=== PATIENT | female | born 1940 | race Caucasian/White ===

== ENCOUNTER 2017-10-02 06:03 | Inpatient (IN) | payer OTHER ==
[2017-09-07 14:20] VITALS: BMI 43.0
--- NOTE | 2017-09-07 14:48 | PAT Medication Instructions ---
Service Date Sep 07, 2017. Current Home Medication List Acetaminophen (Tylenol), 1,000 MG PO TID PRN for RN Albuterol Sulfate (Proair Respiclick), 2 PUFFS INH PRN Aloe Vera (Topical) (Aloe Vera), 1 TAB PO HS Amoxicillin (Amoxil), 2,000 MG PO UD PRN for RN Anastrozole (Arimidex), 1 MG PO QPM Aspirin (Aspirin Ec), 81 MG PO QAM Bioflavonoid Products (Nelia-C), 1 TAB PO QPM Biotin (Biotin 5000), 5 MG PO QAM Buspirone Hcl (Buspar), 5 MG PO BID Calcium Carbonate-Vitamin D (Calcium + D), 1 TAB PO QAM Carvedilol (Coreg), 25 MG PO BID Cholecalciferol (Vitamin D3), 1 TAB PO QPM Coenzyme Q10 (Ubidecarenone) (Coq10), 150 MG PO QAM Flaxseed (Linseed) (Flax Seed Oil), 1 TAB PO QPM Hydrochlorothiazide (Hydrochlorothiazide), 0.5 TAB PO QAM Lactobacillus (Probiotic Acidophilus), 1 TAB PO QAM Levothyroxine Sodium (Levothyroxine Sodium), 1 TAB PO QAM Losartan Potassium (Cozaar), 100 MG PO QAM Mometasone Furoate (Inhalation (Asmanex Hfa), 2 PUFFS INH QPM Ocuvite Preservision (Ocuvite Preservision), 1 TAB PO HS Omeprazole (Prilosec), 40 MG PO QAM Pravastatin (Pravachol ), 10 MG PO HS [Bee Pollen], 1 TAB PO QAM [Beet Root], 500 MG PO BID [Cellular Antioxidant], 1 TAB PO QPM [Garlic Parsley], 3 TAB PO BID [Zinc], 50 MG PO QPM Medication Instructions For Your Scheduled Surgery -Continue as directed: Amoxicillin (Amoxil), 2,000 MG PO UD PRN for RN -Contact your prescriber for instructions for: Anastrozole (Arimidex), 1 MG PO QPM - Hold the following medications 2 weeks prior to surgery: [Bee Pollen], 1 TAB PO QAM [Beet Root], 500 MG PO BID [Cellular Antioxidant], 1 TAB PO QPM [Garlic Parsley], 3 TAB PO BID Coenzyme Q10 (Ubidecarenone) (Coq10), 150 MG PO QAM Flaxseed (Linseed) (Flax Seed Oil), 1 TAB PO QPM - Hold the following medications 24 hours prior to surgery: Aloe Vera (Topical) (Aloe Vera), 1 TAB PO HS - Hold the following medications the morning of surgery: Biotin (Biotin 5000), 5 MG PO QAM Calcium Carbonate-Vitamin D (Calcium + D), 1 TAB PO QAM Hydrochlorothiazide (Hydrochlorothiazide), 0.5 TAB PO QAM Lactobacillus (Probiotic Acidophilus), 1 TAB PO QAM Losartan Potassium (Cozaar), 100 MG PO QAM - Take the following medications the morning of surgery with a sip of water: Acetaminophen (Tylenol), 1,000 MG PO TID PRN for RN (if needed, can be taken up to four hours prior to surgery) Albuterol Sulfate (Proair Respiclick), 2 PUFFS INH PRN (if needed, and bring it with you to the hospital) Aspirin (Aspirin Ec), 81 MG PO QAM Buspirone Hcl (Buspar), 5 MG PO BID Carvedilol (Coreg), 25 MG PO BID Levothyroxine Sodium (Levothyroxine Sodium), 1 TAB PO QAM Omeprazole (Prilosec), 40 MG PO QAM - Take the following medications as scheduled the night before surgery: Acetaminophen (Tylenol), 1,000 MG PO TID PRN for RN (if needed) Albuterol Sulfate (Proair Respiclick), 2 PUFFS INH PRN (if needed) Bioflavonoid Products (Nelia-C), 1 TAB PO QPM Cholecalciferol (Vitamin D3), 1 TAB PO QPM Buspirone Hcl (Buspar), 5 MG PO BID Carvedilol (Coreg), 25 MG PO BID Mometasone Furoate (Inhalation (Asmanex Hfa), 2 PUFFS INH QPM Ocuvite Preservision (Ocuvite Preservision), 1 TAB PO HS Pravastatin (Pravachol ), 10 MG PO HS [Zinc], 50 MG PO QPM If you have any questions please call us at [phone] or [phone] or [phone]
--- NOTE | 2017-09-07 15:45 | DIAGNOSTIC IMAGING REPORT ---
CHEST 2 VIEWS ROUTINE HISTORY: 77 years-old Female PAT preoperative exam. No acute chest complaints. COMPARISON: None available TECHNIQUE: PA and lateral views of the chest FINDINGS: Cardiac silhouette is within normal limits. No pneumothorax, pleural effusion or overt pulmonary edema. There is increased lucency about the left lung compared to the right. Areas of chronic interstitial coarsening are noted, greatest about the right lung with subpleural reticular opacities of the lateral left lung base. Bones appear grossly intact. Degenerative changes are seen within the shoulders and spine. Surgical clips project over the upper abdomen. IMPRESSION: 1. No acute process identified. 2. Areas of bilateral interstitial coarsening, right greater then left favor chronic changes. Correlate with prior imaging. 2. Hyperinflation with possible emphysema. The above report was generated using voice recognition software. It may contain grammatical, syntax or spelling errors. Electronically signed by: Matt Cunningham M.D. 09/07/2017 3:44 PM Dictated Date/Time: 09/07/2017 3:42 PM
[2017-09-07 16:04] LABS: BASO % 0.8 %; BASO ABS # 0.03 K/uL (0-0.2); EOS % 3.1 %; EOS ABS # 0.12 K/uL (0-0.5); HEMOGLOBIN 13.2 g/dL (12.0-16.0); IG# 0.01 K/uL (0.00-0.02); LYMPH % 25.6 %; LYMPH ABS # 0.98 K/uL (1.2-3.4); MEAN CELL VOLUME 89.4 fL (80-100); MEAN CORPUSCULAR HEMOGLOBIN 31.1 pg (25-34); MEAN CORPUSCULAR HGB CONC 34.7 g/dl (32-36); MEAN PLATELET VOLUME 9.8 fL (7.4-10.4); MONO % 17.2 %; MONO ABS # 0.66 K/uL (0.11-0.59); NEUT ABS # 2.03 K/uL (1.4-6.5); PLATELET COUNT 120 K/uL (130-400); RED CELL DISTRIBUTION WIDTH CV 13.6 % (11.5-14.5); RED CELL DISTRIBUTION WIDTH SD 44.6 fL (36.4-46.3); WHITE BLOOD COUNT 3.83 K/uL (4.8-10.8)
[2017-09-07 16:14] LABS: PTT PATIENT 23.3 SECONDS (21.0-31.0)
[2017-09-07 16:23] LABS: ALBUMIN 3.9 gm/dl (3.4-5.0); CREATININE 0.82 mg/dl (0.60-1.20); POTASSIUM 4.5 mmol/L (3.5-5.1)
[2017-09-08 07:47] LABS: HEMOGLOBIN A1C 5.9 % (4.5-5.6)
--- NOTE | 2017-09-27 14:56 | HISTORY & PHYSICAL EXAMINATION ---
DATE OF ADMISSION: 10/02/2017 CHIEF COMPLAINT: Left knee pain. HISTORY OF PRESENT ILLNESS: Ms. Luna is a 77-year-old female with a 20-year history of left knee pain. The patient rates her pain as 8/10. She has pain with her daily activities. She has limited standing and walking tolerance. Pain is worse with weightbearing. The patient has had injections, Tylenol, PT and ambulates with a walker. She has failed conservative treatment and is scheduled for left knee replacement. PAST MEDICAL HISTORY: History of breast cancer, hypertension, hyperlipidemia, asthma, AFib, thyroid disease. She denies diabetes or DVT. PAST SURGICAL HISTORY: Right TKA and cardiac ablation. SOCIAL HISTORY: The patient denies alcohol or tobacco use. She lives in a 2-greg home. She does have a chair lift. She is and retired. FAMILY HISTORY: Negative for DVT. MEDICATIONS: Buspirone 5 mg b.i.d., calcium citrate plus D3, Nelia-C 1000 mg, Asmanex 220 mcg 2 puffs daily, ProAir HFA 90 mcg p.r.n. ALLERGIES: BACTRIM, CELEBREX, TERRAMYCIN. REVIEW OF SYSTEMS: See HPI. Ten other systems reviewed, all negative. PHYSICAL EXAMINATION: VITAL SIGNS: Height 5 foot 5 inches, weight 262 pounds, BMI 44. GENERAL: This is a well developed, well nourished female who is alert and oriented x3. Mood and affect are appropriate. HEENT: Normocephalic, atraumatic. Mucous membranes are moist and intact. NECK: Supple without lymphadenopathy. HEART: Regular rate and rhythm. She has a grade 3 systolic murmur. LUNGS: Clear to auscultation without wheezes or rhonchi. ABDOMEN: Soft and nontender. Bowel sounds are equal and active. EXTREMITIES: No ecchymosis, redness or warmth. She has moderate distal edema. She is neurovascularly intact. She has varus deformity. Range of motion is from 10-90 degrees with no medial or lateral laxity. She is otherwise neurovascularly intact. X-RAY EXAMINATION: AP and lateral views showed joint space narrowing and osteophyte formation. IMPRESSION: 1. Degenerative joint disease, left knee. 2. Morbid obesity. PLAN: The patient will be admitted for a left total knee arthroplasty. We will plan on aspirin for DVT prophylaxis. The patient will have [facility] for home physical therapy.
[~2017-10-02] VITALS: Ht 165.1 cm; Wt 118.8 kg
[2017-10-02] VITALS (9 sets, daily range): BP systolic 126–186; BP diastolic 81–95; PULSE 63–97; TEMP 36.4–36.9; O2SAT 95–99; Ht 165.1 cm; Wt 118.8 kg
[~2017-10-02 06:03] MED LIST: ACET-1256 PO; ACETAMINOPHEN 500 MG TAB PO SCH; ALBU18002 INH; ALOE1GEL2 PO; AMOX500C3 PO; ANAS1TAB19 PO; ASPI81TA28 PO; BEE POLLEN PO; BEET ROOT PO; BIOF500T PO; BIOTCAP2 PO; BUSP15TA70 PO; CALC600T9 PO; CARV25TA2 PO; CEFAZOLIN 2000MG IV PUSH 15 ML IV SCH; CHOL20007 PO; COEN150C4 PO; DEXAMETHASONE 4 MG TAB PO SCH; FAMOTIDINE 20 MG TAB PO SCH; FLAX1CAP11 PO; GABAPENTIN 300 MG CAP PO SCH; GARLIC PARSLEY PO; HYDR12.55 PO; LACT1CAP21 PO; LACTATED RINGER'S 1000ML 1,000 ML IV SCH; LACTATED RINGER'S 1000ML 500 ML IV SCH; LEVO100T7 PO; LOSA1TAB38 PO; METOCLOPRAMIDE HCL 10 MG TAB PO SCH; MOME1AER5 INH; MULT-190 PO; PRAV20TA PO; PRLSR20 PO; ROPIVACAINE 5MG/ML 30 ML 150 MG, BUPIVACAINE 0.5% MPF INJ 30 ML, EpINEphrine HCL INJ 0.... INFIL SCH; ZINC PO; [UNRECOGNIZED DRUG - OTHER] PO
--- NOTE | 2017-10-02 07:00 | History & Physical Bridge Note ---
H&P Re-Evaluation Bridge Note: I have examined the patient, reviewed the History & Physical and in the interval since the performance of the History & Physical I have noted the following changes of clinical significance: No changes noted
[2017-10-02] MEDS ORDERED: BUPIVACAINE 0.5 % 5 MG/1 ML PF 10ML VIAL ONE (07:34)
[2017-10-02] MEDS ORDERED: ROPIVACAINE 0.5% 5 MG/ML 30 ML VIAL ONE (07:34)
[2017-10-02] MEDS ORDERED: BACITRACIN 50000 UNIT VIAL ONE (08:37)
[2017-10-02] MEDS ORDERED: POVIDONE-IODINE OP SOLN 30 ML BTL ONE (08:37)
[2017-10-02] MEDS ORDERED: ORTHO JOINT ANESTHETIC ONE (08:37)
[2017-10-02] MEDS ORDERED: MIDAZOLAM HCL 1 MG/ML 2ML VIAL ONE (08:40)
[2017-10-02] MEDS ORDERED: FENTANYL CITRATE INJ 50 MCG/1 ML 2 ML VIAL ONE (08:41)
[2017-10-02] MEDS ORDERED: EpHEDrine SULFATE INJ 50 MG/ML AMP IV PRN (08:45)
[2017-10-02] MEDS ORDERED: FENTANYL CITRATE INJ 50 MCG/1 ML 2 ML VIAL IV PRN (08:45)
[2017-10-02] MEDS ORDERED: HYDROmorphone INJ 0.5 MG/0.5 ML SYR IV PRN (08:45)
[2017-10-02] MEDS ORDERED: ATROPINE SULFATE 0.1 MG/ML 5ML SYR IV PRN (08:45)
[2017-10-02] MEDS ORDERED: MEPERIDINE HCL 25 MG/ML CARP IV PRN (08:45)
[2017-10-02] MEDS ORDERED: ONDANSETRON INJ 2 MG/ML 2 ML VIAL IV PRN ×2 (08:45→11:15)
[2017-10-02] MEDS: TRANEXAMIC ACID INJ 1,000 MG x 2 Bags IV SCH ×4 (09:00→13:50)
[2017-10-02] MEDS ORDERED: PROPOFOL IV EMULSION 10 MG/ML 20 ML VIAL IV ONE (09:56)
--- NOTE | 2017-10-02 10:29 | [facility] Post Operative Brief Note ---
Immediate Operative Summary Operative Date Oct 02, 2017. Pre-Operative Diagnosis Degenerative joint disease, left knee Post-Operative Diagnosis Same as preop Procedure(s) Performed Left Total Knee Arthroplasty utilizing onlinetours journey to patient match total knee arthroplasty size 5 femur 4 tibia 15 polyethylene [address] Santiago Dispatcher Service Surgeon(s) Carina Pulido PA-C Estimated Blood Loss 5 cc Findings Consistent with Post-Op Diagnosis Specimens A: left knee bone and tissue Anesthesia Type MAC Spinal Regional Complication(s) none Disposition Disposition: Recovery Room / PACU
--- NOTE | 2017-10-02 10:31 | [facility] Operative Report ---
Operative Report Operative Date Oct 02, 2017. Pre-Operative Diagnosis Degenerative joint disease, left knee Post-Operative Diagnosis Same as preop Procedure(s) Performed Left Total Knee Arthroplasty utilizing [employer] journey to patient match total knee arthroplasty size 5 femur 4 tibia 15 polyethylene [address] Santiago Business Partner Surgeon(s) Carina Pulido PA-C Estimated Blood Loss 5 cc Findings Patient presents with severe end-stage tricompartmental degenerative joint disease left knee no response to conservative therapy including physical therapy anti-inflammatories relative rest activity modification injections at the 5 surgeon is evidence of subchondral sclerosis cystic changes marginal osteophytes she has varus alignment of knee with crepitation and a large effusion Specimens A: left knee bone and tissue Anesthesia Type MAC Spinal Regional Complication(s) none Disposition Recovery Room / PACU Indications Patient presents with severe end-stage tricompartment degenerative joint disease left knee bone the bone changes subchondral sclerosis marginal osteophytes subchondral cystic changes with significant eburnated bone bone to bone changes medial compartment and patellofemoral compartment should be no response to conservative therapy including physical therapy relative rest activity modification she is ligamentous instability due to the significant severe nature of the meniscal articular cartilage loss she presents for total knee arthroplasty Description of Procedure After proper prepping and draping of the left lower extremity anterior midline incision was made over the region of the extensor extensor mechanism after meticulous hemostasis was obtained and maintained in subcutaneous tissues a medial parapatellar incision was made The patella was subluxed lateralward the medial lateral gutter were cleaned from any hypertrophic synovitis and scar tissue of the distal femoral block was placed and the distal femoral osteotomy cut was made subsequently the chamfers anterior and posterior osteotomy cuts were made utilizing the 4-in-1 block the tibia was subsequently subluxed anteriorward medial and ateral meniscal remnants were excised in their entirety remnants of the anterior and posterior cruciate ligaments were excised in their entirety excellent exposure of the proximal tibia was obtained the tibial osteotomy guide was placed on the proximal tibial osteotomy cut was made once again the knee was irrigated with copious amounts of sterile saline solution the patella was subsequently everted lateralward thickened scar tissue around the patella was removed the patella was subsequently cut utilizing a freehand technique and was drilled prepared for final preparation and placement of patella socially flexion-extension gaps were checked and the equal and symmetric trials were placed to the appropriate femoral and tibial trials with poly-spacer being placed for equal flexion and extension gaps and full range of motion including extension to 0 and flexion to 140 the trial components after having been taken to recovery range of motion was subsequently removed meticulous hemostasis was obtained and maintained subsequently a knee block injection of joint cocktail including ropivacaine 0.5% 150 mg. Bupivacaine 0.5 % epinephrine 1-200,030 mL's toradol 30 mg dexamethasone 4 mg ketamine 10 mg clonidine 100 micrograms normal saline solution 30 mg was infiltrated into the soft tissues of the posterior knee medial lateral gutters and periosteal synovium special attention was paid to protect neurovascular structures at all times subsequently trial components having been removed the knee was irrigated with sterile saline solution. debris was removed the proximal tibia was subsequently prepared and was made ready for the placement of the tibial component tibial component was also cemented and tamped into position the femoral component was subsequently placed and cemented in the position the patellar component was subsequently cemented in position because hemostasis once again obtained and maintained wound having been thoroughly irrigated with debridement and debridement lavage was performed as well as a medial parapatellar incision closed with #1 Vicryl in interrupted fashion subcutaneous was closed with #2 Vicryl skin was closed with skin clips. PA-C was necessary for prepping and drapping as well as wound closure of deep fascia Sub cutaneous tissue and skin and was necessary for the case. A sterile compressive dressing was placed patient was taken to recovery in stable condition of report dictated by Jack I attest to the content of the Intraoperative Record and any orders documented therein. Any exceptions are noted below. I attest to the content of the Intraoperative Record and any orders documented therein. Any exceptions are noted below.
[2017-10-02] MEDS ORDERED: KETOROLAC TROMETHAMINE 15 MG/ML VIAL IV. PRN (11:15)
[2017-10-02] MEDS ORDERED: MoRPHine SULFATE 2 MG/ML CARP IV PRN (11:15)
[2017-10-02] MEDS ORDERED: BISACODYL 10 MG SUPP PR PRN (11:15)
[2017-10-02] MEDS ORDERED: ZOLPIDEM TARTRATE 5 MG TAB PO PRN (11:15)
[2017-10-02] MEDS ORDERED: ALBUTEROL HFA INHALER 8.5 GM INH PRN (11:15)
[2017-10-02] MEDS ORDERED: MAGNESIUM HYDROXIDE SUSP 30 ML UDC PO PRN (11:15)
[2017-10-02] MEDS ORDERED: SOD PHOSPHATE/SOD BIPHOSPHATE ENEMA 132 ML BTL PR PRN (11:15)
[2017-10-02] MEDS: LABETALOL HCL IV 5 MG/ML 20ML IV PRN ×3 (11:32→12:08)
[2017-10-02] MEDS ORDERED: NURSING VERBAL MED ORDER ONE (11:35)
[2017-10-02] MEDS ORDERED: LORAZEPAM 2 MG/ML 1 ML VIAL ONE (11:37)
--- NOTE | 2017-10-02 11:58 | DIAGNOSTIC IMAGING REPORT ---
LEFT KNEE 2 VIEWS History: Left total knee arthroplasty. Degenerative arthritis. Postop. FINDINGS: The patient is status post a left total knee arthroplasty. The hardware is intact. No fracture or dislocation. Skin gisella and surgical drains are in place. IMPRESSION: Left total knee arthroplasty. No evidence for hardware complication. Electronically signed by: Estrada Bower M.D. 10/02/2017 11:56 AM Dictated Date/Time: 10/02/2017 11:56 AM
--- NOTE | 2017-10-02 13:34 | Anesthesiology Progress Note ---
Anesthesia Post Op Note Date & Time Oct 02, 2017 at 13:33 Vital Signs Pain Intensity: 0.0 Vital Signs Past 12 Hours Date Time Temp Pulse Resp B/P (MAP) Pulse Ox O2 Delivery O2 Flow Rate FiO2 10/02/17 13:10 Nasal Cannula 2.0 10/02/17 13:00 36.6 89 18 155/95 (115) 97 Nasal Cannula 2.0 10/02/17 12:45 85 14 117/65 95 Nasal Cannula 2 10/02/17 12:30 67 15 116/80 95 Nasal Cannula 2 10/02/17 12:20 36.8 80 13 148/84 95 Nasal Cannula 2 10/02/17 12:10 73 13 159/90 97 Nasal Cannula 2 10/02/17 12:00 70 15 176/101 98 Nasal Cannula 2 10/02/17 11:50 78 16 181/102 99 Nasal Cannula 2 10/02/17 11:40 80 17 188/107 100 Nasal Cannula 2 10/02/17 11:30 80 16 171/101 100 Nasal Cannula 2 10/02/17 11:20 81 19 166/101 100 Nasal Cannula 2 10/02/17 11:10 37.2 79 12 160/93 97 Nasal Cannula 2 10/02/17 07:59 36.4 63 20 186/81 99 Room Air Notes Mental Status: alert / awake / arousable, participated in evaluation Pt Amnestic to Procedure: Yes Nausea / Vomiting: adequately controlled Pain: adequately controlled Airway Patency, RR, SpO2: stable & adequate BP & HR: stable & adequate Hydration State: stable & adequate Neuraxial Anesthesia: was administered, sensory block is resolving Anesthetic Complications: no major complications apparent
[2017-10-02] MEDS: D5W AND 1/2NSS + 20MEQ KCL 1,000 ML IV SCH ×2 (13:47→23:39)
[2017-10-02] MEDS: ACETAMINOPHEN 500 MG TAB PO SCH ×2 (13:49→21:34)
[2017-10-02] MEDS: LOSARTAN POTASSIUM 50 MG TAB PO SCH (13:54)
[2017-10-02] MEDS: OXYCODONE HCL IR 5 MG TAB (IMMEDIATE RELEASE) PO PRN ×2 (16:50→18:12)
[2017-10-02] MEDS: CEFAZOLIN IV 2,000 MG in SYRINGE 0 ML IV SCH (18:13)
[2017-10-02] MEDS: PRAVASTATIN SOD 20 MG TAB PO SCH (21:29)
[2017-10-02] MEDS: DOCUSATE SODIUM 100 MG CAP PO SCH (21:30)
[2017-10-02] MEDS: MOMETASONE FUROATE 14 PUFF/1 INHALER INH SCH (21:30)
[2017-10-02] MEDS: SENNA 8.6 MG TAB PO SCH (21:31)
[2017-10-02] MEDS: ANASTROZOLE 1 MG TAB PO SCH (21:33)
[2017-10-02] MEDS: CEROVITE ADV FORMULA TAB PO SCH (21:35)
[2017-10-02] MEDS: ASPIRIN 81 MG ECTAB PO SCH (21:35)
[2017-10-02] MEDS: CHOLECALCIFEROL 1000 INTER.UNIT TAB PO SCH (21:36)
[2017-10-02] MEDS: CARVEDILOL 25 MG TAB PO SCH ×2 (21:45→22:17)
[2017-10-03] MEDS: CEFAZOLIN IV 2,000 MG in SYRINGE 0 ML IV SCH (01:31)
[2017-10-03] MEDS: OXYCODONE HCL IR 5 MG TAB (IMMEDIATE RELEASE) PO PRN ×4 (01:32→20:13)
[2017-10-03 03:00] VITALS: BP 144/85; PULSE 69; TEMP 36.4; O2SAT 98
[2017-10-03] MEDS: LEVOTHYROXINE 100 MCG TAB PO SCH (05:50)
[2017-10-03] MEDS: ACETAMINOPHEN 500 MG TAB PO SCH ×3 (05:50→21:30)
[2017-10-03 06:14] LABS: HEMATOCRIT 28.9 % (37-47); MEAN CELL VOLUME 89.5 fL (80-100); MEAN CORPUSCULAR HGB CONC 34.6 g/dl (32-36); RED CELL DISTRIBUTION WIDTH CV 13.7 % (11.5-14.5); RED CELL DISTRIBUTION WIDTH SD 45.1 fL (36.4-46.3); WHITE BLOOD COUNT 9.48 K/uL (4.8-10.8)
[2017-10-03 06:38] LABS: MEAN PLATELET VOLUME 10.6 fL (7.4-10.4); PLATELET COUNT 89 K/uL (130-400)
[2017-10-03 06:47] LABS: CREATININE 0.89 mg/dl (0.60-1.20); POTASSIUM 4.9 mmol/L (3.5-5.1)
--- NOTE | 2017-10-03 07:02 | Orthopedic Progress Note ---
Orthopedic Progress Note Date of Service Oct 03, 2017. Subjective Post OP Day: 1 Reports: feeling well, pain controlled w PO medications, Denies: complaints, chest pain, SOB, nausea / vomiting, light headedness, calf pain Objective calves soft nontender, N/V intact, capillary refill less than 2 sec., dressing C /D/I, A&O x3, toes mobile, hemovac drainage (325cc/8 hours) Date Time Temp Pulse Resp B/P (MAP) Pulse Ox O2 Delivery O2 Flow Rate FiO2 10/03/17 03:00 36.4 69 16 144/85 (104) 98 Room Air 10/02/17 23:44 Room Air 10/02/17 23:30 36.9 71 18 136/85 (102) 97 Room Air 10/02/17 21:45 86 152/86 (108) 10/02/17 19:05 36.8 83 18 126/81 (96) 96 Room Air 10/02/17 16:17 36.7 93 18 139/93 (108) 95 Room Air 10/02/17 15:10 36.7 97 18 137/84 (101) 97 Nasal Cannula 2.0 10/02/17 13:58 36.8 85 16 153/93 (113) 99 Nasal Cannula 2.0 10/02/17 13:33 87 18 152/91 (111) 98 Nasal Cannula 2.0 10/02/17 13:10 Nasal Cannula 2.0 10/02/17 13:10 Room Air 10/02/17 13:00 36.6 89 18 155/95 (115) 97 Nasal Cannula 2.0 10/02/17 12:45 85 14 117/65 95 Nasal Cannula 2 10/02/17 12:30 67 15 116/80 95 Nasal Cannula 2 10/02/17 12:20 36.8 80 13 148/84 95 Nasal Cannula 2 10/02/17 12:10 73 13 159/90 97 Nasal Cannula 2 10/02/17 12:00 70 15 176/101 98 Nasal Cannula 2 10/02/17 11:50 78 16 181/102 99 Nasal Cannula 2 10/02/17 11:40 80 17 188/107 100 Nasal Cannula 2 10/02/17 11:30 80 16 171/101 100 Nasal Cannula 2 10/02/17 11:20 81 19 166/101 100 Nasal Cannula 2 10/02/17 11:10 37.2 79 12 160/93 97 Nasal Cannula 2 10/02/17 07:59 36.4 63 20 186/81 99 Room Air Laboratory Results 24 Hours: Test 10/03/17 05:25 Hematocrit 28.9 % Hemoglobin 10.0 g/dL Prothromb Time International Ratio 1.0 Prothrombin Time 10.8 SECONDS Assessment & Plan Assessment: POD #1 s/p Left Total Knee Arthroplasty -pt/ot -dvt proph with sophie/scd/asa -plan for d/c home with HHPT when stable decreased platelet count POD#1, slight decrease from pre-op, will recheck CBC tomorrow am History of breast cancer hypertension hyperlipidemia asthma AFib thyroid disease Discharge Planning Discharge Planning: home with home health DVT Prophylaxis: TEDs, SCDs, ASA Therapy: Physical Therapy
[2017-10-03 07:52] VITALS: BP 122/74; PULSE 69; TEMP 36.5; O2SAT 98
[2017-10-03] MEDS: MULTIVITAMIN TAB PO SCH ×2 (08:41→21:29)
[2017-10-03] MEDS: DOCUSATE SODIUM 100 MG CAP PO SCH ×2 (08:41→21:28)
[2017-10-03] MEDS: LOSARTAN POTASSIUM 50 MG TAB PO SCH (08:41)
[2017-10-03] MEDS: CALCIUM 600MG + VIT D 400 IU TAB PO SCH (08:42)
[2017-10-03] MEDS: PANTOprazole SOD 40 MG TAB PO SCH (08:42)
[2017-10-03] MEDS: ASPIRIN 81 MG ECTAB PO SCH ×2 (08:42→21:28)
[2017-10-03] MEDS: CARVEDILOL 25 MG TAB PO SCH ×2 (09:26→21:28)
[2017-10-03] MEDS: D5W AND 1/2NSS + 20MEQ KCL 1,000 ML IV SCH (09:26)
[2017-10-03] MEDS: ALUMINUM/MAGNESIUM/SIMETH (MAALOX MAX) 30 ML UDC PO PRN ×2 (11:27→16:52)
--- NOTE | 2017-10-03 11:35 | Discharge Instructions ---
Discharge Instructions Date of Service Oct 03, 2017. Admission Reason for Admission: Left Knee Osteoarthritis Discharge Discharge Diagnosis / Problem: left total knee replacement Discharge Goals Goal(s): Decrease discomfort, Improve function, Increase independence Activity Recommendations Activity Limitations: as noted below Weightbearing Status: Left weightbearing (as tolerated) . Instructions / Follow-Up Instructions / Follow-Up ACTIVITY RECOMMENDATIONS: SELF CARE INSTRUCTIONS AFTER TOTAL KNEE REPLACEMENT A. You may need to continue a physical therapy program after discharge from the hospital. There are several options available to you. Your doctor will assist you in selecting the best one for you. 1. An out-patient facility 2 to 3 times a week for therapy or home therapy. 2. Continue working on all exercises taught to you in the hospital. Your goals should be to increase bending of your knee to 90 degrees and beyond and to fully straighten your knee. B. You may progress at your own pace from walking with a walker or crutches to a cane; then to no assistive devices. C. Make walking a part of your daily routine. Be up as much as comfortable with rest periods throughout the day. Rest with leg elevation is very important. Use the ice wrap frequently for the first 3-4 weeks. D. There are no restrictions on activities. You may ride in a car, shop, participate in payroll assistant and all social activities. E. Wear the long elastic stockings (EMILY hose) 20 hours a day for 2 weeks after surgery. They can be removed several times a day for laundering and for a bath. F. You may shower, no tub baths until cleared by your doctor. SPECIAL CARE INSTRUCTIONS: VERY IMPORTANT TO READ AND REVIEW A. There are a few signs you need to watch for after you are home. Call [facility] if you notice any of the followin. Increased severe knee pain. Some pain is expected especially when you exercise. 2. Increased swelling in your leg or knee; pain or swelling of the calf muscle in either lower leg. 3. Any fluid drainage from the incision. 4. Shortness of breath or chest pain. B. Please call [facility] at if you have any concerns or questions about your operation or recovery. The doctor or his nurse will return your call promptly. C. You must take antibiotics before dental work, bladder, bowel or other surgery. Your doctor will provide you with a permanent care to carry describing this precaution. IMPORTANT: * REMEMBER TO TAKE ASPIRIN, 81 MG, TWICE DAILY FOR 4 WEEKS UNLESS OTHERWISE DIRECTED. THIS IS YOUR BLOOD THINNER. * HIGH RISK PATIENTS MAY BE PRESCRIBED A STRONGER BLOOD THINNER. THIS WILL BE PROVIDED AT DISCHARGE. * CALL IF INCREASED PAIN, REDNESS, DRAINAGE OR FEVER GREATER THAT 101. * WEAR EMILY HOSE 20 HOURS PER DAY FOR 2 WEEKS. * Prevena- This is a large suction dressing covering your incision. This will help pull any excess drainage from the wound and allow your incision to heal properly. You may shower with this if you can keep the unit outside of the shower. If any bleeding or leakage is noted please call your doctor's office. This will remain on your incision for 7 days and then should be removed. This can be done yourself or by the home nursing staff if applicable. The entire unit is disposable once removed. Once removed, keep incision clean and dry. If redness or drainage is noted, please call your surgeon. FOLLOW UP VISIT: If appointment is not already scheduled: Please call [facility] to make a follow-up appointment for 2 weeks after your surgery at . Current Hospital Diet Patient's current hospital diet: Regular Diet Discharge Diet Recommended Diet: Regular Diet Procedures Procedures Performed: Left Total Knee Arthroplasty utilizing Kriyari journey to patient match total knee arthroplasty size 5 femur 4 tibia 15 polyethylene 32 oval patella Pending Studies Studies pending at discharge: no Laboratory Results Hemoglobin A1c Test 09/07/17 15:23 Range/Units Estimated Average Glucose 123 mg/dl Hemoglobin A1c 5.9 H 4.5-5.6 % Medical Emergencies . Who to Call and When: Medical Emergencies: If at any time you feel your situation is an emergency, please call 911 immediately. . Non-Emergent Contact Non-Emergency issues call your: Primary Care Provider, Surgeon . "Provider Documentation" section prepared by Johnson Pulido. . [place] Drug Monitoring Program Search Results: patient reviewed within database, no issues identified
[2017-10-03] MEDS ORDERED: ASPI-320 PO (11:40)
[2017-10-03] MEDS ORDERED: ACET-24 PO (11:40)
[2017-10-03] MEDS ORDERED: RXC5 PO (11:40)
[2017-10-03] MEDS ORDERED: CLC100 PO (11:40)
[2017-10-03] MEDS ORDERED: ONDA-170 PO (11:40)
[2017-10-03 12:05] VITALS: BP 104/66; PULSE 72; TEMP 36.6; O2SAT 99
[2017-10-03 15:21] VITALS: BP 116/78; PULSE 68; TEMP 36.6; O2SAT 93
[2017-10-03] MEDS: MOMETASONE FUROATE 14 PUFF/1 INHALER INH SCH (21:00)
[2017-10-03 21:25] VITALS: BP 145/85; PULSE 78
[2017-10-03] MEDS: SENNA 8.6 MG TAB PO SCH (21:27)
[2017-10-03] MEDS: PRAVASTATIN SOD 20 MG TAB PO SCH (21:28)
[2017-10-03] MEDS: CHOLECALCIFEROL 1000 INTER.UNIT TAB PO SCH (21:30)
[2017-10-03] MEDS: CEROVITE ADV FORMULA TAB PO SCH (21:30)
[2017-10-03] MEDS: ANASTROZOLE 1 MG TAB PO SCH (21:45)
[2017-10-03 23:20] VITALS: BP 176/83; PULSE 85; TEMP 37; O2SAT 98
[2017-10-03] MEDS ORDERED: LORAZEPAM 1 MG TAB PO STA (23:44)
[2017-10-04] MEDS: OXYCODONE HCL IR 5 MG TAB (IMMEDIATE RELEASE) PO PRN ×5 (02:25→20:37)
[2017-10-04 06:24] LABS: HEMATOCRIT 25.6 % (37-47); HEMOGLOBIN 8.7 g/dL (12.0-16.0); MEAN CELL VOLUME 89.8 fL (80-100); MEAN CORPUSCULAR HEMOGLOBIN 30.5 pg (25-34); RED CELL DISTRIBUTION WIDTH CV 14.2 % (11.5-14.5); RED CELL DISTRIBUTION WIDTH SD 47.3 fL (36.4-46.3); WHITE BLOOD COUNT 7.02 K/uL (4.8-10.8)
[2017-10-04 06:26] LABS: MEAN PLATELET VOLUME 10.2 fL (7.4-10.4); PLATELET COUNT 78 K/uL (130-400)
[2017-10-04] MEDS: LEVOTHYROXINE 100 MCG TAB PO SCH (06:29)
[2017-10-04] MEDS: ACETAMINOPHEN 500 MG TAB PO SCH ×3 (06:30→23:11)
[2017-10-04 06:44] LABS: BASO % 0.1 %; BASO ABS # 0.01 K/uL (0-0.2); EOS % 0.7 %; EOS ABS # 0.05 K/uL (0-0.5); IG# 0.02 K/uL (0.00-0.02); LYMPH % 16.2 %; LYMPH ABS # 1.14 K/uL (1.2-3.4); MONO % 15.5 %; MONO ABS # 1.09 K/uL (0.11-0.59); NEUT % 67.2 %; NEUT ABS # 4.71 K/uL (1.4-6.5)
[2017-10-04 07:06] VITALS: BP 142/84; PULSE 81; TEMP 37; O2SAT 99
--- NOTE | 2017-10-04 08:27 | Orthopedic Progress Note ---
Orthopedic Progress Note Date of Service Oct 04, 2017. Subjective Post OP Day: 2 Reports: feeling well, Denies: chest pain, SOB, nausea / vomiting, light headedness, calf pain Objective calves soft nontender, N/V intact, capillary refill less than 2 sec., dressing C /D/I (prevena), A&O x3, toes mobile Date Time Temp Pulse Resp B/P (MAP) Pulse Ox O2 Delivery O2 Flow Rate FiO2 10/04/17 07:06 37.0 81 18 142/84 (103) 99 Room Air 10/03/17 23:20 37.0 85 20 176/83 (114) 98 Room Air 10/03/17 21:25 78 145/85 (105) 10/03/17 20:00 Room Air 10/03/17 16:20 Room Air 10/03/17 15:21 36.6 68 16 116/78 (91) 93 Room Air 10/03/17 12:05 36.6 72 18 104/66 (79) 99 Room Air Laboratory Results 24 Hours: Test 10/04/17 05:47 White Blood Count 7.02 K/uL Red Blood Count 2.85 M/uL Hemoglobin 8.7 g/dL Hematocrit 25.6 % Mean Corpuscular Volume 89.8 fL Mean Corpuscular Hemoglobin 30.5 pg Mean Corpuscular Hemoglobin Concent 34.0 g/dl Platelet Count 78 K/uL Mean Platelet Volume 10.2 fL Neutrophils (%) (Auto) 67.2 % Lymphocytes (%) (Auto) 16.2 % Monocytes (%) (Auto) 15.5 % Eosinophils (%) (Auto) 0.7 % Basophils (%) (Auto) 0.1 % Neutrophils # (Auto) 4.71 K/uL Lymphocytes # (Auto) 1.14 K/uL Monocytes # (Auto) 1.09 K/uL Eosinophils # (Auto) 0.05 K/uL Basophils # (Auto) 0.01 K/uL Assessment & Plan Assessment: POD #2 s/p Left Total Knee Arthroplasty -pt/ot -dvt proph with sophie/scd/asa -plan for d/c home with HHPT when stable decreased platelet count POD#1, slight decrease from pre-op, 78 TODAY, CONTINUES TO TREND DOWN. PATIENT HAS HISTORY OF THIS BUT UNSURE OF DETAILS. FOLLOWS WITH DR. JOHNSON IN [place] FOR ONCOLOGY. WILL DISCUSS WITH [employer] TEAM. MAY CONSIDER HEME CONSULT BEFORE DISCHARGE. History of breast cancer hypertension hyperlipidemia asthma AFib thyroid disease Discharge Planning Discharge Planning: home with home health DVT Prophylaxis: TEDs, SCDs, ASA Therapy: Physical Therapy
[2017-10-04] MEDS: CALCIUM 600MG + VIT D 400 IU TAB PO SCH (09:17)
[2017-10-04] MEDS: DOCUSATE SODIUM 100 MG CAP PO SCH ×2 (09:18→20:57)
[2017-10-04] MEDS: CARVEDILOL 25 MG TAB PO SCH ×2 (09:18→20:58)
[2017-10-04] MEDS: ASPIRIN 81 MG ECTAB PO SCH ×2 (09:18→20:58)
[2017-10-04] MEDS: LOSARTAN POTASSIUM 50 MG TAB PO SCH (09:18)
[2017-10-04] MEDS: PANTOprazole SOD 40 MG TAB PO SCH (09:18)
[2017-10-04] MEDS: ALUMINUM/MAGNESIUM/SIMETH (MAALOX MAX) 30 ML UDC PO PRN (13:58)
[2017-10-04] MEDS ORDERED: LORAZEPAM INJ 1 MG in SYRINGE 0.5 ML IV PRN (14:00)
[2017-10-04] MEDS ORDERED: ATV/1 PO (14:16)
[2017-10-04 15:02] VITALS: BP 114/74; PULSE 73; TEMP 36.8; O2SAT 98
--- NOTE | 2017-10-04 18:58 | Oncology Consultation ---
Oncology/Heme Consultation Date of Consultation: Oct 04, 2017. Attending Physician: Guido Santiago D.O. Reason for Consultation: thromboCytopenia History of Present Illness Ms. Barrett is a 77-year-old female with a history of breast carcinoma that dates back to 11 years. The breast cancer was resected by mastectomy. She has been on tamoxifen since that time. No radiation or chemotherapy was given. She was admitted now for surgery on her left knee total left knee replacement was done 2 days ago. The patient postoperatively has had a platelet count that however is in the 80-90,000 range. At the outset the platelet count was 120, 000 were asked to come she reviews with me that years ago she was told that she may have Sjogren's. she states that her platelet counts tends to be in the 100K range. Notes reflect that calls to her stock layer/oncologist state (confirm) that the platelet number stays around 100,000. There has been no overt bleeding. She denies any fever or chills. There has been no petechiae. PT and PTT are normal Past Medical/Surgical History Thrombocytopenia Distant history of breast carcinoma Social History Smoking Status: Never Smoker Allergies Coded Allergies: Celecoxib (Verified Allergy, Unknown, ELEVATED LIVER ENYZMES, 10/02/17) Oxytetracycline (Verified Allergy, Unknown, ORAL MED-RASH, 10/02/17) Polymyxin B (Verified Allergy, Unknown, ORAL MED-RASH, 10/02/17) Sulfamethoxazole w/Trimethoprim (Verified Allergy, Unknown, VOMITING, 10/02) Tramadol (Verified Allergy, Unknown, UNABLE TO SLEEP, 10/02/17) Home Medications Scheduled Acetaminophen (Sb Non-Aspirin Extra Stre), 1,000 MG PO Q8H Albuterol Sulfate (Proair Respiclick), 2 PUFFS INH PRN Aloe Vera (Topical) (Aloe Vera), 1 TAB PO HS Anastrozole (Arimidex), 1 MG PO QPM Aspirin (Aspirin Ec), 81 MG PO QAM Aspirin (Aspirin EC Low Dose), 81 MG PO BID Bioflavonoid Products (Nelia-C), 1 TAB PO QPM Biotin (Biotin 5000), 5 MG PO QAM Buspirone Hcl (Buspar), 5 MG PO BID Calcium Carbonate-Vitamin D (Calcium + D), 1 TAB PO QAM Carvedilol (Coreg), 25 MG PO BID Cholecalciferol (Vitamin D3), 1 TAB PO QPM Coenzyme Q10 (Ubidecarenone) (Coq10), 150 MG PO QAM Docusate Sodium (Docusate Sodium), 100 MG PO BID Flaxseed (Linseed) (Flax Seed Oil), 1 TAB PO QPM Hydrochlorothiazide (Hydrochlorothiazide), 0.5 TAB PO QAM Lactobacillus (Probiotic Acidophilus), 1 TAB PO QAM Levothyroxine Sodium (Levothyroxine Sodium), 1 TAB PO QAM Lorazepam (Ativan), 1 MG PO TID Losartan Potassium (Cozaar), 100 MG PO QAM Mometasone Furoate (Inhalation (Asmanex Hfa), 2 PUFFS INH QPM Ocuvite Preservision (Ocuvite Preservision), 1 TAB PO HS Omeprazole (Prilosec), 40 MG PO QAM Pravastatin (Pravachol ), 10 MG PO HS [Bee Pollen], 1 TAB PO QAM [Beet Root], 500 MG PO BID [Cellular Antioxidant], 1 TAB PO QPM [Garlic Parsley], 3 TAB PO BID [Zinc], 50 MG PO QPM Scheduled PRN Acetaminophen (Tylenol), 1,000 MG PO TID PRN for RN Amoxicillin (Amoxil), 2,000 MG PO UD PRN for RN Ondansetron Hcl (Zofran), 8 MG PO Q8 PRN for Nausea Oxycodone HCl (Oxycodone HCl), 5-10 MG PO Q4H PRN for Pain Current Inpatient Medications Current Inpatient Medications Medications (Trade) Dose Ordered Sig/Lanette Route Start Time Stop Time Status Last Admin Dose Admin Oxycodone HCl (Roxicodone Immediate Rel Tab) 1 TABLET FOR PAIN RATING... Q4H PRN PO 10/02/17 11:15 10/16/17 11:14 10/04/17 16:35 10 MG Acetaminophen (Tylenol Tab) 1,000 mg Q8H PO 10/02/17 14:00 11/01/17 13:59 10/04/17 13:52 1,000 MG Magnesium Hydroxide (Milk Of Magnesia Susp) 30 ml Q6H PRN PO 10/02/17 11:15 11/01/17 11:14 Bisacodyl (Dulcolax Supp) 10 mg DAILY PRN ID 10/02/17 11:15 11/01/17 11:14 Sodium Biphosphate/ Sodium Phosphate (Fleet Enema) 132 ml DAILY PRN ID 10/02/17 11:15 11/01/17 11:14 Senna (Senokot Tab) 17.2 mg HS PO 10/02/17 21:00 11/01/17 20:59 10/03/17 21:27 17.2 MG Docusate Sodium (coLACE CAP) 100 mg BID PO 10/02/17 21:00 11/01/17 20:59 10/04/17 09:18 100 MG Diphenhydramine HCl (Benadryl Cap) 25 mg Q8H PRN PO 10/02/17 11:15 11/01/17 11:14 Al Hydrox/Mg Hydrox/Simethicone (Maalox Max Susp) 15 ml Q4H PRN PO 10/02/17 11:15 11/01/17 11:14 10/04/17 13:58 15 ML Zolpidem Tartrate (Ambien Tab) 5 mg HSZ PRN PO 10/02/17 11:15 11/01/17 11:14 Multivitamins (Multivitamin Tab) 1 tab QAM PO 10/03/17 09:00 11/02/17 08:59 10/03/17 21:29 1 TAB Ondansetron HCl (Zofran Inj) 4 mg Q6H PRN IV 10/02/17 11:15 11/01/17 11:14 Pantoprazole Sodium (Protonix Tab) 40 mg QAM PO 10/03/17 09:00 10/07/17 08:59 10/04/17 09:18 40 MG Anastrozole (Arimidex Tab) 1 mg QPM PO 10/02/17 21:00 11/01/17 20:59 10/03/17 21:45 1 MG Aspirin (Ecotrin Tab) 81 mg BID PO 10/02/17 21:00 11/01/17 20:59 10/04/17 09:18 81 MG Buspirone HCl (Buspar Tab) 5 mg BID PO 10/02/17 21:00 11/01/17 20:59 10/04/17 09:17 5 MG Carvedilol (Coreg Tab) 25 mg BID PO 10/02/17 21:00 11/01/17 20:59 10/04/17 09:18 25 MG Levothyroxine Sodium (Synthroid Tab) 100 mcg DAILYBB PO 10/03/17 06:00 11/02/17 05:59 10/04/17 06:29 100 MCG Losartan Potassium (coZAAR TAB) 100 mg QAM PO 10/02/17 13:30 11/01/17 13:29 10/04/17 09:18 100 MG Multivitamins/ Minerals (Multivitamin W/ Minerals Tab) 1 tab HS PO 10/02/17 21:00 11/01/17 20:59 10/03/17 21:30 1 TAB Pravastatin Sodium (Pravachol Tab) 10 mg HS PO 10/02/17 21:00 11/01/17 20:59 10/03/17 21:28 10 MG Albuterol (Proair Hfa) 2 puffs DAILY PRN INH 10/02/17 11:15 11/01/17 11:14 Calcium/Vitamin D (Caltrate Plus Tab) 1 tab QAM PO 10/03/17 09:00 11/02/17 08:59 10/04/17 09:17 1 TAB Cholecalciferol (Vitamin D Tab) 1,000 inter.unit QPM PO 10/02/17 21:00 11/01/17 20:59 10/03/17 21:30 1,000 INTER.UNIT Mometasone Furoate (Asmanex 220MCG Inh) 2 puff QPM INH 10/02/17 21:00 11/01/17 20:59 10/02/17 21:30 2 PUFF Morphine Sulfate (MoRPHine SULFATE INJ) @ Q4HWA PRN IV 10/02/17 11:15 10/16/17 11:14 Lorazepam 1 mg/ Syringe 1 ml @ 0.5 mls/min Q8H PRN IV 10/04/17 14:00 11/03/17 13:59 Review of Systems Constitutional: Negative for night sweats, or fever Eyes: Negative for event change of vision ENT: Negative for epistaxis, nasal discharge, sore throat, or deafness Cardiovascular: Negative for chest pain, palpitations, dizziness, diaphoresis Respiratory: Negative for new shortness of breath,hemoptysis, or purulent cough Gastrointestinal: Negative for diarrhea, hematemesis, melena, nausea, vomiting , or dyspepsia Integumentary (skin): Negative for rash or jaundice discoloration Genitourinary: Negative for urinary frequency, hematuria, or dysuria Neurological: Negative for weakness, seizure activity, headache, or dizziness Lymphatic/Hematologic: Negative for petechiae, bleeding or new adenopathy Musculoskeletal: Negative for new joint or back pain. Recently status post left knee replaced Allergic/Immunologic: Negative for unusual rash or pruritis. Physical Exam Date Time Temp Pulse Resp B/P (MAP) Pulse Ox O2 Delivery O2 Flow Rate FiO2 10/04/17 15:02 36.8 73 18 114/74 (87) 98 Room Air 10/04/17 07:15 Room Air 10/04/17 07:06 37.0 81 18 142/84 (103) 99 Room Air 10/03/17 23:20 37.0 85 20 176/83 (114) 98 Room Air 10/03/17 21:25 78 145/85 (105) 10/03/17 20:00 Room Air Constitutional: vitals are stable. Eyes: Eyes are ANASTACIO EOMI without conjuctival erythema or icterus. ENT: External examination was negative for masses. Neck: Negative for masses or palpable thyromegaly Respiratory: Lung sounds were generally clear bilaterally Cardiovascular: Heart was RRR without significant murmur, gallops aoe rubs Gastrointestinal: No palpable hepatic or splenomegaly. The abdomen was soft with normal bowel sounds. Lymphatic system: there was no palpable peripheral lymphadenopathy Musculoskeletal System: The musculoskeletal system seemed concordant with age. Skin: The skin was negative for jaundice. Neurologic exam: The exam was negative for any focal findings. Deep tendon reflexes were equal and symmetrical. Psychiatric exam: Was essentially negative with normal mood and effect. Breast exam: Done with patient permission was negative for palpable masses or corollary supraclavicular or axillary palpable adenopathy. Exam was witnessed by either a relative, electrical mechanic, or clinic staff. Post left mastectomy without any evidence of local regional recurrence breast is palpated to be normal. There is no palpable adenopathy. Extremities: Right leg without petechiae. The left leg is heavily bandaged status post surgery Laboratory Results Last 24 Hours Test 10/04/17 05:47 White Blood Count 7.02 K/uL Red Blood Count 2.85 M/uL Hemoglobin 8.7 g/dL Hematocrit 25.6 % Mean Corpuscular Volume 89.8 fL Mean Corpuscular Hemoglobin 30.5 pg Mean Corpuscular Hemoglobin Concent 34.0 g/dl Platelet Count 78 K/uL Mean Platelet Volume 10.2 fL Neutrophils (%) (Auto) 67.2 % Lymphocytes (%) (Auto) 16.2 % Monocytes (%) (Auto) 15.5 % Eosinophils (%) (Auto) 0.7 % Basophils (%) (Auto) 0.1 % Neutrophils # (Auto) 4.71 K/uL Lymphocytes # (Auto) 1.14 K/uL Monocytes # (Auto) 1.09 K/uL Eosinophils # (Auto) 0.05 K/uL Basophils # (Auto) 0.01 K/uL RDW Standard Deviation 47.3 fL RDW Coefficient of Variation 14.2 % Immature Granulocyte % (Auto) 0.3 % Immature Granulocyte # (Auto) 0.02 K/uL Red Blood Cell Morphology Unremarkable Assessment & Plan Thrombocytopenia. I reviewed the peripheral smear. Red cell morphology is quite banal. WHite cell morphology is normal. Platelets appear to be just slightly reduced in number. There is an occasional giant platelet. 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 Alternatively there may be an element of hypersplenism with a resultant chronic low-grade thrombocytopenia. In any case no intervention is needed. We will ask for a CBC and serum fibrinogen in the morning. If in fact the platelet count stays in this range that again no further intervention is needed.
[2017-10-04 19:50] VITALS: BP 102/68; PULSE 81; TEMP 37.1; O2SAT 97
[2017-10-04 20:52] VITALS: BP 147/82; PULSE 91
[2017-10-04] MEDS: ANASTROZOLE 1 MG TAB PO SCH (20:55)
[2017-10-04] MEDS: PRAVASTATIN SOD 20 MG TAB PO SCH (20:56)
[2017-10-04] MEDS: CEROVITE ADV FORMULA TAB PO SCH (20:57)
[2017-10-04] MEDS: CHOLECALCIFEROL 1000 INTER.UNIT TAB PO SCH (20:57)
[2017-10-04] MEDS: SENNA 8.6 MG TAB PO SCH (20:57)
[2017-10-04] MEDS: MOMETASONE FUROATE 14 PUFF/1 INHALER INH SCH (20:58)
[2017-10-04 23:23] VITALS: BP 134/75; PULSE 90; TEMP 36.9; O2SAT 96
[2017-10-05] MEDS: ACETAMINOPHEN 500 MG TAB PO SCH (05:51)
[2017-10-05] MEDS: OXYCODONE HCL IR 5 MG TAB (IMMEDIATE RELEASE) PO PRN ×2 (05:51→11:25)
[2017-10-05] MEDS: LEVOTHYROXINE 100 MCG TAB PO SCH (05:51)
[2017-10-05 07:27] VITALS: BP 137/83; PULSE 76; TEMP 37; O2SAT 98
[2017-10-05 07:31] LABS: HEMATOCRIT 24.9 % (37-47); HEMOGLOBIN 8.4 g/dL (12.0-16.0); MEAN CELL VOLUME 90.5 fL (80-100); MEAN CORPUSCULAR HEMOGLOBIN 30.5 pg (25-34); MEAN CORPUSCULAR HGB CONC 33.7 g/dl (32-36); RED CELL DISTRIBUTION WIDTH CV 14.2 % (11.5-14.5); WHITE BLOOD COUNT 7.22 K/uL (4.8-10.8)
[2017-10-05 07:43] LABS: MEAN PLATELET VOLUME 9.8 fL (7.4-10.4); PLATELET COUNT 75 K/uL (130-400)
[2017-10-05 08:15] LABS: BASO % 0.3 %; BASO ABS # 0.02 K/uL (0-0.2); EOS % 1.2 %; EOS ABS # 0.09 K/uL (0-0.5); IG# 0.02 K/uL (0.00-0.02); LYMPH % 13.7 %; LYMPH ABS # 0.99 K/uL (1.2-3.4); MONO % 13.9 %; NEUT % 70.6 %
[2017-10-05] MEDS: ALUMINUM/MAGNESIUM/SIMETH (MAALOX MAX) 30 ML UDC PO PRN (08:18)
[2017-10-05] MEDS: MULTIVITAMIN TAB PO SCH (08:18)
[2017-10-05] MEDS: CALCIUM 600MG + VIT D 400 IU TAB PO SCH (08:19)
[2017-10-05] MEDS: CEROVITE ADV FORMULA TAB PO SCH (08:19)
[2017-10-05] MEDS: PANTOprazole SOD 40 MG TAB PO SCH (08:19)
[2017-10-05] MEDS: ASPIRIN 81 MG ECTAB PO SCH (08:19)
[2017-10-05] MEDS: LOSARTAN POTASSIUM 50 MG TAB PO SCH (08:19)
[2017-10-05] MEDS: DOCUSATE SODIUM 100 MG CAP PO SCH (08:19)
[2017-10-05] MEDS: CARVEDILOL 25 MG TAB PO SCH (08:20)
--- NOTE | 2017-10-05 08:44 | Orthopedic Progress Note ---
Orthopedic Progress Note Date of Service Oct 05, 2017. Subjective Post OP Day: 3 Reports: feeling well, Denies: complaints Objective calves soft nontender, N/V intact, dressing C/D/I (Prevena), A&O x3, toes mobile Date Time Temp Pulse Resp B/P (MAP) Pulse Ox O2 Delivery O2 Flow Rate FiO2 10/05/17 08:15 Room Air 10/05/17 07:27 37.0 76 18 137/83 (101) 98 Room Air 10/04/17 23:25 Room Air 10/04/17 23:23 36.9 90 18 134/75 (94) 96 Room Air 10/04/17 20:52 91 147/82 (103) 10/04/17 19:50 37.1 81 18 102/68 (79) 97 Room Air 10/04/17 16:30 Room Air 10/04/17 15:02 36.8 73 18 114/74 (87) 98 Room Air Laboratory Results 24 Hours: Test 10/05/17 07:13 White Blood Count 7.22 K/uL Red Blood Count 2.75 M/uL Hemoglobin 8.4 g/dL Hematocrit 24.9 % Mean Corpuscular Volume 90.5 fL Mean Corpuscular Hemoglobin 30.5 pg Mean Corpuscular Hemoglobin Concent 33.7 g/dl Platelet Count 75 K/uL Mean Platelet Volume 9.8 fL Neutrophils (%) (Auto) 70.6 % Lymphocytes (%) (Auto) 13.7 % Monocytes (%) (Auto) 13.9 % Eosinophils (%) (Auto) 1.2 % Basophils (%) (Auto) 0.3 % Neutrophils # (Auto) 5.10 K/uL Lymphocytes # (Auto) 0.99 K/uL Monocytes # (Auto) 1.00 K/uL Eosinophils # (Auto) 0.09 K/uL Basophils # (Auto) 0.02 K/uL Assessment & Plan Assessment: POD #3 s/p Left Total Knee Arthroplasty -pt/ot -dvt proph with sophie/scd/asa -plan for d/c home with HHPT when stable Thrombocytopenia, slight decrease from yesterday, 75 TODAY; Dr Carrera has seen the patient. Planning for dc today. Plts appear to be stabilizing. Will plan for dc to home today with follow up with Dr Reardon next week. CBC's to be drawn tomorrow and Sunday with results to Dr Reardon. History of breast cancer hypertension hyperlipidemia asthma AFib thyroid disease Inhouse Planning Pain Management: Morphine, PO Tylenol, Oxy IR DVT Prophylaxis: Patito Agudelo, ASA Discharge Planning Discharge Planning: home with home health DVT Prophylaxis: JOAQUIN Agudelo Therapy: Physical Therapy
[2017-10-05] MEDS ORDERED: ATV/1 PO (08:45)
[2017-10-05] MEDS ORDERED: LORAZEPAM 1 MG TAB PO PRN (09:00)
[2017-10-05 09:07] VITALS: BP 119/79; PULSE 70; O2SAT 96
[2017-10-05 09:47] VITALS: BP 137/83; PULSE 76; TEMP 37; O2SAT 98
--- NOTE | 2017-10-05 09:57 | Hematology/Oncology Prog Note ---
Hematology/Onc Progress Note Date of Service Oct 05, 2017. Diagnoses Thrombocytopenia Medications Medications Administered Medications (Trade) Dose Ordered Sig/Lanette Route Start Time Stop Time Status Last Admin Dose Admin Cefazolin Sodium 15 ml @ 3.75 mls/ min PREOP IV 10/02/17 06:00 10/02/17 18:00 DC 10/02/17 09:20 3.75 MLS/MIN Dexamethasone (Decadron Tab) 8 mg PREOP PO 10/02/17 06:00 10/02/17 18:00 DC 10/02/17 08:37 8 MG Famotidine (Pepcid Tab) 20 mg PREOP PO 10/02/17 06:00 10/02/17 18:00 DC 10/02/17 08:37 20 MG Gabapentin (Neurontin Cap) 300 mg PREOP PO 10/02/17 06:00 10/02/17 18:00 DC 10/02/17 08:37 300 MG Metoclopramide HCl (Reglan Tab) 10 mg PREOP PO 10/02/17 06:00 10/02/17 18:00 DC 10/02/17 08:37 10 MG Tranexamic Acid 1000 mg/Sodium Chloride 110 ml @ 660 mls/hr TODAY@06,0630 IV 10/02/17 06:00 10/02/17 06:39 DC 10/02/17 09:00 660 MLS/HR Ropivacaine 150 mg/Bupivacaine HCl 30 ml/ Epinephrine HCl 0.15 mg/Ketorolac Tromethamine 30 mg/Dexamethasone Sodium Phosphate 4 mg/Ketamine HCl 10 mg/Clonidine 100 mcg/Sodium Chloride 93.35 ml @ 0 mls/hr TODAY@06 INFIL 10/02/17 06:00 10/02/17 06:01 DC 10/02/17 10:15 1 MLS/HR Lactated Ringer's 1,000 ml @ 15 mls/hr Q24H IV 10/02/17 06:00 10/02/17 18:00 DC 10/02/17 08:32 15 MLS/HR Lactated Ringer's 500 ml @ 999 mls/hr Q31M IV 10/02/17 06:00 10/02/17 06:30 DC 10/02/17 08:32 999 MLS/HR Povidone Iodine (Betadine Ophthalmic Prep Solution) 30 ml STK-MED ONCE .ROUTE 10/02/17 08:37 10/02/17 08:38 DC 10/02/17 10:15 30 ML Bacitracin (Bacitracin Inj) 50,000 units STK-MED ONCE .ROUTE 10/02/17 08:37 10/02/17 08:38 DC 10/02/17 10:15 50,000 UNITS Labetalol HCl (Normodyne IV) 5 mg Q5M PRN IV 10/02/17 08:45 10/02/17 15:00 DC 10/02/17 12:08 5 MG Potassium Chloride/Dextrose/ Sod Cl 1,000 ml @ 100 mls/hr Q10H IV 10/02/17 13:30 10/03/17 13:29 DC 10/03/17 09:26 100 MLS/HR Cefazolin Sodium 2000 mg/Syringe 15 ml @ 3.75 mls/ min Q8H IV 10/02/17 18:00 10/03/17 02:03 DC 10/03/17 01:31 3.75 MLS/MIN Oxycodone HCl (Roxicodone Immediate Rel Tab) 1 TABLET FOR PAIN RATING... Q4H PRN PO 10/02/17 11:15 10/16/17 11:14 10/05/17 05:51 10 MG Acetaminophen (Tylenol Tab) 1,000 mg Q8H PO 10/02/17 14:00 11/01/17 13:59 10/05/17 05:51 1,000 MG Senna (Senokot Tab) 17.2 mg HS PO 10/02/17 21:00 11/01/17 20:59 10/04/17 20:57 17.2 MG Docusate Sodium (coLACE CAP) 100 mg BID PO 10/02/17 21:00 11/01/17 20:59 10/05/17 08:19 100 MG Al Hydrox/Mg Hydrox/Simethicone (Maalox Max Susp) 15 ml Q4H PRN PO 10/02/17 11:15 11/01/17 11:14 10/05/17 08:18 15 ML Multivitamins (Multivitamin Tab) 1 tab QAM PO 10/03/17 09:00 11/02/17 08:59 10/05/17 08:18 1 TAB Pantoprazole Sodium (Protonix Tab) 40 mg QAM PO 10/03/17 09:00 10/07/17 08:59 10/05/17 08:19 40 MG Ketorolac Tromethamine (Toradol Inj) 15 mg Q6H PRN IV. 10/02/17 11:15 10/03/17 11:14 DC 10/03/17 08:46 15 MG Anastrozole (Arimidex Tab) 1 mg QPM PO 10/02/17 21:00 11/01/17 20:59 10/04/17 20:55 1 MG Aspirin (Ecotrin Tab) 81 mg BID PO 10/02/17 21:00 11/01/17 20:59 10/05/17 08:19 81 MG Buspirone HCl (Buspar Tab) 5 mg BID PO 10/02/17 21:00 11/01/17 20:59 10/05/17 08:19 5 MG Carvedilol (Coreg Tab) 25 mg BID PO 10/02/17 21:00 11/01/17 20:59 10/05/17 08:20 25 MG Levothyroxine Sodium (Synthroid Tab) 100 mcg DAILYBB PO 10/03/17 06:00 11/02/17 05:59 10/05/17 05:51 100 MCG Losartan Potassium (coZAAR TAB) 100 mg QAM PO 10/02/17 13:30 11/01/17 13:29 10/05/17 08:19 100 MG Multivitamins/ Minerals (Multivitamin W/ Minerals Tab) 1 tab HS PO 10/02/17 21:00 11/01/17 20:59 10/05/17 08:19 1 TAB Pravastatin Sodium (Pravachol Tab) 10 mg HS PO 10/02/17 21:00 11/01/17 20:59 10/04/17 20:56 10 MG Calcium/Vitamin D (Caltrate Plus Tab) 1 tab QAM PO 10/03/17 09:00 11/02/17 08:59 10/05/17 08:19 1 TAB Cholecalciferol (Vitamin D Tab) 1,000 inter.unit QPM PO 10/02/17 21:00 11/01/17 20:59 10/04/17 20:57 1,000 INTER.UNIT Mometasone Furoate (Asmanex 220MCG Inh) 2 puff QPM INH 10/02/17 21:00 11/01/17 20:59 10/04/17 20:58 2 PUFF Lorazepam (Ativan Inj) 2 mg STK-MED ONCE .ROUTE 10/02/17 11:37 10/02/17 11:38 DC 10/02/17 11:39 0.5 MG Lorazepam (Ativan Tab) 1 mg NOW STAT PO 10/03/17 23:44 10/03/17 23:45 DC 10/03/17 23:53 1 MG Lorazepam 1 mg/ Syringe 1 ml @ 0.5 mls/min Q8H PRN IV 10/04/17 14:00 10/05/17 09:01 DC 10/04/17 20:46 0.5 MLS/MIN Lorazepam (Ativan Tab) 1 mg TID PRN PO 10/05/17 09:00 11/04/17 08:59 10/05/17 09:42 1 MG Subjective I visited with the patient today as she was walking with a in the hallway. Is been no bleeding. Patient's platelet count is 75,000 fibrinogen is normal baseline PT and PTT are normal. I understand the discharge today Review of Systems: An abbreviated review of systems reveals no new symptoms. She does express anxiety. Vital Signs Vital Signs Past 12 Hours Date Time Temp Pulse Resp B/P (MAP) Pulse Ox O2 Delivery O2 Flow Rate FiO2 10/05/17 09:47 37.0 76 18 98 Room Air 10/05/17 08:15 Room Air 10/05/17 07:27 37.0 76 18 137/83 (101) 98 Room Air 10/04/17 23:25 Room Air 10/04/17 23:23 36.9 90 18 134/75 (94) 96 Room Air Physical Exam Constitutional: vitals are stable. Patient of the lower extremities showed no further or worsening ecchymosis and certainly no petechiae. Laboratory Last 24 Hours Test 10/05/17 07:13 White Blood Count 7.22 K/uL Red Blood Count 2.75 M/uL Hemoglobin 8.4 g/dL Hematocrit 24.9 % Mean Corpuscular Volume 90.5 fL Mean Corpuscular Hemoglobin 30.5 pg Mean Corpuscular Hemoglobin Concent 33.7 g/dl Platelet Count 75 K/uL Mean Platelet Volume 9.8 fL Neutrophils (%) (Auto) 70.6 % Lymphocytes (%) (Auto) 13.7 % Monocytes (%) (Auto) 13.9 % Eosinophils (%) (Auto) 1.2 % Basophils (%) (Auto) 0.3 % Neutrophils # (Auto) 5.10 K/uL Lymphocytes # (Auto) 0.99 K/uL Monocytes # (Auto) 1.00 K/uL Eosinophils # (Auto) 0.09 K/uL Basophils # (Auto) 0.02 K/uL RDW Standard Deviation 47.0 fL RDW Coefficient of Variation 14.2 % Immature Granulocyte % (Auto) 0.3 % Immature Granulocyte # (Auto) 0.02 K/uL Fibrinogen 413 mg/dl Assessment & Plan Platelet count today is 75,000. There is no evidence of bleeding. Fibrinogen level is normal. I believe she can be discharged. She knows to follow-up with her premises technician in [place]. She was informed of her platelet count today. I would suspect that her platelet count will return to her baseline in for 4-5 days. She is also been informed to be in touch with her physicians near home in [place] if in fact she should develop any bleeding.
--- NOTE | 2017-10-05 16:05 | Discharge Summary ---
Orthopedic Discharge Summary Admission Date/Reason Oct 02, 2017 at 09:00 Left Knee Osteoarthritis. Discharge Date/Disposition Oct 04, 2017 Home with services Diagnosis Principal Diagnosis: left knee osteoarthritis Procedure(s) Performed Left Total Knee Arthroplasty utilizing [facility] journey to patient match total knee arthroplasty size 5 femur 4 tibia 15 polyethylene 32 oval patella Consultations Hematology- low platelet count Medication Reconciliation New Medications: Lorazepam (Ativan) 1 Mg Tab 1 MG PO TID PRN for Anxiety, #9 TAB Ondansetron Hcl (Zofran) 8 Mg Tab 8 MG PO Q8 PRN for Nausea, #20 TAB Acetaminophen (Sb Non-Aspirin Extra Stre) 500 Mg Tab 1000 MG PO Q8H, #63 TAB Aspirin (Aspirin EC Low Dose) 81 Mg Ectab 81 MG PO BID for 30 Days, #60 TABS Docusate Sodium (Docusate Sodium) 100 Mg Cap 100 MG PO BID for 10 Days, #20 CAP Oxycodone HCl (Oxycodone HCl) 5 Mg Tab 5-10 MG PO Q4H PRN for Pain, #60 TAB Continued Medications: Albuterol Sulfate (Proair Respiclick) 108 Mcg/Act Aer 2 PUFFS INH PRN Aloe Vera (Topical) (Aloe Vera) 1 Gel Gel 1 TAB PO HS Amoxicillin (Amoxil) 500 Mg Cap 2000 MG PO UD PRN for RN, #21 CAP BEFORE DENTAL Anastrozole (Arimidex) 1 Mg Tab 1 MG PO QPM, TAB Bioflavonoid Products (Nelia-C) 1 Tab Tab 1 TAB PO QPM Biotin (Biotin 5000) 5 Mg Cap 5 MG PO QAM Buspirone Hcl (Buspar) 15 Mg Tab 5 MG PO BID, TAB Calcium Carbonate-Vitamin D (Calcium + D) 1 Tab Tab 1 TAB PO QAM Carvedilol (Coreg) 25 Mg Tab 25 MG PO BID, TAB Cholecalciferol (Vitamin D3) 2,000 Unit Tab 1 TAB PO QPM for 90 Days, TAB 3 Refills Coenzyme Q10 (Ubidecarenone) (Coq10) 150 Mg Cap 150 MG PO QAM Flaxseed (Linseed) (Flax Seed Oil) 1 Cap Cap 1 TAB PO QPM Hydrochlorothiazide (Hydrochlorothiazide) 12.5 Mg Tab 0.5 TAB PO QAM for 90 Days, #45 TAB 3 Refills Lactobacillus (Probiotic Acidophilus) 1 Cap Cap 1 TAB PO QAM Levothyroxine Sodium (Levothyroxine Sodium) 100 Mcg Tab 1 TAB PO QAM for 90 Days, #90 TAB 3 Refills Losartan Potassium (Cozaar) 100 Mg Tab 100 MG PO QAM, TAB Mometasone Furoate (Inhalation (Asmanex Hfa) 200 Mcg/Act Aer 2 PUFFS INH QPM Ocuvite Preservision (Ocuvite Preservision) 1 Tab Tab 1 TAB PO HS, TAB Omeprazole (Prilosec) 20 Mg Capcr 40 MG PO QAM, CAP Pravastatin (Pravachol ) 20 Mg Tab 10 MG PO HS, TAB [Bee Pollen] () 1 TAB PO QAM [Beet Root] () 500 MG PO BID [Cellular Antioxidant] () 1 TAB PO QPM [Garlic Parsley] () 3 TAB PO BID [Zinc] () 50 MG PO QPM Discontinued Medications: Acetaminophen (Tylenol) 500 Mg Tab 1000 MG PO TID PRN for RN, TAB Aspirin (Aspirin Ec) 81 Mg Tab 81 MG PO QAM Admission Physical Exam As per Admitting History & Physical. Hospital Course Patient was a same day admission after undergoing a successful left TKA. she tolerated the procedure well. Post-operatively, her activity was progressed and well tolerated. Please refer to daily progress notes and PT notes for complete details. After exam on 10/05/17, patient felt to be stable for discharge home with HHPT. Patient will f/u in the office in 2 weeks for further evaluation including x-rays and incision check, sooner if having any issues or concerns. Below are pertinent labs/studies during their hospital stay: Hematology was consulted for low platelet count which is stable at this time. Last Resulted CBC 10/05/17 07:13 Red Blood Count 2.75, Mean Corpuscular Volume 90.5, Mean Corpuscular Hemoglobin 30.5, Mean Corpuscular Hemoglobin Concent 33.7, Mean Platelet Volume 9.8, Neutrophils (%) (Auto) 70.6, Lymphocytes (%) (Auto) 13.7, Monocytes (%) (Auto) 13.9, Eosinophils (%) (Auto) 1.2, Basophils (%) (Auto) 0.3, Neutrophils # (Auto ) 5.10, Lymphocytes # (Auto) 0.99, Monocytes # (Auto) 1.00, Eosinophils # (Auto ) 0.09, Basophils # (Auto) 0.02 Last Resulted BMP 10/03/17 05:25 Last Vital Signs Documentation Date Time Temp Pulse Resp B/P (MAP) Pulse Ox O2 Delivery O2 Flow Rate FiO2 10/05/17 09:47 37.0 76 18 98 Room Air 10/05/17 07:27 137/83 (101) 10/02/17 15:10 2.0 Discharge Instructions ACTIVITY RECOMMENDATIONS: SELF CARE INSTRUCTIONS AFTER TOTAL KNEE REPLACEMENT A. You may need to continue a physical therapy program after discharge from the hospital. There are several options available to you. Your doctor will assist you in selecting the best one for you. 1. An out-patient facility 2 to 3 times a week for therapy or home therapy. 2. Continue working on all exercises taught to you in the hospital. Your goals should be to increase bending of your knee to 90 degrees and beyond and to fully straighten your knee. B. You may progress at your own pace from walking with a walker or crutches to a cane; then to no assistive devices. C. Make walking a part of your daily routine. Be up as much as comfortable with rest periods throughout the day. Rest with leg elevation is very important. Use the ice wrap frequently for the first 3-4 weeks. D. There are no restrictions on activities. You may ride in a car, shop, participate in mobile developer and all social activities. E. Wear the long elastic stockings (EMILY hose) 20 hours a day for 2 weeks after surgery. They can be removed several times a day for laundering and for a bath. F. You may shower, no tub baths until cleared by your doctor. SPECIAL CARE INSTRUCTIONS: VERY IMPORTANT TO READ AND REVIEW A. There are a few signs you need to watch for after you are home. Call [facility] if you notice any of the followin. Increased severe knee pain. Some pain is expected especially when you exercise. 2. Increased swelling in your leg or knee; pain or swelling of the calf muscle in either lower leg. 3. Any fluid drainage from the incision. 4. Shortness of breath or chest pain. B. Please call [facility] at if you have any concerns or questions about your operation or recovery. The doctor or his nurse will return your call promptly. C. You must take antibiotics before dental work, bladder, bowel or other surgery. Your doctor will provide you with a permanent care to carry describing this precaution. IMPORTANT: * REMEMBER TO TAKE ASPIRIN, 81 MG, TWICE DAILY FOR 4 WEEKS UNLESS OTHERWISE DIRECTED. THIS IS YOUR BLOOD THINNER. * HIGH RISK PATIENTS MAY BE PRESCRIBED A STRONGER BLOOD THINNER. THIS WILL BE PROVIDED AT DISCHARGE. * CALL IF INCREASED PAIN, REDNESS, DRAINAGE OR FEVER GREATER THAT 101. * WEAR EMILY HOSE 20 HOURS PER DAY FOR 2 WEEKS. * Prevena- This is a large suction dressing covering your incision. This will help pull any excess drainage from the wound and allow your incision to heal properly. You may shower with this if you can keep the unit outside of the shower. If any bleeding or leakage is noted please call your doctor's office. This will remain on your incision for 7 days and then should be removed. This can be done yourself or by the home nursing staff if applicable. The entire unit is disposable once removed. Once removed, keep incision clean and dry. If redness or drainage is noted, please call your surgeon. FOLLOW UP VISIT: If appointment is not already scheduled: Please call [facility] to make a follow-up appointment for 2 weeks after your surgery at .
== END 2017-10-05 11:44 | disposition home health service (06) | DRG 470 ==
LOC: C.ACU 06:03 → C.3E 09:00 → ENRESERV 12:30
PROVIDERS: ADMIT Orthopaedic Surgery; ATTEND Orthopaedic Surgery
PROC: 0SRD0J9 Replacement of Left Knee Joint with Synthetic Substitute, Cemented, Open Approach (ICD-10-PCS; principal; 2017-10-02 09:00)
DX: M17.12 Unilateral primary osteoarthritis, left knee (principal); E66.01 Morbid (severe) obesity due to excess calories; Z68.41 Body mass index [BMI] 40.0-44.9, adult; D69.6 Thrombocytopenia, unspecified; I10 Essential (primary) hypertension; I48.91 Unspecified atrial fibrillation; E07.9 Disorder of thyroid, unspecified; E78.5 Hyperlipidemia, unspecified; J45.909 Unspecified asthma, uncomplicated; Z79.82 Long term (current) use of aspirin; Z79.899 Other long term (current) drug therapy; Z85.3 Personal history of malignant neoplasm of breast; Z96.651 Presence of right artificial knee joint; Z88.1 Allergy status to other antibiotic agents; Z88.2 Allergy status to sulfonamides; Z88.8 Allergy status to other drugs, medicaments and biological substances

== ENCOUNTER 2017-10-10 22:11 | Inpatient (IN) | payer OTHER ==
[~2017-10-10] VITALS: Ht 165.1 cm; Wt 119.0 kg
[~2017-10-10 22:11] MED LIST changes: -ACET-1256 PO; +ACET-24 PO; -ACETAMINOPHEN 500 MG TAB PO SCH; +ASPI-320 PO; -ASPI81TA28 PO; +ATV/1 PO; -CEFAZOLIN 2000MG IV PUSH 15 ML IV SCH; +CLC100 PO; -DEXAMETHASONE 4 MG TAB PO SCH; -FAMOTIDINE 20 MG TAB PO SCH; -GABAPENTIN 300 MG CAP PO SCH; -LACTATED RINGER'S 1000ML 1,000 ML IV SCH; -LACTATED RINGER'S 1000ML 500 ML IV SCH; -METOCLOPRAMIDE HCL 10 MG TAB PO SCH; +ONDA-170 PO; -ROPIVACAINE 5MG/ML 30 ML 150 MG, BUPIVACAINE 0.5% MPF INJ 30 ML, EpINEphrine HCL INJ 0.... INFIL SCH; +RXC5 PO
[2017-10-11 01:40] VITALS: BP 181/89; PULSE 86; TEMP 36.9; Ht 165.1 cm; Wt 119.0 kg
[2017-10-11] MEDS ORDERED: POLYETHYLENE (MIRALAX) 17 GM PACK PO PRN (03:30)
[2017-10-11] MEDS ORDERED: ALUMINUM/MAGNESIUM/SIMETH (MAALOX MAX) 30 ML UDC PO PRN (03:30)
[2017-10-11] MEDS ORDERED: MAGNESIUM HYDROXIDE SUSP 30 ML UDC PO PRN (03:30)
--- NOTE | 2017-10-11 03:39 | History and Physical ---
History & Physical Date & Time of Service: Oct 11, 2017 at 03:38 Chief Complaint: Symptomatic Anemia, Possible Gi Bleed Primary Care Physician: Ronnie Claudio D.O. History of Present Illness Source: patient, hospital records 77yo F h/o s/p Left Knee replacement HTN, Hypothyroidism, Asthma, GERD, Breast Cancer transfer from [facility] for Anemia and suspected GI bleed. Patient went to [place] ED today for SOB and Cough x 1 week which did not respond adequately to asthma inhaler medication. According to record she arrived to ED afebrile, 97 saturation, RR 20. CT Chest was negative for PE , negative for Pneumonia per report. H/H was 7.5/22.5 . This was followed by positive heme occult stool which prompted the transfer to [facility]. She did receive transfusion before discharge. Patient also reports fall with injury the Knee yesterday which is s/p replacement on 10/02. She reports she had it evaluated yesterday in ED ( [place]) and was told Xray looked appropriate. Patient denies gross blood in stool or dark stools. She denies fevers, chills, abdominal pain. She still reports some SOB, but denies chest pain, palpitation. She reports 2-3/10 pain in the L knee s/p replacement Past Medical/Surgical History Medical Problems: (1) Anemia Surgical Problems: (1) S/P TKR (total knee replacement) Hypertension Hpopthyroidism Asthma Osteoarthritis Depression HLD GERD H/o Breast Cancer Family History Cancer Heart Disease Social History Smoking Status: Never Smoker Alcohol Use: none Drug Use: none Marital Status: Housing status: lives with significant other Occupational Status: retired Allergies Coded Allergies: Celecoxib (Verified Allergy, Unknown, ELEVATED LIVER ENYZMES, 10/02/17) Oxytetracycline (Verified Allergy, Unknown, ORAL MED-RASH, 10/02/17) Polymyxin B (Verified Allergy, Unknown, ORAL MED-RASH, 10/02/17) Sulfamethoxazole w/Trimethoprim (Verified Allergy, Unknown, VOMITING, 10/02) Tramadol (Verified Allergy, Unknown, UNABLE TO SLEEP, 10/02/17) Home Medications Scheduled Acetaminophen (Sb Non-Aspirin Extra Stre), 1,000 MG PO Q8H Albuterol Sulfate (Proair Respiclick), 2 PUFFS INH PRN Aloe Vera (Topical) (Aloe Vera), 1 TAB PO HS Anastrozole (Arimidex), 1 MG PO QPM Aspirin (Aspirin EC Low Dose), 81 MG PO BID Bioflavonoid Products (Nelia-C), 1 TAB PO QPM Biotin (Biotin 5000), 5 MG PO QAM Buspirone Hcl (Buspar), 5 MG PO BID Calcium Carbonate-Vitamin D (Calcium + D), 1 TAB PO QAM Carvedilol (Coreg), 25 MG PO BID Cholecalciferol (Vitamin D3), 1 TAB PO QPM Coenzyme Q10 (Ubidecarenone) (Coq10), 150 MG PO QAM Docusate Sodium (Docusate Sodium), 100 MG PO BID Flaxseed (Linseed) (Flax Seed Oil), 1 TAB PO QPM Hydrochlorothiazide (Hydrochlorothiazide), 0.5 TAB PO QAM Lactobacillus (Probiotic Acidophilus), 1 TAB PO QAM Levothyroxine Sodium (Levothyroxine Sodium), 1 TAB PO QAM Losartan Potassium (Cozaar), 100 MG PO QAM Mometasone Furoate (Inhalation (Asmanex Hfa), 2 PUFFS INH QPM Ocuvite Preservision (Ocuvite Preservision), 1 TAB PO HS Omeprazole (Prilosec), 40 MG PO QAM Pravastatin (Pravachol ), 10 MG PO HS [Bee Pollen], 1 TAB PO QAM [Beet Root], 500 MG PO BID [Cellular Antioxidant], 1 TAB PO QPM [Garlic Parsley], 3 TAB PO BID [Zinc], 50 MG PO QPM Scheduled PRN Amoxicillin (Amoxil), 2,000 MG PO UD PRN for RN Lorazepam (Ativan), 1 MG PO TID PRN for Anxiety Ondansetron Hcl (Zofran), 8 MG PO Q8 PRN for Nausea Oxycodone HCl (Oxycodone HCl), 5-10 MG PO Q4H PRN for Pain Review of Systems Constitutional: No fever, No chills, No weakness Respiratory: + cough, + shortness of breath, No sputum, No wheezing Cardiovascular: No chest pain, No edema, No palpitations Abdomen: No pain, No nausea, No vomiting Musculoskeletal: + problem reported (Left Knee pain (s/p replacemnt, injury from fall)) Genitourinary - Female: No dysuria, No urinary frequency, No urinary urgency, No hematuria Psychiatric: + depression symptoms Hematologic / Lymphatic: + abnormal bleeding/bruising (positive heme occult ( outside hosp)) Integumentary: No rash, No itch Physical Exam Vital Signs Date Time Temp Pulse Resp B/P (MAP) Pulse Ox O2 Delivery O2 Flow Rate FiO2 10/11/17 01:40 36.9 86 12 181/89 Room Air GENERAL: alert, well appearing, no distress EYE EXAM: PERRL and EOM's grossly intact OROPHARYNX: no exudate, no erythema, lips, buccal mucosa, and tongue normal and mucous membranes are moist NECK: supple, no nuchal rigidity, no adenopathy, non-tender LUNGS: Clear to auscultation. Normal chest wall mechanics HEART +systolic murmur S1 normal and S2 normal ABDOMEN: abdomen soft, non-tender, normo-active bowel sounds, no masses, no rebound or guarding. BACK: Back is symmetrical on inspection and there is no deformity SKIN: no rashes and no bruising UPPER EXTREMITIES: upper extremities are grossly normal. LOWER EXTREMITIES: LLE edema, scattered ecchymoses,surgical scar bandage in place, clean dry, NEURO EXAM: Normal sensorium, cranial nerves II-XII grossly intact, normal speech, Diagnostics Laboratory Results Results Past 24 Hours Test 10/11/17 03:19 10/11/17 03:30 Range/Units Impression Assessment and Plan 77yo F h/o s/p Left Knee replacement HTN, Hypothyroidism, Asthma, GERD, Breast Cancer transfer from [facility] for Anemia and suspected GI bleed. Anemia - VSS, possibly symptomatic given SOB - possibly secondary to gi bleed given positive heme occult from outside hospitals vs. post-operative blood loss and subsequent sustained Knee injury - H/H prior to arrival: 7.5/22.5 ( [place]) - s/p transfusion at [place], current h/h 9.1/26.6 - make NPO, repeat heme occult - Consult GI - Protonix 40 BID IV - check H/H q6H - IV NS - Blood type and cross, hold 2 units prbc SOB, cough - ddx: 2/2 History of Asthma, SOB may also be manifestation of Anemia - based on previous workup in [place], CT ruled out pneumonia, PE - f/u CXR report - Albuterol inh HTN - BP elevated on arrival -c/w Losartan, Coreg Hyponatremia - possible low volume related - start IV NS as above HLD c/w pravastatin 10 mg daily Depression c/w Buspirone Hypothyroidism -c/w synthroid GERD - Protonix as above Breast Cancer - stable - c/w Arimidex DVT PPx -chemical ppx contraindicated due to potential bleed - SCDs Code status: Full Resident Physician Supervision Note: I was present with Dr. Pacheco during the history and exam. I discussed the case with the resident and agree with the findings and plan as documented in the note. Any exceptions or clarifications are listed here: 77 y/o F Hx HTN, Hypothyroidism, Asthma, GERD, Breast Cancer transfer from [facility] for Anemia and suspected GI bleed. She had presented to the hospital as she thought her recently replaced knee was dislocated. This was not the case, however, labs revealed an Hb of 7.5 - she is only taking ASA for prophylaxis - and she was guiac (+). She denies SOB, CP , lightheadedness. OE AAO x 3 S1,2 R CTAB NT, ND No CCE P: Trend Hb - transfused one unit prior to arrival GI will be consulted and ASA held She does report a clean colonoscopy this yr so that a workup would likely commence with an EGD Cont Pravastatin, Buspar, Synthroid Documented By: Nick Alvarez Advanced Directives Existing Living Will: Yes Existing Power of Biomedical Scientist: Yes Resuscitation Status VTE Prophylaxis Will order VTE Prophylaxis: Yes Reason for no VTE drug order: Contraindicated Note Total Time: Critical Care 30 - 74 minutes Resident Tracking Resident Involvement: Resident Care Provided Care Provided: Adult Hospital Medicine
[2017-10-11] MEDS ORDERED: MoRPHine SULFATE 4 MG/ML 1 ML CARP\\VIAL IV PRN (03:45)
[2017-10-11 04:15] LABS: BASO % 0.2 %; BASO ABS # 0.01 K/uL (0-0.2); EOS % 0.9 %; EOS ABS # 0.05 K/uL (0-0.5); HEMATOCRIT 26.6 % (37-47); HEMOGLOBIN 9.1 g/dL (12.0-16.0); IG# 0.07 K/uL (0.00-0.02); LYMPH ABS # 1.02 K/uL (1.2-3.4); MEAN CELL VOLUME 88.7 fL (80-100); MEAN CORPUSCULAR HEMOGLOBIN 30.3 pg (25-34); MEAN PLATELET VOLUME 8.6 fL (7.4-10.4); MONO % 18.2 %; MONO ABS # 1.03 K/uL (0.11-0.59); NEUT % 61.5 %; NEUT ABS # 3.49 K/uL (1.4-6.5); PLATELET COUNT 153 K/uL (130-400); RED CELL DISTRIBUTION WIDTH CV 13.6 % (11.5-14.5); WHITE BLOOD COUNT 5.67 K/uL (4.8-10.8)
[2017-10-11 04:20] LABS: MEAN CORPUSCULAR HGB CONC 34.2 g/dl (32-36)
[2017-10-11 04:32] LABS: PTT PATIENT 25.9 SECONDS (21.0-31.0)
[2017-10-11 04:47] LABS: ALBUMIN 2.7 gm/dl (3.4-5.0); CALCIUM 8.1 mg/dl (8.5-10.1); CREATININE 0.72 mg/dl (0.60-1.20); POTASSIUM 3.8 mmol/L (3.5-5.1); TOTAL PROTEIN 6.6 gm/dl (6.4-8.2)
[2017-10-11] MEDS ORDERED: SODIUM CHLORIDE 0.9% 1000ML 1,000 ML IV SCH (05:45)
[2017-10-11] MEDS ORDERED: NURSING VERBAL MED ORDER ONE (06:15)
[2017-10-11] MEDS: LEVOTHYROXINE 100 MCG TAB PO SCH (06:27)
[2017-10-11] MEDS ORDERED: LORAZEPAM 0.5 MG TAB PO ONE (06:30)
--- NOTE | 2017-10-11 07:23 | Family Medicine Progress Note ---
Progress Note Date of Service Oct 11, 2017. Subjective Pt evaluation today including: conversation w/ patient, conversation w/ family , physical exam, chart review, lab review, review of studies, conversation w/ contaminated land consultant, review of inpatient medication list Patient feels that her breathing has improved since the transfusion she has received in [place]. She denies other symptoms of anemia - no dizziness, lightheadedness, CP, palpitations, vision changes. She is feeling a lot of anxiety and requesting Ativan. She has ongoing right knee pain and has trouble with ambulation. She states her legs are swollen bilaterally at baseline and has not noticed any recent changes with this. She has right knee pain and limited ROM and states use of Tylenol and oxycodone prescribed post surgery for management. She denies use of NSAIDs and states compliance with aspirin BID. She has no fevers/chills, abdominal pain, or rashes. She is tolerating diet without nausea or vomiting, and voiding and stooling appropriately. ROS is unremarkable except as noted above. Objective Vital Signs Date Time Temp Pulse Resp B/P (MAP) Pulse Ox O2 Delivery O2 Flow Rate FiO2 10/11/17 15:58 36.6 84 18 177/92 (120) 99 Room Air 10/11/17 09:00 Room Air 10/11/17 07:56 36.5 83 17 155/87 (109) 97 Room Air 10/11/17 01:40 36.9 86 12 181/89 Room Air Physical Exam General Appearance: WD/WN, no apparent distress, + obese Eyes: normal inspection ENT: hearing grossly normal Neck: supple Respiratory/Chest: normal breath sounds, no respiratory distress, no accessory muscle use Cardiovascular: regular rate, rhythm, + systolic murmur (/) Abdomen: normal bowel sounds, non tender, soft Extremities: no calf tenderness, + swelling (bilaterally, worse on left post surgery) Neurologic/Psychiatric: alert, normal mood/affect Skin: warm/dry, no rash, + pertinent finding (ecchymosis over left leg, not recently worsened per patient) Laboratory Results Results Past 24 Hours Test 10/11/17 03:30 10/11/17 03:48 10/11/17 09:18 10/11/17 10:59 Range/Units White Blood Count 5.67 4.8-10.8 K/uL Red Blood Count 3.00 4.2-5.4 M/uL Hemoglobin 9.1 8.9 12.0-16.0 g/dL Hematocrit 26.6 25.9 37-47 % Mean Corpuscular Volume 88.7 80-100 fL Mean Corpuscular Hemoglobin 30.3 25-34 pg Mean Corpuscular Hemoglobin Concent 34.2 32-36 g/dl Platelet Count 153 130-400 K/uL Mean Platelet Volume 8.6 7.4-10.4 fL Neutrophils (%) (Auto) 61.5 % Lymphocytes (%) (Auto) 18.0 % Monocytes (%) (Auto) 18.2 % Eosinophils (%) (Auto) 0.9 % Basophils (%) (Auto) 0.2 % Neutrophils # (Auto) 3.49 1.4-6.5 K/uL Lymphocytes # (Auto) 1.02 1.2-3.4 K/uL Monocytes # (Auto) 1.03 0.11-0.59 K/uL Eosinophils # (Auto) 0.05 0-0.5 K/uL Basophils # (Auto) 0.01 0-0.2 K/uL RDW Standard Deviation 44.0 36.4-46.3 fL RDW Coefficient of Variation 13.6 11.5-14.5 % Immature Granulocyte % (Auto) 1.2 % Immature Granulocyte # (Auto) 0.07 0.00-0.02 K/uL Prothrombin Time 10.0 9.0-12.0 SECONDS Prothromb Time International Ratio 1.0 0.9-1.1 Activated Partial Thromboplast Time 25.9 21.0-31.0 SECONDS Partial Thromboplastin Ratio 1.0 Sodium Level 127 136-145 mmol/L Potassium Level 3.8 3.5-5.1 mmol/L Chloride Level 96 98-107 mmol/L Carbon Dioxide Level 25 21-32 mmol/L Anion Gap 6.0 3-11 mmol/L Blood Urea Nitrogen 10 7-18 mg/dl Creatinine 0.72 0.60-1.20 mg/dl Est Creatinine Clear Calc Drug Dose 143.6 ml/min Estimated GFR () 93.6 Estimated GFR (Non- 80.8 BUN/Creatinine Ratio 13.6 10-20 Random Glucose 90 70-99 mg/dl Calcium Level 8.1 8.5-10.1 mg/dl Total Bilirubin 0.9 0.2-1 mg/dl Aspartate Amino Transf (AST/SGOT) 38 15-37 U/L Alanine Aminotransferase (ALT/SGPT) 25 12-78 U/L Alkaline Phosphatase 56 45-117 U/L Total Protein 6.6 6.4-8.2 gm/dl Albumin 2.7 3.4-5.0 gm/dl Globulin 3.9 2.5-4.0 gm/dl Albumin/Globulin Ratio 0.7 0.9-2 Absolute Reticulocyte Count 0.07 0.02-0.10 10^6/uL Percent Reticulocyte Count 2.4 0.5-2.0 % Iron Level 28 35-150 mcg/dl Total Iron Binding Capacity 211 250-450 mcg/dl Transferrin 164 200-360 mg/dl Transferrin % Saturation 12 15-50 % Ferritin 206.4 8.0-388.0 ng/ml Vitamin B12 Level 1911 211-911 pg/mL Folate 9.86 >5.38 ng/mL Test 10/11/17 15:37 Range/Units Hemoglobin 9.2 12.0-16.0 g/dL Hematocrit 26.6 37-47 % Assessment and Plan 77yo F with pMHx PMHx of HTN, hypothyroidism, asthma, GERD, breast cancer, and recent left knee replacement (10/02/17) transferred from [facility] for symptomatic anemia and suspected GI bleeding. Anemia with suspected GI bleed given +FOBT - s/p transfusion 2 units pRBC at outside hospital. Gastroenterology consulted - Type and crossed, 2 units on hold - Aspirin held - Continue IV pantoprazole 40 BID - Check H/H q6H. Also checking iron profile + B12 and folic levels - Per GI, plan for eventual EGD. SOB, cough - ddx: Asthma or manifestation of anemia, Pneumonia and DVT/PE ruled out by CT and Doppler at outside hospital. CHF unlikely given CXR reports cardiomegaly with no acute cardiopulmonary abnormality. - Oxygen as needed to maintain sats if <92% - Continue home inhalers PRN Recent left total knee replacement - Orthopedics, Dr. Santiago consulted - Pain management: acetaminophen and morphine - PT/OT as tolerated Hyponatremia - Na 127 on admission - Placed on fluid restriction 1.8L - Trend BMP HTN/HLD - Continue carvedilol and losartan. HCTz held due to hyponatremia - Continue pravastatin Depression/Anxiety - Continue buspirone Hypothyroidism - Continue levothyroxine GERD - Pantoprazole, as above Breast Cancer - stable - Continue Arimidex VTE ppx - SCDs - Chemical ppx contraindicated due to suspected GI bleed Code status: Full Resident Physician Supervision Note: I was present with Dr. Carnes during the history and exam. I discussed the case with the resident and agree with the findings and plan as documented in the note. Appreciate GI input; will advance diet and monitor for recurrence of bleeding. Her chest xray is not consistent with failure, and she has no dyspnea when lying supine. The patient reports that her LE look about baseline; upon exam, her LLE is ecchymotic with post-surgical swelling; her RLE is obese but I do not appreciate pitting. While there is no evidence of overt failure (I suspect her BNP is chronically elevated), will need to be careful with hydration. Documented By: Dino Amador Continued [facility] stay due to: ambulation difficulties Discharge planning: rehab hospital, detention facility Resident Tracking Resident Involvement: Resident Care Provided Care Provided: Adult Hospital Medicine
[2017-10-11 07:56] VITALS: BP 155/87; PULSE 83; TEMP 36.5; O2SAT 97
[2017-10-11] MEDS ORDERED: HYDROCHLOROTHIAZIDE 25 MG TAB PO SCH (08:00)
--- NOTE | 2017-10-11 08:52 | DIAGNOSTIC IMAGING REPORT ---
SINGLE VIEW CHEST CLINICAL HISTORY: Cough and dyspnea. FINDINGS: An AP, portable, upright chest radiograph is compared to study dated 09/07/2017. The examination is degraded by portable technique and patient rotation. The heart is enlarged. The pulmonary vasculature is noncongested. Chronic interstitial thickening is similar to previous. Mild bibasilar atelectasis is noted. There is no airspace consolidation typical for pneumonia or large pleural effusion. No pneumothorax is seen. The skeletal structures are osteopenic. The bony thorax is grossly intact. Arthritic change is noted in the shoulders and thoracic spine. IMPRESSION: Cardiomegaly with no acute cardiopulmonary abnormality. Electronically signed by: David Edouard M.D. 10/11/2017 7:19 AM Dictated Date/Time: 10/11/2017 7:17 AM
[2017-10-11] MEDS: PANTOprazole INJ 40 MG in SYRINGE 0 ML IV SCH ×2 (09:21→20:51)
[2017-10-11] MEDS: LOSARTAN POTASSIUM 50 MG TAB PO SCH (09:25)
[2017-10-11] MEDS: CARVEDILOL 25 MG TAB PO SCH ×2 (09:27→20:50)
[2017-10-11 09:39] LABS: HEMATOCRIT 25.9 % (37-47); HEMOGLOBIN 8.9 g/dL (12.0-16.0)
[2017-10-11 11:38] LABS: RETIC COUNT % 2.4 % (0.5-2.0)
--- NOTE | 2017-10-11 12:49 | Gastrointestinal Consultation ---
Gastrointestinal Consultation Date of Consultation: Oct 11, 2017 Attending Physician: Lisa Montiel Consulting Physician: Shantelle Wynn Reason for Consultation: Possible GI bleed History of Present Illness Patient is a 77 year old female w PMHx of HTN, hypothyroidism, asthma, GERD, breast ca, Sjogrens, autoimmune thrombocytopenia, recent L knee replacement who was transferred from [facility] last night for anemia and suspected GI bleeding. She had gone to [place] ED for a fall 2 days prior. Said was trying to move from couch and felt L leg spasm up to her L hip/groin area, lost her balance and fell. She returned to ED yesterday for SOB symptoms. Denies any light headedness, dizziness, CP. She admits to having cough x 1 week w/o good response to asthma inhalers. She had been afebrile. Upon evaluation at [place], she was noted to be anemic w H/H of 01/06 (baseline last month was ). She had CT chest which showed no PE. She did test positive for stool occult blood. She was given 1U PRBC transfusion and transferred to [facility] for further care. Pt reports having colonoscopy 06/[address] Riggins in [place] and was found to have diverticulosis. She never had EGD before. She denies any abd pain, n/v, or changes in BM habits recently though at baseline has issues w constipation at times and been managing it with prune juice mixed w butter, grains, oatmeals. She denies any black or tarry stools, rectal bleeding. She does take some vitamin supplements, but not on iron. Upon exam, abd is benign, non tender or distended. She has bruising on L leg area likely from her post op state. She had been on baby ASA, no other blood thinners. Denies any uses of NSAIDs. Past Medical/Surgical History Past Medical History: See above Past Surgical History: L TKR Appendectomy Cholecystectomy Tubal ligation Social History Smoking Status: Never Smoker Drug Use: none Marital Status: Occupation Status: retired Allergies Coded Allergies: Celecoxib (Verified Allergy, Unknown, ELEVATED LIVER ENYZMES, 10/02/17) Oxytetracycline (Verified Allergy, Unknown, ORAL MED-RASH, 10/02/17) Polymyxin B (Verified Allergy, Unknown, ORAL MED-RASH, 10/02/17) Sulfamethoxazole w/Trimethoprim (Verified Allergy, Unknown, VOMITING, 10/02) Tramadol (Verified Allergy, Unknown, UNABLE TO SLEEP, 10/02/17) Current Medications Home Meds and Scripts Medications Dose Route/Sig Max Daily Dose Days Date Category Dose Instructions Ativan (Lorazepam) 1 Mg Tab 1 Mg PO TID PRN 10/05/17 Rx Zofran (Ondansetron HCl) 8 Mg Tab 8 Mg PO Q8 PRN 10/03/17 Rx Docusate Sodium 100 Mg Cap 100 Mg PO BID 10 10/03/17 Rx Oxycodone HCl 5 Mg Tab 5-10 Mg PO Q4H PRN 10/03/17 Rx Sb Non-Aspirin Extra Stre (Acetaminophen) 500 Mg Tab 1,000 Mg PO Q8H 10/03/17 Rx Aspirin EC Low Dose (Aspirin) 81 Mg Ectab 81 Mg PO BID 30 10/03/17 Rx Vitamin D3 (Cholecalciferol) 2,000 Unit Tab 1 Tab PO QPM 90 09/07/17 Reported [Zinc] 50 Mg PO QPM 09/07/17 Reported [Bee Pollen] 1 Tab PO QAM 09/07/17 Reported [Beet Root] 500 Mg PO BID 09/07/17 Reported [Cellular Antioxidant] 1 Tab PO QPM 09/07/17 Reported Coq10 (Coenzyme Q10 (Ubidecarenone)) 150 Mg Cap 150 Mg PO QAM 09/07/17 Reported [Garlic Parsley] 3 Tab PO BID 09/07/17 Reported Aloe Vera (Aloe Vera (Topical)) 1 Gel Gel 1 Tab PO HS 09/07/17 Reported Ocuvite Preservision (Multivitamins/Minerals) 1 Tab Tab 1 Tab PO HS 09/07/17 Reported Probiotic Acidophilus (Lactobacillus) 1 Cap Cap 1 Tab PO QAM 09/07/17 Reported Biotin 5000 (Biotin) 5 Mg Cap 5 Mg PO QAM 09/07/17 Reported Flax Seed Oil (Flaxseed (Linseed)) 1 Cap Cap 1 Tab PO QPM 09/07/17 Reported Proair Respiclick (Albuterol Sulfate) 108 Mcg/Act Aer 2 Puffs INH PRN 09/07/17 Reported Asmanex Hfa (Mometasone Furoate (Inhalation) 200 Mcg/Act Aer 2 Puffs INH QPM 09/07/17 Reported Nelia-C (Bioflavonoid Products) 1 Tab Tab 1 Tab PO QPM 09/07/17 Reported Calcium + D (Calcium Carbonate-Vitamin D) 1 Tab Tab 1 Tab PO QAM 09/07/17 Reported Buspar (Buspirone Hcl) 15 Mg Tab 5 Mg PO BID 09/07/17 Reported Coreg (Carvedilol) 25 Mg Tab 25 Mg PO BID 09/07/17 Reported Pravachol (Pravastatin Sodium) 20 Mg Tab 10 Mg PO HS 09/07/17 Reported Amoxil (Amoxicillin) 500 Mg Cap 2,000 Mg PO UD PRN 09/07/17 Reported BEFORE DENTAL Hydrochlorothiazide 12.5 Mg Tab 0.5 Tab PO QAM 90 09/07/17 Reported Arimidex (Anastrozole) 1 Mg Tab 1 Mg PO QPM 09/07/17 Reported Cozaar (Losartan Potassium) 100 Mg Tab 100 Mg PO QAM 09/07/17 Reported Levothyroxine Sodium 100 Mcg Tab 1 Tab PO QAM 90 09/07/17 Reported Prilosec (Omeprazole) 20 Mg Capcr 40 Mg PO QAM 09/07/17 Reported Review of Systems Constitutional: No fever, No chills Respiratory: + cough, + shortness of breath Cardiac: No chest pain Abdomen: + see HPI, + GI bleeding, No pain, No nausea, No vomiting Physical Exam Date Time Temp Pulse Resp B/P (MAP) Pulse Ox O2 Delivery O2 Flow Rate FiO2 10/11/17 07:56 36.5 83 17 155/87 (109) 97 Room Air 10/11/17 01:40 36.9 86 12 181/89 Room Air General Appearance: WD/WN, no apparent distress, + obese Eyes: normal inspection, PERRL, EOMI Neck: supple, no JVD, trachea midline Respiratory/Chest: normal breath sounds, no respiratory distress, no accessory muscle use Cardiovascular: regular rate, rhythm, no gallop, no murmur Abdomen: normal bowel sounds, non tender, soft Extremities: no calf tenderness, + swelling (L leg) Neurologic/Psych: alert, normal mood/affect, oriented x 3 Skin: normal color, no jaundice, no rash, + pertinent finding (bruising of L leg ) Laboratory Results Last 24 Hours Test 10/11/17 03:30 10/11/17 03:48 10/11/17 09:18 10/11/17 10:59 White Blood Count 5.67 K/uL Red Blood Count 3.00 M/uL Hemoglobin 9.1 g/dL 8.9 g/dL Hematocrit 26.6 % 25.9 % Mean Corpuscular Volume 88.7 fL Mean Corpuscular Hemoglobin 30.3 pg Mean Corpuscular Hemoglobin Concent 34.2 g/dl Platelet Count 153 K/uL Mean Platelet Volume 8.6 fL Neutrophils (%) (Auto) 61.5 % Lymphocytes (%) (Auto) 18.0 % Monocytes (%) (Auto) 18.2 % Eosinophils (%) (Auto) 0.9 % Basophils (%) (Auto) 0.2 % Neutrophils # (Auto) 3.49 K/uL Lymphocytes # (Auto) 1.02 K/uL Monocytes # (Auto) 1.03 K/uL Eosinophils # (Auto) 0.05 K/uL Basophils # (Auto) 0.01 K/uL RDW Standard Deviation 44.0 fL RDW Coefficient of Variation 13.6 % Immature Granulocyte % (Auto) 1.2 % Immature Granulocyte # (Auto) 0.07 K/uL Prothrombin Time 10.0 SECONDS Prothromb Time International Ratio 1.0 Activated Partial Thromboplast Time 25.9 SECONDS Partial Thromboplastin Ratio 1.0 Sodium Level 127 mmol/L Potassium Level 3.8 mmol/L Chloride Level 96 mmol/L Carbon Dioxide Level 25 mmol/L Anion Gap 6.0 mmol/L Blood Urea Nitrogen 10 mg/dl Creatinine 0.72 mg/dl Est Creatinine Clear Calc Drug Dose 143.6 ml/min Estimated GFR () 93.6 Estimated GFR (Non- 80.8 BUN/Creatinine Ratio 13.6 Random Glucose 90 mg/dl Calcium Level 8.1 mg/dl Total Bilirubin 0.9 mg/dl Aspartate Amino Transf (AST/SGOT) 38 U/L Alanine Aminotransferase (ALT/SGPT) 25 U/L Alkaline Phosphatase 56 U/L Total Protein 6.6 gm/dl Albumin 2.7 gm/dl Globulin 3.9 gm/dl Albumin/Globulin Ratio 0.7 Absolute Reticulocyte Count 0.07 10^6/uL Percent Reticulocyte Count 2.4 % Iron Level 28 mcg/dl Total Iron Binding Capacity 211 mcg/dl Transferrin 164 mg/dl Transferrin % Saturation 12 % Ferritin 206.4 ng/ml Vitamin B12 Level 1911 pg/mL Folate 9.86 ng/mL Impression Patient is a 77 year old female transferred from [place] yesterday for symptomatic anemia, heme positive stool w/o overt signs of GI bleeding. Never had EGD eval but did recently have colonoscopy by Dr. Riggins in June - noted to have diverticulosis. She had recent L total knee replacement, and did have thrombocytopenia then evaluated by Heme/Onc who suspect it to be related to autoimmune thrombocytopenia. Plt normal now. No large ecchymosis except on L leg area. Abd exam currently benign. Plan - Will obtain iron studies, check B12, FA - Check reticulocyte ct - Continue Protonix 40mg BID for stress ulcer prophylaxis - Ok to start AHA, 2g Na diet w FL restriction 1.8L given hyponatremia - Noted elevated BNP and cardiomegaly, on exam has lower leg swelling, also coughing. Would recommend medically optimizing diuretics if tolerated. - No urgent indication for repeat endoscopies at this time though. Plan to monitor blood ct and if she has huge drop in blood ct & GI s/s of bleeding in next few days then will re-consider at least performing EGD to r/o bleeding ulcer. Attgg add: I interviewed and examined pt, reviewed chart and labs. Pt with anemia, but no clear evidence of GI bleed. Plan for eventual EGD.
[2017-10-11] MEDS: ONDANSETRON INJ 2 MG/ML 2 ML VIAL IV PRN (14:22)
[2017-10-11] MEDS ORDERED: LORAZEPAM 0.5 MG TAB PO PRN (14:45)
[2017-10-11 15:58] VITALS: BP 177/92; PULSE 84; TEMP 36.6; O2SAT 99
[2017-10-11 16:10] LABS: HEMATOCRIT 26.6 % (37-47); HEMOGLOBIN 9.2 g/dL (12.0-16.0)
--- NOTE | 2017-10-11 16:23 | CONSULTATION REPORT ---
DATE OF CONSULTATION: 10/11/2017 CHIEF COMPLAINT: Left knee pain and disability. HISTORY OF PRESENT ILLNESS: Ms. Luna is a 77-year-old female approximately 10 days status post left TKA by Dr. Santiago. She was at home since her discharge. Apparently on 10/09/2017, she had a fall. Per the patient and her family, she was ambulatory after the fall. She was seen in [place] ED with complaints of left knee pain and also shortness of breath. She was also found to be anemic with hemoglobin of 7.7. They did do an ultrasound and a CAT scan to rule out DVT and/or PE. She was transfused 2 units of packed red cells. She was then referred to [facility] for further definitive treatment. Currently, she is lying in bed. Per the patient and her family, the swelling and ecchymosis present in her left lower extremity is pretty consistent with what it has been since her surgery. She is unable to do a straight leg raise or extend her knee from a slightly flexed position but again this has been pretty constant since her surgery. Her wound is intact with gisella with minimal pinpoint bloody drainage. She is tender to palpate along the medial retinaculum, but due to her obese leg, it is difficult to determine if there may be a defect in the retinaculum. X-rays per the patient and her family, x-rays at [facility] were negative for acute fracture or abnormality. ASSESSMENT: Left knee pain status post recent fall 10 days status post a left total knee arthroplasty. PLAN: Above discussed with the patient and her family. Will order a knee immobilizer to assist with her ambulation while she is out of bed. She can sit bedside in a chair and to allow her to need of flexed as comfortable. We will order some physical therapy. We could consider imaging but an MRI may be indeterminate due to the metal from her knee replacement. We possibly could consider an ultrasound to see if she has a defect in the quad/retinacular region. We could consider a bit of rehab to see how she functions. Will discuss with Dr. Ibanez and/or Dr. Santiago and proceed as indicated. MIRELA
[2017-10-11] MEDS: ALBUTEROL HFA INHALER 8.5 GM INH PRN (19:05)
[2017-10-11] MEDS: MOMETASONE FUROATE 14 PUFF/1 INHALER INH SCH (20:50)
[2017-10-11] MEDS: PRAVASTATIN SOD 20 MG TAB PO SCH (20:52)
[2017-10-11] MEDS: ANASTROZOLE 1 MG TAB PO SCH (20:53)
[2017-10-11 21:50] LABS: HEMATOCRIT 26.8 % (37-47); HEMOGLOBIN 9.4 g/dL (12.0-16.0)
[2017-10-11] MEDS: MoRPHine SULFATE 2 MG/ML CARP IV PRN (22:16)
[2017-10-11 23:44] VITALS: BP 159/79; PULSE 79; TEMP 36.9; O2SAT 96
[2017-10-12] MEDS: MoRPHine SULFATE 2 MG/ML CARP IV PRN ×5 (02:56→22:52)
[2017-10-12 03:46] LABS: BASO % 0.3 %; BASO ABS # 0.02 K/uL (0-0.2); EOS ABS # 0.06 K/uL (0-0.5); HEMOGLOBIN 8.5 g/dL (12.0-16.0); IG# 0.05 K/uL (0.00-0.02); LYMPH % 14.4 %; MEAN CORPUSCULAR HEMOGLOBIN 30.2 pg (25-34); MEAN PLATELET VOLUME 8.4 fL (7.4-10.4); MONO % 13.1 %; MONO ABS # 0.82 K/uL (0.11-0.59); NEUT % 70.4 %; NEUT ABS # 4.39 K/uL (1.4-6.5); PLATELET COUNT 150 K/uL (130-400); RED CELL DISTRIBUTION WIDTH CV 13.8 % (11.5-14.5); RED CELL DISTRIBUTION WIDTH SD 45.7 fL (36.4-46.3); WHITE BLOOD COUNT 6.24 K/uL (4.8-10.8)
[2017-10-12 04:21] LABS: ALBUMIN 2.5 gm/dl (3.4-5.0); CREATININE 0.72 mg/dl (0.60-1.20)
[2017-10-12] MEDS: LEVOTHYROXINE 100 MCG TAB PO SCH (06:27)
[2017-10-12 07:03] VITALS: BP 161/91; PULSE 79; TEMP 37; O2SAT 97
[2017-10-12] MEDS: ONDANSETRON INJ 2 MG/ML 2 ML VIAL IV PRN ×2 (07:17→13:01)
[2017-10-12] MEDS: PANTOprazole INJ 40 MG in SYRINGE 0 ML IV SCH ×2 (07:17→20:09)
--- NOTE | 2017-10-12 07:34 | Family Medicine Progress Note ---
Progress Note Date of Service Oct 12, 2017. Subjective Pt evaluation today including: conversation w/ patient, physical exam, chart review, lab review Pain: None PO Intake: NPO for EGD Voiding: no voiding problems Notes that she wants to go to [facility] for rehab; did not do well with home PT States that she has no nausea or vomiting; is NPO today but has appetite to eat Denies any new shortness of breath No concerns from overnight nursing staff. Constitutional: No fever, No chills, No sweats ENT: No hearing loss, No nasal symptoms, No sore throat, No tinnitus Respiratory: No cough, No sputum, No wheezing, No dyspnea at rest Cardiovascular: No chest pain, No orthopnea, No palpitations Abdomen: No pain, No nausea, No vomiting, No diarrhea, No constipation Musculoskeletal: + problem reported (left knee pain at surgical site; improving since surgery), No joint pain, No muscle pain Female : No dysuria, No urinary frequency Neurologic: No weakness, No numbness/tingling, No vertigo Skin: No rash, No new/changing skin lesions, No color change All Other Systems: Reviewed and Negative Medications Current Inpatient Medications Medications (Trade) Dose Ordered Sig/Lanette Route Start Time Stop Time Status Last Admin Dose Admin Acetaminophen (Tylenol Tab) 650 mg Q4H PRN PO 10/11/17 03:30 11/10/17 03:29 Al Hydrox/Mg Hydrox/Simethicone (Maalox Max Susp) 15 ml Q4H PRN PO 10/11/17 03:30 11/10/17 03:29 Magnesium Hydroxide (Milk Of Magnesia Susp) 30 ml Q6H PRN PO 10/11/17 03:30 11/10/17 03:29 Polyethylene (Miralax Powder Packet) 17 gm DAILY PRN PO 10/11/17 03:30 11/10/17 03:29 Ondansetron HCl (Zofran Inj) 4 mg Q6H PRN IV 10/11/17 03:30 11/10/17 03:29 10/12/17 13:01 4 MG Pantoprazole Sodium 40 mg/ Syringe 10 ml @ 5 mls/min DAILY@09,21 IV 10/11/17 09:00 11/10/17 08:59 10/12/17 07:17 5 MLS/MIN Anastrozole (Arimidex Tab) 1 mg QPM PO 10/11/17 21:00 11/10/17 20:59 10/11/17 20:53 1 MG Buspirone HCl (Buspar Tab) 5 mg BID PO 10/11/17 08:00 11/10/17 07:59 10/12/17 12:58 5 MG Carvedilol (Coreg Tab) 25 mg BID PO 10/11/17 08:00 11/10/17 07:59 10/12/17 12:59 25 MG Levothyroxine Sodium (Synthroid Tab) 100 mcg DAILYBB PO 10/11/17 06:30 11/10/17 06:29 10/11/17 06:27 100 MCG Losartan Potassium (coZAAR TAB) 100 mg QAM PO 10/11/17 08:00 11/10/17 07:59 10/12/17 12:58 100 MG Pravastatin Sodium (Pravachol Tab) 10 mg HS PO 10/11/17 21:00 11/10/17 20:59 10/11/17 20:52 10 MG Albuterol (Proair Hfa) 2 puffs Q6H PRN INH 10/11/17 03:45 11/10/17 03:44 10/11/17 19:05 2 PUFFS Hydrochlorothiazide (Hydrochlorothiazide Tab) 6.25 mg QAM PO 10/11/17 08:00 11/10/17 07:59 Future Hold 10/11/17 09:26 6.25 MG Morphine Sulfate (MoRPHine SULFATE INJ) 2 mg Q4H PRN IV 10/11/17 07:30 10/25/17 03:44 10/12/17 14:05 2 MG Lorazepam (Ativan Tab) 0.5 mg Q8H PRN PO 10/11/17 16:30 11/10/17 14:44 10/12/17 13:01 0.5 MG Mometasone Furoate (Asmanex 220MCG Inh) 2 puff QPM INH 10/11/17 21:00 11/10/17 20:59 10/11/17 20:50 2 PUFF Ferrous Sulfate (Feosol Tab) 325 mg BIDM PO 10/12/17 17:00 11/11/17 16:59 Objective Vital Signs Date Time Temp Pulse Resp B/P (MAP) Pulse Ox O2 Delivery O2 Flow Rate FiO2 10/12/17 12:56 36.8 81 16 171/86 (114) 95 Room Air 10/12/17 12:25 76 20 210/113 (145) 98 Nasal Cannula 10/12/17 12:10 78 20 177/83 (114) 97 Nasal Cannula 10/12/17 11:54 77 20 155/72 (99) 97 Nasal Cannula 10/12/17 11:14 210/113 (145) 10/12/17 11:11 36.6 81 20 185/12 (69) 98 Nasal Cannula 10/12/17 08:10 Room Air 10/12/17 07:03 37.0 79 20 161/91 (114) 97 Room Air 10/12/17 01:00 Room Air 10/11/17 23:44 36.9 79 20 159/79 (105) 96 Room Air 10/11/17 16:00 Room Air 10/11/17 15:58 36.6 84 18 177/92 (120) 99 Room Air Physical Exam General Appearance: WD/WN, no apparent distress Eyes: normal inspection, EOMI ENT: hearing grossly normal, pharynx normal Neck: supple, no adenopathy, no JVD Respiratory/Chest: lungs clear, no respiratory distress Cardiovascular: regular rate, rhythm, no gallop, no murmur Abdomen: normal bowel sounds, non tender, soft Extremities: + pertinent finding (left knee ecchymoses and bruising; swelling compared to left leg) Neurologic/Psychiatric: alert, normal mood/affect, oriented x 3 Skin: normal color, warm/dry, no rash Lymphatic: no adenopathy Laboratory Results Last 24 Hours Test 10/11/17 15:37 10/11/17 21:15 10/11/17 21:40 10/12/17 03:18 Hemoglobin 9.2 g/dL 9.4 g/dL 8.5 g/dL Hematocrit 26.6 % 26.8 % 25.0 % Stool Occult Blood NEGATIVE White Blood Count 6.24 K/uL Red Blood Count 2.81 M/uL Mean Corpuscular Volume 89.0 fL Mean Corpuscular Hemoglobin 30.2 pg Mean Corpuscular Hemoglobin Concent 34.0 g/dl Platelet Count 150 K/uL Mean Platelet Volume 8.4 fL Neutrophils (%) (Auto) 70.4 % Lymphocytes (%) (Auto) 14.4 % Monocytes (%) (Auto) 13.1 % Eosinophils (%) (Auto) 1.0 % Basophils (%) (Auto) 0.3 % Neutrophils # (Auto) 4.39 K/uL Lymphocytes # (Auto) 0.90 K/uL Monocytes # (Auto) 0.82 K/uL Eosinophils # (Auto) 0.06 K/uL Basophils # (Auto) 0.02 K/uL RDW Standard Deviation 45.7 fL RDW Coefficient of Variation 13.8 % Immature Granulocyte % (Auto) 0.8 % Immature Granulocyte # (Auto) 0.05 K/uL Red Blood Cell Morphology Unremarkable Sodium Level 130 mmol/L Potassium Level 4.0 mmol/L Chloride Level 99 mmol/L Carbon Dioxide Level 27 mmol/L Anion Gap 4.0 mmol/L Blood Urea Nitrogen 11 mg/dl Creatinine 0.72 mg/dl Est Creatinine Clear Calc Drug Dose 84.5 ml/min Estimated GFR () 93.6 Estimated GFR (Non- 80.8 BUN/Creatinine Ratio 14.9 Random Glucose 103 mg/dl Calcium Level 8.0 mg/dl Total Bilirubin 0.7 mg/dl Aspartate Amino Transf (AST/SGOT) 29 U/L Alanine Aminotransferase (ALT/SGPT) 22 U/L Alkaline Phosphatase 53 U/L Total Protein 6.0 gm/dl Albumin 2.5 gm/dl Globulin 3.5 gm/dl Albumin/Globulin Ratio 0.7 Assessment and Plan 77yo F who with ssx S/p left TKA on 10/02 who presents with SOB and was found to be anemic at 7.5 initially. Given 1 units at [facility] and transferred to [facility] for further management. Is being followed by GI for EGD to evaluate for source of bleed. Other pertinent history includes HTN, hypothyroidism, asthma, GERD, breast cancer Our plan for her is as follows: Anemia with suspected GI bleed given +FOBT - S/p 1 unit PRBC at [place] prior to arrival - Hb in the 9s; today slightly lower at 8.5 - ASA for DVT prophylaxis on hold - Continue Protonix BID - GI following: EGD shows no evidence of bleeding; recommendations appreciated. - Continue BID H&H - Will continue to monitor overnight and consider DC in the next 24 hours if stable Dyspnea - Symptomatic anemia, resolving - PE and PNA ruled-out - PRN duoneb therapy given hx of Asthma - Goal O2 > 94 Chronic Asthma - Stable - Duonebs given concurrent symptomatic anemia Recent left total knee replacement with post-op left knee pain - Orthopedics following; recs appreciated - PT/OT as tolerated Hyponatremia - 127 on admission; improved to 130 - Cont fluid restrictions - No mental status changes or seizures - Continue to trend Hypertension - Continue carvedilol and losartan. - Will re-start HCTZ due to uncontrolled BPs Hyperlipidemia - Continue pravastatin Depression/Anxiety - Continue buspirone Hypothyroidism - Continue levothyroxine GERD - Continue Pantoprazole Breast Cancer - Continue Arimidex DVT prophylaxis - SCDs - Hold ASA 81 mg BID due to low Hb - Encourage ambulation and PT Code Status - Level I Disposition - Med/Surg - Will try to have patient get inpatient PT when medically stable Continued [facility] stay due to: other (Hemoglobin monitoring) Discharge planning: uncertain Assessment/Plan Resident Physician Supervision Note: I was present with Dr. Pugh during the history and exam. I discussed the case with the resident and agree with the findings and plan as documented in the note. Any exceptions or clarifications are listed here
--- NOTE | 2017-10-12 08:43 | Clinical Documentation Query ---
Dr. UQILES CASSI : CLINICAL DOCUMENTATION QUERY Patient is a 77 year old female admitted for evaluation of anemia with suspected GI bleed. Initially anemic with Hg 7.5 g/dl. Patient transfused 2 units of PRBC's at [facility]. ASA now on hold, PPI orally, GI consultation, and being monitored with serial hematology. Please document the suspected acuity of this clinical diagnosis. In your clinical opinion is this patient being managed for: ( ) Acute blood loss anemia ( ) Not Agree ( ) Other explanation of clinical findings (Please Explain. If no explanation given, this would be considered a no response.) ( ) Unable to determine ( ) Need to Discuss (Please call CDS via extension or qliq. If no interaction occurs this is considered a no response.) The medical record reflects the following clinical findings, treatment, and risk factors. Clinical Indicators: As above Treatment: ASA now on hold, PPI orally, GI consultation, and being monitored with serial hematology Risk Factors: ASA, recent thrombocytopenia Please clarify and document your clinical opinion in the progress notes and discharge summary. Terms such as "probable", "suspected", "likely", "questionable", "possible", or "still to be ruled out" are acceptable. IF IN AGREEMENT, YOU MUST DOCUMENT ABOVE DIAGNOSTIC STATEMENT IN DAILY PROGRESS NOTES AND DISCHARGE SUMMARY. This document is not part of the patient's record. Thank You, Amanuel Polo, CINDA [phone]
--- NOTE | 2017-10-12 08:46 | Progress Note ---
Progress Note Date of Service Oct 12, 2017. Progress Note Patient is a 77 year old female transferred from [place] for symptomatic anemia, heme positive stool w/o overt signs of GI bleeding. Never had EGD eval but did recently have colonoscopy by Dr. Riggins in June - noted to have diverticulosis. She had recent L total knee replacement, and did have thrombocytopenia then evaluated by Heme/Onc who suspect it to be related to autoimmune thrombocytopenia. Plt normal now. No large ecchymosis except on L leg area. Abd exam currently benign. CBC w roughly 1 pt drop in H/H. No melena or bloody stools overnight. Repeat stool occult blood negative. Na improved to 130. Fe studies indicative of iron deficiency anemia. She is currently NPO for possible EGD evaluation. She is up walking in hallways, in NAD - NPO for possible EGD - Continue Protonix 40mg BID - Ferrous Sulfate 325mg BID - Monitor H/H and transfuse prn. - Monitor Na level.
[2017-10-12] MEDS ORDERED: LIDOCAINE HCL 2% 2 ML VIAL (20MG/ML) ONE (11:56)
[2017-10-12] MEDS ORDERED: LABETALOL HCL IV 5 MG/ML 20ML IV ONE (11:56)
[2017-10-12] MEDS ORDERED: PROPOFOL IV EMULSION 10 MG/ML 20 ML VIAL IV ONE (11:56)
--- NOTE | 2017-10-12 12:10 | GI REPORT ---
Patient Name: Ally Luna Procedure Date: 10/12/2017 11:10 AM Date of : 1940 Admit Type: Inpatient Age: 77 Gender: Female Attending MD: Shantelle Wynn MD Procedure: Upper GI endoscopy Providers: Shantelle Wynn MD Referring MD: Jacob Valdez Indications: Acute post hemorrhagic anemia Medicines: See the Anesthesia note for documentation of the administered medications Complications: No immediate complications. Estimated Blood Loss: Estimated blood loss: none. Procedure: Pre-Anesthesia Assessment: - ASA Grade Assessment: III - A patient with severe systemic disease. After obtaining informed consent, the endoscope was passed under direct vision. Throughout the procedure, the patient's blood pressure, pulse, and oxygen saturations were monitored continuously. The scope was introduced through the mouth, and advanced to the third part of duodenum. The upper GI endoscopy was accomplished without difficulty. The patient tolerated the procedure well. Findings: There was a small hiatal hernia, otherwise examined esophagus was normal. Tertiary contractions were seen. The GE junction was at 35 cm. The stomach and duodenum were normal. Impression: No source of UGI blood loss. Recommendation: - Discharge patient to home. - OK for d/c home. Diet as tolerated. Hgb stable, no evidence of acute/ongoing GIB. s/p recent cscopy that was reportedly normal - defer repeating. Ok to resume anti-plt therapy if needed. - Would ask PCP to cont to follow Hgb. No need for f/u in GI clinic. We will arrange for outpt capsule endoscopy to complete anemia w/u. - Please call with questions. Shantelle Wynn M.D. Shantelle Wynn MD 10/12/2017 12:10:03 PM This report has been signed electronically. Note Initiated On: 10/12/2017 11:10 AM Number of Addenda: 0 I attest to the content of the Intraoperative Record and orders documented therein, exceptions below {[id number]}
[2017-10-12 12:56] VITALS: BP 171/86; PULSE 81; TEMP 36.8; O2SAT 95
[2017-10-12] MEDS: LOSARTAN POTASSIUM 50 MG TAB PO SCH (12:58)
[2017-10-12] MEDS: CARVEDILOL 25 MG TAB PO SCH ×2 (12:59→20:06)
[2017-10-12] MEDS: LORAZEPAM 0.5 MG TAB PO PRN ×2 (13:01→21:11)
--- NOTE | 2017-10-12 13:23 | Anesthesiology Progress Note ---
Anesthesia Post Op Note Date & Time Oct 12, 2017 at 13:23 Vital Signs Pain Intensity: 0 Vital Signs Past 12 Hours Date Time Temp Pulse Resp B/P (MAP) Pulse Ox O2 Delivery O2 Flow Rate FiO2 10/12/17 12:56 36.8 81 16 171/86 (114) 95 Room Air 10/12/17 12:25 76 20 210/113 (145) 98 Nasal Cannula 10/12/17 12:10 78 20 177/83 (114) 97 Nasal Cannula 10/12/17 11:54 77 20 155/72 (99) 97 Nasal Cannula 10/12/17 11:14 210/113 (145) 10/12/17 11:11 36.6 81 20 185/12 (69) 98 Nasal Cannula 10/12/17 08:10 Room Air 10/12/17 07:03 37.0 79 20 161/91 (114) 97 Room Air Notes Mental Status: alert / awake / arousable, participated in evaluation Pt Amnestic to Procedure: Yes Nausea / Vomiting: adequately controlled Pain: adequately controlled Airway Patency, RR, SpO2: stable & adequate BP & HR: stable & adequate Hydration State: stable & adequate Anesthetic Complications: no major complications apparent
--- NOTE | 2017-10-12 14:54 | DIAGNOSTIC IMAGING REPORT ---
LEFT LOWER EXTREMITY VENOUS DOPPLER HISTORY: Left leg swelling. rule out DVT; off anticoagulation COMPARISON STUDY: None. FINDINGS: Small focus of nonocclusive thrombus at the common femoral vein near the greater saphenous vein junction. Otherwise, the left superficial femoral vein, popliteal vein, and calf veins appear patent. Subcutaneous edema throughout the left lower extremity. A 3.5 x 1.6 x 2.5 cm slightly complex popliteal cyst is noted. IMPRESSION: Small focus of nonocclusive thrombus at the left common femoral vein. Electronically signed by: Estrada Bower M.D. 10/12/2017 2:52 PM Dictated Date/Time: 10/12/2017 2:51 PM
[2017-10-12 15:02] VITALS: BP 135/79; PULSE 81; TEMP 36.6; O2SAT 98
[2017-10-12 15:29] LABS: HEMATOCRIT 25.3 % (37-47); HEMOGLOBIN 8.8 g/dL (12.0-16.0)
[2017-10-12] MEDS: ACETAMINOPHEN 325 MG TAB PO PRN (15:56)
[2017-10-12] MEDS: FERROUS SULFATE 325 MG TAB PO SCH (17:09)
[2017-10-12] MEDS: MOMETASONE FUROATE 14 PUFF/1 INHALER INH SCH (20:05)
[2017-10-12] MEDS: ANASTROZOLE 1 MG TAB PO SCH (20:07)
[2017-10-12] MEDS: PRAVASTATIN SOD 20 MG TAB PO SCH (20:08)
[2017-10-12 23:36] VITALS: BP 148/81; PULSE 75; TEMP 36.8; O2SAT 97
[2017-10-13] MEDS: ACETAMINOPHEN 325 MG TAB PO PRN ×2 (00:19→20:07)
[2017-10-13] MEDS: MoRPHine SULFATE 2 MG/ML CARP IV PRN ×4 (04:17→22:03)
[2017-10-13 05:41] LABS: BASO % 0.3 %; BASO ABS # 0.02 K/uL (0-0.2); EOS % 1.5 %; EOS ABS # 0.09 K/uL (0-0.5); HEMATOCRIT 24.7 % (37-47); HEMOGLOBIN 8.3 g/dL (12.0-16.0); IG# 0.05 K/uL (0.00-0.02); LYMPH % 14.3 %; LYMPH ABS # 0.88 K/uL (1.2-3.4); MEAN CELL VOLUME 90.5 fL (80-100); MEAN CORPUSCULAR HEMOGLOBIN 30.4 pg (25-34); MEAN CORPUSCULAR HGB CONC 33.6 g/dl (32-36); MONO % 12.5 %; MONO ABS # 0.77 K/uL (0.11-0.59); NEUT % 70.6 %; NEUT ABS # 4.36 K/uL (1.4-6.5); PLATELET COUNT 144 K/uL (130-400); RED CELL DISTRIBUTION WIDTH SD 46.2 fL (36.4-46.3); WHITE BLOOD COUNT 6.17 K/uL (4.8-10.8)
[2017-10-13 06:15] LABS: ALBUMIN 2.4 gm/dl (3.4-5.0); CREATININE 1.05 mg/dl (0.60-1.20); POTASSIUM 3.9 mmol/L (3.5-5.1)
[2017-10-13 06:18] LABS: TOTAL PROTEIN 5.8 gm/dl (6.4-8.2)
[2017-10-13] MEDS: LEVOTHYROXINE 100 MCG TAB PO SCH (06:41)
[2017-10-13 07:47] VITALS: BP 155/90; PULSE 83; TEMP 36.9; O2SAT 96
[2017-10-13] MEDS: CARVEDILOL 25 MG TAB PO SCH ×2 (07:50→20:04)
[2017-10-13] MEDS: LOSARTAN POTASSIUM 50 MG TAB PO SCH (07:51)
[2017-10-13] MEDS: LORAZEPAM 0.5 MG TAB PO PRN ×3 (07:51→23:55)
[2017-10-13] MEDS: FERROUS SULFATE 325 MG TAB PO SCH ×2 (07:51→17:20)
[2017-10-13] MEDS: PANTOprazole INJ 40 MG in SYRINGE 0 ML IV SCH ×2 (07:51→19:56)
--- NOTE | 2017-10-13 08:02 | Family Medicine Progress Note ---
Progress Note Date of Service Oct 13, 2017. Subjective Pt evaluation today including: conversation w/ patient, conversation w/ family , physical exam, chart review, lab review Patient is doing well. Out of bed to chair with assistance. Denies sx of anemia ; no chest pain, no SOB. Tolerating a regular diet. Constitutional: No fever, No chills Respiratory: No cough, No sputum, No wheezing, No shortness of breath Cardiovascular: No chest pain, No palpitations Abdomen: No pain, No nausea, No vomiting, No diarrhea Musculoskeletal: + joint pain, + muscle pain, + swelling, + calf pain Female : No dysuria Medications Current Inpatient Medications Medications (Trade) Dose Ordered Sig/Lanette Route Start Time Stop Time Status Last Admin Dose Admin Acetaminophen (Tylenol Tab) 650 mg Q4H PRN PO 10/11/17 03:30 11/10/17 03:29 10/13/17 00:19 650 MG Al Hydrox/Mg Hydrox/Simethicone (Maalox Max Susp) 15 ml Q4H PRN PO 10/11/17 03:30 11/10/17 03:29 Magnesium Hydroxide (Milk Of Magnesia Susp) 30 ml Q6H PRN PO 10/11/17 03:30 11/10/17 03:29 Polyethylene (Miralax Powder Packet) 17 gm DAILY PRN PO 10/11/17 03:30 11/10/17 03:29 Ondansetron HCl (Zofran Inj) 4 mg Q6H PRN IV 10/11/17 03:30 11/10/17 03:29 10/12/17 13:01 4 MG Pantoprazole Sodium 40 mg/ Syringe 10 ml @ 5 mls/min DAILY@ IV 10/11/17 09:00 11/10/17 08:59 10/13/17 07:51 5 MLS/MIN Anastrozole (Arimidex Tab) 1 mg QPM PO 10/11/17 21:00 11/10/17 20:59 10/12/17 20:07 1 MG Buspirone HCl (Buspar Tab) 5 mg BID PO 10/11/17 08:00 11/10/17 07:59 10/13/17 07:50 5 MG Carvedilol (Coreg Tab) 25 mg BID PO 10/11/17 08:00 11/10/17 07:59 10/13/17 07:50 25 MG Levothyroxine Sodium (Synthroid Tab) 100 mcg DAILYBB PO 10/11/17 06:30 11/10/17 06:29 10/13/17 06:41 100 MCG Losartan Potassium (coZAAR TAB) 100 mg QAM PO 10/11/17 08:00 11/10/17 07:59 10/13/17 07:51 100 MG Pravastatin Sodium (Pravachol Tab) 10 mg HS PO 10/11/17 21:00 11/10/17 20:59 10/12/17 20:08 10 MG Albuterol (Proair Hfa) 2 puffs Q6H PRN INH 10/11/17 03:45 11/10/17 03:44 10/11/17 19:05 2 PUFFS Hydrochlorothiazide (Hydrochlorothiazide Tab) 6.25 mg QAM PO 10/11/17 08:00 11/10/17 07:59 Future Hold 10/11/17 09:26 6.25 MG Morphine Sulfate (MoRPHine SULFATE INJ) 2 mg Q4H PRN IV 10/11/17 07:30 10/25/17 03:44 10/13/17 13:11 2 MG Lorazepam (Ativan Tab) 0.5 mg Q8H PRN PO 10/11/17 16:30 11/10/17 14:44 10/13/17 15:56 0.5 MG Mometasone Furoate (Asmanex 220MCG Inh) 2 puff QPM INH 10/11/17 21:00 11/10/17 20:59 10/12/17 20:05 2 PUFF Ferrous Sulfate (Feosol Tab) 325 mg BIDM PO 10/12/17 17:00 11/11/17 16:59 10/13/17 07:51 325 MG Objective Vital Signs Date Time Temp Pulse Resp B/P (MAP) Pulse Ox O2 Delivery O2 Flow Rate FiO2 10/13/17 14:35 37.4 78 20 150/84 (106) 97 10/13/17 10:35 Room Air 10/13/17 07:47 36.9 83 20 155/90 (111) 96 Room Air 10/13/17 00:00 Room Air 10/12/17 23:36 36.8 75 20 148/81 (103) 97 Room Air Physical Exam General Appearance: WD/WN, no apparent distress Neck: supple, no adenopathy, thyroid normal Respiratory/Chest: lungs clear, normal breath sounds, no respiratory distress Cardiovascular: regular rate, rhythm, no murmur Abdomen: non tender, soft Extremities: no calf tenderness, + swelling (bilateral pedal edema, clean, dry , intact dressing over left knee) Neurologic/Psychiatric: alert, normal mood/affect Skin: normal color, warm/dry, no rash Laboratory Results 10/13/17 05:08 Red Blood Count 2.73, Mean Corpuscular Volume 90.5, Mean Corpuscular Hemoglobin 30.4, Mean Corpuscular Hemoglobin Concent 33.6, Mean Platelet Volume 8.0, Neutrophils (%) (Auto) 70.6, Lymphocytes (%) (Auto) 14.3, Monocytes (%) (Auto) 12.5, Eosinophils (%) (Auto) 1.5, Basophils (%) (Auto) 0.3, Neutrophils # (Auto ) 4.36, Lymphocytes # (Auto) 0.88, Monocytes # (Auto) 0.77, Eosinophils # (Auto ) 0.09, Basophils # (Auto) 0.02 10/13/17 05:08 Test 10/13/17 05:08 White Blood Count 6.17 K/uL (4.8-10.8) Red Blood Count 2.73 M/uL (4.2-5.4) Hemoglobin 8.3 g/dL (12.0-16.0) Hematocrit 24.7 % (37-47) Mean Corpuscular Volume 90.5 fL (80-100) Mean Corpuscular Hemoglobin 30.4 pg (25-34) Mean Corpuscular Hemoglobin Concent 33.6 g/dl (32-36) Platelet Count 144 K/uL (130-400) Mean Platelet Volume 8.0 fL (7.4-10.4) Neutrophils (%) (Auto) 70.6 % Lymphocytes (%) (Auto) 14.3 % Monocytes (%) (Auto) 12.5 % Eosinophils (%) (Auto) 1.5 % Basophils (%) (Auto) 0.3 % Neutrophils # (Auto) 4.36 K/uL (1.4-6.5) Lymphocytes # (Auto) 0.88 K/uL (1.2-3.4) Monocytes # (Auto) 0.77 K/uL (0.11-0.59) Eosinophils # (Auto) 0.09 K/uL (0-0.5) Basophils # (Auto) 0.02 K/uL (0-0.2) RDW Standard Deviation 46.2 fL (36.4-46.3) RDW Coefficient of Variation 14.0 % (11.5-14.5) Immature Granulocyte % (Auto) 0.8 % Immature Granulocyte # (Auto) 0.05 K/uL (0.00-0.02) Red Blood Cell Morphology Unremarkable Anion Gap 6.0 mmol/L (3-11) Est Creatinine Clear Calc Drug Dose 57.9 ml/min Estimated GFR () 59.3 Estimated GFR (Non- 51.2 BUN/Creatinine Ratio 17.0 (10-20) Calcium Level 8.0 mg/dl (8.5-10.1) Total Bilirubin 0.7 mg/dl (0.2-1) Aspartate Amino Transf (AST/SGOT) 25 U/L (15-37) Alanine Aminotransferase (ALT/SGPT) 19 U/L (12-78) Alkaline Phosphatase 49 U/L (45-117) Total Protein 5.8 gm/dl (6.4-8.2) Albumin 2.4 gm/dl (3.4-5.0) Globulin 3.4 gm/dl (2.5-4.0) Albumin/Globulin Ratio 0.7 (0.9-2) Assessment and Plan 77 yo f s/p total left knee replacement treated for sx anemia Assessment; Patient is doing well--stable Hgb, unremarkable EGD and negative FOBT. Patient was found to have DVT on doppler USG. Discussed with GI--okay with anticoagulant therapy. Plan; initiating anticoagulant therapy: Lovenox 120 BID + Warfarin 5mg daily. Dc planning to [facility] By problem; Anemia -Worked up for GI bleed on ASA vs low base line in the setting of ortho surgery- -unremarkable EGD, FOBT negative -Hgb is relatively stable since transfusion -Discussed with Dr. Wynn--Okay to initiate anticoagulation, avoiding NOAC, starting pt on Coumadin DVT -Anticoagulation-Coumadin, bridging with Lovenox -Non-occlusive thrombosis in left common femoral vein Recovery from total left knee replacement -Dc to [facility] for rehab HTN -cont. carvedilol, losartan -patient's pressures elevated yesterday following EGD, will continue to monitor Hypotonic Hyponatremia -calculated serum osm <285 -Na recovering since HCTZ held Other chronic conditions; Hypertension- Continue carvedilol and losartan. Hyperlipidemia- Continue pravastatin Depression/Anxiety- Continue buspirone Hypothyroidism- Continue levothyroxine GERD- Continue Pantoprazole Breast Cancer- Continue Arimidex Assessment/Plan Resident Physician Supervision Note: I was present with Dr. Cordon during the history and exam. I discussed the case with the resident and agree with the findings and plan as documented in the note. Any exceptions or clarifications are listed here: Pt reports feeling considerably better than yesterday, more engaged with care. At present, would start warfarin and bridge with lovenox for tight control and close watch for bleeding. Encouraged engagement with PT and will work on transition to [facility].
[2017-10-13 14:35] VITALS: BP 150/84; PULSE 78; TEMP 37.4; O2SAT 97
[2017-10-13] MEDS ORDERED: WARFARIN SOD 5 MG TAB PO ONE (17:15)
[2017-10-13] MEDS: ENOXAPARIN 120 MG/0.8 ML SYR SQ SCH (18:13)
[2017-10-13] MEDS: MOMETASONE FUROATE 14 PUFF/1 INHALER INH SCH (19:56)
[2017-10-13] MEDS: PRAVASTATIN SOD 20 MG TAB PO SCH (19:57)
[2017-10-13] MEDS: ANASTROZOLE 1 MG TAB PO SCH (20:09)
[2017-10-13 23:17] VITALS: BP 128/73; PULSE 75; TEMP 37.1; O2SAT 94
[2017-10-14] MEDS: ACETAMINOPHEN 325 MG TAB PO PRN (01:45)
[2017-10-14] MEDS: ENOXAPARIN 120 MG/0.8 ML SYR SQ SCH (04:59)
[2017-10-14] MEDS: LEVOTHYROXINE 100 MCG TAB PO SCH (05:00)
[2017-10-14 06:04] LABS: HEMATOCRIT 27.6 % (37-47); HEMOGLOBIN 9.2 g/dL (12.0-16.0); MEAN CELL VOLUME 91.1 fL (80-100); MEAN CORPUSCULAR HEMOGLOBIN 30.4 pg (25-34); MEAN CORPUSCULAR HGB CONC 33.3 g/dl (32-36); MEAN PLATELET VOLUME 8.4 fL (7.4-10.4); PLATELET COUNT 147 K/uL (130-400); RED CELL DISTRIBUTION WIDTH SD 46.8 fL (36.4-46.3); WHITE BLOOD COUNT 6.47 K/uL (4.8-10.8)
[2017-10-14 06:32] LABS: CALCIUM 8.4 mg/dl (8.5-10.1); CREATININE 0.97 mg/dl (0.60-1.20); POTASSIUM 3.9 mmol/L (3.5-5.1)
[2017-10-14 07:31] VITALS: BP 163/98; PULSE 74; TEMP 36.5; O2SAT 99
--- NOTE | 2017-10-14 07:59 | Family Medicine Progress Note ---
Progress Note Date of Service Oct 14, 2017. Assessment and Plan 77 yo f s/p total left knee replacement treated for sx anemia Assessment; Patient is doing well--stable Hgb, unremarkable EGD and negative FOBT. Patient was found to have DVT on doppler USG. Discussed with GI--okay with anticoagulant therapy. Plan; initiating anticoagulant therapy: Lovenox 120 BID + Warfarin 5mg daily. Dc planning to [facility] By problem; Anemia -Worked up for GI bleed on ASA vs low base line in the setting of ortho surgery- -unremarkable EGD, FOBT negative -Hgb is relatively stable since transfusion -Discussed with Dr. Wynn--Nainay to initiate anticoagulation, avoiding NOAC, starting pt on Coumadin DVT -Anticoagulation-Coumadin, bridging with Lovenox -Non-occlusive thrombosis in left common femoral vein Recovery from total left knee replacement -Dc to [facility] for rehab HTN -cont. carvedilol, losartan -patient's pressures elevated yesterday following EGD, will continue to monitor Hypotonic Hyponatremia -calculated serum osm <285 -Na recovering since HCTZ held Other chronic conditions; Hypertension- Continue carvedilol and losartan. Hyperlipidemia- Continue pravastatin Depression/Anxiety- Continue buspirone Hypothyroidism- Continue levothyroxine GERD- Continue Pantoprazole Breast Cancer- Continue Arimidex
[2017-10-14] MEDS: LOSARTAN POTASSIUM 50 MG TAB PO SCH (08:17)
[2017-10-14] MEDS: FERROUS SULFATE 325 MG TAB PO SCH (08:17)
[2017-10-14] MEDS: CARVEDILOL 25 MG TAB PO SCH (08:17)
[2017-10-14] MEDS: LORAZEPAM 0.5 MG TAB PO PRN (08:18)
[2017-10-14] MEDS: MoRPHine SULFATE 2 MG/ML CARP IV PRN ×2 (08:20→12:29)
[2017-10-14] MEDS: ALBUTEROL HFA INHALER 8.5 GM INH PRN (09:37)
[2017-10-14] MEDS ORDERED: COUGH DROP (SUGAR FREE) LOZ 24 LOZ/1 BOX LOZ ONE (09:48)
[2017-10-14] MEDS: PANTOprazole INJ 40 MG in SYRINGE 0 ML IV SCH (11:40)
[2017-10-14] MEDS ORDERED: CMD5 PO (11:44)
[2017-10-14] MEDS ORDERED: LVNIS120 SQ (11:44)
[2017-10-14] MEDS ORDERED: FRRS300 PO (11:44)
[2017-10-14 11:58] VITALS: BP 163/98; PULSE 74; TEMP 36.5; O2SAT 99
--- NOTE | 2017-10-14 12:05 | Discharge Instructions ---
Discharge Instructions Date of Service Oct 14, 2017. Admission Reason for Admission: Symptomatic Anemia, Possible Gi Bleed Discharge Discharge Diagnosis / Problem: Anemia Discharge Goals Goal(s): Decrease discomfort, Improve function, Increase independence, Improve nutritional status, Learn about illness Activity Recommendations Activity Limitations: per Instructions/Follow-up section . Instructions / Follow-Up Instructions / Follow-Up Ms. Luna presented to [facility] with symptomatic anemia (Hgb of 7) following a left knee replacement on 10/02. Prior to admission, she was transferred 1 unit of PRBC at [facility]. The course of her care center around determining if she was actively bleeding. Patient was seen by gastroenterology and had the following workup; FOBT, EGD and CBC trending. The patient hgb remained stable b/w 8-9. GI workup was unremarkable for GI bleed. During the course of the patient hospitalization, the patient received LE ext. dopplers for extensive left LE edema. The test concluded nonocclusive thrombus of the left common femoral vein. After careful discussion with GI, it was determined that there wasn't contraindication to anticoagulation. The patient was subsequently started on Coumadin and Lovenox. Hgb has remained stable. The patient was discharged on 10/14 for rehab at [facility]. Scripts have been sent. She will need regular blood work, including INR checks and blood counts. Patient has requested to have her oncologist, Dr. Ashby to follow up with INR checks [facility] Current Hospital Diet Patient's current hospital diet: Low Sodium Diet (2gm Na), AHA Diet (Heart Healthy) Discharge Diet Recommended Diet: AHA Diet (Heart Healthy), Diabetes Type 2 Diet Pending Studies Studies pending at discharge: no List of pending studies: LEFT LOWER EXTREMITY VENOUS DOPPLER HISTORY: Left leg swelling. rule out DVT; off anticoagulation COMPARISON STUDY: None. FINDINGS: Small focus of nonocclusive thrombus at the common femoral vein near the greater saphenous vein junction. Otherwise, the left superficial femoral vein, popliteal vein, and calf veins appear patent. Subcutaneous edema throughout the left lower extremity. A 3.5 x 1.6 x 2.5 cm slightly complex popliteal cyst is noted. IMPRESSION: Small focus of nonocclusive thrombus at the left common femoral vein. EGD Findings: There was a small hiatal hernia, otherwise examined esophagus was normal. Tertiary contractions were seen. The GE junction was at 35 cm. The stomach and duodenum were normal. Impression: No source of UGI blood loss. Recommendation: - Discharge patient to home. - OK for d/c home. Diet as tolerated. Hgb stable, no evidence of acute/ongoing GIB. s/p recent cscopy that was reportedly normal - defer repeating. Ok to resume anti-plt therapy if needed. - Would ask PCP to cont to follow Hgb. No need for f/u Laboratory Results Hemoglobin A1c Test 09/07/17 15:23 Range/Units Estimated Average Glucose 123 mg/dl Hemoglobin A1c 5.9 H 4.5-5.6 % Medical Emergencies . Who to Call and When: Medical Emergencies: If at any time you feel your situation is an emergency, please call 911 immediately. . Non-Emergent Contact Non-Emergency issues call your: Primary Care Provider, Oncologist . . "Provider Documentation" section prepared by Matthew Cordon. .
--- NOTE | 2017-10-14 12:19 | Discharge Summary ---
Discharge Summary Date of Service Oct 14, 2017. Discharge Summary Admission Date: Oct 11, 2017 at 01:33 Discharge Date: Oct 14, 2017 Principal Diagnosis: Symptomatic Anemia Problems/Secondary Diagnoses: s/p total left knee replacement 10/02 Procedures: [~ rep ct add3]] LEFT LOWER EXTREMITY VENOUS DOPPLER HISTORY: Left leg swelling. rule out DVT; off anticoagulation COMPARISON STUDY: None. FINDINGS: Small focus of nonocclusive thrombus at the common femoral vein near the greater saphenous vein junction. Otherwise, the left superficial femoral vein, popliteal vein, and calf veins appear patent. Subcutaneous edema throughout the left lower extremity. A 3.5 x 1.6 x 2.5 cm slightly complex popliteal cyst is noted. IMPRESSION: Small focus of nonocclusive thrombus at the left common femoral vein. SINGLE VIEW CHEST CLINICAL HISTORY: Cough and dyspnea. FINDINGS: An AP, portable, upright chest radiograph is compared to study dated 09/07/2017. The examination is degraded by portable technique and patient rotation. The heart is enlarged. The pulmonary vasculature is noncongested. Chronic interstitial thickening is similar to previous. Mild bibasilar atelectasis is noted. There is no airspace consolidation typical for pneumonia or large pleural effusion. No pneumothorax is seen. The skeletal structures are osteopenic. The bony thorax is grossly intact. Arthritic change is noted in the shoulders and thoracic spine. IMPRESSION: Cardiomegaly with no acute cardiopulmonary abnormality. EGD Findings: There was a small hiatal hernia, otherwise examined esophagus was normal. Tertiary contractions were seen. The GE junction was at 35 cm. The stomach and duodenum were normal. Impression: No source of UGI blood loss. Recommendation: - Discharge patient to home. - OK for d/c home. Diet as tolerated. Hgb stable, no evidence of acute/ongoing GIB. s/p recent cscopy that was reportedly normal - defer repeating. Ok to resume anti-plt therapy if needed. - Would ask PCP to cont to follow Hgb. No need for f/u in GI clinic. We will arrange for outpt capsule endoscopy to complete anemia w/u. - Please call with questions. Shantelle Wynn M.D. Shantelle Wynn MD 10/12/2017 12:10:03 PM This report has been signed electronically. Note Initiated On: 10/12/2017 11:10 AM Number of Addenda: 0 I attest to the content of the Intraoperative Record and orders documented therein, exceptions below Medication Reconciliation New Medications: Enoxaparin (Lovenox) 120 Mg/0.8 Ml Inj 120 MG SQ Q12H for 7 Days, #14 EA 0 Refills Ferrous Sulfate (Ferrous Sulfate) 325 Mg Tab 325 MG PO BIDM for 30 Days, #60 TAB Warfarin Sod (Coumadin) 5 Mg Tab 5 MG PO DAILY@16 for 30 Days, #30 TAB 0 Refills Continued Medications: Acetaminophen (Sb Non-Aspirin Extra Stre) 500 Mg Tab 1000 MG PO Q8H, #63 TAB Albuterol Sulfate (Proair Respiclick) 108 Mcg/Act Aer 2 PUFFS INH PRN Aloe Vera (Topical) (Aloe Vera) 1 Gel Gel 1 TAB PO HS Amoxicillin (Amoxil) 500 Mg Cap 2000 MG PO UD PRN for RN, #21 CAP BEFORE DENTAL Anastrozole (Arimidex) 1 Mg Tab 1 MG PO QPM, TAB Buspirone Hcl (Buspar) 15 Mg Tab 5 MG PO BID, TAB Calcium Carbonate-Vitamin D (Calcium + D) 1 Tab Tab 1 TAB PO QAM Carvedilol (Coreg) 25 Mg Tab 25 MG PO BID, TAB Cholecalciferol (Vitamin D3) 2,000 Unit Tab 1 TAB PO QPM for 90 Days, TAB 3 Refills Docusate Sodium (Docusate Sodium) 100 Mg Cap 100 MG PO BID for 10 Days, #20 CAP Hydrochlorothiazide (Hydrochlorothiazide) 12.5 Mg Tab 0.5 TAB PO QAM for 90 Days, #45 TAB 3 Refills Lactobacillus (Probiotic Acidophilus) 1 Cap Cap 1 TAB PO QAM Levothyroxine Sodium (Levothyroxine Sodium) 100 Mcg Tab 1 TAB PO QAM for 90 Days, #90 TAB 3 Refills Lorazepam (Ativan) 1 Mg Tab 1 MG PO TID PRN for Anxiety, #9 TAB Losartan Potassium (Cozaar) 100 Mg Tab 100 MG PO QAM, TAB Mometasone Furoate (Inhalation (Asmanex Hfa) 200 Mcg/Act Aer 2 PUFFS INH QPM Omeprazole (Prilosec) 20 Mg Capcr 40 MG PO QAM, CAP Ondansetron Hcl (Zofran) 8 Mg Tab 8 MG PO Q8 PRN for Nausea, #20 TAB Oxycodone HCl (Oxycodone HCl) 5 Mg Tab 5-10 MG PO Q4H PRN for Pain, #60 TAB Pravastatin (Pravachol ) 20 Mg Tab 10 MG PO HS, TAB Discontinued Medications: Aspirin (Aspirin EC Low Dose) 81 Mg Ectab 81 MG PO BID for 30 Days, #60 TABS Bioflavonoid Products (Nelia-C) 1 Tab Tab 1 TAB PO QPM Biotin (Biotin 5000) 5 Mg Cap 5 MG PO QAM Coenzyme Q10 (Ubidecarenone) (Coq10) 150 Mg Cap 150 MG PO QAM Flaxseed (Linseed) (Flax Seed Oil) 1 Cap Cap 1 TAB PO QPM Ocuvite Preservision (Ocuvite Preservision) 1 Tab Tab 1 TAB PO HS, TAB [Bee Pollen] () 1 TAB PO QAM [Beet Root] () 500 MG PO BID [Cellular Antioxidant] () 1 TAB PO QPM [Garlic Parsley] () 3 TAB PO BID [Zinc] () 50 MG PO QPM Discharge Exam Review of Systems: Constitutional: No fever, No chills, No sweats Respiratory: + cough, No sputum, No wheezing, No shortness of breath Cardiovascular: No chest pain, No palpitations Abdomen: No pain, No nausea, No vomiting Genitourinary - Female: No dysuria Physical Exam: General Appearance: WD/WN, no apparent distress Neck: supple, no adenopathy Respiratory/Chest: chest non-tender, lungs clear, normal breath sounds, no respiratory distress Cardiovascular: regular rate, rhythm, no edema, no gallop, no murmur Abdomen / GI: non tender, soft Extremities: + pedal edema, + pertinent finding (significant edema of left lower ext, clean, dry, intact dressing on left knee) Neurologic/Psychiatric: alert, normal mood/affect, normal reflexes, oriented x 3 Skin: normal color, warm/dry, no rash Hospital Course Ms. Luna presented to [facility] with symptomatic anemia (Hgb of 7) following a left knee replacement on 10/02. Prior to admission, she was transferred 1 unit of PRBC at [facility]. The course of her care center around determining if she was actively bleeding. Patient was seen by gastroenterology and had the following workup; FOBT, EGD and CBC trending. The patient hgb remained stable b/w 8-9. GI workup was unremarkable for GI bleed. During the course of the patient hospitalization, the patient received LE ext. dopplers for extensive left LE edema. The test concluded nonocclusive thrombus of the left common femoral vein. After careful discussion with GI, it was determined that there wasn't contraindication to anticoagulation. The patient was subsequently started on Coumadin and Lovenox. Hgb has remained stable. The patient was discharged on 10/[address] [facility]. Scripts have been sent. She will need regular blood work, including INR checks and blood counts. Patient has requested to have her oncologist, Dr. Ashby to follow up with INR checks once she is discharged from [facility]. Total Time Spent: Greater than 30 minutes This includes examination of the patient, discharge planning, medication reconciliation, and communication with other providers. Discharge Instructions Please refer to the electronic Patient Visit Report (Discharge Instructions) for additional information. Additional Copies To Ronnie Claudio D.O.; Neetu Ashby M.D.; [facility] Assessment/Plan Resident Physician Supervision Note: I was present with Dr. Cordon during the history and exam. I discussed the case with the resident and agree with the findings and plan as documented in the note. Any exceptions or clarifications are listed here: Pt resting in bed without complaint at present. Ambulating well with physical therapy and eager to continue his rehab. Hgb has been stable and no signs of bleeding, would recheck at PCP f/u. Will be leaving on bridge to warfarin 2/2 DVT on ultrasound and need INR monitoring.
[2017-10-14] MEDS ORDERED: WARFARIN SOD 5 MG TAB PO SCH (16:00)
== END 2017-10-14 13:45 | DRG 378 ==
LOC: C.4E 10-11 01:33
PROVIDERS: ADMIT Internal Medicine; ATTEND Family Medicine
PROC: 0DJ08ZZ Inspection of Upper Intestinal Tract, Via Natural or Artificial Opening Endoscopic (ICD-10-PCS; principal; 2017-10-12 11:15)
DX: K92.2 Gastrointestinal hemorrhage, unspecified (principal); E87.1 Hypo-osmolality and hyponatremia; I82.412 Acute embolism and thrombosis of left femoral vein; D64.9 Anemia, unspecified; R06.00 Dyspnea, unspecified; M35.00 Sjogren syndrome, unspecified; E78.5 Hyperlipidemia, unspecified; C50.919 Malignant neoplasm of unspecified site of unspecified female breast; I10 Essential (primary) hypertension; M25.562 Pain in left knee; E03.9 Hypothyroidism, unspecified; J45.909 Unspecified asthma, uncomplicated; K21.9 Gastro-esophageal reflux disease without esophagitis; Z79.82 Long term (current) use of aspirin; Z79.899 Other long term (current) drug therapy; Z88.1 Allergy status to other antibiotic agents; Z88.2 Allergy status to sulfonamides; Z88.8 Allergy status to other drugs, medicaments and biological substances; Z96.652 Presence of left artificial knee joint

== ENCOUNTER 2023-12-09 10:57 | Inpatient (IN) ==
--- OUTSIDE RECORDS SUMMARY | 2023-12-09 11:05 | External Medical Summary ---
Author Name Unknown Address Unknown Organization [id number]:[facility] [address] [place] [id number] Laboratory Report Ordering Provider Test Date Status JONH MORAN 12/09/2023 06:10:12 Final Observation Date Value Abnormality Reference (Units ) Status BUN 12/09/2023 06:10:12 48 Above high normal 6-20 (mg/dL) Final Creatinine 12/09/2023 06:10:12 1.7 Above high normal 0.5-1.0 (mg/dL) Final Glomerular filtration rate/1.73 sq M.predicted [Volume Rate/Area] in Serum, Plasma or Blood by Creatinine-based formula (CKD-EPI) 12/09/2023 06:10:12 31 Below low normal >=60 (mL/min) Final eGFR is calculated based on the CKD-EPI 2020 equation Sodium 12/09/2023 06:10:12 136 135-146 (m mol/L) Final Potassium 12/09/2023 06:10:12 4.7 3.5-5.1 (m mol/L) Final Cl 12/09/2023 06:10:12 103 98-107 (mm ol/L) Final CO2 12/09/2023 06:10:12 23 22-32 (mmo l/L) Final Anion gap 12/09/2023 06:10:12 10 7-15 (mmol /L) Final Glucose 12/09/2023 06:10:12 104 70-120 (mg /dL) Final Calcium 12/09/2023 06:10:12 8.9 8.4-10.2 ( mg/dL) Final Performing Location [facility] [address] [place] [id number]
--- OUTSIDE RECORDS SUMMARY | 2023-12-09 11:05 | External Medical Summary ---
Author Name Unknown Address Unknown Organization [id number] [address] [place] [id number] Laboratory Report Ordering Provider Test Date Status HY,DEPAMPHILIS 12/02/2023 06:29:32 Final Observation Date Value Abnormality Reference (Units ) Status BUN 12/02/2023 06:29:32 25 Above high normal 6-20 (mg/dL) Final Creatinine 12/02/2023 06:29:32 1.0 0.5-1.0 (mg/dL) Final Glomerular filtration rate/1.73 sq M.predicted [Volume Rate/Area] in Serum, Plasma or Blood by Creatinine-based formula (CKD-EPI) 12/02/2023 06:29:32 56 Below low normal >=60 (mL/min) Final eGFR is calculated based on the CKD-EPI 2020 equation Sodium 12/02/2023 06:29:32 133 Below low normal 135 -146 (mmol/L) Final Potassium 12/02/2023 06:29:32 4.1 3.5-5.1 (m mol/L) Final Cl 12/02/2023 06:29:32 100 98-107 (mm ol/L) Final CO2 12/02/2023 06:29:32 25 22-32 (mmo l/L) Final Anion gap 12/02/2023 06:29:32 8 7-15 (mmol /L) Final Glucose 12/02/2023 06:29:32 106 70-120 (mg /dL) Final Calcium 12/02/2023 06:29:32 9.4 8.4-10.2 ( mg/dL) Final Performing Location [facility] [address] [place] [id number]
--- OUTSIDE RECORDS SUMMARY | 2023-12-09 11:05 | External Medical Summary ---
Author Name Unknown Address Unknown Organization K0G:LAB[facility]AT[facility] [place] [facility] [address] [place] [address] Laboratory Report Ordering Provider Test Date Status JONH MORAN 12/08/2023 06:18:44 Final Observation Date Value Abnormality Reference (Units ) Status BUN 12/08/2023 06:18:44 39 Above high normal 6-20 (mg/dL) Final Creatinine 12/08/2023 06:18:44 1.4 Above high normal 0.5-1.0 (mg/dL) Final Glomerular filtration rate/1.73 sq M.predicted [Volume Rate/Area] in Serum, Plasma or Blood by Creatinine-based formula (CKD-EPI) 12/08/2023 06:18:44 36 Below low normal >=60 (mL/min) Final eGFR is calculated based on the CKD-EPI 2020 equation Sodium 12/08/2023 06:18:44 135 135-146 (m mol/L) Final Potassium 12/08/2023 06:18:44 5.3 Above high normal 3. 5-5.1 (mmol/L) Final Result may be falsely elevat ed due to hemolysis. Cl 12/08/2023 06:18:44 101 98-107 (mm ol/L) Final CO2 12/08/2023 06:18:44 23 22-32 (mmo l/L) Final Anion gap 12/08/2023 06:18:44 11 7-15 (mmol /L) Final Glucose 12/08/2023 06:18:44 91 70-120 (mg /dL) Final Albumin 12/08/2023 06:18:44 2.6 Below low normal 3.8 -5.0 (g/dL) Final AST (Aspartate aminotransferase) 12/08/2023 06:18:44 37 Above high normal 10-35 (U/L) Final Result may be falsely elevat ed due to hemolysis. Alk Phos 12/08/2023 06:18:44 174 Above high normal 35 -130 (U/L) Final Bilirubin, Total 12/08/2023 06:18:44 0.5 <=1 .2 (mg/dL) Final Calcium 12/08/2023 06:18:44 9.1 8.4-10.2 ( mg/dL) Final Protein 12/08/2023 06:18:44 4.8 Below low normal 6.0 -8.3 (g/dL) Final ALT (Alanine aminotransferase) 12/08/2023 06:18:44 12 10-35 (U/L) Joseluis bess Performing Location LABORATORY [place] [address] [facility] [address]
--- OUTSIDE RECORDS SUMMARY | 2023-12-09 11:05 | External Medical Summary ---
Author Name Unknown Address Unknown Organization [id number]:LABORATORY [facility]ESSICA [address] - [address] [place] [address] Laboratory Report Ordering Provider Test Date Status JONH MORAN 12/08/2023 06:18:44 Final Observation Date Value Abnormality Reference (Units ) Status WBC, Total 12/08/2023 06:18:44 9.44 4.00-10.8 0 (K/uL) Final RBC 12/08/2023 06:18:44 3.21 3.85-5.15 (M/uL) Final Hemoglobin 12/08/2023 06:18:44 9.4 Below low normal 12 .0-15.3 (g/dL) Final HCT 12/08/2023 06:18:44 30.5 Below low normal 36. 0-45.2 (%) Final MCV 12/08/2023 06:18:44 95.0 81.5-97.5 (fL) Final MCH 12/08/2023 06:18:44 29.3 27.0-34.0 (pg) Final MCHC 12/08/2023 06:18:44 30.8 32.0-36.0 (g/dL) Final RDW 12/08/2023 06:18:44 16.4 11.5-15.5 (%) Final Platelets 12/08/2023 06:18:44 61 Below low normal 140 -400 (K/uL) Final MPV 12/08/2023 06:18:44 10.9 6.6-11.1 ( fL) Final Performing Location LABORATORY [facility] [address] [address] [place] [address]
--- OUTSIDE RECORDS SUMMARY | 2023-12-09 11:05 | External Medical Summary ---
Author Name Unknown Address Unknown Organization K0G:LABORATORY [facility] JESSICA [address] - [address] [place] [address] Laboratory Report Ordering Provider Test Date Status HY,DEPAMPHILIS 12/09/2023 06:10:12 Final Observation Date Value Abnormality Reference (Units ) Status WBC, Total 12/09/2023 06:10:12 11.46 Above high normal 4 .00-10.80 (K/uL) Final RBC 12/09/2023 06:10:12 2.98 3.85-5.15 (M/uL) Final Hemoglobin 12/09/2023 06:10:12 8.8 Below low normal 12 .0-15.3 (g/dL) Final HCT 12/09/2023 06:10:12 27.7 Below low normal 36. 0-45.2 (%) Final MCV 12/09/2023 06:10:12 93.0 81.5-97.5 (fL) Final MCH 12/09/2023 06:10:12 29.5 27.0-34.0 (pg) Final MCHC 12/09/2023 06:10:12 31.8 32.0-36.0 (g/dL) Final RDW 12/09/2023 06:10:12 16.4 11.5-15.5 (%) Final Platelets 12/09/2023 06:10:12 55 Below low normal 140 -400 (K/uL) Final MPV 12/09/2023 06:10:12 11.7 6.6-11.1 ( fL) Final Performing Location LABORATORY [facility] JESSICA [address] - [address] [place] [address]
--- OUTSIDE RECORDS SUMMARY | 2023-12-09 11:05 | External Medical Summary ---
Author Name Unknown Address Unknown [facility] [address] - [address] [place] [address] Laboratory Report Ordering Provider Test Date Status HY,DEPAMPHILIS 12/02/2023 06:29:32 Final Observation Date Value Abnormality Reference (Units ) Status WBC, Total 12/02/2023 06:29:32 4.74 4.00-10.8 0 (K/uL) Final RBC 12/02/2023 06:29:32 2.92 3.85-5.15 (M/uL) Final Hemoglobin 12/02/2023 06:29:32 8.7 Below low normal 12 .0-15.3 (g/dL) Final HCT 12/02/2023 06:29:32 26.5 Below low normal 36. 0-45.2 (%) Final MCV 12/02/2023 06:29:32 90.8 81.5-97.5 (fL) Final MCH 12/02/2023 06:29:32 29.8 27.0-34.0 (pg) Final MCHC 12/02/2023 06:29:32 32.8 32.0-36.0 (g/dL) Final RDW 12/02/2023 06:29:32 16.1 11.5-15.5 (%) Final Platelets 12/02/2023 06:29:32 52 Below low normal 140 -400 (K/uL) Final MPV 12/02/2023 06:29:32 11.3 6.6-11.1 ( fL) Final Performing Location LABORATORY [facility] [place]ESS[place] [address] [place] [address]
--- OUTSIDE RECORDS SUMMARY | 2023-12-09 11:05 | External Medical Summary | Summary of Care ---
Author Name Unknown Organization [facility] Address [address] [place] [address] Phone [phone] Care Team Providers Care Out Of Town Collection Clerk Name Role Phone GonzálezRonnie cesar Primary Care Provider + Reason for Referral * Evaluate & Treat - Unlimited Visits (Within 10 days (routine)) - Authorized Specialty Diagnoses / Procedures Referred By Isai delgado Referred To Contact Gastroenterology Diagnoses Chronic pancreatitis (HCC) Loss of weight Chelsie Graves CRNP [address] [address] Referral ID Status Reason Start Date Expiration Date Visits Requested Visits Authorized [id number] Authorized Specialty Services Required 12/05/[phone] Question Answer Referral Priority Within 10 days (routine) Where should this appointment be scheduled? [facility] For what condition is the patient being referred? All Gastro Conditions Comments Chronic pancreatitis, weight loss Encounter Details Date Type Department Care Team ([facility] st Contact Info) Description 12/05/2023 Orders Only Access Center, [place] [address] [place] [address] Ext *DO NOT REMOVE THIS DEPARTMENT* [place] [id number] Request, External Referral Chronic pancreatitis (HCC)*; Loss of weight Allergies Active Allergy Reactions Criticality Noted Date Comments Sulfamethoxazole-Trimethoprim Nausea/vomiting High 1 documented as of this encounter (statuses as of 12/05/2023) Medications Medication Sig Dispensed Refills Start Date End Date Status Asmanex (120 Metered Doses) 220 MCG/INH Inhalation Aerosol Powder Breath Activated (Mometasone Furoate) Inhale 2 Puffs by mouth in the morning and 2 Puffs before bedtime. Active Albuterol Sulfate 108 (90 Base) MCG/ACT Inhalation Aerosol Powder Breath Activated Inhale 2 Puffs by mouth every 6 hours as needed for Wheezing. Active Amoxicillin 500 MG Oral Capsule (AMOXIL) Take 1 Capsule by mouth as needed (Take 4 capsules 1 hour prior to dental appt). Active Docusate Sodium 100 MG Oral Tablet Take 1 Tablet by mouth in the morning. Active Ferrous Sulfate 325 (65 Fe) MG Oral Tablet (FEOSOL) Take 1 Tablet by mouth daily at noon. Active busPIRone HCl 5 MG Oral Tablet (BUSPAR) Take 1 Tablet by mouth in the morning and 1 Tablet before bedtime. Active Levothyroxine Sodium 100 MCG Oral Capsule (Tirosint) Take 1 Capsule by mouth daily first thing in the morning. (at least 30 min prior to breakfast or other meds) Active LORazepam 0.5 MG Oral Tablet (ATIVAN) Take 1 Tablet by mouth every 12 hours as needed for Anxiety. Active Coenzyme Q10 100 MG Oral Capsule Take 1 Capsule by mouth in the morning. Active Citracal Petites/Vitamin D 200-250 MG-UNIT Oral Tablet (Calcium Citrate-Vitamin D) Take 1 Tab by mouth 2 times a day. Active Ocuvite Adult 50+ Oral Capsule Take 1 Capsule by mouth in the morning. Active Vitamin D3 25 MCG (1000 UT) Oral Capsule Take by mouth 2 times a day . Active B-12 500 MCG Oral Tablet Take by mouth 2 times a day . Active Zinc 50 MG Oral Capsule Take 1 Capsule by mouth in the morning. Active Nelia-C Oral Tablet Take by mouth 1 Tablet daily . 500 mg Active L-Lysine 500 MG Oral Capsule Take by mouth daily . Active Lutein 10 MG Oral Tablet Take by mouth 6 mg daily . Active Grapeseed Extract 500-50 MG Oral Capsule Take by mouth 100 mg 2 times a day . Active Biotinex Oral Capsule Take by mouth 1,000 mcg 2 times a day . Active Prevagen 10 MG Oral Capsule (Apoaequorin) Take by mouth. Takes two in the am Active Align 4 MG Oral Capsule Take 1 Capsule by mouth in the morning. Active Resveratrol 100 MG Oral Capsule Take by mouth. Takes two daily Active Montelukast Sodium 10 MG Oral Tablet (Singulair) Take 1 Tablet by mouth daily at noon. 04/23/2023 Active Atorvastatin Calcium 40 MG Oral Tablet (Lipitor) Take 1 Tablet by mouth at bedtime. Active oxyBUTYnin Chloride 5 MG Oral Tablet (Ditropan) Take 1 Tablet by mouth at bedtime. Active Benzonatate 100 MG Oral Capsule (Tessalon Perles) Take 1 Capsule by mouth 2 times a day as needed for Cough. Active Mirtazapine 7.5 MG Oral Tablet (Remeron) Take 1 Tablet by mouth at bedtime. Active Carvedilol 12.5 MG Oral Tablet (Coreg)Indications: SBP > 145 mm Hg Take 1 Tablet by mouth in the morning and 1 Tablet before bedtime. 60 Tablet 11/24/2023 Active Urea 15 GM Oral Packet (Ure-Na) Take 15 g by mouth in the morning and 15 g before bedtime. 60 Packet 11/24/2023 Active LiquaCel Oral Liquid Take 30 mL by mouth in the morning and 30 mL before bedtime. 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 Acute blood loss anemia 11/21/2023 Dilutional hyponatremia 11/18/2023 Anemia associated with nutritional deficiency Malnutrition of moderate degree 11/14/2023 Chronic idiopathic thrombocytopenia 11/14/2023 Sjogren's syndrome 11/14/2023 Acute pancreatitis 11/13/2023 Pseudocyst of pancreas 11/13/2023 Abnormal findings on diagnos tic imaging of other abdominal regions, including retroperitoneum 11/08/2023 Weight loss 11/08/2023 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 Chronic pancreatitis 10/15/2023 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 07/20/2023 Cardiac pacemaker 12/06/2022 Paroxysmal atrial fibrillation 12/06/2022 Aortic stenosis 07/14/2020 HTN (hypertension) 07/14/2020 Malignant neoplasm of breast 10/12/2015 Hypothyroidism 06/15/2014 documented as of this encounter (statuses as of 12/05/2023) Resolved Problems Problem Noted Date Diagnosed Date Resolved Date CHRIS (acute kidney injury) 11/21/2023 Gastrointestinal hemorrhage 11/21/2023 11/24/2023 UTI (urinary tract infection) 11/13/2023 11/14/2023 documented as of this encounter (statuses as of 12/05/2023) Immunizations Name Administration Dates Next Due COVID-19 mRNA, LNP-s, No Pre serve, 2-Dose Series (Moderna) 08/20/2020,07/23/2020 COVID-19, mRNA, LNP-s, PF, B ooster, 100mcg/0.5mg (Moderna) 05/03/2021 documented as of this encounter Social History Tobacco Use Types Packs/Day Years Used Date Smoking Tobacco: Never Smokeless Tobacco: Never Alcohol Use Standard Drinks/Week Comments Never 0 (1 standard drink = 0.6 oz pur e alcohol) AUDIT-C Answer Date Recorded Q1: How often do you have a drink containing alc ohol? Never 05/10/2020 Average Number of Drinks Not on file 020 Frequency of Binge Drinking Not on file 04/19 Sex and Gender Information Value Date Recorded Sex Assigned at Not on file Gender Identity Not on file Sexual Orientation Not on file Job Start Date Occupation Industry Not on file Not on file Not on file documented as of this encounter Functional Status Functional Status Response Date of Assess ment Are you deaf or do you have serious difficulty h earing? No 11/13/2023 Are you blind or do you have serious difficulty seeing, even when wearing glasses? No 11/13/2023 Do you have serious difficul ty walking or climbing stairs? (5 years old or older) Yes 11/13/2023 Do you have difficulty dress ing or bathing? (5 years old or older) Yes 11/13/2023 Because of a physical, menta l, or emotional condition, do you have difficulty doing errands alone such as visiting a doctor s office or shopping? (15 years old or older) No 11/13/19 24 Cognitive Status Response Date of Assessm ent Because of a physical, menta l, or emotional condition, do you have serious difficulty concentrating, remembering, or making decisions? (5 years old or older) Yes 11/13/2023 documented as of this encounter Plan of Treatment Upcoming Encounters Date Type Department Care Team (Latest Contact Info) Description 12/11/2023 11:02 AM EDT Hospital Encounter OR GL, Operating Room, [facility] - 4th Floor [address] [address] Baljit Fernando MD [address] [address] 12/11/2023 11:02 AM EDT - 12/11/2023 11:40 AM EDT Surgery OR [facility], Operating Room, [facility] - 4th Floor [address] [address] Baljit Fernando MD [address] [address] ESOPHAGOGASTRODUODENOSCOPY (EGD), FLEXIBLE, TRANSORAL, DIAGNOSTIC Scheduled Procedures Name Priority Associated Diagnoses Date/Ti md ESOPHAGOGASTRODUODENOSCOPY ( EGD), FLEXIBLE, TRANSORAL, DIAGNOSTIC Pseudocyst of pancreas 12/11/2023 11:02 AM EDT Scheduled Referrals Name Type Priority Associated Diagnoses Orde r Schedule ADULT GASTROENTEROLOGY REFERRAL OP Referral Within 10 days (routine) Chronic pancreatitis (HCC) Loss of weight Ordered: 12/05/2023 Health Maintenance Due Date Last Done Comments DXA Scan 1940 Depression Screening 1952 Albumin/Creatinine Ratio 1958 DTaP,Tdap,and Td Vaccines (1 - Tdap) 1959 Zoster Vaccines (1 of 2) 1990 Pneumococcal Vaccine: 65+ Years (2 of 2 - PCV) 06/24/2020 06/24/2019 COVID-19 Vaccine (4 - season) 2023 05/03/2021, 08/20/2020, 07/23/2020 Influenza Vaccine (FLU shot) (Season Ended) 2024 02/24/2020, 04/02/2018 TSH 11/26/2024 11/27/2023, 06/19, 07/13/2020 GFR 12/01/2024 12/02/2023, 11/16, 11/28/2023, Additional history exists GARDASIL-HPV IMMUNIZATION SERIES Aged Out No longer eligible based on patient's age to complete this topic Hepatitis B Aged Out No longer eligi ble based on patient's age to complete this topic MENINGOCOCCAL (MENACTRA/MENVEO) Aged Out No longer eligible based on patient's age to complete this topic documented as of this encounter Medical Devices Implanted Type Area Geodesist Device Identifier Shelf Expiration Date Model / Serial / Lot Stent [employer] [id number] - [id number] Implanted:Qty: 1 on 11/15/2023 by Baljit Fernando MD at OR [facility] [employer] : ENDOSCOPY [id number] 07/04/2024 [id number] / / [id number] documented as of this encounter Visit Diagnoses Diagnosis Chronic pancreatitis (HCC)- Primary Chronic pancreatitis Loss of weight Pseudocyst of pancreas Cyst and pseudocyst of pancreas documented in this encounter Advance Directives * Full Code (Latest Code Status on File) Date Activated Date Inactivated Comments 11/13/2023 3:31 PM 11/24/2023 6:59 PM This order re flects the patients wishes and were consensually agreed upon. Question Answer Comments Discussion of Advance Directives occurred with: Patient * Full Code Date Activated Date Inactivated Comments 07/13/2020 11:27 AM 07/15/2020 7:12 PM This order reflects the patients wishes and were consensually agreed upon. Care Teams Out Of Town Collection Clerk Relationship Specialty Start Date End Date Ronnie Claudio DO [facility] [address] [address] PCP - General Family Medicine 05/10/20 documented as of this encounter
--- OUTSIDE RECORDS SUMMARY | 2023-12-09 11:06 | External Medical Summary ---
Author Name Unknown Address Unknown Organization K01:LABORATORY [address] - [address] [place] [address] Laboratory Report Ordering Provider Test Date Status BROCK BAUTISTANAIMACARIO 11/27/2023 06:14:22 Final Observation Date Value Abnormality Reference (Units ) Status T4, Free 11/27/2023 06:14:22 1.6 0.9-1.7 (n g/dL) Final Performing Location LABORATORY [facility] - [address] [place] [address]
--- OUTSIDE RECORDS SUMMARY | 2023-12-09 11:06 | External Medical Summary ---
Author Name Unknown Address Unknown Organization [id number]:LABORATORY [facility] - [address] [place] [address] Laboratory Report Ordering Provider Test Date Status RICKIE STEWART 11/24/2023 04:55:00 Final Observation Date Value Abnormality Reference (Units ) Status WBC, Total 11/24/2023 04:55:00 7.66 4.00-10.80 (K/uL) Final RBC 11/24/2023 04:55:00 3.01 3.85-5.15 (M/uL) Final Hemoglobin 11/24/2023 04:55:00 8.9 Below low normal 12.0-15.3 (g/dL) Final HCT 11/24/2023 04:55:00 26.8 Below low normal 36.0-45.2 (%) Final MCV 11/24/2023 04:55:00 89.0 81.5-97.5 (fL) Final MCH 11/24/2023 04:55:00 29.6 27.0-34.0 (pg) Final MCHC 11/24/2023 04:55:00 33.2 32.0-36.0 (g/dL) Final RDW 11/24/2023 04:55:00 16.5 11.5-15.5 (%) Final Platelets 11/24/2023 04:55:00 62 Below low normal 140-400 (K/uL) Final MPV 11/24/2023 04:55:00 11.0 6.6-11.1 (fL) Final Nucleated erythrocytes/100 leukocytes [Ratio] in Blood by Automated count 11/24/2023 04:55:00 0 <=0 (/100 WBCs) Final Performing Location LABORATORY [facility] - [address] [place] [address]
--- OUTSIDE RECORDS SUMMARY | 2023-12-09 11:06 | External Medical Summary ---
Author Name Unknown Address Unknown Organization [id number]:LABORATORY [facility] - [address] [place] [address] Laboratory Report Ordering Provider Test Date Status RICKIE STEWART 11/23/2023 08:26:00 Final Observation Date Value Abnormality Reference (Units ) Status WBC, Total 11/23/2023 08:26:00 6.94 4.00-10.80 (K/uL) Final RBC 11/23/2023 08:26:00 2.82 3.85-5.15 (M/uL) Final Hemoglobin 11/23/2023 08:26:00 8.6 Below low normal 12.0-15.3 (g/dL) Final HCT 11/23/2023 08:26:00 25.4 Below low normal 36.0-45.2 (%) Final MCV 11/23/2023 08:26:00 90.1 81.5-97.5 (fL) Final MCH 11/23/2023 08:26:00 30.5 27.0-34.0 (pg) Final MCHC 11/23/2023 08:26:00 33.9 32.0-36.0 (g/dL) Final RDW 11/23/2023 08:26:00 16.8 11.5-15.5 (%) Final Platelets 11/23/2023 08:26:00 61 Below low normal 140-400 (K/uL) Final MPV 11/23/2023 08:26:00 11.0 6.6-11.1 (fL) Final Nucleated erythrocytes/100 leukocytes [Ratio] in Blood by Automated count 11/23/2023 08:26:00 0 <=0 (/100 WBCs) Final Performing Location LABORATORY [facility] - [address] [place] [address]
--- OUTSIDE RECORDS SUMMARY | 2023-12-09 11:06 | External Medical Summary ---
Author Name Unknown Address Unknown Organization K09:LABORATORY [place] [address] Laboratory Report Ordering Provider Test Date Status JONH MORAN 11/28/2023 06:18:40 Final Observation Date Value Abnormality Reference (Units ) Status BUN 11/28/2023 06:18:40 39 Above high normal 6-20 (mg/dL) Final Creatinine 11/28/2023 06:18:40 1.0 0.5-1.0 (mg/dL) Final Glomerular filtration rate/1.73 sq M.predicted [Volume Rate/Area] in Serum, Plasma or Blood by Creatinine-based formula (CKD-EPI) 11/28/2023 06:18:40 59 Below low normal >=60 (mL/min) Final eGFR is calculated based on the CKD-EPI 2020 equation Sodium 11/28/2023 06:18:40 131 Below low normal 135 -146 (mmol/L) Final Potassium 11/28/2023 06:18:40 3.9 3.5-5.1 (m mol/L) Final Cl 11/28/2023 06:18:40 99 98-107 (mm ol/L) Final CO2 11/28/2023 06:18:40 21 Below low normal 22- 32 (mmol/L) Final Anion gap 11/28/2023 06:18:40 11 7-15 (mmol /L) Final Glucose 11/28/2023 06:18:40 101 70-120 (mg /dL) Final Calcium 11/28/2023 06:18:40 9.0 8.4-10.2 ( mg/dL) Final Performing Location LABORATORY [place] [address]
--- OUTSIDE RECORDS SUMMARY | 2023-12-09 11:06 | External Medical Summary ---
Author Name Unknown Address Unknown Organization K09:[facility]ATORY [place] [address] Laboratory Report Ordering Provider Test Date Status JONH MORAN 11/30/2023 06:55:21 Final Observation Date Value Abnormality Reference (Units ) Status BUN 11/30/2023 06:55:21 29 Above high normal 6-20 (mg/dL) Final Creatinine 11/30/2023 06:55:21 0.9 0.5-1.0 (mg/dL) Final Glomerular filtration rate/1.73 sq M.predicted [Volume Rate/Area] in Serum, Plasma or Blood by Creatinine-based formula (CKD-EPI) 11/30/2023 06:55:21 61 >=60 (mL/min) Final eGFR is calculated based on the CKD-EPI 2020 equation Sodium 11/30/2023 06:55:21 131 Below low normal 135 -146 (mmol/L) Final Potassium 11/30/2023 06:55:21 4.4 3.5-5.1 (m mol/L) Final Cl 11/30/2023 06:55:21 100 98-107 (mm ol/L) Final CO2 11/30/2023 06:55:21 18 Below low normal 22- 32 (mmol/L) Final Anion gap 11/30/2023 06:55:21 13 7-15 (mmol /L) Final Glucose 11/30/2023 06:55:21 91 70-120 (mg /dL) Final Calcium 11/30/2023 06:55:21 9.2 8.4-10.2 ( mg/dL) Final Performing Location [facility]ORY [place] [address]
--- OUTSIDE RECORDS SUMMARY | 2023-12-09 11:06 | External Medical Summary ---
Author Name Unknown Address Unknown Organization K09:LABORATORY [place] [address] Laboratory Report Ordering Provider Test Date Status LILYAPRIL 11/27/2023 06:14:22 Final Observation Date Value Abnormality Reference (Units ) Status Albumin 11/27/2023 06:14:22 2.9 Below low normal 3.8 -5.0 (g/dL) Final Performing Location LABORATORY [place] [address]
--- OUTSIDE RECORDS SUMMARY | 2023-12-09 11:06 | External Medical Summary ---
Author Name Unknown Address Unknown Organization K09:LABORATORY [place] [address] Laboratory Report Ordering Provider Test Date Status JONH MORAN 11/28/2023 06:18:40 Final Observation Date Value Abnormality Reference (Units ) Status WBC, Total 11/28/2023 06:18:40 5.78 4.00-10.8 0 (K/uL) Final RBC 11/28/2023 06:18:40 3.11 3.85-5.15 (M/uL) Final Hemoglobin 11/28/2023 06:18:40 9.1 Below low normal 12 .0-15.3 (g/dL) Final HCT 11/28/2023 06:18:40 28.8 Below low normal 36. 0-45.2 (%) Final MCV 11/28/2023 06:18:40 92.6 81.5-97.5 (fL) Final MCH 11/28/2023 06:18:40 29.3 27.0-34.0 (pg) Final MCHC 11/28/2023 06:18:40 31.6 32.0-36.0 (g/dL) Final RDW 11/28/2023 06:18:40 16.3 11.5-15.5 (%) Final Platelets 11/28/2023 06:18:40 49 Below low normal 140 -400 (K/uL) Final MPV 11/28/2023 06:18:40 11.3 6.6-11.1 ( fL) Final Performing Location LABORATORY [place] [address]
--- OUTSIDE RECORDS SUMMARY | 2023-12-09 11:06 | External Medical Summary ---
Author Name Unknown Address Unknown Organization K1F:LABORATORY [facility] - [address] [place] [address] Laboratory Report Ordering Provider Test Date Status YAMILETH JAMIL 11/24/2023 04:55:00 Final Observation Date Value Abnormality Reference (Units ) Status Phosphate 11/24/2023 04:55:00 2.1 Below low normal 2.5 -4.8 (mg/dL) Final Performing Location LABORATORY [facility] - [address] [place] [address]
--- OUTSIDE RECORDS SUMMARY | 2023-12-09 11:06 | External Medical Summary ---
Author Name Unknown Address Unknown Organization [facility] [address] [place] [address] Laboratory Report Ordering Provider Test Date Status HY,DEPAMPHILIS 11/25/2023 07:49:58 Final Observation Date Value Abnormality Reference (Units ) Status WBC, Total 11/25/2023 07:49:58 7.24 4.00-10.8 0 (K/uL) Final RBC 11/25/2023 07:49:58 2.98 3.85-5.15 (M/uL) Final Hemoglobin 11/25/2023 07:49:58 9.0 Below low normal 12 .0-15.3 (g/dL) Final HCT 11/25/2023 07:49:58 27.2 Below low normal 36. 0-45.2 (%) Final MCV 11/25/2023 07:49:58 91.3 81.5-97.5 (fL) Final MCH 11/25/2023 07:49:58 30.2 27.0-34.0 (pg) Final MCHC 11/25/2023 07:49:58 33.1 32.0-36.0 (g/dL) Final RDW 11/25/2023 07:49:58 16.5 11.5-15.5 (%) Final Platelets 11/25/2023 07:49:58 68 Below low normal 140 -400 (K/uL) Final Results rechecked.
null MPV 11/25/2023 07:49:58 11.9 6.6-11.1 ( fL) Final Performing Location LABORATORY [facility] JESSICA [address] - [address] [place] [address]
--- OUTSIDE RECORDS SUMMARY | 2023-12-09 11:06 | External Medical Summary ---
Author Name Unknown Address Unknown Organization [id number]:[facility] [place] [address] [place] [address] Laboratory Report Ordering Provider Test Date Status BROCK BAUTISTANAIMACARIO 11/27/2023 06:14:22 Final Observation Date Value Abnormality Reference (Units ) Status TSH 11/27/2023 06:14:22 5.92 Above high normal 0. 27-4.20 (uIU/mL) Final Performing Location [facility] [place] [address] [place] [address]
--- OUTSIDE RECORDS SUMMARY | 2023-12-09 11:06 | External Medical Summary | Summary of Care ---
Author Name Unknown Organization [facility] Address [address] [place] [address] Phone [phone] Care Team Providers Care Bereavement Counselor Name Role Phone Ronnie Claudio DO Primary Care Provider + Reason for Visit * Reason Onset Date Comments Test Results 11/29/2023 Encounter Details Date Type Department Care Team (Late st Contact Info) Description 11/29/2023 Telephone Gastroenterology, [facility] [address] [place] [address] Baljit Fernando MD [address] [place] [id number] Test Results Allergies Active Allergy Reactions Criticality Noted Date Comments Sulfamethoxazole-Trimethoprim Nausea/vomiting High 1 documented as of this encounter (statuses as of 11/30/2023) Medications Medication Sig Dispensed Refills Start Date [...] as of this encounter (statuses as of 11/30/2023) Active Problems Problem Noted Date Diagnosed Date [...] as of this encounter (statuses as of 11/30/2023) Resolved Problems Problem Noted Date Diagnosed Date Resolved Date CHRIS (acute kidney injury) 11/21/2023 Gastrointestinal hemorrhage 11/21/2023 11/24/2023 UTI (urinary tract infection) 11/13/2023 11/14/2023 documented as of this encounter (statuses as of 11/30/2023) Immunizations Name Administration Dates Next Due COVID-19 [...] Yes 11/13/2023 documented as of this encounter Miscellaneous Notes * Telephone Encounter - Claudette Negron OSA - 11/29/2023 9:03 PM EDT Hello- The radiologist discovered an unexpected or indeterminate finding on Ally Luna ([id number]) and asks that you review the following report. Study Type:CT ABD/PELVIS W IV CONTRAST - WO ORAL CONTRAST Date of Study: 11/29/2023 IMPRESSION 1. Suboptimal evaluation due to secondary to poor IV access and poor contrast enhancement. 2. Grossly unchanged size of poorly defined collection at the pancreatic tail. 3. Interval removal of pigtail catheter that had previously been traversing the Axios stent. The Axios stent appears to be in stable position, however there is a speckled dense filling defect within the lumen the stent of uncertain etiology/significance. 4. Increased moderate to large volume ascites with some ascitic fluid extending up into the chest through the diaphragmatic hiatus. 5. Single focus of air in the anterior bladder dome, correlate with history of catheterization. 6. Multiple bilateral solid pulmonary nodules scattered throughout the lungs are grossly unchanged from the most recent study but significantly progressed since 05/10/2020. Pulmonary metastases cannot be excluded given history of breast cancer. 7. Additional findings are described above. Please respond to this encounter to acknowledge receipt of this message and take responsibility to ensure this report is reviewed. Thank you, CLINT Merino Client Service [facility] documented in this encounter Plan of Treatment Upcoming Encounters Date Type Department Care Team (Latest Contact Info) Description 12/11/2023 11:02 AM EDT Hospital Encounter OR [facility], Operating Room, [facility] [address] [place] [address] Baljit Fernando MD [address] [place] [address] 12/11/2023 11:02 AM EDT - 12/11/2023 11:40 AM EDT Surgery OR [facility], Operating Room, [address] [place] [address] [place] [address] Baljit Fernando MD [address] [place] [address] ESOPHAGOGASTRODUODENOSCOPY (EGD), FLEXIBLE, TRANSORAL, DIAGNOSTIC Scheduled Procedures Name Priority Associated Diagnoses Date/Ti me ESOPHAGOGASTRODUODENOSCOPY ( EGD), FLEXIBLE, TRANSORAL, DIAGNOSTIC Pseudocyst of pancreas 12/11/2023 11:02 AM EDT Health Maintenance Due Date Last Done Comments [...] 04/02/2018 TSH 11/26/2024 11/27/2023, 06/19, 07/13/2020 GFR 11/29/2024 11/30/2023, 11/16, 11/25/2023, Additional history exists GARDASIL-HPV IMMUNIZATION SERIES Aged Out No longer eligible based on patient's age to complete this topic Hepatitis B Aged Out No longer eligi ble based on patient's age to complete this topic MENINGOCOCCAL (MENACTRA/MENVEO) Aged Out No longer eligible based on patient's age to complete this topic documented as of this encounter Medical Devices Implanted Type Area Features Reporter Device Identifier Shelf Expiration Date Model / Serial / Lot Stent Axios [id number] - [id number] Implanted:Qty: 1 on 11/15/2023 by Baljit Fernando MD at OR [facility] [employer] : ENDOSCOPY [id number] 07/04/2024 [id number] / / [id number] documented as of this encounter Advance Directives * Full Code [...] and were consensually agreed upon. Care Teams Bereavement Counselor Relationship Specialty Start Date End Date Ronnie Claudio DO [place] [id number] PCP - General Family Medicine 05/10/20 documented as of this encounter
--- OUTSIDE RECORDS SUMMARY | 2023-12-09 11:06 | External Medical Summary | Summary of Care ---
Author Name Unknown Organization [facility] Address [address] [place] [address] Phone [phone] Care Team Providers Care Cuff Slitter Name Role Phone GonzálezRonnie cesar Onurmaura Primary Care Provider + Reason for Visit * Auth/Cert Specialty Diagnoses / Procedures Referred By Isai t Referred To Contact Diagnoses Pancreatitis Acute pancreatitis pancratitis Pankaj Steen MD [address] [place] [phone] [address] [facility] [address] [place] [address] Referral ID Status Reason Start Date Expiration Date Visits Re quested Visits Authorized [id number] Encounter Details Date Type Department Care Team (Latest Contact Info) Description 11/13/2023 2:22 PM EDT - 11/24/2023 2:59 PM EDT Hospital Encounter 5A [facility] 5th Floor [address] [place] [address] Pankaj Steen MD [address] [place] [address] Edy Lea DO [address] [place] [address] Carrillo Villanueva [address] [place] [id number] Lo Pearson MD [address] [place] [address] Services [facility] [place] [address] Various: KRAVS,EKG,UEUS,CDIQ DC,UGI Discharge Disposition: IP Rehab Allergies Active Allergy Reactions Criticality Noted Date Comments Sulfamethoxazole-Trimethoprim Nausea/vomiting High 1 documented as of this encounter (statuses as of 11/25/2023) Medications Medication Sig Dispensed Refills Start Date [...] bedtime. Active Carvedilol 12.5 MG Oral Tablet (Coreg)Indicatio ns:SBP > 145 mm Hg Take 1 Tablet by mouth in the morning and 1 Tablet before bedtime. 60 Tablet 11/24/2023 Active Urea 15 GM Oral Packet (Ure-Na) Take 15 g by mouth in the morning and 15 g before bedtime. 60 Packet 11/24/2023 Active LiquaCel Oral Liquid Take 30 mL by mouth in the morning and 30 mL before bedtime. 1800 mL 11/24/2023 4 Active Pravastatin Sodium 10 MG Oral Tablet (PRAVACHOL) Take 1 Tablet by mouth every evening. 4 Discontinued Losartan Potassium 100 MG Oral Tablet (COZAAR) Take 0.5 Tablets by mouth in the morning and 0.5 Tablets before bedtime. Takes 100 mg in the pm with dinner. 4 Discontinued Cranberry 1000 MG Oral Capsule Take 1,000 mg by mouth daily. 4 Discontinued Carvedilol 25 MG Oral Tablet (Coreg)Indicatio ns:SBP > 145 mm Hg Take 1 Tablet by mouth in the morning and 1 Tablet before bedtime. Taking everyday. 4 Discontinued Apixaban 5 MG Oral Tablet (Eliquis) Take 1 Tablet by mouth in the morning and 1 Tablet before bedtime. 180 Tablet 09/07/2021 4 Discontinued Pantoprazole Sodium 40 MG Oral Tablet Delayed Release (Protonix) Take 1 Tablet by mouth daily first thing in the morning. 4 Discontinued Furosemide 40 MG Oral Tablet (Lasix) Take 1 Tablet by mouth in the morning. 4 Discontinued Creon 6000-11246 UNIT Oral Capsule Delayed Release Particles Take 1 Capsule by mouth in the morning and 1 Capsule at noon and 1 Capsule in the evening and 1 Capsule before bedtime. 11/07/2023 4 Discontinued Spironolactone 100 MG Oral Tablet (Aldactone) Take 1 Tablet by mouth in the morning. 4 Discontinued amLODIPine Besylate 5 MG Oral Tablet (Norvasc) Take 1 Tablet by mouth in the morning. 4 Discontinued Clopidogrel Bisulfate 75 MG Oral Tablet (pLAVix) Take 1 Tablet by mouth in the morning. 4 Discontinued Promethazine HCl 25 MG Oral Tablet (Phenergan) Take 1 Tablet by mouth every 6 hours as needed for Nausea. 4 Discontinued Pravastatin Sodium 10 MG Oral Tablet (Pravachol) Take 1 Tablet by mouth every evening. 4 Discontinued Ondansetron HCl 4 MG Oral Tablet (Zofran) Take 1 Tablet by mouth every 8 hours as needed for Nausea. 4 Discontinued documented as of this encounter (statuses as of 11/25/2023) Active Problems Problem Noted Date Diagnosed Date [...] as of this encounter (statuses as of 11/25/2023) Resolved Problems Problem Noted Date Diagnosed Date Resolved Date CHRIS (acute kidney injury) 11/21/2023 Gastrointestinal hemorrhage 11/21/2023 11/24/2023 UTI (urinary tract infection) 11/13/2023 11/14/2023 documented as of this encounter (statuses as of 11/25/2023) Immunizations Name Administration Dates Next Due COVID-19 [...] on file documented as of this encounter Last Filed Vital Signs Vital Sign Reading Time Taken Comments Blood Pressure 120/68 11/24/2023 7:12 AM EDT Pulse 70 11/24/2023 7:33 AM EDT Temperature 36.2 C (97.2 F) 11/24/2023 7:12 AM ED T Respiratory Rate 18 11/24/2023 7:33 AM EDT Oxygen Saturation 99% 11/24/2023 7:33 AM EDT Inhaled Oxygen Concentration - - Weight 96.3 kg (212 lb 6.4 oz) 11/24/2023 6:27 A M EDT Height 165.1 cm (5' 5") 11/14/2023 10:00 AM EDT Body Mass Index 35.35 11/14/2023 10:00 AM EDT documented in this encounter Functional Status Functional Status Response [...] (15 years old or older) No 11/13/19 Cognitive Status Response Date of Assessm ent Because of a physical, menta l, or emotional condition, do you have serious difficulty concentrating, remembering, or making decisions? (5 years old or older) Yes 11/13/2023 documented as of this encounter Discharge Summaries * Pankaj Steen MD - 11/24/2023 12:33 PM EDT Images from the original note were not included. [facility] [address] Admission Date: 11/13/2023 Discharge Date: 11/24/2023 RECOMMENDED TO DO FOR NEXT PROVIDER(S): Routine transition of care management. REASON(S) FOR MEDICATION CHANGE(S): We held Eliquis and Plavix for 1 week DISPOSITION ON DISCHARGE: [facility]hab: [facility] Hospital Problems Diagnosis *Principal Diagnosis - Pseudocyst of pancreas CHRIS (acute kidney injury) (HCC) Gastrointestinal hemorrhage SIADH (syndrome of inappropriate ADH production) (HCC) Acute blood loss anemia Dilutional hyponatremia Anemia associated with nutritional deficiency Malnutrition of moderate degree (HCC) Chronic idiopathic thrombocytopenia (HCC) Sjogren's syndrome (HCC) Acute pancreatitis Weight loss Aphasia as late effect of cerebrovascular accident HTN (hypertension) Resolved Hospital Problems Diagnosis Date Resolved UTI (urinary tract infection) 11/14/2023 ADMISSION HISTORY & PHYSICAL EXAM (focused): PRESENTING PROBLEM: Abdominal pain HPI: Ally Luna, is an 83-year-old female w/PMHx chronic pancreatitis, anxiety, paresthesias, GERD, hypertension, dysphagia, fatigue, atrial tachycardia, artificial valve (on Eliquis), pacemaker, TIA, CVA x 2 2022, Sjogren's, left breast cancer, and anemia who presents today as a transfer from [facility] today for acute pancreatitis with pseudocyst requiring an ERCP. Patient originally went to [facility] because she could not get into the Gastroenterology cleared for 4 months. Patient lives with her and son. Patient reported she has not been able totolerate food and has for several days and has noted weight loss. Patient received PPN while at [facility] due to unable to tolerate clear liquids. Patient was taking Eliquis for her heart valve but that was discontinued at [facility] and Plavix is on hold as of 11/12/23.. No previous history of a DVT or PE. Patient currently has some tenderness in her upper abdomen area. Denies fevers, headaches, chest pain,or diarrhea. Per chart review, patient was recently treated for acute pancreatitis in [facility] in September of 2023. Per chart review, patient has lost 60 lbs of weight loss over the past 6months per family Patient was also treated for UTI proteus, isolated pansensitive and was treated with Rocephin IV and ordered a veronica catheter for urinary incontinence. GI service recommended transferred to tertiary care center for EUS procedure and possible ERCP. Hospital medicine was consulted on and will admit patient medical management and treatment. Subjective Patient's past history, medications, and allergies were reviewed. Objective Physical Exam Most Recent Vital Signs: BP: 101 mmHg/66 mmHg (11/13/23 1424) Pulse: 70 (11/13/23 1424) Temp: 36.22 C (11/13/23 1424) Temp Summary: Temp Min: 36.2 C (97.2 F) Max: 36.2 C (97.2 F) SpO2: 97 % (11/13/23 1424) O2 flow rate: Supplemental O2 Delivery: Room Air, None (11/13/23 1424) Physical Exam Constitutional: General: She is awake. Appearance: Normal appearance. She is not ill-appearing or toxic-appearing. HENT: Head: Normocephalic. Mouth/Throat: Mouth: Mucous membranes are moist. Pharynx: Oropharynx is clear. No oropharyngeal exudate or posterior oropharyngeal erythema. Eyes: Conjunctiva/sclera: Conjunctivae normal. Pupils: Pupils are equal, round, and reactive to light. Cardiovascular: Rate and Rhythm: Normal rate and regular rhythm. Heart sounds: Normal heart sounds, S1 normal and S2 normal. No murmur heard. Pulmonary: Effort: Pulmonary effort is normal. Breath sounds: Normal breath sounds. Abdominal: General: Bowel sounds are normal. There is distension. Palpations: Abdomen is soft. Tenderness: There is generalized abdominal tenderness and tenderness in the right upper quadrant and left upper quadrant. Musculoskeletal: Cervical back: Full passive range of motion without pain, normal range of motion and neck supple. Right lower leg: No edema. Left lower leg: No edema. Skin: General: Skin is warm and dry. Capillary Refill: Capillary refill takes less than 2 seconds. Findings: Ecchymosis present. Neurological: General: No focal deficit present. Mental Status: She is alert. Comments: Right sided weakness. Patient uses a cane/walker to ambulate. Psychiatric: Speech: Speech normal. Behavior: Behavior is cooperative. Assessment and Plan IMPRESSION: Principal Problem: Acute pancreatitis Active Problems: Aortic stenosis Breast cancer (HCC) HTN (hypertension) Abdominal pain, LUQ Aphasia as late effect of cerebrovascular accident Cardiac pacemaker Weight loss UTI (urinary tract infection) Thrombocytopenia (HCC) Resolved Problems: * No resolved hospital problems. * DIFFERENTIAL AND PLAN: -Admit patient to Med/Surg -GI consult for acute pancreatitis with pseudocyst requiring EUS with ERCP with possible stent placement -Keep NPO except meds -IV fluids -CBC,CMP, Mag. phos and PT INR now -Chest x-ray now -EKG now -Hold furosemide and spironolactone at this time due to softer blood pressures -Continue to hold apixaban and and Plavix -Care management consult for discharge planning. HOSPITAL COURSE (focused): Patient transferred from [facility] for acute pancreatitis and pseudocyst. Patient underwent an EUS cysto gastrostomy using a 20 mm axial stent on 11/14. We held the patient's anticoagulation and restarted them on November 19. Unfortunately, the patient passed a large loose black bowel movement. Her anticoagulation was held and she passed another black bowel movement on the morning of November 20. Patient underwent an EGD on November 21 with results listed below. During her stay, patient had some edema with hyponatremia. We consulted Nephrology. Her serum osmolality was 277 with a urine osmolality of 343, urine sodium of 54. Patient also had an CHRIS with her creatinine transitioning from 1.0 on November 18 to 1.4 on November 20. Per Nephrology, patient's hyponatremia is a syndrome of inappropriate ADH. This should respond to urea 15 g twice daily and a 1.5 L fluid restriction. Her CHRIS is likely ischemic ATN secondary to pancreatitis. We decreased the patient'sCoreg to 12.5 mg twice daily and avoided nephrotoxins. Patient's hemoglobin did trend to 6.9 and she required 1 unit packed red blood cells. Per GI, patient will need to be on a low residue diet indefinitely. Due to the hyponatremia Nephrology recommends deferring diuretics for now. We consulted PT/OT and Care management who arranged for transfer to [facility] to continue rehab. Operations & Procedures: EUS 11/15/23 Impression: - A large pseudocyst/WON was seen in the pancreatic tail treated by a 20 mm Axios stent Cystogastrostomy. - Ascites was found on endosonographic examination of the peritoneal cavity. Recommendation: - [facility]. - Perform CT scan (computed tomography) of the abdomen with contrast in 3 weeks to assure resolution of the fluid collection. - Perform an upper GI endoscopy in 4 weeks to remove the Axios stent. - May resume Eliquis/Plavix after 5 days however she is at very high risk for bleeding. - PO ABx for 5 days. - Continue PPI. - Diuretics. EGD 11/22/23 Impression: - Normal upper third of esophagus and middle third of esophagus. - Mild Schatzki ring. - Medium-sized hiatal hernia. - Pre-existing gastric stent, removed. - Pre-existing gastric stent. - Normal examined duodenum. Recommendation: - [facility]. - Full liquid diet today then only a low residue diet thereafter. - Observe patient's clinical course following today's procedure with therapeutic intervention. - may discontinue proton pump inhibitor - hold anticoagulation and antiplatelet agents for 1 week - if rebleeding occurs would recommend a tagged RBC study and referral to a center with Interventional Radiology support Complications: none applicable Significant Lab and Imaging Results: Lab results within last 7 days (see chart for full results) Units 11/24/23 0455 11/23/23 0826 11/22/23 0353 HGB g/dL 8.9* 8.6* 9.1* HCT % 26.8* 25.4* 27.2* WBC K/uL 7.66 6.94 8.18 PLT K/uL 62* 61* 64* Lab results within last 7 days (see chart for full results) Units 11/24/23 0455 11/23/23 0411 11/22/23 0353 Sodium mmol/L 131* 129* 127* Potassium mmol/L 4.1 4.1 4.1 Chloride mmol/L 100 98 96* CO2 mmol/L 18* 18* 19* BUN mg/dL 42* 34* 39* Creatinine mg/dL 0.9 1.0 1.1* Results Pending at Discharge: Lab Results Pending at Discharge: None MEDICATION UPDATES AT DISCHARGE CONTINUE taking these medications but follow up with your Primary Care Physician (PCP). INSTRUCTIONS Albuterol Sulfate 108 (90 Base) MCG/ACT Aepb Notes to patient: Used to open the airways in lung diseases where spasm may cause breathing problems and prevent breathing problems that happen with exercise Inhale 2 Puffs by mouth every 6 hours as needed for Wheezing. Align 4 MG Capsule Notes to patient: Used as a daily probiotic supplement that improves gut digestion with good bacteria to help you maintain digestive balance. Take 1 Capsule by mouth in the morning. Amoxicillin 500 MG Capsule Commonly known as: Amoxil Take 1 Capsule by mouth as needed (Take 4 capsules 1 hour prior to dental appt). Apixaban 5 MG Tablet Commonly known as: Eliquis Notes to patient: Used to treat or prevent clots. Blood Thinner Take 1 Tablet by mouth in the morning and 1 Tablet before bedtime. Asmanex (120 Metered Doses) 220 MCG/INH Aepb Generic drug: Mometasone Furoate Notes to patient: Used for inflammation of the nose and throat, headache, inflammation of the sinuses, bronchitis, and flu infection Inhale 2 Puffs by mouth in the morning and 2 Puffs before bedtime. atorvaSTATin 40 MG Tablet Commonly known as: Lipitor Notes to patient: Used to lower bad cholesterol, lower triglycerides, raise good cholesterol (HDL),and slow the progression of heart disease Take 1 Tablet by mouth at bedtime. B-12 500 MCG Tabs Notes to patient: Supplement Take by mouth 2 times a day . Benzonatate 100 MG Capsule Commonly known as: Tesrima Yin Notes to patient: Used to relieve coughing Take 1 Capsule by mouth 2 times a day as needed for Cough. Biotinex Caps Notes to patient: Supplement Take by mouth 1,000 mcg 2 times a day . busPIRone 5 MG Tablet Commonly known as: Buspar Notes to patient: Used to treat anxiety Take 1 Tablet by mouth in the morning and 1 Tablet before bedtime. Carvedilol 25 MG Tablet Commonly known as: Coreg Notes to patient: Used to treat heart failure (weak heart), high blood pressure, and help heart function after a heart attack Take 1 Tablet by mouth in the morning and 1 Tablet before bedtime. Taking everyday. Citracal Petites/Vitamin D 200-250 MG-UNIT Tabs Generic drug: Calcium Citrate-Vitamin D Notes to patient: Supplement Take 1 Tab by mouth 2 times a day. Coenzyme Q10 100 MG Capsule Notes to patient: Supplement Take 1 Capsule by mouth in the morning. Creon 6000-23308 units Cpep Generic drug: Pancrelipase (Dit-Gooh-Pwht) Notes to patient: Used to help break down food when the pancreas is not working the right way Take 1 Capsule by mouth in the morning and 1 Capsule at noon and 1 Capsule in the evening and 1 Capsule before bedtime. Docusate Sodium 100 MG Tablet Notes to patient: used to treat or prevent occasional constipation, and to reduce pain or rectal damage caused by hard stools or by straining during bowel movements Take 1 Tablet by mouth in the morning. Nelia-C Tablet Notes to patient: Supplement Take by mouth 1 Tablet daily . 500 mg Ferrous Sulfate 325 (65 FE) MG Tablet Commonly known as: Feosol Notes to patient: Used to treat and prevent iron deficiency anemia Take 1 Tablet by mouth daily at noon. Furosemide 40 MG Tablet Commonly known as: Lasix Notes to patient: Used to get rid of extra fluid and treat high blood pressure (Diuretic/water pill) Take 1 Tablet by mouth in the morning. Grapeseed Extract 500-50 MG Caps Notes to patient: Supplement Take by mouth 100 mg 2 times a day . L-Lysine 500 MG Caps Notes to patient: Supplement Take by mouth daily . Levothyroxine Sodium 100 MCG Capsule Commonly known as: Tirosint Notes to patient: Used to add thyroid hormone to the body or manage thyroid cancer Take 1 Capsule by mouth daily first thing in the morning. (at least 30 min prior to breakfast or other meds) LORAzepam 0.5 MG Tablet Commonly known as: Ativan Notes to patient: Used to treat anxiety and seizures Take 1 Tablet by mouth every 12 hours as needed for Anxiety. losartan 100 MG Tablet Commonly known as: Cozaar Notes to patient: Used to treat high blood pressure, protect kidney function in patients with diabetes who have protein loss, and lower the chance of stroke in people with high blood pressure and a heart problem called left ventricular hypertrophy Take 0.5 Tablets by mouth in the morning and 0.5 Tablets before bedtime. Takes 100 mg in the pm with dinner. Lutein 10 MG Tabs Notes to patient: Used to prevent eye diseases, including cataracts and a disease that leads to vision loss in older adults (age-related macular degeneration or AMD). Take by mouth 6 mg daily . Mirtazapine 7.5 MG Tablet Commonly known as: Remeron Take 1 Tablet by mouth at bedtime. montelukast 10 MG Tablet Commonly known as: Singulair Notes to patient: Used to prevent breathing problems that happen with exercise, treat or prevent asthma, and ease allergy signs Take 1 Tablet by mouth daily at noon. Ocuvite Adult 50+ Capsule Notes to patient: used to provide vitamins that are not taken in through the diet. Multivitamins are also used to treat vitamin deficiencies (lack of vitamins) caused by illness, , poor nutrition, digestive disorders, and many other conditions Take 1 Capsule by mouth in the morning. oxybutynin 5 MG Tablet Commonly known as: Ditropan Take 1 Tablet by mouth at bedtime. pantoprazole 40 MG Tbec Commonly known as: Protonix Notes to patient: Used to treat gastroesophageal reflux disease (GERD; acid reflux) and syndromes caused by lots of stomach acid Take 1 Tablet by mouth daily first thing in the morning. Prevagen 10 MG Caps Generic drug: Apoaequorin Notes to patient: Used to improve memory Take by mouth. Takes two in the am Resveratrol 100 MG Caps Notes to patient: Used to help prevent and treat certain types of cancer Take by mouth. Takes two daily Spironolactone 100 MG Tablet Commonly known as: Aldactone Notes to patient: Used to get rid of extra fluid and treat heart failure (weak heart), high blood pressure, high aldosterone levels, and kidney problems Take 1 Tablet by mouth in the morning. Vitamin D3 25 MCG (1000 UT) Caps Notes to patient: Supplement Take by mouth 2 times a day . Zinc 50 MG Capsule Notes to patient: Used to help growth and good health Take 1 Capsule by mouth in the morning. SCHEDULED FOLLOW-UP: Future Appointments Appt Date/Time Provider Department 11/29/2023 12:00 [address]1 [facility] Radiology [facility] Other Information Indwelling Devices: LINES ALL Duration Peripheral Line Lower;Right;Anterior Arm 20 Gauge 10 days Peripheral Line Right;Lower;Posterior Arm 22 Gauge 2 days Vital Signs (last recorded): Most Recent Systolic BP: 120 mmHg (11/24/23711) Most Recent Diastolic BP: 68 mmHg (11/24/23711) Pulse: 70 (11/24/23732) Resp: 18 (11/24/23732) Most Recent Temperature: 36.22 C (11/24/23711) Weight: 96.3 kg (212 lb 6.4 oz) (11/24/23626) SpO2: 99 % (11/24/23732) O2 flow rate: 5 L/MIN (11/22/23 1420) Allergies: Bactrim [sulfamethoxazole-trimethoprim] Activity: as tolerated Diet: Orders Placed This Encounter Procedures Fiber Restricted Diet Code Status: Full Code Condition on Discharge: stable Isolation status: None Cognition: normal HOSPITAL CONSULTS ORDERED: GASTROENTEROLOGY CONSULT IP CARE MANAGEMENT CONSULT IP NUTRITION SERVICES (DIETITIAN) CONSULT IP PARENTERAL NUTRITION SUPPORT (ADULT) CONSULT IP ADULT OCCUPATIONAL THERAPY CONSULT IP ADULT PHYSICAL THERAPY CONSULT IP NEPHROLOGY CONSULT IP REFERRING PHYSICIAN: Ref: JERRELL ALVAREZ[[id number]] [address] [facility] [place] [address] (office) [phone])[phone] PRIMARY CARE PROVIDER: PCP: DO Chandler Suh / [place] [address] (office) [phone] (fax) Note: To contact a physician responsible for this patients hospital care, please call RecordSetter [phone]. I spent a total of 33 minutes coordinating, documenting, and providing care for this patient excluding time spent in the performance of separately billed services. documented in this encounter Discharge Instructions * Discharge Instr - AVS* Pankaj Steen MD - 11/24/2023 12:34 PM EDT Discharge Date: 11/24/2023 The information below provides you with the instructions and the list of medications you need to betaking following discharge from the hospital. If you have any questions, please ask before leaving. If you have questions after leaving, you can reach us at the numbers below. YOUR HOSPITAL PROVIDERS: Discharging Provider: Pankaj Steen MD Provider Department: Hospital Medicine To reach this Provider Sunday through Sunday (8:00 AM to 4:30 PM) for any questions or test results: Call [phone] For after-hours concerns: Call [phone] and have your provider paged, or the provider storage management consultant for the Department of Hospital Medicine paged. Please note, the discharging provider will not be able to provide you with any medications refills.Please discuss these with your primary care provider. Worsening Symptoms: If you have new symptoms, or your symptoms get worse, please contact your Discharge Provider or Primary Care Provider (PCP). If these providers are not available, you can go to your local [facility] or Urgent Care Clinic during their business hours. In an EMERGENCY situation: Call [phone] or go to the nearest emergency room. A BRIEF SUMMARY OF YOUR HOSPITAL STAY: You came to the hospital with: complaint of abd pain Your main diagnosis at discharge was: pancreatitis Operations & Procedures performed: egd and EUS Complications: none significant Inpatient test results that are pending at discharge: none Advance Directive Documented: Advance Directive Does the Patient have an Advance Directive? No YOUR FOLLOW UP APPOINTMENTS: Primary Care Provider Information: PCP: DO Chadnler Suh / [place] [phone] (office) [phone] (fax) You need the following studies in the future: none INSTRUCTIONS: Diet: Orders Placed This Encounter Procedures Fiber Restricted Diet Activity: No restrictions, As tolerated, and As instructed by Physical Therapy Hold eliquis for 1 week Additional Instructions: - Call your primary care physician or seek medical attention if your symptoms worsen. documented in this encounter Progress Notes * Pankaj Steen MD - 11/23/2023 3:29 PM EDT Images from the original note were not included. [facility] [id number] INTERVAL HISTORY: 83-year-old female w/PMHx chronic pancreatitis, anxiety, paresthesias, GERD, hypertension, dysphagia, fatigue, atrial tachycardia, artificial valve (on Eliquis), pacemaker, TIA, CVA x 2 2022, Sjogren's, left breast cancer, and anemia who was transferred from [facility] on November 12for advanced endoscopy due to pancreatitis Patient underwent upper endoscopic ultrasound on November 14: Impression: - A large pseudocyst/WON was seen in the pancreatic tail treated by a 20 mm Axios stent Cystogastrostomy. - Ascites was found on endosonographic examination of the peritoneal cavity. Recommendation: - [facility]. - Perform CT scan (computed tomography) of the abdomen with contrast in 3 weeks to assure resolution of the fluid collection. - Perform an upper GI endoscopy in 4 weeks to remove the Axios stent. - May resume Eliquis/Plavix after 5 days however she is at very high risk for bleeding. - PO ABx for 5 days. - Continue PPI. - Diuretics. Status post CT abdomen and pelvis on November 20 which showed enlargement inflammatory changes of the pancreas, and ascites fluid. There was no bowel obstruction. There was an axial stent between the stomach and a previous pseudocyst. Patient is s/p 1 unit packed red blood cells on November 20 S/p endoscopy 11/22/23 d/t black stools. Impression: - Normal upper third of esophagus and middle third of esophagus. - Mild Schatzki ring. - Medium-sized hiatal hernia. - Pre-existing gastric stent, removed. - Pre-existing gastric stent. - Normal examined duodenum. Recommendation: - [facility]. - Full liquid diet today then only a low residue diet thereafter. - Observe patient's clinical course following today's procedure with therapeutic intervention. - may discontinue proton pump inhibitor - hold anticoagulation and antiplatelet agents for 1 week - if rebleeding occurs would recommend a tagged RBC study and referral to a center with Interventional Radiology support. Objective Physical Exam Most Recent Vital Signs: BP: 114 mmHg/60 mmHg (11/23/23 1423) Pulse: 60 (11/23/231422) Temp: 36 C (11/23/231422) Temp Summary: Temp Min: 36 C (96.8 F) Max: 37.1 C (98.8 F) SpO2: 94 % (11/23/231422) O2 flow rate: 5 L/MIN (11/22/23 1420) Supplemental O2 Delivery: Room Air, None (11/23/231422) Physical Exam Vitals and nursing note reviewed. Exam conducted with a hydrogen plant operations manager present. Constitutional: General: She is not in acute distress. Appearance: Normal appearance. Cardiovascular: Rate and Rhythm: Normal rate and regular rhythm. Pulses: Normal pulses. Heart sounds: Normal heart sounds. No murmur heard. No friction rub. No gallop. Pulmonary: Effort: Pulmonary effort is normal. No respiratory distress. Breath sounds: Normal breath sounds. No wheezing, rhonchi or rales. Abdominal: General: Abdomen is flat. Bowel sounds are normal. Palpations: Abdomen is soft. Musculoskeletal: Right lower le+ Pitting Edema present. Left lower le+ Pitting Edema present. Skin: General: Skin is warm and dry. Capillary Refill: Capillary refill takes less than 2 seconds. Neurological: Mental Status: She is alert. Comments: Expressive aphasia Psychiatric: Mood and Affect: Affect is flat. Peripheral Line Lower;Right;Anterior Arm 20 Gauge (Active) Number of days: 10 Peripheral Line Right;Lower;Posterior Arm 22 Gauge (Active) Number of days: 2 STUDIES: Encounter Orders Labs and other studies reviewed with pertinent findings noted below: Lab results within last 7 days (see chart for full results) Units 11/23/23 0826 11/22/23 0353 11/21/23 1747 11/21/23 0349 HGB g/dL 8.6* 9.1* 9.2* 6.9* HCT % 25.4* 27.2* 27.2* 20.6* WBC K/uL 6.94 8.18 -- 6.60 PLT K/uL 61* 64* -- 51* Lab results within last 7 days (see chart for full results) Units 11/23/23 0411 11/22/23 0353 11/21/23 0348 Sodium mmol/L 129* 127* 125* Potassium mmol/L 4.1 4.1 4.5 Chloride mmol/L 98 96* 96* CO2 mmol/L 18* 19* 21* BUN mg/dL 34* 39* 36* Creatinine mg/dL 1.0 1.1* 1.4* Assessment and Plan IMPRESSION : Principal Problem: Pseudocyst of pancreas Active Problems: HTN (hypertension) Aphasia as late effect of cerebrovascular accident Weight loss Acute pancreatitis Malnutrition of moderate degree (HCC) Chronic idiopathic thrombocytopenia (HCC) Sjogren's syndrome (HCC) Dilutional hyponatremia Anemia associated with nutritional deficiency CHRIS (acute kidney injury) (HCC) Gastrointestinal hemorrhage SIADH (syndrome of inappropriate ADH production) (HCC) Acute blood loss anemia Resolved Problems: UTI (urinary tract infection) I have examined the patient and consistent with the dietitian's findings found malnutrition presentof Moderate (11/22/23 1247) degree. This is consistent with such due to Fat loss;Muscle loss;Inadequate energy intake (11/22/23 1247). I have also reviewed and agree with the dietitian's plan of carewhich include Continued oral nutrition supplement (11/22/23 1247). DIFFERENTIAL AND PLAN: 83-year-old female w/PMHx chronic pancreatitis, anxiety, paresthesias, GERD, hypertension, dysphagia, fatigue, atrial tachycardia, artificial valve (on Eliquis), pacemaker, TIA, CVA x 2 2022, Sjogren's, left breast cancer, and anemia who was transferred from [facility] on November 12for advanced endoscopy due to pancreatitis S/p EGD Case discussed with gi Low residue diet indefinitely D/c ppi drip Hold plavix and eliquis for one week Follow hg, transfuse hg less than 7 Case discussed with nephro Per Nephrology, hyponatremia is likely SIADH Continue urea 15 g twice daily Fluid restriction 1.5 L daily Hold off on diuretics CHRIS is likely ischemic ATN in setting of pancreatitis Continue Coreg at 12.5 mg twice daily Cont current meds Carvedilol (Coreg) tab 12.5 mg Pantoprazole (Protonix) 80 mg in NSS 500 mL INFUSION Sucralfate (Carafate) susp 1,000 mg Urea (Ure-Na) powder packet 15 g LiquaCel metoclopramide (Reglan) tab 5 mg melatonin tab 3 mg HYDROmorphone (Dilaudid) tab 2 mg Mirtazapine (Remeron) tab 7.5 mg senna-docusate (Senokot-S) 1 Tablet Acetaminophen (Tylenol) tab 650 mg atorvaSTATin (Lipitor) tab 40 mg Benzonatate (Tessalon Perles) cap 100 mg busPIRone (Buspar) tab 5 mg Ferrous Sulfate (Feosol) tab 325 mg Fluticasone (Flovent HFA) 220 MCG/ACT inhaler 2 Puff levothyroxine (Levoxyl) tab 100 mcg LORAzepam (Ativan) tab 0.5 mg montelukast (Singulair) tab 10 mg ondansetron (Zofran) inj 4 mg oxybutynin (Ditropan) tab 5 mg PHARMACOLOGIC VTE PROPHYLAXIS: Apixaban CODE STATUS: Full Code EXPECTED DISCHARGE DATE: 11/24/2023 I spent a total of 52 minutes coordinating, documenting, and providing care for this patient excluding time spent in the performance of separately billed services. * Pankaj Steen MD - 11/22/2023 7:47 AM EDT Images from the original note were not included. [facility] 5A-5109/W INTERVAL HISTORY: 83-year-old female w/PMHx chronic pancreatitis, anxiety, paresthesias, GERD, hypertension, dysphagia, fatigue, atrial tachycardia, artificial valve (on Eliquis), pacemaker, TIA, CVA x 2 2022, Sjogren's, left breast cancer, and anemia who was transferred from [facility] on November 12for advanced endoscopy due to pancreatitis Patient underwent upper endoscopic ultrasound on November 14: Impression: - A large pseudocyst/WON was seen in the pancreatic tail treated by a 20 mm Axios stent Cystogastrostomy. - Ascites was found on endosonographic examination of the peritoneal cavity. Recommendation: - [facility] care. - Perform CT scan (computed tomography) of the abdomen with contrast in 3 weeks to assure resolution of the fluid collection. - Perform an upper GI endoscopy in 4 weeks to remove the Axios stent. - May resume Eliquis/Plavix after 5 days however she is at very high risk for bleeding. - PO ABx for 5 days. - Continue PPI. - Diuretics. Status post CT abdomen and pelvis on November 20 which showed enlargement inflammatory changes of the pancreas, and ascites fluid. There was no bowel obstruction. There was an axial stent between the stomach and a previous pseudocyst. Patient is s/p 1 unit packed red blood cells on November 20 Patient scheduled for endoscopy today due to loose black stools yesterday. Patient is on Eliquis and Plavix Platelets 64 and close to prior values. Stable anemia after transfusion. Sodium 127. BUN of 39, creatinine 1.1 Objective Physical Exam Most Recent Vital Signs: BP: 124 mmHg/83 mmHg (11/22/23723) Pulse: 94 (11/22/23723) Temp: 36.61 C (11/22/23723) Temp Summary: Temp Min: 36.1 C (97 F) Max: 36.7 C (98.1 F) SpO2: 100 % (11/22/23723) O2 flow rate: 6 L/MIN (11/15/23 1615) Supplemental O2 Delivery: Room Air, None (11/22/23723) Physical Exam Vitals and nursing note reviewed. Exam conducted with a hydrogen plant operations manager present. Constitutional: General: She is not in acute distress. Appearance: Normal appearance. Cardiovascular: Rate and Rhythm: Normal rate and regular rhythm. Pulses: Normal pulses. Heart sounds: Normal heart sounds. No murmur heard. No friction rub. No gallop. Pulmonary: Effort: Pulmonary effort is normal. No respiratory distress. Breath sounds: Normal breath sounds. No wheezing, rhonchi or rales. Abdominal: General: Abdomen is flat. Bowel sounds are normal. Palpations: Abdomen is soft. Musculoskeletal: Right lower le+ Pitting Edema present. Left lower le+ Pitting Edema present. Skin: General: Skin is warm and dry. Capillary Refill: Capillary refill takes less than 2 seconds. Neurological: Mental Status: She is alert. Comments: Expressive aphasia Psychiatric: Mood and Affect: Affect is flat. Peripheral Line Lower;Right;Anterior Arm 20 Gauge (Active) Number of days: 9 Peripheral Line Right;Lower;Posterior Arm 22 Gauge (Active) Number of days: 1 STUDIES: Encounter Orders Labs and other studies reviewed with pertinent findings noted below: Lab results within last 7 days (see chart for full results) Units 11/22/23 0353 11/21/23 1747 11/21/23 0349 11/20/23 0655 HGB g/dL 9.1* 9.2* 6.9* 7.9* HCT % 27.2* 27.2* 20.6* 23.2* WBC K/uL 8.18 -- 6.60 7.60 PLT K/uL 64* -- 51* 59* Lab results within last 7 days (see chart for full results) Units 11/22/23 0353 11/21/23 0348 11/20/23 0655 Sodium mmol/L 127* 125* 128* Potassium mmol/L 4.1 4.5 4.6 Chloride mmol/L 96* 96* 95* CO2 mmol/L 19* 21* 21* BUN mg/dL 39* 36* 32* Creatinine mg/dL 1.1* 1.4* 1.3* Assessment and Plan IMPRESSION : Principal Problem: Pseudocyst of pancreas Active Problems: HTN (hypertension) Aphasia as late effect of cerebrovascular accident Weight loss Acute pancreatitis Malnutrition of moderate degree (HCC) Chronic idiopathic thrombocytopenia (HCC) Sjogren's syndrome (HCC) Dilutional hyponatremia Anemia associated with nutritional deficiency CHRIS (acute kidney injury) (HCC) Gastrointestinal hemorrhage SIADH (syndrome of inappropriate ADH production) (HCC) Acute blood loss anemia Resolved Problems: UTI (urinary tract infection) I have examined the patient and consistent with the dietitian's findings found malnutrition presentof Moderate (11/14/23 1006) degree. This is consistent with such due to Fat loss;Muscle loss;Inadequate energy intake (11/14/23 1006). I have also reviewed and agree with the dietitian's plan of carewhich include Monitored NPO/clear liquid status;Initiated parenteral nutrition support (11/14/23 1006). DIFFERENTIAL AND PLAN: 83-year-old female w/PMHx chronic pancreatitis, anxiety, paresthesias, GERD, hypertension, dysphagia, fatigue, atrial tachycardia, artificial valve (on Eliquis), pacemaker, TIA, CVA x 2 2022, Sjogren's, left breast cancer, and anemia who was transferred from [facility] on November 12for advanced endoscopy due to pancreatitis EGD today for likely upper gi bleed/melena after restarting eliquis and plavix. Follow hg, transfuse hg less than 7 Cont ppi drop Hold plavix and AC Per Nephrology, hyponatremia is likely SIADH Continue urea 15 g twice daily Fluid restriction 1.5 L daily CHRIS is likely ischemic ATN in setting of pancreatitis Continue Coreg at 12.5 mg twice daily Cont current meds Carvedilol (Coreg) tab 12.5 mg Pantoprazole (Protonix) 80 mg in NSS 500 mL INFUSION Sucralfate (Carafate) susp 1,000 mg Urea (Ure-Na) powder packet 15 g LiquaCel metoclopramide (Reglan) tab 5 mg melatonin tab 3 mg HYDROmorphone (Dilaudid) tab 2 mg Mirtazapine (Remeron) tab 7.5 mg senna-docusate (Senokot-S) 1 Tablet Acetaminophen (Tylenol) tab 650 mg atorvaSTATin (Lipitor) tab 40 mg Benzonatate (Tessalon Perles) cap 100 mg busPIRone (Buspar) tab 5 mg Ferrous Sulfate (Feosol) tab 325 mg Fluticasone (Flovent HFA) 220 MCG/ACT inhaler 2 Puff levothyroxine (Levoxyl) tab 100 mcg LORAzepam (Ativan) tab 0.5 mg montelukast (Singulair) tab 10 mg ondansetron (Zofran) inj 4 mg oxybutynin (Ditropan) tab 5 mg PHARMACOLOGIC VTE PROPHYLAXIS: Apixaban CODE STATUS: Full Code EXPECTED DISCHARGE DATE: 11/22/2023 I spent a total of 52 minutes coordinating, documenting, and providing care for this patient excluding time spent in the performance of separately billed services. * Rashida Stevenson CRNP - 11/21/2023 2:21 PM EDT Images from the original note were not included. [facility] 5A-5109/W SUMMARY: Patient with PMHX: HTN, aortic stenosis s/p TAVR, nonobstructive CAD, cardiac pacemaker, HTN, Sjogren's, left breast cancer s/p mastectomy, pAF s/p ablation and as listed who was a direct admit from [facility] for pancreatitis and pancreatic pseudocyst in need of ERCP. She had Axios stent placedon 11/14. INTERVAL HISTORY: Patient seen and examined this morning. Tolerating easy to chew diet. Nursing reports two episodes of loose, black stools. One episodes late yesterday and one episode this morning. Her Eliquis and Plavix were re-started yesterday. She denies fever/chills, chest pain, SOB, abdominal pain, N/V Labs reviewed: Na 125 BUN/Cr 36/1.4 (trending up) Hgb/Hct 6.9/20.6 (slightly worse), plt 51 (stable) Objective Physical Exam Most Recent Vital Signs: BP: 100 mmHg/63 mmHg (11/21/23 1356) Pulse: 83 (11/21/23 1356) Temp: 36.28 C (11/21/23 1356) Temp Summary: Temp Min: 36.2 C (97.2 F) Max: 36.6 C (97.9 F) SpO2: 98 % (11/21/23 1356) O2 flow rate: 6 L/MIN (11/15/23 1615) Supplemental O2 Delivery: Room Air, None (11/21/23 1340) General: Pt in bed, alert, chronically ill appearing. Flat affect. Expressive aphasia. Pale. Anasarca appearing. Head: Normocephalic, No masses, lesions, tenderness or abnormalities Eye Exam: PERRLA, EOMI, Conjunctiva are pink and non-injected, sclera clear Ears: External ears normal Oropharynx: mucous membranes moist without erythema or exudates Neck: supple, nontender, no cervical adenopathy palpable Heart: regular rate & rhythm and no murmur appreciated Lungs: no respiratory distress, CTA, without wheeze, rhonchi or crackles Abdomen: + BS, soft, nontender, non distended, no rebound tenderness or guarding Lower Extremities: +1-2 pitting edema from shins to sacral area, no calf tenderness, no stasis changes noted Peripheral Line Lower;Right;Anterior Arm 20 Gauge (Active) Number of days: 8 STUDIES: Encounter Orders Labs and other studies reviewed with pertinent findings noted below: XR ABDOMEN 1 VIEW Final Result PROCEDURE INFORMATION: Exam: XR Abdomen Exam date and time: 11/18/2023 11:55 AM Age: 83 years old Clinical indication: Other: Ileus TECHNIQUE: Imaging protocol: Radiologic exam of the abdomen. Views: Frontal supine view of the abdomen. 1 View. COMPARISON: DX XR CHEST 1 VIEW 11/13/2023 2:47 PM FINDINGS: Gastrointestinal tract: The stool and gas pattern is nonspecific. Intraperitoneal space: There are stents within the left upper quadrant Bones/joints: There is superolateral hip joint space narrowing on the right. There is bone on bone. There is degenerative change at the left hip as well. There is degenerative change in the lumbar spine. There are old pubic fractures on the left IMPRESSION IMPRESSION: Nonspecific stool and gas pattern THIS DOCUMENT HAS BEEN ELECTRONICALLY SIGNED BY CELSA MUNOZ MD [facility] ENDOSCOPIC Final Result This is an imaging study not interpreted or resulted by a [facility] or [facility] contracted radiologist. XR CHEST 1 VIEW Final Result PROCEDURE INFORMATION: Exam: XR Chest Exam date and time: 11/13/2023 2:47 PM Age: 83 years old Clinical indication: Other: Admission; Pre-op; Additional info: Here for ercp TECHNIQUE: Imaging protocol: Radiologic exam of the chest. Views: 1 view. COMPARISON: DX (CXR AP X-CRAIG GRID, CHEST, CXR AP GRID Crosswise) 07/14/2020 5:28 AM FINDINGS: Tubes, catheters and devices: A pacemaker device is present, and its leads are in appropriate position. Lungs: Low lung volumes with atelectatic changes. Chronic changes of the lung parenchyma. Pleural spaces: Unremarkable. No pleural effusion. No pneumothorax. Heart/Mediastinum: TAVR Bones/joints: There are moderate degenerative changes present. IMPRESSION IMPRESSION: Atelectasis and chronic appearing changes of the lung parenchyma. THIS DOCUMENT HAS BEEN ELECTRONICALLY SIGNED BY TI WEAVER MD XR INTRA-OP C-ARM CASE (Results Pending) CT ABD/PELVIS WO IV/ORAL CONTRAST (Results Pending) Results for orders placed or performed during the hospital encounter of 11/13/23 CBC Result Value Ref Range WBC 8.07 4.00 - 10.80 K/uL RBC 3.19 3.85 - 5.15 M/uL HGB 9.5 (L) 12.0 - 15.3 g/dL HCT 29.2 (L) 36.0 - 45.2 % MCV 91.5 81.5 - 97.5 fL MCH 29.8 27.0 - 34.0 pg MCHC 32.5 32.0 - 36.0 g/dL RDW 14.5 11.5 - 15.5 % PLT 73 (L) 140 - 400 K/uL MPV 11.2 6.6 - 11.1 fL nRBCs 0 <=0 /100 WBCs COMPREHENSIVE METABOLIC PANEL Result Value Ref Range BUN 29 (H) 6 - 20 mg/dL Creatinine 0.9 0.5 - 1.0 mg/dL Estimated Glomerular Filtration Rate 63 >=60 mL/min Sodium 134 (L) 135 - 146 mmol/L Potassium 3.9 3.5 - 5.1 mmol/L Chloride 100 98 - 107 mmol/L CO2 23 22 - 32 mmol/L Anion Gap 11 7 - 15 mmol/L Glucose 116 70 - 120 mg/dL Albumin 3.2 (L) 3.8 - 5.0 g/dL AST 24 10 - 35 U/L Alkaline Phosphatase 75 35 - 130 U/L Bilirubin, Total 0.5 <=1.2 mg/dL Calcium 8.2 (L) 8.4 - 10.2 mg/dL Protein 6.0 6.0 - 8.3 g/dL ALT 12 10 - 35 U/L MAGNESIUM Result Value Ref Range Magnesium 2.0 1.5 - 2.6 mg/dL PHOSPHORUS Result Value Ref Range Phosphorus 2.5 2.5 - 4.8 mg/dL APTT Result Value Ref Range aPTT 31 21 - 38 seconds PT INR Result Value Ref Range Prothrombin Time 20.3 (H) 11.6 - 15.2 seconds INR 1.7 (H) 0.8 - 1.2 COMPREHENSIVE METABOLIC PANEL Result Value Ref Range BUN 26 (H) 6 - 20 mg/dL Creatinine 0.9 0.5 - 1.0 mg/dL Estimated Glomerular Filtration Rate 62 >=60 mL/min Sodium 136 135 - 146 mmol/L Potassium 4.0 3.5 - 5.1 mmol/L Chloride 103 98 - 107 mmol/L CO2 21 (L) 22 - 32 mmol/L Anion Gap 12 7 - 15 mmol/L Glucose 106 70 - 120 mg/dL Albumin 2.8 (L) 3.8 - 5.0 g/dL AST 17 10 - 35 U/L Alkaline Phosphatase 68 35 - 130 U/L Bilirubin, Total 0.5 <=1.2 mg/dL Calcium 7.6 (L) 8.4 - 10.2 mg/dL Protein 5.0 (L) 6.0 - 8.3 g/dL ALT 11 10 - 35 U/L CBC Result Value Ref Range WBC 5.87 4.00 - 10.80 K/uL RBC 2.68 3.85 - 5.15 M/uL HGB 8.1 (L) 12.0 - 15.3 g/dL HCT 25.0 (L) 36.0 - 45.2 % MCV 93.3 81.5 - 97.5 fL MCH 30.2 27.0 - 34.0 pg MCHC 32.4 32.0 - 36.0 g/dL RDW 14.8 11.5 - 15.5 % PLT 54 (L) 140 - 400 K/uL MPV 11.6 6.6 - 11.1 fL nRBCs 0 <=0 /100 WBCs MAGNESIUM Result Value Ref Range Magnesium 2.2 1.5 - 2.6 mg/dL PHOSPHORUS Result Value Ref Range Phosphorus 2.6 2.5 - 4.8 mg/dL BASIC METABOLIC PANEL Result Value Ref Range BUN 23 (H) 6 - 20 mg/dL Creatinine 0.9 0.5 - 1.0 mg/dL Estimated Glomerular Filtration Rate 65 >=60 mL/min Sodium 135 135 - 146 mmol/L Potassium 4.2 3.5 - 5.1 mmol/L Chloride 102 98 - 107 mmol/L CO2 25 22 - 32 mmol/L Anion Gap 8 7 - 15 mmol/L Glucose 122 (H) 70 - 120 mg/dL Calcium 8.1 (L) 8.4 - 10.2 mg/dL PHOSPHORUS Result Value Ref Range Phosphorus 2.7 2.5 - 4.8 mg/dL MAGNESIUM Result Value Ref Range Magnesium 2.3 1.5 - 2.6 mg/dL CALCIUM, IONIZED Result Value Ref Range Calcium, Ionized 1.16 1.13 - 1.32 mmol/L CBC Result Value Ref Range WBC 5.46 4.00 - 10.80 K/uL RBC 2.62 3.85 - 5.15 M/uL HGB 7.9 (L) 12.0 - 15.3 g/dL HCT 24.2 (L) 36.0 - 45.2 % MCV 92.4 81.5 - 97.5 fL MCH 30.2 27.0 - 34.0 pg MCHC 32.6 32.0 - 36.0 g/dL RDW 14.7 11.5 - 15.5 % PLT 52 (L) 140 - 400 K/uL MPV 11.7 6.6 - 11.1 fL nRBCs 0 <=0 /100 WBCs DIFFERENTIAL, AUTOMATED Result Value Ref Range WBC 5.46 4.00 - 10.80 K/uL Neutrophils % 77.7 (H) 40.0 - 75.0 % Lymphocytes % 8.4 (L) 18.0 - 42.0 % Monocytes % 10.3 1.0 - 11.0 % Eosinophils % 2.7 0.0 - 6.0 % Basophils % 0.4 0.0 - 2.0 % Immature Granulocytes % 0.5 0.0 - 2.0 % Absolute Neutrophils 4.24 1.80 - 7.70 K/uL Absolute Lymphocytes 0.46 (L) 1.00 - 4.80 K/ul Absolute Monocytes 0.56 0.00 - 1.10 K/uL Absolute Eosinophils 0.15 0.00 - 0.70 K/uL Absolute Basophils 0.02 0.00 - 0.20 K/uL Absolute Immature Granulocytes 0.03 0.00 - 0.20 K/uL BASIC METABOLIC PANEL Result Value Ref Range BUN 22 (H) 6 - 20 mg/dL Creatinine 0.8 0.5 - 1.0 mg/dL Estimated Glomerular Filtration Rate 73 >=60 mL/min Sodium 131 (L) 135 - 146 mmol/L Potassium 4.8 3.5 - 5.1 mmol/L Chloride 101 98 - 107 mmol/L CO2 22 22 - 32 mmol/L Anion Gap 8 7 - 15 mmol/L Glucose 152 (H) 70 - 120 mg/dL Calcium 8.2 (L) 8.4 - 10.2 mg/dL PHOSPHORUS Result Value Ref Range Phosphorus 3.0 2.5 - 4.8 mg/dL MAGNESIUM Result Value Ref Range Magnesium 2.4 1.5 - 2.6 mg/dL CBC Result Value Ref Range WBC 5.24 4.00 - 10.80 K/uL RBC 2.73 3.85 - 5.15 M/uL HGB 8.2 (L) 12.0 - 15.3 g/dL HCT 25.4 (L) 36.0 - 45.2 % MCV 93.0 81.5 - 97.5 fL MCH 30.0 27.0 - 34.0 pg MCHC 32.3 32.0 - 36.0 g/dL RDW 14.7 11.5 - 15.5 % PLT 57 (L) 140 - 400 K/uL MPV 11.9 6.6 - 11.1 fL nRBCs 0 <=0 /100 WBCs BASIC METABOLIC PANEL Result Value Ref Range BUN 29 (H) 6 - 20 mg/dL Creatinine 0.9 0.5 - 1.0 mg/dL Estimated Glomerular Filtration Rate 63 >=60 mL/min Sodium 130 (L) 135 - 146 mmol/L Potassium 5.0 3.5 - 5.1 mmol/L Chloride 96 (L) 98 - 107 mmol/L CO2 21 (L) 22 - 32 mmol/L Anion Gap 13 7 - 15 mmol/L Glucose 114 70 - 120 mg/dL Calcium 8.1 (L) 8.4 - 10.2 mg/dL PHOSPHORUS Result Value Ref Range Phosphorus 3.6 2.5 - 4.8 mg/dL MAGNESIUM Result Value Ref Range Magnesium 2.4 1.5 - 2.6 mg/dL BASIC METABOLIC PANEL Result Value Ref Range BUN 31 (H) 6 - 20 mg/dL Creatinine 0.9 0.5 - 1.0 mg/dL Estimated Glomerular Filtration Rate 60 >=60 mL/min Sodium 129 (L) 135 - 146 mmol/L Potassium 4.6 3.5 - 5.1 mmol/L Chloride 96 (L) 98 - 107 mmol/L CO2 22 22 - 32 mmol/L Anion Gap 11 7 - 15 mmol/L Glucose 115 70 - 120 mg/dL Calcium 8.4 8.4 - 10.2 mg/dL PHOSPHORUS Result Value Ref Range Phosphorus 4.0 2.5 - 4.8 mg/dL MAGNESIUM Result Value Ref Range Magnesium 2.1 1.5 - 2.6 mg/dL CBC Result Value Ref Range WBC 7.47 4.00 - 10.80 K/uL RBC 2.38 3.85 - 5.15 M/uL HGB 7.4 (L) 12.0 - 15.3 g/dL HCT 21.8 (L) 36.0 - 45.2 % MCV 91.6 81.5 - 97.5 fL MCH 31.1 27.0 - 34.0 pg MCHC 33.9 32.0 - 36.0 g/dL RDW 15.3 11.5 - 15.5 % PLT 52 (L) 140 - 400 K/uL MPV 11.4 6.6 - 11.1 fL nRBCs 0 <=0 /100 WBCs BASIC METABOLIC PANEL Result Value Ref Range BUN 29 (H) 6 - 20 mg/dL Creatinine 1.0 0.5 - 1.0 mg/dL Estimated Glomerular Filtration Rate 55 (L) >=60 mL/min Sodium 128 (L) 135 - 146 mmol/L Potassium 4.8 3.5 - 5.1 mmol/L Chloride 96 (L) 98 - 107 mmol/L CO2 20 (L) 22 - 32 mmol/L Anion Gap 12 7 - 15 mmol/L Glucose 116 70 - 120 mg/dL Calcium 8.4 8.4 - 10.2 mg/dL PHOSPHORUS Result Value Ref Range Phosphorus 4.4 2.5 - 4.8 mg/dL MAGNESIUM Result Value Ref Range Magnesium 2.1 1.5 - 2.6 mg/dL CBC Result Value Ref Range WBC 6.22 4.00 - 10.80 K/uL RBC 2.33 3.85 - 5.15 M/uL HGB 7.1 (L) 12.0 - 15.3 g/dL HCT 21.3 (L) 36.0 - 45.2 % MCV 91.4 81.5 - 97.5 fL MCH 30.5 27.0 - 34.0 pg MCHC 33.3 32.0 - 36.0 g/dL RDW 15.1 11.5 - 15.5 % PLT 46 (L) 140 - 400 K/uL MPV 11.2 6.6 - 11.1 fL nRBCs 0 <=0 /100 WBCs OSMOLALITY, SERUM Result Value Ref Range Osmolality, Serum 277 (L) 278 - 305 mOsm/kg OSMOLALITY, URINE Result Value Ref Range Osmolality, Urine 343 50 - 1,200 mOsm/kg SODIUM, RANDOM URINE Result Value Ref Range Sodium, Random Urine 54 mmol/L ALBUMIN Result Value Ref Range Albumin 2.5 (L) 3.8 - 5.0 g/dL PROTEIN Result Value Ref Range Protein 4.7 (L) 6.0 - 8.3 g/dL IRON SCREEN, INCLUDING TIBC Result Value Ref Range Iron 30 (L) 33 - 151 ug/dL Iron Binding Capacity 164 (L) 250 - 425 ug/dL Transferrin Saturation Percent 18 15 - 55 % RETICULOCYTE PANEL Result Value Ref Range Reticulocyte Percent 4.10 (H) 0.80 - 1.90 % Absolute Reticulocyte 94.3 31.3 - 100.1 K/uL Immature Reticuloctye Fraction 23.6 (H) 2.5 - 20.6 % Reticulocyte Hemoglobin 30.7 29.7 - 37.4 pg VITAMIN B12 Result Value Ref Range Vitamin B12 617 232 - 1,245 pg/mL FOLIC ACID Result Value Ref Range Folic Acid 13.4 >4.5 ng/mL BASIC METABOLIC PANEL Result Value Ref Range BUN 32 (H) 6 - 20 mg/dL Creatinine 1.3 (H) 0.5 - 1.0 mg/dL Estimated Glomerular Filtration Rate 42 (L) >=60 mL/min Sodium 128 (L) 135 - 146 mmol/L Potassium 4.6 3.5 - 5.1 mmol/L Chloride 95 (L) 98 - 107 mmol/L CO2 21 (L) 22 - 32 mmol/L Anion Gap 12 7 - 15 mmol/L Glucose 103 70 - 120 mg/dL Calcium 8.3 (L) 8.4 - 10.2 mg/dL PHOSPHORUS Result Value Ref Range Phosphorus 3.6 2.5 - 4.8 mg/dL MAGNESIUM Result Value Ref Range Magnesium 1.9 1.5 - 2.6 mg/dL CBC Result Value Ref Range WBC 7.60 4.00 - 10.80 K/uL RBC 2.53 3.85 - 5.15 M/uL HGB 7.9 (L) 12.0 - 15.3 g/dL HCT 23.2 (L) 36.0 - 45.2 % MCV 91.7 81.5 - 97.5 fL MCH 31.2 27.0 - 34.0 pg MCHC 34.1 32.0 - 36.0 g/dL RDW 15.6 11.5 - 15.5 % PLT 59 (L) 140 - 400 K/uL MPV 11.1 6.6 - 11.1 fL nRBCs 0 <=0 /100 WBCs PHOSPHORUS Result Value Ref Range Phosphorus 3.1 2.5 - 4.8 mg/dL MAGNESIUM Result Value Ref Range Magnesium 1.9 1.5 - 2.6 mg/dL CBC Result Value Ref Range WBC 6.60 4.00 - 10.80 K/uL RBC 2.26 3.85 - 5.15 M/uL HGB 6.9 (L) 12.0 - 15.3 g/dL HCT 20.6 (L) 36.0 - 45.2 % MCV 91.2 81.5 - 97.5 fL MCH 30.5 27.0 - 34.0 pg MCHC 33.5 32.0 - 36.0 g/dL RDW 15.6 11.5 - 15.5 % PLT 51 (L) 140 - 400 K/uL MPV 10.6 6.6 - 11.1 fL nRBCs 0 <=0 /100 WBCs COMPREHENSIVE METABOLIC PANEL Result Value Ref Range BUN 36 (H) 6 - 20 mg/dL Creatinine 1.4 (H) 0.5 - 1.0 mg/dL Estimated Glomerular Filtration Rate 38 (L) >=60 mL/min Sodium 125 (L) 135 - 146 mmol/L Potassium 4.5 3.5 - 5.1 mmol/L Chloride 96 (L) 98 - 107 mmol/L CO2 21 (L) 22 - 32 mmol/L Anion Gap 8 7 - 15 mmol/L Glucose 104 70 - 120 mg/dL Albumin 2.6 (L) 3.8 - 5.0 g/dL AST 21 10 - 35 U/L Alkaline Phosphatase 61 35 - 130 U/L Bilirubin, Total 0.5 <=1.2 mg/dL Calcium 7.8 (L) 8.4 - 10.2 mg/dL Protein 4.6 (L) 6.0 - 8.3 g/dL ALT 12 10 - 35 U/L BILIRUBIN, DIRECT Result Value Ref Range Bilirubin, Direct <0.2 0.0 - 0.3 mg/dL TYPE AND SCREEN Result Value Ref Range ABO A Rh Positive Red Blood Cell Antibody Screen Negative Specimen Expiration Date 11/24/2023 23:59 *Note: Due to a large number of results and/or encounters for the requested time period, some results have not been displayed. A complete set of results can be found in Results Review. Assessment and Plan IMPRESSION/PLAN OF CARE : Principal Problem: Pseudocyst of pancreas Active Problems: HTN (hypertension) Aphasia as late effect of cerebrovascular accident Weight loss Acute pancreatitis Malnutrition of moderate degree (HCC) Chronic idiopathic thrombocytopenia (HCC) Ileus (HCC) Sjogren's syndrome (HCC) Dilutional hyponatremia Anemia associated with nutritional deficiency Resolved Problems: UTI (urinary tract infection) Will re-consult GI regarding black stools as she is at higher risk of bleeding, and noted to have aslight drop in Hgb and elevated BUN/Cr on today's labs. Stop Eliquis and Plavix. Transfuse 1 unit PRBC's. Trend hgb/hct and transfuse as warranted to Hgb < 7 GI recommends NPO, PPI gtt and CT abd/pelvis (preferably with IV contrast) but will reach out to Nephrology d/t rising Cr. Pending EGD tomorrow Nephrology consult for persistent HypoNa and rising Cr. Anasarca appearing. Unable to receive IV contrast. Suspected SIADH- start Urea packets. Fluid restrict. Trend kidney function and Na. Avoid nephrotoxic agents. Will order CT abd/pelvis non contrast - to rule out any evidence of bleeding. Per GI, if bleeding in the cyst cavity she should be transferred to [facility] for IR BP's have been borderline. Reduce Coreg to 12.5 mg BID I&O's Daily weights Hold POLYSOMNOGRAPH TECH diuretics PT/OT. Encourage OOB CM on board. Patient will need SNF at discharge. I have examined the patient and consistent with the dietitian's findings found malnutrition presentof Moderate (11/14/23 1006) degree. This is consistent with such due to Fat loss;Muscle loss;Inadequate energy intake (11/14/23 1006). I have also reviewed and agree with the dietitian's plan of carewhich include Monitored NPO/clear liquid status;Initiated parenteral nutrition support (11/14/23 1006). PHARMACOLOGIC VTE PROPHYLAXIS: SCD's CODE STATUS: Full Code EXPECTED DISCHARGE DATE: 11/22/2023 Patient's case and plan of care discussed with my attending, Dr. Lea. I spent a total of 60 minutes coordinating, documenting, and providing care for this patient excluding time spent in the performance of separately billed services. Associated attestation - Edy Lea DO - 11/21/2023 2:48 PM EDT I have reviewed the advanced practitioner's documentation on the date of service referenced in note, and I agree with, and take responsibility for the plan of care. I spent a total of 20 minutes coordinating, documenting, and providing care for this patient excluding time spent in the performance of separately billed services or time spent by another provider/QHP. Patient seen and evaluated, she actually does not have any new complaints. Seemed to be tolerating her diet. Agreeable to blood transfusion. Extensive discussion and review with Graham about plan of care as outlined below. Communications with GI and Nephrology noted. Follow up on CT scan * Margaret Shah, - 11/21/2023 12:07 PM EDT PROGRESS NOTE - Gastroenterology Service [facility] [id number] Name: Ally Luna Location: [facility] [id number]-[id number]/W Date: 11/21/2023 Time: 12:08 PM SUBJECTIVE: The patient was seen and examined, chart reviewed. 83 yr old female w Sjogren's, HTN, Aortic stenosis, artificial heart valve/on chronic anticoagulation with Plavix/Eliquis, s/p pacer placement, CVA with resultant aphasia, left breast cancer transferred here on 11/12 from [facility] w acute pancreatitis and pseudocyst. Underwent cystogastrostomy using a 20 mm Axios stent on 11/14. When Eliquis/Plavix were restarted yesterday, passed a loose black BM. There were held, not receiving any today. Passed a second loose black BM this morning. + fluid retention/anasarca worsening today. Hb was low 7's, toady 6.9. BUN 29 but creatinine also increasing similarly. She is comfortable. No N/V. No abd pain. BP 107/62, HR stable 74. Nephrology consulted. Past Medical History: Diagnosis Date Aortic stenosis History of left breast cancer HTN (hypertension) Sjogren's disease (HCC) ROS: Constitutional: No report of fever, chills or sweats Skin: No jaundice or rashes. Cardiac: (+) edema; no CP or SOB Pulmonary: No cough or shortness of breath GI: Per HPI, otherwise negative. OBJECTIVE: Vital Signs Last 24 Hours: Systolic BP: Most Recent Systolic BP Av.5 mmHg Min: 99 mmHg Max: 107 mmHg Temperature: Most Recent Temperature Av.5 C Min: 36.39 C Max: 36.61 C Pulse: Pulse Av.5 Min: 74 Max: 91 Respirations: Resp Av Min: 16 Max: 18 SpO2: SpO2 Av % Min: 96 % Max: 98 % Constitutional: No acute distress. HEENT: No conjunctival pallor, sclera anicteric. CV: RRR, + click of mechanical valve, no murmurs, + marked bilat leg edema to thighs, moderate edema of the lower arms, some abd edema. Chest: few crackles at both bases, no wheezes, no respiratory effort or O2 needs. GI: Abdomen is soft, non-tender and bowel sounds normal. Extremities: no edema, no clubbing, anasarca Neurology: Awake and alert. Oriented to person, place, and time. No asterixis present. LABS: Labs reviewed as indicated below: WBC 6, Hb 6.9, Hct 20, Plts 51,Na 125, K 4.5, Cl 96, CO2 21, BUN 36, Cr 1.4, glucoase 104. T Bili 0.5, C Bili 0.2, AST 21, ALT 12, Alk Phos 61. IMAGING: EUS : - A large pseudocyst/WON was seen in the pancreatic tail treated by a 20 mm Axios stent Cystogastrostomy. - Ascites was found on endosonographic examination of the peritoneal cavity. IMPRESSION: 5 days post EUS w Axios stent placement form a pancreas pseudocyst to the stomach. Anticoagulation restarted yesterday - passed black loose BM yesterday, anticoagulation held - not receiving today. Passed a second loose black BM this morning. Also developing anasarca. Decrease in Hb may be dilutional vs a significant GI bleed. RECOMMENDATIONS: Appreciate nephrology input regarding increasing BUN/Creatinine and developing anasarca. Begin a PPI drip, carafate, careful monitoring of BP, HR, stool outputs. Suggest CTA abd/pelvis to verify no significant GI bleeding and no hematoma though unlikely. If unable to complete due to worsening renal status then non contrast CT - discussed w hospitalist. Will defer to hospitalist to order after discussing w nephrology. She has significant ascites on exam. There was ascites noted on EUS. Consider paracentesis w fluid analysis for origin of fluid and to r/o SBP. Though no mention of cirrhosis on prior records (reviewed those available in the [facility] system as well), would question cirrhosis as has low platelets and ascites. She apparently gets most of her care in the [place] area. I have discussed the case with my attending, Dr Shah. CT suggested (awaiting) Tagged RBC study * Rashida Stevenson CRNP - 11/20/2023 9:00 AM EDT Images from the original note were not included. [facility] 5A-5109/W SUMMARY: Patient with PMHX: HTN, aortic stenosis s/p TAVR, nonobstructive CAD, cardiac pacemaker, HTN, Sjogren's, left breast cancer s/p mastectomy, pAF s/p ablation and as listed who was a direct admit from [facility] for pancreatitis and pancreatic pseudocyst in need of ERCP. She had Axios stent placedon 11/14. INTERVAL HISTORY: Patient seen and examined this morning. Tolerating full liquid diet. She denies abdominal pain, N or V. Moved her bowels yesterday. Labs reviewed: Na 128 BUN/Cr 32/1.3 (up from 1.0 yesterday) Stable chronic anemia. Stable chronic thrombocytopenia. Objective Physical Exam Most Recent Vital Signs: BP: 97 mmHg/58 mmHg (11/20/23724) Pulse: 85 (11/20/23 0819) Temp: 36.11 C (11/20/23724) Temp Summary: Temp Min: 36.1 C (97 F) Max: 36.6 C (97.9 F) SpO2: 98 % (11/20/23 08) O2 flow rate: 6 L/MIN (11/15/23 1615) Supplemental O2 Delivery: Room Air, None (11/20/23818) General: Pt in bed, alert, chronically ill appearing. Flat affect. Expressive aphasia. Head: Normocephalic, No masses, lesions, tenderness or abnormalities Eye Exam: PERRLA, EOMI, Conjunctiva are pink and non-injected, sclera clear Ears: External ears normal Oropharynx: mucous membranes moist without erythema or exudates Neck: supple, nontender, no cervical adenopathy palpable Heart: regular rate & rhythm and no murmur appreciated Lungs: no respiratory distress, CTA, without wheeze, rhonchi or crackles Abdomen: + BS, soft, nontender, non distended, no rebound tenderness or guarding Lower Extremities: +2 pitting edema to sacral area, no calf tenderness, no stasis changes noted Peripheral Line Lower;Right;Anterior Arm 20 Gauge (Active) Number of days: 7 STUDIES: Encounter Orders Labs and other studies reviewed with pertinent findings noted below: XR ABDOMEN 1 VIEW Final Result PROCEDURE INFORMATION: Exam: XR Abdomen Exam date and time: 11/18/2023 11:55 AM Age: 83 years old Clinical indication: Other: Ileus TECHNIQUE: Imaging protocol: Radiologic exam of the abdomen. Views: Frontal supine view of the abdomen. 1 View. COMPARISON: DX XR CHEST 1 VIEW 11/13/2023 2:47 PM FINDINGS: Gastrointestinal tract: The stool and gas pattern is nonspecific. Intraperitoneal space: There are stents within the left upper quadrant Bones/joints: There is superolateral hip joint space narrowing on the right. There is bone on bone. There is degenerative change at the left hip as well. There is degenerative change in the lumbar spine. There are old pubic fractures on the left IMPRESSION IMPRESSION: Nonspecific stool and gas pattern THIS DOCUMENT HAS BEEN ELECTRONICALLY SIGNED BY CELSA MUNOZ MD US ENDOSCOPIC Final Result This is an imaging study not interpreted or resulted by a [facility] or [facility] contracted radiologist. XR CHEST 1 VIEW Final Result PROCEDURE INFORMATION: Exam: XR Chest Exam date and time: 11/13/2023 2:47 PM Age: 83 years old Clinical indication: Other: Admission; Pre-op; Additional info: Here for ercp TECHNIQUE: Imaging protocol: Radiologic exam of the chest. Views: 1 view. COMPARISON: DX (CXR AP X-CRAIG GRID, CHEST, CXR AP GRID Crosswise) 07/14/2020 5:28 AM FINDINGS: Tubes, catheters and devices: A pacemaker device is present, and its leads are in appropriate position. Lungs: Low lung volumes with atelectatic changes. Chronic changes of the lung parenchyma. Pleural spaces: Unremarkable. No pleural effusion. No pneumothorax. Heart/Mediastinum: TAVR Bones/joints: There are moderate degenerative changes present. IMPRESSION IMPRESSION: Atelectasis and chronic appearing changes of the lung parenchyma. THIS DOCUMENT HAS BEEN ELECTRONICALLY SIGNED BY TI WEAVER MD XR INTRA-OP C-ARM CASE (Results Pending) Results for orders placed or performed during the hospital encounter of 11/13/23 CBC Result Value Ref Range WBC 8.07 4.00 - 10.80 K/uL RBC 3.19 3.85 - 5.15 M/uL HGB 9.5 (L) 12.0 - 15.3 g/dL HCT 29.2 (L) 36.0 - 45.2 % MCV 91.5 81.5 - 97.5 fL MCH 29.8 27.0 - 34.0 pg MCHC 32.5 32.0 - 36.0 g/dL RDW 14.5 11.5 - 15.5 % PLT 73 (L) 140 - 400 K/uL MPV 11.2 6.6 - 11.1 fL nRBCs 0 <=0 /100 WBCs COMPREHENSIVE METABOLIC PANEL Result Value Ref Range BUN 29 (H) 6 - 20 mg/dL Creatinine 0.9 0.5 - 1.0 mg/dL Estimated Glomerular Filtration Rate 63 >=60 mL/min Sodium 134 (L) 135 - 146 mmol/L Potassium 3.9 3.5 - 5.1 mmol/L Chloride 100 98 - 107 mmol/L CO2 23 22 - 32 mmol/L Anion Gap 11 7 - 15 mmol/L Glucose 116 70 - 120 mg/dL Albumin 3.2 (L) 3.8 - 5.0 g/dL AST 24 10 - 35 U/L Alkaline Phosphatase 75 35 - 130 U/L Bilirubin, Total 0.5 <=1.2 mg/dL Calcium 8.2 (L) 8.4 - 10.2 mg/dL Protein 6.0 6.0 - 8.3 g/dL ALT 12 10 - 35 U/L MAGNESIUM Result Value Ref Range Magnesium 2.0 1.5 - 2.6 mg/dL PHOSPHORUS Result Value Ref Range Phosphorus 2.5 2.5 - 4.8 mg/dL APTT Result Value Ref Range aPTT 31 21 - 38 seconds PT INR Result Value Ref Range Prothrombin Time 20.3 (H) 11.6 - 15.2 seconds INR 1.7 (H) 0.8 - 1.2 COMPREHENSIVE METABOLIC PANEL Result Value Ref Range BUN 26 (H) 6 - 20 mg/dL Creatinine 0.9 0.5 - 1.0 mg/dL Estimated Glomerular Filtration Rate 62 >=60 mL/min Sodium 136 135 - 146 mmol/L Potassium 4.0 3.5 - 5.1 mmol/L Chloride 103 98 - 107 mmol/L CO2 21 (L) 22 - 32 mmol/L Anion Gap 12 7 - 15 mmol/L Glucose 106 70 - 120 mg/dL Albumin 2.8 (L) 3.8 - 5.0 g/dL AST 17 10 - 35 U/L Alkaline Phosphatase 68 35 - 130 U/L Bilirubin, Total 0.5 <=1.2 mg/dL Calcium 7.6 (L) 8.4 - 10.2 mg/dL Protein 5.0 (L) 6.0 - 8.3 g/dL ALT 11 10 - 35 U/L CBC Result Value Ref Range WBC 5.87 4.00 - 10.80 K/uL RBC 2.68 3.85 - 5.15 M/uL HGB 8.1 (L) 12.0 - 15.3 g/dL HCT 25.0 (L) 36.0 - 45.2 % MCV 93.3 81.5 - 97.5 fL MCH 30.2 27.0 - 34.0 pg MCHC 32.4 32.0 - 36.0 g/dL RDW 14.8 11.5 - 15.5 % PLT 54 (L) 140 - 400 K/uL MPV 11.6 6.6 - 11.1 fL nRBCs 0 <=0 /100 WBCs MAGNESIUM Result Value Ref Range Magnesium 2.2 1.5 - 2.6 mg/dL PHOSPHORUS Result Value Ref Range Phosphorus 2.6 2.5 - 4.8 mg/dL BASIC METABOLIC PANEL Result Value Ref Range BUN 23 (H) 6 - 20 mg/dL Creatinine 0.9 0.5 - 1.0 mg/dL Estimated Glomerular Filtration Rate 65 >=60 mL/min Sodium 135 135 - 146 mmol/L Potassium 4.2 3.5 - 5.1 mmol/L Chloride 102 98 - 107 mmol/L CO2 25 22 - 32 mmol/L Anion Gap 8 7 - 15 mmol/L Glucose 122 (H) 70 - 120 mg/dL Calcium 8.1 (L) 8.4 - 10.2 mg/dL PHOSPHORUS Result Value Ref Range Phosphorus 2.7 2.5 - 4.8 mg/dL MAGNESIUM Result Value Ref Range Magnesium 2.3 1.5 - 2.6 mg/dL CALCIUM, IONIZED Result Value Ref Range Calcium, Ionized 1.16 1.13 - 1.32 mmol/L CBC Result Value Ref Range WBC 5.46 4.00 - 10.80 K/uL RBC 2.62 3.85 - 5.15 M/uL HGB 7.9 (L) 12.0 - 15.3 g/dL HCT 24.2 (L) 36.0 - 45.2 % MCV 92.4 81.5 - 97.5 fL MCH 30.2 27.0 - 34.0 pg MCHC 32.6 32.0 - 36.0 g/dL RDW 14.7 11.5 - 15.5 % PLT 52 (L) 140 - 400 K/uL MPV 11.7 6.6 - 11.1 fL nRBCs 0 <=0 /100 WBCs DIFFERENTIAL, AUTOMATED Result Value Ref Range WBC 5.46 4.00 - 10.80 K/uL Neutrophils % 77.7 (H) 40.0 - 75.0 % Lymphocytes % 8.4 (L) 18.0 - 42.0 % Monocytes % 10.3 1.0 - 11.0 % Eosinophils % 2.7 0.0 - 6.0 % Basophils % 0.4 0.0 - 2.0 % Immature Granulocytes % 0.5 0.0 - 2.0 % Absolute Neutrophils 4.24 1.80 - 7.70 K/uL Absolute Lymphocytes 0.46 (L) 1.00 - 4.80 K/ul Absolute Monocytes 0.56 0.00 - 1.10 K/uL Absolute Eosinophils 0.15 0.00 - 0.70 K/uL Absolute Basophils 0.02 0.00 - 0.20 K/uL Absolute Immature Granulocytes 0.03 0.00 - 0.20 K/uL BASIC METABOLIC PANEL Result Value Ref Range BUN 22 (H) 6 - 20 mg/dL Creatinine 0.8 0.5 - 1.0 mg/dL Estimated Glomerular Filtration Rate 73 >=60 mL/min Sodium 131 (L) 135 - 146 mmol/L Potassium 4.8 3.5 - 5.1 mmol/L Chloride 101 98 - 107 mmol/L CO2 22 22 - 32 mmol/L Anion Gap 8 7 - 15 mmol/L Glucose 152 (H) 70 - 120 mg/dL Calcium 8.2 (L) 8.4 - 10.2 mg/dL PHOSPHORUS Result Value Ref Range Phosphorus 3.0 2.5 - 4.8 mg/dL MAGNESIUM Result Value Ref Range Magnesium 2.4 1.5 - 2.6 mg/dL CBC Result Value Ref Range WBC 5.24 4.00 - 10.80 K/uL RBC 2.73 3.85 - 5.15 M/uL HGB 8.2 (L) 12.0 - 15.3 g/dL HCT 25.4 (L) 36.0 - 45.2 % MCV 93.0 81.5 - 97.5 fL MCH 30.0 27.0 - 34.0 pg MCHC 32.3 32.0 - 36.0 g/dL RDW 14.7 11.5 - 15.5 % PLT 57 (L) 140 - 400 K/uL MPV 11.9 6.6 - 11.1 fL nRBCs 0 <=0 /100 WBCs BASIC METABOLIC PANEL Result Value Ref Range BUN 29 (H) 6 - 20 mg/dL Creatinine 0.9 0.5 - 1.0 mg/dL Estimated Glomerular Filtration Rate 63 >=60 mL/min Sodium 130 (L) 135 - 146 mmol/L Potassium 5.0 3.5 - 5.1 mmol/L Chloride 96 (L) 98 - 107 mmol/L CO2 21 (L) 22 - 32 mmol/L Anion Gap 13 7 - 15 mmol/L Glucose 114 70 - 120 mg/dL Calcium 8.1 (L) 8.4 - 10.2 mg/dL PHOSPHORUS Result Value Ref Range Phosphorus 3.6 2.5 - 4.8 mg/dL MAGNESIUM Result Value Ref Range Magnesium 2.4 1.5 - 2.6 mg/dL BASIC METABOLIC PANEL Result Value Ref Range BUN 31 (H) 6 - 20 mg/dL Creatinine 0.9 0.5 - 1.0 mg/dL Estimated Glomerular Filtration Rate 60 >=60 mL/min Sodium 129 (L) 135 - 146 mmol/L Potassium 4.6 3.5 - 5.1 mmol/L Chloride 96 (L) 98 - 107 mmol/L CO2 22 22 - 32 mmol/L Anion Gap 11 7 - 15 mmol/L Glucose 115 70 - 120 mg/dL Calcium 8.4 8.4 - 10.2 mg/dL PHOSPHORUS Result Value Ref Range Phosphorus 4.0 2.5 - 4.8 mg/dL MAGNESIUM Result Value Ref Range Magnesium 2.1 1.5 - 2.6 mg/dL CBC Result Value Ref Range WBC 7.47 4.00 - 10.80 K/uL RBC 2.38 3.85 - 5.15 M/uL HGB 7.4 (L) 12.0 - 15.3 g/dL HCT 21.8 (L) 36.0 - 45.2 % MCV 91.6 81.5 - 97.5 fL MCH 31.1 27.0 - 34.0 pg MCHC 33.9 32.0 - 36.0 g/dL RDW 15.3 11.5 - 15.5 % PLT 52 (L) 140 - 400 K/uL MPV 11.4 6.6 - 11.1 fL nRBCs 0 <=0 /100 WBCs BASIC METABOLIC PANEL Result Value Ref Range BUN 29 (H) 6 - 20 mg/dL Creatinine 1.0 0.5 - 1.0 mg/dL Estimated Glomerular Filtration Rate 55 (L) >=60 mL/min Sodium 128 (L) 135 - 146 mmol/L Potassium 4.8 3.5 - 5.1 mmol/L Chloride 96 (L) 98 - 107 mmol/L CO2 20 (L) 22 - 32 mmol/L Anion Gap 12 7 - 15 mmol/L Glucose 116 70 - 120 mg/dL Calcium 8.4 8.4 - 10.2 mg/dL PHOSPHORUS Result Value Ref Range Phosphorus 4.4 2.5 - 4.8 mg/dL MAGNESIUM Result Value Ref Range Magnesium 2.1 1.5 - 2.6 mg/dL CBC Result Value Ref Range WBC 6.22 4.00 - 10.80 K/uL RBC 2.33 3.85 - 5.15 M/uL HGB 7.1 (L) 12.0 - 15.3 g/dL HCT 21.3 (L) 36.0 - 45.2 % MCV 91.4 81.5 - 97.5 fL MCH 30.5 27.0 - 34.0 pg MCHC 33.3 32.0 - 36.0 g/dL RDW 15.1 11.5 - 15.5 % PLT 46 (L) 140 - 400 K/uL MPV 11.2 6.6 - 11.1 fL nRBCs 0 <=0 /100 WBCs OSMOLALITY, SERUM Result Value Ref Range Osmolality, Serum 277 (L) 278 - 305 mOsm/kg OSMOLALITY, URINE Result Value Ref Range Osmolality, Urine 343 50 - 1,200 mOsm/kg SODIUM, RANDOM URINE Result Value Ref Range Sodium, Random Urine 54 mmol/L ALBUMIN Result Value Ref Range Albumin 2.5 (L) 3.8 - 5.0 g/dL PROTEIN Result Value Ref Range Protein 4.7 (L) 6.0 - 8.3 g/dL IRON SCREEN, INCLUDING TIBC Result Value Ref Range Iron 30 (L) 33 - 151 ug/dL Iron Binding Capacity 164 (L) 250 - 425 ug/dL Transferrin Saturation Percent 18 15 - 55 % RETICULOCYTE PANEL Result Value Ref Range Reticulocyte Percent 4.10 (H) 0.80 - 1.90 % Absolute Reticulocyte 94.3 31.3 - 100.1 K/uL Immature Reticuloctye Fraction 23.6 (H) 2.5 - 20.6 % Reticulocyte Hemoglobin 30.7 29.7 - 37.4 pg VITAMIN B12 Result Value Ref Range Vitamin B12 617 232 - 1,245 pg/mL FOLIC ACID Result Value Ref Range Folic Acid 13.4 >4.5 ng/mL BASIC METABOLIC PANEL Result Value Ref Range BUN 32 (H) 6 - 20 mg/dL Creatinine 1.3 (H) 0.5 - 1.0 mg/dL Estimated Glomerular Filtration Rate 42 (L) >=60 mL/min Sodium 128 (L) 135 - 146 mmol/L Potassium 4.6 3.5 - 5.1 mmol/L Chloride 95 (L) 98 - 107 mmol/L CO2 21 (L) 22 - 32 mmol/L Anion Gap 12 7 - 15 mmol/L Glucose 103 70 - 120 mg/dL Calcium 8.3 (L) 8.4 - 10.2 mg/dL PHOSPHORUS Result Value Ref Range Phosphorus 3.6 2.5 - 4.8 mg/dL MAGNESIUM Result Value Ref Range Magnesium 1.9 1.5 - 2.6 mg/dL CBC Result Value Ref Range WBC 7.60 4.00 - 10.80 K/uL RBC 2.53 3.85 - 5.15 M/uL HGB 7.9 (L) 12.0 - 15.3 g/dL HCT 23.2 (L) 36.0 - 45.2 % MCV 91.7 81.5 - 97.5 fL MCH 31.2 27.0 - 34.0 pg MCHC 34.1 32.0 - 36.0 g/dL RDW 15.6 11.5 - 15.5 % PLT 59 (L) 140 - 400 K/uL MPV 11.1 6.6 - 11.1 fL nRBCs 0 <=0 /100 WBCs Assessment and Plan IMPRESSION/PLAN OF CARE : Principal Problem: Pseudocyst of pancreas Active Problems: HTN (hypertension) Aphasia as late effect of cerebrovascular accident Weight loss Acute pancreatitis Malnutrition of moderate degree (HCC) Chronic idiopathic thrombocytopenia (HCC) Ileus (HCC) Sjogren's syndrome (HCC) Dilutional hyponatremia Anemia associated with nutritional deficiency Resolved Problems: UTI (urinary tract infection) Advance diet to easy to chew. She did well with full liquids. Nutrition on board. Continues with hyponatremia suspect low solute diet, poor po intake, 3rd spacing. Weight up 15 lbs. Add on protein, albumin levels- both low. Serum os 277 Will add Liquacel BID Boost shakes Stop Losartan d/t borderline BP I&O's Daily weights Continue abx to complete 5 day course post procedure. Resume Eliquis/Plavix today. Closely monitor for bleeding as she is high risk. Continue POLYSOMNOGRAPH TECH diuretics Stable anemia PT/OT CM on board. Plan to d/c to [facility] I have examined the patient and consistent with the dietitian's findings found malnutrition presentof Moderate (11/14/231005) degree. This is consistent with such due to Fat loss;Muscle loss;Inadequate energy intake (11/14/231005). I have also reviewed and agree with the dietitian's plan of carewhich include Monitored NPO/clear liquid status;Initiated parenteral nutrition support (11/14/231005). PHARMACOLOGIC VTE PROPHYLAXIS: Apixaban CODE STATUS: Full Code EXPECTED DISCHARGE DATE: 11/21/2023 Patient's case and plan of care discussed with my attending, Dr. Lea. I spent a total of 55 minutes coordinating, documenting, and providing care for this patient excluding time spent in the performance of separately billed services. Associated attestation - Edy Lea DO - 11/20/2023 1:08 PM EDT I have reviewed the advanced practitioner's documentation on the date of service referenced in note, and I agree with, and take responsibility for the plan of care. I spent a total of 12 minutes coordinating, documenting, and providing care for this patient excluding time spent in the performance of separately billed services or time spent by another provider/QHP. Patient was seen and examined, she was quite pleased that she tolerated her cream of wheat and yogurt this morning. Continue to monitor patient's ability to tolerate diet. Completing antibiotics. Anticipate discharge to rehab when patient shows a trach retic GERD of tolerating her diet. Further plan as noted below * Sarah Birmingham SN - 11/19/2023 1:18 PM EDT Unless the attending has added an attestation supporting use of this note to document a billable service, the signature of the Licensed Professional on this note only acknowledges the presence of thestudent's note within the patient record and the Licensed Professional's note should be referred tofor clinical information and recommendations. 0916: Helped OT ambulate patient 25 feet to bathroom and back. Patient was also bathed at this time. Ecchymosis noted on BUE. IV site checked and patent. 1012: +2 Edema noted in BLE. Patient refused SCDs or TEDS. Slight expressive aphasia. * Rashida Stevenson CRNP - 11/19/2023 12:07 PM EDT Images from the original note were not included. [facility] 5A-5109/W SUMMARY: Patient with PMHX: HTN, aortic stenosis s/p TAVR, nonobstructive CAD, cardiac pacemaker, HTN, Sjogren's, left breast cancer s/p mastectomy, pAF s/p ablation and as listed who was a direct admit from [facility] for pancreatitis and pancreatic pseudocyst in need of ERCP. She had Axios stent placedon 11/14. INTERVAL HISTORY: Patient seen and examined this morning. Tolerating clear liquid diet. Denies abdominal pain, N/V. She moved her bowels this morning. Objective Physical Exam Most Recent Vital Signs: BP: 109 mmHg/55 mmHg (11/19/23 07) Pulse: 74 (11/19/23 0747) Temp: 36.11 C (11/19/23 07) Temp Summary: Temp Min: 36.1 C (97 F) Max: 36.6 C (97.9 F) SpO2: 97 % (11/19/23 0747) O2 flow rate: 6 L/MIN (11/15/23 1615) Supplemental O2 Delivery: Room Air, None (11/19/23 1202) General: Pt in bed, alert, chronically ill appearing. Flat affect. Expressive aphasia. Head: Normocephalic, No masses, lesions, tenderness or abnormalities Eye Exam: PERRLA, EOMI, Conjunctiva are pink and non-injected, sclera clear Ears: External ears normal Oropharynx: mucous membranes moist without erythema or exudates Neck: supple, nontender, no cervical adenopathy palpable Heart: regular rate & rhythm and no murmur appreciated Lungs: no respiratory distress, CTA, without wheeze, rhonchi or crackles Abdomen: + BS, soft, nontender, slightly distended, no rebound tenderness or guarding Lower Extremities: +2 pitting edema, no calf tenderness, no stasis changes noted Peripheral Line Lower;Right;Anterior Arm 20 Gauge (Active) Number of days: 6 STUDIES: Encounter Orders Labs and other studies reviewed with pertinent findings noted below: XR ABDOMEN 1 VIEW Final Result PROCEDURE INFORMATION: Exam: XR Abdomen Exam date and time: 11/18/2023 11:55 AM Age: 83 years old Clinical indication: Other: Ileus TECHNIQUE: Imaging protocol: Radiologic exam of the abdomen. Views: Frontal supine view of the abdomen. 1 View. COMPARISON: DX XR CHEST 1 VIEW 11/13/2023 2:47 PM FINDINGS: Gastrointestinal tract: The stool and gas pattern is nonspecific. Intraperitoneal space: There are stents within the left upper quadrant Bones/joints: There is superolateral hip joint space narrowing on the right. There is bone on bone. There is degenerative change at the left hip as well. There is degenerative change in the lumbar spine. There are old pubic fractures on the left IMPRESSION IMPRESSION: Nonspecific stool and gas pattern THIS DOCUMENT HAS BEEN ELECTRONICALLY SIGNED BY CELSA MUNOZ MD US ENDOSCOPIC Final Result This is an imaging study not interpreted or resulted by a [facility] or [facility] contracted radiologist. XR CHEST 1 VIEW Final Result PROCEDURE INFORMATION: Exam: XR Chest Exam date and time: 11/13/2023 2:47 PM Age: 83 years old Clinical indication: Other: Admission; Pre-op; Additional info: Here for ercp TECHNIQUE: Imaging protocol: Radiologic exam of the chest. Views: 1 view. COMPARISON: DX (CXR AP X-CRAIG GRID, CHEST, CXR AP GRID Crosswise) 07/14/2020 5:28 AM FINDINGS: Tubes, catheters and devices: A pacemaker device is present, and its leads are in appropriate position. Lungs: Low lung volumes with atelectatic changes. Chronic changes of the lung parenchyma. Pleural spaces: Unremarkable. No pleural effusion. No pneumothorax. Heart/Mediastinum: TAVR Bones/joints: There are moderate degenerative changes present. IMPRESSION IMPRESSION: Atelectasis and chronic appearing changes of the lung parenchyma. THIS DOCUMENT HAS BEEN ELECTRONICALLY SIGNED BY TI WEAVER MD XR INTRA-OP C-ARM CASE (Results Pending) Results for orders placed or performed during the hospital encounter of 11/13/23 CBC Result Value Ref Range WBC 8.07 4.00 - 10.80 K/uL RBC 3.19 3.85 - 5.15 M/uL HGB 9.5 (L) 12.0 - 15.3 g/dL HCT 29.2 (L) 36.0 - 45.2 % MCV 91.5 81.5 - 97.5 fL MCH 29.8 27.0 - 34.0 pg MCHC 32.5 32.0 - 36.0 g/dL RDW 14.5 11.5 - 15.5 % PLT 73 (L) 140 - 400 K/uL MPV 11.2 6.6 - 11.1 fL nRBCs 0 <=0 /100 WBCs COMPREHENSIVE METABOLIC PANEL Result Value Ref Range BUN 29 (H) 6 - 20 mg/dL Creatinine 0.9 0.5 - 1.0 mg/dL Estimated Glomerular Filtration Rate 63 >=60 mL/min Sodium 134 (L) 135 - 146 mmol/L Potassium 3.9 3.5 - 5.1 mmol/L Chloride 100 98 - 107 mmol/L CO2 23 22 - 32 mmol/L Anion Gap 11 7 - 15 mmol/L Glucose 116 70 - 120 mg/dL Albumin 3.2 (L) 3.8 - 5.0 g/dL AST 24 10 - 35 U/L Alkaline Phosphatase 75 35 - 130 U/L Bilirubin, Total 0.5 <=1.2 mg/dL Calcium 8.2 (L) 8.4 - 10.2 mg/dL Protein 6.0 6.0 - 8.3 g/dL ALT 12 10 - 35 U/L MAGNESIUM Result Value Ref Range Magnesium 2.0 1.5 - 2.6 mg/dL PHOSPHORUS Result Value Ref Range Phosphorus 2.5 2.5 - 4.8 mg/dL APTT Result Value Ref Range aPTT 31 21 - 38 seconds PT INR Result Value Ref Range Prothrombin Time 20.3 (H) 11.6 - 15.2 seconds INR 1.7 (H) 0.8 - 1.2 COMPREHENSIVE METABOLIC PANEL Result Value Ref Range BUN 26 (H) 6 - 20 mg/dL Creatinine 0.9 0.5 - 1.0 mg/dL Estimated Glomerular Filtration Rate 62 >=60 mL/min Sodium 136 135 - 146 mmol/L Potassium 4.0 3.5 - 5.1 mmol/L Chloride 103 98 - 107 mmol/L CO2 21 (L) 22 - 32 mmol/L Anion Gap 12 7 - 15 mmol/L Glucose 106 70 - 120 mg/dL Albumin 2.8 (L) 3.8 - 5.0 g/dL AST 17 10 - 35 U/L Alkaline Phosphatase 68 35 - 130 U/L Bilirubin, Total 0.5 <=1.2 mg/dL Calcium 7.6 (L) 8.4 - 10.2 mg/dL Protein 5.0 (L) 6.0 - 8.3 g/dL ALT 11 10 - 35 U/L CBC Result Value Ref Range WBC 5.87 4.00 - 10.80 K/uL RBC 2.68 3.85 - 5.15 M/uL HGB 8.1 (L) 12.0 - 15.3 g/dL HCT 25.0 (L) 36.0 - 45.2 % MCV 93.3 81.5 - 97.5 fL MCH 30.2 27.0 - 34.0 pg MCHC 32.4 32.0 - 36.0 g/dL RDW 14.8 11.5 - 15.5 % PLT 54 (L) 140 - 400 K/uL MPV 11.6 6.6 - 11.1 fL nRBCs 0 <=0 /100 WBCs MAGNESIUM Result Value Ref Range Magnesium 2.2 1.5 - 2.6 mg/dL PHOSPHORUS Result Value Ref Range Phosphorus 2.6 2.5 - 4.8 mg/dL BASIC METABOLIC PANEL Result Value Ref Range BUN 23 (H) 6 - 20 mg/dL Creatinine 0.9 0.5 - 1.0 mg/dL Estimated Glomerular Filtration Rate 65 >=60 mL/min Sodium 135 135 - 146 mmol/L Potassium 4.2 3.5 - 5.1 mmol/L Chloride 102 98 - 107 mmol/L CO2 25 22 - 32 mmol/L Anion Gap 8 7 - 15 mmol/L Glucose 122 (H) 70 - 120 mg/dL Calcium 8.1 (L) 8.4 - 10.2 mg/dL PHOSPHORUS Result Value Ref Range Phosphorus 2.7 2.5 - 4.8 mg/dL MAGNESIUM Result Value Ref Range Magnesium 2.3 1.5 - 2.6 mg/dL CALCIUM, IONIZED Result Value Ref Range Calcium, Ionized 1.16 1.13 - 1.32 mmol/L CBC Result Value Ref Range WBC 5.46 4.00 - 10.80 K/uL RBC 2.62 3.85 - 5.15 M/uL HGB 7.9 (L) 12.0 - 15.3 g/dL HCT 24.2 (L) 36.0 - 45.2 % MCV 92.4 81.5 - 97.5 fL MCH 30.2 27.0 - 34.0 pg MCHC 32.6 32.0 - 36.0 g/dL RDW 14.7 11.5 - 15.5 % PLT 52 (L) 140 - 400 K/uL MPV 11.7 6.6 - 11.1 fL nRBCs 0 <=0 /100 WBCs DIFFERENTIAL, AUTOMATED Result Value Ref Range WBC 5.46 4.00 - 10.80 K/uL Neutrophils % 77.7 (H) 40.0 - 75.0 % Lymphocytes % 8.4 (L) 18.0 - 42.0 % Monocytes % 10.3 1.0 - 11.0 % Eosinophils % 2.7 0.0 - 6.0 % Basophils % 0.4 0.0 - 2.0 % Immature Granulocytes % 0.5 0.0 - 2.0 % Absolute Neutrophils 4.24 1.80 - 7.70 K/uL Absolute Lymphocytes 0.46 (L) 1.00 - 4.80 K/ul Absolute Monocytes 0.56 0.00 - 1.10 K/uL Absolute Eosinophils 0.15 0.00 - 0.70 K/uL Absolute Basophils 0.02 0.00 - 0.20 K/uL Absolute Immature Granulocytes 0.03 0.00 - 0.20 K/uL BASIC METABOLIC PANEL Result Value Ref Range BUN 22 (H) 6 - 20 mg/dL Creatinine 0.8 0.5 - 1.0 mg/dL Estimated Glomerular Filtration Rate 73 >=60 mL/min Sodium 131 (L) 135 - 146 mmol/L Potassium 4.8 3.5 - 5.1 mmol/L Chloride 101 98 - 107 mmol/L CO2 22 22 - 32 mmol/L Anion Gap 8 7 - 15 mmol/L Glucose 152 (H) 70 - 120 mg/dL Calcium 8.2 (L) 8.4 - 10.2 mg/dL PHOSPHORUS Result Value Ref Range Phosphorus 3.0 2.5 - 4.8 mg/dL MAGNESIUM Result Value Ref Range Magnesium 2.4 1.5 - 2.6 mg/dL CBC Result Value Ref Range WBC 5.24 4.00 - 10.80 K/uL RBC 2.73 3.85 - 5.15 M/uL HGB 8.2 (L) 12.0 - 15.3 g/dL HCT 25.4 (L) 36.0 - 45.2 % MCV 93.0 81.5 - 97.5 fL MCH 30.0 27.0 - 34.0 pg MCHC 32.3 32.0 - 36.0 g/dL RDW 14.7 11.5 - 15.5 % PLT 57 (L) 140 - 400 K/uL MPV 11.9 6.6 - 11.1 fL nRBCs 0 <=0 /100 WBCs BASIC METABOLIC PANEL Result Value Ref Range BUN 29 (H) 6 - 20 mg/dL Creatinine 0.9 0.5 - 1.0 mg/dL Estimated Glomerular Filtration Rate 63 >=60 mL/min Sodium 130 (L) 135 - 146 mmol/L Potassium 5.0 3.5 - 5.1 mmol/L Chloride 96 (L) 98 - 107 mmol/L CO2 21 (L) 22 - 32 mmol/L Anion Gap 13 7 - 15 mmol/L Glucose 114 70 - 120 mg/dL Calcium 8.1 (L) 8.4 - 10.2 mg/dL PHOSPHORUS Result Value Ref Range Phosphorus 3.6 2.5 - 4.8 mg/dL MAGNESIUM Result Value Ref Range Magnesium 2.4 1.5 - 2.6 mg/dL BASIC METABOLIC PANEL Result Value Ref Range BUN 31 (H) 6 - 20 mg/dL Creatinine 0.9 0.5 - 1.0 mg/dL Estimated Glomerular Filtration Rate 60 >=60 mL/min Sodium 129 (L) 135 - 146 mmol/L Potassium 4.6 3.5 - 5.1 mmol/L Chloride 96 (L) 98 - 107 mmol/L CO2 22 22 - 32 mmol/L Anion Gap 11 7 - 15 mmol/L Glucose 115 70 - 120 mg/dL Calcium 8.4 8.4 - 10.2 mg/dL PHOSPHORUS Result Value Ref Range Phosphorus 4.0 2.5 - 4.8 mg/dL MAGNESIUM Result Value Ref Range Magnesium 2.1 1.5 - 2.6 mg/dL CBC Result Value Ref Range WBC 7.47 4.00 - 10.80 K/uL RBC 2.38 3.85 - 5.15 M/uL HGB 7.4 (L) 12.0 - 15.3 g/dL HCT 21.8 (L) 36.0 - 45.2 % MCV 91.6 81.5 - 97.5 fL MCH 31.1 27.0 - 34.0 pg MCHC 33.9 32.0 - 36.0 g/dL RDW 15.3 11.5 - 15.5 % PLT 52 (L) 140 - 400 K/uL MPV 11.4 6.6 - 11.1 fL nRBCs 0 <=0 /100 WBCs BASIC METABOLIC PANEL Result Value Ref Range BUN 29 (H) 6 - 20 mg/dL Creatinine 1.0 0.5 - 1.0 mg/dL Estimated Glomerular Filtration Rate 55 (L) >=60 mL/min Sodium 128 (L) 135 - 146 mmol/L Potassium 4.8 3.5 - 5.1 mmol/L Chloride 96 (L) 98 - 107 mmol/L CO2 20 (L) 22 - 32 mmol/L Anion Gap 12 7 - 15 mmol/L Glucose 116 70 - 120 mg/dL Calcium 8.4 8.4 - 10.2 mg/dL PHOSPHORUS Result Value Ref Range Phosphorus 4.4 2.5 - 4.8 mg/dL MAGNESIUM Result Value Ref Range Magnesium 2.1 1.5 - 2.6 mg/dL CBC Result Value Ref Range WBC 6.22 4.00 - 10.80 K/uL RBC 2.33 3.85 - 5.15 M/uL HGB 7.1 (L) 12.0 - 15.3 g/dL HCT 21.3 (L) 36.0 - 45.2 % MCV 91.4 81.5 - 97.5 fL MCH 30.5 27.0 - 34.0 pg MCHC 33.3 32.0 - 36.0 g/dL RDW 15.1 11.5 - 15.5 % PLT 46 (L) 140 - 400 K/uL MPV 11.2 6.6 - 11.1 fL nRBCs 0 <=0 /100 WBCs OSMOLALITY, SERUM Result Value Ref Range Osmolality, Serum 277 (L) 278 - 305 mOsm/kg ALBUMIN Result Value Ref Range Albumin 2.5 (L) 3.8 - 5.0 g/dL PROTEIN Result Value Ref Range Protein 4.7 (L) 6.0 - 8.3 g/dL Assessment and Plan IMPRESSION/PLAN OF CARE : Principal Problem: Pseudocyst of pancreas Active Problems: HTN (hypertension) Aphasia as late effect of cerebrovascular accident Weight loss Acute pancreatitis Malnutrition of moderate degree (HCC) Chronic idiopathic thrombocytopenia (HCC) Ileus (HCC) Sjogren's syndrome (HCC) Dilutional hyponatremia Anemia associated with nutritional deficiency Resolved Problems: UTI (urinary tract infection) Advance diet to full liquids. Stop PPN. Nutrition on board. Continues with hyponatremia suspect low solute diet, poor po intake, 3rd spacing. Weight up 15 lbs. Add on protein, albumin levels- both low. Serum os 277 Will add Liquacel BID Will trial Lasix 40 mg IV x 1. I&O's Daily weights Continue abx to complete 5 day course post procedure. Resume Eliquis/Plavix on on 11/19 Continue POLYSOMNOGRAPH TECH diuretics Stable anemia- will add on anemia labs. PT/OT CM on board. Plan to d/c to [facility] I have examined the patient and consistent with the dietitian's findings found malnutrition presentof Moderate (11/14/23 1006) degree. This is consistent with such due to Fat loss;Muscle loss;Inadequate energy intake (11/14/23 1006). I have also reviewed and agree with the dietitian's plan of carewhich include Monitored NPO/clear liquid status;Initiated parenteral nutrition support (11/14/23 1006). PHARMACOLOGIC VTE PROPHYLAXIS: Apixaban CODE STATUS: Full Code EXPECTED DISCHARGE DATE: 11/20/2023 Patient's case and plan of care discussed with my attending, Dr. Lea. I spent a total of 52 minutes coordinating, documenting, and providing care for this patient excluding time spent in the performance of separately billed services. Associated attestation - Edy Lea DO - 11/19/2023 1:28 PM EDT I have reviewed the advanced practitioner's documentation on the date of service referenced in note, and I agree with, and take responsibility for the plan of care. I spent a total of 15 minutes coordinating, documenting, and providing care for this patient excluding time spent in the performance of separately billed services or time spent by another provider/QHP. Patient looks brighter and affect this morning. Seems quite pleased that she tolerated a clear liquid diet. Communication with GI team, agrees with advancing diet. Reviewed plan of care as outlined below * Edy Lea DO - 11/18/2023 10:30 AM EDT Images from the original note were not included. [facility] 5A-5109/W INTERVAL HISTORY: No acute issues overnight. Patient states she was tolerating clear liquids. No reported bowel movement Objective Physical Exam Most Recent Vital Signs: BP: 110 mmHg/57 mmHg (11/18/23707) Pulse: 72 (11/18/23 0740) Temp: 35.89 C (11/18/23707) Temp Summary: Temp Min: 35.9 C (96.6 F) Max: 36.2 C (97.2 F) SpO2: 94 % (11/18/23739) O2 flow rate: 6 L/MIN (11/15/23 1615) Supplemental O2 Delivery: Room Air, None (11/18/23739) Constitutional: no acute distress CV: normal rate Chest: normal respiratory effort, decreased breath sounds Abdomen: soft, no tenderness, some minimal distention Extremities: Mild edema Neuro: alert, chronic expressive aphasia Peripheral Line Lower;Right;Anterior Arm 20 Gauge (Active) Number of days: 5 Peripheral Line Lower;Right 22 Gauge (Active) Number of days: 3 STUDIES: Encounter Orders Labs and other studies reviewed with pertinent findings noted below: Reviewed basic metabolic profile, sodium 129, progressive hyponatremia Hemoglobin 7.4, decreasing Assessment and Plan IMPRESSION : Principal Problem: Pseudocyst of pancreas Active Problems: HTN (hypertension) Aphasia as late effect of cerebrovascular accident Weight loss Acute pancreatitis Malnutrition of moderate degree (HCC) Chronic idiopathic thrombocytopenia (HCC) Ileus (HCC) Sjogren's syndrome (HCC) Dilutional hyponatremia Anemia associated with nutritional deficiency Resolved Problems: UTI (urinary tract infection) I have examined the patient and consistent with the dietitian's findings found malnutrition presentof Moderate (11/14/23 1006) degree. This is consistent with such due to Fat loss;Muscle loss;Inadequate energy intake (11/14/23 1006). I have also reviewed and agree with the dietitian's plan of carewhich include Monitored NPO/clear liquid status;Initiated parenteral nutrition support (11/14/23 1006). DIFFERENTIAL AND PLAN: Patient tolerating clear liquids. Continue at this time Continue PPN Patient with progressive hyponatremia, suspect may be hypervolemic hyponatremia, give additional IVLasix today Patient with progressing anemia, suspect nutritional, no evidence of blood loss continue to monitor Patient without bowel movement for multiple days, patient was not had much oral intake. KUB abdomen to evaluate for possible ileus Monitor laboratory studies Activity as tolerated Continue antibiotics, Complete 5 day course postprocedure Potential advancing diet tomorrow PHARMACOLOGIC VTE PROPHYLAXIS: Apixaban CODE STATUS: Full Code EXPECTED DISCHARGE DATE: 11/19/2023 * Edy Lea DO - 11/17/2023 12:43 PM EDT Images from the original note were not included. [facility] [address] 5A-5109/W INTERVAL HISTORY: Patient reports feeling much better. And no abdominal bloating. Only spot tenderness in the abdomen. Objective Physical Exam Most Recent Vital Signs: BP: 118 mmHg/59 mmHg (11/17/23727) Pulse: 75 (11/17/23 0759) Temp: 35.89 C (11/17/23727) Temp Summary: Temp Min: 35.9 C (96.6 F) Max: 36.6 C (97.9 F) SpO2: 96 % (11/17/23 075) O2 flow rate: 6 L/MIN (11/15/23 1615) Supplemental O2 Delivery: Room Air, None (11/17/23 075) Constitutional: no acute distress, improving in appearance, less sick CV: normal rate, normal rhythm Chest: normal respiratory effort, decreased breath sounds Abdomen: soft, normal bowel sounds, minimal epigastric tenderness , nondistended, no rebound or guarding Extremities: Edema lower extremities, 3rd spacing Neuro: alert, baseline expressive aphasia Peripheral Line Lower;Right;Anterior Arm 20 Gauge (Active) Number of days: 4 Peripheral Line Lower;Right 22 Gauge (Active) Number of days: 2 STUDIES: Encounter Orders Labs and other studies reviewed with pertinent findings noted below: Basic metabolic profile reviewed, sodium 130 Assessment and Plan IMPRESSION : Principal Problem: Pseudocyst of pancreas Active Problems: HTN (hypertension) Aphasia as late effect of cerebrovascular accident Weight loss Acute pancreatitis Malnutrition of moderate degree (HCC) Chronic idiopathic thrombocytopenia (HCC) Ileus (HCC) Sjogren's syndrome (HCC) Resolved Problems: UTI (urinary tract infection) I have examined the patient and consistent with the dietitian's findings found malnutrition presentof Moderate (11/14/23 1006) degree. This is consistent with such due to Fat loss;Muscle loss;Inadequate energy intake (11/14/23 1006). I have also reviewed and agree with the dietitian's plan of carewhich include Monitored NPO/clear liquid status;Initiated parenteral nutrition support (11/14/23 1006). DIFFERENTIAL AND PLAN: Patient significantly improved. We will trial clear liquid diet. Continue PPN Transitioned to oral medications Continue therapies Monitor sodium, suspect component of volume overload Continue diuretics Discontinue Isolyte, continue PPN Phone update to gladis Goss. Aware of anticipated discharge to [facility], possible Sunday. PHARMACOLOGIC VTE PROPHYLAXIS: Apixaban CODE STATUS: Full Code EXPECTED DISCHARGE DATE: 11/19/2023 * Amanuel Rockwell, [facility] - 11/16/2023 2:45 PM EDT [facility] Medication History Note Name: Ally Luna Date: 11/16/2023 Time: 2:45 PM Review of patient's allergies indicates: Allergen Reactions Bactrim [Sulfamethoxazole-Trimethoprim] Nausea/vomiting [facility] [address] [address] [facility]/pharmacy #[id number] [facility] [address] [facility] [id number] Source of medication history: Pharmacy records Medications added: Ondansetron Amlodipine Pravastatin Promethazine Medications changed: oxybutynin Medications removed: na Other pertinent information collected during medication history (i.e. reliability of source, issues/barriers identified, etc): na Prior to Admission medications Medication Sig Last Dose Discont. amLODIPine Besylate 5 MG Oral Tablet (Norvasc) Take 1 Tablet by mouth in the morning. Clopidogrel Bisulfate 75 MG Oral Tablet (pLAVix) Take 1 Tablet by mouth in the morning. Mirtazapine 7.5 MG Oral Tablet (Remeron) Take 1 Tablet by mouth at bedtime. Ondansetron HCl 4 MG Oral Tablet (Zofran) Take 1 Tablet by mouth every 8 hours as needed for Nausea. Pravastatin Sodium 10 MG Oral Tablet (Pravachol) Take 1 Tablet by mouth every evening. Promethazine HCl 25 MG Oral Tablet (Phenergan) Take 1 Tablet by mouth every 6 hours as needed for Nausea. Atorvastatin Calcium 40 MG Oral Tablet (Lipitor) Take 1 Tablet by mouth at bedtime. 11/12/2023 Benzonatate 100 MG Oral Capsule (Tessalon Perles) Take 1 Capsule by mouth 2 times a day as needed for Cough. Creon [id number] UNIT Oral Capsule Delayed Release Particles Take 1 Capsule by mouth in the morningand 1 Capsule at noon and 1 Capsule in the evening and 1 Capsule before bedtime. 11/13/2023 Furosemide 40 MG Oral Tablet (Lasix) Take 1 Tablet by mouth in the morning. 11/13/2023 Montelukast Sodium 10 MG Oral Tablet (Singulair) Take 1 Tablet by mouth daily at noon. 11/13/2023 oxyBUTYnin Chloride 5 MG Oral Tablet (Ditropan) Take 1 Tablet by mouth at bedtime. 11/12/2023 Pantoprazole Sodium 40 MG Oral Tablet Delayed Release (Protonix) Take 1 Tablet by mouth daily firstthing in the morning. 11/13/2023 Spironolactone 100 MG Oral Tablet (Aldactone) Take 1 Tablet by mouth in the morning. 11/13/2023 Align 4 MG Oral Capsule Take 1 Capsule by mouth in the morning. Held Biotinex Oral Capsule Take by mouth 1,000 mcg 2 times a day . Held Apixaban 5 MG Oral Tablet (Eliquis) Take 1 Tablet by mouth in the morning and 1 Tablet before bedtime. Held Carvedilol 25 MG Oral Tablet (Coreg) Take 1 Tablet by mouth in the morning and 1 Tablet before bedtime. Taking everyday. 11/13/2023 Albuterol Sulfate 108 (90 Base) MCG/ACT Inhalation Aerosol Powder Breath Activated Inhale 2 Puffs by mouth every 6 hours as needed for Wheezing. Amoxicillin 500 MG Oral Capsule (AMOXIL) Take 1 Capsule by mouth as needed (Take 4 capsules 1 hour prior to dental appt). Unknown Asmanex (120 Metered Doses) 220 MCG/INH Inhalation Aerosol Powder Breath Activated (Mometasone Furoate) Inhale 2 Puffs by mouth in the morning and 2 Puffs before bedtime. 11/13/2023 busPIRone HCl 5 MG Oral Tablet (BUSPAR) Take 1 Tablet by mouth in the morning and 1 Tablet before bedtime. 11/13/2023 Ferrous Sulfate 325 (65 Fe) MG Oral Tablet (FEOSOL) Take 1 Tablet by mouth daily at noon. 11/13/2023 Levothyroxine Sodium 100 MCG Oral Capsule (Tirosint) Take 1 Capsule by mouth daily first thing in the morning. (at least 30 min prior to breakfast or other meds) 11/13/2023 LORazepam 0.5 MG Oral Tablet (ATIVAN) Take 1 Tablet by mouth every 12 hours as needed for Anxiety. Past Month Prevagen 10 MG Oral Capsule (Apoaequorin) Take by mouth. Takes two in the am Resveratrol 100 MG Oral Capsule Take by mouth. Takes two daily B-12 500 MCG Oral Tablet Take by mouth 2 times a day . Nelia-C Oral Tablet Take by mouth 1 Tablet daily . 500 mg Grapeseed Extract 500-50 MG Oral Capsule Take by mouth 100 mg 2 times a day . L-Lysine 500 MG Oral Capsule Take by mouth daily . Lutein 10 MG Oral Tablet Take by mouth 6 mg daily . Ocuvite Adult 50+ Oral Capsule Take 1 Capsule by mouth in the morning. Vitamin D3 25 MCG (1000 UT) Oral Capsule Take by mouth 2 times a day . Zinc 50 MG Oral Capsule Take 1 Capsule by mouth in the morning. Citracal Petites/Vitamin D 200-250 MG-UNIT Oral Tablet (Calcium Citrate-Vitamin D) Take 1 Tab by mouth 2 times a day. Coenzyme Q10 100 MG Oral Capsule Take 1 Capsule by mouth in the morning. Docusate Sodium 100 MG Oral Tablet Take 1 Tablet by mouth in the morning. Losartan Potassium 100 MG Oral Tablet (COZAAR) Take 0.5 Tablets by mouth in the morning and 0.5 Tablets before bedtime. Takes 100 mg in the pm with dinner. Did patient bring in any medications? No Preferred discharge pharmacy: [facility] Please contact extension [phone] with questions. Amanuel Rockwell RPh 11/16/23 * Diego Leger RP - 11/16/2023 1:19 PM EDT PHARMACY [facility] [address] [id number] Name: Ally Luna Date: 11/16/2023 at 1:19 PM PN per Pharmacy TBW: 89 kg ABW: 70 kg IBW: 57 kg Height: 165.1 cm BMI: 32.45 kg/m2 Age: 83 years Diabetic?: no Central or peripheral administration?: peripheral Goal PN parameters: Total Kcal: 486 Fluid: 2000 ml Macronutrients: Amino acids: 45 grams = 180 kcal (4 kcal/gram) = 37 % of total Carbohydrates: 90 grams = 306 kcal (3.4 kcal/gram) = 63 % of total Current PN parameters: Total Kcal: 486 (100 % goal) Fluid: 2000 ml (100 % goal) Macronutrients: Amino acids: 45 grams = 180 kcal (4 kcal/gram) = 100 % goal Carbohydrates: 90 grams = 306 kcal (3.4 kcal/gram) = 100 % goal Micronutrients Electrolytes Na: 120 meq K: 65 meq Phos: 21 mmol M meq Ca: 11 meq Acetate: 74 meq Cl: 80 meq Trace elements: 1 ml Infuvite multivitamin: 10 ml Dextrose mg/kg/min: 0.7 Osmolarity: 651 Contact the Pharmacy at extension [phone] if there are any questions. * Rashida Stevenson CRNP - 11/16/2023 1:17 PM EDT Images from the original note were not included. [facility] [address] 5A-5109/W SUMMARY: Patient with PMHX: HTN, aortic stenosis s/p TAVR, nonobstructive CAD, cardiac pacemaker, HTN, Sjogren's, left breast cancer s/p mastectomy, pAF s/p ablation and as listed who was a direct admit from [facility] for pancreatitis and pancreatic pseudocyst in need of ERCP INTERVAL HISTORY: Patient seen and examined this morning. Reports she is doing okay. She feels abdominal pain is improving. No nausea or vomiting. Somewhat poor historian. She is nervous about possibly restarting a diet- fearful she may vomit. Patient s/p EGD for tx of large pseudocyst in pancreatic tail tx with Axios stent, ascites found inthe peritoneal cavity. She remains on PPN. Denies fever/chills, chest pain, SOB. +LE swelling. Labs reviewed. Stable hgb/hct but has been downtrending over the last year. Plt 57 (hx of chronic thrombocytopenia) Na 131 Imaging reviewed. Objective Physical Exam Most Recent Vital Signs: BP: 120 mmHg/86 mmHg (11/16/23729) Pulse: 100 (11/16/23729) Temp: 35.89 C (11/16/23729) Temp Summary: Temp Min: 35.6 C (96.1 F) Max: 36.4 C (97.5 F) SpO2: 99 % (11/16/23729) O2 flow rate: 6 L/MIN (11/15/23 1615) Supplemental O2 Delivery: Room Air, None (11/16/23729) General: Pt in bed, alert, chronically ill appearing. Flat affect. Some expressive aphasia Head: Normocephalic, No masses, lesions, tenderness or abnormalities Eye Exam: PERRLA, EOMI, Conjunctiva are pink and non-injected, sclera clear Ears: External ears normal Oropharynx: mucous membranes moist without erythema or exudates Neck: supple, nontender, no cervical adenopathy palpable Heart: regular rate & rhythm and no murmur appreciated Lungs: no respiratory distress, CTA, without wheeze, rhonchi or crackles Abdomen: + BS, soft, nontender, slightly distended, no rebound tenderness or guarding Lower Extremities: +2 edema, no calf tenderness, no stasis changes noted Peripheral Line Lower;Right;Anterior Arm 20 Gauge (Active) Number of days: 3 Peripheral Line Lower;Right 22 Gauge (Active) Number of days: 1 STUDIES: Encounter Orders Labs and other studies reviewed with pertinent findings noted below: US ENDOSCOPIC Final Result This is an imaging study not interpreted or resulted by a [employer] or [employer] contracted radiologist. XR CHEST 1 VIEW Final Result PROCEDURE INFORMATION: Exam: XR Chest Exam date and time: 11/13/2023 2:47 PM Age: 83 years old Clinical indication: Other: Admission; Pre-op; Additional info: Here for ercp TECHNIQUE: Imaging protocol: Radiologic exam of the chest. Views: 1 view. COMPARISON: DX (CXR AP X-CRAIG GRID, CHEST, CXR AP GRID Crosswise) 07/14/2020 5:28 AM FINDINGS: Tubes, catheters and devices: A pacemaker device is present, and its leads are in appropriate position. Lungs: Low lung volumes with atelectatic changes. Chronic changes of the lung parenchyma. Pleural spaces: Unremarkable. No pleural effusion. No pneumothorax. Heart/Mediastinum: TAVR Bones/joints: There are moderate degenerative changes present. IMPRESSION IMPRESSION: Atelectasis and chronic appearing changes of the lung parenchyma. THIS DOCUMENT HAS BEEN ELECTRONICALLY SIGNED BY TI WEAVER MD XR INTRA-OP C-ARM CASE (Results Pending) Results for orders placed or performed during the hospital encounter of 11/13/23 CBC Result Value Ref Range WBC 8.07 4.00 - 10.80 K/uL RBC 3.19 3.85 - 5.15 M/uL HGB 9.5 (L) 12.0 - 15.3 g/dL HCT 29.2 (L) 36.0 - 45.2 % MCV 91.5 81.5 - 97.5 fL MCH 29.8 27.0 - 34.0 pg MCHC 32.5 32.0 - 36.0 g/dL RDW 14.5 11.5 - 15.5 % PLT 73 (L) 140 - 400 K/uL MPV 11.2 6.6 - 11.1 fL nRBCs 0 <=0 /100 WBCs COMPREHENSIVE METABOLIC PANEL Result Value Ref Range BUN 29 (H) 6 - 20 mg/dL Creatinine 0.9 0.5 - 1.0 mg/dL Estimated Glomerular Filtration Rate 63 >=60 mL/min Sodium 134 (L) 135 - 146 mmol/L Potassium 3.9 3.5 - 5.1 mmol/L Chloride 100 98 - 107 mmol/L CO2 23 22 - 32 mmol/L Anion Gap 11 7 - 15 mmol/L Glucose 116 70 - 120 mg/dL Albumin 3.2 (L) 3.8 - 5.0 g/dL AST 24 10 - 35 U/L Alkaline Phosphatase 75 35 - 130 U/L Bilirubin, Total 0.5 <=1.2 mg/dL Calcium 8.2 (L) 8.4 - 10.2 mg/dL Protein 6.0 6.0 - 8.3 g/dL ALT 12 10 - 35 U/L MAGNESIUM Result Value Ref Range Magnesium 2.0 1.5 - 2.6 mg/dL PHOSPHORUS Result Value Ref Range Phosphorus 2.5 2.5 - 4.8 mg/dL APTT Result Value Ref Range aPTT 31 21 - 38 seconds PT INR Result Value Ref Range Prothrombin Time 20.3 (H) 11.6 - 15.2 seconds INR 1.7 (H) 0.8 - 1.2 COMPREHENSIVE METABOLIC PANEL Result Value Ref Range BUN 26 (H) 6 - 20 mg/dL Creatinine 0.9 0.5 - 1.0 mg/dL Estimated Glomerular Filtration Rate 62 >=60 mL/min Sodium 136 135 - 146 mmol/L Potassium 4.0 3.5 - 5.1 mmol/L Chloride 103 98 - 107 mmol/L CO2 21 (L) 22 - 32 mmol/L Anion Gap 12 7 - 15 mmol/L Glucose 106 70 - 120 mg/dL Albumin 2.8 (L) 3.8 - 5.0 g/dL AST 17 10 - 35 U/L Alkaline Phosphatase 68 35 - 130 U/L Bilirubin, Total 0.5 <=1.2 mg/dL Calcium 7.6 (L) 8.4 - 10.2 mg/dL Protein 5.0 (L) 6.0 - 8.3 g/dL ALT 11 10 - 35 U/L CBC Result Value Ref Range WBC 5.87 4.00 - 10.80 K/uL RBC 2.68 3.85 - 5.15 M/uL HGB 8.1 (L) 12.0 - 15.3 g/dL HCT 25.0 (L) 36.0 - 45.2 % MCV 93.3 81.5 - 97.5 fL MCH 30.2 27.0 - 34.0 pg MCHC 32.4 32.0 - 36.0 g/dL RDW 14.8 11.5 - 15.5 % PLT 54 (L) 140 - 400 K/uL MPV 11.6 6.6 - 11.1 fL nRBCs 0 <=0 /100 WBCs MAGNESIUM Result Value Ref Range Magnesium 2.2 1.5 - 2.6 mg/dL PHOSPHORUS Result Value Ref Range Phosphorus 2.6 2.5 - 4.8 mg/dL BASIC METABOLIC PANEL Result Value Ref Range BUN 23 (H) 6 - 20 mg/dL Creatinine 0.9 0.5 - 1.0 mg/dL Estimated Glomerular Filtration Rate 65 >=60 mL/min Sodium 135 135 - 146 mmol/L Potassium 4.2 3.5 - 5.1 mmol/L Chloride 102 98 - 107 mmol/L CO2 25 22 - 32 mmol/L Anion Gap 8 7 - 15 mmol/L Glucose 122 (H) 70 - 120 mg/dL Calcium 8.1 (L) 8.4 - 10.2 mg/dL PHOSPHORUS Result Value Ref Range Phosphorus 2.7 2.5 - 4.8 mg/dL MAGNESIUM Result Value Ref Range Magnesium 2.3 1.5 - 2.6 mg/dL CALCIUM, IONIZED Result Value Ref Range Calcium, Ionized 1.16 1.13 - 1.32 mmol/L CBC Result Value Ref Range WBC 5.46 4.00 - 10.80 K/uL RBC 2.62 3.85 - 5.15 M/uL HGB 7.9 (L) 12.0 - 15.3 g/dL HCT 24.2 (L) 36.0 - 45.2 % MCV 92.4 81.5 - 97.5 fL MCH 30.2 27.0 - 34.0 pg MCHC 32.6 32.0 - 36.0 g/dL RDW 14.7 11.5 - 15.5 % PLT 52 (L) 140 - 400 K/uL MPV 11.7 6.6 - 11.1 fL nRBCs 0 <=0 /100 WBCs DIFFERENTIAL, AUTOMATED Result Value Ref Range WBC 5.46 4.00 - 10.80 K/uL Neutrophils % 77.7 (H) 40.0 - 75.0 % Lymphocytes % 8.4 (L) 18.0 - 42.0 % Monocytes % 10.3 1.0 - 11.0 % Eosinophils % 2.7 0.0 - 6.0 % Basophils % 0.4 0.0 - 2.0 % Immature Granulocytes % 0.5 0.0 - 2.0 % Absolute Neutrophils 4.24 1.80 - 7.70 K/uL Absolute Lymphocytes 0.46 (L) 1.00 - 4.80 K/ul Absolute Monocytes 0.56 0.00 - 1.10 K/uL Absolute Eosinophils 0.15 0.00 - 0.70 K/uL Absolute Basophils 0.02 0.00 - 0.20 K/uL Absolute Immature Granulocytes 0.03 0.00 - 0.20 K/uL BASIC METABOLIC PANEL Result Value Ref Range BUN 22 (H) 6 - 20 mg/dL Creatinine 0.8 0.5 - 1.0 mg/dL Estimated Glomerular Filtration Rate 73 >=60 mL/min Sodium 131 (L) 135 - 146 mmol/L Potassium 4.8 3.5 - 5.1 mmol/L Chloride 101 98 - 107 mmol/L CO2 22 22 - 32 mmol/L Anion Gap 8 7 - 15 mmol/L Glucose 152 (H) 70 - 120 mg/dL Calcium 8.2 (L) 8.4 - 10.2 mg/dL PHOSPHORUS Result Value Ref Range Phosphorus 3.0 2.5 - 4.8 mg/dL MAGNESIUM Result Value Ref Range Magnesium 2.4 1.5 - 2.6 mg/dL CBC Result Value Ref Range WBC 5.24 4.00 - 10.80 K/uL RBC 2.73 3.85 - 5.15 M/uL HGB 8.2 (L) 12.0 - 15.3 g/dL HCT 25.4 (L) 36.0 - 45.2 % MCV 93.0 81.5 - 97.5 fL MCH 30.0 27.0 - 34.0 pg MCHC 32.3 32.0 - 36.0 g/dL RDW 14.7 11.5 - 15.5 % PLT 57 (L) 140 - 400 K/uL MPV 11.9 6.6 - 11.1 fL nRBCs 0 <=0 /100 WBCs Assessment and Plan IMPRESSION/PLAN OF CARE : Principal Problem: Pseudocyst of pancreas Active Problems: HTN (hypertension) Aphasia as late effect of cerebrovascular accident Weight loss Acute pancreatitis Malnutrition of moderate degree (HCC) Chronic idiopathic thrombocytopenia (HCC) Ileus (HCC) Sjogren's syndrome (HCC) Resolved Problems: UTI (urinary tract infection) Patient admitted for pancreatitis and pancreatic pseudocyst. She underwent Axios stent placement yesterday. Ascites noted. Appreciate GI's help in management of patient Continue PPN until tolerating diet. Start with ice chips and sips May resume Eliquis/Plavix after 5 days, however high risk for bleeding Cipro and Flagyl x 5 days Restart home diuretics Closely monitor volume status Continue PPI Dysphagia screening Nutrition consult PT/OT and CM She will need a repeat CT scan of abdomen with contrast in 3 weeks to assure resolution of fluid collection. She will need a repeat EGD for stent removal in 3-4 weeks I have examined the patient and consistent with the dietitian's findings found malnutrition presentof Moderate (11/14/23 1006) degree. This is consistent with such due to Fat loss;Muscle loss;Inadequate energy intake (11/14/23 1006). I have also reviewed and agree with the dietitian's plan of carewhich include Monitored NPO/clear liquid status;Initiated parenteral nutrition support (11/14/23 1006). PHARMACOLOGIC VTE PROPHYLAXIS: SCD's. Angellaquis currently on hold for 5 days. CODE STATUS: Full Code EXPECTED DISCHARGE DATE: 11/19/2023 I spent a total of 60 minutes coordinating, documenting, and providing care for this patient excluding time spent in the performance of separately billed services. Patient's case and plan of care discussed with my attending, Dr. Lea. Associated attestation - Edy Lea DO - 11/16/2023 2:24 PM EDT I have reviewed the advanced practitioner's documentation on the date of service referenced in note, and I agree with, and take responsibility for the plan of care. I spent a total of 9 minutes coordinating, documenting, and providing care for this patient excluding time spent in the performance of separately billed services or time spent by another provider/QHP. Patient definitely appears generally improved when compared to yesterday prior to procedure. More interactive. Pain seems to be improved. Plan of care as outlined below * Tosha Fontaine PA-C - 11/16/2023 12:19 PM EDT PROGRESS NOTE - Gastroenterology Service [facility] [facility] [place] [id number] Name: Ally Luna Location: [facility] [id number] Date: 11/16/2023 Time: 12:19 PM SUBJECTIVE: The patient was seen and examined, chart reviewed. Overnight not acute events. Pt feels abd pain improving but she gives a very limited history. Nurses report no nausea vomiting hematemesis or melena, hematochezia. ROS: Limited d/t cognitive status as above OBJECTIVE: Vital Signs Last 24 Hours: Systolic BP: Most Recent Systolic BP Av mmHg Min: 94 mmHg Max: 132 mmHg Temperature: Most Recent Temperature Av.2 C Min: 35.61 C Max: 37.11 C Pulse: Pulse Av.9 Min: 7 Max: 100 Respirations: Resp Av.1 Min: 18 Max: 28 SpO2: SpO2 Av.2 % Min: 93 % Max: 99 % Constitutional: No acute distress. HEENT: No conjunctival pallor, sclera anicteric. CV: Heart is regular without murmur, rub or gallop. GI: Abdomen is soft, non-tender and bowel sounds normal. Extremities: No edema. Neurology: Awake and alert. Oriented to person, place, and time. No asterixis present. LABS: Labs reviewed as indicated below: Recent Results (from the past 24 hour(s)) BASIC METABOLIC PANEL Collection Time: 11/16/23 4:36 AM Result Value Ref Range BUN 22 (H) 6 - 20 mg/dL Creatinine 0.8 0.5 - 1.0 mg/dL Estimated Glomerular Filtration Rate 73 >=60 mL/min Sodium 131 (L) 135 - 146 mmol/L Potassium 4.8 3.5 - 5.1 mmol/L Chloride 101 98 - 107 mmol/L CO2 22 22 - 32 mmol/L Anion Gap 8 7 - 15 mmol/L Glucose 152 (H) 70 - 120 mg/dL Calcium 8.2 (L) 8.4 - 10.2 mg/dL PHOSPHORUS Collection Time: 11/16/23 4:36 AM Result Value Ref Range Phosphorus 3.0 2.5 - 4.8 mg/dL MAGNESIUM Collection Time: 11/16/23 4:36 AM Result Value Ref Range Magnesium 2.4 1.5 - 2.6 mg/dL CBC Collection Time: 11/16/23 4:36 AM Result Value Ref Range WBC 5.24 4.00 - 10.80 K/uL RBC 2.73 3.85 - 5.15 M/uL HGB 8.2 (L) 12.0 - 15.3 g/dL HCT 25.4 (L) 36.0 - 45.2 % MCV 93.0 81.5 - 97.5 fL MCH 30.0 27.0 - 34.0 pg MCHC 32.3 32.0 - 36.0 g/dL RDW 14.7 11.5 - 15.5 % PLT 57 (L) 140 - 400 K/uL MPV 11.9 6.6 - 11.1 fL nRBCs 0 <=0 /100 WBCs EGD/EUS 11/15/2023: - A large pseudocyst/WON was seen in the pancreatic tail treated by a 20 mm Axios stent Cystogastrostomy. - Ascites was found on endosonographic examination of the peritoneal cavity. IMPRESSION: Ally Luna is a(n) 83 year old female admitted as a transfer with pancreatitis andpancreatic pseudocyst for EUS with possible Axios stent placement. She is s/p EGD for treatment of large pseudocyst/WON in the pancreatic tail treated with Axios stent placement, ascites was found in the peritoneal cavity. Remains on PPN as she hasn't eaten in several weeks. Abd soft, nontender. RECOMMENDATIONS: - Perform an upper GI endoscopy in 4 weeks to remove the Axios stent. - Perform CT scan (computed tomography) of the abdomen with contrast in 3 weeks to assure resolution of the fluid collection. - May resume Eliquis/Plavix after 5 days however she is at very high risk for bleeding - PO ABx for 5 days. - Continue PPI. - Diuretics. - Defer to nutrition service about her diet; can keep on PPN thru the weekend, reassess at that point and consider advancing diet I have discussed the case with my attending, Dr Pagan. Associated attestation - Rosa Isela Pagan MD - 11/16/2023 12:35 PM EDT I have reviewed the advanced practitioner's documentation on the date of service referenced in note, and I agree with PE and plan as documented. S/p eus axios yesterday in to pancreatic pseudocyst. Further plan of care as documented. * Edy Lea DO - 11/15/2023 3:21 PM EDT Images from the original note were not included. [facility]/OR INTERVAL HISTORY: Patient was seen earlier today. Sleepy and drowsy. Is aware of plan procedure this afternoon Objective Physical Exam Most Recent Vital Signs: BP: 119 mmHg/70 mmHg (11/15/23 1305) Pulse: (see anesthesia note) (11/15/23 1511) Temp: 37.11 C (11/15/23 1305) Temp Summary: Temp Min: 36.1 C (97 F) Max: 37.1 C (98.8 F) SpO2: 97 % (11/15/23 1503) O2 flow rate: Supplemental O2 Delivery: Room Air, None (11/15/23 1503) Constitutional: (+) ill appearing CV: normal rate, normal rhythm Chest: normal respiratory effort, decreased breath sounds Abdomen: Generalized tenderness more so in left upper quadrant, mild distention, no significant rebound Extremities: no edema Neuro: alert, chronic expressive aphasia Peripheral Line Right Hand 22 Gauge (Active) Number of days: 2 Peripheral Line Lower;Right;Anterior Arm 20 Gauge (Active) Number of days: 2 STUDIES: Encounter Orders Labs and other studies reviewed with pertinent findings noted below: BNP reviewed, electrolytes and renal function stable CBC reviewed, hemoglobin 7.9, WBCs 5.4 Assessment and Plan IMPRESSION : Principal Problem: Pseudocyst of pancreas Active Problems: HTN (hypertension) Aphasia as late effect of cerebrovascular accident Weight loss Acute pancreatitis Malnutrition of moderate degree (HCC) Chronic idiopathic thrombocytopenia (HCC) Ileus (HCC) Sjogren's syndrome (HCC) Resolved Problems: UTI (urinary tract infection) I have examined the patient and consistent with the dietitian's findings found malnutrition presentof Moderate (11/14/23 1006) degree. This is consistent with such due to Fat loss;Muscle loss;Inadequate energy intake (11/14/23 1006). I have also reviewed and agree with the dietitian's plan of carewhich include Monitored NPO/clear liquid status;Initiated parenteral nutrition support (11/14/23 1006). DIFFERENTIAL AND PLAN: Patient with recent acute pancreatitis and subsequent pancreatic pseudocyst with ongoing pain. Anticipate ERCP with axiom stent placement this afternoon. Continue PPN until able to take orals Continue therapies PHARMACOLOGIC VTE PROPHYLAXIS: Apixaban CODE STATUS: Full Code EXPECTED DISCHARGE DATE: 11/20/2023 * Diego Leger [facility] - 11/15/2023 9:18 AM EDT PHARMACY PARENTERAL NUTRITION CONSULT [address] [address] Name: Ally Luna Date: 11/15/2023 at 9:18 AM PN per Pharmacy TBW: 89 kg ABW: 70 kg IBW: 57 kg Height: 165.1 cm BMI: 32.45 kg/m2 Age: 83 years Diabetic?: no Central or peripheral administration?: peripheral Goal PN parameters: Total Kcal: 486 Fluid: 2000 ml Macronutrients: Amino acids: 45 grams = 180 kcal (4 kcal/gram) = 37 % of total Carbohydrates: 90 grams = 306 kcal (3.4 kcal/gram) = 63 % of total Current PN parameters: Total Kcal: 486 (100 % goal) Fluid: 2000 ml (100 % goal) Macronutrients: Amino acids: 45 grams = 180 kcal (4 kcal/gram) = 100 % goal Carbohydrates: 90 grams = 306 kcal (3.4 kcal/gram) = 100 % goal Micronutrients Electrolytes Na: 100 meq K: 80 meq Phos: 21 mmol M meq Ca: 10 meq Acetate: 74 meq Cl: 75 meq Trace elements: 1 ml Infuvite multivitamin: 10 ml Dextrose mg/kg/min: 0.7 Osmolarity: 646 Contact the Pharmacy at extension [phone] if there are any questions. * Edy Lea DO - 11/14/2023 12:57 PM EDT Images from the original note were not included. [facility] [id number]/W INTERVAL HISTORY: Patient concerned having some abdominal bloating Objective Physical Exam Most Recent Vital Signs: BP: 118 mmHg/71 mmHg (11/14/23 1100) Pulse: 73 (11/14/23 1100) Temp: 36.11 C (11/14/23 1100) Temp Summary: Temp Min: 35.9 C (96.6 F) Max: 36.7 C (98.1 F) SpO2: 99 % (11/14/23 1100) O2 flow rate: Supplemental O2 Delivery: Room Air, None (11/14/23 1100) Constitutional: (+) ill appearing CV: normal rate, normal rhythm Chest: normal respiratory effort, decreased breath sounds Abdomen: (+) abnormal bowel sounds hypoactive, (+) distension, mild tympany , (+) tenderness general Extremities: no edema Neuro: alert, oriented to person, place, and time, generalized weakness Peripheral Line Right Hand 22 Gauge (Active) Number of days: 1 Peripheral Line Lower;Right;Anterior Arm 20 Gauge (Active) Number of days: 1 STUDIES: Encounter Orders Labs and other studies reviewed with pertinent findings noted below: Laboratory studies reviewed, Continue to monitor hemoglobin electrolytes Assessment and Plan IMPRESSION : Principal Problem: Pseudocyst of pancreas Active Problems: HTN (hypertension) Aphasia as late effect of cerebrovascular accident Weight loss Acute pancreatitis Malnutrition of moderate degree (HCC) Chronic idiopathic thrombocytopenia (HCC) Resolved Problems: UTI (urinary tract infection) I have examined the patient and consistent with the dietitian's findings found malnutrition presentof Moderate (11/14/23 1006) degree. This is consistent with such due to Fat loss;Muscle loss;Inadequate energy intake (11/14/23 1006). I have also reviewed and agree with the dietitian's plan of carewhich include Monitored NPO/clear liquid status;Initiated parenteral nutrition support (11/14/23 1006). DIFFERENTIAL AND PLAN: Patient with symptomatic pseudocyst status post recent acute pancreatitis Continue bowel rest Communication with nutrition, work with pharmacy to continue PPN Communication with GI, anticipating ERCP with possible stent draining tomorrow Continue to monitor laboratory studies Physical therapy and occupational therapy consults, patient was generalized deconditioning due to her recent acute illness PHARMACOLOGIC VTE PROPHYLAXIS: Apixaban CODE STATUS: Full Code EXPECTED DISCHARGE DATE: 11/20/2023 * Diego Leger, [facility] - 11/14/2023 11:56 AM EDT PHARMACY PARENTERAL NUTRITION CONSULT [address] [address] Name: Ally Luna Date: 11/14/2023 at 11:48 AM PN per Pharmacy TBW: 89 kg ABW: 70 kg IBW: 57 kg Height: 165.1 cm BMI: 32.45 kg/m2 Age: 83 years Diabetic?: no Central or peripheral administration?: peripheral Goal PN parameters: Total Kcal: 486 Fluid: 2000 ml Macronutrients: Amino acids: 45 grams = 180 kcal (4 kcal/gram) = 37 % of total Carbohydrates: 90 grams = 306 kcal (3.4 kcal/gram) = 63 % of total Current PN parameters: Total Kcal: 486 (100 % goal) Fluid: 2000 ml (100 % goal) Macronutrients: Amino acids: 45 grams = 180 kcal (4 kcal/gram) = 100 % goal Carbohydrates: 90 grams = 306 kcal (3.4 kcal/gram) = 100 % goal Micronutrients Electrolytes Na: 80 meq K: 80 meq Phos: 18 mmol M meq Ca: 10 meq Acetate: 66 meq Cl: 67.6 meq Trace elements: 1 ml Infuvite multivitamin: 10 ml Dextrose mg/kg/min: 0.7 Osmolarity: 628 Contact the Pharmacy at extension [phone] if there are any questions. documented in this encounter H&P Notes * Margaret Shah, - 11/22/2023 1:32 PM EDT Endoscopy Pre-Procedure Assessment Name: Ally Luna Date: 11/22/2023 Time: 1:32 PM Procedure(s): Upper GI Endoscopy; with Indication(s) of evaluation and management of GI bleeding and/or iron-deficiency anemia Endoscopy Pre-Procedure Assessment: Prior to the procedure, the patient is identified. The patient's history, medications and allergieshave been reviewed. The patient is competent. The risks and benefits of the proposed procedure and the planned sedation have been discussed with the patient. All questions have been answered and informed consent for the procedure has been obtained. Prior to Admission medications Medication Sig Last Dose Discont. Mirtazapine 7.5 MG Oral Tablet (Remeron) Take 1 Tablet by mouth at bedtime. Atorvastatin Calcium 40 MG Oral Tablet (Lipitor) Take 1 Tablet by mouth at bedtime. 11/12/2023 Benzonatate 100 MG Oral Capsule (Tessalon Perles) Take 1 Capsule by mouth 2 times a day as needed for Cough. Creon [id number] UNIT Oral Capsule Delayed Release Particles Take 1 Capsule by mouth in the morningand 1 Capsule at noon and 1 Capsule in the evening and 1 Capsule before bedtime. 11/13/2023 Furosemide 40 MG Oral Tablet (Lasix) Take 1 Tablet by mouth in the morning. 11/13/2023 Montelukast Sodium 10 MG Oral Tablet (Singulair) Take 1 Tablet by mouth daily at noon. 11/13/2023 oxyBUTYnin Chloride 5 MG Oral Tablet (Ditropan) Take 1 Tablet by mouth at bedtime. 11/12/2023 Pantoprazole Sodium 40 MG Oral Tablet Delayed Release (Protonix) Take 1 Tablet by mouth daily firstthing in the morning. 11/13/2023 Spironolactone 100 MG Oral Tablet (Aldactone) Take 1 Tablet by mouth in the morning. 11/13/2023 Align 4 MG Oral Capsule Take 1 Capsule by mouth in the morning. Held Biotinex Oral Capsule Take by mouth 1,000 mcg 2 times a day . Held Apixaban 5 MG Oral Tablet (Eliquis) Take 1 Tablet by mouth in the morning and 1 Tablet before bedtime. Held Carvedilol 25 MG Oral Tablet (Coreg) Take 1 Tablet by mouth in the morning and 1 Tablet before bedtime. Taking everyday. 11/13/2023 Albuterol Sulfate 108 (90 Base) MCG/ACT Inhalation Aerosol Powder Breath Activated Inhale 2 Puffs by mouth every 6 hours as needed for Wheezing. Amoxicillin 500 MG Oral Capsule (AMOXIL) Take 1 Capsule by mouth as needed (Take 4 capsules 1 hour prior to dental appt). Unknown Asmanex (120 Metered Doses) 220 MCG/INH Inhalation Aerosol Powder Breath Activated (Mometasone Furoate) Inhale 2 Puffs by mouth in the morning and 2 Puffs before bedtime. 11/13/2023 busPIRone HCl 5 MG Oral Tablet (BUSPAR) Take 1 Tablet by mouth in the morning and 1 Tablet before bedtime. 11/13/2023 Ferrous Sulfate 325 (65 Fe) MG Oral Tablet (FEOSOL) Take 1 Tablet by mouth daily at noon. 11/13/2023 Levothyroxine Sodium 100 MCG Oral Capsule (Tirosint) Take 1 Capsule by mouth daily first thing in the morning. (at least 30 min prior to breakfast or other meds) 11/13/2023 LORazepam 0.5 MG Oral Tablet (ATIVAN) Take 1 Tablet by mouth every 12 hours as needed for Anxiety. Past Month Prevagen 10 MG Oral Capsule (Apoaequorin) Take by mouth. Takes two in the am Resveratrol 100 MG Oral Capsule Take by mouth. Takes two daily B-12 500 MCG Oral Tablet Take by mouth 2 times a day . Nelia-C Oral Tablet Take by mouth 1 Tablet daily . 500 mg Grapeseed Extract 500-50 MG Oral Capsule Take by mouth 100 mg 2 times a day . L-Lysine 500 MG Oral Capsule Take by mouth daily . Lutein 10 MG Oral Tablet Take by mouth 6 mg daily . Ocuvite Adult 50+ Oral Capsule Take 1 Capsule by mouth in the morning. Vitamin D3 25 MCG (1000 UT) Oral Capsule Take by mouth 2 times a day . Zinc 50 MG Oral Capsule Take 1 Capsule by mouth in the morning. Citracal Petites/Vitamin D 200-250 MG-UNIT Oral Tablet (Calcium Citrate-Vitamin D) Take 1 Tab by mouth 2 times a day. Coenzyme Q10 100 MG Oral Capsule Take 1 Capsule by mouth in the morning. Docusate Sodium 100 MG Oral Tablet Take 1 Tablet by mouth in the morning. Losartan Potassium 100 MG Oral Tablet (COZAAR) Take 0.5 Tablets by mouth in the morning and 0.5 Tablets before bedtime. Takes 100 mg in the pm with dinner. Review of patient's allergies indicates: Allergen Reactions Bactrim [Sulfamethoxazole-Trimethoprim] Nausea/vomiting BP 103/70 | Pulse 82 | Temp 36 C (96.8 F) (Temporal Artery) | Resp 16 | Ht 1.651 m (5' 5") | Wt95.4 kg (210 lb 4.8 oz) | SpO2 97% | BMI 35.00 kg/m | BSA 2.09 m Physical Exam: Mental Status Examination: alert and oriented. Airway Examination: normal oropharyngeal airway and neck mobility. Respiratory Examination: poor air movement. CV Examination: systolic murmur. ASA Grade: IV - A patient with severe systemic disease that is a constant threat to life. Abdomen: nontender This patient has undergone a preprocedural evaluation. A determination has been made to proceed with the planned procedure under [facility] procedural guidelines and the [facility] Non-Emergent, Elective Medical Services and Treatment Recommendations (published on 09-23-19). The community and hospital prevalence of COVID-19 has been discussed as well as this patient's specific risks associated with SARS-CoV-19 infection. Based upon the clinical acuity and patient-specific care considerations, this procedure is deemed a Tier I - High acuity treatment or service with immediate threat to life or threat of severe progressive disease. Lack of treatment or service would result in patient harm. After reviewing the risks and benefits, the patient is deemed in satisfactory condition to undergo the procedure. The anesthesia plan is to use general anesthesia. We have discussed the risks and benefits of upper endoscopy to include bleeding, infection, perforation, discomfort, aspiration and need for follow-up studies. Have discussed the increased risk of perioperative complications given the patient's comorbid medical history, history of severe pancreatitis requiring pseudocyst drainage andthe need for urgent upper endoscopy. Margaret Shah DO 11/22/2023 * Baljit Fernando MD - 11/15/2023 2:10 PM EDT Endoscopy Pre-Procedure Assessment Name: Ally Luna Date: 11/15/2023 Time: 2:10 PM Procedure(s): Endoscopic Ultrasound; with Indication(s) of EUS drainage of peripancreatic pseudocyst with Axios stent Endoscopy Pre-Procedure Assessment: Prior to the procedure, the patient was identified. The patient's history, medications and allergies were reviewed as per the Anesthesia Assessment. The patient is not competent. The risks and benefits of the proposed procedure and the planned sedation were discussed with the patient's son. All questions were answered and informed consent for the procedure was obtained. BP 119/70 | Pulse 72 | Temp 37.1 C (98.8 F) (Temporal Artery) | Resp 18 | Ht 1.651 m (5' 5") | Wt 88.5 kg (195 lb) | SpO2 98% | BMI 32.45 kg/m | BSA 2.01 m Review of patient's allergies indicates: Allergen Reactions Bactrim [Sulfamethoxazole-Trimethoprim] Nausea/vomiting Prior to Admission medications Medication Sig Last Dose Discont. Atorvastatin Calcium 40 MG Oral Tablet (Lipitor) Take 1 Tablet by mouth at bedtime. 11/12/2023 Benzonatate 100 MG Oral Capsule (Tessalon Perles) Take 1 Capsule by mouth 2 times a day as needed for Cough. Creon [id number] UNIT Oral Capsule Delayed Release Particles Take 1 Capsule by mouth in the morningand 1 Capsule at noon and 1 Capsule in the evening and 1 Capsule before bedtime. 11/13/2023 Furosemide 40 MG Oral Tablet (Lasix) Take 1 Tablet by mouth in the morning. 11/13/2023 Montelukast Sodium 10 MG Oral Tablet (Singulair) Take 1 Tablet by mouth daily at noon. 11/13/2023 oxyBUTYnin Chloride 2.5 MG Oral Tablet Take 5 mg by mouth at bedtime. 11/12/2023 Pantoprazole Sodium 40 MG Oral Tablet Delayed Release (Protonix) Take 1 Tablet by mouth daily firstthing in the morning. 11/13/2023 Spironolactone 100 MG Oral Tablet (Aldactone) Take 1 Tablet by mouth in the morning. 11/13/2023 Align 4 MG Oral Capsule Take 1 Capsule by mouth in the morning. Held Biotinex Oral Capsule Take by mouth 1,000 mcg 2 times a day . Held Apixaban 5 MG Oral Tablet (Eliquis) Take 1 Tablet by mouth in the morning and 1 Tablet before bedtime. Held Carvedilol 25 MG Oral Tablet (Coreg) Take 1 Tablet by mouth in the morning and 1 Tablet before bedtime. Taking everyday. 11/13/2023 Albuterol Sulfate 108 (90 Base) MCG/ACT Inhalation Aerosol Powder Breath Activated Inhale 2 Puffs by mouth every 6 hours as needed for Wheezing. Asmanex (120 Metered Doses) 220 MCG/INH Inhalation Aerosol Powder Breath Activated (Mometasone Furoate) Inhale 2 Puffs by mouth in the morning and 2 Puffs before bedtime. 11/13/2023 busPIRone HCl 5 MG Oral Tablet (BUSPAR) Take 1 Tablet by mouth in the morning and 1 Tablet before bedtime. 11/13/2023 Ferrous Sulfate 325 (65 Fe) MG Oral Tablet (FEOSOL) Take 1 Tablet by mouth daily at noon. 11/13/2023 Levothyroxine Sodium 100 MCG Oral Capsule (Tirosint) Take 1 Capsule by mouth daily first thing in the morning. (at least 30 min prior to breakfast or other meds) 11/13/2023 LORazepam 0.5 MG Oral Tablet (ATIVAN) Take 1 Tablet by mouth every 12 hours as needed for Anxiety. Past Month Prevagen 10 MG Oral Capsule (Apoaequorin) Take by mouth. Takes two in the am Resveratrol 100 MG Oral Capsule Take by mouth. Takes two daily B-12 500 MCG Oral Tablet Take by mouth 2 times a day . Nelia-C Oral Tablet Take by mouth 1 Tablet daily . 500 mg Grapeseed Extract 500-50 MG Oral Capsule Take by mouth 100 mg 2 times a day . L-Lysine 500 MG Oral Capsule Take by mouth daily . Lutein 10 MG Oral Tablet Take by mouth 6 mg daily . Ocuvite Adult 50+ Oral Capsule Take 1 Capsule by mouth in the morning. Vitamin D3 25 MCG (1000 UT) Oral Capsule Take by mouth 2 times a day . Zinc 50 MG Oral Capsule Take 1 Capsule by mouth in the morning. Amoxicillin 500 MG Oral Capsule (AMOXIL) Take 500 mg by mouth as needed (Take 4 capsules 1 hour prior to dental appt). Citracal Petites/Vitamin D 200-250 MG-UNIT Oral Tablet (Calcium Citrate-Vitamin D) Take 1 Tab by mouth 2 times a day. Coenzyme Q10 100 MG Oral Capsule Take 1 Capsule by mouth in the morning. Cranberry 1000 MG Oral Capsule Take 1,000 mg by mouth daily. Docusate Sodium 100 MG Oral Tablet Take 1 Tablet by mouth in the morning. Losartan Potassium 100 MG Oral Tablet (COZAAR) Take 0.5 Tablets by mouth in the morning and 0.5 Tablets before bedtime. Takes 100 mg in the pm with dinner. Physical Exam: Mental Status Examination: alert. Airway Examination: normal oropharyngeal airway and neck mobility. Respiratory Examination: clear to auscultation. CV Examination: Regular rate and rythm, no murmurs. ASA Grade: III - A patient with severe systemic disease. After reviewing the risks and benefits, the patient was deemed in satisfactory condition to undergothe procedure. The anesthesia plan was to use general anesthesia. Patient's son was explained in detail regarding risks, benefits, limitations and alternatives of the above endoscopic procedure. Risks of intravenous sedation used for procedure were also explained. Risks include, but not limited to perforation, bleeding, infection, respiratory distress, cardiac arrest and . Risk of acute pancreatitis and necrosis if ERCP is done. Patient is also aware aboutthe possibility of missed lesion. Patient's son questions were answered. The patient's son verbalized understanding the information and agreed to undergo the procedure. Discussed with the patient's son that he/she is at an explicit higher risk for complications in comparison to other patients. Explained risk of infected necrosis, stent migration and bleeding. Baljit Fernando MD 11/15/2023 * Marilynn Alvarado CRNP - 11/13/2023 3:34 PM EDT Images from the original note were not included. [facility] [id number] PRESENTING PROBLEM: Abdominal pain HPI: Ally Luna, is an 83-year-old female w/PMHx chronic pancreatitis, anxiety, paresthesias, GERD, hypertension, dysphagia, fatigue, atrial tachycardia, artificial valve (on Eliquis), pacemaker, TIA, CVA x 2 2022, Sjogren's, left breast cancer, and anemia who presents today as a transfer from [facility] today for acute pancreatitis with pseudocyst requiring an ERCP. Patient originally went to [facility] because she could not get into the Gastroenterology cleared for 4 months. Patient lives with her and son. Patient reported she has not been able totolerate food and has for several days and has noted weight loss. Patient received PPN while at [facility] due to unable to tolerate clear liquids. Patient was taking Eliquis for her heart valve but that was discontinued at [facility] and Plavix is on hold as of 11/12/23.. No previous history of a DVT or PE. Patient currently has some tenderness in her upper abdomen area. Denies fevers, headaches, chest pain,or diarrhea. Per chart review, patient was recently treated for acute pancreatitis in [facility] t in September of 2023. Per chart review, patient has lost 60 lbs of weight loss over the past 6months per family Patient was also treated for UTI proteus, isolated pansensitive and was treated with Rocephin IV and ordered a veronica catheter for urinary incontinence. GI service recommended transferred to tertiary care center for EUS procedure and possible ERCP. Hospital medicine was consulted on and will admit patient medical management and treatment. Subjective Patient's past history, medications, and allergies were reviewed. Objective Physical Exam Most Recent Vital Signs: BP: 101 mmHg/66 mmHg (11/13/23 1424) Pulse: 70 (11/13/23 1424) Temp: 36.22 C (11/13/23 1424) Temp Summary: Temp Min: 36.2 C (97.2 F) Max: 36.2 C (97.2 F) SpO2: 97 % (11/13/23 142) O2 flow rate: Supplemental O2 Delivery: Room Air, None (11/13/231423) Physical Exam Constitutional: General: She is awake. Appearance: Normal appearance. She is not ill-appearing or toxic-appearing. HENT: Head: Normocephalic. Mouth/Throat: Mouth: Mucous membranes are moist. Pharynx: Oropharynx is clear. No oropharyngeal exudate or posterior oropharyngeal erythema. Eyes: Conjunctiva/sclera: Conjunctivae normal. Pupils: Pupils are equal, round, and reactive to light. Cardiovascular: Rate and Rhythm: Normal rate and regular rhythm. Heart sounds: Normal heart sounds, S1 normal and S2 normal. No murmur heard. Pulmonary: Effort: Pulmonary effort is normal. Breath sounds: Normal breath sounds. Abdominal: General: Bowel sounds are normal. There is distension. Palpations: Abdomen is soft. Tenderness: There is generalized abdominal tenderness and tenderness in the right upper quadrant and left upper quadrant. Musculoskeletal: Cervical back: Full passive range of motion without pain, normal range of motion and neck supple. Right lower leg: No edema. Left lower leg: No edema. Skin: General: Skin is warm and dry. Capillary Refill: Capillary refill takes less than 2 seconds. Findings: Ecchymosis present. Neurological: General: No focal deficit present. Mental Status: She is alert. Comments: Right sided weakness. Patient uses a cane/walker to ambulate. Psychiatric: Speech: Speech normal. Behavior: Behavior is cooperative. Peripheral Line Right Hand 22 Gauge (Active) Number of days: 0 Peripheral Line Lower;Right;Anterior Arm 20 Gauge (Active) Number of days: 0 STUDIES: Encounter Orders Labs and other studies reviewed personally myself with pertinent findings noted below: Results for orders placed or performed during the hospital encounter of 11/13/23 CBC Result Value Ref Range WBC 8.07 4.00 - 10.80 K/uL RBC 3.19 3.85 - 5.15 M/uL HGB 9.5 (L) 12.0 - 15.3 g/dL HCT 29.2 (L) 36.0 - 45.2 % MCV 91.5 81.5 - 97.5 fL MCH 29.8 27.0 - 34.0 pg MCHC 32.5 32.0 - 36.0 g/dL RDW 14.5 11.5 - 15.5 % PLT 73 (L) 140 - 400 K/uL MPV 11.2 6.6 - 11.1 fL nRBCs 0 <=0 /100 WBCs COMPREHENSIVE METABOLIC PANEL Result Value Ref Range BUN 29 (H) 6 - 20 mg/dL Creatinine 0.9 0.5 - 1.0 mg/dL Estimated Glomerular Filtration Rate 63 >=60 mL/min Sodium 134 (L) 135 - 146 mmol/L Potassium 3.9 3.5 - 5.1 mmol/L Chloride 100 98 - 107 mmol/L CO2 23 22 - 32 mmol/L Anion Gap 11 7 - 15 mmol/L Glucose 116 70 - 120 mg/dL Albumin 3.2 (L) 3.8 - 5.0 g/dL AST 24 10 - 35 U/L Alkaline Phosphatase 75 35 - 130 U/L Bilirubin, Total 0.5 <=1.2 mg/dL Calcium 8.2 (L) 8.4 - 10.2 mg/dL Protein 6.0 6.0 - 8.3 g/dL ALT 12 10 - 35 U/L MAGNESIUM Result Value Ref Range Magnesium 2.0 1.5 - 2.6 mg/dL PHOSPHORUS Result Value Ref Range Phosphorus 2.5 2.5 - 4.8 mg/dL APTT Result Value Ref Range aPTT 31 21 - 38 seconds PT INR Result Value Ref Range Prothrombin Time 20.3 (H) 11.6 - 15.2 seconds INR 1.7 (H) 0.8 - 1.2 XR CHEST 1 VIEW Final Result PROCEDURE INFORMATION: Exam: XR Chest Exam date and time: 11/13/2023 2:47 PM Age: 83 years old Clinical indication: Other: Admission; Pre-op; Additional info: Here for ercp TECHNIQUE: Imaging protocol: Radiologic exam of the chest. Views: 1 view. COMPARISON: DX (CXR AP X-CRAIG GRID, CHEST, CXR AP GRID Crosswise) 07/14/2020 5:28 AM FINDINGS: Tubes, catheters and devices: A pacemaker device is present, and its leads are in appropriate position. Lungs: Low lung volumes with atelectatic changes. Chronic changes of the lung parenchyma. Pleural spaces: Unremarkable. No pleural effusion. No pneumothorax. Heart/Mediastinum: TAVR Bones/joints: There are moderate degenerative changes present. IMPRESSION IMPRESSION: Atelectasis and chronic appearing changes of the lung parenchyma. THIS DOCUMENT HAS BEEN ELECTRONICALLY SIGNED BY TI WEAVER MD Assessment and Plan IMPRESSION: Principal Problem: Acute pancreatitis Active Problems: Aortic stenosis Breast cancer (HCC) HTN (hypertension) Abdominal pain, LUQ Aphasia as late effect of cerebrovascular accident Cardiac pacemaker Weight loss UTI (urinary tract infection) Thrombocytopenia (HCC) Resolved Problems: * No resolved hospital problems. * DIFFERENTIAL AND PLAN: -Admit patient to Med/Surg -GI consult for acute pancreatitis with pseudocyst requiring EUS with ERCP with possible stent placement -Keep NPO except meds -IV fluids -CBC,CMP, Mag. phos and PT INR now -Chest x-ray now -EKG now -Hold furosemide and spironolactone at this time due to softer blood pressures -Continue to hold apixaban and and Plavix -Care management consult for discharge planning. PHARMACOLOGIC VTE PROPHYLAXIS: Apixaban CODE STATUS: Full Code EXPECTED DISCHARGE DATE: No information available I spent a total of 80 minutes coordinating, documenting, and providing care for this patient excluding time spent in the performance of separately billed services. Case and treatment plan discussed with attending, Dr. Steen. GEREMIAS Paulino Associated attestation - Pankaj Steen MD - 11/13/2023 5:01 PM EDT I have reviewed the advanced practitioner's documentation on the date of service referenced in note, and I agree with, and take responsibility for the plan of care. Nutrition consult for possible now nutrition and history of PPN at [facility] I spent a total of 15 minutes coordinating, documenting, and providing care for this patient excluding time spent in the performance of separately billed services or time spent by another provider/QHP. documented in this encounter Procedure Notes * Baljit Fernando MD - 11/22/2023 1:53 PM EDTAssociated Order(s): UPPER GI ENDOSCOPY [facility] Patient Name: Ally Luna Procedure Date: 11/22/2023 1:53 PM Date of : 1940 Admit Type: Inpatient Note Status: Finalized Date of : 1940 Admit Type: Inpatient Age: 83 Room: OR 1 Gender: Female Note Status: Finalized Procedure: Upper GI endoscopy Indications: Melena Providers: Margaret Shah DO (Doctor) Referring MD: Pankaj Steen MD, Baljit Fernando MD Complications: No immediate complications. Estimated blood loss: Minimal. Procedure: Pre-Anesthesia Assessment: - Prior to the procedure, a History and Physical was performed, and patient medications, allergies and sensitivities were reviewed. The patient's tolerance of previous anesthesia was reviewed. - The risks and benefits of the procedure and the sedation options and risks were discussed with the patient. All questions were answered and informed consent was obtained. - Patient identification and proposed procedure were verified prior to the procedure by the physician, the nurse and the scientific informatics leader. The procedure was verified in the procedure room. - Pre-procedure physical examination revealed no contraindications to sedation. - ASA Grade Assessment: IV - A patient with severe systemic disease that is a constant threat to life. - After reviewing the risks and benefits, the patient was deemed in satisfactory condition to undergo the procedure. - The anesthesia plan was to use general anesthesia. - Immediately prior to administration of medications, the patient was re- assessed for adequacy to receive sedatives. - The heart rate, respiratory rate, oxygen saturations, blood pressure, adequacy of pulmonary ventilation, and response to care were monitored throughout the procedure. - The physical status of the patient was re-assessed after the procedure. After obtaining informed consent, the endoscope was passed under direct vision. All instruments were visually inspected immediately before and after removal from the patient to ensure they are fully intact. Throughout the procedure, the patient's blood pressure, pulse, and oxygen saturations were monitored continuously. The was introduced through the mouth, and advanced to the third part of duodenum. The upper GI endoscopy was accomplished without difficulty. The patient tolerated the procedure well. Findings & Specimens: The upper third of the esophagus and middle third of the esophagus were normal. A mild Schatzki ring was found at the gastroesophageal junction. A medium-sized hiatal hernia was found. The proximal extent of the gastric folds (end of tubular esophagus) was 34 cm from the incisors. The hiatal narrowing was 38 cm from the incisors. The Z-line was 34 cm from the incisors. A plastic stent was found in the gastric body (previously placed solus stent), as the stent had migrated out of the Axios, removal from the stomach was accomplished with a Raptor grasping device. A previously placed cystgastrostomy stent (Axios) was found on the posterior wall of the gastric body. The stent appeared to be intact and in an appropriate position without evidence of bleeding or old blood. There is no endoscopic evidence of bleeding in the entire examined stomach. The examined duodenum was normal. Impression: - Normal upper third of esophagus and middle third of esophagus. - Mild Schatzki ring. - Medium-sized hiatal hernia. - Pre-existing gastric stent, removed. - Pre-existing gastric stent. - Normal examined duodenum. Recommendation: - [facility]. - Full liquid diet today then only a low residue diet thereafter. - Observe patient's clinical course following today's procedure with therapeutic intervention. - may discontinue proton pump inhibitor - hold anticoagulation and antiplatelet agents for 1 week - if rebleeding occurs would recommend a tagged RBC study and referral to a center with Interventional Radiology support Margaret Shah DO 11/22/2023 2:19:40 PM This report has been signed electronically. Estimated Blood Loss: Estimated blood loss was minimal. * Edy Lea, - 11/15/2023 2:12 PM EDTAssociated Order(s): UPPER ENDOSCOPIC [facility] Patient Name: Ally Luna Procedure Date: 11/15/2023 2:12 PM Date of : 1940 Admit Type: Outpatient Note Status: Finalized Date of : 1940 Admit Type: Outpatient Age: 83 Room: OR 2 Gender: Female Note Status: Finalized Procedure: Upper EUS Indications: For cyst enterostomy, For stent placement Providers: Baljit Fernando MD (Doctor), Herbert Oviedo RN Referring MD: Edy Lea MD Medicines: General Anesthesia Complications: No immediate complications. Procedure: Pre-Anesthesia Assessment: - Prior to the procedure, a History and Physical was performed, and patient medications, allergies and sensitivities were reviewed. The patient's tolerance of previous anesthesia was reviewed. - The alternatives, risks and benefits of the procedure were discussed at length with the patient's son. The patient's proxy verbalized understanding of the risks as well as the alternatives and wished to proceed with the procedure. - Patient identification and proposed procedure were verified prior to the procedure by the physician and the nurse. The procedure was verified in the procedure room. - Pre-procedure physical examination revealed no contraindications to sedation. After obtaining informed consent, the endoscope was passed under direct vision. All instruments were visually inspected immediately before and after removal from the patient to ensure they are fully intact. Throughout the procedure, the patient's blood pressure, pulse, and oxygen saturations were monitored continuously. The Endosonoscope was introduced through the mouth, and advanced to the second part of duodenum. The upper EUS was accomplished without difficulty. The patient tolerated the procedure well. Findings & Specimens: ENDOSCOPIC FINDING: : The examined esophagus was normal. The entire examined stomach was normal. The duodenal bulb and second portion of the duodenum were normal. ENDOSONOGRAPHIC FINDING: : The endosonographic exam of the common bile duct showed diffused thickening around the duct likely related to pancreatitis. The maximum diameter of the duct was 6 mm. Evidence of a previous cholecystectomy was identified endosonographically. There was no sign of significant endosonographic abnormality in the visualized portion of the liver. Homogeneous parenchyma was identified. Pancreatic parenchymal abnormalities were noted in the entire pancreas. These consisted of diffuse echogenicity. An anechoic lesion suggestive of a pseudocyst was identified in the pancreatic tail. The lesion measured 90 mm by 100 mm in maximal cross-sectional diameter. There was a single compartment without septae. The outer wall of the lesion was thick. There was no associated mass. There was internal debris within the fluid-filled cavity. The decision was made to create a cystogastrostomy using the AXIOS stent system. Once an appropriate position in the stomach was identified, the common wall between the stomach and the cyst was interrogated utilizing color Doppler imaging to identify interposed vessels. The stomach wall and the cyst were punctured under endosonographic guidance. A wire was inserted into the cyst under fluoroscopic guidance. The AXIOS stent and electrocautery device was introduced through the working channel and advanced over the guidewire. Current was applied to the cautery tip and then used to increase the diameter of the stoma. The AXIOS device was advanced into the cyst, and a 20 x10 mm AXIOS stent was placed with the flanges in close approximation to the figueroa of the cyst and the stomach through the cystogastrostomy. The stent was successfully placed. A TTS dilator was passed through the scope. Dilation with a 12-13.5-15 mm balloon dilator was performed to 15 mm. A 10 Fr x 5 cm double pigtail plastic stent was placed. A small amount of fluid, visualized as an anechoic feature, was found in the peritoneal cavity. Impression: - A large pseudocyst/WON was seen in the pancreatic tail treated by a 20 mm Axios stent Cystogastrostomy. - Ascites was found on endosonographic examination of the peritoneal cavity. Recommendation: - [facility] to [facility] care. - Perform CT scan (computed tomography) of the abdomen with contrast in 3 weeks to assure resolution of the fluid collection. - Perform an upper GI endoscopy in 4 weeks to remove the Axios stent. - May resume Eliquis/Plavix after 5 days however she is at very high risk for bleeding. - PO ABx for 5 days. - Continue PPI. - Diuretics. Baljit Fernando MD 11/15/2023 4:03:02 PM This report has been signed electronically. Estimated Blood Loss: Estimated blood loss: none. * Perry Verde DO - 11/13/2023 3:54 PM EDTAssociated Order(s): EKG REASON FOR STUDY: Chest pain CONCLUSIONS: Atrial sense ventricular paced rhythm with prolonged AV conduction Abnormal ECG When compared with ECG of 15-Jul-2020 08:11, Electronic pacemaker has replaced sinus rhythm Ventricular Rate: 81 Atrial Rate: 81 SC Interval: 266 QRS Duration: 156 QT/QTc: 448/520 ms P-R-T [place]: 27 : 45 : 147 degrees documented in this encounter Consult Notes * Irene Sinclair MD - 11/21/2023 12:29 PM EDTAssociated Order(s): NEPHROLOGY CONSULT IP Reason for Consult: Hyponatremia and CHRIS History of Present Illness: This is 83-year-old female with history of hypertension, chronic pancreatitis, anxiety, aortic valve replacement on Eliquis, CVA twice in 2002, Sjogren's, left breast cancer and normal renal functionat baseline who was admitted on 11/13/2023 as a transfer from [facility] with the acute on chronic pancreatitis. Sodium was normal on admission but has slowly dropped to 125 this morning. Creatinine also up trending to 1.4 from baseline of 0.8. She has mild abdominal pain. Appetite is poor. No shortnessof breath. Legs are swollen. Review of Systems General ROS: negative for - chills or fever Psychological ROS: negative for - mood swings ENT ROS: negative for - nasal congestion or nasal discharge Endocrine ROS: negative Respiratory ROS: no cough, shortness of breath, or wheezing Cardiovascular ROS: no chest pain or dyspnea on exertion Gastrointestinal ROS: +poor appetite Genito-Urinary ROS: no dysuria, trouble voiding, or hematuria Musculoskeletal ROS: negative for - muscle pain Neurological ROS: no TIA or stroke symptoms Dermatological ROS: negative for rash Past Medical History Past Medical History: Diagnosis Date Aortic stenosis History of left breast cancer HTN (hypertension) Sjogren's disease (HCC) Past Surgical History Past Surgical History: Procedure Laterality Date COLONOSCOPY, DIAGNOSTIC (RECTUM) 10/12/2017 normal/[facility] EGD, FLEXIBLE, W/CYST DRAINAGE N/A 11/15/2023 ESOPHAGOGASTRODUODENOSCOPY (EGD), FLEXIBLE, TRANSORAL, WITH DRAINAGE PSEUDOCYST performed by Baljit Fernando MD at OR [facility] EGD, W/ENDOSCOPIC US N/A 11/15/2023 ESOPHAGOGASTRODUODENOSCOPY (EGD), FLEXIBLE, TRANSORAL, ENDOSCOPIC ULTRASOUND performed by Baljit Fernando MD at OR [facility] MASTECTOMY,RADICAL Left REPLACE AORTIC VALVE, PERCUTANEOUS FEMORAL N/A 07/13/2020 REPLACE AORTIC VALVE, PERCUTANEOUS FEMORAL performed by Cesar Laurent MD at [facility] REPLACE AORTIC VALVE, PERCUTANEOUS FEMORAL 07/13/2020 REPLACE AORTIC VALVE, PERCUTANEOUS FEMORAL performed by Matthew Allan MD at [facility] Current Medications Current Facility-Administered Medications Medication Dose Route Frequency Provider Pantoprazole (Protonix) 80 mg in NSS 100 mL ivpb 80 mg IV Piggyback Once Rudy Lora CRNP Pantoprazole (Protonix) 80 mg in NSS 500 mL INFUSION 8 mg/hr Intravenous Continuous Chet Lora CRNP Sucralfate (Carafate) susp 1,000 mg 1 g Oral AC & HS Rudy Lora CRNP Urea (Ure-Na) powder packet 15 g 15 g Oral BID(AM/PM) Irene Sinclair MD LiquaCel 30 mL Oral BID(AM/PM) Edy Lea DO metoclopramide (Reglan) tab 5 mg 5 mg Oral AC & HS Rashida Stevenson CRNP melatonin tab 3 mg 3 mg Oral HS PRN Erick Doran MD HYDROmorphone (Dilaudid) tab 2 mg 2 mg Oral Q4H PRN Edy Lea DO Mirtazapine (Remeron) tab 7.5 mg 7.5 mg Oral HS Edy Lea DO senna-docusate (Senokot-S) 1 Tablet 1 Tablet Oral BID(AM/PM) Rashida Stevenson CRNP Acetaminophen (Tylenol) tab 650 mg 650 mg Oral Q6H PRN Marilynn Alvarado CRNP atorvaSTATin (Lipitor) tab 40 mg 40 mg Oral HS Marilynn Alvarado CRNP Benzonatate (Tessalon Perles) cap 100 mg 100 mg Oral BID PRN Marilynn Alvarado CRNP busPIRone (Buspar) tab 5 mg 5 mg Oral BID(AM/PM) Marilynn Alvarado CRNP Carvedilol (Coreg) tab 25 mg 25 mg Oral BID(AM/PM) Marilynn Alvarado CRNP Ferrous Sulfate (Feosol) tab 325 mg 325 mg Oral Daily Marilynn James CRNP Fluticasone (Flovent HFA) 220 MCG/ACT inhaler 2 Puff 2 Puff Inhalation Resp Q12H BassettCas Bassett, [facility] levothyroxine (Levoxyl) tab 100 mcg 100 mcg Oral Daily 0630 Marilynn Alvarado CRNP LORAzepam (Ativan) tab 0.5 mg 0.5 mg Oral Q12H PRN Marilynn Alvarado CRNP montelukast (Singulair) tab 10 mg 10 mg Oral Daily Marilynn James CRNP ondansetron (Zofran) inj 4 mg 4 mg IV Push Q6H PRN Marilynn Alvarado CRNP oxybutynin (Ditropan) tab 5 mg 5 mg Oral HS Marilynn Alvarado CRNP Allergies Review of patient's allergies indicates: Allergen Reactions Bactrim [Sulfamethoxazole-Trimethoprim] Nausea/vomiting Family History No family history on file. Social Hisotry Social History Socioeconomic History Marital status: Spouse name: Not on file Number of children: Not on file Years of education: Not on file Highest education level: Not on file Occupational History Not on file Tobacco Use Smoking status: Never Smokeless tobacco: Never Vaping Use Vaping status: Never Used Substance and Sexual Activity Alcohol use: Never Drug use: Never Sexual activity: Not on file Other Topics Concern Not on file Social History Narrative Not on file Social Determinants of Health Financial Resource Strain: Not on file Food Insecurity: Not on file Transportation Needs: Not on file Physical Activity: Not on file Stress: Not on file Social Connections: Not on file Intimate Partner Violence: Not on file Housing Stability: Not on file PHYSICAL EXAM BP: 107 mmHg/61 mmHg (11/21/23710) Pulse: 74 (11/21/2324) Temp: 36.61 C (11/21/23710) Temp Summary: Temp Min: 36.4 C (97.5 F) Max: 36.6 C (97.9 F) SpO2: 97 % (11/21/23 0724) O2 flow rate: 6 L/MIN (11/15/23 1615) Supplemental O2 Delivery: Room Air, None (11/21/23 0759) GENERAL: Awake, alert, in no acute distress. EYES: PERRL, conjunctivae anicteric. ENT: Mucous membranes moist, oropharynx clear. NECK: Supple, no JVD. LYMPH: No cervical or supraclavicular lymphadenopathy. LUNGS: Clear to auscultation bilaterally, no respiratory distress. CARDIAC: Regular rate and rhythm, normal S1/S2, no murmurs, rubs, or gallops. ABDOMEN: Soft, non-tender, non-distended, bowel sounds present. EXT/MSK: No clubbing, cyanosis, 1+ edema. SKIN: No rash, no jaundice. NEURO: Oriented x3, no tremor, no asterixis. Intake/Output Summary (Last 24 hours) at 11/21/2023 1230 Last data filed at 11/21/2023 0852 Gross per 24 hour Intake 120 ml Output -- Net 120 ml LABS/STUDIES: Lab Results Component Value Date/Time BUN - [facility] 36 (H) 11/21/2023 03:48 AM BUN - [facility] 32 (H) 11/20/2023 06:55 AM BUN - [facility] 29 (H) 11/19/2023 04:12 AM BUN - [facility] 31 (H) 11/18/2023 04:44 AM BUN - [facility] 29 (H) 11/17/2023 05:40 AM BUN - [facility] 15 07/15/2020 01:27 AM BUN - [facility] 12 07/14/2020 04:06 AM BUN - [facility] 15 07/13/2020 07:55 PM BUN - [facility] 17 07/13/2020 11:30 AM BUN - [facility] 20 07/10/2020 12:12 PM Lab Results Component Value Date/Time CREATININE - [facility] 1.4 (H) 11/21/2023 03:48 AM CREATININE - [facility] 1.3 (H) 11/20/2023 06:55 AM CREATININE - [facility] 1.0 11/19/2023 04:12 AM CREATININE - [facility] 0.9 11/18/2023 04:44 AM CREATININE - [facility] 0.9 11/17/2023 05:40 AM CREATININE - [facility] 0.7 07/15/2020 01:27 AM CREATININE - [facility] 0.7 07/14/2020 04:06 AM CREATININE - [facility] 0.7 07/13/2020 07:55 PM CREATININE - [facility] 0.8 07/13/2020 11:30 AM CREATININE - [facility] 0.8 07/10/2020 12:12 PM CREATININE ISTAT 0.9 05/10/2020 02:05 PM No components found for: "E GLOM FILT RATE" Lab Results Component Value Date/Time POTASSIUM - [facility] 4.5 11/21/2023 03:48 AM POTASSIUM - [facility] 4.6 11/20/2023 06:55 AM POTASSIUM - [facility] 4.8 11/19/2023 04:12 AM POTASSIUM - [facility] 3.9 07/15/2020 01:27 AM POTASSIUM - [facility] 3.9 07/14/2020 04:06 AM POTASSIUM - [facility] 3.8 07/13/2020 07:55 PM Lab Results Component Value Date/Time HGB 6.9 (L) 11/21/2023 03:49 AM HGB 7.9 (L) 11/20/2023 06:55 AM HGB 7.1 (L) 11/19/2023 04:12 AM HGB 7.4 (L) 11/18/2023 04:44 AM HGB 8.2 (L) 11/16/2023 04:36 AM HGB 11.7 (L) 07/15/2020 01:27 AM HGB 11.5 (L) 07/14/2020 04:06 AM HGB 11.2 (L) 07/13/2020 07:55 PM HGB 12.3 07/13/2020 11:30 AM HGB 12.9 07/10/2020 12:12 PM No results found for: "MICROALB" No components found for: "PROTCREATRAT" No results found for: "PTH" Lab Results Component Value Date/Time PHOSPHORUS - [facility] 3.1 11/21/2023 03:48 AM ASSESSMENT/PLAN: This is 83-year-old female with history of hypertension, chronic pancreatitis, anxiety, aortic valve replacement on Eliquis, CVA twice in 2002, Sjogren's, left breast cancer and normal renal functionat baseline who was admitted on 11/13/2023 as a transfer from [facility] with the acute on chronic pancreatitis. She is being evaluated for hyponatremia and CHRIS. Plan: 1. 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 Serum osmolality is 277. Urine osmolality 343 and urine sodium of 54. -will give urea 15 g twice daily -fluid restriction of 1.5 L daily. -daily BMP. 2. Acute kidney injury: Etiology is likely ischemic ATN in setting of pancreatitis. Her blood pressure is low. -reduce Coreg to 12.5 mg twice daily starting tomorrow -avoid nephrotoxins such as contrast. -blood transfusion Irene Sinclair MD This note was generated with the help of voice recognition software. Please excuse for errors. * Arlyn Kincaid, OTR/L - 11/14/2023 3:47 PM EDTAssociated Order(s): ADULT OCCUPATIONAL THERAPY CONSULT IP GENERAL EVALUATION - Occupational Therapy [address] [id number] Name: Ally Luna Location: [facility] 5A-5109/W Date: 11/14/2023 Time: 3:47 PM Ally Luna is a 83 year old female. As per HPI: "HPI: Ally Luna, is an 83-year-old female w/PMHx chronic pancreatitis, anxiety, paresthesias,GERD, hypertension, dysphagia, fatigue, atrial tachycardia, artificial valve (on Eliquis), pacemaker, TIA, CVA x 2 2022, Sjogren's, left breast cancer, and anemia who presents today as a transfer from [facility] today for acute pancreatitis with pseudocyst requiring an ERCP. Patient originally went to [facility] because she could not get into the Gastroenterology cleared for 4 months. Patient lives with her and son. Patient reported she has not been able to tolerate food and has for several days and has noted weight loss. Patient received PPN while at [facility] due to unable to tolerate clear liquids. Patient was taking Eliquis for her heart valve but that was discontinued at [facility] and Plavix is on hold as of 11/12/23.. No previous history of a DVT or PE. Patient currently has some tenderness in her upper abdomen area. Denies fevers, headaches, chest pain, or diarrhea. Per chart review, patient was recently treated for acute pancreatitis in [facility] in September of 2023. Per chart review, patient has lost 60 lbs of weight loss over the past 6months per family Patient was also treated for UTI proteus, isolated pansensitive and was treated with Rocephin IV and ordered a veronica catheter for urinary incontinence. GI service recommended transferred to tertiary care center for EUS procedure and possible ERCP. Hospital medicine was consulted on and will admit patient medical management and treatment." Patient Status: Inpatient Insurance: Payor: MEDICARE Plan: MEDICARE A AND B Product Type: *No Product type* Payor: [employer] Plan: [employer] Product Type: *No Product type* Patient Seen: at bedside, nursing cleared patient for therapy Patient Identified By: Name, ID Band and Date Diagnosis: pseudocyst of pancreas, ADL deficits, weakness (11/14/23 154) Status of treatment: OOB evaluation completed (11/14/23 154) Orders: OT evaluation and treatment (11/14/23 1547) Weight Bearing Status: Weight bearing as tolerated (11/14/23 1547) Precautions: Alarms;Falls;Seizure (11/14/23 1547) Total Treatment Time: 44 (11/14/23 1547) Past Medical History: Past Medical History: Diagnosis Date Aortic stenosis History of left breast cancer HTN (hypertension) Sjogren's disease (HCC) Past Surgical History: Past Surgical History: Procedure Laterality Date COLONOSCOPY, DIAGNOSTIC (RECTUM) 10/12/2017 normal/[facility] MASTECTOMY,RADICAL Left REPLACE AORTIC VALVE, PERCUTANEOUS FEMORAL N/A 07/13/2020 REPLACE AORTIC VALVE, PERCUTANEOUS FEMORAL performed by Cesar Laurent MD at [facility] REPLACE AORTIC VALVE, PERCUTANEOUS FEMORAL 07/13/2020 REPLACE AORTIC VALVE, PERCUTANEOUS FEMORAL performed by Matthew Allan MD at [facility] Social History/Disposition Lives with: Spouse (Son is caregiver and assists as needed, lives nearby) (11/14/231546) Assistance available: Yes (11/14/231546) Dwelling type: Multi-story home (11/14/231546) Entry steps: Other - Describe (11/14/231546) Inside steps: Other - Describe (enters garage, stair lift into home, 1st floor setup) (11/14/231546) Bedroom location: 1st floor (11/14/231546) Bath location: 1st floor full bath (tub/shower combot with extended shower seat, grab bars) (11/14/231546) Prior Level of Function Reported by: Patient (11/14/231546) Ambulation: (Rolling walker in living area; 2 canes in bathroom/bedroom area) (11/14/231546) Ambulatory Device: Rolling walker (11/14/231546) Grooming: Assistance (11/14/231546) Bathing: Assistance (11/14/231546) Dressing: Assistance (11/14/231546) Feeding: Independent (11/14/231546) Toileting: Assistance (11/14/231546) Meal Prep: Dependent (11/14/231546) Homemaking: Dependent (11/14/231546) Shopping: Dependent (11/14/231546) Medication Management: Dependent (11/14/231546) Money Management: Assistance (11/14/231546) Occupation/Leisure Skills: 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 Pt takes increased time to answer allquestions and make statements due to hx CVA with expressive aphasia. Pain: No complaints of pain Observations Consciousness: Alert (11/14/231546) Orientation: Oriented times 4 (11/14/231546) Cognitive Limitations: Processing (11/14/231546) Psychosocial: Patient can communicate basic needs (11/14/231546) Sitting posture: Kyphotic;Forward head;Rounded shoulders (11/14/231546) Standing posture: Kyphotic;Forward head;Rounded shoulders (11/14/231546) Safety awareness: The Patient does not demonstrate carryover of insight during functional tasks.;Needs cueing supervision. (11/14/231546) Other Findings Endurance: Functional activity;Fair (11/14/231546) Coordination: Impaired (11/14/231546) Edema: No edema noted (11/14/231546) Current Functional Status: Bilateral Upper Extremity Hand Dominance: Right (11/14/231546) Range of Motion: WFL (11/14/231546) Strength Assessment: Deficits noted (11/14/231546) LUE: 3+/5 (11/14/231546) RUE: 3+/5 (11/14/231546) Self Care Able to provide self care: No (11/14/231546) Feeding: Supervision (Please comment) (11/14/231546) Grooming: Minimal Assistance (11/14/231546) Toileting: Moderate Assistance (11/14/231546) Dressing Upper Body: Minimal Assistance (11/14/231546) Lower Body: Moderate Assistance (11/14/231546) Bathing Upper Body: Minimal Assistance (11/14/231546) Lower Body: Moderate Assistance (11/14/231546) Functional Ambulation Assistive Device: Rolling walker (11/14/231546) Distance in feet:: 25 (11/14/231546) Level of Assistance: Minimal Assistance (11/14/231546) Bed Mobility Supine-Sit: Moderate Assistance (11/14/231546) Sit-Supine: Moderate Assistance (11/14/231546) OT Transfers Sit-Stand: Minimal Assistance (11/14/231546) Stand-Sit: Minimal Assistance (11/14/231546) Toilet: Minimal Assistance (11/14/231546) Balance Sit (Static): Good (11/14/231546) Sit (Dynamic): Fair (11/14/231546) Stand (Static): Fair (11/14/231546) Stand (Dynamic): Fair (11/14/231546) Alarm Status Patient positioned in: Bed (11/14/231546) With: Bed alarm intact and functioning and call rebollar in reach (11/14/231546) Patient and Family Goals: to get well and to return home Patient Education Education Topic: Role of OT;Plan of care goals (11/14/231546) Review of Precautions: Safety;Fall (11/14/231546) Method of Education: Verbalized to patient (11/14/231546) Education Provided to: Patient (11/14/231546) Response to Education: Needs further education (11/14/231546) Barriers to learning: Speaking (11/14/231546) Preferred learning method: Combination (11/14/231546) Treatment Provided: Self Mcc Management Trainin minutes Therapeutic Activity: 11 minutes Evaluation Moderate Complexity 15 minutes - 57013: Patient was cooperative and pleasant during treatment session. Moderate complexity evaluation performed and 3-5 activity limitations were identified, including ADL deficit, bed mobility deficit, decreased strength, decreased endurance, and impairedbalance. Minimal or moderate modification of the functional task was necessary to complete the evaluation. Deficits Requiring O.T. Treatment: Deficits requiring O.T. treatment needs: ADL/self-care;Balance;Safety;Upper extremity strength;Weakness (11/14/231546) Goals: Bathing: Upper: supervision. Lower: supervision Dressing: Upper: supervision. Lower: supervision. Bed Mobility with: Modified [place] supine to/from sit. Transfers with: Sit to Stand: modified independent (with device or slow) Bed to Chair/Wheelchair: modified independent (with device or slow). Demonstrates Grooming at modified independent (100% with device and additional time). Demonstrates toileting at modified independent (100% with device and additional time) Goal Time Frame: Within 10 treatment sessions. Assessment: Pt presents to OT assessment, supine in bed, agreeable and pleasant. Pt has history of CVA with expressive aphasia noted, slow to respond, agitated easily with answering questions. Pt demonstrates BUE AROM WFL; MMT at 3+5 BUEs. Pt demonstrates deficits in ADLs, transfers, bed mobility, endurance, safety awareness, and standing balance. Pt completed supine to sit mod A, sit to stand with min A and mod verbal cues to push from surface as pt was continually pulling on Rolling Walker to stand. Pt ambulates to/from bathroom using Rolling Walker with min A, transfers to toilet with min A, clothing mgmt and diego-care hygiene with mod A.Pt stands for hand washing at sink with min A, min verbal cues for safety. Pt return to bed with min A, sit to supine with mod A to bring BLEs into bed and reposition. Pt demonstrates decreased safety awareness, mod verbal cues for safety use of Rolling Walker with all tasks. Skilled OT services warranted here at [facility] to address deficits in ADLs, balance, functional mobility, transfers. Pt left with call rebollar in reach, bed alarm activated. Pt reports not pain with session. RN notifiedof pt request for son to be called to bring in extra pull up briefs. Pt is very anxious throughout ADL and transfers, needs increased time to complete tasks, simple 1 step commands, and increased time to respond verbally. Pt is eager to return to home. OT will follow and treat at the acute care level to maximize functional independence. OT [facility]: 15 Would consider post-acute care services which may include home health, custodial, outpatient therapy, or inpatient rehab. The level of care will be determined in collaboration with the patient,family/caregiver, and care team members. Treatment Plan: Safety, Bed mobility training, Transfer training, Upper extremity strengthening, Balance activities: static/dynamic standing, and ADL training Anticipated Frequency (on eval): 1 to 3 times per week (11/14/231546) AM-PAC Help From Another Person Eating Meals: A little (11/14/231546) Help From Another Person Taking Care of Personal Grooming: A little (11/14/231546) Help From Another Person To Put On/Take Off Upper Body Clothing: A little (11/14/231546) Help From Another Person To Put On/Take Off Lower Body Clothing: A lot (11/14/231546) Help From Another Person Toileting: A lot (11/14/231546) Help From Another Person Bathing: A lot (05/29/24 1547) OT AM-PAC Score: 15 (11/14/23 154) OT AM-PAC t-Scale Score: 34.69 (11/14/23 154) HLM (Highest Level of Mobility) Goal: Level 4 move to chair/commode (11/14/23 0900) * April Martinez, PT - 11/14/2023 3:18 PM EDTAssociated Order(s): ADULT PHYSICAL THERAPY CONSULT IP GENERAL EVALUATION - Physical Therapy [facility]-[address] [address] Name: Ally Luna Location: [facility] 5A-5109/W Date: 11/14/2023 Time: 3:18 PM Ally Luna is a/an 83 year old female. Patient Status: Inpatient Insurance: Payor: MEDICARE Plan: MEDICARE A AND B Product Type: *No Product type* Payor: [employer] Plan: [employer] Product Type: *No Product type* Patient Seen: at bedside Patient Identified By: Name, ID Band and Date Diagnosis: pancreatic pseudocyst, gait dysfunction (11/14/231517) Status of treatment: OOB evaluation completed (11/14/231517) Orders: PT evaluation and treatment (11/14/231517) Weight Bearing Status: Weight bearing as tolerated (11/14/231517) Precautions: Falls;Safety (11/14/231517) Total Treatment Time--free text: 28 minutes (11/14/231517) Past Medical History: Past Medical History: Diagnosis Date Aortic stenosis History of left breast cancer HTN (hypertension) Sjogren's disease (HCC) Past Surgical History: Past Surgical History: Procedure Laterality Date COLONOSCOPY, DIAGNOSTIC (RECTUM) 10/12/2017 [place]/[facility] MASTECTOMY,RADICAL Left REPLACE AORTIC VALVE, PERCUTANEOUS FEMORAL N/A 07/13/2020 REPLACE AORTIC VALVE, PERCUTANEOUS FEMORAL performed by Cesar Laurent MD at [facility] REPLACE AORTIC VALVE, PERCUTANEOUS FEMORAL 07/13/2020 REPLACE AORTIC VALVE, PERCUTANEOUS FEMORAL performed by Matthew Allan MD at [facility] Subjective: Pt agreeable to PT evaluation and treatment Social History/Disposition Lives with: Spouse (Son is caregiver and assists as needed, lives nearby) (11/14/231546) Assistance available: Yes (11/14/231546) Dwelling type: Multi-story home (11/14/231546) Entry steps: Other - Describe (11/14/231546) Inside steps: Other - Describe (enters garage, stair lift into home, 1st floor setup) (11/14/231546) Bedroom location: 1st floor (11/14/231546) Bath location: 1st floor full bath (tub/shower combot with extended shower seat, grab bars) (11/14/231546) Prior Level of Function Reported by: Patient (11/14/231517) Ambulation: Ambulatory with device (11/14/231517) Ambulatory Device: Rolling walker (and 2 canes in bathroom and bedroom where walker does not fit) (11/14/231517) Observations Consciousness: Alert (11/14/231517) Orientation: (difficult to assess second to aphasia s/p CVA, no confusion evident during session) (11/14/231517) Psychosocial: Patient can communicate basic needs (11/14/231517) Sitting Posture: Forward head;Rounded shoulders (11/14/231517) Standing Posture: Forward head;Rounded shoulders (11/14/231517) Pain: Patient has complaints of pain. Pain located abdomen. 10/25 Staff Notified Strength Assessment Strength Assessment: (BLE strength grossly 4/5) (11/14/231517) P.T. Bed Mobility Supine-Sit: Moderate Assistance (11/14/231517) Sit-Supine: Moderate Assistance (11/14/231517) Transfers Sit-Stand: Moderate Assistance (mod assist from bed, min assist from chair) (11/14/231517) Stand-Sit: Minimal Assistance (11/14/231517) Ambulation: Distance ambulated (feet): 60 ft Assistive Device: Rolling walker Assist: Minimal Assistance to contact guard Balance Sit (Static): Good (11/14/231517) Sit (Dynamic): Good (11/14/231517) Stand (Static): Fair (11/14/231517) Stand (Dynamic): Fair (11/14/231517) Patient and or Family Goal(s): to get well Patient Education Review of Precautions: Safety;Fall (11/14/231517) Safety Awareness: Patient verbalizes insight of current deficits;Patient demonstrates carryover of insight during functional tasks (11/14/231517) Preferred learning method: Combination (11/14/231517) Barriers to learning: Medical Status;Speaking (11/14/231517) Topic of Education: Safety with mobility and Fall prevention Method of Education: Verbal discussion and explanation provided to patient: verbalized understanding and or agreement of this information and demonstrated the exercise and or task Treatment Provided: Gait Training 13 minutes: gait training with rolling walker Evaluation Moderate Complexity 15 minutes - [id number]: Patient was cooperative, pleasant, and alert during treatment session. Moderate complexity evaluation performed and 1-2 personal factors or comorbidities were identified that will impact plan of care, including history of CVA and evolving presentation. Patient presents with limitations in strength, bed mobility, transfers, gait, and balance, which will impact plan of care. These limitations will be addressed by the goals set for this patient. Alarm Status Patient positioned in: Bed (11/14/231517) With: Bed alarm intact and functioning and call rebollar in reach (11/14/231517) Goals: Demonstrate Bed Mobility with: Supine to Sit: modified independent (with device or slow) Sit to supine: modified independent (with device or slow) Demonstrate Transfers with: Sit to stand: modified independent (with device or slow) Stand to sit: modified independent (with device or slow) Demonstrate Ambulation: assistive device: rolling walker distance in feet: 100 ft+ level of assistance on level surface: modified independent (with device or slow) Time Frame: 10 sessions Assessment: Ally Luna required moderate assist for bed mobility, min to moderate assist for transfers, and min to contact guard assist to ambulate 60 ft with rolling walker. [facility] Mobility score of 14. Will continue to follow while at [facility]. Would consider post-acute care services which may include home health, custodial, outpatient therapy, or inpatient rehab. The level of care will bedetermined in collaboration with the patient, family/caregiver, and care team members. Deficits requiring P.T. treatment needs: Mobility;Balance;Weakness (11/14/23 1518) Equipment Needs: Treatment Plan: Bed mobility training, Transfer training, Gait training, ROM exercises, Strengthening exercises, Balance activities, and Educate on safety with fall prevention. Anticipated Frequency (on eval): 3 to 5 times per week (11/14/23 1518) AM PAC Score with Stairs: 14 * Andreina Prado, Party Demonstrator - 11/14/2023 11:21 AM EDTAssociated Order(s): CARE MANAGEMENT CONSULT IP See Ancillary Progress Note * Sylvia Fox RDN - 11/14/2023 9:29 AM EDTAssociated Order(s): NUTRITION SERVICES (DIETITIAN) CONSULT IP; PARENTERAL NUTRITION SUPPORT (ADULT) CONSULT IP CLINICAL NUTRITION CONSULT/PROGRESS NOTE [address] [address] Name: Ally Luna Location: [facility] 5A-5109/W Date: 11/14/2023 Time: 9:29 AM How patient was identified (select 2): date and Name Discussed in interdisciplinary rounds: Windy Luna is a 83 year old female being seen for consult by provider and assess for malnutrition Primary Diagnosis: Acute pancreatitis Other pertinent information: Met with patient at bedside to assess nutritional status. Patient reported that she has no appetite. Patient stated that this has been going on for a while. Patient reports that she is unable to keep down liquids or solids. Patient reports gagging and throwing up when she tries to eat. Patient unsure of her usual body weight but per review, pt reports weight loss overthe last 6 months. Per EHR, patient has had 15% weight loss x 1 year which is not significant. Performed a nutrition focused physical exam today, patient currently meets criteria for moderate malnutrition. Discussed with provider, plan is to start PPN today since it is unknown when patient will be a ble to take in food orally. Recommendations below. NUTRITION ASSESSMENT: Past medical/surgical history and medications reviewed. Food/Nutrition-Related History Diet: NPO Previously followed diet: Clear liquid Food Allergies/Intolerances: NKFA Adult Energy Intake: Less than 75% of estimated energy requirement for greater than 7 days (moderate, acute illness). Oral Nutrition Supplement (ONS): None Pertinent medications/vitamins/minerals/supplements: isolyte-S infusion, ferrous sulfate, pantoprazole Pertinent Biochemical Data: There are no biochemical abnormalities requiring a change in the nutrition plan of care. Nutrition-Focused Physical Findings: Appearance: Ill-appearing Respiratory support: Supplemental O2 Delivery: Room Air, None Nasal/Oral: No issues identified Digestive: Appetite poor Last Bowel Movement: 11/13/23 (11/13/23 1424) Cognition: Awake, alert and Oriented Skin: Intact Enteral access: None Nutrition Focused Physical Exam: NFPE completed on 11/14/23 Subcutaneous Fat Loss: Orbital fat pads: Mild Buccal fat: Mild Tricep: WNL Muscle Loss: Temples: Mild Clavicles: Mild Shoulders: Mild Interosseous: WNL Quadriceps: WNL Calves: WNL Edema Location: Lower extremities;Both (11/14/23918) Edema Assessment: +1 - Description (11/14/23918) Anthropometrics Measurements Height: 165.1 cm ( 5' 5") (07/13/2020 1700) Admission weight: 88.5 kg Weight: 88.5 kg (195 lb) (11/13/23 1442) Body mass index is 32.45 kg/m. Usual Body Weight: unable to obtain [place] weight: 67.9 kg [place] Weight Based on BMI: 24.9 Interpretation of Weight Change Prior to Admission: No recent/significant weight change 15% weight loss x 1 year--non-significant Weight Changes Since Admission: N/A Nutrition Prescription: Energy needs: 22-25 Kcal/kg Kcal/day: 0209-0418 Based on current weight Protein needs: 0.8-1.0 gm/kg Protein: 71-89 Based on current weight Fluid needs: 25 ml/kg Fluid: 2212 ml/day Based on current weight Malnutrition: Malnutrition Present: Yes (11/14/23 100) Adult Malnutrition Classification: Moderate (11/14/231005) Malnutrition Characteristics: Fat loss;Muscle loss;Inadequate energy intake (11/14/23 1006) Malnutrition Care Plan: Patient meets ASPEN/AND criteria for moderate malnutrition. Patient is currently NPO secondary to acute pancreatitis . To follow for initiation of diet and/or implementation of appropriate malnutrition intervention per clinical guidelines. Should diet not be initiated in 3 days, will consider enteral or parenteral nutrition. Dietitian Action: Monitored NPO/clear liquid status;Initiated parenteral nutrition support (11/14/23 1006) NUTRITION DIAGNOSIS: Suboptimal oral intake related to poor appetite/ inability to keep food down as evidenced by patient report Malnutrition moderate related to acute illness or injury as evidenced by patient consuming less than 75% of estimated energy requirements x 7 days, mild fat loss, and mild muscle loss. Goals: Diet advancement or initiation of enteral/parenteral nutrition within 24-48 hours. NUTRITION INTERVENTION/PLAN: Orders: Initiate parenteral nutrition See recommendations below Continue to monitor NPO/clear liquid status Clinical Nutrition Recommendations: Diet: Advance diet when clinically feasible Parenteral Nutrition: PPN 45 gm protein 90 gm dextrose 486 total kcals This provides 25% of estimated caloric needs and 63% of protein needs. NUTRITION MONITORING AND EVALUATION: NPO status/diet advancement and tolerance Parenteral nutrition intake for formula, rate, progress toward goal regimen Lab values warranting change with MNT Weight for trends Plan follow-up: Will follow and adjust nutrition plan of care as medical condition requires. Please contact for change(s) in patient condition requiring earlier intervention. Sylvia Fox MS, RDN Clinical Nutrition [facility] Available via [employer] [phone] * Crystal Garcia PA-C - 11/13/2023 4:13 PM EDTAssociated Order(s): GASTROENTEROLOGY CONSULT IP CONSULT - Gastroenterology [facility] [place] [id number] Name: Ally Luna Location: [facility] 5A-5109/W Date: 11/13/2023 Time: 4:13 PM REQUESTING SERVICE: medicine REASON FOR CONSULT: Transfer form [facility] for recurrent pancreatitis in need of an ERCP HPI: Ally Luna is an 83 year old female with a hx of HTN, Aortic stenosis, artificial heart valve/on chronic anticoagulation with plavix as well as eliquis, s/p pacer placement, CVA with resultant aphasia, Sjogren's, left breast cancer and others, admitted as a transfer from [facility] with pancreatitis and pseudocyst at the tail of the pancreas. Patient has had weakness and vomiting approximately September. Hx 2 strokes - one in April and just in September. Patient had not been able to tolerate solid food or liquids for a few days prior to presentation [facility]. Oral intake sporadic prior to that, with reports of weight loss over the past several months as well - upwards of 60 pounds. Patient reports generalized abdominal pain as well, but mainly just to palpation. Per review of records sent from [facility], she also had recent dark stools with some BRB on wiping. CTAP showed acute pancreatitis, a pancreatic tail pseudocyst measuring 6.5x5cm, small ascites, and enlarged mesenteric and retroperitoneal LNs. Lipase was 124. Plavix is being held - Last dose was given on Sunday per chart sent from [facility] - last dose of eliquis was listed as unknown. Labs here show a normal WBC of 8.07 and stable Hgb of 9.5. PLT 73. INR 1.7. LFTs normal. HISTORY: Past Medical History: Past Medical History: Diagnosis Date Aortic stenosis History of left breast cancer HTN (hypertension) Sjogren's disease (HCC) Past Surgical History: Past Surgical History: Procedure Laterality Date COLONOSCOPY, DIAGNOSTIC (RECTUM) 10/12/2017 normal/[facility] MASTECTOMY,RADICAL Left REPLACE AORTIC VALVE, PERCUTANEOUS FEMORAL N/A 07/13/2020 REPLACE AORTIC VALVE, PERCUTANEOUS FEMORAL performed by Cesar Laurent MD at [facility] REPLACE AORTIC VALVE, PERCUTANEOUS FEMORAL 07/13/2020 REPLACE AORTIC VALVE, PERCUTANEOUS FEMORAL performed by Matthew Allan MD at [facility] Social History: Social History Tobacco Use Smoking status: Never Smokeless tobacco: Never Vaping Use Vaping status: Never Used Substance Use Topics Alcohol use: Never Drug use: Never Family History: No family history on file. Allergies: Bactrim [sulfamethoxazole-trimethoprim] ROS: Constitutional: (-) fever, chills, sweats Eyes: (-) negative, no scleral icterus, pain, blurred vision, or redness ENT: (-) negative: no acute hearing loss, sinus, ear or throat problems Cardiovascular: (+) chest pain - occasional Pulmonary: (+) dyspnea - occasional Abdominal/GI: as per HPI, otherwise negative Musculoskeletal: (-) negative: no joint swelling or tenderness Endocrine: (-) heat intolerance and (-) cold intolerance Skin: (-) negative: no rash or jaundice Neurology: +aphasia Female : (+) dysuria PHYSICAL EXAMINATION: Most Recent Vital Signs: BP: 101 mmHg/66 mmHg (11/13/23 142) Pulse: 70 (11/13/231423) Temp: 36.22 C (11/13/231423) Temp Summary: Temp Min: 36.2 C (97.2 F) Max: 36.2 C (97.2 F) SpO2: 97 % (11/13/231423) O2 flow rate: Supplemental O2 Delivery: Room Air, None (11/13/231423) Vital Signs Last 24 Hours: Systolic BP: Most Recent Systolic BP Av mmHg Min: 101 mmHg Max: 101 mmHg Temperature: Most Recent Temperature Av.22 C Min: 36.22 C Max: 36.22 C Pulse: Pulse Av Min: 70 Max: 70 Respirations: Resp Av Min: 18 Max: 18 SpO2: SpO2 Av % Min: 97 % Max: 97 % Constitutional: no acute distress HEENT: normal: normocephalic, atraumatic Eyes: no scleral icterus, redness, or injection Neck: supple, normal range of motion CV: normal rate, normal rhythm Chest: normal respiratory effort, lungs clear to auscultation with equal chest exertion Abdomen: soft, normal bowel sounds, +mild diffuse tenderness to palpation, minimal abdominal distention Musculoskeletal: (-) no joint effusions or tenderness Extremities: no edema Skin: warm and dry, no rashes Neuro: alert Psych: normal mood and affect, nonsuicidal LABS: Labs reviewed. Recent Results (from the past 24 hour(s)) CBC Collection Time: 11/13/23 3:02 PM Result Value Ref Range WBC 8.07 4.00 - 10.80 K/uL RBC 3.19 3.85 - 5.15 M/uL HGB 9.5 (L) 12.0 - 15.3 g/dL HCT 29.2 (L) 36.0 - 45.2 % MCV 91.5 81.5 - 97.5 fL MCH 29.8 27.0 - 34.0 pg MCHC 32.5 32.0 - 36.0 g/dL RDW 14.5 11.5 - 15.5 % PLT 73 (L) 140 - 400 K/uL MPV 11.2 6.6 - 11.1 fL nRBCs 0 <=0 /100 WBCs COMPREHENSIVE METABOLIC PANEL Collection Time: 11/13/23 3:02 PM Result Value Ref Range BUN 29 (H) 6 - 20 mg/dL Creatinine 0.9 0.5 - 1.0 mg/dL Estimated Glomerular Filtration Rate 63 >=60 mL/min Sodium 134 (L) 135 - 146 mmol/L Potassium 3.9 3.5 - 5.1 mmol/L Chloride 100 98 - 107 mmol/L CO2 23 22 - 32 mmol/L Anion Gap 11 7 - 15 mmol/L Glucose 116 70 - 120 mg/dL Albumin 3.2 (L) 3.8 - 5.0 g/dL AST 24 10 - 35 U/L Alkaline Phosphatase 75 35 - 130 U/L Bilirubin, Total 0.5 <=1.2 mg/dL Calcium 8.2 (L) 8.4 - 10.2 mg/dL Protein 6.0 6.0 - 8.3 g/dL ALT 12 10 - 35 U/L MAGNESIUM Collection Time: 11/13/23 3:02 PM Result Value Ref Range Magnesium 2.0 1.5 - 2.6 mg/dL PHOSPHORUS Collection Time: 11/13/23 3:02 PM Result Value Ref Range Phosphorus 2.5 2.5 - 4.8 mg/dL APTT Collection Time: 11/13/23 3:02 PM Result Value Ref Range aPTT 31 21 - 38 seconds PT INR Collection Time: 11/13/23 3:02 PM Result Value Ref Range Prothrombin Time 20.3 (H) 11.6 - 15.2 seconds INR 1.7 (H) 0.8 - 1.2 IMPRESSION: Ally Luna is a(n) 83 year old female admitted as a transfer with pancreatitis andpancreatic pseudocyst for EUS with possible Axios stent placement. RECOMMENDATIONS/PLAN: Continue to hold anticoagulation. IV fluid hydration. Anti-emetics and pain control as needed. NPO except meds. Supportive care otherwise. Will arrange for an EUS with possible Axios stent placement on . I will discuss the case with my attending, Dr Pagan Associated attestation - Rosa Isela Pagan MD - 11/13/2023 5:16 PM EDT [facility]red [facility] due to concerns for pancreatic pseudocyst. Eliquis held since Sunday. Planning for eus on for potential intervention. Agree with pe and plan as documented. documented in this encounter Nursing Notes * Kim Delicd RN - 11/24/2023 2:59 PM EDT 1510 - Report called to Thelma at [facility]. * Kim Delcid RN - 11/24/2023 2:59 PM EDT 1455 - [facility] being discharged to [facility]. Belongings collected. IV sites removed. Discharge paperwork sent with [facility]. Pt contacted regarding discharge. All needs met. * Diego Modi LPN - 11/22/2023 6:23 PM EDT 1500 pt returned from or; tolerating procedure well. Pt restarted on protonix drip. Pt continues rosina very anxious regarding health. Pt denied n,v,abdominal pain. * Courtney Grimaldo RN - 11/22/2023 3:18 PM EDT IN-HOUSE TRANSFER RECEIVING UNIT - NURSING [address] [address] Name: Ally Luna Location: [facility] 5A5109/W Date: 11/22/2023 Time: 3:18 PM Patient received to room 5109w at 1500 Vital Signs: BP: 116 mmHg/74 mmHg (11/22/23 1500) Pulse: 83 (11/22/23 1500) Resp: 24 (11/22/23 1500) Temp: 36.39 C (11/22/23 1500) Temp Summary: Temp Min: 36 C (96.8 F) Max: 36.7 C (98.1 F) SpO2: 100 % (11/22/23 1500) O2 flow rate: 5 L/MIN (11/22/23 1420) Supplemental O2 Delivery: Room Air, None (11/22/23 1500) Pertinent transfer information upon arrival: s/p EGD; no egd Belongings received with patient: n/a Verbal SBAR report received from: Pamella Lopez RN * Diego Modi LPN - 11/22/2023 3:00 PM EDT Dual Licensed Skin Assessment completed by CINDA Altamirano and ARTUR Modi. The patient is/has a N/A Skin Breakdown (includes non blanchable erythema): No * Pamella Lopez RN - 11/22/2023 2:51 PM EDT Post Anesthesia Care Unit Discharge Note [facility] [id number] Dept. Ally Luna Vital Signs Stable Discharged from PACU as per discharge criteria (see discharge criteria sheet). Time: 1453 Reported to: rn Taken to Inpatient Room 5109 W, accompanied by Responsible adult Phoebe LOO. Transported via: Bed Belongings with Patient: Not Applicable Prescriptions on Chart: N/A Patient meets criteria to be transferred or discharged * Mary Beth Oliveros RN - 11/22/2023 2:02 PM EDT EGD completed in [facility] OR with stent removal. Sedated by [facility]. See anesthesia record for VS and medications given. Pt tolerated procedure well with minimal gagging. Abd soft. Airway patent. Pt to recovery on L side with HOB elevated. Report to recovery nurse. Bedside cleaning done by A Chester LOO. * Wanda Mathew RN - 11/21/2023 9:10 PM EDT Pt was very concerned about procedure in the morning and if she needed another blood transfusion. We discussed procedure and I explained that her HGB has improved after that 1 unit of RBCs and that she did not need another blood transfusion today. Assisted pt with calling her son Wolfgang Luna so she could explain to him the findings and let him know not to come in early tomorrow. No new needs at this time. Pt expressed gratitude. * Diego Modi LPN - 11/21/2023 6:34 PM EDT Pt extremely anxious this shift r/t her current diagnosis and receiving blood transfusion. Pt was made NPO mid meal. Pt received 1 unit prbc without issue. Nurse spent several minutes talking with ptabout her concerns until calmer. Family arrived and at bedside when pt taken for CT scan. * Courtney Grimaldo RN - 11/21/2023 1:41 PM EDT 1340 - Blood bank made this nurse aware that blood is ready. Dual verification performed at patient's bedside with this nurse and Mercedes Priest RN. Patient identifiers also verified at this time. Patient educated on s/s of transfusion reactions and verbalized understanding. VSS. Blood transfusion initiated at this time at 50ml/hr as documented in Flowsheets. BP 104/60 | Pulse 75 | Temp 36.2 C (97.2 F) (Temporal Artery) | Resp 16 | Ht 1.651 m (5' 5") | Wt 95.4 kg (210 lb 4.8 oz) | SpO2 99% | BMI 35.00 kg/m | BSA 2.09 m 1356 - Patient tolerated first 15 minutes of blood transfusion without s/s of tranfusion reaction. Rate increased to 175 ml/hr as documented within AUG. Patient remains resting in bed comfortably; respirations even and unlabored. BP 100/63 | Pulse 83 | Temp 36.3 C (97.3 F) | Resp 16 | Ht 1.651 m (5' 5") | Wt 95.4 kg (210 lb 4.8 oz) | SpO2 98% | BMI 35.00 kg/m | BSA 2.09 m 1711 - Blood transfusion completed at this time. Patient tolerated well without s/s of reaction. Patient's family at bedside and updated on plan of care. BP 127/64 | Pulse 77 | Temp 36.1 C (97 F) | Resp 18 | Ht 1.651 m (5' 5") | Wt 95.4 kg (210 lb 4.8 oz) | SpO2 99% | BMI 35.00 kg/m | BSA 2.09 m * Diego Modi LPN - 11/20/2023 2:07 PM EDT pt ambulated 160 feet with 2 assist. Pt had to take 4 rest breaks due to "My right leg is shorter than the left and sometimes it feels like it doesn't want to do it's job." Pt was educated on how mobility shortened hospital stay and decreased pain; verbalized understanding. Pt was also educated on eating more protein and purpose of nutritional shake. Pt verbalized understanding. Pt did tolerate lunch after diet advanced from full liquid to easy to chew. Pt did complain that her supper was "too dry" and had coughing/gagging episode. Pt was encouraged to alternate bites of food and sips of liquid. Pt was provided menu and pt/family educated on calling dietary as pt does not like chocolate supp lement or pudding. * Be Luis RN - 11/19/2023 10:25 PM EDT Late Entry. Coreg held per eMAR admin instructions & Cozaar held per clinical judgement d/t DBP >60. Pt ASX. BP: 97/48 HR: 74bpm. Secure TT sent to storage management consultant provider with acknowledgement rec'd. * Be Luis RN - 11/19/2023 9:42 PM EDT Pacemaker & heart valve implanted 2020. Medtronic Evolute Pro+ heart valve. [employer]ern[employer] pacemaker model#: [id number] RA lead model#: 2088TC/52 RV lead model#: 2088TC/46 * Karan Dockery SN - 11/16/2023 1:46 PM EDT See the Licensed Professional's note for clinical information and recommendations. The signature ofthe Licensed Professional on this note acknowledges only the presence of the student's note within the patient record. By regulation, students' notes are for training and educational purposes only and play no part in the documentation of care or clinical treatment of patients. 0720: Pt ambulated to and from restroom with 1 assist and rolling walker. Assessment completed. A/Ox2, disoriented to time and place. Pt was reoriented, as to which she did retain. Pt lungs are clear, abdomen is slightly distended, soft and non tender with positive bowel sounds x 4. No bm since pt has been admitted. Pt denies any N/V/D. +2 edema in BLE. Voiding clear yellow urine. No pain at thistime. Pt tolerating PPN at this time. 0920: Pt tolerating PO ice, denies any abdominal discomfort at this time. 1102: Pt having increased output and was educated on the purpose of the diuretic. Pt ambulated in shah with no pain, though refused to sit in chair at this time. 1400:Pt resting comfortably at this time with no complaints. Call rebollar within reach at this time. * Pamella Lopez RN - 11/15/2023 4:36 PM EDT Post Anesthesia Care Unit Discharge Note [facility] [address] [place] [address] Dept. Ally Luna Vital Signs Stable Discharged from PACU as per discharge criteria (see discharge criteria sheet). Time: 1637 Reported to: RN Taken to Inpatient Room 5109W, accompanied by Responsible adult Mk Lopez RN. Transported via: Bed Belongings with Patient: Not Applicable Prescriptions on Chart: N/A Patient meets criteria to be transferred or discharged * Herbert Oviedo RN - 11/15/2023 3:44 PM EDT EGD with axios placement completed in [facility] OR. Sedated by [facility]. See anesthesia record for VS and medications given. Pt tolerated procedure well with minimal gagging. Abd soft. Airway patent. Pt to recovery on L side with HOB elevated. Report to PACU nurse. Bedside cleaning done. * Zo Barnes RN - 11/15/2023 1:01 PM EDT 1255. Patient transferred to [facility] for GI procedure. Report given to Celsa Hopkins RN. Patient asked thisnurse to give family member a call to let them know that she was going to her procedure. Phone callmade to son Wolfgang and let him know that his mom is now in the preop area for her procedure. 1645. Patient returned to 5109 from OR. Report obtained from Pamella Lopez RN. Patient vitals obtained and WNL. Patient denies any pain at time of transfer. * Courtney Grimaldo RN - 11/14/2023 6:50 PM EDT Patient cooperative with care during shift. Patient free from n/v, abdominal pain. Patient with distended abdomen. PPN initiated per AUG. Patient and family educated on POC throughout this nurse's shift. Continuous IVF infusion infusing into PIV without difficult. Patient with expressive aphasia and medicated for anxiety as ordered during this nurse's shift. Patient with call rebollar within reach, resting in bed with family at bedside. Respirations even and unlabored. * Jelena Benites RN - 11/13/2023 3:41 PM EDT Dual Licensed Skin Assessment completed by Abby Barnes RN and Dorene Benites RN. The patient is/has a N/A Skin Breakdown (includes non blanchable erythema): No * Jelena Benites RN - 11/13/2023 3:34 PM EDT 1423 Patient arrived to room [facility]. She was able to ambulate approximately [facility] Patient utilized the bedside commode after arriving and tolerated transfer well. VS obtained: 97.2 F, 70 HR, 18 RR, 101/66 BP, 97% on room air. Patient denies pain, N/V or shortness of breath. Upon assessment, she reports tenderness to left side of abdomen. Her last BM was today and last known meal was at lunch in which she had chicken broth. She was able to recall her name/ and is disoriented to place/ situation/ time. Her past medical history indicates a stroke and she has mild aphasia at baseline. Patient was acclimated to room layout, hourly rounds, call rebollar system and fall precautions. Admission questions completed by (Curly) via telephone. Medication reconciliation not completed at this time. Patient resting comfortably in bed with call rebollar within reach and bed alarm on. documented in this encounter Miscellaneous Notes * Ancillary Progress Note - Celsa Alejandra RN - 11/24/2023 1:40 PM EDT CARE MANAGEMENT - ADULT DISCHARGE NOTE [facility] [address] Name: Ally Luna Location: [facility] 5A-5109/W Date: 11/24/2023 Time: 1:40 PM The following coordination of care and discharge plan has been coordinated with the care team, patient, family and/or caregiver according to the patients needs and preferences. Discharge Discharge Was Caregiver/Family/Facility contacted regarding discharge: Yes (11/24/23 1340) Discharge Transportation: Wheelchair Van (11/24/23 1340) Date of scheduled discharge transportation: 11/24/23 (11/24/23 1340) Final Discharge Plan (Complete only at time of Discharge): IP Rehab (11/24/23 1340) Destination - Admitted Since 11/13/2023 Service Provider Selected Services Address Phone Fax Patient Preferred Last Updated [facility] [address] [place] [phone] -- Celsa Alejandra RN 11/24/2023 1341 Narrative: Patient discharged to [facility] for rehab. Message left on sons. Walters to provide transportation at 3 PM via WC van and facility aware of transport time. * Care Plan - Burt Howell RN - 11/24/2023 5:09 AM EDT Clinical Goal(s): Pt will be free of falls during shift (11/23/232034) Possible barriers to meeting goal(s)/advancing plan of care: admitting diagnosis Stability of the patient: Moderately stable - low risk of patient condition declining or worsening Summary regarding today's goal(s): Met: patient was free of falls during shift Recommendations: continue fall precautions * Care Plan - Kim Delcid RN - 11/23/2023 5:05 PM EDT Clinical Goal(s): Pt will report adequate pain control this shift (11/23/23 0720) Possible barriers to meeting goal(s)/advancing plan of care: admitting dx Stability of the patient: Moderately stable - low risk of patient condition declining or worsening Summary regarding today's goal(s): Met: pt had no c/o pain this shift Recommendations: continue plan of care * Ancillary Progress Note - Marisa Kim PTA - 11/23/2023 3:00 PM EDT PROGRESS NOTE - Physical Therapy [facility] [address] Name: Ally Luna Location: [facility] 5A-5109/W Date: 11/23/2023 Time: 3:56 PM Ally Luna is a/an 83 year old female. Patient Status: Inpatient Insurance: Payor: MEDICARE Plan: MEDICARE A AND B Product Type: *No Product type* Payor: [employer] Plan: [employer] Product Type: *No Product type* Patient Seen: at bedside, nursing cleared patient for therapy Patient Identified By: Name, ID Band and Date Diagnosis: pancreatic pseudocyst, gait dysfunction (11/21/23 0955) Status of treatment: Treatment completed (11/23/23 1500) Orders: PT evaluation and treatment (11/23/23 1500) Weight Bearing Status: Weight bearing as tolerated (11/23/23 1500) Precautions: Falls;Safety (11/23/23 1500) Total Treatment Time--free text: 17 (06/07/24 1500) Subjective: Just walked in shah with nursing Pain: No complaints of pain P.T. Bed Mobility Supine-Sit: Moderate Assistance (11/21/23 0955) Sit-Supine: Moderate Assistance (11/23/23 1500) Transfers Sit-Stand: Minimal Assistance (11/23/23 1500) Stand-Sit: Contact Guard (11/23/231499) W/C-Bed/Mat: Minimal Assistance (11/23/231499) Ambulation: Distance ambulated (feet): 10 Assistive Device: Rolling walker Assist: Contact Guard Balance Sit (Static): Good (11/23/231499) Sit (Dynamic): Good (11/23/231499) Stand (Static): Fair (11/23/231499) Stand (Dynamic): Fair (11/23/231499) Patient and or Family Goal(s): to return home Topic of Education: Safety with mobility, Use of assistive device, and LE strengthening Extremity Exercise Supine: Hip;Knee;Ankle (11/23/231499) Hip : Bilateral LE;Flexion;Adduction;Abduction;1 set of 10 (11/23/231499) Knee : Right;Heel slide;SAQ;1 set of 10 (11/23/231499) Ankle: Bilateral LE;Plantar flexion;Dorsiflexion;1 set of 10 (11/23/231499) Method of Education: Demonstrated the above task to pt: demonstrated the exercise and or task Treatment Provided: Therapeutic Activities 17 minutes: bed mobility training LE strengthening Alarm Status Patient positioned in: Bed (11/23/231499) With: Bed alarm intact and functioning and call rebollar in reach (11/23/231499) Patient Education Review of Precautions: Safety;Fall (11/23/231499) Safety Awareness: Patient verbalizes insight of current deficits (11/23/231499) Preferred learning method: Combination (11/23/231499) Barriers to learning: Medication;Speaking (11/23/231499) Assessment: Pt sitting in restroom after having walked in shah with nursing. CG STS with use of railing. Amb with RW to the bed approx 10 ft. Completed LE strengthening exc sitting at EOB and in supine . Repetitive STS x 5 with CGA. Sit to sidely with Max A for LE's only, able to manage / position upper body with use of bed rail. LE strengtheing exc's and glute sets iin supine. Pt left in bed wtih call light in reach Deficits requiring P.T. treatment needs: Safety;Mobility;Weakness (11/23/23 1500) Plan: Continue with current treatment plan established on evaluation. AM PAC Score with Stairs: 15 * Ancillary Progress Note - Andreina Prado, Party Demonstrator - 11/23/2023 1:03 PM EDT Spoke with Son Wolfgang via phone. He is in agreement with pt going to [facility] when medically ready. He also wanted patient transported via medical. Son also had questions about a possible procedure where dye would be injected. CM passes along to charge nurse and Dr. Steen that son would like to discuss this with . * Pt Handout (on AVS) - Kim Delcid RN - 11/23/2023 12:57 PM EDT Images from the original note were not included. [id number] Stroke: Self-Care Routine tasks may be hard after you?ve had a stroke. But many people can learn ways to manage theirdaily activities. In fact, daily activities may help you to regain muscle strength and bring back function to affected limbs. Bathing and dressing By learning a few new ways of doing things, most people who have had a stroke can bathe and dress themselves. You may want to try the following: Test water temperature with a hand or foot that was not affected by the stroke. Use grab bars, a shower seat, a handheld shower, and a long-handled brush. Dress while sitting, starting with the affected side or limb. Put on shirts that pull out operator the head, and pants or skirts with elastic waistbands. Use zippers with loops attached to them. Visit the hair salon weekly or change to a "wash and wear" hairstyle to stay away from using blow dryers and curling irons. Use an electric shaver instead of a razor to prevent injuries. Review grooming with your occupational therapist. Managing bladder and bowel problems After your stroke, you may not be able to control your bladder and bowels. Nurses will work closelywith you to set up a new routine. You may be taken to the toilet on a schedule. This might be every 2 to 3 hours. Making a bathroom stop before going out may also work well. A time may be set to empty the bowel. This will help train your bladder and bowels to go at specific intervals. You may wear absorbent briefs or use a condom catheter. This is a small bag that fits over the penis. You can use adult diapers if needed. Drink fluids in the daytime and limit them in the evening so you won't need to use the bathroom at night. Last Reviewed Date: 12/16/202119992762-8242 [employer]. All rights reserved. This information is not intended as a substitute for professional medical care. Always follow your healthcare professional's instructions. * Ancillary Progress Note - Andreina Prado Party Demonstrator - 11/23/2023 12:55 PM EDT Spoke with Larisa from [facility]. Let her know patient is to be discharged tomorrow. She will pass along to weekend team. She states they should have a bed available. * Ancillary Progress Note - Ravi Cardenas Chaplain - 11/23/2023 10:38 AM EDT PROGRESS NOTE - Spiritual Care Contact Information [address] [address] Name: Ally Luna Location: [facility] 5A-5109/W Date: 11/23/2023 Time: 1:26 PM Orthodoxy: No Scientologist Pref [66] Scientologist Affiliations: REASON FOR VISIT: rounding REQUEST RECEIVED FROM: rounding VISIT LENGTH: 10 REQUEST FACTORS (Nature of Situation): Initial Visit FOCUS OF CARE: Patient SPIRITUAL ASSESSMENT: Sosa or Belief System: Alevism Most Important Need(s) / Concern(s): Helpless and Suffering Sense of Community and/or Scientologist Affiliation: had some connection to [facility] Yazidi Addresses need(s)/concerns(s) and/or kalen through: Sosa, God/Higher Power SPIRITUAL CARE PROVIDED: Eeg Technician addressed needs/concerns and/or coping through: [place], Facilitating sharing/expression,Listening presence, Prayer, Scripture reading, and Supportive dialogue REFERRAL TO: N/A OUTCOMES: [place], Comfort/Healing Presence, Identifying Patient's Strengths/Source of Hope, TrustSelf/Others/God ANNOTATION: pt talked about "needing to trust God' in the midst of health concerns.I affirmed her sosa and offered words of encouragement and supportive presence. I shared comforting Scripture and prayed with pt. Pt comforted by support. * Care Plan - Burt Howell RN - 11/23/2023 6:12 AM EDT Clinical Goal(s): Pt will be free of falls during shift (11/22/232015) Possible barriers to meeting goal(s)/advancing plan of care: admitting diagnosis Stability of the patient: Moderately stable - low risk of patient condition declining or worsening Summary regarding today's goal(s): Met: patient was free of falls during shift Recommendations: continue fall precautions * Care Plan - Evelyn Freed RN - 11/22/2023 6:09 PM EDT Clinical Goal(s): Pt will tolerate EGD procedure this shift. (11/22/23 0800) Possible barriers to meeting goal(s)/advancing plan of care: clinical diagnosis Stability of the patient: Moderately stable - low risk of patient condition declining or worsening Summary regarding today's goal(s): Met: patient tolerated the EGD procedure this shift. Recommendations: continue plan of care * Ancillary Progress Note - Ray Stinson PTA - 11/22/2023 5:05 PM EDT Attempted to see pt for PT follow-up but declined any tx due to feeling fatigued from her EGD today. Pt asked to be allowed to rest at this time. * Ancillary Progress Note - Andreina Prado, Party Demonstrator - 11/22/2023 3:27 PM EDT CARE MANAGEMENT - ADULT TRANSITION NOTE [facility] [address] Name: Ally Luna Location: [facility] 5A-5109/W Date: 11/22/2023 Time: 3:27 PM Risk Stratification Risk Stratification Psycho Social / Medical Concerns Identified: None Identified (11/14/23 1111) Accessed Notehall to connect patients to social care resources: No (11/14/23 1111) Readmission Risk Score: 24.3 (11/22/23 1201) AM-PAC Score With Stairs : 15 (11/22/23 0752) Caregiver Information Patient Contacts Name Relation Home Work Mobile Wolfgang Luna Adult Child [phone] Curly Luna Spouse [phone] Transition of Care Checklist Transition of Care Checklist (aka Readmission Risk Score) Discharge Disposition: Post-Acute (11/16/231419) Narrative: Pt discussed at IDT rounds. Pt for an EGD today. No d/c planned. CM will continue to follow. Pt accepted to [facility]. CM to check in with Larisa in the am to see if they have a bed available. Anticipated Transportation at Discharge: Family Patient/Family Expectations: to get well and go to [facility] before returning home Transition Planning Transition Planning Transition Plan/Considerations: CM provided contact information and will update plan as needs arise(11/16/231419) Insurance Considerations: N/A (11/16/231419) Referral to Community Agency : N/A (11/16/231419) Post-Acute Care needs identified and Referrals Completed: N/A (11/16/231419) Additional Considerations: Care Management will continue to monitor and assist with discharge planning needs * Progress Notes - Non-Billable - Margaret Shah DO - 11/22/2023 2:12 PM EDT The patient underwent upper endoscopy today for a question of melena and upper gastrointestinal bleeding. The previously placed axial stent was in the appropriate place, there was no evidence of blood in or around the stent. Furthermore there was no evidence of blood within the stomach or duodenum. The patient likely had mucosal oozing from anticoagulation and Antiplatelet use. Recommendations Full liquid diet today then advance to a low residue diet May discontinue proton pump inhibitor Would hold on resumption of antiplatelet and anticoagulation for 1 week Patient for follow-up imaging and stent removal with her regular GI provider Dr. Fernando Please call with any questions or concerns GI to sign off * Diagnostic Clarification - Pankaj Steen MD - 11/22/2023 1:29 PM EDT The patient has been diagnosed with a non-traumatic acute kidney injury. * Ancillary Progress Note - Sylvia Fox RDN - 11/22/2023 9:50 AM EDT CLINICAL NUTRITION CONSULT/PROGRESS NOTE [facility]-[address] [address] Name: Ally Luna Location: [place] [facility]/OR Date: 11/22/2023 Time: 10:00 AM How patient was identified (select 2): date and Name Discussed in interdisciplinary rounds: Windy Luna is a 83 year old female being seen for follow-up Primary Diagnosis: Pseudocyst of pancreas Other pertinent information: Met with patient at bedside to follow up. Patient reports that she is eating okay. Per EHR, patient is consuming 10-100% of her meals. Patient reports that she is taking the liquacel and likes it. Patient currently NPO for EGD. Patient weight increased--likely due to fluid. Patient had no other nutritional questions or concerns at this time. Will continue to monitor for diet advancement. NUTRITION ASSESSMENT: Past medical/surgical history and medications reviewed. Food/Nutrition-Related History Diet: NPO Previously followed diet: Easy to chew diet Food Allergies/Intolerances: NKFA Adult Energy Intake: Less than 75% of estimated energy requirement for greater than 7 days (moderate, acute illness). Percentage of meal intake: 10-100% Oral Nutrition Supplement (ONS): Liquacel (1 oz, 100 calories, 16 grams protein, 20 mg phosphorus, 10 mg potassium) BID Pertinent medications/vitamins/minerals/supplements: pantoprazole, ferrous suflate, liquacel, reglan, senna urea Pertinent Biochemical Data: Latest Reference Range & Units 11/20/23 06:55 11/21/23 03:48 11/22/23 03:53 Sodium 135 - 146 mmol/L 128 (L) 125 (L) 127 (L) (L): Data is abnormally low Hyponatremia---pt receiving urea packets Nutrition-Focused Physical Findings: Appearance: Ill-appearing Respiratory support: Supplemental O2 Delivery: Room Air, None Nasal/Oral: No issues identified Digestive: No issues identified Last Bowel Movement: 11/22/23 (per pt) (11/22/23 075) Cognition: Awake, alert and Oriented Skin: Intact Enteral access: None Nutrition Focused Physical Exam: NFPE completed on 11/22/23 Subcutaneous Fat Loss: Orbital fat pads: Mild Buccal fat: Mild Tricep: WNL Muscle Loss: Temples: Mild Clavicles: Mild Shoulders: Mild Interosseous: WNL Quadriceps: WNL Calves: WNL Edema Location: Lower extremities;Both (11/22/23 0752) Edema Assessment: +3 - Description (tiffany wraps in place) (11/22/23 0752) Anthropometrics Measurements Height: 165.1 cm (5' 5") (11/14/23 1000) Admission weight: 88.5 kg Weight: 95.4 kg (210 lb 4.8 oz) (11/21/23 0546) Body mass index is 35 kg/m. Usual Body Weight: 104.8 kg? (Over 1 year ago) [place] weight: 67.9 kg [place] Weight Based on BMI: 24.9 Interpretation of Weight Change Prior to Admission: No recent weight/weight history available Weight Changes Since Admission: weight gain--likely due to fluid Nutrition Prescription: Energy needs: 22-25 Kcal/kg Kcal/day: 5096-7001 Based on admission weight Protein needs: 0.8-1.0 gm/kg Protein: 71-89 Based on admission weight Fluid needs: 25 ml/kg Fluid: 2212 ml/day Based on admission weight Malnutrition: Malnutrition Present: Yes (11/22/231246) Adult Malnutrition Classification: Moderate (11/22/231246) Malnutrition Characteristics: Fat loss;Muscle loss;Inadequate energy intake (11/22/231246) Malnutrition Care Plan: Patient meets ASPEN/AND criteria for moderate malnutrition. Dietitian Action: Continued oral nutrition supplement (11/22/231246) NUTRITION DIAGNOSIS: Altered GI function related to possible upper GI bleed as evidenced by NPO status, need for EGD. Suboptimal oral intake related to poor appetite/ inability to keep food down as evidenced by patient report. Malnutrition moderate related to acute illness or injury as evidenced by patient consuming less than 75% of estimated energy requirements x 7 days, mild fat loss, and mild muscle loss. Goals: Diet advancement or initiation of enteral/parenteral nutrition within 24-48 hours. Previous diagnosis/Goals: Improvement NUTRITION INTERVENTION/PLAN: Continue to monitor NPO/clear liquid status Clinical Nutrition Recommendations: Diet: Advance diet when clinically feasible NUTRITION MONITORING AND EVALUATION: NPO status/diet advancement and tolerance Nursing documentation flowsheets for percent meal intake Lab values warranting change with MNT Weight for trends Plan follow-up: Will follow and adjust nutrition plan of care as medical condition requires. Please contact for change(s) in patient condition requiring earlier intervention. Sylvia Fox MS, RDN Clinical Nutrition [facility] Available via [employer] Text [phone] * Care Plan - Conchita Cook RN - 11/22/2023 6:09 AM EDT Clinical Goal(s): Pt's hgb will be >7 this shift (11/21/23 6068) Possible barriers to meeting goal(s)/advancing plan of care: Low hgb yesterday requiring blood transfusion Stability of the patient: Moderately stable - low risk of patient condition declining or worsening Summary regarding today's goal(s): Met: Pt's hgb was 9.1 with AM labs Recommendations: Continue to monitor Hgb. For EGD today * Ancillary Progress Note - Andreina Prado, Party Demonstrator - 11/21/2023 1:38 PM EDT CARE MANAGEMENT - ADULT TRANSITION NOTE [facility] [address] Name: Ally Luna Location: [facility] 5A-5109/W Date: 11/21/2023 Time: 1:43 PM Risk Stratification Risk Stratification Psycho Social / Medical Concerns Identified: None Identified (11/14/23 1111) Accessed Notehall to connect patients to social care resources: No (11/14/23 1111) Readmission Risk Score: 23.75 (11/21/23 1200) AM-PAC Score With Stairs : 15 (11/21/23 0955) Caregiver Information Patient Contacts Name Relation Home Work Mobile Wolfgang Luna Adult Child [phone] Curly Luna Spouse [phone] Transition of Care Checklist Transition of Care Checklist (aka Readmission Risk Score) Discharge Disposition: Post-Acute (11/16/231419) Narrative: patient discussed in IDT round. Pt not ready for discharge today. Pt getting blood. D/C anticipated for Sunday. Larisa with [facility] made aware. Anticipated Transportation at Discharge: Medical or Family pending pt mobility status Patient/Family Expectations: to get well and return home. Transition Planning Transition Planning Transition Plan/Considerations: CM provided contact information and will update plan as needs arise(11/16/231419) Insurance Considerations: N/A (11/16/231419) Referral to Community Agency : N/A (11/16/231419) Post-Acute Care needs identified and Referrals Completed: N/A (11/16/231419) Additional Considerations: Care Management will continue to monitor and assist with discharge planning needs * Ancillary Progress Note - Tosha Chahal POLYSOMNOGRAPH TECH - 11/21/2023 9:55 AM EDT PROGRESS NOTE - Physical Therapy [address] [address] Name: Ally Luna Location: [facility] 5A-5109/W Date: 11/21/2023 Time: 9:55 AM Ally Luna is a/an 83 year old female. Patient Status: Inpatient Insurance: Payor: MEDICARE Plan: MEDICARE A AND B Product Type: *No Product type* Payor: [employer] Plan: [employer] Product Type: *No Product type* Patient Seen: at bedside, nursing cleared patient for therapy Patient Identified By: Name, ID Band and Date Diagnosis: pancreatic pseudocyst, gait dysfunction (11/21/23954) Status of treatment: Treatment completed (11/21/23954) Orders: PT evaluation and treatment (11/14/23 9708) Weight Bearing Status: Weight bearing as tolerated (11/21/23954) Precautions: Falls;Safety (11/21/23954) Total Treatment Time--free text: 41 minutes (11/21/23954) Subjective: Patient is agreeable to participate in tx session Pain: No complaints of pain P.T. Bed Mobility Supine-Sit: Moderate Assistance (11/21/23954) Sit-Supine: Moderate Assistance (11/21/23954) Transfers Sit-Stand: Moderate Assistance (11/21/23954) Stand-Sit: Contact Guard (11/21/23954) W/C-Bed/Mat: Moderate Assistance (11/16/23 1350) Ambulation: Distance ambulated (feet): 15 + 15 + 80 ft Assistive Device: Rolling walker Assist: Contact Guard Balance Sit (Static): Good (11/21/23954) Sit (Dynamic): Good (11/21/23954) Stand (Static): Fair (11/21/23954) Stand (Dynamic): Fair (11/21/23954) Patient and or Family Goal(s): to get well Topic of Education: Safety with mobility, Use of assistive device, and Fall prevention Extremity Exercise Supine: Ankle;Hip;Knee (11/20/23 1453) Hip : Bilateral LE;Flexion;Adduction;Abduction;2 sets of 10 (11/20/23 145) Knee : Bilateral LE;Heel slide;2 sets of 10 (11/20/23 1453) Ankle: Bilateral LE;Plantar flexion;Dorsiflexion;3 sets of 10 (11/20/23 1453) Method of Education: Verbal discussion and explanation provided to pt: demonstrated the exercise and or task Treatment Provided: Therapeutic Activities 23 minutes: bed mobility training transfer training toilet transfer training Gait Training 18 minutes: gait training with rolling walker Alarm Status Patient positioned in: Bed (11/21/23954) With: Bed alarm intact and functioning and call rebollar in reach (11/21/23954) Patient Education Review of Precautions: Safety;Fall (11/21/23954) Safety Awareness: Patient verbalizes insight of current deficits;Patient demonstrates carryover of insight during functional tasks;Patient can communicate basic needs (11/16/23 1350) Preferred learning method: Combination (11/14/23 151) Barriers to learning: Medical Status;Speaking (11/14/231517) Assessment: Patient with an AM-PAC score of 15 requires mod assist for bed mobility, varying assistfor STS transfers from CGA to mod, and CGA for ambulation with RW. Gait is slow with increased lateral trunk sway and decreased stride length with several intermittent static standing rest breaks. Patient reports fatigue post session and requests to return to bed at end of session. Overall, patientpresents with strength deficits, poor endurance, and decreased safety awareness all of which make patient unsafe to perform mobility without assistance. Deficits requiring P.T. treatment needs: Mobility;Balance;Weakness (11/14/231517) Plan: Continue with current treatment plan established on evaluation. AM PAC Score with Stairs: 15 * Care Plan - Penny Cardenas RN - 11/21/2023 5:03 AM EDT Clinical Goal(s): Pt will have no falls during this shift (11/20/23 1932) Possible barriers to meeting goal(s)/advancing plan of care: Stress, pain, admitting diagnosis Stability of the patient: Moderately stable - low risk of patient condition declining or worsening Summary regarding today's goal(s): Met: Pt did not have any falls during this shift Recommendations: Continue to implement fall prevention protocol as well as stress reduction strategies. Monitor pain level and provide appropriate interventions when needed. Follow plan of care. * Care Plan - Evelyn Freed RN - 11/20/2023 5:52 PM EDT Clinical Goal(s): patient will remain free from falls throughout this shift. (11/20/23 0900) Possible barriers to meeting goal(s)/advancing plan of care: weakness Stability of the patient: Moderately stable - low risk of patient condition declining or worsening Summary regarding today's goal(s): Met: patient remained free from falls throughout this shift. Recommendations: continue plan of care, maintain fall precautions * Ancillary Progress Note - Tosha Chahal PTA - 11/20/2023 2:53 PM EDT PROGRESS NOTE - Physical Therapy [facility]-[address] [address] Name: Ally Luna Location: [facility] 5A-5109/W Date: 11/20/2023 Time: 2:53 PM Ally Luna is a/an 83 year old female. Patient Status: Inpatient Insurance: Payor: MEDICARE Plan: MEDICARE A AND B Product Type: *No Product type* Payor: [employer] Plan: [employer] Product Type: *No Product type* Patient Seen: at bedside, nursing cleared patient for therapy Patient Identified By: Name, ID Band and Date Diagnosis: pancreatic pseudocyst, gait dysfunction (11/20/23 1013) Status of treatment: Treatment completed (11/20/23 145) Orders: PT evaluation and treatment (11/14/231517) Weight Bearing Status: Weight bearing as tolerated (11/20/23 145) Precautions: Falls;Safety (11/20/231452) Total Treatment Time--free text: 24 minutes (11/20/231452) Subjective: patient agreeable to participate in tx session Pain: No complaints of pain P.T. Bed Mobility Supine-Sit: Moderate Assistance (11/19/23 145) Sit-Supine: Moderate Assistance (11/19/23 145) Transfers Sit-Stand: Moderate Assistance (11/19/23 145) Stand-Sit: Minimal Assistance (11/19/23 145) W/C-Bed/Mat: Moderate Assistance (11/16/23 1350) Ambulation: Patient declines 2/2 ambulating recently with nursing Balance Sit (Static): Good (11/14/231517) Sit (Dynamic): Good (11/14/231517) Stand (Static): Fair (11/14/231517) Stand (Dynamic): Fair (11/14/231517) Extremity Exercise Supine: Ankle;Hip;Knee (11/20/231452) Hip : Bilateral LE;Flexion;Adduction;Abduction;2 sets of 10 (11/20/231452) Knee : Bilateral LE;Heel slide;2 sets of 10 (11/20/231452) Ankle: Bilateral LE;Plantar flexion;Dorsiflexion;3 sets of 10 (11/20/231452) Treatment Provided: Therapeutic Exercises: 24 minutes Alarm Status Patient positioned in: Bed (11/20/231452) With: Bed alarm intact and functioning and call rebollar in reach (11/20/231452) Patient Education Review of Precautions: Safety;Fall (11/19/23 145) Safety Awareness: Patient verbalizes insight of current deficits;Patient demonstrates carryover of insight during functional tasks;Patient can communicate basic needs (11/16/23 1350) Preferred learning method: Combination (11/14/231517) Barriers to learning: Medical Status;Speaking (11/14/231517) Assessment: Patient declines mobility training but is agreeable to participate in BLE exercises. supine BLE exercises completed as mentioned above in flow sheet to increase strength and facilitate improvement with functional mobility. Patient requires mod cues for proper technique, achieving full ROM, and exercise progression. Deficits requiring P.T. treatment needs: Mobility;Balance;Weakness (11/14/23 1518) Plan: Continue with current treatment plan established on evaluation. AM PAC Score with Stairs: 14 * Ancillary Progress Note - Andreina Prado, Party Demonstrator - 11/20/2023 10:49 AM EDT Spoke with patient at bedside regarding discharge pt had no needs at this time. No d/c planned for today. Spoke with Larisa from [facility] let her know patient would not be d/c today. She said to follow up first thing in the am for bed availability. * Care Plan - Be Luis RN - 11/20/2023 5:05 AM EDT Clinical Goal(s): Patient will sleep at least 5hrs during shift. (11/19/23 1900) Possible barriers to meeting goal(s)/advancing plan of care: admitting DX Stability of the patient: Moderately stable - low risk of patient condition declining or worsening Summary regarding today's goal(s): Not Met: Patient slept less than 5hr during this shift. Recommendations: continue lab of care. * Care Plan - Ivonne Colby RN - 11/19/2023 6:26 PM EDT Clinical Goal(s): Pt will be free of falls this shift (11/19/23 0900) Possible barriers to meeting goal(s)/advancing plan of care: hospital environment Stability of the patient: Moderately stable - low risk of patient condition declining or worsening Summary regarding today's goal(s): Met: pt free of falls Recommendations: continue fall precautions * Ancillary Progress Note - Andreina Prado, Party Demonstrator - 11/19/2023 3:03 PM EDT Spoke with Larisa from [facility]. They can accept patient tomorrow after 3:00 pm. * Ancillary Progress Note - Tosha Chahal PTA - 11/19/2023 2:55 PM EDT PROGRESS NOTE - Physical Therapy [facility]-[address] [address] Name: Ally Luna Location: [facility] 5A-5109/W Date: 11/19/2023 Time: 2:55 PM Ally Luna is a/an 83 year old female. Patient Status: Inpatient Insurance: Payor: MEDICARE Plan: MEDICARE A AND B Product Type: *No Product type* Payor: [employer] Plan: [employer] Product Type: *No Product type* Patient Seen: at bedside, nursing cleared patient for therapy Patient Identified By: Name, ID Band and Date Diagnosis: pancreatic pseudocyst, gait dysfunction (11/19/23 145) Status of treatment: Treatment completed (11/19/23 145) Orders: PT evaluation and treatment (11/14/23 1518) Weight Bearing Status: Weight bearing as tolerated (11/19/23 145) Precautions: Falls;Safety (11/19/23 145) Total Treatment Time--free text: 40 minutes (11/19/23 145) Subjective: Patient is agreeable to participate in tx session Pain: No complaints of pain P.T. Bed Mobility Supine-Sit: Moderate Assistance (11/19/23 145) Sit-Supine: Moderate Assistance (11/19/23 145) Transfers Sit-Stand: Moderate Assistance (11/19/23 145) Stand-Sit: Minimal Assistance (11/19/23 145) W/C-Bed/Mat: Moderate Assistance (11/16/23 1350) Ambulation: Distance ambulated (feet): 15 + 15 + 90 ft Assistive Device: Rolling walker Assist: Contact Guard Balance Sit (Static): Good (11/14/231517) Sit (Dynamic): Good (11/14/231517) Stand (Static): Fair (11/14/231517) Stand (Dynamic): Fair (11/14/231517) Patient and or Family Goal(s): to get well Topic of Education: Safety with mobility and Goals/plan of care Method of Education: Verbal discussion and explanation provided to pt: verbalized understanding andor agreement of this information Treatment Provided: Therapeutic Activities 23 minutes: bed mobility training transfer training toilet transfer training Gait Training 17 minutes: gait training with rolling walker Alarm Status Patient positioned in: Bed (11/19/23 145) With: Bed alarm intact and functioning and call rebollar in reach (11/19/231454) Patient Education Review of Precautions: Safety;Fall (11/19/231454) Safety Awareness: Patient verbalizes insight of current deficits;Patient demonstrates carryover of insight during functional tasks;Patient can communicate basic needs (11/16/23 1350) Preferred learning method: Combination (11/14/231517) Barriers to learning: Medical Status;Speaking (11/14/231517) Assessment: patient with an AM-PAC score of 14 requires mod assist for bed mobility, mod assist forSTS transfers, and CGA for ambulation. Patient requires verbal cueing throughout all mobility for proper technique to increase safety. Patient overall is unsafe to perform mobility without assistance. Deficits requiring P.T. treatment needs: Mobility;Balance;Weakness (11/14/231517) Plan: Continue with current treatment plan established on evaluation. AM PAC Score with Stairs: 14 * Pt Handout (on AVS) - Bulmaro Whitt RPh - 11/19/2023 10:09 AM EDT [id number] Apixaban Oral Tablet Brands: Eliquis Uses This medicine is used for the following purposes: blood disorder prevent blood clots treatment of blood clots blood clot Instructions This medicine may be taken with or without food. This medicine will work best if you take it at about the same time every day. Store at room temperature away from heat, light, and moisture. Do not keep in the bathroom. It is important that you keep taking each dose of this medicine on time even if you are feeling well. If you forget to take a dose on time, take it as soon as you remember. If it is almost time for thenext dose, do not take the missed dose. Return to your normal schedule. Do not take 2 doses at one time. Drug interactions can change how medicines work or increase risk for side effects. Tell your healthcare providers about all medicines taken. Include prescription and snow-ieh-tiujhbg medicines, vitamins, and herbal medicines. Speak with your doctor or pharmacist before starting or stopping any medicine. Talk to your doctor before taking other medicines, including aspirins and ibuprofen containing products. Speak to your doctor about which medicines are safe to use while you are on this medicine. It is very important that you follow your doctor's instructions for all blood tests. Cautions This medicine may cause serious bleeding problems in patients taking blood thinner medications. Follow your doctor's instructions carefully to monitor your blood lab tests if you are on blood thinners. Tell your doctor and pharmacist if you ever had an allergic reaction to a medicine. This medicine may cause bleeding from the stomach or bowels. Stop this medicine and call your doctor right away if you have pain in the stomach, red or dark tarry stools, or vomit that looks like coffee grounds. There is an increased risk of bleeding while on this medicine, please tell your doctor or nurse if you notice any excessive bleeding or bruising. Do not use the medication any more than instructed. Please check with your doctor before drinking alcohol while on this medicine. Do not breastfeed while on this medicine. This medicine can hurt a new baby in the womb. If you become while on this medicine, tell your doctor immediately. Your doctor may switch you to a different medicine. Do not take Arcata's wort while on this medicine. Do not share this medicine with anyone who has not been prescribed this medicine. Some patients have serious side effects from this medicine. Ask your pharmacist to show you the information from the Food and Drug Administration (FDA) and discuss it with you. Always refill this medicine before it runs out. Side Effects The following is a list of some common side effects from this medicine. Please speak with your doctor about what you should do if you experience these or other side effects. nosebleeds Call your doctor or get medical help right away if you notice any of these more serious side effects: bleeding or bruising coughing up blood or vomit that looks like coffee grounds fainting numbness or tingling in hands and feet severe or persistent headache sudden leg pain, swelling, warmth or redness loss of movement anywhere on the body shortness of breath bloody or dark, tarry stools symptoms of stroke (such as one-sided weakness, slurred speech, confusion) difficulty swallowing unusual or unexplained tiredness or weakness blood in urine blurring or changes of vision A few people may have an allergic reaction to this medicine. Symptoms can include difficulty breathing, skin rash, itching, swelling, or severe dizziness. If you notice any of these symptoms, seek medical help quickly. Extra Please speak with your doctor, nurse, or pharmacist if you have any questions about this medicine. [email or web address] IMPORTANT NOTE: This document tells you briefly how to take your medicine, but it does not tell youall there is to know about it. Your doctor or pharmacist may give you other documents about your medicine. Please talk to them if you have any questions. Always follow their advice. There is a more complete description of this medicine available in Mauritian. Scan this code on your smartphone or tablet or use the web address below. You can also ask your pharmacist for a printout. If you have any questions, please ask your pharmacist. The display and use of this drug information is subject to Terms of Use. Copyright(c) 2023 [employer]. 0453-8999 [employer]. All rights reserved. This information is not intended as a substitute for professional medical care. Always follow your healthcare professional's instructions. * Ancillary Progress Note - Gillian Montiel COTA - 11/19/2023 9:16 AM EDT PROGRESS NOTE - Occupational Therapy [facility]-[address] [address] Name: Ally Luna Location: [facility] 5A-5109/W Date: 11/19/2023 Time: 0916 AM Ally Luna is a 83 year old female. Patient Status: Inpatient Insurance: Payor: MEDICARE Plan: MEDICARE A AND B Product Type: *No Product type* Payor: [employer] Plan: [employer] Product Type: *No Product type* Patient Seen: at bedside, nursing cleared patient for therapy Patient Identified By: Name, ID Band and Date Diagnosis: pseudocyst of pancreas, ADL deficits, weakness (11/14/231546) Status of treatment: Treatment completed (11/19/23915) Orders: OT evaluation and treatment (11/19/23915) Weight Bearing Status: Weight bearing as tolerated (11/19/23915) Precautions: Alarms;Falls;Safety;Other-Describe (R lift in shoe) (11/19/23915) Total Treatment Time: 54 (11/19/23915) Subjective: "I am exhausted." Pain: No complaints of pain Observations Consciousness: Alert (11/19/23915) Orientation: Person;Situation (11/19/23915) Cognitive Limitations: Processing (pt has hx CVA with expressive aphasia, increased time to respondverbally, garbled speech at times) (11/19/23915) Psychosocial: Patient can communicate basic needs;Patient can converse in a social setting (11/19/23915) Sitting posture: Kyphotic;Forward head;Rounded shoulders;Posterior lean (11/19/23915) Standing posture: Kyphotic;Forward head;Rounded shoulders (11/19/23915) Safety awareness: The Patient does not verbalize insight of current deficits.;The Patient does not demonstrate carryover of insight during functional tasks.;The Patient can communicate basic needs.;Needs cueing supervision. (11/19/23915) Other Findings Endurance: Functional activity;Fair (11/14/231546) Light touch sensation: Intact (11/14/231546) Coordination: Impaired;Intact (11/14/231546) Edema: No edema noted (11/14/231546) Current Functional Status: Activities of Daily Living: Self Care Able to provide self care: No (11/14/231546) Feeding: Supervision (Please comment) (11/14/231546) Grooming: Minimal Assistance (11/19/23915) Toileting: Moderate Assistance (11/19/23915) Dressing Upper Body: Minimal Assistance (per clinical judgement, mod for gown during tx due to IV running) (11/19/23915) Lower Body: Maximal Assistance (11/19/23915) Bathing Upper Body: Supervision (Please comment) (11/19/23915) Lower Body: Dependent (11/19/23915) Functional Ambulation Assistive Device: Rolling walker (11/19/23915) Distance in feet:: 25 (15ft x1, 10ft x1) (11/19/23915) Level of Assistance: Minimal Assistance (to CGA) (11/19/23915) Bed Mobility Supine-Sit: Maximal Assistance (11/19/23915) Sit-Supine: Maximal Assistance (x2) (11/19/23915) OT Transfers Sit-Stand: Moderate Assistance (x2) (11/19/23915) Stand-Sit: Moderate Assistance (11/19/23915) Toilet: Moderate Assistance (x2-1, using grab bars) (11/19/23915) Balance Sit (Static): Good (11/14/231546) Sit (Dynamic): Fair (11/14/231546) Stand (Static): Fair (11/14/231546) Stand (Dynamic): Fair (11/14/231546) Patient Education Education Topic: Role of OT;Plan of care goals (11/14/231546) Review of Precautions: Safety;Fall (11/14/231546) Method of Education: Verbalized to patient (11/14/231546) Education Provided to: Patient (11/14/231546) Response to Education: Needs further education (11/14/231546) Barriers to learning: Speaking (expressive aphasia) (11/14/231546) Preferred learning method: Combination (11/14/231546) Alarm Status Patient positioned in: Bed (11/19/23915) With: Bed alarm intact and functioning and call rebollar in reach (11/19/23915) Treatment Provided: Therapeutic Activity: 54 minutes Deficits requiring O.T. treatment needs: ADL/self-care;Balance;Safety;Upper extremity strength;Weakness (11/14/231546) Assessment: Pt was agreeable to participating in treatment. OT AMPAC remained the same at 15. Pt required max A supine to sit at EOB. Pt required mod A x2 sit to stand with RW. Once standing pt ambulated with RW with min A-CGA. She required mod A to doff depends to knee level and for stand to sit on toilet using grab bar. Pt urinated. While seated on toilet pt completed bedside basin bath. She completed grooming with supervision. She required mod A-supervision for UB bathing/dressing. Pt was dep for doffing socks, washing feet, and donning socks. She was dep for doffing depends the remainder of the way and donning clean ones to knee level. Pt returned to standing and was dep for perianal hyg iene. She required max A to wade depends from knee level. She ambulated and sat at EOB. Pt completed oral hygiene sitting at EOB. Pt required mod A-min A for sitting balance due to posterior lean. Ptrequired max A x2 sit to supine. Pt was left in supine with HOB elevated, call rebollar in reach, bed alarm on, and bedside table to the L. Plan: Continue treatment as directed by the OT consult. Anticipated Frequency (on eval): 1 to 3 times per week (11/14/231546) Equipment Equipment used in Therapy: Hospital bed;Rolling walker (11/19/23915) AM-PAC Help From Another Person Eating Meals: A little (11/19/23915) Help From Another Person Taking Care of Personal Grooming: A little (11/19/23915) Help From Another Person To Put On/Take Off Upper Body Clothing: A little (11/19/23915) Help From Another Person To Put On/Take Off Lower Body Clothing: A lot (11/19/23915) Help From Another Person Toileting: A lot (11/19/23915) Help From Another Person Bathing: A lot (11/19/23915) OT AM-PAC Score: 15 (11/19/23915) OT AM-PAC t-Scale Score: 34.69 (11/19/23915) HLM (Highest Level of Mobility) Goal: Level 5 standing (1 or more minutes) (11/19/23 1017) * Ancillary Progress Note - Sindhu Decker RDN - 11/19/2023 9:10 AM EDT CLINICAL NUTRITION CONSULT/PROGRESS NOTE [facility]-[address] [place] [address] Name: Ally Luna Location: [facility] 5A-5109/W Date: 11/19/2023 Time: 9:10 AM How patient was identified (select 2): date and Name Discussed in interdisciplinary rounds: No Ally Luna is a 83 year old female being seen for parenteral nutrition and follow-up Primary Diagnosis: Pseudocyst of pancreas Other pertinent information: Patient seen this AM, she is on a clear liquid diet and receiving PPN.Patient reports she does not enjoy the clear liquids too much, provided me with some preferences. Discussed pt with attending and PA - awaiting to see if diet can be advanced today, possibly d/c PPN if diet advanced. Added liquacel to assist with protein intakes. NUTRITION ASSESSMENT: Past medical/surgical history and medications reviewed. Food/Nutrition-Related History Diet: Clear Liquid Previously followed diet: NPO Food Allergies/Intolerances: NKFA Adult Energy Intake: Less than 75% of estimated energy requirement for greater than 7 days (moderate, acute illness). Percentage of meal intake: Greater than 75% (of clear liquids) Oral Nutrition Supplement (ONS): None Pertinent medications/vitamins/minerals/supplements: Lasix, aldactone Pertinent Biochemical Data: Labs reviewed. There are no biochemical abnormalities requiring a change in nutrition plan of care at this time. Nutrition-Focused Physical Findings: Appearance: Ill-appearing Respiratory support: Supplemental O2 Delivery: Room Air, None Nasal/Oral: No issues identified Digestive: No issues identified Last Bowel Movement: 11/19/23 (11/19/23 0500) Cognition: Awake, alert Skin: Intact Enteral access: None Nutrition Focused Physical Exam: NFPE completed on 11/14/23 Subcutaneous Fat Loss: Orbital fat pads: Mild Buccal fat: Mild Tricep: WNL Muscle Loss: Temples: Mild Clavicles: Mild Shoulders: Mild Interosseous: WNL Quadriceps: WNL Calves: WNL Edema Location: Lower extremities;Both (11/18/232209) Edema Assessment: +2 - Description (11/18/232209) Anthropometrics Measurements Height: 165.1 cm (5' 5") (11/14/23 1000) Admission weight: 88.5 kg Weight: 95.3 kg (210 lb 1.6 oz) (11/19/23 0712) Body mass index is 34.96 kg/m. Usual Body Weight: 104.8 kg? (Over 1 year ago) [place] weight: 67.9 kg [place] Weight Based on BMI: 24.9 Interpretation of Weight Change Prior to Admission: No recent weight/weight history available Weight Changes Since Admission: weight gain - fluid related? Nutrition Prescription: Energy needs: 22-25 Kcal/kg Kcal/day: 9936-4789 Based on admission weight Protein needs: 0.8-1.0 gm/kg Protein: 71-89 Based on admission weight Fluid needs: 25 ml/kg Fluid: 2212 ml/day Based on admission weight Malnutrition: Malnutrition Present: Yes (11/14/231005) Adult Malnutrition Classification: Moderate (11/14/231005) Malnutrition Characteristics: Fat loss;Muscle loss;Inadequate energy intake (11/14/231005) Malnutrition Care Plan: Patient meets ASPEN/AND criteria for moderate malnutrition. NUTRITION DIAGNOSIS: Altered GI function related to nausea/vomiting as evidenced by NPO status, need for parenteral nutrition. Suboptimal oral intake related to poor appetite/ inability to keep food down as evidenced by patient report. Malnutrition moderate related to acute illness or injury as evidenced by patient consuming less than 75% of estimated energy requirements x 7 days, mild fat loss, and mild muscle loss. Goals: Diet advancement within 24-48 hours as tolerated, or advancement of parenteral nutrition. Previous diagnosis/Goals: No improvement NUTRITION INTERVENTION/PLAN: Orders: Oral nutrition supplement added Liquacel (1 oz, 100 calories, 16 grams protein, 20 mg phosphorus, 10 mg potassium) BID Clinical Nutrition Recommendations: Diet: Advance diet when clinically feasible Parenteral Nutrition: If unable to advance diet recommend increasing PPN to TPN. NUTRITION MONITORING AND EVALUATION: NPO status/diet advancement and tolerance Nursing documentation flowsheets for percent meal intake Tolerance of supplement per patient/nursing report Parenteral nutrition intake for formula, rate, progress toward goal regimen Renal and electrolyte profile, protein profile for possible refeeding syndrome Weight for trends Plan follow-up: Will follow and adjust nutrition plan of care as medical condition requires. Please contact for change(s) in patient condition requiring earlier intervention. Sindhu Decker, , RDN, LDN Clinical Dietitian [facility] Available via [employer] [phone] * Care Plan - Ingrid Alexandra RN - 11/19/2023 6:22 AM EDT Clinical Goal(s): Patient will remain free from falls this shift. (11/18/232209) Possible barriers to meeting goal(s)/advancing plan of care: weakness, immobility Stability of the patient: Moderately stable - low risk of patient condition declining or worsening Summary regarding today's goal(s): Met: Pt will have no fall or injury this shift Recommendations: Continue plan of care * Care Plan - Gillian Leung RN - 11/18/2023 5:01 PM EDT Clinical Goal(s): Pt will ambulate 3x this shift (11/18/23 0722) Possible barriers to meeting goal(s)/advancing plan of care: weakness Stability of the patient: Moderately stable - low risk of patient condition declining or worsening Summary regarding today's goal(s): Met: pt ambulated >3x this shift Recommendations: continue plan of care and encouragement of ambulation * Care Plan - Penny Cardenas RN - 11/18/2023 5:00 AM EDT Clinical Goal(s): Pt will sleep for at least 4 hours during this shift (11/17/231955) Possible barriers to meeting goal(s)/advancing plan of care: Stress, pain, admitting diagnosis, hospital environment Stability of the patient: Moderately stable - low risk of patient condition declining or worsening Summary regarding today's goal(s): Met: Pt slept for at least 4 hours during this shift Recommendations: Continue to implement stress reduction strategies and monitor pain level, providing appropriate interventions when needed. Follow plan of care. * Care Plan - Gillian Leung RN - 11/17/2023 5:09 PM EDT Clinical Goal(s): Pt will remain free from falls this shift (11/17/23 0800) Possible barriers to meeting goal(s)/advancing plan of care: Weakness, unfamiliar environment Stability of the patient: Moderately stable - low risk of patient condition declining or worsening Summary regarding today's goal(s): Met: Pt had no falls this shift Recommendations: continue plan of care and fall precautions * Ancillary Progress Note - Ray Stinson PTA - 11/17/2023 1:55 PM EDT Attempted to see pt for PT follow-up but pt declined 2/2 to fatigue today. Therefore no tx performed on this date. * Care Plan - Ingrid Alexandra RN - 11/17/2023 5:39 AM EDT Clinical Goal(s): Patient will remain free from falls this shift. (11/16/232009) Possible barriers to meeting goal(s)/advancing plan of care: immobility, weakness Stability of the patient: Moderately stable - low risk of patient condition declining or worsening Summary regarding today's goal(s): Met: Pt without fall or injury this shift Recommendations: Continue plan of care * Care Plan - Gillian Leung RN - 11/16/2023 5:21 PM EDT Clinical Goal(s): Pt will have no falls this shift (11/16/23 0800) Possible barriers to meeting goal(s)/advancing plan of care: weakness, unfamiliar environment Stability of the patient: Moderately stable - low risk of patient condition declining or worsening Summary regarding today's goal(s): Met: pt had no falls this shift Recommendations: continue plan of care and fall precautions * Ancillary Progress Note - Gillian Montiel COTA - 11/16/2023 2:29 PM EDT Attempted to see pt at 1429, pt being seen at this time by KEIRA Stinson for follow-up tx. POLYSOMNOGRAPH TECH and pt verbalized no needs at this time. Treatment will be attempted at a later time or date dependent on schedule, pt tolerance, and pt medical status. * Ancillary Progress Note - Sadia Arias RN - 11/16/2023 2:20 PM EDT CARE MANAGEMENT - ADULT TRANSITION NOTE [facility]-[address] [address] Name: Ally Luna Location: [facility] 5A-5109/W Date: 11/16/2023 Time: 2:20 PM Risk Stratification Risk Stratification Psycho Social / Medical Concerns Identified: None Identified (11/14/23 1111) Accessed [employer] to connect patients to social care resources: No (11/14/23 1111) Readmission Risk Score: 20.29 (11/16/23 1200) AM-PAC Score With Stairs : 15 (11/16/23 0800) Caregiver Information Patient Contacts Name Relation Home Work Mobile Wolfgang Luna Adult Child [phone] Curly Luna Spouse [phone] Transition of Care Checklist Transition of Care Checklist (aka Readmission Risk Score) Discharge Disposition: Post-Acute (05/31/24 1420) Narrative: IDT completed, patient remains on PPN and for possible discharge next Sunday or Sunday.Spoke with Annie from [facility] and made her aware of possible discharge date. Anticipated Transportation at Discharge: family Patient/Family Expectations: rehab Transition Planning Transition Planning Transition Plan/Considerations: CM provided contact information and will update plan as needs arise(11/16/231419) Insurance Considerations: N/A (11/16/231419) Referral to Community Agency : N/A (11/16/231419) Post-Acute Care needs identified and Referrals Completed: N/A (11/16/231419) Additional Considerations: none Care Management will continue to monitor and assist with discharge planning needs * Ancillary Progress Note - Ray Stinson PTA - 11/16/2023 1:50 PM EDT PROGRESS NOTE - Physical Therapy [facility]-[address] [address] Name: Ally Luna Location: [facility] 5A-5109/W Date: 11/16/2023 Time: 1349 Ally Luna is a/an 83 year old female. Patient Status: Inpatient Insurance: Payor: MEDICARE Plan: MEDICARE A AND B Product Type: *No Product type* Payor: [employer] HE[employer] Plan: [employer] TRiQ Product Type: *No Product type* Patient Seen: at bedside, nursing cleared patient for therapy Patient Identified By: Name, ID Band and Date Diagnosis: pancreatic pseudocyst, gait dysfunction (11/14/23 1518) Status of treatment: Treatment completed (11/16/23 135) Orders: PT evaluation and treatment (11/14/23 151) Weight Bearing Status: Weight bearing as tolerated (11/16/23 135) Precautions: Safety;Falls (11/16/23 135) Total Treatment Time--free text: 53 mins (11/16/23 135) Subjective: "I have to keep peeing all the time." Pain: No complaints of pain P.T. Bed Mobility Supine-Sit: Moderate Assistance (11/16/23 1350) Sit-Supine: Moderate Assistance (11/16/23 1350) Transfers Sit-Stand: Moderate Assistance (11/16/23 1350) Stand-Sit: Minimal Assistance (11/16/23 1350) W/C-Bed/Mat: Moderate Assistance (11/16/23 1350) Ambulation: Distance ambulated (feet): 25 ft x 2, 150 ft Assistive Device: Rolling walker Assist: Contact Guard Balance Sit (Static): Good (11/14/23 151) Sit (Dynamic): Good (11/14/231517) Stand (Static): Fair (11/14/231517) Stand (Dynamic): Fair (11/14/231517) Patient and or Family Goal(s): to get well and to return home Topic of Education: Safety with mobility, Use of assistive device, and Fall prevention Method of Education: Demonstrated the above task to pt: verbalized understanding and or agreement of this information and demonstrated the exercise and or task Treatment Provided: Therapeutic Activities 30 minutes: bed mobility training transfer training toilet transfer training Gait Training 23 minutes: gait training with rolling walker Alarm Status Patient positioned in: Bed (11/16/23 1350) With: Call rebollar in reach (11/16/23 135) Patient Education Review of Precautions: Safety;Fall (11/16/23 135) Safety Awareness: Patient verbalizes insight of current deficits;Patient demonstrates carryover of insight during functional tasks;Patient can communicate basic needs (11/16/23 135) Preferred learning method: Combination (11/14/231517) Barriers to learning: Medical Status;Speaking (11/14/231517) Assessment: Pt tolerated tx fair with no reported pain or SOB post tx session. Pt did report feeling fatigued post tx session. Pt was given manual assist for OOB and STS. Pt required Mod A for bed mobility and STS from bed and Min A from toilet. Pt used the BR 2x during tx session and then requiredassist with changing depends as well. Pt also ambulated in the hallway with a RW and CGA for safety. Pt was returned to lying supine in bed with HOB elevated to comfort. No needs post tx session. Pt instructed to not get up without assistance. Deficits requiring P.T. treatment needs: Mobility;Balance;Weakness (11/14/231517) Plan: Continue with current treatment plan established on evaluation. AM PAC Score with Stairs: 14 * Care Plan - Rabia Levy RN - 11/16/2023 5:29 AM EDT Clinical Goal(s): pt will be free of falls this shift (11/15/232029) Possible barriers to meeting goal(s)/advancing plan of care: hospital environment Stability of the patient: Moderately stable - low risk of patient condition declining or worsening Summary regarding today's goal(s): Met: pt did not have a fall this shift Recommendations: continue fall precautions * Care Plan - Zo Barnes RN - 11/15/2023 6:34 PM EDT Clinical Goal(s): Pt will tolerate PPN infusion throughout the shift (11/15/23 09) Possible barriers to meeting goal(s)/advancing plan of care: Diagnosis Stability of the patient: Moderately stable - low risk of patient condition declining or worsening Summary regarding today's goal(s): Met: Patient tolerated PPN infusion this shift Recommendations: Continue plan of care * Ancillary Progress Note - Andreina Prado Party Demonstrator - 11/15/2023 1:52 PM EDT Attempted to call gladis Goss regarding discharge planning and decisions on SNF. No answer CM will try again at a later time. Spoke with gladis Goss via phone. He discussed rehab with the patient and her and they would like ro. Referral made to ro and Larisa made aware. They do not have a back up and would consider HH with PT/OT at discharge if needed. * Care Plan - Ingrid Alexandra RN - 11/15/2023 5:47 AM EDT Clinical Goal(s): Pt will tolerate PPN throughout shift (11/14/23 2100) Possible barriers to meeting goal(s)/advancing plan of care: admitting dx Stability of the patient: Moderately stable - low risk of patient condition declining or worsening Summary regarding today's goal(s): Met: PPN ran throughout shift without complication Recommendations: Continue plan of care * Care Plan - Courtney Grimaldo RN - 11/14/2023 6:49 PM EDT Clinical Goal(s): Patient will be free from n/v or abdominal pain during shift (11/14/23 0900) Possible barriers to meeting goal(s)/advancing plan of care: admitting diagnosis Stability of the patient: Moderately stable - low risk of patient condition declining or worsening Summary regarding today's goal(s): Met: Patient without abdominal pain, n/v Recommendations: continue to medicate per MAR; assess pain/GI s/s as needed * Ancillary Progress Note - Andreina Prado Party Demonstrator - 11/14/2023 12:18 PM EDT [facility] star ratings list left with nurses station for family to filler picker this evening per Son request. * Medical Necessity - Laz Boss RN - 11/14/2023 11:45 AM EDT AdmissionCare Guideline: Pancreatitis - INPT, Inpatient Based on the indications selected for the patient, the bed status of Inpatient was determined to beMET The following indications were selected as present at the time of evaluation of the patient: - Acute pancreatitis, as indicated by 2 or more of the following: - Abdominal pain - Findings on imaging indicative of acute pancreatitis (eg, pancreatic inflammation, pancreatic necrosis, peripancreatic fluid collection) Additional Information: pancreatitis and pancreatic pseudocyst for EUS with possible Axios stent placement, IVF, NPO AdmissionCare documentation entered by: Laz Boss [facility] [employer], 27th edition, Copyright 2022 [facility] All Rights Reserved. [id number] Solely for purpose of utilization review and payment; not a diagnostic tool * Ancillary Progress Note - Andreina Prado, Party Demonstrator - 11/14/2023 11:17 AM EDT CARE MANAGEMENT - ADULT INITIAL SCREENING [facility] [address] Name: Ally Luna Location: [facility] 5A-5109/W Date: 11/14/2023 Time: 11:18 AM Discussed patient with the interdisciplinary care team. This C.O.D. Biller performed a chart review and met with patient at bedside and Son Wolfgang via Phone to complete admission screen and assessed needs for transition planning. The care transitions manager role and services were explained and emotional support was provided. Chief Complaint: No chief complaint on file. Prior Living Arrangements What was your living situation prior to admission/observation?: With Spouse (11/14/23 1111) Living Quarters: House (11/14/23 1111) Number of steps to enter living quarters:: 0 has stair lifts (11/14/23 1111) Do you have serious difficulty walking or climbing stairs? (5 years old or older): Yes (11/13/23 1442) History of falling: No (11/14/23 0900) Prior Level of Functioning Describe the patient's ability prior to admission/observation to perform ADLs: Performs independently (11/14/23 1111) Requires assistance with: Bathing;Dressing (11/13/23 1442) Describe the patient's mobility status prior to admission: Patient ambulates independently (11/14/23 1111) Patient uses assistive device: Yes (11/14/23 1111) If yes, choose:: Walker;Cane (11/14/23 1111) Caregiver Information Patient Contacts Name Relation Home Work Mobile Wolfgang Luna Adult Child [phone] LunaCurly kasper Spouse [phone] Bong Adult Child [phone] Risk Stratification/Psychosocial/Care Gaps Risk Stratification Psycho Social / Medical Concerns Identified: None Identified (11/14/23 1111) Accessed [facility] to connect patients to social care resources: No (11/14/23 1111) Readmission Risk Score: 17.55 (11/14/23 0801) AM-PAC Score With Stairs : 15 (11/14/23 0900) Prior to Admission Services Services Prior to Admission POLYSOMNOGRAPH TECH Services (Services received within the last 30 days with exception, Psych within last two years): Other - Comment (11/14/23 1111) List All Provider/Service Name: OP PT/OT/SP (11/14/231110) Agency contacted: No (11/14/231110) [place] [facility] (PDA) Waiver Program: N/A (11/14/231110) POLYSOMNOGRAPH TECH Transportation (Services received within the last 30 days): Family/Friends Personal Vehicle (11/14/231110) Outpatient C.O.D. Biller: No care [employer] sales and lending team member to display Patient/Family Expectations: to get well and return home Pt and son state that patient lives with in a 2 story home with chair lifts to get inside. Pt resides on the first floor. She is independent with ADL's. She does use a walker inside the home and a cane for smaller spaces. Outside of the home she uses a rollator. Pt currently does PT/OT/SP OP 2x per week. Son would like patient evaluated by PT/OT for rehab needs. [facility] star rating list provided to patient/family. Pt son transports to appointments and family will transport at discharge. For further screening information, please refer to the Care Management flow document. * Communication - Tosha Fontaine PA-C - 11/14/2023 10:41 AM EDT Chart reviewed. Spoke briefly with pt and nurse. Pt reporting some abd discomfort, nausea but otherwise doing well. Abd soft HGB 9.5->8.1 overnight (HGB was 8.3 on 11/11), BUN 26, PLT 54 (appears to have chronic thrombocytopenia), though no reports of n/v, melena hematochezia or hematemesis. LFTs, WBC WNL. Recommendations: - Pt scheduled for EUS tomorrow 11/15/2023 for evaluation of suspected pancreatic pseudocyst - Keep NPO except meds - Daily CBC, BMP - Trend H/H, transfuse PRN - Supportive care with IVF, antiemetics, analgesia PRN - Daily PPI - Hold AC Tosha Fontaine PA-C 11/14/2023 Department of Gastroenterology * Pt Handout (on AVS) - Ashleigh Navarrete RN - 11/14/2023 12:20 AM EDT [id number] Pancreatitis The pancreas is an organ in the belly (abdomen). It secretes hormones and digestive juices (enzymes) into the stomach to aid with digestion and blood sugar levels. Pancreatitis is an inflammation of the pancreas. In many cases, it's caused when the duct that connects the pancreas and gallbladder isblocked by a gallstone. Heavy alcohol use is another major cause. Less common causes can include medicines, trauma, certain medical procedures, viruses, and toxins. Sometimes the cause of pancreatitis can't be found. Genetic testing is sometimes done in those cases, especially if there is a family history of pancreatic disease. Symptoms of pancreatitis include: Severe abdominal pain Nausea and vomiting Severe indigestion Racing heart Fever If the pancreatitis becomes a chronic problem, diarrhea, chronic pain, weight loss, and poor nutrition can result. At first, pancreatitis may be treated in the hospital. It may be diagnosed by history, exam, blood tests, and sometimes imaging studies. While in the hospital, fluids and medicines can be provided. The underlying cause of the problem must also be treated to prevent further problems. If gallstones are the cause, you and your healthcare provider can discuss choices for treating them. This often results in gallbladder surgery. Sometimes another test must be done to clear the drainage ducts of a blocked gallstones. If alcohol is the cause, talk with your healthcare provider about a program to help you stop drinking. Home care Don't drink alcohol. Rest in bed or sit up in a chair until you feel better. Take medicines as prescribed. If you were given an antibiotic for infection, take it until it's gone, even if you feel better. Let your healthcare provider know if you vomit up your medicine. Tips for eating and drinking: Try sipping small amounts of clear liquids often to prevent dehydration. Your provider may advise clear liquids only for 1 or 2 days. This is to rest the pancreas. When you start eating again, start with small amounts. Have small, more frequent meals rather than larger meals. Low-fat meals are best. Fruits, vegetables, and whole grains are good choices. [place] from fried and greasy foods. Follow-up care Follow up with your healthcare provider as advised. When to get medical care Call your healthcare provider right away if any of these occur: Pain that continues or gets worse Repeated vomiting Dizziness, weakness Fever of 100.4 F (38 C) or higher, or as advised by your provider Severe muscle cramps Yellowish coloring of the skin and eyes (jaundice) Call 911 Call 911 if you have any of the following: Vomiting blood or large amounts of blood in stool Seizure Loss of consciousness Last Reviewed Date: 10/16/202119997181-4679 [employer]. All rights reserved. This information is not intended as a substitute for professional medical care. Always follow your healthcare professional's instructions. * Care Plan - Jelena Benites RN - 11/13/2023 5:14 PM EDT Clinical Goal(s): Patient will remain free from falls this shift. (11/13/23 9372) Possible barriers to meeting goal(s)/advancing plan of care: abdominal pain Stability of the patient: Moderately stable - low risk of patient condition declining or worsening Summary regarding today's goal(s): Met: Patient remained free from falls this shift. Recommendations: Assess patient for personal needs and assist as needed. Encourage patient to use call for assistance getting OOB. documented in this encounter Plan of Treatment Upcoming Encounters Date Type Department Care Team (Latest Contact Info) Description 11/29/2023 12:00 PM EDT Imaging Radiology [facility] [address] [place] [address] 12/11/2023 11:02 AM EDT Hospital Encounter OR [facility], Operating Room, [facility] - 4th Floor [address] [address] Baljit Fernando MD [address] [place] [address] 12/11/2023 11:02 AM EDT - 12/11/2023 11:40 AM EDT Surgery OR [facility], Operating Room, [facility] - 4th Floor [address] [address] Baljit Fernando MD [address] [place] [address] ESOPHAGOGASTRODUODENOSCOPY (EGD), FLEXIBLE, TRANSORAL, DIAGNOSTIC Scheduled Orders Name Type Priority Associated Diagnoses Orde r Schedule EGD, FLEXIBLE,W/ENDOSCOPI C US Procedures Routine Once for 1 Occurrences starting 11/15/2023 until 11/15/2023 XR INTRA-OP C-ARM CASE Medical Imaging Routine One Time for 1 Occurrences starting 11/15/2023 until 11/15/2023 EGD, FLEXIBLE, DIAGNOSTIC Procedures Routine One Time for 1 Occurrences starting 11/22/2023 until 11/22/2023 Scheduled Procedures Name Priority Associated Diagnoses Date/Ti me ESOPHAGOGASTRODUODENOSCOPY ( EGD), FLEXIBLE, TRANSORAL, DIAGNOSTIC Pseudocyst of pancreas 12/11/2023 11:02 AM EDT Health Maintenance Due Date Last Done Comments DXA Scan 1940 Depression Screening 1952 Albumin/Creatinine Ratio 1958 DTaP,Tdap,and Td Vaccines (1 - Tdap) 1959 Zoster Vaccines (1 of 2) 1990 Pneumococcal Vaccine: 65+ Years (2 of 2 - PCV) 06/24/2020 06/24/2019 TSH 07/14/2021 07/14/2020, 07/13/2020 COVID-19 Vaccine (4 - season) 2023 05/03/2021, 08/20/2020, 07/23/2020 Influenza Vaccine (FLU shot) (Season Ended) 2024 02/24/2020, 04/02/2018 GFR 11/23/2024 11/24/2023, 0612/2023, 11/22/2023, Additional history exists GARDASIL-HPV IMMUNIZATION SERIES Aged Out No longer eligible based on patient's age to complete this topic Hepatitis B Aged Out No longer eligi ble based on patient's age to complete this topic MENINGOCOCCAL (MENACTRA/MENVEO) Aged Out No longer eligible based on patient's age to complete this topic documented as of this encounter Medical Devices Implanted Type Area Cupola Tapper Helper Device Identifier Shelf Expiration Date Model / Serial / Lot Stent Axios [id number] - [id number] Implanted:Qty: 1 on 11/15/2023 by Baljit Fernando MD at OR [facility] [employer] : ENDOSCOPY [id number] 07/04/2024 [id number] / / [id number] Explanted Type Area Cupola Tapper Helper Device Identifier Shelf Expiration Date Model / Serial / Lot Stent Solus And Intro Set - [id number] Implanted:Qty: 1 on 11/15/2023 by Baljit Fernando MD at OR [facility] Explanted:Qty: 1 on 11/22/2023 by Margaret Shah DO at OR [facility] [employer] : YASEMIN CARBAJAL [id number] 08/13/2026 [id number] / / [id number] documented as of this encounter Procedures Procedure Name Priority Date/Time Associated Diagnosis Comments BASIC METABOLIC PANEL Routine 11/24/2023 4:55 AM EDT PHOSPHORUS Routine 11/24/2023 4:55 AM EDT CBC Routine 11/24/2023 4:55 AM EDT MAGNESIUM Routine 11/24/2023 4:55 AM EDT CBC Routine 11/23/2023 8:26 AM EDT EXTRA LAVENDER TOP Routine 11/23/2023 4: 20 AM EDT EXTRA TUBES Routine 11/23/2023 4:20 AM EDT BASIC METABOLIC PANEL Routine 11/23/2023 4:11 AM EDT PHOSPHORUS Routine 11/23/2023 4:11 AM EDT MAGNESIUM Routine 11/23/2023 4:11 AM EDT UPPER GI ENDOSCOPY 11/22/2023 1: 53 PM EDT EGD, Flexible, Diagnostic 11/22/2023 1:45 PM EDT Melena COMPREHENSIVE METABOLIC PANEL Routine 11/22/2023 3:53 AM EDT PHOSPHORUS Routine 11/22/2023 3:53 AM EDT CBC Routine 11/22/2023 3:53 AM EDT MAGNESIUM Routine 11/22/2023 3:[address] ABD/PELVIS WO IV/ORAL CONTRAST STAT 11/21/2023 6:30 PM EDT Other specified diseases of pancreas Other diseases of stomach and duodenum Other specified conditions associated with female genital organs and menstrual cycle Pseudocyst of pancreas Melena Other ascites HEMOGLOBIN AND HEMATOCRIT PANEL STAT 11/21/2023 5:47 PM EDT TRANSFUSE PACKED RED BLOOD CELLS Routine 11/21/2023 1:40 PM EDT TYPE AND SCREEN Routine 11/21/2023 7:02 AM EDT HC COMPATIBILITY ELECTRONIC CROSSMATCH Routine 11/21/2023 6:25 AM EDT CBC Routine 11/21/2023 3:49 AM EDT BILIRUBIN, DIRECT Routine 11/21/2023 3:4 8 AM EDT COMPREHENSIVE METABOLIC PANEL Routine 11/21/2023 3:48 AM EDT PHOSPHORUS Routine 11/21/2023 3:48 AM EDT TRIGLYCERIDES Routine 11/21/2023 3:48 AM EDT MAGNESIUM Routine 11/21/2023 3:48 AM EDT BASIC METABOLIC PANEL Routine 11/20/2023 6:55 AM EDT PHOSPHORUS Routine 11/20/2023 6:55 AM EDT CBC Routine 11/20/2023 6:55 AM EDT MAGNESIUM Routine 11/20/2023 6:55 AM EDT SODIUM, RANDOM URINE Routine 11/20/2023 1:27 AM EDT OSMOLALITY, URINE STAT 11/20/2023 1:2 7 AM EDT FOLIC ACID Add-on 11/19/2023 7:48 AM EDT IRON SCREEN, INCLUDING TIBC Add-on 11/19/2023 7:48 AM EDT PROTEIN Routine 11/19/2023 7:48 AM EDT OSMOLALITY, SERUM STAT 11/19/2023 7:4 8 AM EDT VITAMIN B12 Add-on 11/19/2023 7:48 AM EDT RETICULOCYTE PANEL Add-on 11/19/2023 4: 12 AM EDT BASIC METABOLIC PANEL Routine 11/19/2023 4:12 AM EDT PHOSPHORUS Routine 11/19/2023 4:12 AM EDT CBC Routine 11/19/2023 4:12 AM EDT MAGNESIUM Routine 11/19/2023 4:12 AM EDT ALBUMIN Add-on 11/19/2023 4:12 AM EDT XR ABDOMEN 1 VIEW Routine 11/18/2023 12: 03 PM EDT BASIC METABOLIC PANEL Routine 11/18/2023 4:44 AM EDT PHOSPHORUS Routine 11/18/2023 4:44 AM EDT CBC Routine 11/18/2023 4:44 AM EDT MAGNESIUM Routine 11/18/2023 4:44 AM EDT BASIC METABOLIC PANEL Routine 11/17/2023 5:40 AM EDT PHOSPHORUS Routine 11/17/2023 5:40 AM EDT MAGNESIUM Routine 11/17/2023 5:40 AM EDT EXTRA LAVENDER TOP Routine 11/17/2023 5: 37 AM EDT EXTRA TUBES Routine 11/17/2023 5:37 AM EDT EXTRA LAVENDER TOP Routine 11/16/2023 4: 36 AM EDT EXTRA TUBES Routine 11/16/2023 4:36 AM EDT BASIC METABOLIC PANEL Routine 11/16/2023 4:36 AM EDT PHOSPHORUS Routine 11/16/2023 4:36 AM EDT CBC STAT 11/16/2023 4:36 AM EDT MAGNESIUM Routine 11/16/2023 4:36 AM EDT US ENDOSCOPIC Routine 11/15/2023 3:47 PM EDT EGD, Flexible, w/Cyst Drainage 11/15/2023 2:57 PM EDT Pancreatitis Pancreatic pseudocyst/cyst EGD, w/Endoscopic US 11/15/2023 2:57 PM EDT Pancreatitis Pancreatic pseudocyst/cyst UPPER ENDOSCOPIC U/S 11/15/2023 2:12 PM EDT EXTRA LAVENDER TOP Routine 11/15/2023 4: 36 AM EDT EXTRA TUBES Routine 11/15/2023 4:36 AM EDT DIFFERENTIAL, AUTOMATED Add-on 11/15/2023 4:36 AM EDT BASIC METABOLIC PANEL Routine 11/15/2023 4:36 AM EDT CBC Add-on 11/15/2023 4:36 AM EDT PHOSPHORUS Routine 11/15/2023 4:36 AM EDT CALCIUM, IONIZED Routine 11/15/2023 4:36 AM EDT CBC Add-on 11/15/2023 4:36 AM EDT MAGNESIUM Routine 11/15/2023 4:36 AM EDT COMPREHENSIVE METABOLIC PANEL Routine 11/14/2023 5:30 AM EDT PHOSPHORUS Routine 11/14/2023 5:30 AM EDT CBC Routine 11/14/2023 5:30 AM EDT MAGNESIUM Routine 11/14/2023 5:30 AM EDT HC ECG TRACING ONLY Routine 11/13/2023 3 :54 PM EDT Chest pain XR CHEST 1 VIEW STAT 11/13/2023 3:08 PM EDT COMPREHENSIVE METABOLIC PANEL STAT 11/13/2023 3:02 PM EDT PT INR STAT 11/13/2023 3:02 PM EDT PHOSPHORUS STAT 11/13/2023 3:02 PM EDT APTT STAT 11/13/2023 3:02 PM EDT CBC STAT 11/13/2023 3:02 PM EDT MAGNESIUM STAT 11/13/2023 3:02 PM EDT documented in this encounter Results * (ABNORMAL) CBC (11/24/2023 4:55 AM EDT) [facility] WBC 7.66 4.00 - 10.80 K/uL 11/24/2023 5:40 AM EDT LABORATORY [facility] RBC 3.01 3.85 - 5.15 M/uL 11/24/2023 5:40 AM EDT LABORATORY [facility] HGB 8.9(L) 12.0 - 15.3 g/dL 11/24/2023 5:40 AM EDT LABORATORY GL HCT 26.8(L) 36.0 - 45.2 % 11/24/2023 5:40 AM EDT LABORATORY [facility] MCV 89.0 81.5 - 97.5 fL 11/24/2023 5:40 AM EDT LABORATORY [facility] MCH 29.6 27.0 - 34.0 pg 11/24/2023 5:40 AM EDT LABORATORY GL MCHC 33.2 32.0 - 36.0 g/dL 11/24/2023 5:40 AM EDT LABORATORY [facility] RDW 16.5 11.5 - 15.5 % 11/24/2023 5:40 AM EDT LABORATORY GL PLT 62(L) 140 - 400 K/uL 11/24/2023 5:40 AM EDT LABORATORY [facility] MPV 11.0 6.6 - 11.1 fL 11/24/2023 5:40 AM EDT LABORATORY GL nRBCs 0 <=0 /100 WBCs 11/24/2023 5:40 AM EDT LABORATORY [facility] Blood Venous blood specimen / Unknown Venipuncture / Unknown 11/24/2023 4:55 AM EDT 11/24/2023 5:21 AM EDT Pankaj Steen MD LAB BLOOD ORD ERABLES Performing Organization Address City/[facility]/ZIP Co de Phone Number LABORATORY [address] [address] * MAGNESIUM (11/24/2023 4:55 AM EDT) Magnesium 1.9 1.5 - 2.6 mg/dL 11/24/2023 5:55 AM EDT LABORATORY [facility] Blood Venous blood specimen / Unknown Venipuncture / Unknown 11/24/2023 4:55 AM EDT 11/24/2023 5:21 AM EDT Edy Herbert Leonora LAB BLOOD ORDERAB LES Performing Organization Address [facility] Co de Phone Number LABORATORY [address] [phone] * (ABNORMAL) PHOSPHORUS (11/24/2023 4:55 AM EDT) Phosphorus 2.1(L) 2.5 - 4.8 mg/dL 11/24/2023 5:55 AM EDT LABORATORY [facility] Blood Venous blood specimen / Unknown Venipuncture / Unknown 11/24/2023 4:55 AM EDT 11/24/2023 5:21 AM EDT Edy Lea DO LAB BLOOD ORDERAB LES Performing Organization Address [facility] de Phone Number LABORATORY [address] [phone] * (ABNORMAL) BASIC METABOLIC PANEL (11/24/2023 4:55 AM EDT) BUN 42(H) 6 - 20 mg/dL 11/24/2023 5:55 AM EDT LABORATORY [facility] Creatinine 0.9 0.5 - 1.0 mg/dL 11/24/2023 5:55 AM EDT LABORATORY [facility] Estimated Glomerular Filtration Rate 63 >=60 mL/min 11/24/2023 5:55 AM EDT LABORATORY [facility] Comment:eGFR is calculated b ased on the CKD-EPI 2020 equation Sodium 131(L) 135 - 146 mmol/L 11/24/2023 5:55 AM EDT LABORATORY [facility] Potassium 4.1 3.5 - 5.1 mmol/L 11/24/2023 5:55 AM EDT LABORATORY [facility] Chloride 100 98 - 107 mmol/L 11/24/2023 5:55 AM EDT LABORATORY [facility] CO2 18(L) 22 - 32 mmol/L 11/24/2023 5:55 AM EDT LABORATORY [facility] Anion Gap 13 7 - 15 mmol/L 11/24/2023 5:55 AM EDT LABORATORY [facility] Glucose 124(H) 70 - 120 mg/dL 11/24/2023 5:55 AM EDT LABORATORY [facility] Calcium 8.1(L) 8.4 - 10.2 mg/dL 11/24/2023 5:55 AM EDT LABORATORY [facility] Blood Venous blood specimen / Unknown Venipuncture / Unknown 11/24/2023 4:55 AM EDT 11/24/2023 5:21 AM EDT Edy Lea DO LAB BLOOD ORDERAB LES LABORATORY [address] [address] * (ABNORMAL) CBC (11/23/2023 8:26 AM EDT) WBC 6.94 4.00 - 10.80 K/uL 11/23/2023 8:49 AM EDT LABORATORY [facility] RBC 2.82 3.85 - 5.15 M/uL 11/23/2023 8:49 AM EDT LABORATORY [facility] HGB 8.6(L) 12.0 - 15.3 g/dL 11/23/2023 8:49 AM EDT LABORATORY [facility] HCT 25.4(L) 36.0 - 45.2 % 11/23/2023 8:49 AM EDT LABORATORY [facility] MCV 90.1 81.5 - 97.5 fL 11/23/2023 8:49 AM EDT LABORATORY [facility] MCH 30.5 27.0 - 34.0 pg 11/23/2023 8:49 AM EDT LABORATORY [facility] MCHC 33.9 32.0 - 36.0 g/dL 11/23/2023 8:49 AM EDT LABORATORY [facility] RDW 16.8 11.5 - 15.5 % 11/23/2023 8:49 AM EDT LABORATORY [facility] PLT 61(L) 140 - 400 K/uL 11/23/2023 8:49 AM EDT LABORATORY [facility] MPV 11.0 6.6 - 11.1 fL 11/23/2023 8:49 AM EDT LABORATORY [facility] nRBCs 0 <=0 /100 WBCs 11/23/2023 8:49 AM EDT LABORATORY [facility] Blood Venous blood specimen / Unknown Venipuncture / Unknown 11/23/2023 8:26 AM EDT 11/23/2023 8:38 AM EDT Pankaj Steen MD LAB BLOOD ORD ERABLES LABORATORY [address] [address] * EXTRA LAVENDER TOP (11/23/2023 4:20 AM EDT) Blood Venous blood specimen / Unknown 11/23/2023 4:20 AM EDT 11/23/2023 4:20 AM EDT Pankaj Steen MD LAB BLOOD ORD ERABLES LABORATORY [address] [phone] * MAGNESIUM (11/23/2023 4:11 AM EDT) Magnesium 1.9 1.5 - 2.6 mg/dL 11/23/2023 4:38 AM EDT LABORATORY [facility] Blood Venous blood specimen / Unknown Venipuncture / Unknown 11/23/2023 4:11 AM EDT 11/23/2023 4:18 AM EDT Edy Lea DO LAB BLOOD ORDERAB LES Performing Organization Address City/[facility] Co de Phone Number LABORATORY [address] [phone] * (ABNORMAL) PHOSPHORUS (11/23/2023 4:11 AM EDT) Phosphorus 2.1(L) 2.5 - 4.8 mg/dL 11/23/2023 4:38 AM EDT LABORATORY GL Blood Venous blood specimen / Unknown Venipuncture / Unknown 11/23/2023 4:11 AM EDT 11/23/2023 4:18 AM EDT Edy Herbert Leonora LAB BLOOD ORDERAB LES Performing Organization Address [facility] de Phone Number LABORATORY [address] [address] * (ABNORMAL) BASIC METABOLIC PANEL (11/23/2023 4:11 AM EDT) BUN 34(H) 6 - 20 mg/dL 11/23/2023 4:38 AM EDT LABORATORY GL Creatinine 1.0 0.5 - 1.0 mg/dL 11/23/2023 4:38 AM EDT LABORATORY [facility] Estimated Glomerular Filtration Rate 59(L) >=60 mL/min 11/23/2023 4:38 AM EDT LABORATORY [facility] Comment:eGFR is calculated b ased on the CKD-EPI 2020 equation Sodium 129(L) 135 - 146 mmol/L 11/23/2023 4:38 AM EDT LABORATORY [facility] Potassium 4.1 3.5 - 5.1 mmol/L 11/23/2023 4:38 AM EDT LABORATORY [facility] Chloride 98 98 - 107 mmol/L 11/23/2023 4:38 AM EDT LABORATORY [facility] CO2 18(L) 22 - 32 mmol/L 11/23/2023 4:38 AM EDT LABORATORY [facility] Anion Gap 13 7 - 15 mmol/L 11/23/2023 4:38 AM EDT LABORATORY [facility] Glucose 118 70 - 120 mg/dL 11/23/2023 4:38 AM EDT LABORATORY [facility] Calcium 8.1(L) 8.4 - 10.2 mg/dL 11/23/2023 4:38 AM EDT LABORATORY [facility] Blood Venous blood specimen / Unknown Venipuncture / Unknown 11/23/2023 4:11 AM EDT 11/23/2023 4:18 AM EDT Edy Lea LAB BLOOD ORDERAB LES LABORATORY [facility] [address] [place] [address] * UPPER GI ENDOSCOPY (11/22/2023 1:53 PM EDT) 11/22/2023 1:53 PM EDT Narrative Procedure Note Baljit Fernando MD - 11/22/2023 1:53 PM EDT [facility] Patient Name: Ally Luna Procedure Date: 11/22/2023 1:53 PM Date of : 1940 Admit Type: Inpatient Note Status:Finalized Date of : 1940 Admit Type: Inpatient Age: 83 Room: OR 1 Gender: Female Note Status: Finalized Procedure: Upper GI endoscopy Indications: Melena Providers: Margaret Shah DO (Doctor) Referring MD: Pankaj Steen MD, Baljit Fernando MD Complications: No immediate complications. Estimated blood loss:Minimal. Procedure: Pre-Anesthesia Assessment: - Prior to the procedure, a History and Physicalwas performed, and patient medications, allergies and sensitivities werereviewed. The patient's tolerance of previous anesthesia was reviewed. - The risks and benefits of the procedure and thesedation options and risks were discussed with the patient. All questions wereanswered and informed consent was obtained. - Patient identification and proposed procedurewere verified prior to the procedure by the physician, the nurse and the scientific informatics leader.The procedure was verified in the procedure room. - Pre-procedure physical examination revealed nocontraindications to sedation. 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 - After reviewing the risks and benefits, thepatient was deemed in satisfactory condition to undergo the procedure. - The anesthesia plan was to use generalanesthesia. - Immediately prior to administration ofmedications, the patient was re-assessed for adequacy to receive sedatives. - The heart rate, respiratory rate, oxygensaturations, blood pressure, adequacy of pulmonary ventilation, and response to care weremonitored throughout the procedure. - The physical status of the patient wasre-assessed after the procedure. After obtaining informed consent, the endoscope waspassed under direct vision. All instruments were visually inspected immediatelybefore and after removal from the patient to ensure they are fully intact. Throughoutthe procedure, the patient's blood pressure, pulse, and oxygen saturations weremonitored continuously. The was introduced through the mouth, and advanced to thethird part of duodenum. The upper GI endoscopy was accomplished without difficulty.The patient tolerated the procedure well. Findings & Specimens: The upper third of the esophagus and middle third of the esophaguswere normal. A mild Schatzki ring was found at the gastroesophageal junction. A medium-sized hiatal hernia was found. The proximal extent of thegastric folds (end of tubular esophagus) was 34 cm from the incisors. The hiatal narrowing was 38cm from the incisors. The Z-line was 34 cm from the incisors. A plastic stent was found in the gastric body (previously placedsolus stent), as the stent had migrated out of the Axios, removal from the stomach was accomplishedwith a Raptor grasping device. A previously placed cystgastrostomy stent (Axios) was found on theposterior wall of the gastric body. The stent appeared to be intact and in an appropriate positionwithout evidence of bleeding or old blood. There is no endoscopic evidence of bleeding in the entire examinedstomach. The examined duodenum was normal. Impression: - Normal upper third of esophagus and middle thirdof esophagus. - Mild Schatzki ring. - Medium-sized hiatal hernia. - Pre-existing gastric stent, removed. - Pre-existing gastric stent. - Normal examined duodenum. Recommendation: - [facility] - Full liquid diet today then only a low residuediet thereafter. - Observe patient's clinical course followingtoday's procedure with therapeutic intervention. - may discontinue proton pump inhibitor - hold anticoagulation and antiplatelet agents for1 week - if rebleeding occurs would recommend a tagged RBCstudy and referral to a center with Interventional Radiology support Margaret Shah DO 11/22/2023 2:19:40 PM This report has been signed electronically. Estimated Blood Loss: Estimated blood loss was minimal. Baljit Fernando MD GASTRO UPPER * MAGNESIUM (11/22/2023 3:53 AM EDT) Magnesium 1.8 1.5 - 2.6 mg/dL 11/22/2023 4:26 AM EDT LABORATORY [facility] Blood Venous blood specimen / Unknown Venipuncture / Unknown 11/22/2023 3:53 AM EDT 11/22/2023 4:04 AM EDT Edy Keon [facility] LAB BLOOD ORDERAB LES Performing Organization Address City/[facility]/ZIP Co de Phone Number LABORATORY [address] [address] * PHOSPHORUS (11/22/2023 3:53 AM EDT) Phosphorus 2.5 2.5 - 4.8 mg/dL 11/22/2023 4:26 AM EDT LABORATORY [facility] Blood Venous blood specimen / Unknown Venipuncture / Unknown 11/22/2023 3:53 AM EDT 11/22/2023 4:04 AM EDT Edy Keon Leonora DO LAB BLOOD ORDERAB LES Performing Organization Address City/[facility]/ZIP Co de Phone Number LABORATORY [address] [address] * (ABNORMAL) COMPREHENSIVE METABOLIC PANEL (11/22/2023 3:53 AM EDT) BUN 39(H) 6 - 20 mg/dL 11/22/2023 4:26 AM EDT LABORATORY [facility] Creatinine 1.1(H) 0.5 - 1.0 mg/dL 11/22/2023 4:26 AM EDT LABORATORY [facility] Estimated Glomerular Filtration Rate 49(L) >=60 mL/min 11/22/2023 4:26 AM EDT LABORATORY [facility] Comment:eGFR is calculated b ased on the CKD-EPI 2020 equation Sodium 127(L) 135 - 146 mmol/L 11/22/2023 4:26 AM EDT LABORATORY [facility] Potassium 4.1 3.5 - 5.1 mmol/L 11/22/2023 4:26 AM EDT LAB[facility]ATORY [facility] Chloride 96(L) 98 - 107 mmol/L 11/22/2023 4:26 AM EDT LAB[facility]ATORY [facility] CO2 19(L) 22 - 32 mmol/L 11/22/2023 4:26 AM EDT LAB[facility]ATORY [facility] Anion Gap 12 7 - 15 mmol/L 11/22/2023 4:26 AM EDT LAB[facility]ATORY [facility] Glucose 105 70 - 120 mg/dL 11/22/2023 4:26 AM EDT LAB[facility]ATORY [facility] Albumin 2.9(L) 3.8 - 5.0 g/dL 11/22/2023 4:26 AM EDT LABORATORY [facility] AST 22 10 - 35 U/L 11/22/2023 4:26 AM EDT LAB[facility]ATORY [facility] Alkaline Phosphatase 72 35 - 130 U/L 11/22/2023 4:26 AM EDT LAB[facility]ATORY [facility] Bilirubin, Total 1.0 <=1.2 mg/dL 11/22/2023 4:26 AM EDT LAB[facility]ATORY [facility] Calcium 8.0(L) 8.4 - 10.2 mg/dL 11/22/2023 4:26 AM EDT LABORATORY [facility] Protein 5.3(L) 6.0 - 8.3 g/dL 11/22/2023 4:26 AM EDT LABORATORY [facility] ALT 14 10 - 35 U/L 11/22/2023 4:26 AM EDT LAB[facility]ATORY [facility] Blood Venous blood specimen / Unknown Venipuncture / Unknown 11/22/2023 3:53 AM EDT 11/22/2023 4:04 AM EDT Rashida ARCHULETA LAB BLOOD OR DERABLES LABORATORY [facility] [address] [place] [address] * (ABNORMAL) CBC (11/22/2023 3:53 AM EDT) WBC 8.18 4.00 - 10.80 K/uL 11/22/2023 4:09 AM EDT LABORATORY [facility] RBC 3.03 3.85 - 5.15 M/uL 11/22/2023 4:09 AM EDT LABORATORY [facility] HGB 9.1(L) 12.0 - 15.3 g/dL 11/22/2023 4:09 AM EDT LABORATORY GL HCT 27.2(L) 36.0 - 45.2 % 11/22/2023 4:09 AM EDT LABORATORY [facility] MCV 89.8 81.5 - 97.5 fL 11/22/2023 4:09 AM EDT LABORATORY [facility] MCH 30.0 27.0 - 34.0 pg 11/22/2023 4:09 AM EDT LABORATORY [facility] MCHC 33.5 32.0 - 36.0 g/dL 11/22/2023 4:09 AM EDT LABORATORY [facility] RDW 16.4 11.5 - 15.5 % 11/22/2023 4:09 AM EDT LABORATORY [facility] PLT 64(L) 140 - 400 K/uL 11/22/2023 4:09 AM EDT LABORATORY [facility] MPV 10.6 6.6 - 11.1 fL 11/22/2023 4:09 AM EDT LABORATORY [facility] nRBCs 0 <=0 /100 WBCs 11/22/2023 4:09 AM EDT LABORATORY [facility] Blood Venous blood specimen / Unknown Venipuncture / Unknown 11/22/2023 3:53 AM EDT 11/22/2023 4:04 AM EDT Rashida ARCHULETA LAB BLOOD OR DERABLES Performing Organization Address City/[facility]/ZIP Co de Phone Number LABORATORY [address] [phone] * CT ABD/PELVIS WO IV/ORAL CONTRAST (11/21/2023 6:30 PM EDT) Anatomical Region Laterality Modality Body, Abdomen, Pelvis Computed T omography 11/21/2023 6:27 PM EDT Impressions 11/21/2023 7:08 PM EDT IMPRESSION: 1. There is enlargement and inflammatory changes of the pancreas. 2. There is a axios stent communicating between stomach and a previous pseudo cyst. 3. There is ascites fluid in the abdomen and pelvis 4. There is no bowel obstruction THIS DOCUMENT HAS BEEN ELECTRONICALLY SIGNED BY LAKESHA GIRALDO MD Narrative 11/21/2023 7:08 PM EDT PROCEDURE INFORMATION: Exam: CT Abdomen And Pelvis Without Contrast Exam date and time: 11/21/2023 6:27 PM Age: 83 years old Clinical indication: Other: Pancreatic pseudocyst recently tx with axios stent placement, now having black stools. TECHNIQUE: Imaging protocol: Computed tomography of the abdomen and pelvis without contrast. Radiation optimization: All CT scans at this facility use at least one of these dose optimization techniques: automated exposure control; mA and/or kV adjustment per patient size (includes targeted exams where dose is matched to clinical indication); or iterative reconstruction. COMPARISON: DX XR ABDOMEN 1 VIEW 11/18/2023 11:55 AM FINDINGS: Liver: Normal. No mass. Gallbladder and bile ducts: Normal. No calcified stones. No ductal dilation. Pancreas: There is enlargement and indistinctness to the margins of the pancreas compatible with pancreatitis. Spleen: Normal. No splenomegaly. Adrenal glands: Normal. No mass. Kidneys and ureters: Normal. No hydronephrosis. Stomach and bowel: There is a axios stent communicating between the stomach and a previous pseudocyst Appendix: No evidence of appendicitis. Intraperitoneal space: There is ascites fluid in the abdomen and pelvis. The density is 5 Hounsfield unit. There is no bowel obstruction and there is no distension of bowel loops. There is no intra-abdominal abscess Vasculature: Unremarkable. No abdominal aortic aneurysm. Lymph nodes: Unremarkable. No enlarged lymph nodes. Urinary bladder: Unremarkable as visualized. Reproductive: Unremarkable as visualized. Bones/joints: Unremarkable. No acute fracture. Soft tissues: Unremarkable. Procedure Note Lakesha Giraldo MD - 11/21/2023 PROCEDURE INFORMATION: Exam: CT Abdomen And Pelvis Without Contrast Exam date and time: 11/21/2023 6:27 PM Age: 83 years old Clinical indication: Other: Pancreatic pseudocyst recently tx with axiosstent placement, now having black stools. TECHNIQUE: Imaging protocol: Computed tomography of the abdomen and pelvis without contrast. Radiation optimization: All CT scans at this facility use at least one ofthese dose optimization techniques: automated exposure control; mA and/or kV adjustment per patient size (includes targeted exams where dose is matchedto clinical indication); or iterative reconstruction. COMPARISON: DX XR ABDOMEN 1 VIEW 11/18/2023 11:55 AM FINDINGS: Liver: Normal. No mass. Gallbladder and bile ducts: Normal. No calcified stones. No ductaldilation. Pancreas: There is enlargement and indistinctness to the margins of the pancreas compatible with pancreatitis. Spleen: Normal. No splenomegaly. Adrenal glands: Normal. No mass. Kidneys and ureters: Normal. No hydronephrosis. Stomach and bowel: There is a axios stent communicating between thestomach and a previous pseudocyst Appendix: No evidence of appendicitis. Intraperitoneal space: There is ascites fluid in the abdomen and pelvis.The density is 5 Hounsfield unit. There is no bowel obstruction and there isno distension of bowel loops. There is no intra-abdominal abscess Vasculature: Unremarkable. No abdominal aortic aneurysm. Lymph nodes: Unremarkable. No enlarged lymph nodes. Urinary bladder: Unremarkable as visualized. Reproductive: Unremarkable as visualized. Bones/joints: Unremarkable. No acute fracture. Soft tissues: Unremarkable. IMPRESSION IMPRESSION: 1. There is enlargement and inflammatory changes of the pancreas. 2. There is a axios stent communicating between stomach and a previouspseudo cyst. 3. There is ascites fluid in the abdomen and pelvis 4. There is no bowel obstruction THIS DOCUMENT HAS BEEN ELECTRONICALLY SIGNED BY LAKESHA GIRALDO MD Rashida Stevenson [employer] CT * (ABNORMAL) HEMOGLOBIN AND HEMATOCRIT PANEL (11/21/2023 5:47 PM EDT) HGB 9.2(L) 12.0 - 15.3 g/dL 11/21/2023 6:18 PM EDT LABORATORY [facility] HCT 27.2(L) 36.0 - 45.2 % 11/21/2023 6:18 PM EDT LABORATORY [facility] Blood Venous blood specimen / Unknown Venipuncture / Unknown 11/21/2023 5:47 PM EDT 11/21/2023 5:57 PM EDT Rashida Hermosilloalirio ARCHULETA LAB BLOOD OR DERABLES Performing Organization Address City/[facility]/ZIP Co de Phone Number LABORATORY [address] [phone] * TRANSFUSE PACKED RED BLOOD CELLS (11/21/2023 5:11 PM EDT) Newton Espinozao PA-C BLD BANK TRANFUSE OR DERABLES * TRANSFUSE PACKED RED BLOOD CELLS (11/21/2023 5:11 PM EDT) Newton Espinozao PA-C BLD BANK TRANFUSE OR DERABLES * TYPE AND SCREEN (11/21/2023 7:02 AM EDT) ABO A 11/21/2023 12:48 PM EDT LABORATORY [facility] BLOOD BANK Rh Positive 11/21/2023 12:48 PM EDT LABORATORY [facility] BLOOD BANK Red Blood Cell Antibody Screen Negative 11/21/2023 12:48 PM EDT LABORATORY [facility] BLOOD BANK Specimen Expiration Date 11/24/2023 23:59 11/21/2023 12:48 PM EDT LABORATORY [facility] BLOOD BANK Blood Venous blood specimen / Unknown Venipuncture / Unknown 11/21/2023 7:02 AM EDT 11/21/2023 7:11 AM EDT Newton Gaviria PA-C LAB BLOOD BANK TEST ORDERABLES Performing Organization Address City/[facility]/ZIP Co de Phone Number LABORATORY [facility] BLOOD BANK [address] [place] [phone] * PREPARE PACKED RED BLOOD CELLS (11/21/2023 6:25 AM EDT) Unit Product Code [id number] 11/22/2023 2:05 PM EDT LABORATORY [facility] BLOOD BANK Unit Number [id number] 11/22/2023 2:05 PM EDT LABORATORY [facility] BLOOD BANK Unit ABO A 11/22/2023 2:05 PM EDT LABORATORY [facility] BLOOD BANK Unit Rh POS 11/22/2023 2:05 PM EDT LABORATORY [facility] BLOOD BANK Unit Crossmatch Compatible 11/21/2023 12:54 PM EDT LABORATORY [facility] BLOOD BANK Unit Status PT 11/22/2023 2:05 PM EDT LABORATORY [facility] BLOOD BANK Unit Blood Type APOS 11/22/2023 2:05 PM EDT LABORATORY [facility] BLOOD BANK Unit Expiration [id number] 11/22/2023 2:05 PM EDT LABORATORY [facility] BLOOD BANK Unit Barcode [id number] 11/22/2023 2:05 PM EDT LABORATORY [facility] BLOOD BANK 11/21/2023 6:25 AM EDT Newton Gaviria PA-C BLD BANK PRODUCT ORD ERABLES LABORATORY [facility] BLOOD BANK [address] [place] [id number] * (ABNORMAL) CBC (11/21/2023 3:49 AM EDT) [facility] WBC 6.60 4.00 - 10.80 K/uL 11/21/2023 4:53 AM EDT LABORATORY [facility] RBC 2.26 3.85 - 5.15 M/uL 11/21/2023 4:53 AM EDT LABORATORY [facility] HGB 6.9(L) 12.0 - 15.3 g/dL 11/21/2023 4:53 AM EDT LABORATORY GL HCT 20.6(L) 36.0 - 45.2 % 11/21/2023 4:53 AM EDT LABORATORY GL MCV 91.2 81.5 - 97.5 fL 11/21/2023 4:53 AM EDT LABORATORY GL MCH 30.5 27.0 - 34.0 pg 11/21/2023 4:53 AM EDT LABORATORY [facility] MCHC 33.5 32.0 - 36.0 g/dL 11/21/2023 4:53 AM EDT LABORATORY [facility] RDW 15.6 11.5 - 15.5 % 11/21/2023 4:53 AM EDT LABORATORY [facility] PLT 51(L) 140 - 400 K/uL 11/21/2023 4:53 AM EDT LABORATORY [facility] MPV 10.6 6.6 - 11.1 fL 11/21/2023 4:53 AM EDT LABORATORY [facility] nRBCs 0 <=0 /100 WBCs 11/21/2023 4:53 AM EDT LABORATORY [facility] Blood Venous blood specimen / Unknown Venipuncture / Unknown 11/21/2023 3:49 AM EDT 11/21/2023 3:57 AM EDT Rashida ARCHULETA LAB BLOOD OR DERABLES Performing Organization Address City/[facility] Co de Phone Number LABORATORY [address] [phone] * BILIRUBIN, DIRECT (11/21/2023 3:48 AM EDT) Bilirubin, Direct <0.2 0.0 - 0.3 mg/dL 11/21/2023 4:20 AM EDT LABORATORY [facility] Blood Venous blood specimen / Unknown Venipuncture / Unknown 11/21/2023 3:48 AM EDT 11/21/2023 3:57 AM EDT Edy Keon Leonora DO LAB BLOOD ORDERAB LES Performing Organization Address [facility] Co de Phone Number LABORATORY [address] [address] * MAGNESIUM (11/21/2023 3:48 AM EDT) Magnesium 1.9 1.5 - 2.6 mg/dL 11/21/2023 4:20 AM EDT LABORATORY [facility] Blood Venous blood specimen / Unknown Venipuncture / Unknown 11/21/2023 3:48 AM EDT 11/21/2023 3:57 AM EDT Edy Keon Leonora DO LAB BLOOD ORDERAB LES Performing Organization Address City/[facility]/ZIP Co de Phone Number LABORATORY [facility] [address] [place] [address] * PHOSPHORUS (11/21/2023 3:48 AM EDT) Phosphorus 3.1 2.5 - 4.8 mg/dL 11/21/2023 4:20 AM EDT LABORATORY GL Blood Venous blood specimen / Unknown Venipuncture / Unknown 11/21/2023 3:48 AM EDT 11/21/2023 3:57 AM EDT Edy Herbert Leonora DO LAB BLOOD ORDERAB LES LABORATORY [facility] [address] [place], [place] [id number] * (ABNORMAL) COMPREHENSIVE METABOLIC PANEL (11/21/2023 3:48 AM EDT) BUN 36(H) 6 - 20 mg/dL 11/21/2023 4:20 AM EDT LABORATORY GL Creatinine 1.4(H) 0.5 - 1.0 mg/dL 11/21/2023 4:20 AM EDT LABORATORY [facility] Estimated Glomerular Filtration Rate 38(L) >=60 mL/min 11/21/2023 4:20 AM EDT LABORATORY [facility] Comment:eGFR is calculated b ased on the CKD-EPI 2020 equation Sodium 125(L) 135 - 146 mmol/L 11/21/2023 4:20 AM EDT LABORATORY [facility] Potassium 4.5 3.5 - 5.1 mmol/L 11/21/2023 4:20 AM EDT LABORATORY [facility] Chloride 96(L) 98 - 107 mmol/L 11/21/2023 4:20 AM EDT LABORATORY [facility] CO2 21(L) 22 - 32 mmol/L 11/21/2023 4:20 AM EDT LABORATORY [facility] Anion Gap 8 7 - 15 mmol/L 11/21/2023 4:20 AM EDT LABORATORY [facility] Glucose 104 70 - 120 mg/dL 11/21/2023 4:20 AM EDT LABORATORY [facility] Albumin 2.6(L) 3.8 - 5.0 g/dL 11/21/2023 4:20 AM EDT LABORATORY [facility] AST 21 10 - 35 U/L 11/21/2023 4:20 AM EDT LABORATORY [facility] Alkaline Phosphatase 61 35 - 130 U/L 11/21/2023 4:20 AM EDT LABORATORY [facility] Bilirubin, Total 0.5 <=1.2 mg/dL 11/21/2023 4:20 AM EDT LABORATORY [facility] Calcium 7.8(L) 8.4 - 10.2 mg/dL 11/21/2023 4:20 AM EDT LABORATORY [facility] Protein 4.6(L) 6.0 - 8.3 g/dL 11/21/2023 4:20 AM EDT LABORATORY [facility] ALT 12 10 - 35 U/L 11/21/2023 4:20 AM EDT LABORATORY [facility] Blood Venous blood specimen / Unknown Venipuncture / Unknown 11/21/2023 3:48 AM EDT 11/21/2023 3:57 AM EDT Rashida ARCHULETA LAB BLOOD OR DERABLES LABORATORY [address] [address] * TRIGLYCERIDES (11/21/2023 3:48 AM EDT) Pathologist [facility] [place] Triglycerides 62 <=174 mg/dL 11/21/2023 3:58 PM EDT LABORATORY [facility] Comment: Triglyceride Reference Ranges (mg/dL): <150 Acceptable 150-174 Borderline high 175-499 High >=500 Very high Blood Venous blood specimen / Unknown Venipuncture / Unknown 11/21/2023 3:48 AM EDT 11/21/2023 3:57 AM EDT Edy Lea DO LAB BLOOD ORDERAB LES LABORATORY [facility] [address] [place] [address] * MAGNESIUM (11/20/2023 6:55 AM EDT) Magnesium 1.9 1.5 - 2.6 mg/dL 11/20/2023 7:30 AM EDT LABORATORY GL Blood Venous blood specimen / Unknown Venipuncture / Unknown 11/20/2023 6:55 AM EDT 11/20/2023 7:02 AM EDT Edy Herbert [facility] LAB BLOOD ORDERAB LES Performing Organization Address City/[facility]/ZIP Co de Phone Number LABORATORY [address] [address] * PHOSPHORUS (11/20/2023 6:55 AM EDT) Phosphorus 3.6 2.5 - 4.8 mg/dL 11/20/2023 7:30 AM EDT LABORATORY [facility] Blood Venous blood specimen / Unknown Venipuncture / Unknown 11/20/2023 6:55 AM EDT 11/20/2023 7:02 AM EDT Edy Herbert [facility] LAB BLOOD ORDERAB LES Performing Organization Address City/[facility]/ZIP Co de Phone Number LABORATORY [address] [address] * (ABNORMAL) BASIC METABOLIC PANEL (11/20/2023 6:55 AM EDT) BUN 32(H) 6 - 20 mg/dL 11/20/2023 7:30 AM EDT LABORATORY [facility] Creatinine 1.3(H) 0.5 - 1.0 mg/dL 11/20/2023 7:30 AM EDT LABORATORY [facility] Estimated Glomerular Filtration Rate 42(L) >=60 mL/min 11/20/2023 7:30 AM EDT LABORATORY [facility] Comment:eGFR is calculated b ased on the CKD-EPI 2020 equation Sodium 128(L) 135 - 146 mmol/L 11/20/2023 7:30 AM EDT LABORATORY [facility] Potassium 4.6 3.5 - 5.1 mmol/L 11/20/2023 7:30 AM EDT LABORATORY [facility] Chloride 95(L) 98 - 107 mmol/L 11/20/2023 7:30 AM EDT LABORATORY [facility] CO2 21(L) 22 - 32 mmol/L 11/20/2023 7:30 AM EDT LABORATORY [facility] Anion Gap 12 7 - 15 mmol/L 11/20/2023 7:30 AM EDT LABORATORY [facility] Glucose 103 70 - 120 mg/dL 11/20/2023 7:30 AM EDT LABORATORY [facility] Calcium 8.3(L) 8.4 - 10.2 mg/dL 11/20/2023 7:30 AM EDT LABORATORY [facility] Blood Venous blood specimen / Unknown Venipuncture / Unknown 11/20/2023 6:55 AM EDT 11/20/2023 7:02 AM EDT Edy Lea DO LAB BLOOD ORDERAB LES LABORATORY [facility] [address] [place] [address] * (ABNORMAL) CBC (11/20/2023 6:55 AM EDT) WBC 7.60 4.00 - 10.80 K/uL 11/20/2023 7:16 AM EDT LABORATORY [facility] RBC 2.53 3.85 - 5.15 M/uL 11/20/2023 7:16 AM EDT LABORATORY [facility] HGB 7.9(L) 12.0 - 15.3 g/dL 11/20/2023 7:16 AM EDT LABORATORY [facility] HCT 23.2(L) 36.0 - 45.2 % 11/20/2023 7:16 AM EDT LABORATORY [facility] MCV 91.7 81.5 - 97.5 fL 11/20/2023 7:16 AM EDT LABORATORY [facility] MCH 31.2 27.0 - 34.0 pg 11/20/2023 7:16 AM EDT LABORATORY [facility] MCHC 34.1 32.0 - 36.0 g/dL 11/20/2023 7:16 AM EDT LABORATORY [facility] RDW 15.6 11.5 - 15.5 % 11/20/2023 7:16 AM EDT LABORATORY [facility] PLT 59(L) 140 - 400 K/uL 11/20/2023 7:16 AM EDT LABORATORY [facility] MPV 11.1 6.6 - 11.1 fL 11/20/2023 7:16 AM EDT LABORATORY [facility] nRBCs 0 <=0 /100 WBCs 11/20/2023 7:16 AM EDT LABORATORY [facility] Blood Venous blood specimen / Unknown Venipuncture / Unknown 11/20/2023 6:55 AM EDT 11/20/2023 7:02 AM EDT Rashida Sophy Tesfayestanislaw GEREMIAS LAB BLOOD OR DERABLES Performing Organization Address [facility] Co de Phone Number LABORATORY [address] [address] * SODIUM, RANDOM URINE (11/20/2023 1:27 AM EDT) Sodium, Random Urine 54 mmol/L 11/20/2023 1:47 AM EDT LABORATORY [facility] Urine Urine specimen obtained by clean catch procedure / Unknown Non-blood Collection / Unknown 11/20/2023 1:27 AM EDT 11/20/2023 1:33 AM EDT Rashida Sophy Bostanislaw [employer] LAB URINE OR DERABLES Performing Organization Address [facility] de Phone Number LABORATORY [address] [address] * OSMOLALITY, URINE (11/20/2023 1:27 AM EDT) Osmolality, Urine 343 50 - 1,200 mOsm/kg 11/20/2023 2:08 AM EDT LABORATORY [facility] Urine Urine specimen obtained by clean catch procedure / Unknown Non-blood Collection / Unknown 11/20/2023 1:27 AM EDT 11/20/2023 1:33 AM EDT Rashida Sophy Graham [employer] LAB URINE OR DERABLES Performing Organization Address [facility] de Phone Number LABORATORY [address] [address] * FOLIC ACID (11/19/2023 7:48 AM EDT) Pathologist [facility] [place] Folic Acid 13.4 >4.5 ng/mL 11/20/2023 1:10 AM EDT LABORATORY [facility] Blood Venous blood specimen / Unknown Venipuncture / Unknown 11/19/2023 7:48 AM EDT 11/19/2023 7:51 AM EDT Rashida ARCHULETA LAB BLOOD OR DERABLES Performing Organization Address City/[facility]/ZIP Co de Phone Number LABORATORY [facility] [address] [place] [address] * VITAMIN B12 (11/19/2023 7:48 AM EDT) Pathologist [facility] [place] Vitamin B12 617 232 - 1,245 pg/mL 11/20/2023 1:10 AM EDT LABORATORY [facility] Blood Venous blood specimen / Unknown Venipuncture / Unknown 11/19/2023 7:48 AM EDT 11/19/2023 7:51 AM EDT Rashida ARCHULETA LAB BLOOD OR DERABLES Performing Organization Address [facility] Co de Phone Number LABORATORY [place] [address] [place] [address] * (ABNORMAL) IRON SCREEN, INCLUDING TIBC (11/19/2023 7:48 AM EDT) Pathologist [facility] [place] Iron 30(L) 33 - 151 ug/dL 11/20/2023 12:20 AM EDT LABORATORY [facility] Iron Binding Capacity 164(L) 250 - 425 ug/dL 11/20/2023 12:20 AM EDT LABORATORY [facility] Transferrin Saturation Percent 18 15 - 55 % 11/20/2023 12:20 AM EDT LABORATORY [facility] Blood Venous blood specimen / Unknown Venipuncture / Unknown 11/19/2023 7:48 AM EDT 11/19/2023 7:51 AM EDT Rashida FRAZIERNP LAB BLOOD OR DERABLES LABORATORY [facility] [address] [place] [address] * (ABNORMAL) PROTEIN (11/19/2023 7:48 AM EDT) [facility] Protein 4.7(L) 6.0 - 8.3 g/dL 11/19/2023 8:05 AM EDT LABORATORY [facility] Blood Venous blood specimen / Unknown Venipuncture / Unknown 11/19/2023 7:48 AM EDT 11/19/2023 7:51 AM EDT Rashida ARCHULETA LAB BLOOD OR DERABLES Performing Organization Address City/[facility] Co de Phone Number LABORATORY [address] [address] * (ABNORMAL) OSMOLALITY, SERUM (11/19/2023 7:48 AM EDT) [facility] Osmolality, Serum 277(L) 278 - 305 mOsm/kg 11/19/2023 8:55 AM EDT LABORATORY [facility] Blood Venous blood specimen / Unknown Venipuncture / Unknown 11/19/2023 7:48 AM EDT 11/19/2023 7:51 AM EDT Rashida ARCHULETA LAB BLOOD OR DERABLES Performing Organization Address City/[facility] Co de Phone Number LABORATORY [address] [address] * (ABNORMAL) RETICULOCYTE PANEL (11/19/2023 4:12 AM EDT) [facility] Reticulocyte Percent 4.10(H) 0.80 - 1.90 % 11/19/2023 12:27 PM EDT LABORATORY [facility] Absolute Reticulocyte 94.3 31.3 - 100.1 K/uL 11/19/2023 12:27 PM EDT LABORATORY [facility] Immature Reticuloctye Fraction 23.6(H) 2.5 - 20.6 % 11/19/2023 12:27 PM EDT LABORATORY [facility] Reticulocyte Hemoglobin 30.7 29.7 - 37.4 pg 11/19/2023 12:27 PM EDT LABORATORY [facility] Blood Venous blood specimen / Unknown Venipuncture / Unknown 11/19/2023 4:12 AM EDT 11/19/2023 4:30 AM EDT Rashida ARCHULETA LAB BLOOD OR DERABLES Performing Organization Address City/[facility] Co de Phone Number LABORATORY [address] [address] * (ABNORMAL) ALBUMIN (11/19/2023 4:12 AM EDT) Albumin 2.5(L) 3.8 - 5.0 g/dL 11/19/2023 7:51 AM EDT LABORATORY [facility] Blood Venous blood specimen / Unknown Venipuncture / Unknown 11/19/2023 4:12 AM EDT 11/19/2023 4:30 AM EDT Rashida Stevenson [employer] LAB BLOOD OR DERABLES Performing Organization Address [facility] de Phone Number LABORATORY [address] [address] * MAGNESIUM (11/19/2023 4:12 AM EDT) Magnesium 2.1 1.5 - 2.6 mg/dL 11/19/2023 4:52 AM EDT LABORATORY [facility] Blood Venous blood specimen / Unknown Venipuncture / Unknown 11/19/2023 4:12 AM EDT 11/19/2023 4:30 AM EDT Edy Lea DO LAB BLOOD ORDERAB LES Performing Organization Address [facility] Co de Phone Number LABORATORY [address] [address] * PHOSPHORUS (11/19/2023 4:12 AM EDT) Phosphorus 4.4 2.5 - 4.8 mg/dL 11/19/2023 4:52 AM EDT LABORATORY [facility] Blood Venous blood specimen / Unknown Venipuncture / Unknown 11/19/2023 4:12 AM EDT 11/19/2023 4:30 AM EDT Edy Lea DO LAB BLOOD ORDERAB LES LABORATORY [facility] [address] [place], [place] [id number] * (ABNORMAL) BASIC METABOLIC PANEL (11/19/2023 4:12 AM EDT) BUN 29(H) 6 - 20 mg/dL 11/19/2023 4:52 AM EDT LABORATORY GL Creatinine 1.0 0.5 - 1.0 mg/dL 11/19/2023 4:52 AM EDT LABORATORY [facility] Estimated Glomerular Filtration Rate 55(L) >=60 mL/min 11/19/2023 4:52 AM EDT LABORATORY [facility] Comment:eGFR is calculated b ased on the CKD-EPI 2020 equation Sodium 128(L) 135 - 146 mmol/L 11/19/2023 4:52 AM EDT LABORATORY [facility] Potassium 4.8 3.5 - 5.1 mmol/L 11/19/2023 4:52 AM EDT LABORATORY [facility] Chloride 96(L) 98 - 107 mmol/L 11/19/2023 4:52 AM EDT LABORATORY [facility] CO2 20(L) 22 - 32 mmol/L 11/19/2023 4:52 AM EDT LABORATORY [facility] Anion Gap 12 7 - 15 mmol/L 11/19/2023 4:52 AM EDT LABORATORY [facility] Glucose 116 70 - 120 mg/dL 11/19/2023 4:52 AM EDT LABORATORY [facility] Calcium 8.4 8.4 - 10.2 mg/dL 11/19/2023 4:52 AM EDT LABORATORY GL Blood Venous blood specimen / Unknown Venipuncture / Unknown 11/19/2023 4:12 AM EDT 11/19/2023 4:30 AM EDT Edy Lea DO LAB BLOOD ORDERAB LES LABORATORY [facility] [address] [place] [address] * (ABNORMAL) CBC (11/19/2023 4:12 AM EDT) WBC 6.22 4.00 - 10.80 K/uL 11/19/2023 4:35 AM EDT LABORATORY [facility] RBC 2.33 3.85 - 5.15 M/uL 11/19/2023 4:35 AM EDT LABORATORY [facility] HGB 7.1(L) 12.0 - 15.3 g/dL 11/19/2023 4:35 AM EDT LABORATORY [facility] HCT 21.3(L) 36.0 - 45.2 % 11/19/2023 4:35 AM EDT LABORATORY [facility] MCV 91.4 81.5 - 97.5 fL 11/19/2023 4:35 AM EDT LABORATORY [facility] MCH 30.5 27.0 - 34.0 pg 11/19/2023 4:35 AM EDT LABORATORY [facility] MCHC 33.3 32.0 - 36.0 g/dL 11/19/2023 4:35 AM EDT LABORATORY [facility] RDW 15.1 11.5 - 15.5 % 11/19/2023 4:35 AM EDT LABORATORY [facility] PLT 46(L) 140 - 400 K/uL 11/19/2023 4:35 AM EDT LABORATORY [facility] MPV 11.2 6.6 - 11.1 fL 11/19/2023 4:35 AM EDT LABORATORY [facility] nRBCs 0 <=0 /100 WBCs 11/19/2023 4:35 AM EDT LABORATORY [facility] Blood Venous blood specimen / Unknown Venipuncture / Unknown 11/19/2023 4:12 AM EDT 11/19/2023 4:30 AM EDT Edy Lea DO LAB BLOOD ORDERAB LES LABORATORY [facility] [address] [place] [address] * XR ABDOMEN 1 VIEW (11/18/2023 12:03 PM EDT) Anatomical Region Laterality Modality Abdomen, Pelvis Digital Radiogra phy 11/18/2023 11:5 5 AM EDT Impressions 11/19/2023 9:18 AM EDT IMPRESSION: Nonspecific stool and gas pattern THIS DOCUMENT HAS BEEN ELECTRONICALLY SIGNED BY CELSA MUNOZ MD Narrative 11/19/2023 9:18 AM EDT PROCEDURE INFORMATION: Exam: XR Abdomen Exam date and time: 11/18/2023 11:55 AM Age: 83 years old Clinical indication: Other: Ileus TECHNIQUE: Imaging protocol: Radiologic exam of the abdomen. Views: Frontal supine view of the abdomen. 1 View. COMPARISON: DX XR CHEST 1 VIEW 11/13/2023 2:47 PM FINDINGS: Gastrointestinal tract: The stool and gas pattern is nonspecific. Intraperitoneal space: There are stents within the left upper quadrant Bones/joints: There is superolateral hip joint space narrowing on the right. There is bone on bone. There is degenerative change at the left hip as well. There is degenerative change in the lumbar spine. There are old pubic fractures on the left Procedure Note Celsa Munoz MD - 11/19/2023 PROCEDURE INFORMATION: Exam: XR Abdomen Exam date and time: 11/18/2023 11:55 AM Age: 83 years old Clinical indication: Other: Ileus TECHNIQUE: Imaging protocol: Radiologic exam of the abdomen. Views: Frontal supine view of the abdomen. 1 View. COMPARISON: DX XR CHEST 1 VIEW 11/13/2023 2:47 PM FINDINGS: Gastrointestinal tract: The stool and gas pattern is nonspecific. Intraperitoneal space: There are stents within the left upper quadrant Bones/joints: There is superolateral hip joint space narrowing on theright. There is bone on bone. There is degenerative change at the left hip aswell. There is degenerative change in the lumbar spine. There are old pubicfractures on the left IMPRESSION IMPRESSION: Nonspecific stool and gas pattern THIS DOCUMENT HAS BEEN ELECTRONICALLY SIGNED BY CELSA MUNOZ MD Edy Lea DO RADIOLOGY (RAD NERLA) * MAGNESIUM (11/18/2023 4:44 AM EDT) Magnesium 2.1 1.5 - 2.6 mg/dL 11/18/2023 5:34 AM EDT LABORATORY GL Blood Venous blood specimen / Unknown Venipuncture / Unknown 11/18/2023 4:44 AM EDT 11/18/2023 5:01 AM EDT Edy Herbert Leonora DO LAB BLOOD ORDERAB LES Performing Organization Address City/[facility]/ZIP Co de Phone Number LABORATORY [address] [address] * PHOSPHORUS (11/18/2023 4:44 AM EDT) Phosphorus 4.0 2.5 - 4.8 mg/dL 11/18/2023 5:34 AM EDT LABORATORY [facility] Blood Venous blood specimen / Unknown Venipuncture / Unknown 11/18/2023 4:44 AM EDT 11/18/2023 5:01 AM EDT Edy Keon [facility] LAB BLOOD ORDERAB LES Performing Organization Address City/[facility]/ZIP Co de Phone Number LABORATORY [address] [address] * (ABNORMAL) BASIC METABOLIC PANEL (11/18/2023 4:44 AM EDT) BUN 31(H) 6 - 20 mg/dL 11/18/2023 5:34 AM EDT LABORATORY GL Creatinine 0.9 0.5 - 1.0 mg/dL 11/18/2023 5:34 AM EDT LABORATORY GL Estimated Glomerular Filtration Rate 60 >=60 mL/min 11/18/2023 5:34 AM EDT LABORATORY [facility] Comment:eGFR is calculated b ased on the CKD-EPI 2020 equation Sodium 129(L) 135 - 146 mmol/L 11/18/2023 5:34 AM EDT LABORATORY [facility] Potassium 4.6 3.5 - 5.1 mmol/L 11/18/2023 5:34 AM EDT LABORATORY [facility] Chloride 96(L) 98 - 107 mmol/L 11/18/2023 5:34 AM EDT LABORATORY [facility] CO2 22 22 - 32 mmol/L 11/18/2023 5:34 AM EDT LABORATORY [facility] Anion Gap 11 7 - 15 mmol/L 11/18/2023 5:34 AM EDT LABORATORY [facility] Glucose 115 70 - 120 mg/dL 11/18/2023 5:34 AM EDT LABORATORY [facility] Calcium 8.4 8.4 - 10.2 mg/dL 11/18/2023 5:34 AM EDT LABORATORY [facility] Blood Venous blood specimen / Unknown Venipuncture / Unknown 11/18/2023 4:44 AM EDT 11/18/2023 5:01 AM EDT Edy Lea DO LAB BLOOD ORDERAB LES LABORATORY [facility] [address] [place] [address] * (ABNORMAL) CBC (11/18/2023 4:44 AM EDT) WBC 7.47 4.00 - 10.80 K/uL 11/18/2023 5:19 AM EDT LABORATORY [facility] RBC 2.38 3.85 - 5.15 M/uL 11/18/2023 5:19 AM EDT LABORATORY [facility] HGB 7.4(L) 12.0 - 15.3 g/dL 11/18/2023 5:19 AM EDT LABORATORY [facility] HCT 21.8(L) 36.0 - 45.2 % 11/18/2023 5:19 AM EDT LABORATORY [facility] MCV 91.6 81.5 - 97.5 fL 11/18/2023 5:19 AM EDT LABORATORY [facility] MCH 31.1 27.0 - 34.0 pg 11/18/2023 5:19 AM EDT LABORATORY [facility] MCHC 33.9 32.0 - 36.0 g/dL 11/18/2023 5:19 AM EDT LABORATORY [facility] RDW 15.3 11.5 - 15.5 % 11/18/2023 5:19 AM EDT LABORATORY [facility] PLT 52(L) 140 - 400 K/uL 11/18/2023 5:19 AM EDT LABORATORY [facility] MPV 11.4 6.6 - 11.1 fL 11/18/2023 5:19 AM EDT LABORATORY [facility] nRBCs 0 <=0 /100 WBCs 11/18/2023 5:19 AM EDT LABORATORY [facility] Blood Venous blood specimen / Unknown Venipuncture / Unknown 11/18/2023 4:44 AM EDT 11/18/2023 5:01 AM EDT Edy Herbert Elonora DO LAB BLOOD ORDERAB LES Performing Organization Address City/[facility]/ZIP Co de Phone Number LABORATORY [address] [address] * MAGNESIUM (11/17/2023 5:40 AM EDT) Magnesium 2.4 1.5 - 2.6 mg/dL 11/17/2023 6:03 AM EDT LABORATORY [facility] Blood Venous blood specimen / Unknown Venipuncture / Unknown 11/17/2023 5:40 AM EDT 11/17/2023 5:43 AM EDT Edy Lea DO LAB BLOOD ORDERAB LES Performing Organization Address [facility] de Phone Number LABORATORY [address] [address] * PHOSPHORUS (11/17/2023 5:40 AM EDT) Phosphorus 3.6 2.5 - 4.8 mg/dL 11/17/2023 6:03 AM EDT LABORATORY [facility] Blood Venous blood specimen / Unknown Venipuncture / Unknown 11/17/2023 5:40 AM EDT 11/17/2023 5:43 AM EDT Edy Keon Leonora DO LAB BLOOD ORDERAB LES Performing Organization Address City/[facility] Co de Phone Number LABORATORY [address] [phone] * (ABNORMAL) BASIC METABOLIC PANEL (11/17/2023 5:40 AM EDT) BUN 29(H) 6 - 20 mg/dL 11/17/2023 6:03 AM EDT LABORATORY [facility] Creatinine 0.9 0.5 - 1.0 mg/dL 11/17/2023 6:03 AM EDT LABORATORY [facility] Estimated Glomerular Filtration Rate 63 >=60 mL/min 11/17/2023 6:03 AM EDT LABORATORY [facility] Comment:eGFR is calculated b ased on the CKD-EPI 2020 equation Sodium 130(L) 135 - 146 mmol/L 11/17/2023 6:03 AM EDT LABORATORY [facility] Potassium 5.0 3.5 - 5.1 mmol/L 11/17/2023 6:03 AM EDT LABORATORY [facility] Chloride 96(L) 98 - 107 mmol/L 11/17/2023 6:03 AM EDT LABORATORY [facility] CO2 21(L) 22 - 32 mmol/L 11/17/2023 6:03 AM EDT LABORATORY [facility] Anion Gap 13 7 - 15 mmol/L 11/17/2023 6:03 AM EDT LABORATORY [facility] Glucose 114 70 - 120 mg/dL 11/17/2023 6:03 AM EDT LABORATORY [facility] Calcium 8.1(L) 8.4 - 10.2 mg/dL 11/17/2023 6:03 AM EDT LABORATORY [facility] Blood Venous blood specimen / Unknown Venipuncture / Unknown 11/17/2023 5:40 AM EDT 11/17/2023 5:43 AM EDT EdySagence Leonora DO LAB BLOOD ORDERAB LES Performing Organization Address City/[facility] Co de Phone Number LABORATORY [address] [address] * EXTRA LAVENDER TOP (11/17/2023 5:37 AM EDT) Blood Venous blood specimen / Unknown Venipuncture / Unknown 11/17/2023 5:37 AM EDT 11/17/2023 5:44 AM EDT Edy Keon Leonora DO LAB BLOOD ORDERAB LES Performing Organization Address City/[facility]/ZIP Co de Phone Number LABORATORY [address] [address] * (ABNORMAL) CBC (11/16/2023 4:36 AM EDT) [facility] WBC 5.24 4.00 - 10.80 K/uL 11/16/2023 8:46 AM EDT LABORATORY [facility] RBC 2.73 3.85 - 5.15 M/uL 11/16/2023 8:46 AM EDT LABORATORY [facility] HGB 8.2(L) 12.0 - 15.3 g/dL 11/16/2023 8:46 AM EDT LABORATORY GL HCT 25.4(L) 36.0 - 45.2 % 11/16/2023 8:46 AM EDT LABORATORY [facility] MCV 93.0 81.5 - 97.5 fL 11/16/2023 8:46 AM EDT LABORATORY [facility] MCH 30.0 27.0 - 34.0 pg 11/16/2023 8:46 AM EDT LABORATORY [facility] MCHC 32.3 32.0 - 36.0 g/dL 11/16/2023 8:46 AM EDT LABORATORY [facility] RDW 14.7 11.5 - 15.5 % 11/16/2023 8:46 AM EDT LABORATORY [facility] PLT 57(L) 140 - 400 K/uL 11/16/2023 8:46 AM EDT LABORATORY [facility] MPV 11.9 6.6 - 11.1 fL 11/16/2023 8:46 AM EDT LABORATORY [facility] nRBCs 0 <=0 /100 WBCs 11/16/2023 8:46 AM EDT LABORATORY [facility] Blood Venous blood specimen / Unknown 11/16/2023 4:36 AM EDT 11/16/2023 4:44 AM EDT Rashida ARCHULETA LAB BLOOD OR DERABLES LABORATORY [facility] [address] [place] [address] * EXTRA LAVENDER TOP (11/16/2023 4:36 AM EDT) Blood Venous blood specimen / Unknown 11/16/2023 4:36 AM EDT 11/16/2023 4:44 AM EDT Edy Herbert Leonora DO LAB BLOOD ORDERAB LES Performing Organization Address City/[facility]/ZIP Co de Phone Number LABORATORY [address] [address] * MAGNESIUM (11/16/2023 4:36 AM EDT) Magnesium 2.4 1.5 - 2.6 mg/dL 11/16/2023 5:07 AM EDT LABORATORY GL Blood Venous blood specimen / Unknown Venipuncture / Unknown 11/16/2023 4:36 AM EDT 11/16/2023 4:41 AM EDT Edy Lea DO LAB BLOOD ORDERAB LES Performing Organization Address [facility] de Phone Number LABORATORY [address] [address] * PHOSPHORUS (11/16/2023 4:36 AM EDT) Phosphorus 3.0 2.5 - 4.8 mg/dL 11/16/2023 5:07 AM EDT LABORATORY [facility] Blood Venous blood specimen / Unknown Venipuncture / Unknown 11/16/2023 4:36 AM EDT 11/16/2023 4:41 AM EDT Edy Lea DO LAB BLOOD ORDERAB LES Performing Organization Address [facility] Co de Phone Number LABORATORY [address] [address] * (ABNORMAL) BASIC METABOLIC PANEL (11/16/2023 4:36 AM EDT) BUN 22(H) 6 - 20 mg/dL 11/16/2023 5:07 AM EDT LABORATORY [facility] Creatinine 0.8 0.5 - 1.0 mg/dL 11/16/2023 5:07 AM EDT LABORATORY GL Estimated Glomerular Filtration Rate 73 >=60 mL/min 11/16/2023 5:07 AM EDT LABORATORY GL Comment:eGFR is calculated b ased on the CKD-EPI 2020 equation Sodium 131(L) 135 - 146 mmol/L 11/16/2023 5:07 AM EDT LABORATORY [facility] Potassium 4.8 3.5 - 5.1 mmol/L 11/16/2023 5:07 AM EDT LABORATORY [facility] Chloride 101 98 - 107 mmol/L 11/16/2023 5:07 AM EDT LABORATORY [facility] CO2 22 22 - 32 mmol/L 11/16/2023 5:07 AM EDT LABORATORY [facility] Anion Gap 8 7 - 15 mmol/L 11/16/2023 5:07 AM EDT LABORATORY [facility] Glucose 152(H) 70 - 120 mg/dL 11/16/2023 5:07 AM EDT LABORATORY [facility] Calcium 8.2(L) 8.4 - 10.2 mg/dL 11/16/2023 5:07 AM EDT LABORATORY [facility] Blood Venous blood specimen / Unknown Venipuncture / Unknown 11/16/2023 4:36 AM EDT 11/16/2023 4:41 AM EDT Edy Lea DO LAB BLOOD ORDERAB LES LABORATORY [facility] [address] [place] [address] * US ENDOSCOPIC (11/15/2023 3:47 PM EDT) Narrative Scheduling, Silent - 11/15/2023 3:47 PM EDT This is an imaging study not interpreted or resulted by a [facility] or [facility] contracted radiologist. Baljit Fernando MD RAD ULTRASOUND * UPPER ENDOSCOPIC U/S (11/15/2023 2:12 PM EDT) 11/15/2023 2:12 PM EDT Narrative Procedure Note Edy Lea DO - 11/15/2023 2:12 PM EDT [facility] Patient Name: Ally Luna Procedure Date: 11/15/2023 2:12 PM Date of : 1940 Admit Type: Outpatient Note Status:Finalized Date of : 1940 Admit Type: Outpatient Age: 83 Room: OR 2 Gender: Female Note Status: Finalized Procedure: Upper EUS Indications: For cyst enterostomy, For stent placement Providers: Baljit Fernando MD (Doctor), Herbert Oviedo RN Referring MD: Edy Lea MD Medicines: General Anesthesia Complications: No immediate complications. Procedure: Pre-Anesthesia Assessment: - Prior to the procedure, a History and Physicalwas performed, and patient medications, allergies and sensitivities werereviewed. The patient's tolerance of previous anesthesia was reviewed. - The alternatives, risks and benefits of theprocedure were discussed at length with the patient's son. The patient's proxy verbalizedunderstanding of the risks as well as the alternatives and wished to proceed with theprocedure. - Patient identification and proposed procedurewere verified prior to the procedure by the physician and the nurse. The procedure wasverified in the procedure room. - Pre-procedure physical examination revealed nocontraindications to sedation. After obtaining informed consent, the endoscope waspassed under direct vision. All instruments were visually inspected immediatelybefore and after removal from the patient to ensure they are fully intact. Throughoutthe procedure, the patient's blood pressure, pulse, and oxygen saturations weremonitored continuously. The Endosonoscope was introduced through the mouth, andadvanced to the second part of duodenum. The upper EUS was accomplished withoutdifficulty. The patient tolerated the procedure well. Findings & Specimens: ENDOSCOPIC FINDING: : The examined esophagus was normal. The entire examined stomach was normal. The duodenal bulb and second portion of the duodenum were normal. ENDOSONOGRAPHIC FINDING: : The endosonographic exam of the common bile duct showed diffusedthickening around the duct likely related to pancreatitis. The maximum diameter of the duct was 6 mm. Evidence of a previous cholecystectomy was identifiedendosonographically. There was no sign of significant endosonographic abnormality in thevisualized portion of the liver. Homogeneous parenchyma was identified. Pancreatic parenchymal abnormalities were noted in the entirepancreas. These consisted of diffuse echogenicity. An anechoic lesion suggestive of a pseudocyst was identified in thepancreatic tail. The lesion measured 90 mm by 100 mm in maximal cross-sectional diameter. Therewas a single compartment without septae. The outer wall of the lesion was thick. There was noassociated mass. There was internal debris within the fluid-filled cavity. The decision was made to create acystogastrostomy using the AXIOS stent system. Once an appropriate position in the stomach wasidentified, the common wall between the stomach and the cyst was interrogated utilizing color Doppler imagingto identify interposed vessels. The stomach wall and the cyst were punctured under endosonographicguidance. A wire was inserted into the cyst under fluoroscopic guidance. The AXIOS stent andelectrocautery device was introduced through the working channel and advanced over the guidewire. Current wasapplied to the cautery tip and then used to increase the diameter of the stoma. The AXIOS device wasadvanced into the cyst, and a 20 x 10 mm AXIOS stent was placed with the flanges in close approximation tothe figueroa of the cyst and the stomach through the cystogastrostomy. The stent was successfullyplaced. A TTS dilator was passed through the scope. Dilation with a 12-13.5-15 mm balloon dilator wasperformed to 15 mm. A 10 Fr x 5 cm double pigtail plastic stent was placed. A small amount of fluid, visualized as an anechoic feature, was foundin the peritoneal cavity. Impression: - A large pseudocyst/WON was seen in the pancreatictail treated by a 20 mm Axios stent Cystogastrostomy. - Ascites was found on endosonographic examinationof the peritoneal cavity. Recommendation: - [facility] - Perform CT scan (computed tomography) of theabdomen with contrast in 3 weeks to assure resolution of the fluid collection. - Perform an upper GI endoscopy in 4 weeks toremove the Axios stent. - May resume Eliquis/Plavix after 5 days howevershe is at very high risk for bleeding. - PO ABx for 5 days. - Continue PPI. - Diuretics. Baljit Fernando MD 11/15/2023 4:03:02 PM This report has been signed electronically. Estimated Blood Loss: Estimated blood loss: none. Edy Lea DO GASTRO UPPER * (ABNORMAL) DIFFERENTIAL, AUTOMATED (11/15/2023 4:36 AM EDT) WBC 5.46 4.00 - 10.80 K/uL 11/15/2023 9:02 AM EDT LAB[facility] Neutrophils % 77.7(H) 40.0 - 75.0 % 11/15/2023 9:02 AM EDT [facility] Lymphocytes % 8.4(L) 18.0 - 42.0 % 11/15/2023 9:02 AM EDT [facility] Monocytes % 10.3 1.0 - 11.0 % 11/15/2023 9:02 AM EDT LABORATORY [facility] Eosinophils % 2.7 0.0 - 6.0 % 11/15/2023 9:02 AM EDT [facility] Basophils % 0.4 0.0 - 2.0 % 11/15/2023 9:02 AM EDT [facility] Immature Granulocytes % 0.5 0.0 - 2.0 % 11/15/2023 9:02 AM EDT [facility] Absolute Neutrophils 4.24 1.80 - 7.70 K/uL 11/15/2023 9:02 AM EDT [facility] Absolute Lymphocytes 0.46(L) 1.00 - 4.80 K/ul 11/15/2023 9:02 AM EDT [facility] Absolute Monocytes 0.56 0.00 - 1.10 K/uL 11/15/2023 9:02 AM EDT [facility] Absolute Eosinophils 0.15 0.00 - 0.70 K/uL 11/15/2023 9:02 AM EDT [facility] Absolute Basophils 0.02 0.00 - 0.20 K/uL 11/15/2023 9:02 AM EDT [facility] Absolute Immature Granulocytes 0.03 0.00 - 0.20 K/uL 11/15/2023 9:02 AM EDT [facility] Blood Venous blood specimen / Unknown 11/15/2023 4:36 AM EDT 11/15/2023 4:43 AM EDT Tosha Fontaine PA-C LAB BLOOD ORDER [facility] [address] [id number] * (ABNORMAL) CBC (11/15/2023 4:36 AM EDT) [facility] WBC 5.46 4.00 - 10.80 K/uL 11/15/2023 9:02 AM EDT [facility] RBC 2.62 3.85 - 5.15 M/uL 11/15/2023 9:02 AM EDT [facility] HGB 7.9(L) 12.0 - 15.3 g/dL 11/15/2023 9:02 AM EDT [facility] HCT 24.2(L) 36.0 - 45.2 % 11/15/2023 9:02 AM EDT [facility] MCV 92.4 81.5 - 97.5 fL 11/15/2023 9:02 AM EDT [facility] MCH 30.2 27.0 - 34.0 pg 11/15/2023 9:02 AM EDT [facility] MCHC 32.6 32.0 - 36.0 g/dL 11/15/2023 9:02 AM EDT [facility] RDW 14.7 11.5 - 15.5 % 11/15/2023 9:02 AM EDT [facility] PLT 52(L) 140 - 400 K/uL 11/15/2023 9:02 AM EDT [facility] MPV 11.7 6.6 - 11.1 fL 11/15/2023 9:02 AM EDT [facility] nRBCs 0 <=0 /100 WBCs 11/15/2023 9:02 AM EDT [facility] Blood Venous blood specimen / Unknown 11/15/2023 4:36 AM EDT 11/15/2023 4:43 AM EDT Tosha Fontaine PA-C LAB BLOOD ORDER [facility] [address] [id number] * EXTRA LAVENDER TOP (11/15/2023 4:36 AM EDT) Blood Venous blood specimen / Unknown 11/15/2023 4:36 AM EDT 11/15/2023 4:43 AM EDT Edy Lea DO LAB BLOOD ORDERAB LES Performing Organization Address [facility] Co de Phone Number LABORATORY [address] [address] * MAGNESIUM (11/15/2023 4:36 AM EDT) Magnesium 2.3 1.5 - 2.6 mg/dL 11/15/2023 5:01 AM EDT [facility] Blood Venous blood specimen / Unknown Venipuncture / Unknown 11/15/2023 4:36 AM EDT 11/15/2023 4:42 AM EDT Edy Lea DO LAB BLOOD ORDERAB LES Performing Organization Address [facility] de Phone Number LABORATORY [address] [address] * PHOSPHORUS (11/15/2023 4:36 AM EDT) Phosphorus 2.7 2.5 - 4.8 mg/dL 11/15/2023 5:01 AM EDT [facility] Blood Venous blood specimen / Unknown Venipuncture / Unknown 11/15/2023 4:36 AM EDT 11/15/2023 4:42 AM EDT Edy Lea DO LAB BLOOD ORDERAB LES Performing Organization Address [facility] de Phone Number LABORATORY [address] [id number] * (ABNORMAL) BASIC METABOLIC PANEL (11/15/2023 4:36 AM EDT) BUN 23(H) 6 - 20 mg/dL 11/15/2023 5:01 AM EDT [facility] Creatinine 0.9 0.5 - 1.0 mg/dL 11/15/2023 5:01 AM EDT [facility] Estimated Glomerular Filtration Rate 65 >=60 mL/min 11/15/2023 5:01 AM EDT [facility] Comment:eGFR is calculated b ased on the CKD-EPI 2020 equation Sodium 135 135 - 146 mmol/L 11/15/2023 5:01 AM EDT [facility] Potassium 4.2 3.5 - 5.1 mmol/L 11/15/2023 5:01 AM EDT [facility] Chloride 102 98 - 107 mmol/L 11/15/2023 5:01 AM EDT [facility] CO2 25 22 - 32 mmol/L 11/15/2023 5:01 AM EDT [facility] Anion Gap 8 7 - 15 mmol/L 11/15/2023 5:01 AM EDT [facility] Glucose 122(H) 70 - 120 mg/dL 11/15/2023 5:01 AM EDT [facility] Calcium 8.1(L) 8.4 - 10.2 mg/dL 11/15/2023 5:01 AM EDT [facility] Blood Venous blood specimen / Unknown Venipuncture / Unknown 11/15/2023 4:36 AM EDT 11/15/2023 4:42 AM EDT [facility] Keon Leonora DO LAB BLOOD ORDERAB LES LABORATORY [address] [address] * CALCIUM, IONIZED (11/15/2023 4:36 AM EDT) [facility] Calcium, Ionized 1.16 1.13 - 1.32 mmol/L 11/15/2023 5:33 AM EDT LABORATORY [facility] Comment:This test was develo ped and its performance characteristics dtermined by [employer]. It has not been cleared or approved by the [place] Food and Drug Administration Blood Venous blood specimen / Unknown Venipuncture / Unknown 11/15/2023 4:36 AM EDT 11/15/2023 4:42 AM EDT Edy WeDidIt DO LAB BLOOD ORDERAB LES LABORATORY [address] [address] * PHOSPHORUS (11/14/2023 5:30 AM EDT) Pathologist [facility] [place] Phosphorus 2.6 2.5 - 4.8 mg/dL 11/14/2023 6:17 AM EDT [facility] Blood Venous blood specimen / Unknown Venipuncture / Unknown 11/14/2023 5:30 AM EDT 11/14/2023 5:46 AM EDT Marilynn ARCHULETA LAB BLOOD ORDERAB LES LABORATORY [address] [address] * MAGNESIUM (11/14/2023 5:30 AM EDT) Pathologist [facility] [place] Magnesium 2.2 1.5 - 2.6 mg/dL 11/14/2023 6:17 AM EDT [facility] Blood Venous blood specimen / Unknown Venipuncture / Unknown 11/14/2023 5:30 AM EDT 11/14/2023 5:46 AM EDT Marilynn ARCHULETA LAB BLOOD ORDERAB LES Performing Organization Address City/[facility]/ZIP Co de Phone Number LABORATORY [address] [phone] * (ABNORMAL) CBC (11/14/2023 5:30 AM EDT) Pathologist [facility] [place] WBC 5.87 4.00 - 10.80 K/uL 11/14/2023 6:00 AM EDT [facility] RBC 2.68 3.85 - 5.15 M/uL 11/14/2023 6:00 AM EDT [facility] HGB 8.1(L) 12.0 - 15.3 g/dL 11/14/2023 6:00 AM EDT [facility] HCT 25.0(L) 36.0 - 45.2 % 11/14/2023 6:00 AM EDT LABORATORY [facility] MCV 93.3 81.5 - 97.5 fL 11/14/2023 6:00 AM EDT [facility] MCH 30.2 27.0 - 34.0 pg 11/14/2023 6:00 AM EDT [facility] MCHC 32.4 32.0 - 36.0 g/dL 11/14/2023 6:00 AM EDT LABORATORY [facility] RDW 14.8 11.5 - 15.5 % 11/14/2023 6:00 AM EDT LABORATORY [facility] PLT 54(L) 140 - 400 K/uL 11/14/2023 6:00 AM EDT LABORATORY [facility] MPV 11.6 6.6 - 11.1 fL 11/14/2023 6:00 AM EDT LABORATORY [facility] nRBCs 0 <=0 /100 WBCs 11/14/2023 6:00 AM EDT [facility] Blood Venous blood specimen / Unknown Venipuncture / Unknown 11/14/2023 5:30 AM EDT 11/14/2023 5:46 AM EDT Marilynn ARCHULETA LAB BLOOD ORDERAB LES [facility] [address] [place] [address] * (ABNORMAL) COMPREHENSIVE METABOLIC PANEL (11/14/2023 5:30 AM EDT) BUN 26(H) 6 - 20 mg/dL 11/14/2023 6:17 AM EDT LABORATORY [facility] Creatinine 0.9 0.5 - 1.0 mg/dL 11/14/2023 6:17 AM EDT LAB[facility]ORY [facility] Estimated Glomerular Filtration Rate 62 >=60 mL/min 11/14/2023 6:17 AM EDT [facility] Comment:eGFR is calculated b ased on the CKD-EPI 2020 equation Sodium 136 135 - 146 mmol/L 11/14/2023 6:17 AM EDT [facility] Potassium 4.0 3.5 - 5.1 mmol/L 11/14/2023 6:17 AM EDT [facility] Chloride 103 98 - 107 mmol/L 11/14/2023 6:17 AM EDT [facility] CO2 21(L) 22 - 32 mmol/L 11/14/2023 6:17 AM EDT [facility] Anion Gap 12 7 - 15 mmol/L 11/14/2023 6:17 AM EDT [facility] Glucose 106 70 - 120 mg/dL 11/14/2023 6:17 AM EDT [facility] Albumin 2.8(L) 3.8 - 5.0 g/dL 11/14/2023 6:17 AM EDT [facility] AST 17 10 - 35 U/L 11/14/2023 6:17 AM EDT [facility] Alkaline Phosphatase 68 35 - 130 U/L 11/14/2023 6:17 AM EDT [facility] Bilirubin, Total 0.5 <=1.2 mg/dL 11/14/2023 6:17 AM EDT [facility] Calcium 7.6(L) 8.4 - 10.2 mg/dL 11/14/2023 6:17 AM EDT [facility] Protein 5.0(L) 6.0 - 8.3 g/dL 11/14/2023 6:17 AM EDT [facility] ALT 11 10 - 35 U/L 11/14/2023 6:17 AM EDT [facility] Blood Venous blood specimen / Unknown Venipuncture / Unknown 11/14/2023 5:30 AM EDT 11/14/2023 5:46 AM EDT Marilynn ARCHULETA LAB BLOOD ORDERAB LES [facility] [address] [place] [address] * EKG (11/13/2023 3:54 PM EDT) 11/13/2023 3:54 PM EDT Narrative Procedure Note Perry Verde DO - 11/13/2023 3:54 PM EDT REASON FOR STUDY: Chest pain CONCLUSIONS: Atrial sense ventricular paced rhythm with prolonged AV conduction Abnormal ECG When compared with ECG of 15-Jul-2020 08:11, Electronic pacemaker has replaced sinus rhythm Ventricular Rate: 81 Atrial Rate: 81 SC Interval: 266 QRS Duration: 156 QT/QTc: 448/520 ms P-R-T Holland: 27 : 45 : 147 degrees Marilynn Alvarado [employer]ER EKG [facility] * XR CHEST 1 VIEW (11/13/2023 3:08 PM EDT) Anatomical Region Laterality Modality Chest Digital Radiogra phy 11/13/2023 2:47 PM EDT Impressions 11/13/2023 3:35 PM EDT IMPRESSION: Atelectasis and chronic appearing changes of the lung parenchyma. THIS DOCUMENT HAS BEEN ELECTRONICALLY SIGNED BY TI WEAVER MD Narrative 11/13/2023 3:35 PM EDT PROCEDURE INFORMATION: Exam: XR Chest Exam date and time: 11/13/2023 2:47 PM Age: 83 years old Clinical indication: Other: Admission; Pre-op; Additional info: Here for ercp TECHNIQUE: Imaging protocol: Radiologic exam of the chest. Views: 1 view. COMPARISON: DX (CXR AP X-CRAIG GRID, CHEST, CXR AP GRID Crosswise) 07/14/2020 5:28 AM FINDINGS: Tubes, catheters and devices: A pacemaker device is present, and its leads are in appropriate position. Lungs: Low lung volumes with atelectatic changes. Chronic changes of the lung parenchyma. Pleural spaces: Unremarkable. No pleural effusion. No pneumothorax. Heart/Mediastinum: TAVR Bones/joints: There are moderate degenerative changes present. Procedure Note Ti Weaver MD - 11/13/2023 PROCEDURE INFORMATION: Exam: XR Chest Exam date and time: 11/13/2023 2:47 PM Age: 83 years old Clinical indication: Other: Admission; Pre-op; Additional info: Here forercp TECHNIQUE: Imaging protocol: Radiologic exam of the chest. Views: 1 view. COMPARISON: DX (CXR AP X-CRAIG GRID, CHEST, CXR AP GRID Crosswise) 07/14/2020 5:28 AM FINDINGS: Tubes, catheters and devices: A pacemaker device is present, and its leadsare in appropriate position. Lungs: Low lung volumes with atelectatic changes. Chronic changes of thelung parenchyma. Pleural spaces: Unremarkable. No pleural effusion. No pneumothorax. Heart/Mediastinum: TAVR Bones/joints: There are moderate degenerative changes present. IMPRESSION IMPRESSION: Atelectasis and chronic appearing changes of the lung parenchyma. THIS DOCUMENT HAS BEEN ELECTRONICALLY SIGNED BY TI WEAVER MD Marilynn ARCHULETA RADIOLOGY (RAD GE NERAL) * (ABNORMAL) PT INR (11/13/2023 3:02 PM EDT) Prothrombin Time 20.3(H) 11.6 - 15.2 seconds 11/13/2023 3:31 PM EDT LAB[facility]ORY [facility] INR 1.7(H) 0.8 - 1.2 11/13/2023 3:31 PM EDT LABORATORY [facility] Blood Venous blood specimen / Unknown Venipuncture / Unknown 11/13/2023 3:02 PM EDT 11/13/2023 3:06 PM EDT Narrative LAB[facility]ATORY [facility] - 11/13/2023 3:31 PM EDT Warfarin Therapy INR: 2.0-3.0 conventional anticoagulation INR: 2.5-3.5 high intensity anticoagulation Marilynn ARCHULETA LAB BLOOD ORDERAB LES Performing Organization Address [facility]/ZIP Co de Phone Number LAB[facility]ATORY [facility] [address] [place] [address] * APTT (11/13/2023 3:02 PM EDT) aPTT 31 21 - 38 seconds 11/13/2023 3:32 PM EDT LABORATORY GL Blood Venous blood specimen / Unknown Venipuncture / Unknown 11/13/2023 3:02 PM EDT 11/13/2023 3:06 PM EDT Narrative LAB[facility]ATORY [facility] - 11/13/2023 3:32 PM EDT Anticoagulation may affect testing. Refer to [employer] Test Catalog for a list of effects. Marilynn ARCHULETA LAB BLOOD ORDERAB LES LAB[facility] [address], [place] [id number] * PHOSPHORUS (11/13/2023 3:02 PM EDT) Phosphorus 2.5 2.5 - 4.8 mg/dL 11/13/2023 3:29 PM EDT LABORATORY [facility] Blood Venous blood specimen / Unknown Venipuncture / Unknown 11/13/2023 3:02 PM EDT 11/13/2023 3:06 PM EDT Marilynn ARCHULETA LAB BLOOD ORDERAB LES [facility] [address], [place] [id number] * MAGNESIUM (11/13/2023 3:02 PM EDT) Magnesium 2.0 1.5 - 2.6 mg/dL 11/13/2023 3:29 PM EDT LABORATORY GL Blood Venous blood specimen / Unknown Venipuncture / Unknown 11/13/2023 3:02 PM EDT 11/13/2023 3:06 PM EDT Marilynn ARCHULETA LAB BLOOD ORDERAB LES Performing Organization Address City/[facility]/ZIP Co de Phone Number LABORATORY [address] [address] * (ABNORMAL) COMPREHENSIVE METABOLIC PANEL (11/13/2023 3:02 PM EDT) BUN 29(H) 6 - 20 mg/dL 11/13/2023 3:29 PM EDT [facility] Creatinine 0.9 0.5 - 1.0 mg/dL 11/13/2023 3:29 PM EDT [facility] Estimated Glomerular Filtration Rate 63 >=60 mL/min 11/13/2023 3:29 PM EDT [facility] Comment:eGFR is calculated b ased on the CKD-EPI 2020 equation Sodium 134(L) 135 - 146 mmol/L 11/13/2023 3:29 PM EDT [facility] Potassium 3.9 3.5 - 5.1 mmol/L 11/13/2023 3:29 PM EDT [facility] Chloride 100 98 - 107 mmol/L 11/13/2023 3:29 PM EDT [facility] CO2 23 22 - 32 mmol/L 11/13/2023 3:29 PM EDT [facility] Anion Gap 11 7 - 15 mmol/L 11/13/2023 3:29 PM EDT [facility] Glucose 116 70 - 120 mg/dL 11/13/2023 3:29 PM EDT [facility] Albumin 3.2(L) 3.8 - 5.0 g/dL 11/13/2023 3:29 PM EDT [facility] AST 24 10 - 35 U/L 11/13/2023 3:29 PM EDT [facility] Alkaline Phosphatase 75 35 - 130 U/L 11/13/2023 3:29 PM EDT [facility] Bilirubin, Total 0.5 <=1.2 mg/dL 11/13/2023 3:29 PM EDT [facility] Calcium 8.2(L) 8.4 - 10.2 mg/dL 11/13/2023 3:29 PM EDT [facility] Protein 6.0 6.0 - 8.3 g/dL 11/13/2023 3:29 PM EDT [facility] ALT 12 10 - 35 U/L 11/13/2023 3:29 PM EDT [facility] Blood Venous blood specimen / Unknown Venipuncture / Unknown 11/13/2023 3:02 PM EDT 11/13/2023 3:06 PM EDT Marilynn ARCHULETA LAB BLOOD ORDERAB LES LABORATORY [address] [address] * (ABNORMAL) CBC (11/13/2023 3:02 PM EDT) WBC 8.07 4.00 - 10.80 K/uL 11/13/2023 3:30 PM EDT LAB[facility] RBC 3.19 3.85 - 5.15 M/uL 11/13/2023 3:30 PM EDT LAB[facility] HGB 9.5(L) 12.0 - 15.3 g/dL 11/13/2023 3:30 PM EDT LAB[facility] HCT 29.2(L) 36.0 - 45.2 % 11/13/2023 3:30 PM EDT LABORATORY GL MCV 91.5 81.5 - 97.5 fL 11/13/2023 3:30 PM EDT LAB[facility] MCH 29.8 27.0 - 34.0 pg 11/13/2023 3:30 PM EDT LABORATORY GL MCHC 32.5 32.0 - 36.0 g/dL 11/13/2023 3:30 PM EDT LABORATORY GL RDW 14.5 11.5 - 15.5 % 11/13/2023 3:30 PM EDT LABORATORY GL PLT 73(L) 140 - 400 K/uL 11/13/2023 3:30 PM EDT LABORATORY GL MPV 11.2 6.6 - 11.1 fL 11/13/2023 3:30 PM EDT LABORATORY GL nRBCs 0 <=0 /100 WBCs 11/13/2023 3:30 PM EDT LABORATORY GL Blood Venous blood specimen / Unknown Venipuncture / Unknown 11/13/2023 3:02 PM EDT 11/13/2023 3:06 PM EDT Marilynn ARCHULETA LAB BLOOD ORDERAB LES Performing Organization Address City/State/[facility] Co de Phone Number LABORATORY [facility] [address] [place] [address] documented in this encounter Visit Diagnoses Diagnosis Pseudocyst of pancreas- Primary Cyst and pseudocyst of pancreas Acute pancreatitis Chest pain Chest pain, unspecified Other specified diseases of pancreas Other diseases of stomach and duodenum Other specified conditions associated with female genital organs and menstrual cycle Melena Blood in stool Other ascites HTN (hypertension) Unspecified essential hypertension Acute pancreatitis UTI (urinary tract infection) Urinary tract infection, site not specified 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, late effect of cerebrovascular disease Weight loss Loss of weight Malnutrition of moderate degree (HCC) Malnutrition of moderate degree Chronic idiopathic thrombocytopenia (HCC) Immune thrombocytopenic purpura Sjogren's syndrome (HCC) Sicca syndrome Dilutional hyponatremia Other disorders of neurohypophysis Anemia associated with nutritional deficiency Unspecified deficiency anemia CHRIS (acute kidney injury) (HCC) Acute kidney failure, unspecified Gastrointestinal hemorrhage Hemorrhage of gastrointestinal tract, unspecified 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 Given 11/20/2023 9:15 PM EDT 650 mg Adult PPN Peripheral 2,000 mL, Intravenous, [id number], Starting on Sun11/14/23 at 1800, Until Ewelina 11/15/23 at 1759, For 24 hours, Infuse using a 1.2 micron in-line filter Restarted 11/15/2023 4:37 AM EDT 83 mL/hr Rate Verify 11/14/2023 6:55 PM EDT 83 mL/hr New Bag 11/14/2023 6:24 PM EDT 83 mL/hr Adult PPN Peripheral 2,000 mL, Intravenous, [id number], Starting on Sun11/15/23 at 1800, Until Sun11/16/23 at 1759, For 24 hours, Infuse using a 1.2 micron in-line filter New Bag 11/15/2023 6:10 PM EDT 83 mL/hr Adult PPN Peripheral 2,000 mL, Intravenous, [id number], Starting on Sun11/16/23 at 1800, Until 11/17/23 at 1759, For 24 hours, Infuse using a 1.2 micron in-line filter Rate Verify 11/17/2023 10:28 AM EDT 83 mL/hr Rate Verify 11/17/2023 6:13 AM EDT 83 mL/hr Restarted 11/17/2023 5:42 AM EDT 83 mL/hr Adult PPN Peripheral 2,000 mL, Intravenous, [id number], Starting on 11/17/23 at 1800, Until 11/18/23 at 1759, For 24 hours, Infuse using a 1.2 micron in-line filter Rate Verify 11/18/2023 5:49 PM EDT 83 mL/hr Rate Verify 11/18/2023 2:41 PM EDT 83 mL/hr Restarted 11/18/2023 12:58 PM EDT 83 mL/hr Adult PPN Peripheral 2,000 mL, Intravenous, [id number], Starting on Sun11/18/23 at 1800, Until Sun11/19/23 at 1010, For 24 hours, Infuse using a 1.2 micron in-line filter Rate Verify 11/19/2023 8:55 AM EDT 83 mL/hr Restarted 11/19/2023 7:49 AM EDT 83 mL/hr Restarted 11/19/2023 4:14 AM EDT 83 mL/hr albuterol-ipratropium (Duoneb) inhalation solution 3 mL 3 mL, Nebulizer, ONCE, On Sun11/15/23 at 1530, For 1 dose, 3 mL = 0.5 mg ipratropium/ 2.5 mg albuterol, Pre-Op Given 11/15/2023 3:03 PM EDT 3 mL Apixaban (Eliquis) tab 5 mg 5 mg, Oral, BID (.AM/PM), First dose on Sun11/20/23 at 0900, Until Discontinued Given 11/20/2023 9:16 PM EDT 5 mg Given 11/20/2023 9:32 AM EDT 5 mg atorvaSTATin (Lipitor) tab 40 mg 40 mg, Oral, HS, First dose on Sun11/13/23 at 2200, Until Discontinued Given 11/23/2023 10:11 PM EDT 40 mg Given 11/22/2023 10:05 PM EDT 40 mg Given 11/21/2023 9:34 PM EDT 40 mg Benzonatate (Tessalon Perles) cap 100 mg 100 mg, Oral, BID PRN Cough, Starting on Sun11/13/23 at 1522, Until 11/24/23 at 1859, This med should NOT be Crushed or Chewed Given 11/15/2023 1:27 AM EDT 100 mg busPIRone (Buspar) tab 5 mg 5 mg, Oral, BID (.AM/PM), First dose on Sun11/13/23 at 2100, Until Discontinued Given 11/24/2023 9:42 AM EDT 5 mg Given 11/23/2023 10:11 PM EDT 5 mg Given 11/23/2023 9:05 AM EDT 5 mg Carvedilol (Coreg) tab 12.5 mg 12.5 mg, Oral, BID (.AM/PM), First dose (after last modification) on Sun11/22/23 at 0900, Until Discontinued, Hold for HR less than 60 or SBP below 100 and notify service if dose is held MUST BE GIVEN WITH MEAL, Indications: SBP > 145 mm Hg Given 11/24/2023 9:42 AM EDT 12.5 mg Given 11/23/2023 10:11 PM EDT 12.5 mg Given 11/23/2023 9:05 AM EDT 12.5 mg Carvedilol (Coreg) tab 25 mg 25 mg, Oral, BID (.AM/PM), First dose on Sun11/13/23 at 2100, Until Discontinued, Hold for HR less than 60 or SBP below 100 and notify service if dose is held MUST BE GIVEN WITH MEAL, Indications: SBP > 145 mm Hg Given 11/21/2023 9:25 AM EDT 25 mg Given 11/20/2023 9:27 PM EDT 25 mg Given 11/19/2023 9:13 AM EDT 25 mg ciprofloxacin (Cipro) tab 500 mg 500 mg, Oral, Q12H, First dose on Sun11/16/23 at 0900, Last dose on Sun11/20/23 at 2100, For 5 days, Hold antacids and iron for 3-4 hours before and after administration. Given 11/20/2023 9:17 PM EDT 500 mg Given 11/20/2023 9:32 AM EDT 500 mg Given 11/19/2023 9:08 PM EDT 500 mg clopidogrel (pLAVix) tab 75 mg 75 mg, Oral, Daily(AM), First dose on Sun11/20/23 at 0900, Until Discontinued Given 11/20/2023 9:31 AM EDT 75 mg Ferrous Sulfate (Feosol) tab 325 mg 325 mg, Oral, DAILY NOON, First dose on Sun11/14/23 at 1200, Until Discontinued, This med should NOT be Crushed or Chewed Given 11/24/2023 11:32 AM EDT 325 mg Given 11/23/2023 11:46 AM EDT 325 mg Given 11/21/2023 11:30 AM EDT 325 mg Fluticasone (Flovent HFA) 220 MCG/ACT inhaler 2 Puff 2 Puff, Inhalation, [id number], First dose on Sun11/13/23 at 1900, Until Discontinued, 220 mcg / Actuation. Rinse mouth w/ water and spit after each use WASTE INFO: Return waste medication to pharmacy in zip lock bag - SP container. Given 11/24/2023 7:32 AM EDT 2 Puffs Given 11/23/2023 7:16 PM EDT 2 Puffs Given 11/23/2023 7:37 AM EDT 2 Puffs Furosemide (Lasix) inj 40 mg 40 mg, IV Push, ONCE, On Sun11/18/23 at 1115, For 1 dose Given 11/18/2023 11:10 AM EDT 40 mg Furosemide (Lasix) inj 40 mg 40 mg, IV Push, ONCE, On Sun11/19/23 at 1045, For 1 dose Given 11/19/2023 10:35 AM EDT 40 mg Furosemide (Lasix) tab 40 mg 40 mg, Oral, Daily(AM), First dose on Sun11/16/23 at 0900, Until Discontinued Given 11/19/2023 9:12 AM EDT 40 mg Given 11/18/2023 8:01 AM EDT 40 mg Given 11/17/2023 8:09 AM EDT 40 mg Furosemide (Lasix) tab 40 mg 40 mg, Oral, Daily(AM), First dose (after last modification) on Sun11/20/23 at 0900, Until Discontinued Given 11/20/2023 9:31 AM EDT 40 mg HYDROmorphone (Dilaudid) inj 0.5 mg 0.5 mg, IV Push, Q4H PRN Pain, Moderate, Starting on Sun11/13/23 at 1545, Until 11/17/23 at 1243 Given 11/16/2023 11:35 PM EDT 0.5 mg HYDROmorphone (Dilaudid) tab 2 mg 2 mg, Oral, Q4H PRN Pain, Severe, Pain, Moderate, Starting on Sun11/17/23 at 1242, Until Sun11/24/23 at 1859 Given 11/18/2023 11:38 PM EDT 2 mg isolyte-S pH 7.4 infusion Intravenous, at 100 mL/hr, Plasma-LYTE 148, isolyte-S, and isolyte-S pH 7.4 are considered equivalent - including for MAR barcode scanning., CONTINUOUS, Starting on Sun11/13/23 at 1615, Until Sun11/14/23 at 1253 New Bag 11/14/2023 11:32 AM EDT 100 mL/hr New Bag 11/14/2023 1:24 AM EDT 100 mL/hr Rate Verify 11/13/2023 6:22 PM EDT 100 mL/hr isolyte-S pH 7.4 infusion Intravenous, at 50 mL/hr, Plasma-LYTE 148, isolyte-S, and isolyte-S pH 7.4 are considered equivalent - including for MAR barcode scanning., CONTINUOUS, Starting on Sun11/14/23 at 1330, Until 11/17/23 at 1243 Rate Verify 11/17/2023 10:28 AM EDT 50 mL /hr New Bag 11/17/2023 8:08 AM EDT 50 mL/hr Rate Verify 11/17/2023 6:13 AM EDT 50 mL/hr levothyroxine (Levoxyl) tab 100 mcg 100 mcg, Oral, [id number], First dose on Sun11/14/23 at 0630, Until Discontinued Given 11/24/2023 6:37 AM EDT 100 mcg Given 11/23/2023 6:36 AM EDT 100 mcg Given 11/22/2023 5:49 AM EDT 100 mcg LiquaCel 30 mL, Oral, BID (.AM/PM), First dose on Sun11/19/23 at 1045, Until Discontinued Given 11/24/2023 9:42 AM EDT 30 mL Given 11/23/2023 10:11 PM EDT 30 mL Given 11/23/2023 9:05 AM EDT 30 mL LORAzepam (Ativan) tab 0.5 mg 0.5 mg, Oral, Q12H PRN Anxiety, Starting on Sun11/13/23 at 1521, Until 11/24/23 at 1859 Given 11/23/2023 10:11 PM EDT 0.5 mg Given 11/23/2023 1:48 AM EDT 0.5 mg Given 11/22/2023 1:48 AM EDT 0.5 mg LORAzepam (Ativan) tab 0.5 mg 0.5 mg, Oral, ONCE, On Sun11/18/23 at 0200, For 1 dose Given 11/18/2023 1:32 AM EDT 0.5 mg losartan (Cozaar) tab 50 mg 50 mg, Oral, BID (.AM/PM), First dose on Sun11/14/23 at 0900, Until Discontinued Given 11/19/2023 9:13 AM EDT 50 mg Given 11/18/2023 10:20 PM EDT 50 mg Given 11/18/2023 8:01 AM EDT 50 mg melatonin tab 3 mg 3 mg, Oral, HS PRN Insomnia, Starting on Sun11/18/23 at 0033, Until 11/24/23 at 1859 Given 11/20/2023 9:18 PM EDT 3 m g Given 11/18/2023 10:20 PM EDT 3 mg Given 11/18/2023 12:37 AM EDT 3 mg metoclopramide (Reglan) tab 5 mg 5 mg, Oral, ACHS, First dose on Sun11/19/23 at 1630, Until Discontinued Given 11/24/2023 11:32 AM EDT 5 mg Given 11/24/2023 6:37 AM EDT 5 mg Given 11/23/2023 10:11 PM EDT 5 mg metroNIDAZOLE (Flagyl) tab 500 mg 500 mg, Oral, Q8H, First dose on Sun11/16/23 at 0815, Last dose on Sun11/21/23 at 0000, For 5 days Given 11/21/2023 1:07 AM EDT 500 mg Given 11/20/2023 4:23 PM EDT 500 mg Given 11/20/2023 7:54 AM EDT 500 mg Mirtazapine (Remeron) tab 7.5 mg 7.5 mg, Oral, HS, First dose on Sun11/16/23 at 2200, Until Discontinued Given 11/23/2023 10:11 PM EDT 7.5 mg Given 11/22/2023 10:05 PM EDT 7.5 mg Given 11/21/2023 9:34 PM EDT 7.5 mg montelukast (Singulair) tab 10 mg 10 mg, Oral, DAILY NOON, First dose on Sun11/14/23 at 1200, Until Discontinued Given 11/24/2023 11:32 AM EDT 10 mg Given 11/23/2023 11:46 AM EDT 10 mg Given 11/21/2023 11:30 AM EDT 10 mg omeprazole (PriLOSEC) cap 40 mg 40 mg, Oral, Daily(AM), First dose on Sun11/18/23 at 0900, Until Discontinued, This med should NOT be Crushed or Chewed Given 11/19/2023 9:12 AM EDT 40 mg Given 11/18/2023 8:01 AM EDT 40 mg ondansetron (Zofran) inj 4 mg 4 mg, IV Push, Q6H PRN Nausea, Starting on Sun11/13/23 at 1530, Until Sun11/24/23 at 1859 Given 11/19/2023 2:45 PM EDT 4 mg Given 11/18/2023 11:09 AM EDT 4 mg Given 11/15/2023 3:26 AM EDT 4 mg oxybutynin (Ditropan) tab 5 mg 5 mg, Oral, HS, First dose on Sun11/13/23 at 2200, Until Discontinued Given 11/23/2023 10:11 PM EDT 5 mg Given 11/22/2023 10:05 PM EDT 5 mg Given 11/21/2023 9:34 PM EDT 5 mg Pantoprazole (Protonix) 80 mg in NSS 100 mL ivpb 80 mg, IV Piggyback, ONCE, 1 dose, On Sun11/21/23 at 1245, Administer over 15 Minutes New Bag 11/21/2023 1:22 PM EDT 80 mg 420 mL/hr Pantoprazole (Protonix) 80 mg in NSS 500 mL INFUSION Intravenous, at 50 mL/hr, CONTINUOUS, Starting on Sun11/21/23 at 1245, Until Sun11/23/23 at 1607 New Bag 11/23/2023 12:18 PM EDT 8 mg/hr 50 mL/hr Restarted 11/23/2023 12:07 PM EDT 8 mg/hr 50 mL/hr Restarted 11/23/2023 11:21 AM EDT 8 mg/hr 50 mL/hr Pantoprazole (Protonix) inj 40 mg 40 mg, IV Push, Daily(AM), First dose on Sun11/14/23 at 0900, Until Discontinued, IV push instructions: Flush I.V. Line before and after administration. In-line filter not required. 2-minute infusion: The volume of reconstituted solution (4mg/ml) to be injected may be administered intravenously over at least 2 minutes. ( Dilute each vial with 10 ml of 0.9% saline PF) Given 11/17/2023 8:02 AM EDT 40 mg Given 11/16/2023 8:43 AM EDT 40 mg Given 11/15/2023 8:56 AM EDT 40 mg pantoprazole (Protonix) tab 40 mg 40 mg, Oral, Daily(AM), First dose on Sun11/20/23 at 0900, Until Discontinued, This med should NOT be Crushed or Chewed Given 11/21/2023 9:25 AM EDT 40 mg Given 11/20/2023 9:31 AM EDT 40 mg senna-docusate (Senokot-S) 1 Tablet 1 Tablet, Oral, BID (.AM/PM), First dose on Sun11/16/23 at 0900, Until Discontinued Given 11/23/2023 10:11 PM EDT 1 Tablet Given 11/23/2023 9:05 AM EDT 1 Tablet Given 11/22/2023 10:05 PM EDT 1 Tablet sodium chloride 0.9 % flush peripheral alexei 3 mL 3 mL, IV Push, QSHIFT, First dose on Sun11/13/23 at 1615, Until Discontinued, Do not flush if lock, PICC, or central line not in place; IV infusing or unable to flush. Given 11/16/2023 8:00 AM EDT 3 mL Given 11/15/2023 8:56 AM EDT 3 mL Given 11/14/2023 4:00 PM EDT 3 mL Spironolactone (Aldactone) tab 100 mg 100 mg, Oral, Daily(AM), First dose on Sun11/16/23 at 0900, Until Discontinued Given 11/19/2023 9:13 AM EDT 100 mg Given 11/18/2023 8:00 AM EDT 100 mg Given 11/17/2023 8:09 AM EDT 100 mg Spironolactone (Aldactone) tab 100 mg 100 mg, Oral, Daily(AM), First dose (after last modification) on Sun11/20/23 at 0900, Until Discontinued Given 11/20/2023 9:30 AM EDT 100 mg Sucralfate (Carafate) susp 1,000 mg 1,000 mg (1 g), Oral, ACHS, First dose on Sun11/21/23 at 1245, Until Discontinued, Shake well! Given 11/24/2023 11:32 AM EDT 1,000 mg Given 11/24/2023 6:37 AM EDT 1,000 mg Given 11/23/2023 10:11 PM EDT 1,000 mg Urea (Ure-Na) powder packet 15 g 15 g, Oral, BID (.AM/PM), First dose on Sun11/21/23 at 1300, Until Discontinued Given 11/24/2023 9:42 AM EDT 15 g Given 11/23/2023 10:11 PM EDT 15 g Given 11/23/2023 9:05 AM EDT 15 g documented in this encounter Active and Recently Administered Medications Times are shown in EDT. Scheduled Medication Order 11/22/2023 11/23/2023 11/24/2023 atorvaSTATin (Lipitor) tab 40 mg 40 mg, Oral, HS, First dose on Sun11/13/23 at 2200, Until Discontinued 2204 (Given - Provider: Burt Howell RN) 2210 (Given - Provider: Burt Howell RN) busPIRone (Buspar) tab 5 mg 5 mg, Oral, BID (.AM/PM), First dose on Sun11/13/23 at 2100, Until Discontinued 939 (Given - Provider: Diego Modi LPN)2204 (Given - Provider: Burt Howell RN) 904 (Given - Provider: Kim Delcid, CINDA)2210 (Given - Provider: Burt Howell RN) 0942 (Given - Provider: Kim Delcid, CINDA) Carvedilol (Coreg) tab 12.5 mg 12.5 mg, Oral, BID (.AM/PM), First dose (after last modification) on Ewelina 11/22/23 at 0900, Until Discontinued, Hold for HR less than 60 or SBP below 100 and notify service if dose is held MUST BE GIVEN WITH MEAL, Indications: SBP > 145 mm Hg 0940 (Given - Provider: Diego Modi LPN)2205 (Given - Provider: Burt Howell, CINDA) 09 (Given - Provider: Kim Delcid, CINDA)221 (Given - Provider: Burt Howell, CINDA) 0942 (Given - Provider: Kim Delcid RN) Ferrous Sulfate (Feosol) tab 325 mg 325 mg, Oral, DAILY NOON, First dose on Sun11/14/23 at 1200, Until Discontinued, This med should NOT be Crushed or Chewed 1200 (OR/Procedure - Provider: Courtney Grimaldo RN) 1146 (Given - Provider: Kim Delcid RN) 1132 (Given - Provider: Kim Delcid, CINDA) Fluticasone (Flovent HFA) 220 MCG/ACT inhaler 2 Puff 2 Puff, Inhalation, [id number], First dose on Sun11/13/23 at 1900, Until Discontinued, 220 mcg / Actuation. Rinse mouth w/ water and spit after each use WASTE INFO: Return waste medication to pharmacy in zip lock bag - SP container. 0800 (Given - Provider: Ochoa Priest, KIRSTIN)1917 (Given - Provider: Keyonna Madden RRT) 0737 (Given - Provider: Ochoa Priest, KIRSTIN)191 (Given - Provider: Ochoa Priest RRT) 0732 (Given - Provider: Tania Shelton, KIRSTIN) levothyroxine (Levoxyl) tab 100 mcg 100 mcg, Oral, [id number], First dose on Sun11/14/23 at 0630, Until Discontinued 0549 (Given - Provider: Conchita Cook RN) 0636 (Given - Provider: Burt Howell, CINDA) 0637 (Given - Provider: Burt Howell, CINDA) LiquaCel 30 mL, Oral, BID (.AM/PM), First dose on Sun11/19/23 at 1045, Until Discontinued 0940 (Given - Provider: Diego Modi LPN)220 (Given - Provider: Burt Howell RN) 09 (Given - Provider: Kim Delcid RN)221 (Given - Provider: Burt Howell RN) 0942 (Given - Provider: Kim Delcid RN) metoclopramide (Reglan) tab 5 mg 5 mg, Oral, ACHS, First dose on Sun11/19/23 at 1630, Until Discontinued 0741 (Given - Provider: Diego Modi LPN)1130 (OR/Procedure - Provider: Courtney Grimaldo RN)1617 (Given - Provider: Diego Modi LPN)220 (Given - Provider: Burt Howell RN) 0636 (Given - Provider: Burt Howell RN)1146 (Given - Provider: Kim Delcid RN)163 (Given - Provider: Kim Delcid RN)221 (Given - Provider: Burt Howell RN) 0637 (Given - Provider: Burt Howell RN)113 (Given - Provider: Kim Delcid RN) Mirtazapine (Remeron) tab 7.5 mg 7.5 mg, Oral, HS, First dose on Sun11/16/23 at 2200, Until Discontinued 2204 (Given - Provider: Burt Howell RN) 221 (Given - Provider: Burt Howell RN) montelukast (Singulair) tab 10 mg 10 mg, Oral, DAILY NOON, First dose on Sun11/14/23 at 1200, Until Discontinued 1200 (OR/Procedure - Provider: Courtney Grimaldo RN) 1146 (Given - Provider: Kim Delcid RN) 1132 (Given - Provider: Kim Delcid RN) oxybutynin (Ditropan) tab 5 mg 5 mg, Oral, HS, First dose on Sun11/13/23 at 2200, Until Discontinued 2204 (Given - Provider: Burt Howell RN) 221 (Given - Provider: Burt Howell RN) senna-docusate (Senokot-S) 1 Tablet 1 Tablet, Oral, BID (.AM/PM), First dose on Sun11/16/23 at 0900, Until Discontinued 0900 (Not Given - Provider: Diego Modi LPN - Reason: Refused-Notify Provider - Comment: Dr Steen made aware)220 (Given - Provider: Burt Howell RN) 09 (Given - Provider: Kim Delcid RN)221 (Given - Provider: Burt Howell RN) 0900 (Not Given - Provider: Kim Delcid RN - Reason: Refused-Notify Provider) Sucralfate (Carafate) susp 1,000 mg 1,000 mg (1 g), Oral, ACHS, First dose on Sun11/21/23 at 1245, Until Discontinued, Shake well! 0741 (Given - Provider: Diego Modi LPN)1130 (OR/Procedure - Provider: Courtney Grimaldo RN)1617 (Given - Provider: Dieog Modi LPN)2204 (Given - Provider: Burt Howell RN) 0636 (Given - Provider: Burt Howell RN)1146 (Given - Provider: Kim Delcid RN)1633 (Given - Provider: Kim Delcid RN)2211 (Given - Provider: Burt Howell RN) 0637 (Given - Provider: Burt Howell RN)1132 (Given - Provider: Kim Delcid RN) Urea (Ure-Na) powder packet 15 g 15 g, Oral, BID (.AM/PM), First dose on Sun11/21/23 at 1300, Until Discontinued 0940 (Given - Provider: Diego Modi LPN)220 (Given - Provider: Burt Howell RN) 09 (Given - Provider: Kim Delcid RN)221 (Given - Provider: Burt Howell RN) 0942 (Given - Provider: Kim Delcid RN) Continuous Medication Order 11/22/2023 11/23/2023 11/24/2023 Pantoprazole (Protonix) 80 mg in NSS 500 mL INFUSION (CANCELED) Intravenous, at 50 mL/hr, CONTINUOUS, Starting on Sun11/21/23 at 1245, Until Sun11/23/23 at 1607 0122 (New Bag - Provider: Conchita Cook RN)0549 (Rate Verify - Provider: Conchita Cook RN)0651 (Rate Verify - Provider: Diego Modi LPN)1052 (KVO - Provider: Diego Modi LPN)1111 (Restarted - Provider: Diego Modi LPN)1516 (New Bag - Provider: Courtney Grimaldo RN)1626 (Rate Verify - Provider: Diego Modi LPN)1718 (Paused - Provider: Burt Howell RN)1723 (Restarted - Provider: Burt Howell RN)1739 (Paused - Provider: Burt Howell RN)1751 (Restarted - Provider: Burt Howell RN)1751 (Paused - Provider: Burt Howell, CINDA)1753 (Restarted - Provider: Burt Howell, CINDA)2236 (Rate Verify - Provider: Burt Howell RN) 0102 (Stopped - Provider: Kim Delcid RN)0200 (New Bag - Provider: Burt Howell RN)0407 (Paused - Provider: Kim Delcid RN)0413 (Restarted - Provider: Kim Delcid RN)0822 (Paused - Provider: Kim Delcid RN)0826 (Restarted - Provider: Kim Delcid, RN)0927 (Paused - Provider: Kim Delcid, RN)0931 (Restarted - Provider: Kim Delcid, RN)1030 (Paused - Provider: Kim Delcid, RN)1034 (Restarted - Provider: Kim Delcid RN)1043 (Paused - Provider: Kim Delcid, RN)1049 (Restarted - Provider: Kim Delcid RN)1110 (Paused - Provider: Kim Delcid RN)1121 (Restarted - Provider: Kim Delcid RN)1121 (Paused - Provider: Kim Delcid RN)1207 (Restarted - Provider: Kim Delcid RN)1212 (Stopped - Provider: Kim Delcid RN)1218 (New Bag - Provider: Kim Delcid, RN)1607 (Stopped - Provider: Kim Delcid RN) PRN Medication Order 11/22/2023 11/23/2023 11/24/2023 Acetaminophen (Tylenol) tab 650 mg 650 mg, Oral, Q6H PRN Pain, Mild, Fever >38C(100.5F), Starting on Sun11/13/23 at 1530, Until 11/24/23 at 1859, Maximum of 4 grams (4000 mg) per day. Benzonatate (Tessalon Perles) cap 100 mg 100 mg, Oral, BID PRN Cough, Starting on Sun11/13/23 at 1522, Until 11/24/23 at 1859, This med should NOT be Crushed or Chewed HYDROmorphone (Dilaudid) tab 2 mg 2 mg, Oral, Q4H PRN Pain, Severe, Pain, Moderate, Starting on 11/17/23 at 1242, Until 11/24/23 at 1859 LORAzepam (Ativan) tab 0.5 mg 0.5 mg, Oral, Q12H PRN Anxiety, Starting on Sun11/13/23 at 1521, Until 11/24/23 at 1859 0148 (Given - Provider: Conchita Cook RN) 0148 (Given - Provider: Burt Howell, CINDA)2211 (Given - Provider: Burt Howell, CINDA) melatonin tab 3 mg 3 mg, Oral, HS PRN Insomnia, Starting on Sun11/18/23 at 0033, Until 11/24/23 at 1859 ondansetron (Zofran) inj 4 mg 4 mg, IV Push, Q6H PRN Nausea, Starting on Sun11/13/23 at 1530, Until 11/24/23 at 1859 documented in this encounter Advance Directives * [...] and were consensually agreed upon. Care Teams Cuff Slitter Relationship Specialty Start Date End Date Ronnie Claudio DO [address] [id number] PCP - General Family Medicine 05/10/20 documented as of this encounter
--- OUTSIDE RECORDS SUMMARY | 2023-12-09 11:06 | External Medical Summary ---
Author Name Unknown Address Unknown Organization K0G:[facility] [place] [address] Laboratory Report Ordering Provider Test Date Status HY,DEPAMPHILIS 11/25/2023 07:49:58 Final Observation Date Value Abnormality Reference (Units ) Status BUN 11/25/2023 07:49:58 44 Above high normal 6-20 (mg/dL) Final Creatinine 11/25/2023 07:49:58 0.9 0.5-1.0 (mg/dL) Final Glomerular filtration rate/1.73 sq M.predicted [Volume Rate/Area] in Serum, Plasma or Blood by Creatinine-based formula (CKD-EPI) 11/25/2023 07:49:58 67 >=60 (mL/min) Final eGFR is calculated based on the CKD-EPI 2020 equation Sodium 11/25/2023 07:49:58 130 Below low normal 135 -146 (mmol/L) Final Potassium 11/25/2023 07:49:58 4.1 3.5-5.1 (m mol/L) Final Result may be falsely elevat ed due to hemolysis. Cl 11/25/2023 07:49:58 100 98-107 (mm ol/L) Final CO2 11/25/2023 07:49:58 20 Below low normal 22- 32 (mmol/L) Final Anion gap 11/25/2023 07:49:58 10 7-15 (mmol /L) Final Glucose 11/25/2023 07:49:58 113 70-120 (mg /dL) Final Calcium 11/25/2023 07:49:58 8.2 Below low normal 8.4 -10.2 (mg/dL) Final Performing Location [facility] [place] [address]
--- OUTSIDE RECORDS SUMMARY | 2023-12-09 11:06 | External Medical Summary ---
Author Name Unknown Address Unknown Organization [id number]:[facility] - [address] [place] [address] Laboratory Report Ordering Provider Test Date Status YAMILETH JAMIL 11/24/2023 04:55:00 Final Observation Date Value Abnormality Reference (Units ) Status BUN 11/24/2023 04:55:00 42 Above high normal 6-20 (mg/dL) Final Creatinine 11/24/2023 04:55:00 0.9 0.5-1.0 (mg/dL) Final Glomerular filtration rate/1.73 sq M.predicted [Volume Rate/Area] in Serum, Plasma or Blood by Creatinine-based formula (CKD-EPI) 11/24/2023 04:55:00 63 >=60 (mL/min) Final eGFR is calculated based on the CKD-EPI 2020 equation Sodium 11/24/2023 04:55:00 131 Below low normal 135 -146 (mmol/L) Final Potassium 11/24/2023 04:55:00 4.1 3.5-5.1 (m mol/L) Final Cl 11/24/2023 04:55:00 100 98-107 (mm ol/L) Final CO2 11/24/2023 04:55:00 18 Below low normal 22- 32 (mmol/L) Final Anion gap 11/24/2023 04:55:00 13 7-15 (mmol /L) Final Glucose 11/24/2023 04:55:00 124 Above high normal 70 -120 (mg/dL) Final Calcium 11/24/2023 04:55:00 8.1 Below low normal 8.4 -10.2 (mg/dL) Final Performing Location [facility] - [address] [place] [address]
--- OUTSIDE RECORDS SUMMARY | 2023-12-09 11:06 | External Medical Summary ---
Author Name Unknown Address Unknown Organization K1F:[facility] - [address] [place] [address] Laboratory Report Ordering Provider Test Date Status YAMILETH JAMIL 11/24/2023 04:55:00 Final Observation Date Value Abnormality Reference (Units ) Status Magnesium 11/24/2023 04:55:00 1.9 1.5-2.6 (m g/dL) Final Performing Location [facility] - [address] [place] [address]
--- OUTSIDE RECORDS SUMMARY | 2023-12-09 11:07 | External Medical Summary ---
Author Name Unknown Address Unknown Organization K1F:[facility] - [address] [place] [address] Laboratory Report Ordering Provider Test Date Status NOREEN JUAREZ 11/22/2023 03:53:00 Final Observation Date Value Abnormality Reference (Units ) Status WBC, Total 11/22/2023 03:53:00 8.18 4.00-10.80 (K/uL) Final RBC 11/22/2023 03:53:00 3.03 3.85-5.15 (M/uL) Final Hemoglobin 11/22/2023 03:53:00 9.1 Below low normal 12.0-15.3 (g/dL) Final HCT 11/22/2023 03:53:00 27.2 Below low normal 36.0-45.2 (%) Final MCV 11/22/2023 03:53:00 89.8 81.5-97.5 (fL) Final MCH 11/22/2023 03:53:00 30.0 27.0-34.0 (pg) Final MCHC 11/22/2023 03:53:00 33.5 32.0-36.0 (g/dL) Final RDW 11/22/2023 03:53:00 16.4 11.5-15.5 (%) Final Platelets 11/22/2023 03:53:00 64 Below low normal 140-400 (K/uL) Final MPV 11/22/2023 03:53:00 10.6 6.6-11.1 (fL) Final Nucleated erythrocytes/100 leukocytes [Ratio] in Blood by Automated count 11/22/2023 03:53:00 0 <=0 (/100 WBCs) Final Performing Location [facility] - [address] [place] [address]
--- OUTSIDE RECORDS SUMMARY | 2023-12-09 11:07 | External Medical Summary ---
Author Name Unknown Address Unknown Organization K1F:[facility] - [address] [place] [address] Laboratory Report Ordering Provider Test Date Status YAMILETH JAMIL 11/20/2023 06:55:00 Final Observation Date Value Abnormality Reference (Units ) Status Magnesium 11/20/2023 06:55:00 1.9 1.5-2.6 (m g/dL) Final Performing Location [facility] - [address] [place] [address]
--- OUTSIDE RECORDS SUMMARY | 2023-12-09 11:07 | External Medical Summary ---
Author Name Unknown Address Unknown Organization K1F:[facility] - [address] [place] [address] Laboratory Report Ordering Provider Test Date Status YAMILETH JAMIL 11/22/2023 03:53:00 Final Observation Date Value Abnormality Reference (Units ) Status Magnesium 11/22/2023 03:53:00 1.8 1.5-2.6 (m g/dL) Final Performing Location [facility] - [address] [place] [address]
--- OUTSIDE RECORDS SUMMARY | 2023-12-09 11:07 | External Medical Summary ---
Author Name Unknown Address Unknown Organization K01:[facility] [place] - [address] [facility] [address] Laboratory Report Ordering Provider Test Date Status YAMILETH JAMIL 11/21/2023 03:48:00 Final Observation Date Value Abnormality Reference (Units ) Status Triglyceride 11/21/2023 03:48:00 62 <=174 ( mg/dL) Final Triglyceride Reference Range s (mg/dL):
<150 Acceptable
150-174 Borderline high
175-499 High
>=500 Very high Performing Location [facility] - [address] [place] [address]
--- OUTSIDE RECORDS SUMMARY | 2023-12-09 11:07 | External Medical Summary ---
Author Name Unknown Address Unknown Organization K01:[facility] [place] - [address] [place] [address] Laboratory Report Ordering Provider Test Date Status NOREEN JUAREZ 11/19/2023 07:48:00 Final Observation Date Value Abnormality Reference (Units ) Status Folic Acid 11/19/2023 07:48:00 13.4 >4.5 (ng/ mL) Final Performing Location LABORATORY [facility] - [address] [place] [address]
--- OUTSIDE RECORDS SUMMARY | 2023-12-09 11:07 | External Medical Summary ---
Author Name Unknown Address Unknown Organization [id number]:LABORATORY [facility] - [address] [place] [address] Laboratory Report Ordering Provider Test Date Status NOREEN JUAREZ 11/20/2023 01:27:18 Final Observation Date Value Abnormality Reference (Units ) Status Sodium, Urine 11/20/2023 01:27:18 54 (mmol/ L) Final Performing Location LABORATORY [facility] - [address] [place] [address]
--- OUTSIDE RECORDS SUMMARY | 2023-12-09 11:07 | External Medical Summary ---
Author Name Unknown Address Unknown Organization K1F:LABORATORY [facility] - [facility] [place] [address] Laboratory Report Ordering Provider Test Date Status NOREEN JUAREZ 11/21/2023 03:49:00 Final Observation Date Value Abnormality Reference (Units ) Status WBC, Total 11/21/2023 03:49:00 6.60 4.00-10.80 (K/uL) Final RBC 11/21/2023 03:49:00 2.26 3.85-5.15 (M/uL) Final Hemoglobin 11/21/2023 03:49:00 6.9 Below low normal 12.0-15.3 (g/dL) Final HCT 11/21/2023 03:49:00 20.6 Below low normal 36.0-45.2 (%) Final MCV 11/21/2023 03:49:00 91.2 81.5-97.5 (fL) Final MCH 11/21/2023 03:49:00 30.5 27.0-34.0 (pg) Final MCHC 11/21/2023 03:49:00 33.5 32.0-36.0 (g/dL) Final RDW 11/21/2023 03:49:00 15.6 11.5-15.5 (%) Final Platelets 11/21/2023 03:49:00 51 Below low normal 140-400 (K/uL) Final MPV 11/21/2023 03:49:00 10.6 6.6-11.1 (fL) Final Nucleated erythrocytes/100 leukocytes [Ratio] in Blood by Automated count 11/21/2023 03:49:00 0 <=0 (/100 WBCs) Final Performing Location LABORATORY [facility] - [address] [place] [address]
--- OUTSIDE RECORDS SUMMARY | 2023-12-09 11:07 | External Medical Summary ---
Author Name Unknown Address Unknown Organization K1F[facility] [address] [facility] [place] [address] Laboratory Report Ordering Provider Test Date Status NOREEN JUAREZ 11/21/2023 03:48:00 Final Observation Date Value Abnormality Reference (Units ) Status BUN 11/21/2023 03:48:00 36 Above high normal 6-20 (mg/dL) Final Creatinine 11/21/2023 03:48:00 1.4 Above high normal 0.5-1.0 (mg/dL) Final Glomerular filtration rate/1.73 sq M.predicted [Volume Rate/Area] in Serum, Plasma or Blood by Creatinine-based formula (CKD-EPI) 11/21/2023 03:48:00 38 Below low normal >=60 (mL/min) Final eGFR is calculated based on the CKD-EPI 2020 equation Sodium 11/21/2023 03:48:00 125 Below low normal 135 -146 (mmol/L) Final Potassium 11/21/2023 03:48:00 4.5 3.5-5.1 (m mol/L) Final Cl 11/21/2023 03:48:00 96 Below low normal 98- 107 (mmol/L) Final CO2 11/21/2023 03:48:00 21 Below low normal 22- 32 (mmol/L) Final Anion gap 11/21/2023 03:48:00 8 7-15 (mmol /L) Final Glucose 11/21/2023 03:48:00 104 70-120 (mg /dL) Final Albumin 11/21/2023 03:48:00 2.6 Below low normal 3.8 -5.0 (g/dL) Final AST (Aspartate aminotransferase) 11/21/2023 03:48:00 21 10-35 (U/L) Fin al Alk Phos 11/21/2023 03:48:00 61 35-130 (U/ L) Final Bilirubin, Total 11/21/2023 03:48:00 0.5 <=1 .2 (mg/dL) Final Calcium 11/21/2023 03:48:00 7.8 Below low normal 8.4 -10.2 (mg/dL) Final Protein 11/21/2023 03:48:00 4.6 Below low normal 6.0 -8.3 (g/dL) Final ALT (Alanine aminotransferase) 11/21/2023 03:48:00 12 10-35 (U/L) Joseluis bess [facility] Location LABORATORY [facility] - [address] [place], [place] [address]le[address] [place] [address]
--- OUTSIDE RECORDS SUMMARY | 2023-12-09 11:07 | External Medical Summary ---
Author Name Unknown Address Unknown Organization K1F:LABORATORY [facility] - [address] [place] [address] Laboratory Report Ordering Provider Test Date Status YAMILETH JAMIL 11/21/2023 03:48:00 Final Observation Date Value Abnormality Reference (Units ) Status Phosphate 11/21/2023 03:48:00 3.1 2.5-4.8 (m g/dL) Final Performing Location LABORATORY [facility] - [address] [place] [address]
--- OUTSIDE RECORDS SUMMARY | 2023-12-09 11:07 | External Medical Summary ---
Author Name Unknown Address Unknown Organization K1F:LABORATORY [facility] - [address] [place] [address] Laboratory Report Ordering Provider Test Date Status YAMILETH JAMIL 11/21/2023 03:48:00 Final Observation Date Value Abnormality Reference (Units ) Status Bilirubin, Direct 11/21/2023 03:48:00 <0.2 0. 0-0.3 (mg/dL) Final Performing Location LABORATORY [facility] - [address] [place] [address]
--- OUTSIDE RECORDS SUMMARY | 2023-12-09 11:07 | External Medical Summary ---
Author Name Unknown Address Unknown Organization K1F:LABORATORY [facility] - [address] [place] [address] Laboratory Report Ordering Provider Test Date Status NOREEN JUAREZ 11/21/2023 17:47:00 Final Observation Date Value Abnormality Reference (Units ) Status Hemoglobin 11/21/2023 17:47:00 9.2 Below low normal 12 .0-15.3 (g/dL) Final HCT 11/21/2023 17:47:00 27.2 Below low normal 36. 0-45.2 (%) Final Performing Location LABORATORY [facility] - [address] [place] [address]
--- OUTSIDE RECORDS SUMMARY | 2023-12-09 11:07 | External Medical Summary ---
Author Name Unknown Address Unknown Organization K1F:LABORATORY [facility] - [address] [place] [address] Laboratory Report Ordering Provider Test Date Status YAMILETH JAMIL 11/21/2023 03:48:00 Final Observation Date Value Abnormality Reference (Units ) Status Magnesium 11/21/2023 03:48:00 1.9 1.5-2.6 (m g/dL) Final Performing Location LABORATORY [facility] - [address] [place] [address]
--- OUTSIDE RECORDS SUMMARY | 2023-12-09 11:07 | External Medical Summary ---
Author Name Unknown Address Unknown Organization K1F:LABORATORY [facility] - [address] [place] [address] Laboratory Report Ordering Provider Test Date Status YAMILETH JAMIL 11/23/2023 04:11:00 Final Observation Date Value Abnormality Reference (Units ) Status Phosphate 11/23/2023 04:11:00 2.1 Below low normal 2.5 -4.8 (mg/dL) Final Performing Location LABORATORY [facility] - [address] [place] [address]
--- OUTSIDE RECORDS SUMMARY | 2023-12-09 11:07 | External Medical Summary ---
Author Name Unknown Address Unknown Organization K1F:LABORATORY [facility] - [address] [place] [address] Laboratory Report Ordering Provider Test Date Status YAMILETH JAMIL 11/20/2023 06:55:00 Final Observation Date Value Abnormality Reference (Units ) Status Phosphate 11/20/2023 06:55:00 3.6 2.5-4.8 (m g/dL) Final Performing Location LABORATORY [facility] - [address] [place] [address]
--- OUTSIDE RECORDS SUMMARY | 2023-12-09 11:07 | External Medical Summary ---
Author Name Unknown Address Unknown Organization K1F:LABORATORY [facility] - [address] [place] [address] Laboratory Report Ordering Provider Test Date Status NOREEN JUAREZ 11/20/2023 06:55:00 Final Observation Date Value Abnormality Reference (Units ) Status WBC, Total 11/20/2023 06:55:00 7.60 4.00-10.80 (K/uL) Final RBC 11/20/2023 06:55:00 2.53 3.85-5.15 (M/uL) Final Hemoglobin 11/20/2023 06:55:00 7.9 Below low normal 12.0-15.3 (g/dL) Final HCT 11/20/2023 06:55:00 23.2 Below low normal 36.0-45.2 (%) Final MCV 11/20/2023 06:55:00 91.7 81.5-97.5 (fL) Final MCH 11/20/2023 06:55:00 31.2 27.0-34.0 (pg) Final MCHC 11/20/2023 06:55:00 34.1 32.0-36.0 (g/dL) Final RDW 11/20/2023 06:55:00 15.6 11.5-15.5 (%) Final Platelets 11/20/2023 06:55:00 59 Below low normal 140-400 (K/uL) Final MPV 11/20/2023 06:55:00 11.1 6.6-11.1 (fL) Final Nucleated erythrocytes/100 leukocytes [Ratio] in Blood by Automated count 11/20/2023 06:55:00 0 <=0 (/100 WBCs) Final Performing Location LABORATORY [facility] - [address] [place] [address]
--- OUTSIDE RECORDS SUMMARY | 2023-12-09 11:07 | External Medical Summary ---
Author Name Unknown Address Unknown Organization K1F:LABORATORY [facility] - [address] [place] [address] Laboratory Report Ordering Provider Test Date Status MARISOL TAVAREZ 11/21/2023 07:02:00 Final Observation Date Value Abnormality Reference (Units ) Status ABO 11/21/2023 07:02:00 A Final RH 11/21/2023 07:02:00 Positive Final RED BLOOD CELL ANTIBODY SCREEN 11/21/2023 07:02:00 Negative Final SPECIMEN EXPIRATION DATE 11/21/2023 07:02:00 11/24/2023 23:59 Final Performing Location LABORATORY [facility] - [address] [place] [address]
--- OUTSIDE RECORDS SUMMARY | 2023-12-09 11:07 | External Medical Summary | Summary of Care ---
Author Name Unknown Organization [facility] Address [address] [place] [address] Phone [phone] Care Team Providers Care Information Security Analyst Name Role Phone Ronnie Claudio Primary Care Provider + Reason for Referral * Precert (Within 10 days (routine)) - Authorized Specialty Diagnoses / Procedures Referred By Contac t Referred To Contact Radiology Diagnoses Acute pancreatitis, unspecified complication status, unspecified pancreatitis type Procedures CT ABD/PELVIS W IV CONTRAST - WO ORAL CONTRAST Baljit Fernando MD [address] [place] [address] Referral ID Status Reason Start Date Expiration Date V isits Requested Visits Authorized [id number] Authorized 11/29/2023 999 999 Encounter Details Date Type Department Care Team ([facility] Contact Info) Description 11/15/2023 Telephone OR [facility], Operating Room, [facility] - 4th Floor [address] [facility] [place] [address] Baljit Fernando MD [address] [place] [address] Allergies Active Allergy Reactions Criticality Noted Date Comments Sulfamethoxazole-Trimethoprim Nausea/vomiting High 1 documented as of this encounter (statuses as of 11/19/2023) Medications Medication Sig Dispensed Refills Start Date End Date Status Asmanex (120 Metered Doses) 220 MCG/INH Inhalation Aerosol Powder Breath Activated (Mometasone Furoate) Inhale 2 Puffs by mouth in the morning and 2 Puffs before bedtime. Suspended Albuterol Sulfate 108 (90 Base) MCG/ACT Inhalation Aerosol Powder Breath Activated Inhale 2 Puffs by mouth every 6 hours as needed for Wheezing. Suspended Amoxicillin 500 MG Oral Capsule (AMOXIL) Take 1 Capsule by mouth as needed (Take 4 capsules 1 hour prior to dental appt). Suspended Docusate Sodium 100 MG Oral Tablet Take 1 Tablet by mouth in the morning. Suspended Ferrous Sulfate 325 (65 Fe) MG Oral Tablet (FEOSOL) Take 1 Tablet by mouth daily at noon. Suspended busPIRone HCl 5 MG Oral Tablet (BUSPAR) Take 1 Tablet by mouth in the morning and 1 Tablet before bedtime. Suspended Levothyroxine Sodium 100 MCG Oral Capsule (Tirosint) Take 1 Capsule by mouth daily first thing in the morning. (at least 30 min prior to breakfast or other meds) Suspended LORazepam 0.5 MG Oral Tablet (ATIVAN) Take 1 Tablet by mouth every 12 hours as needed for Anxiety. Suspended Losartan Potassium 100 MG Oral Tablet (COZAAR) Take 0.5 Tablets by mouth in the morning and 0.5 Tablets before bedtime. Takes 100 mg in the pm with dinner. Suspended Cranberry 1000 MG Oral Capsule Take 1,000 mg by mouth daily. 4 Discontinued Coenzyme Q10 100 MG Oral Capsule Take 1 Capsule by mouth in the morning. Suspended Citracal Petites/Vitamin D 200-250 MG-UNIT Oral Tablet (Calcium Citrate-Vitamin D) Take 1 Tab by mouth 2 times a day. Suspended Carvedilol 25 MG Oral Tablet (Coreg)Indicatio ns:SBP > 145 mm Hg Take 1 Tablet by mouth in the morning and 1 Tablet before bedtime. Taking everyday. Suspended Apixaban 5 MG Oral Tablet (Eliquis) Take 1 Tablet by mouth in the morning and 1 Tablet before bedtime. 180 Tablet 09/07/2021 Suspended Ocuvite Adult 50+ Oral Capsule Take 1 Capsule by mouth in the morning. Suspended Vitamin D3 25 MCG (1000 UT) Oral Capsule Take by mouth 2 times a day . Suspended B-12 500 MCG Oral Tablet Take by mouth 2 times a day . Suspended Zinc 50 MG Oral Capsule Take 1 Capsule by mouth in the morning. Suspended Nelia-C Oral Tablet Take by mouth 1 Tablet daily . 500 mg Suspended L-Lysine 500 MG Oral Capsule Take by mouth daily . Suspended Lutein 10 MG Oral Tablet Take by mouth 6 mg daily . Suspended Grapeseed Extract 500-50 MG Oral Capsule Take by mouth 100 mg 2 times a day . Suspended Biotinex Oral Capsule Take by mouth 1,000 mcg 2 times a day . Suspended Prevagen 10 MG Oral Capsule (Apoaequorin) Take by mouth. Takes two in the am Suspended Align 4 MG Oral Capsule Take 1 Capsule by mouth in the morning. Suspended Resveratrol 100 MG Oral Capsule Take by mouth. Takes two daily Suspended Pantoprazole Sodium 40 MG Oral Tablet Delayed Release (Protonix) Take 1 Tablet by mouth daily first thing in the morning. Suspended Montelukast Sodium 10 MG Oral Tablet (Singulair) Take 1 Tablet by mouth daily at noon. 04/23/2023 Suspended Atorvastatin Calcium 40 MG Oral Tablet (Lipitor) Take 1 Tablet by mouth at bedtime. Suspended Furosemide 40 MG Oral Tablet (Lasix) Take 1 Tablet by mouth in the morning. Suspended oxyBUTYnin Chloride 5 MG Oral Tablet (Ditropan) Take 1 Tablet by mouth at bedtime. Suspended Creon [id number] UNIT Oral Capsule Delayed Release Particles Take 1 Capsule by mouth in the morning and 1 Capsule at noon and 1 Capsule in the evening and 1 Capsule before bedtime. 11/07/2023 Suspended Spironolactone 100 MG Oral Tablet (Aldactone) Take 1 Tablet by mouth in the morning. Suspended Benzonatate 100 MG Oral Capsule (Tessalon Perles) Take 1 Capsule by mouth 2 times a day as needed for Cough. Suspended documented as of this encounter (statuses as of 11/19/2023) Active Problems Problem Noted Date Diagnosed Date Dilutional hyponatremia 11/18/2023 Anemia associated with nutritional deficiency Malnutrition of moderate degree 11/14/2023 Chronic idiopathic thrombocytopenia 11/14/2023 Ileus 11/14/2023 Sjogren's syndrome 11/14/2023 Acute pancreatitis 11/13/2023 [...] as of this encounter (statuses as of 11/19/2023) Resolved Problems Problem Noted Date Diagnosed Date Resolved Date UTI (urinary tract infection) 11/13/2023 11/14/2023 documented as of this encounter (statuses as of 11/19/2023) Immunizations Name Administration Dates Next Due COVID-19 [...] shopping? (15 years old or older) No 05/28/20 24 Cognitive Status Response Date of Assessm ent Because of a physical, menta l, or emotional condition, do you have serious difficulty concentrating, remembering, or making decisions? (5 years old or older) Yes 11/13/2023 documented as of this encounter Miscellaneous Notes * Telephone Encounter - Minnie Moncada OSA - 11/19/2023 11:37 AM EDT Lanette'd 12/11/23 EGD stent removal at [facility]. CT lanette'd 11/29/23. * Telephone Encounter - Nancy Connor OSA - 11/19/2023 11:21 AM EDT lmm * Telephone Encounter - Baljit Fernando MD - 11/15/2023 4:04 PM EDT Please schedule CT scan in 2-3 weeks and EGD for stent removal in 3-4 weeks with me at [facility]. documented in this encounter Plan of Treatment Upcoming Encounters Date Type Department Care Team (Latest Contact Info) Description 11/29/2023 12:00 PM EDT Imaging Radiology [facility] [address] [place] [address] 12/11/2023 2:39 PM EDT Hospital Encounter OR [facility], Operating Room, [facility] - 4th Floor [address] [place] [address] Baljit Fernando MD [address] [place] [address] 12/11/2023 2:39 PM EDT - 12/11/2023 3:17 PM EDT Surgery OR [facility], Operating Room, [facility] - 4th Floor [address] [place] [address] Baljit Fernando MD [address] [place] [address] ESOPHAGOGASTRODUODENOSCOPY (EGD), FLEXIBLE, TRANSORAL, DIAGNOSTIC Scheduled Orders Name Type Priority Associated Diagnoses Orde r Schedule CT ABD/PELVIS W IV CONTRAST - WO ORAL CONTRAST Medical Imaging Routine Acute pancreatitis, unspecified complication status, unspecified pancreatitis type Expected: 11/29/2023, Expires: 12/15/2024 Scheduled Procedures Name Priority Associated Diagnoses Date/Ti me ESOPHAGOGASTRODUODENOSCOPY ( EGD), FLEXIBLE, TRANSORAL, DIAGNOSTIC Pseudocyst of pancreas 12/11/2023 2:39 PM EDT Health Maintenance Due Date Last Done Comments DXA Scan 1940 Depression Screening 1952 Albumin/Creatinine Ratio 1958 DTaP,Tdap,and Td Vaccines (1 - Tdap) 1959 Zoster Vaccines (1 of 2) 1990 Pneumococcal Vaccine: 65+ Years (2 of 2 - PCV) 06/24/2020 06/24/2019 TSH 07/14/2021 07/14/2020, 07/13/2020 COVID-19 Vaccine ( - 2022- season) 2023 05/03/2021, 08/20/2020, 07/23/2020 Influenza Vaccine (FLU shot) (Season Ended) 2024 02/24/2020, 04/02/2018 GFR 11/18/2024 11/19/2023, 06/07/2023, 11/17/2023, Additional history exists GARDASIL-HPV IMMUNIZATION SERIES Aged Out No longer eligible based on patient's age to complete this topic Hepatitis B Aged Out No longer eligi ble based on patient's age to complete this topic MENINGOCOCCAL (MENACTRA/MENVEO) Aged Out No longer eligible based on patient's age to complete this topic documented as of this encounter Medical Devices Implanted Type [employer] Device Identifier Shelf Expiration Date Model / Serial / Lot Stent [employer] [id number] - [id number] Implanted:Qty: 1 on 11/15/2023 by Baljit Fernando MD at OR [facility] [employer] : ENDOSCOPY [id number] 07/04/2024 [id number] / / [id number] Stent Solus And Intro Set - [id number] Implanted:Qty: 1 on 11/15/2023 by Baljit Fernando MD at OR [facility] COOK : YASEMIN CARBAJAL [id number] 08/13/2026 [id number] / / [id number] documented as of this encounter Visit Diagnoses Diagnosis Acute pancreatitis, unspecified complication status, unspecified pancreatitis type- Primary 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 Question Answer Comments Discussion of Advance Directives occurred with: Patient * Full Code Date Activated Date Inactivated Comments 07/13/2020 11:27 AM 07/15/2020 7:12 PM This order reflects the patients wishes and were consensually agreed upon. Care Teams Information Security Analyst Relationship Specialty Start Date End Date Ronnie Claudio DO [address] [place] [address] PCP - General Family Medicine 05/10/20 documented as of this encounter
--- OUTSIDE RECORDS SUMMARY | 2023-12-09 11:07 | External Medical Summary ---
Author Name Unknown Address Unknown Organization K1F:LABORATORY [facility] - [address] [place] [address] Laboratory Report Ordering Provider Test Date Status YAMILETH JAMIL 11/23/2023 04:11:00 Final Observation Date Value Abnormality Reference (Units ) Status BUN 11/23/2023 04:11:00 34 Above high normal 6-20 (mg/dL) Final Creatinine 11/23/2023 04:11:00 1.0 0.5-1.0 (mg/dL) Final Glomerular filtration rate/1.73 sq M.predicted [Volume Rate/Area] in Serum, Plasma or Blood by Creatinine-based formula (CKD-EPI) 11/23/2023 04:11:00 59 Below low normal >=60 (mL/min) Final eGFR is calculated based on the CKD-EPI 2020 equation Sodium 11/23/2023 04:11:00 129 Below low normal 135 -146 (mmol/L) Final Potassium 11/23/2023 04:11:00 4.1 3.5-5.1 (m mol/L) Final Cl 11/23/2023 04:11:00 98 98-107 (mm ol/L) Final CO2 11/23/2023 04:11:00 18 Below low normal 22- 32 (mmol/L) Final Anion gap 11/23/2023 04:11:00 13 7-15 (mmol /L) Final Glucose 11/23/2023 04:11:00 118 70-120 (mg /dL) Final Calcium 11/23/2023 04:11:00 8.1 Below low normal 8.4 -10.2 (mg/dL) Final Performing Location LABORATORY [facility] - [address] [place] [address]
--- OUTSIDE RECORDS SUMMARY | 2023-12-09 11:07 | External Medical Summary ---
Author Name Unknown Address Unknown Organization K01:LABORATORY [facility] - [address] [place] [address] Laboratory Report Ordering Provider Test Date Status NOREEN JUAREZ 11/19/2023 07:48:00 Final Observation Date Value Abnormality Reference (Units ) Status Vitamin B12 11/19/2023 07:48:00 501 407-9927 (pg/mL) Final Performing Location LABORATORY [facility] - [address] [place] [address]
--- OUTSIDE RECORDS SUMMARY | 2023-12-09 11:07 | External Medical Summary ---
Author Name Unknown Address Unknown Organization K1F:LABORATORY [facility] - [address] [place] [address] Laboratory Report Ordering Provider Test Date Status YAMILETH JAMIL 11/20/2023 06:55:00 Final Observation Date Value Abnormality Reference (Units ) Status BUN 11/20/2023 06:55:00 32 Above high normal 6-20 (mg/dL) Final Creatinine 11/20/2023 06:55:00 1.3 Above high normal 0.5-1.0 (mg/dL) Final Glomerular filtration rate/1.73 sq M.predicted [Volume Rate/Area] in Serum, Plasma or Blood by Creatinine-based formula (CKD-EPI) 11/20/2023 06:55:00 42 Below low normal >=60 (mL/min) Final eGFR is calculated based on the CKD-EPI 2020 equation Sodium 11/20/2023 06:55:00 128 Below low normal 135 -146 (mmol/L) Final Potassium 11/20/2023 06:55:00 4.6 3.5-5.1 (m mol/L) Final Cl 11/20/2023 06:55:00 95 Below low normal 98- 107 (mmol/L) Final CO2 11/20/2023 06:55:00 21 Below low normal 22- 32 (mmol/L) Final Anion gap 11/20/2023 06:55:00 12 7-15 (mmol /L) Final Glucose 11/20/2023 06:55:00 103 70-120 (mg /dL) Final Calcium 11/20/2023 06:55:00 8.3 Below low normal 8.4 -10.2 (mg/dL) Final Performing Location LABORATORY [facility] - [address] [place] [address]
--- OUTSIDE RECORDS SUMMARY | 2023-12-09 11:07 | External Medical Summary ---
Author Name Unknown Address Unknown Organization K1F:LABORATORY [facility] - [address] [place] [address] Laboratory Report Ordering Provider Test Date Status YAMILETH JAMIL 11/23/2023 04:11:00 Final Observation Date Value Abnormality Reference (Units ) Status Magnesium 11/23/2023 04:11:00 1.9 1.5-2.6 (m g/dL) Final Performing Location LABORATORY [facility] - [address] [place] [address]
--- OUTSIDE RECORDS SUMMARY | 2023-12-09 11:07 | External Medical Summary ---
Author Name Unknown Address Unknown Organization K1F:LABORATORY [facility] - [address] [place] [address] Laboratory Report Ordering Provider Test Date Status YAMILETH JAMIL 11/22/2023 03:53:00 Final Observation Date Value Abnormality Reference (Units ) Status Phosphate 11/22/2023 03:53:00 2.5 2.5-4.8 (m g/dL) Final Performing Location LABORATORY [facility] - [address] [place] [address]
--- OUTSIDE RECORDS SUMMARY | 2023-12-09 11:07 | External Medical Summary ---
Author Name Unknown Address Unknown Organization K1F:LABORATORY [facility] - [address] [place] [address] Laboratory Report Ordering Provider Test Date Status NOREEN JUAREZ 11/20/2023 01:27:18 Final Observation Date Value Abnormality Reference (Units ) Status Osmolality, Urine 11/20/2023 01:27:18 343 50 -1200 (mOsm/kg) Final Performing Location LABORATORY [facility] - [address] [place] [address]
--- OUTSIDE RECORDS SUMMARY | 2023-12-09 11:07 | External Medical Summary | Summary of Care ---
Author Name Unknown Organization [facility] Address [address] [place] [address] Phone [phone] Care Team Providers Care Photostat Operator Helper Name Role Phone Ronnie Claudio Primary Care Provider + Reason for Referral * Precert (Within 10 days (routine)) - Authorized Specialty Diagnoses / Procedures Referred By Contac t Referred To Contact Radiology Diagnoses Acute pancreatitis, unspecified complication status, unspecified pancreatitis type Procedures CT ABD/PELVIS W IV CONTRAST - WO ORAL CONTRAST Baljit Fernando MD [address] [place] [address] Referral ID Status Reason Start Date Expiration Date V isits Requested Visits Authorized [id number] Authorized 11/29/2023 999 999 Encounter Details Date Type Department Care Team ([facility] Contact Info) Description 11/15/2023 Telephone OR [facility], Operating Room, [facility] - 4th Floor [address] [facility] [place] [address] Baljit Fernando MD [address] [place] [address] Allergies Active Allergy Reactions Criticality Noted Date [...] Tablet by mouth at bedtime. Suspended Creon [id number] UNIT Oral Capsule Delayed Release Particles Take [...] encounter Miscellaneous Notes * Telephone Encounter - Nancy Connor OSA - 11/19/2023 11:21 AM EDT lmm * Telephone Encounter - Baljit Fernando MD - 11/15/2023 4:04 PM EDT Please schedule CT scan in 2-3 weeks and EGD for stent removal in 3-4 weeks with me at [facility]. documented in this encounter Plan of Treatment Scheduled Orders Name Type Priority Associated Diagnoses Orde r Schedule CT ABD/PELVIS W IV CONTRAST - WO ORAL CONTRAST Medical Imaging Routine Acute pancreatitis, unspecified complication status, unspecified pancreatitis type Expected: 11/29/2023, Expires: 12/15/2024 Health Maintenance Due Date Last Done Comments DXA Scan 1940 Depression Screening 1952 Albumin/Creatinine Ratio 1958 DTaP,Tdap,and Td Vaccines (1 - Tdap) 1959 Zoster Vaccines (1 of 2) 1990 Pneumococcal Vaccine: 65+ Years (2 of 2 - PCV) 06/24/2020 06/24/2019 TSH 07/14/2021 07/14/2020, 07/13/2020 COVID-19 Vaccine (4 - 2022- season) 2023 05/03/2021, 08/20/2020, 07/23/2020 [...] this encounter Medical Devices Implanted Type Area Pre K Lead Teacher Device Identifier Shelf Expiration Date Model / Serial / Lot Stent Axios [id number] - [id number] Implanted:Qty: 1 on 11/15/2023 by Baljit Fernando MD at OR [facility] [employer] ENDOSCOPY [id number] 07/04/2024 [id number] / / [id number] Stent Solus And Intro Set - [id number] Implanted:Qty: 1 on 11/15/2023 by Baljit Fernando MD at OR [facility] [employer] : YASEMIN CARBAJAL [id number] 08/13/2026 [id number] / / [id number] documented as of this encounter Visit Diagnoses Diagnosis Acute pancreatitis, unspecified complication status, unspecified pancreatitis type- Primary documented in this encounter Advance Directives * [...] and were consensually agreed upon. Care Teams Photostat Operator Helper Relationship Specialty Start Date End Date Ronnie Claudio DO [facility] [place] [address] PCP - General Family Medicine 05/10/20 documented as of this encounter
--- OUTSIDE RECORDS SUMMARY | 2023-12-09 11:07 | External Medical Summary ---
Author Name Unknown Address Unknown Organization K1F:[facility] - [address] [facility] [place] [address] Laboratory Report Ordering Provider Test Date Status NOREEN JUAREZ 11/22/2023 03:53:00 Final Observation Date Value Abnormality Reference (Units ) Status BUN 11/22/2023 03:53:00 39 Above high normal 6-20 (mg/dL) Final Creatinine 11/22/2023 03:53:00 1.1 Above high normal 0.5-1.0 (mg/dL) Final Glomerular filtration rate/1.73 sq M.predicted [Volume Rate/Area] in Serum, Plasma or Blood by Creatinine-based formula (CKD-EPI) 11/22/2023 03:53:00 49 Below low normal >=60 (mL/min) Final eGFR is calculated based on the CKD-EPI 2020 equation Sodium 11/22/2023 03:53:00 127 Below low normal 135 -146 (mmol/L) Final Potassium 11/22/2023 03:53:00 4.1 3.5-5.1 (m mol/L) Final Cl 11/22/2023 03:53:00 96 Below low normal 98- 107 (mmol/L) Final CO2 11/22/2023 03:53:00 19 Below low normal 22- 32 (mmol/L) Final Anion gap 11/22/2023 03:53:00 12 7-15 (mmol /L) Final Glucose 11/22/2023 03:53:00 105 70-120 (mg /dL) Final Albumin 11/22/2023 03:53:00 2.9 Below low normal 3.8 -5.0 (g/dL) Final AST (Aspartate aminotransferase) 11/22/2023 03:53:00 22 10-35 (U/L) Fin al Alk Phos 11/22/2023 03:53:00 72 35-130 (U/ L) Final Bilirubin, Total 11/22/2023 03:53:00 1.0 <=1 .2 (mg/dL) Final Calcium 11/22/2023 03:53:00 8.0 Below low normal 8.4 -10.2 (mg/dL) Final Protein 11/22/2023 03:53:00 5.3 Below low normal 6.0 -8.3 (g/dL) Final ALT (Alanine aminotransferase) 11/22/2023 03:53:00 14 10-35 (U/L) Joseluis bess [facility] Location LABORATORY [facility] - [address] [place], [place] [address] [place] [address]
--- OUTSIDE RECORDS SUMMARY | 2023-12-09 11:08 | External Medical Summary ---
Author Name Unknown Address Unknown Organization K1F:LABORATORY [facility] - [address] [place] [address] Laboratory Report Ordering Provider Test Date Status YAMILETH JAMIL 11/19/2023 04:12:00 Final Observation Date Value Abnormality Reference (Units ) Status Phosphate 11/19/2023 04:12:00 4.4 2.5-4.8 (m g/dL) Final Performing Location LABORATORY [facility] - [address] [place] [address]
--- OUTSIDE RECORDS SUMMARY | 2023-12-09 11:08 | External Medical Summary ---
Author Name Unknown Address Unknown Organization K1F:LABORATORY [facility] - [address] [place] [address] Laboratory Report Ordering Provider Test Date Status YAMILETH JAMIL 11/16/2023 04:36:00 Final Observation Date Value Abnormality Reference (Units ) Status Phosphate 11/16/2023 04:36:00 3.0 2.5-4.8 (m g/dL) Final Performing Location LABORATORY [facility] - [address] [place] [address]
--- OUTSIDE RECORDS SUMMARY | 2023-12-09 11:08 | External Medical Summary ---
Author Name Unknown Address Unknown Organization K1F:LABORATORY [facility] - [address] [place] [address] Laboratory Report Ordering Provider Test Date Status YAMILETH JAMIL 11/19/2023 04:12:00 Final Observation Date Value Abnormality Reference (Units ) Status Magnesium 11/19/2023 04:12:00 2.1 1.5-2.6 (m g/dL) Final Performing Location LABORATORY [facility] - [address] [place] [address]
--- OUTSIDE RECORDS SUMMARY | 2023-12-09 11:08 | External Medical Summary ---
Author Name Unknown Address Unknown Organization K1F:LABORATORY [facility] - [address] [place] [address] Laboratory Report Ordering Provider Test Date Status YAMILETH JAMIL 11/15/2023 04:36:00 Final Observation Date Value Abnormality Reference (Units ) Status Magnesium 11/15/2023 04:36:00 2.3 1.5-2.6 (m g/dL) Final Performing Location LABORATORY [facility] - [address] [place] [address]
--- OUTSIDE RECORDS SUMMARY | 2023-12-09 11:08 | External Medical Summary ---
Author Name Unknown Address Unknown Organization K1F:LABORATORY [facility] - [address] [place] [address] Laboratory Report Ordering Provider Test Date Status JAIR HOOD 11/13/2023 15:02:00 Final Observation Date Value Abnormality Reference (Units ) Status BUN 11/13/2023 15:02:00 29 Above high normal 6-20 (mg/dL) Final Creatinine 11/13/2023 15:02:00 0.9 0.5-1.0 (mg/dL) Final Glomerular filtration rate/1.73 sq M.predicted [Volume Rate/Area] in Serum, Plasma or Blood by Creatinine-based formula (CKD-EPI) 11/13/2023 15:02:00 63 >=60 (mL/min) Final eGFR is calculated based on the CKD-EPI 2020 equation Sodium 11/13/2023 15:02:00 134 Below low normal 135 -146 (mmol/L) Final Potassium 11/13/2023 15:02:00 3.9 3.5-5.1 (m mol/L) Final Cl 11/13/2023 15:02:00 100 98-107 (mm ol/L) Final CO2 11/13/2023 15:02:00 23 22-32 (mmo l/L) Final Anion gap 11/13/2023 15:02:00 11 7-15 (mmol /L) Final Glucose 11/13/2023 15:02:00 116 70-120 (mg /dL) Final Albumin 11/13/2023 15:02:00 3.2 Below low normal 3.8 -5.0 (g/dL) Final AST (Aspartate aminotransferase) 11/13/2023 15:02:00 24 10-35 (U/L) Fin al Alk Phos 11/13/2023 15:02:00 75 35-130 (U/ L) Final Bilirubin, Total 11/13/2023 15:02:00 0.5 <=1 .2 (mg/dL) Final Calcium 11/13/2023 15:02:00 8.2 Below low normal 8.4 -10.2 (mg/dL) Final Protein 11/13/2023 15:02:00 6.0 6.0-8.3 (g /dL) Final ALT (Alanine aminotransferase) 11/13/2023 15:02:00 12 10-35 (U/L) Joseluis bess Performing Location LABORATORY [address] [place] [address]
--- OUTSIDE RECORDS SUMMARY | 2023-12-09 11:08 | External Medical Summary ---
Author Name Unknown Address Unknown Organization K1F:LABORATORY [facility] - [address] [place] [address] Laboratory Report Ordering Provider Test Date Status YAMILETH JAMIL 11/18/2023 04:44:00 Final Observation Date Value Abnormality Reference (Units ) Status Magnesium 11/18/2023 04:44:00 2.1 1.5-2.6 (m g/dL) Final Performing Location LABORATORY [facility] - [address] [place] [address]
--- OUTSIDE RECORDS SUMMARY | 2023-12-09 11:08 | External Medical Summary ---
Author Name Unknown Address Unknown Organization K1F:LABORATORY [facility] - [address] [place] [address] Laboratory Report Ordering Provider Test Date Status YAMILETH JAMIL 11/18/2023 04:44:00 Final Observation Date Value Abnormality Reference (Units ) Status WBC, Total 11/18/2023 04:44:00 7.47 4.00-10.80 (K/uL) Final RBC 11/18/2023 04:44:00 2.38 3.85-5.15 (M/uL) Final Hemoglobin 11/18/2023 04:44:00 7.4 Below low normal 12.0-15.3 (g/dL) Final HCT 11/18/2023 04:44:00 21.8 Below low normal 36.0-45.2 (%) Final MCV 11/18/2023 04:44:00 91.6 81.5-97.5 (fL) Final MCH 11/18/2023 04:44:00 31.1 27.0-34.0 (pg) Final MCHC 11/18/2023 04:44:00 33.9 32.0-36.0 (g/dL) Final RDW 11/18/2023 04:44:00 15.3 11.5-15.5 (%) Final Platelets 11/18/2023 04:44:00 52 Below low normal 140-400 (K/uL) Final MPV 11/18/2023 04:44:00 11.4 6.6-11.1 (fL) Final Nucleated erythrocytes/100 leukocytes [Ratio] in Blood by Automated count 11/18/2023 04:44:00 0 <=0 (/100 WBCs) Final Performing Location LABORATORY [facility] - [address] [place] [address]
--- OUTSIDE RECORDS SUMMARY | 2023-12-09 11:08 | External Medical Summary ---
Author Name Unknown Address Unknown Organization K1F:LABORATORY [facility] - [address] [place] [address] Laboratory Report Ordering Provider Test Date Status YAMILETH JAMIL 11/17/2023 05:40:00 Final Observation Date Value Abnormality Reference (Units ) Status BUN 11/17/2023 05:40:00 29 Above high normal 6-20 (mg/dL) Final Creatinine 11/17/2023 05:40:00 0.9 0.5-1.0 (mg/dL) Final Glomerular filtration rate/1.73 sq M.predicted [Volume Rate/Area] in Serum, Plasma or Blood by Creatinine-based formula (CKD-EPI) 11/17/2023 05:40:00 63 >=60 (mL/min) Final eGFR is calculated based on the CKD-EPI 2020 equation Sodium 11/17/2023 05:40:00 130 Below low normal 135 -146 (mmol/L) Final Potassium 11/17/2023 05:40:00 5.0 3.5-5.1 (m mol/L) Final Cl 11/17/2023 05:40:00 96 Below low normal 98- 107 (mmol/L) Final CO2 11/17/2023 05:40:00 21 Below low normal 22- 32 (mmol/L) Final Anion gap 11/17/2023 05:40:00 13 7-15 (mmol /L) Final Glucose 11/17/2023 05:40:00 114 70-120 (mg /dL) Final Calcium 11/17/2023 05:40:00 8.1 Below low normal 8.4 -10.2 (mg/dL) Final Performing Location LABORATORY [facility] - [address] [place] [address]
--- OUTSIDE RECORDS SUMMARY | 2023-12-09 11:08 | External Medical Summary ---
Author Name Unknown Address Unknown Organization K1F:LABORATORY [facility] - [address] [place] [address] Laboratory Report Ordering Provider Test Date Status SANAJAIR 11/14/2023 05:30:00 Final Observation Date Value Abnormality Reference (Units ) Status Phosphate 11/14/2023 05:30:00 2.6 2.5-4.8 (m g/dL) Final Performing Location LABORATORY [facility] - [address] [place] [address]
--- OUTSIDE RECORDS SUMMARY | 2023-12-09 11:08 | External Medical Summary ---
Author Name Unknown Address Unknown Organization K1F:LABORATORY [facility] [place] [address] Laboratory Report Ordering Provider Test Date Status NOREEN JUAREZ 11/16/2023 04:36:00 Final Observation Date Value Abnormality Reference (Units ) Status WBC, Total 11/16/2023 04:36:00 5.24 4.00-10.80 (K/uL) Final RBC 11/16/2023 04:36:00 2.73 3.85-5.15 (M/uL) Final Hemoglobin 11/16/2023 04:36:00 8.2 Below low normal 12.0-15.3 (g/dL) Final HCT 11/16/2023 04:36:00 25.4 Below low normal 36.0-45.2 (%) Final MCV 11/16/2023 04:36:00 93.0 81.5-97.5 (fL) Final MCH 11/16/2023 04:36:00 30.0 27.0-34.0 (pg) Final MCHC 11/16/2023 04:36:00 32.3 32.0-36.0 (g/dL) Final RDW 11/16/2023 04:36:00 14.7 11.5-15.5 (%) Final Platelets 11/16/2023 04:36:00 57 Below low normal 140-400 (K/uL) Final MPV 11/16/2023 04:36:00 11.9 6.6-11.1 (fL) Final Nucleated erythrocytes/100 leukocytes [Ratio] in Blood by Automated count 11/16/2023 04:36:00 0 <=0 (/100 WBCs) Final Performing Location LABORATORY [facility] - [address] [place] [address]
--- OUTSIDE RECORDS SUMMARY | 2023-12-09 11:08 | External Medical Summary ---
Author Name Unknown Address Unknown Organization K1F:LABORATORY [facility] - [address] [place] [address] Laboratory Report Ordering Provider Test Date Status JAIR HOOD 11/14/2023 05:30:00 Final Observation Date Value Abnormality Reference (Units ) Status BUN 11/14/2023 05:30:00 26 Above high normal 6-20 (mg/dL) Final Creatinine 11/14/2023 05:30:00 0.9 0.5-1.0 (mg/dL) Final Glomerular filtration rate/1.73 sq M.predicted [Volume Rate/Area] in Serum, Plasma or Blood by Creatinine-based formula (CKD-EPI) 11/14/2023 05:30:00 62 >=60 (mL/min) Final eGFR is calculated based on the CKD-EPI 2020 equation Sodium 11/14/2023 05:30:00 136 135-146 (m mol/L) Final Potassium 11/14/2023 05:30:00 4.0 3.5-5.1 (m mol/L) Final Cl 11/14/2023 05:30:00 103 98-107 (mm ol/L) Final CO2 11/14/2023 05:30:00 21 Below low normal 22- 32 (mmol/L) Final Anion gap 11/14/2023 05:30:00 12 7-15 (mmol /L) Final Glucose 11/14/2023 05:30:00 106 70-120 (mg /dL) Final Albumin 11/14/2023 05:30:00 2.8 Below low normal 3.8 -5.0 (g/dL) Final AST (Aspartate aminotransferase) 11/14/2023 05:30:00 17 10-35 (U/L) Fin al Alk Phos 11/14/2023 05:30:00 68 35-130 (U/ L) Final Bilirubin, Total 11/14/2023 05:30:00 0.5 <=1 .2 (mg/dL) Final Calcium 11/14/2023 05:30:00 7.6 Below low normal 8.4 -10.2 (mg/dL) Final Protein 11/14/2023 05:30:00 5.0 Below low normal 6.0 -8.3 (g/dL) Final ALT (Alanine aminotransferase) 11/14/2023 05:30:00 11 10-35 (U/L) Joseluis bess Performing Location LABORATORY [facility] - [address] [place] [address] [place] [address]
--- OUTSIDE RECORDS SUMMARY | 2023-12-09 11:08 | External Medical Summary ---
Author Name Unknown Address Unknown Organization K1F:LABORATORY [facility] - [address] [place] [address] Laboratory Report Ordering Provider Test Date Status JAIR HOOD 11/13/2023 15:02:00 Final Observation Date Value Abnormality Reference (Units ) Status WBC, Total 11/13/2023 15:02:00 8.07 4.00-10.80 (K/uL) Final RBC 11/13/2023 15:02:00 3.19 3.85-5.15 (M/uL) Final Hemoglobin 11/13/2023 15:02:00 9.5 Below low normal 12.0-15.3 (g/dL) Final HCT 11/13/2023 15:02:00 29.2 Below low normal 36.0-45.2 (%) Final MCV 11/13/2023 15:02:00 91.5 81.5-97.5 (fL) Final MCH 11/13/2023 15:02:00 29.8 27.0-34.0 (pg) Final MCHC 11/13/2023 15:02:00 32.5 32.0-36.0 (g/dL) Final RDW 11/13/2023 15:02:00 14.5 11.5-15.5 (%) Final Platelets 11/13/2023 15:02:00 73 Below low normal 140-400 (K/uL) Final MPV 11/13/2023 15:02:00 11.2 6.6-11.1 (fL) Final Nucleated erythrocytes/100 leukocytes [Ratio] in Blood by Automated count 11/13/2023 15:02:00 0 <=0 (/100 WBCs) Final Performing Location LABORATORY [facility] - [address] [place] [address]
--- OUTSIDE RECORDS SUMMARY | 2023-12-09 11:08 | External Medical Summary ---
Author Name Unknown Address Unknown Organization K1F:LABORATORY [facility] - [address] [facility] [place] [address] Laboratory Report Ordering Provider Test Date Status AMALIA JEROME 11/15/2023 04:36:00 Final Observation Date Value Abnormality Reference (Units ) Status SYNC LEUKOCYTES IN BLOOD BY AUTOMATED COUNT 11/15/2023 04:36:00 5.46 4.00-10.80 (K/uL) Final Segs 11/15/2023 04:36:00 77.7 Above high normal 40.0-75.0 (%) Final Lymphs % 11/15/2023 04:36:00 8.4 Below low normal 18.0-42.0 (%) Final Monos 11/15/2023 04:36:00 10.3 1.0-11.0 (%) Final Eosinophils 11/15/2023 04:36:00 2.7 0.0-6.0 (%) Final Basos 11/15/2023 04:36:00 0.4 0.0-2.0 (%) Final Immature Granulocyte, Percent 11/15/2023 04:36:00 0.5 0.0-2.0 (%) Final Absolute Segs 11/15/2023 04:36:00 4.24 1.80-7.70 (K/uL) Final Lymphs, absolute 11/15/2023 04:36:00 0.46 Below low normal 1.00-4.80 (K/ul) Final Monos, Abs 11/15/2023 04:36:00 0.56 0.00-1.10 (K/uL) Final Eos, Abs 11/15/2023 04:36:00 0.15 0.00-0.70 (K/uL) Final Basos, Abs 11/15/2023 04:36:00 0.02 0.00-0.20 (K/uL) Final Immature Granulocytes, Number 11/15/2023 04:36:00 0.03 0.00-0.20 (K/uL) Final Performing Location LABORATORY [facility] - [facility] [address] [place] [address]
--- OUTSIDE RECORDS SUMMARY | 2023-12-09 11:08 | External Medical Summary ---
Author Name Unknown Address Unknown Organization K1F:LABORATORY [facility] - [address] [place] [address] Laboratory Report Ordering Provider Test Date Status YAMILETH JAMIL 11/17/2023 05:40:00 Final Observation Date Value Abnormality Reference (Units ) Status Magnesium 11/17/2023 05:40:00 2.4 1.5-2.6 (m g/dL) Final Performing Location LABORATORY [facility] - [address] [place] [address]
--- OUTSIDE RECORDS SUMMARY | 2023-12-09 11:08 | External Medical Summary ---
Author Name Unknown Address Unknown Organization K01:LABORATORY [facility] - [address] [place] [address] Laboratory Report Ordering Provider Test Date Status LARRYCORNELIOALEYDASTEPHANIE 11/19/2023 07:48:00 Final Observation Date Value Abnormality Reference (Units ) Status Iron 11/19/2023 07:48:00 30 Below low normal 33-151 (ug/dL) Final Iron-binding capacity 11/19/2023 07:48:00 164 Below low normal 250-425 (ug/dL) Final Transferrin Sat % 11/19/2023 07:48:00 18 15-55 (%) Final Performing Location LABORATORY [facility] - [address] [place] [address]
--- OUTSIDE RECORDS SUMMARY | 2023-12-09 11:08 | External Medical Summary | Summary of Care ---
Author Name Unknown Organization [facility] Address [address] [place] [address] Phone [phone] Care Team Providers Care Beam Department Supervisor Name Role Phone Ronnie Claudio Primary Care Provider + Reason for Referral * Precert (Within 10 days (routine)) - Authorized Specialty Diagnoses / Procedures Referred By Contac t Referred To Contact Radiology Diagnoses Acute pancreatitis, unspecified complication status, unspecified pancreatitis type Procedures CT ABD/PELVIS W IV CONTRAST - WO ORAL CONTRAST Baljit Fernando MD [address] [place] [address] Referral ID Status Reason Start Date Expiration Date V isits Requested Visits Authorized [id number] Authorized 11/29/2023 999 999 Encounter Details Date Type Department Care Team ([facility] Contact Info) Description 11/15/2023 Telephone OR [facility], Operating Room, [facility] - 4th Floor [address] [facility] [place] [address] Baljit Fernando MD [address] [place] [address] Allergies Active Allergy Reactions Criticality Noted Date Comments Sulfamethoxazole-Trimethoprim Nausea/vomiting High 1 documented as of this encounter (statuses as of 11/16/2023) Medications Medication Sig Dispensed Refills Start Date [...] Capsule Take 1,000 mg by mouth daily. Suspended Coenzyme Q10 100 MG Oral Capsule Take 1 Capsule by mouth in the morning. Suspended Citracal Petites/Vitamin D 200-250 MG-UNIT Oral Tablet (Calcium Citrate-Vitamin D) Take 1 Tab by mouth 2 times a day. Suspended Carvedilol 25 MG Oral Tablet (Coreg)Indications :SBP > 145 mm Hg Take 1 Tablet [...] mouth in the morning. Suspended oxyBUTYnin Chloride 2.5 MG Oral Tablet Take 5 mg by mouth at bedtime. Suspended Creon 6000-36098 UNIT Oral Capsule Delayed Release Particles Take [...] as of this encounter (statuses as of 11/16/2023) Active Problems Problem Noted Date Diagnosed Date Malnutrition of moderate degree 11/14/2023 Chronic idiopathic [...] as of this encounter (statuses as of 11/16/2023) Resolved Problems Problem Noted Date Diagnosed Date Resolved Date UTI (urinary tract infection) 11/13/2023 11/14/2023 documented as of this encounter (statuses as of 11/16/2023) Immunizations Name Administration Dates Next Due COVID-19 [...] encounter Miscellaneous Notes * Telephone Encounter - Baljit Fernando MD - 11/15/2023 4:04 PM EDT Please schedule CT scan in 2-3 weeks and EGD for stent removal in 3-4 weeks with me at [facility]. documented in this encounter Plan of [...] shot) (Season Ended) 2024 02/24/2020, 04/02/2018 GFR 11/15/2024 11/16/2023, 10/18, 11/14/2023, Additional history exists GARDASIL-HPV IMMUNIZATION SERIES Aged Out No longer eligible based on patient's age to complete this topic Hepatitis B Aged Out No longer eligi ble based on patient's age to complete this topic MENINGOCOCCAL (MENACTRA/MENVEO) Aged Out No longer eligible based on patient's age to complete this topic documented as of this encounter Medical Devices Implanted Type Area Pre Sales Systems Engineer Device Identifier Shelf Expiration Date Model / Serial / Lot Stent Axios [id number] - [id number] Implanted:Qty: 1 on 11/15/2023 by Baljit Fernando MD at OR [facility] [employer] ENDOSCOPY [id number] 07/04/2024 [id number] / / [id number] Stent Solus And Intro Set - [id number] Implanted:Qty: 1 on 11/15/2023 by Baljit Fernando MD at OR [facility] COOK : YASEMIN CARBAJAL [id number] 08/13/2026 [id number] / / [id number] documented as of this encounter Visit Diagnoses [...] and were consensually agreed upon. Care Teams Beam Department Supervisor Relationship Specialty Start Date End Date Ronnie Claudio DO [address] [place] [address] PCP - General Family Medicine 05/10/20 documented as of this encounter
--- OUTSIDE RECORDS SUMMARY | 2023-12-09 11:08 | External Medical Summary ---
Author Name Unknown Address Unknown Organization K1F:LABORATORY [facility] - [facility] [address] [place] [address] Laboratory Report Ordering Provider Test Date Status AMALIA JEROME 11/15/2023 04:36:00 Final Observation Date Value Abnormality Reference (Units ) Status WBC, Total 11/15/2023 04:36:00 5.46 4.00-10.80 (K/uL) Final RBC 11/15/2023 04:36:00 2.62 3.85-5.15 (M/uL) Final Hemoglobin 11/15/2023 04:36:00 7.9 Below low normal 12.0-15.3 (g/dL) Final HCT 11/15/2023 04:36:00 24.2 Below low normal 36.0-45.2 (%) Final MCV 11/15/2023 04:36:00 92.4 81.5-97.5 (fL) Final MCH 11/15/2023 04:36:00 30.2 27.0-34.0 (pg) Final MCHC 11/15/2023 04:36:00 32.6 32.0-36.0 (g/dL) Final RDW 11/15/2023 04:36:00 14.7 11.5-15.5 (%) Final Platelets 11/15/2023 04:36:00 52 Below low normal 140-400 (K/uL) Final MPV 11/15/2023 04:36:00 11.7 6.6-11.1 (fL) Final Nucleated erythrocytes/100 leukocytes [Ratio] in Blood by Automated count 11/15/2023 04:36:00 0 <=0 (/100 WBCs) Final Performing Location LABORATORY [facility] - [address] [place] [address]
--- OUTSIDE RECORDS SUMMARY | 2023-12-09 11:08 | External Medical Summary ---
Author Name Unknown Address Unknown Organization K1F:LABORATORY [facility] - [address] [place] [address] Laboratory Report Ordering Provider Test Date Status JAIR HOOD 11/13/2023 15:02:00 Final Anticoagulation may affect t esting. Refer to [facility] Test Catalog for a list of effects. Observation Date Value Abnormality Reference (Units ) Status aPTT panel - Platelet poor plasma 11/13/2023 15:02:00 31 21-38 (seconds) Final Performing Location LABORATORY [facility] - [address] [place] [address]
--- OUTSIDE RECORDS SUMMARY | 2023-12-09 11:08 | External Medical Summary ---
Author Name Unknown Address Unknown Organization K1F:LABORATORY [facility] - [address] [place] [address] Laboratory Report Ordering Provider Test Date Status YAMILETH JAMIL 11/15/2023 04:36:00 Final Observation Date Value Abnormality Reference (Units ) Status BUN 11/15/2023 04:36:00 23 Above high normal 6-20 (mg/dL) Final Creatinine 11/15/2023 04:36:00 0.9 0.5-1.0 (mg/dL) Final Glomerular filtration rate/1.73 sq M.predicted [Volume Rate/Area] in Serum, Plasma or Blood by Creatinine-based formula (CKD-EPI) 11/15/2023 04:36:00 65 >=60 (mL/min) Final eGFR is calculated based on the CKD-EPI 2020 equation Sodium 11/15/2023 04:36:00 135 135-146 (m mol/L) Final Potassium 11/15/2023 04:36:00 4.2 3.5-5.1 (m mol/L) Final Cl 11/15/2023 04:36:00 102 98-107 (mm ol/L) Final CO2 11/15/2023 04:36:00 25 22-32 (mmo l/L) Final Anion gap 11/15/2023 04:36:00 8 7-15 (mmol /L) Final Glucose 11/15/2023 04:36:00 122 Above high normal 70 -120 (mg/dL) Final Calcium 11/15/2023 04:36:00 8.1 Below low normal 8.4 -10.2 (mg/dL) Final Performing Location LABORATORY [facility] - [address] [facility] [place] [address]
--- OUTSIDE RECORDS SUMMARY | 2023-12-09 11:08 | External Medical Summary ---
Author Name Unknown Address Unknown Organization K1F:LABORATORY [facility] - [address] [place] [address] Laboratory Report Ordering Provider Test Date Status YAMILETH JAMIL 11/17/2023 05:40:00 Final Observation Date Value Abnormality Reference (Units ) Status Phosphate 11/17/2023 05:40:00 3.6 2.5-4.8 (m g/dL) Final Performing Location LABORATORY [facility] - [address] [place] [address]
--- OUTSIDE RECORDS SUMMARY | 2023-12-09 11:08 | External Medical Summary | Summary of Care ---
Author Name Unknown Organization [facility] Address [address] [place] [address] Phone [phone] Care Team Providers Care Cuprous Chloride Operator Name Role Phone Ronnie Claudio Primary Care Provider + Reason for Referral * Precert (Within 10 days (routine)) - Authorized Specialty Diagnoses / Procedures Referred By Contac t Referred To Contact Radiology Diagnoses Acute pancreatitis, unspecified complication status, unspecified pancreatitis type Procedures CT ABD/PELVIS W IV CONTRAST - WO ORAL CONTRAST Baljit Fernando MD [address] [place] [address] Referral ID Status Reason Start Date Expiration Date V isits Requested Visits Authorized [id number] Authorized 11/29/2023 999 999 Encounter Details Date Type Department Care Team ([facility] st Contact Info) Description 11/15/2023 Telephone OR [facility], Operating Room, [facility] - 4th Floor [address] [facility] [place] [address] Baljit Fernando MD [address] [place] [address] Allergies Active Allergy Reactions Criticality Noted Date Comments Sulfamethoxazole-Trimethoprim Nausea/vomiting High 1 documented as of this encounter (statuses as of 11/15/2023) Medications Medication Sig Dispensed Refills Start Date [...] mg by mouth at bedtime. Suspended Creon [id number] UNIT Oral Capsule Delayed Release Particles Take [...] as of this encounter (statuses as of 11/15/2023) Active Problems Problem Noted Date Diagnosed Date [...] as of this encounter (statuses as of 11/15/2023) Resolved Problems Problem Noted Date Diagnosed Date Resolved Date UTI (urinary tract infection) 11/13/2023 11/14/2023 documented as of this encounter (statuses as of 11/15/2023) Immunizations Name Administration Dates Next Due COVID-19 [...] removal in 3-4 weeks with me at [facility]. documented in this encounter Plan of Treatment Scheduled Orders Name Type Priority Associated Diagnoses Orde r Schedule CT ABD/PELVIS W IV CONTRAST - WO ORAL CONTRAST Medical Imaging Routine Acute pancreatitis, unspecified complication status, unspecified pancreatitis type Expected: 11/29/2023, Expires: 12/15/2024 Scheduled Procedures Name Priority Associated Diagnoses Date/Ti me ESOPHAGOGASTRODUODENOSCOPY ( EGD), FLEXIBLE, TRANSORAL, ENDOSCOPIC ULTRASOUND Pancreatitis Pancreatic pseudocyst/cyst 11/15/2023 2:57 PM EDT ESOPHAGOGASTRODUODENOSCOPY ( EGD), FLEXIBLE, TRANSORAL, WITH DRAINAGE PSEUDOCYST Pancreatitis Pancreatic pseudocyst/cyst 11/15/2023 2:57 PM EDT Health Maintenance Due Date Last [...] shot) (Season Ended) 2024 02/24/2020, 04/02/2018 GFR 11/14/2024 11/15/2023, 10/17, 11/13/2023, Additional history exists GARDASIL-HPV IMMUNIZATION SERIES Aged Out No longer eligible based on patient's age to complete this topic Hepatitis B Aged Out No longer eligi ble based on patient's age to complete this topic MENINGOCOCCAL (MENACTRA/MENVEO) Aged Out No longer eligible based on patient's age to complete this topic documented as of this encounter Medical Devices Implanted Type Area Paper Wrapping Machine Operator Device Identifier Shelf Expiration Date Model / Serial / Lot Stent Axios [id number] - [id number] Implanted:Qty: 1 on 11/15/2023 by Baljit Fernando MD at OR [facility] [employer] : ENDOSCOPY [id number] 07/04/2024 [id number] / / [id number] Stent Solus And Intro Set - [id number] Implanted:Qty: 1 on 11/15/2023 by Baljit Fernando MD at OR [facility] COOK : YASEMIN CARBAJAL [id number] 08/13/2026 [id number] / / [id number] documented as of this encounter Visit Diagnoses [...] and were consensually agreed upon. Care Teams Cuprous Chloride Operator Relationship Specialty Start Date End Date Ronnie Claudio DO [facility] [place] [address] PCP - General Family Medicine 05/10/20 documented as of this encounter
--- OUTSIDE RECORDS SUMMARY | 2023-12-09 11:08 | External Medical Summary ---
Author Name Unknown Address Unknown Organization K1F:LABORATORY [facility] - [address] [place] [address] Laboratory Report Ordering Provider Test Date Status NOREEN JUAREZ 11/19/2023 04:12:00 Final Observation Date Value Abnormality Reference (Units ) Status Retic, % (auto) 11/19/2023 04:12:00 4.10 Above high normal 0.80-1.90 (%) Final Reticulocytes, Absolute 11/19/2023 04:12:00 94.3 31.3-100.1 (K/uL) Final Reticulocyte fraction, immature 11/19/2023 04:12:00 23.6 Above high normal 2.5-20.6 (%) Final Reticulocyte HGB 11/19/2023 04:12:00 30.7 29.7-37.4 (pg) Final Performing Location LABORATORY [facility] - [address] [place] [address]
--- OUTSIDE RECORDS SUMMARY | 2023-12-09 11:08 | External Medical Summary ---
Author Name Unknown Address Unknown Organization K1F:LABORATORY [facility] - [address] [place] [address] Laboratory Report Ordering Provider Test Date Status YAMILETH JAMIL 11/19/2023 04:12:00 Final Observation Date Value Abnormality Reference (Units ) Status WBC, Total 11/19/2023 04:12:00 6.22 4.00-10.80 (K/uL) Final RBC 11/19/2023 04:12:00 2.33 3.85-5.15 (M/uL) Final Hemoglobin 11/19/2023 04:12:00 7.1 Below low normal 12.0-15.3 (g/dL) Final HCT 11/19/2023 04:12:00 21.3 Below low normal 36.0-45.2 (%) Final MCV 11/19/2023 04:12:00 91.4 81.5-97.5 (fL) Final MCH 11/19/2023 04:12:00 30.5 27.0-34.0 (pg) Final MCHC 11/19/2023 04:12:00 33.3 32.0-36.0 (g/dL) Final RDW 11/19/2023 04:12:00 15.1 11.5-15.5 (%) Final Platelets 11/19/2023 04:12:00 46 Below low normal 140-400 (K/uL) Final MPV 11/19/2023 04:12:00 11.2 6.6-11.1 (fL) Final Nucleated erythrocytes/100 leukocytes [Ratio] in Blood by Automated count 11/19/2023 04:12:00 0 <=0 (/100 WBCs) Final Performing Location LABORATORY [facility] - [address] [place] [address]
--- OUTSIDE RECORDS SUMMARY | 2023-12-09 11:08 | External Medical Summary ---
Author Name Unknown Address Unknown Organization K1F:LABORATORY [facility] - [address] [place] [address] Laboratory Report Ordering Provider Test Date Status YAMILETH JAMIL 11/15/2023 04:36:00 Final Observation Date Value Abnormality Reference (Units ) Status Phosphate 11/15/2023 04:36:00 2.7 2.5-4.8 (m g/dL) Final Performing Location LABORATORY [facility] - [address] [place] [address]
--- OUTSIDE RECORDS SUMMARY | 2023-12-09 11:08 | External Medical Summary ---
Author Name Unknown Address Unknown Organization K1F:LABORATORY [facility] - [address] [place] [address] Laboratory Report Ordering Provider Test Date Status YAMILETH JAMIL 11/19/2023 04:12:00 Final Observation Date Value Abnormality Reference (Units ) Status BUN 11/19/2023 04:12:00 29 Above high normal 6-20 (mg/dL) Final Creatinine 11/19/2023 04:12:00 1.0 0.5-1.0 (mg/dL) Final Glomerular filtration rate/1.73 sq M.predicted [Volume Rate/Area] in Serum, Plasma or Blood by Creatinine-based formula (CKD-EPI) 11/19/2023 04:12:00 55 Below low normal >=60 (mL/min) Final eGFR is calculated based on the CKD-EPI 2020 equation Sodium 11/19/2023 04:12:00 128 Below low normal 135 -146 (mmol/L) Final Potassium 11/19/2023 04:12:00 4.8 3.5-5.1 (m mol/L) Final Cl 11/19/2023 04:12:00 96 Below low normal 98- 107 (mmol/L) Final CO2 11/19/2023 04:12:00 20 Below low normal 22- 32 (mmol/L) Final Anion gap 11/19/2023 04:12:00 12 7-15 (mmol /L) Final Glucose 11/19/2023 04:12:00 116 70-120 (mg /dL) Final Calcium 11/19/2023 04:12:00 8.4 8.4-10.2 ( mg/dL) Final Performing Location LABORATORY [facility] - [address] [place] [address]
--- OUTSIDE RECORDS SUMMARY | 2023-12-09 11:08 | External Medical Summary ---
Author Name Unknown Address Unknown Organization K1F:LABORATORY [facility] - [address] [place] [address] Laboratory Report Ordering Provider Test Date Status NOREEN JUAREZ 11/19/2023 07:48:00 Final Observation Date Value Abnormality Reference (Units ) Status Osmolality 11/19/2023 07:48:00 277 Below low normal 27 8-305 (mOsm/kg) Final Performing Location LABORATORY [facility] - [address] [place] [address]
--- OUTSIDE RECORDS SUMMARY | 2023-12-09 11:08 | External Medical Summary ---
Author Name Unknown Address Unknown Organization K1F:LABORATORY [facility] - [address] [place] [address] Laboratory Report Ordering Provider Test Date Status JAIR HOOD 11/14/2023 05:30:00 Final Observation Date Value Abnormality Reference (Units ) Status WBC, Total 11/14/2023 05:30:00 5.87 4.00-10.80 (K/uL) Final RBC 11/14/2023 05:30:00 2.68 3.85-5.15 (M/uL) Final Hemoglobin 11/14/2023 05:30:00 8.1 Below low normal 12.0-15.3 (g/dL) Final HCT 11/14/2023 05:30:00 25.0 Below low normal 36.0-45.2 (%) Final MCV 11/14/2023 05:30:00 93.3 81.5-97.5 (fL) Final MCH 11/14/2023 05:30:00 30.2 27.0-34.0 (pg) Final MCHC 11/14/2023 05:30:00 32.4 32.0-36.0 (g/dL) Final RDW 11/14/2023 05:30:00 14.8 11.5-15.5 (%) Final Platelets 11/14/2023 05:30:00 54 Below low normal 140-400 (K/uL) Final MPV 11/14/2023 05:30:00 11.6 6.6-11.1 (fL) Final Nucleated erythrocytes/100 leukocytes [Ratio] in Blood by Automated count 11/14/2023 05:30:00 0 <=0 (/100 WBCs) Final Performing Location LABORATORY [facility] - [address] [place] [address]
--- OUTSIDE RECORDS SUMMARY | 2023-12-09 11:08 | External Medical Summary ---
Author Name Unknown Address Unknown Organization K1F:LABORATORY [facility] - [address] [place] [address] Laboratory Report Ordering Provider Test Date Status YAMILETH JAMIL 11/15/2023 04:36:00 Final Observation Date Value Abnormality Reference (Units ) Status Calcium.ionized [Moles/volume] in Serum or Plasma by Ion-selective membrane electrode (ISE) 11/15/2023 04:36:00 1.16 1.13-1.32 (mmol/L) Final This test was developed and its performance characteristics dtermined by As Seen on TV. It has not been cleared or approved by the [place] Food and Drug Administration Performing Location LABORATORY [facility] - [address] [place] [address]
--- OUTSIDE RECORDS SUMMARY | 2023-12-09 11:08 | External Medical Summary ---
Author Name Unknown Address Unknown Organization K1F:LABORATORY [facility] - [address] [place] [address] Laboratory Report Ordering Provider Test Date Status NOREEN JUAREZ 11/19/2023 04:12:00 Final Observation Date Value Abnormality Reference (Units ) Status Albumin 11/19/2023 04:12:00 2.5 Below low normal 3.8 -5.0 (g/dL) Final Performing Location LABORATORY [facility] - [address] [place] [address]
--- OUTSIDE RECORDS SUMMARY | 2023-12-09 11:08 | External Medical Summary ---
Author Name Unknown Address Unknown Organization K1F:LABORATORY [facility] - [address] [place] [address] Laboratory Report Ordering Provider Test Date Status YAMILETH JAMIL 11/16/2023 04:36:00 Final Observation Date Value Abnormality Reference (Units ) Status BUN 11/16/2023 04:36:00 22 Above high normal 6-20 (mg/dL) Final Creatinine 11/16/2023 04:36:00 0.8 0.5-1.0 (mg/dL) Final Glomerular filtration rate/1.73 sq M.predicted [Volume Rate/Area] in Serum, Plasma or Blood by Creatinine-based formula (CKD-EPI) 11/16/2023 04:36:00 73 >=60 (mL/min) Final eGFR is calculated based on the CKD-EPI 2020 equation Sodium 11/16/2023 04:36:00 131 Below low normal 135 -146 (mmol/L) Final Potassium 11/16/2023 04:36:00 4.8 3.5-5.1 (m mol/L) Final Cl 11/16/2023 04:36:00 101 98-107 (mm ol/L) Final CO2 11/16/2023 04:36:00 22 22-32 (mmo l/L) Final Anion gap 11/16/2023 04:36:00 8 7-15 (mmol /L) Final Glucose 11/16/2023 04:36:00 152 Above high normal 70 -120 (mg/dL) Final Calcium 11/16/2023 04:36:00 8.2 Below low normal 8.4 -10.2 (mg/dL) Final Performing Location LABORATORY [facility] - [address] [place] [address]
--- OUTSIDE RECORDS SUMMARY | 2023-12-09 11:08 | External Medical Summary ---
Author Name Unknown Address Unknown Organization K1F:LABORATORY [facility] - [address] [place] [address] Laboratory Report Ordering Provider Test Date Status YAMILETH JAMIL 11/18/2023 04:44:00 Final Observation Date Value Abnormality Reference (Units ) Status Phosphate 11/18/2023 04:44:00 4.0 2.5-4.8 (m g/dL) Final Performing Location LABORATORY [facility] - [address] [place] [address]
--- OUTSIDE RECORDS SUMMARY | 2023-12-09 11:08 | External Medical Summary ---
Author Name Unknown Address Unknown Organization K1F:LABORATORY [facility] - [address] [place] [address] Laboratory Report Ordering Provider Test Date Status SNAAADAM 11/13/2023 15:02:00 Final Warfarin Therapy
INR: 2 .0-3.0 conventional anticoagulation
INR: 2.5- 3.5 high intensity anticoagulation Observation Date Value Abnormality Reference (Units ) Status PT 11/13/2023 15:02:00 20.3 Above high normal 11 .6-15.2 (seconds) Final INR 11/13/2023 15:02:00 1.7 Above high normal 0. 8-1.2 Final Performing Location LABORATORY [facility] - [address] [place] [address]
--- OUTSIDE RECORDS SUMMARY | 2023-12-09 11:08 | External Medical Summary ---
Author Name Unknown Address Unknown Organization K1F:LABORATORY [facility] - [address] [place] [address] Laboratory Report Ordering Provider Test Date Status SANAJAIR 11/14/2023 05:30:00 Final Observation Date Value Abnormality Reference (Units ) Status Magnesium 11/14/2023 05:30:00 2.2 1.5-2.6 (m g/dL) Final Performing Location LABORATORY [facility] - [address] [place] [address]
--- OUTSIDE RECORDS SUMMARY | 2023-12-09 11:08 | External Medical Summary ---
Author Name Unknown Address Unknown Organization K1F:LABORATORY [facility] - [address] [place] [address] Laboratory Report Ordering Provider Test Date Status SANAJAIR 11/13/2023 15:02:00 Final Observation Date Value Abnormality Reference (Units ) Status Magnesium 11/13/2023 15:02:00 2.0 1.5-2.6 (m g/dL) Final Performing Location LABORATORY [facility] - [address] [place] [address]
--- OUTSIDE RECORDS SUMMARY | 2023-12-09 11:08 | External Medical Summary ---
Author Name Unknown Address Unknown Organization K1F:LABORATORY [facility] - [address] [place] [address] Laboratory Report Ordering Provider Test Date Status YAMILETH JAMIL 11/16/2023 04:36:00 Final Observation Date Value Abnormality Reference (Units ) Status Magnesium 11/16/2023 04:36:00 2.4 1.5-2.6 (m g/dL) Final Performing Location LABORATORY [facility] - [address] [place] [address]
--- OUTSIDE RECORDS SUMMARY | 2023-12-09 11:08 | External Medical Summary ---
Author Name Unknown Address Unknown Organization K1F:LABORATORY [facility] - [address] [place] [address] Laboratory Report Ordering Provider Test Date Status SANAJAIR 11/13/2023 15:02:00 Final Observation Date Value Abnormality Reference (Units ) Status Phosphate 11/13/2023 15:02:00 2.5 2.5-4.8 (m g/dL) Final Performing Location LABORATORY [facility] - [address] [place] [address]
--- OUTSIDE RECORDS SUMMARY | 2023-12-09 11:08 | External Medical Summary ---
Author Name Unknown Address Unknown Organization K1F:LABORATORY [facility] - [address] [place] [address] Laboratory Report Ordering Provider Test Date Status NOREEN JUAREZ 11/19/2023 07:48:00 Final Observation Date Value Abnormality Reference (Units ) Status Protein 11/19/2023 07:48:00 4.7 Below low normal 6.0 -8.3 (g/dL) Final Performing Location LABORATORY [facility] - [address] [place] [address]
--- OUTSIDE RECORDS SUMMARY | 2023-12-09 11:08 | External Medical Summary ---
Author Name Unknown Address Unknown Organization K1F:LABORATORY [facility] - [address] [place] [address] Laboratory Report Ordering Provider Test Date Status YAMILETH JAMIL 11/18/2023 04:44:00 Final Observation Date Value Abnormality Reference (Units ) Status BUN 11/18/2023 04:44:00 31 Above high normal 6-20 (mg/dL) Final Creatinine 11/18/2023 04:44:00 0.9 0.5-1.0 (mg/dL) Final Glomerular filtration rate/1.73 sq M.predicted [Volume Rate/Area] in Serum, Plasma or Blood by Creatinine-based formula (CKD-EPI) 11/18/2023 04:44:00 60 >=60 (mL/min) Final eGFR is calculated based on the CKD-EPI 2020 equation Sodium 11/18/2023 04:44:00 129 Below low normal 135 -146 (mmol/L) Final Potassium 11/18/2023 04:44:00 4.6 3.5-5.1 (m mol/L) Final Cl 11/18/2023 04:44:00 96 Below low normal 98- 107 (mmol/L) Final CO2 11/18/2023 04:44:00 22 22-32 (mmo l/L) Final Anion gap 11/18/2023 04:44:00 11 7-15 (mmol /L) Final Glucose 11/18/2023 04:44:00 115 70-120 (mg /dL) Final Calcium 11/18/2023 04:44:00 8.4 8.4-10.2 ( mg/dL) Final Performing Location LABORATORY [facility] - [address] [facility] [place] [address]
[2023-12-09] MEDS: SODIUM CHLORIDE 0.9% 500 ML IV SCH (11:33)
--- NOTE | 2023-12-09 11:35 | Emergency Department Note ---
Impression & Plan AMS (altered mental status), Acute hypotension, Abdominal pain, Acute UTI (urinary tract infection) ED Provider Note NAME: YA ABBOTT AGE: 83 SEX: Female INFORMANT: EMS, patient, facility transfer note ED PROVIDER(S): Wilman Kramer MD CHIEF COMPLAINT: AMS, hypotension PLAN: Disposition: Admitted Outpatient prescription management: none Referral: None MEDICAL DECISION MAKING: Patient presented because of altered mental status and hypotension from [facility]. Her hypotension and hypoxia were not noted on initial vital signs but were so prehospital measurements. Patient had IV established. Gentle hydration was initiated along with blood cultures, labs, urine, chest x-ray and CT imaging. Patient does have some pulm vascular congestion on chest x-ray but concerns also for an infiltrate. Her BNP is elevated as well as her cardiac troponin. Patient has an elevated lactate. Ammonia and ABG are unremarkable. Mild CHRIS was noted. ECG did not show any acute ischemia. Paced rhythm noted on monitoring. Patient had fluctuating blood pressures. She was hydrated with boluses of normal saline. She did meet for her 30 mL/kg sepsis fluids. She was treated empirically with cefepime and vancomycin. Patient had a few episodes of transient hypotension but these did resolve. Head CT imaging as well as abdomen pelvis imaging did not reveal any significant acute processes in the head. The patient's abdomen pelvis CT revealed some ascites. Further management in the hospital will be necessary. [facility]. Patient was evaluated in the ER and admitted for further management. Care/management discussed with: customer technical services manager,ED pharmacist Level of care consideration(s): After review of the information above and other included data, I feel the patient requires escalation of care to admission Triage Nursing notes: reviewed and agree them. Vital Signs: reviewed and remarkable for borderline Additional History obtained from: none Chronic Medical/Social Conditions affecting care: Pancreatitis, CVA Prior/ Outside/ External records reviewed: [facility] information reviewed from 2 weeks. Patient was admitted there after being diagnosed with pancreatitis and undergoing ERCP at [facility]. She also had course complicated by a GI bleed and did require transfusion Differential Diagnosis: Infection, hypoglycemia, electrolyte abnormalities, overdose, toxicologic, cardiac sources, intracerebral event, neurologic, trauma, as well as other pathologies. Diagnostics, independently interpreted by me: ECG: [none] Cardiac Monitoring: Cardiac monitoring ordered by me: The patient was placed on continuous cardiac monitoring and observed. It revealed a paced rhythm at 101 bpm Medical decision rules: none Imaging studies: Chest x-ray concerning for pulm vascular congestion as well as right lower lobe infiltrate. Head CT: A noncontrast CT scan of the head was performed and was negative for tumor, fracture, intracranial hemorrhage, or other acute pathology. I refer you to the EMR for further details. HPI: 83 year old Female arrives for evaluation of change in mental status and hypotension. Patient is currently at [facility] secondary to recent hospitalization for pancreatitis, ERCP with stent placement, and course complicated by GI bleed. Patient was noted to be confused and having low blood pressure at the rehab facility. Her O2 saturations also were noted to be in the upper 80s. EMS was summoned. She responded well to supplemental oxygen. On arrival the hypotension and hypoxia was resolved. Patient answer some basic questions but is very sleepy and the history is limited. She does deny any headache. She has no current chest pain but did experience some chest pain around 9 AM this morning. She denies any difficulty breathing. She does describe lower abdominal pain and pain with urination. PAST MEDICAL HISTORY: See Below, pancreatitis, hypertension, GI PAST SURGICAL HISTORY: See Below, SOCIAL HISTORY: See Below, retired HOME MEDICATIONS: See Below ALLERGIES: See Below VITALS: See Below PHYSICAL EXAMINATION: GENERAL: Awake but sleepy. Mildly-appearing, in no distress HENT: Normocephalic, atraumatic. Oropharynx unremarkable. EYES: Normal conjunctiva. Sclera non-icteric. NECK: Inspection normal. Non-tender. Supple. No nuchal rigidity. FROM. No masses. RESPIRATORY: Relatively clear to auscultation With a few rhonchi bilaterally normal respiratory effort. CARDIAC: Borderline tachycardic rate. Normal rhythm. No murmurs. No rubs. Extremities warm and well perfused. Pulses equal. No JVD. GI: Soft, non-distended. No tenderness to palpation. No rebound or guarding. No masses. RECTAL: Deferred. MUSCULOSKELETAL: Atraumatic. Chest examination reveals no tenderness. The back is symmetrical on inspection without obvious abnormality. There is no CVA tenderness to palpation. No joint edema. LOWER EXTREMITIES: Calves are equal size bilaterally and non-tender. 2+ edema. No discoloration. NEURO: Altered sensorium. Answering basic questioning however cannot give any detailed descriptions. Unable to comply with neurologic examination. SKIN: No rash or jaundice noted. PROCEDURES: none CRITICAL CARE: I have personally spent 30 minutes of critical care time in the direct management of this patient. This includes bedside care, interpretation of diagnostic studies, and testing, discussion with consultants, patient, and other required patient management activities. These minutes are in excess of all separately billable procedures. OBSERVATION NOTE: none Past Med/Surg History Problem List Acute superficial venous thrombosis of left lower extremity Anasarca Sepsis Acute UTI (urinary tract infection) (Acute) Abdominal pain (Acute) Acute hypotension (Acute) AMS (altered mental status) (Acute) Urinary incontinence Severe malnutrition Acute kidney injury Elevated serum creatinine Melena Acute dehydration (Acute) Acute renal failure (Acute) Thrombocytopenia Elevated troponin (Acute) Acute pancreatitis (Acute) History of CVA (cerebrovascular accident) Anemia S/P TKR (total knee replacement) Social History Smoking Status: Never smoker Hx Alcohol Use: No Hx Substance Use: No Preferred Language: Irish Communication Ability: Effective Oiler Helper Required: No Beliefs That Will Affect Care: None Current Living Situation: Spouse Feels Safe at Home: Yes Assistive Devices: Cane, Stair Lift and Walker Allergies Allergies Allergy/AdvReac Type Severity Reaction Status Date / Time Bactrim Allergy Unknown VOMITING Verified 10/02/17 07:48 celecoxib Allergy Unknown ELEVATED Verified 12/09/23 17:02 LIVER ENYZMES oxytetracycline Allergy Unknown ORAL Verified 12/09/23 17:02 MED-RASH polymyxin B Allergy Unknown ORAL Verified 12/09/23 17:02 MED-RASH sulfamethoxazole [Bactrim] Allergy Unknown VOMITING Verified 12/09/23 17:02 tramadol Allergy Unknown UNABLE TO Verified 12/09/23 17:02 SLEEP trimethoprim [Bactrim] Allergy Unknown VOMITING Verified 12/09/23 17:02 Home Meds Home Medications Medication Instructions Recorded Confirmed Magnesium Hydroxide Susp 30 ml PO DAILY PRN Constipation 12/09/23 12/09/23 Saccharomyces boulardii 250 mg 250 mg PO BID 12/09/23 12/09/23 capsule acetaminophen 325 mg tablet 650 mg PO Q4 PRN Pain 12/09/23 12/09/23 (Tylenol) albuterol sulfate 90 mcg/actuation 2 puff inhalation Q6 PRN Wheezing 12/09/23 12/09/23 aerosol inhaler atorvastatin 40 mg tablet 40 mg PO HS 12/09/23 12/09/23 benzonatate 100 mg capsule 100 mg PO BID PRN Cough 12/09/23 12/09/23 buspirone 5 mg tablet 5 mg PO Q12 12/09/23 12/09/23 calcium carbonate 1,000 mg PO QID PRN Indigestion 12/09/23 12/09/23 carvedilol 12.5 mg tablet 12.5 mg PO BIDM 12/09/23 12/09/23 cholecalciferol (vitamin D3) 25 25 mcg PO BID 12/09/23 12/09/23 mcg (1,000 unit) tablet (Vitamin D3) clopidogrel 75 mg tablet 75 mg PO DAILY 12/09/23 12/09/23 coenzyme Q10 100 mg capsule 100 mg PO DAILY 12/09/23 12/09/23 (CoQ-10) cyanocobalamin (vitamin B-12) 1,000 mcg PO DAILY 12/09/23 12/09/23 1,000 mcg tablet (Vitamin B-12) docusate sodium 100 mg tablet 100 mg PO BID 12/09/23 12/09/23 fluticasone furoate 200 1 inh inhalation DAILY 12/09/23 12/09/23 mcg/actuation blister powder for inhalation furosemide 40 mg tablet 40 mg PO DAILY 12/09/23 12/09/23 levothyroxine 100 mcg tablet 100 mcg PO DAILY 12/09/23 12/09/23 edcbel-[id number] 1 cap PO QID 12/09/23 12/09/23 3,000-10,000-14,000 unit capsule,delayed rel (Zenpep) lorazepam 0.5 mg tablet 0.5 mg PO Q12 12/09/23 12/09/23 lutein 20 mg capsule 20 mg PO DAILY 12/09/23 12/09/23 lysine 500 mg tablet 500 mg PO DAILY 12/09/23 12/09/23 mirtazapine 15 mg tablet 7.5 mg PO HS 12/09/23 12/09/23 ondansetron HCl 4 mg tablet 4 mg PO ACHS 12/09/23 12/09/23 polyethylene glycol 3350 17 gram 17 g PO .QLUNCH PRN Constipation 12/09/23 12/09/23 oral powder packet (Miralax) sennosides 8.6 mg-docusate sodium 1 tab-cap PO .QLUNCH PRN 12/09/23 12/09/23 50 mg tablet (Senokot-S) Constipation zinc sulfate 220 mg capsule 220 mg PO DAILY 12/09/23 12/09/23 Results & Data (ED) Vital Signs Vital Signs - 24 hr 12/09/23 11:21 12/09/23 11:30 12/09/23 11:31 Temperature Temperature Source Pulse Rate 103 H 102 H Pulse Rate from SpO2 Sensor 108 H 101 H Respiratory Rate 26 H 25 H Respiratory Effort / Characteristics Respiratory Depth Respiratory Pattern Blood Pressure 85/54 L Blood Pressure Mean 67 Pulse Oximetry 99 97 Oxygen Delivery Method Sepsis Recent Fever Within 48 Hours Sepsis New/Unexplained Change in Mental Status Sepsis Action Taken by Nursing 12/09/23 11:34 12/09/23 11:34 12/09/23 11:45 Temperature 37.1 C Temperature Source Oral Pulse Rate 106 H 98 H Pulse Rate from SpO2 Sensor 97 H Respiratory Rate 20 25 H Respiratory Effort / Characteristics Non-Labored Spontaneous Respiratory Depth Normal Respiratory Pattern Regular Blood Pressure 111/68 Blood Pressure Mean 82 Pulse Oximetry 100 100 97 Oxygen Delivery Method Room Air Room Air Sepsis Recent Fever Within 48 Hours No Sepsis New/Unexplained Change in Mental Status Yes Sepsis Action Taken by Nursing Physician Notified 12/09/23 11:51 12/09/23 11:51 12/09/23 12:03 Temperature Temperature Source Pulse Rate 96 H Pulse Rate from SpO2 Sensor 96 H Respiratory Rate 27 H Respiratory Effort / Characteristics Respiratory Depth Respiratory Pattern Blood Pressure 76/51 L 91/60 L Blood Pressure Mean 56 71 Pulse Oximetry 96 Oxygen Delivery Method Sepsis Recent Fever Within 48 Hours Sepsis New/Unexplained Change in Mental Status Sepsis Action Taken by Nursing 12/09/23 12:03 12/09/23 12:07 12/09/23 12:21 Temperature Temperature Source Pulse Rate 93 H 94 H Pulse Rate from SpO2 Sensor 95 H 95 H Respiratory Rate 27 H Respiratory Effort / Characteristics Respiratory Depth Respiratory Pattern Blood Pressure Blood Pressure Mean Pulse Oximetry 94 96 Oxygen Delivery Method Sepsis Recent Fever Within 48 Hours Sepsis New/Unexplained Change in Mental Status Sepsis Action Taken by Nursing 12/09/23 12:30 12/09/23 13:12 12/09/23 13:12 Temperature Temperature Source Pulse Rate 88 Pulse Rate from SpO2 Sensor 90 Respiratory Rate 21 Respiratory Effort / Characteristics Respiratory Depth Respiratory Pattern Blood Pressure 102/71 84/59 L Blood Pressure Mean 81 70 Pulse Oximetry 95 Oxygen Delivery Method Sepsis Recent Fever Within 48 Hours Sepsis New/Unexplained Change in Mental Status Sepsis Action Taken by Nursing 12/09/23 13:21 12/09/23 13:39 12/09/23 13:57 Temperature Temperature Source Pulse Rate 85 96 H 90 Pulse Rate from SpO2 Sensor 90 92 H 90 Respiratory Rate 20 24 21 Respiratory Effort / Characteristics Respiratory Depth Respiratory Pattern Blood Pressure Blood Pressure Mean Pulse Oximetry 96 99 98 Oxygen Delivery Method Sepsis Recent Fever Within 48 Hours Sepsis New/Unexplained Change in Mental Status Sepsis Action Taken by Nursing 12/09/23 14:00 12/09/23 14:00 12/09/23 14:03 Temperature Temperature Source Pulse Rate 87 86 Pulse Rate from SpO2 Sensor 89 86 Respiratory Rate 21 18 Respiratory Effort / Characteristics Respiratory Depth Respiratory Pattern Blood Pressure 107/58 L Blood Pressure Mean 70 Pulse Oximetry 94 97 Oxygen Delivery Method Room Air Sepsis Recent Fever Within 48 Hours Sepsis New/Unexplained Change in Mental Status Sepsis Action Taken by Nursing 12/09/23 14:16 12/09/23 14:21 Temperature Temperature Source Pulse Rate 93 H Pulse Rate from SpO2 Sensor 91 H Respiratory Rate 21 Respiratory Effort / Characteristics Respiratory Depth Respiratory Pattern Blood Pressure 117/40 L Blood Pressure Mean 71 Pulse Oximetry 96 Oxygen Delivery Method Sepsis Recent Fever Within 48 Hours Sepsis New/Unexplained Change in Mental Status Sepsis Action Taken by Nursing Laboratory Data 12/09/23 11:29 12/09/23 11:29 Lab Results 12/09/23 12/09/23 12/09/23 Range/Units 11:29 11:57 12:16 WBC 11.08 H (4.8-10.8) K/ul RBC 3.25 L (4.20-5.40) M/uL Hgb 9.5 L (12.0-16.0) g/dl Hct 29.9 L (37.0-47.0) % MCV 92.0 (80.0-100.0) fL MCH 29.2 (25.0-34.0) pg MCHC 31.8 L (32.0-36.0) g/dL RDW Std Deviation 54.8 H (36.4-46.3) fL RDW Coeff of Yan 16.1 H (11.5-14.5) % Plt Count 59 L (130-400) K/uL MPV 11.0 (9.4-12.4) fL Immature Gran % (Auto) 1.2 % Neut % (Auto) 91.4 % Lymph % (Auto) 2.6 % Marin % (Auto) 4.7 % Eos % (Auto) 0.0 % Baso % (Auto) 0.1 % Neut # (Auto) 10.13 H (1.40-6.50) K/uL Lymph # (Auto) 0.29 L (1.20-3.40) K/uL Marin # (Auto) 0.52 (0.11-0.59) K/uL Eos # (Auto) 0.00 (0.00-0.50) K/uL Baso # (Auto) 0.01 (0.00-0.20) K/uL Immature Gran # (Auto) 0.13 (0.01-0.20) K/uL PT 14.9 H (9.0-12.0) Seconds INR 1.4 H (0.9-1.1) APTT 35 H (21-31) Seconds PTT Ratio 1.3 ABG pH (7.35-7.45) ABG pCO2 (35-46) mmHg ABG pO2 (80-95) mmHg ABG HCO3 (19-24) mmol/L ABG O2 Saturation (90-95) % ABG Base Excess (-9-1.8) mEq/L Roland Test (Pos) Oxygen Given Sodium 133 L (136-145) mmol/L Potassium 4.5 (3.5-5.1) mmol/L Chloride 101 (98-107) mmol/L Carbon Dioxide 25 (21-32) mmol/L Anion Gap 7 (3-11) BUN 51 H (6-23) mg/dl Creatinine 1.84 H (0.6-1.2) mg/dl Est Cr Clr Drug Dosing 27.5 ml/min Est GFR ( Amer) 28.9 ml/min Est GFR (Non-Af Amer) 24.9 ml/min BUN/Creatinine Ratio 27.7 H (10-20) Glucose 144 H (70-99(Fasting)) mg/dl Lactate 3.2 H* (0.4-2.0) mmol/L Calcium 8.6 (8.6-10.3) mg/dl Magnesium 2.5 H (1.7-2.4) mg/dl Total Bilirubin 0.6 (0.2-1.0) mg/dl Direct Bilirubin 0.1 (0-0.2) mg/dl AST 21 (13-39) U/L ALT 14 (7-52) U/L Alkaline Phosphatase 132 H (34-104) U/L Ammonia 16.0 L (18-72) umol/L Troponin I High Sens 55.6 H* (0-14) pg/ml B-Natriuretic Peptide 480 H (0-100) pg/ml Total Protein 5.0 L (6.0-8.3) gm/dl Albumin 2.6 L (3.4-5.0) gm/dl Amylase 24 L (25-115) U/L Lipase 32 (11-82) U/L Procalcitonin 1.05 H (0-0.5) ng/ml Urine Color Dark Yellow Urine Appearance Cloudy A (Clear) Urine pH 5.0 (4.5-7.5) Ur Specific Beaver 1.021 (1.000-1.030) Urine Protein 1+ H (Negative) Urine Glucose (UA) Negative (Negative) Urine Ketones Trace H (Negative) Urine Blood Negative (Negative) Urine Nitrite Negative (Negative) Urine Bilirubin 1+ H (Negative) Urine Urobilinogen Negative (Negative) Ur Leukocyte Esterase 1+ H (Negative) Urine WBC (Auto) 0-5 (0-5) /hpf Urine RBC (Auto) 3-5 H (0-2) /hpf U Hyaline Cast (Auto) >20 H (0-2) /lpf U Epithel Cells (Auto) 6-10 H (0-2) /hpf Urine Bacteria (Auto) 3+ H (None Seen) Adenovirus (PCR) (NotDetected) B. pertussis DNA (PCR) (NotDetected) B.parapertussis DNA PCR (NotDetected) C. pneumoniae DNA (PCR) (NotDetected) Coronavirus OC43 (PCR) (NotDetected) Coronavirus HKU1 (PCR) (NotDetected) Coronavirus 229E (PCR) (NotDetected) SARS-CoV-2 (PCR) (NotDetected) Coronavirus NL63 (PCR) (NotDetected) Human Metapneumovir PCR (NotDetected) Influenza Type A (PCR) (NotDetected) Influenza Type B (PCR) (NotDetected) M. pneumoniae (PCR) (NotDetected) Parainfluenza 1 (PCR) (NotDetected) Parainfluenza 2 (PCR) (NotDetected) Parainfluenza 3 (PCR) (NotDetected) Parainfluenza 4 (PCR) (NotDetected) RSV (PCR) (NotDetected) Entero/Rhino (PCR) (NotDetected) Blood Type A Positive Antibody Screen NEGATIVE 12/09/23 12/09/23 12/09/23 Range/Units 13:20 14:18 14:54 WBC (4.8-10.8) K/ul RBC (4.20-5.40) M/uL Hgb (12.0-16.0) g/dl Hct (37.0-47.0) % MCV (80.0-100.0) fL MCH (25.0-34.0) pg MCHC (32.0-36.0) g/dL RDW Std Deviation (36.4-46.3) fL RDW Coeff of Yan (11.5-14.5) % Plt Count (130-400) K/uL MPV (9.4-12.4) fL Immature Gran % (Auto) % Neut % (Auto) % Lymph % (Auto) % Marin % (Auto) % Eos % (Auto) % Baso % (Auto) % Neut # (Auto) (1.40-6.50) K/uL Lymph # (Auto) (1.20-3.40) K/uL Marin # (Auto) (0.11-0.59) K/uL Eos # (Auto) (0.00-0.50) K/uL Baso # (Auto) (0.00-0.20) K/uL Immature Gran # (Auto) (0.01-0.20) K/uL PT (9.0-12.0) Seconds INR (0.9-1.1) APTT (21-31) Seconds PTT Ratio ABG pH 7.44 (7.35-7.45) ABG pCO2 31 L (35-46) mmHg ABG pO2 93 (80-95) mmHg ABG HCO3 21 (19-24) mmol/L ABG O2 Saturation 97.8 H (90-95) % ABG Base Excess -2.1 (-9-1.8) mEq/L Roland Test Pos (Pos) Oxygen Given ROOM AIR Sodium (136-145) mmol/L Potassium (3.5-5.1) mmol/L Chloride (98-107) mmol/L Carbon Dioxide (21-32) mmol/L Anion Gap (3-11) BUN (6-23) mg/dl Creatinine (0.6-1.2) mg/dl Est Cr Clr Drug Dosing ml/min Est GFR ( Amer) ml/min Est GFR (Non-Af Amer) ml/min BUN/Creatinine Ratio (10-20) Glucose (70-99(Fasting)) mg/dl Lactate 2.3 H* (0.4-2.0) mmol/L Calcium (8.6-10.3) mg/dl Magnesium (1.7-2.4) mg/dl Total Bilirubin (0.2-1.0) mg/dl Direct Bilirubin (0-0.2) mg/dl AST (13-39) U/L ALT (7-52) U/L Alkaline Phosphatase (34-104) U/L Ammonia (18-72) umol/L Troponin I High Sens 53.4 H* (0-14) pg/ml B-Natriuretic Peptide (0-100) pg/ml Total Protein (6.0-8.3) gm/dl Albumin (3.4-5.0) gm/dl Amylase (25-115) U/L Lipase (11-82) U/L Procalcitonin (0-0.5) ng/ml Urine Color Urine Appearance (Clear) Urine pH (4.5-7.5) Ur Specific Beaver (1.000-1.030) Urine Protein (Negative) Urine Glucose (UA) (Negative) Urine Ketones (Negative) Urine Blood (Negative) Urine Nitrite (Negative) Urine Bilirubin (Negative) Urine Urobilinogen (Negative) Ur Leukocyte Esterase (Negative) Urine WBC (Auto) (0-5) /hpf Urine RBC (Auto) (0-2) /hpf U Hyaline Cast (Auto) (0-2) /lpf U Epithel Cells (Auto) (0-2) /hpf Urine Bacteria (Auto) (None Seen) Adenovirus (PCR) Not Detected (NotDetected) B. pertussis DNA (PCR) Not Detected (NotDetected) B.parapertussis DNA PCR Not Detected (NotDetected) C. pneumoniae DNA (PCR) Not Detected (NotDetected) Coronavirus OC43 (PCR) Not Detected (NotDetected) Coronavirus HKU1 (PCR) Not Detected (NotDetected) Coronavirus 229E (PCR) Not Detected (NotDetected) SARS-CoV-2 (PCR) Not Detected (NotDetected) Coronavirus NL63 (PCR) Not Detected (NotDetected) Human Metapneumovir PCR Not Detected (NotDetected) Influenza Type A (PCR) Not Detected (NotDetected) Influenza Type B (PCR) Not Detected (NotDetected) M. pneumoniae (PCR) Not Detected (NotDetected) Parainfluenza 1 (PCR) Not Detected (NotDetected) Parainfluenza 2 (PCR) Not Detected (NotDetected) Parainfluenza 3 (PCR) Not Detected (NotDetected) Parainfluenza 4 (PCR) Not Detected (NotDetected) RSV (PCR) Not Detected (NotDetected) Entero/Rhino (PCR) Not Detected (NotDetected) Blood Type Antibody Screen Administered Medications Discontinued Medications Sodium Chloride (Nss) 500 mls @ 999 mls/hr IV .Q31M PRIYANK Stop: 12/09/23 12:00 Last Infusion: 12/09/23 12:27 Dose: Infused Documented By: Admin: 12/09/23 11:33 Dose: 999 mls/hr Documented By: RUBIA Cefepime HCl (Maxipime) 2,000 mg in 20 mls @ 5 mls/min IV NOW STA; Protocol Stop: 12/09/23 11:46 Last Admin: 12/09/23 12:24 Dose: 5 mls/min Documented By: RUBIA Vancomycin HCl 2,000 mg/ (Sodium Chloride) 540 mls @ 200 mls/hr IV NOW STA Stop: 12/09/23 14:24 Last Infusion: 12/09/23 17:26 Dose: Infused Documented By: Admin: 12/09/23 12:24 Dose: 200 mls/hr Documented By: RUBIA Sodium Chloride (Nss) 500 mls @ 999 mls/hr IV .Q31M ONE Stop: 12/09/23 12:19 Last Infusion: 12/09/23 12:27 Dose: Infused Documented By: Admin: 12/09/23 11:53 Dose: 999 mls/hr Documented By: RUBIA Sodium Chloride (Nss) 500 mls @ 999 mls/hr IV .Q31M ONE Stop: 12/09/23 13:22 Last Infusion: 12/09/23 14:31 Dose: Infused Documented By: Admin: 12/09/23 13:20 Dose: 999 mls/hr Documented By: RUBIA Acetaminophen (Ofirmev) 1,000 mg in 100 mls @ 400 mls/hr IV NOW STA Stop: 12/09/23 14:35 Last Infusion: 12/09/23 14:50 Dose: Infused Documented By: Admin: 12/09/23 14:30 Dose: 400 mls/hr Documented By: RUBIA Midodrine (Midodrine Hcl 10 Mg Tab) 10 mg PO ONCE ONE Stop: 12/09/23 15:43 Last Admin: 12/09/23 16:03 Dose: 10 mg Documented By: NOEMI Imaging Data Radiologist's Impression: Abdomen/Pelvis CT 12/09/23 11:23 CT SCAN OF THE ABDOMEN AND PELVIS WITHOUT IV CONTRAST CLINICAL HISTORY: Lower abdominal pain. COMPARISON STUDY: Abdominal CT dated 11/09/2023. TECHNIQUE: CT scan of the abdomen and pelvis is performed from the lung bases to the proximal femora. Images are reviewed in the axial, sagittal, and coronal planes. IV contrast was not administered for this examination as per the referring clinician. Note that the examination was performed in significantly suboptimal fashion without oral and IV contrast. A dose lowering technique was utilized adhering to the principles of ALARA. CT DOSE: 7. mGy.cm FINDINGS: Lung bases: There is postsurgical change from prior cardiac valve surgeries. Pacemaker leads are in place. The heart is enlarged and without pericardial effusion. There are small pleural effusions with dependent atelectasis. There are innumerable bibasilar pulmonary nodules which measure up to 9 mm. There is a small hiatal hernia. There is evidence of previous left mastectomy. Liver: The unenhanced liver is normal in size, contour, and attenuation. There is mild intrahepatic biliary ductal dilatation. Gallbladder: Surgically absent noting clips in the gallbladder fossa. Spleen: Normal in size and attenuation. There are calcified splenic granulomas. Pancreas: The unenhanced pancreas appears enlarged and edematous with peripancreatic infiltration and fluid. A cyst gastrostomy tube is in place. No residual organized peripancreatic fluid collection is seen on this unenhanced examination. Adrenal glands: There is an indeterminate 2.1 cm left adrenal nodule. A 1.5 cm right adrenal nodule meets criteria for a fat-containing adenoma. Kidneys: The unenhanced kidneys demonstrate cortical atrophy and are without hydronephrosis. There are no renal calculi identified. There is no evidence of contour deforming renal mass lesion. Abdominal vasculature: The abdominal aorta is normal in course and caliber noting advanced atherosclerotic calcification. Bowel: There is mild colonic diverticulosis without CT evidence of acute diverticulitis. No bowel obstruction is seen. Residual enteric contrast is noted in the colon. The appendix is nonvisualized. Peritoneum: There is a moderate volume of abdominopelvic ascites. No intraperitoneal free air is seen. Numerous small foci of omental nodularity have not appreciably changed. Lymphadenopathy: Mildly enlarged mesenteric lymph nodes are again seen and measures up to 2.0 cm. There are also mildly enlarged retroperitoneal lymph nodes which measure up to 1.8 cm in length. Pelvic viscera: The bladder is decompressed around a Falcon catheter and could not be evaluated. The uterus is surgically absent. No adnexal lesion is seen. There are bilateral fat-containing groin hernias, left larger than right. Skeletal structures: The skeletal structures are osteopenic. Moderate lumbosacral spondylosis is observed. No lytic or blastic lesions are seen. Arthritic change is noted in the hips. Soft tissues: There is anasarca of the body wall. IMPRESSION: 1. Again seen are findings of acute versus acute on chronic pancreatitis. 2. A cyst gastrostomy tube is in place. No organized peripancreatic fluid collection is seen on this unenhanced examination.. 3. Pleural effusions, anasarca, and abdominal ascites indicates fluid overload. 4. Again seen are numerous mildly enlarged mesenteric and retroperitoneal lymph nodes, as well as omental nodularity. Metastatic disease is not excluded. Correlate for any oncological history. 5. Again seen are numerable pulmonary nodules at both lung bases. These are pathologically determined, and metastatic disease is not excluded. Again, this should be compared to any prior outside imaging studies and for any oncological history. 6. Additional findings as above. ACT 112: Negative or not required by law. Electronically signed by: David Edouard M.D. 12/09/2023 2:16 PM Chest X-Ray 12/09/23 11:23 SINGLE VIEW CHEST CLINICAL HISTORY: Sepsis FINDINGS: An AP, portable, upright chest radiograph is compared to study dated 11/09/2023. A 2-lead cardiac pacemaker is unchanged in position and partially obscures the right upper chest. The heart is enlarged noting atherosclerotic calcification of the thoracic aorta. The prominence of the pulmonary vasculature. There is airspace consolidation of the right lung base and elevation of the right hemidiaphragm. No large pleural effusion or pneumothorax is seen. The bony thorax is grossly intact. Arthritic change is seen in the shoulders and spine. Calcific joint bodies are seen on the left shoulder. IMPRESSION: 1. Cardiomegaly and cardiac pacemaker with prominence of the pulmonary vasculature. Correlate clinically for evidence of fluid overload/congestive change. 2. Airspace consolidation at the right lung base is suspicious for pneumonia/aspiration pneumonitis. Clinical correlation will be required and radiographic follow-up to resolution is recommended ACT 112: Negative or not required by law. Electronically signed by: David Edouard M.D. 12/09/2023 11:[address] 12/09/23 11:23 CT SCAN OF THE BRAIN WITHOUT IV CONTRAST CLINICAL HISTORY: Change in mental status. COMPARISON STUDY: No priors. TECHNIQUE: Unenhanced axial CT scan of the brain is performed from the vertex to the skull base. A dose lowering technique was utilized adhering to the principles of ALARA. FINDINGS: Brain parenchyma: There is age-related involutional change noting moderate subcortical and periventricular microangiopathic disease. There is no hemorrhage, mass effect, or evidence of acute territorial ischemia by CT criteria. There is a chronic infarct in the left periventricular white matter. Callejas-white matter differentiation is preserved. No extra-axial fluid collection is seen. Ventricles, sulci, cisterns: Prominent secondary to involutional change. Intracranial vasculature: There is atherosclerotic calcification of the cavernous carotid and vertebral arteries. Calvarium: Unremarkable. Sinuses and mastoids: The visualized paranasal sinuses are clear. The mastoid air cells are well pneumatized. Orbits: The bony orbits are grossly intact. There are bilateral ocular lens implants. IMPRESSION: There is no hemorrhage, mass effect, or evidence of acute territorial ischemia by CT criteria. ACT 112: Negative or not required by law. Electronically signed by: David Edouard M.D. 12/09/2023 1:00 PM Ankle X-Ray 12/09/23 12:24 RIGHT ANKLE 3 VIEWS CLINICAL HISTORY: Right ankle pain and swelling. FINDINGS: 3 views of the right ankle are obtained. No prior studies are available for comparison at the time of dictation. The skeletal structures are osteopenic. No fracture is seen. The ankle mortise is intact. Degenerative change is noted at the tibiotalar articulation. There is a dorsal heel spur. Soft tissue edema is seen throughout the right leg. Atherosclerotic calcification is observed in the regional arteries. IMPRESSION: Soft tissue swelling with no acute bony abnormality identified. Electronically signed by: David Edouard M.D. 12/09/2023 1:45 PM Venous Doppler Study 12/09/23 12:24 ULTRASOUND RIGHT LOWER EXTREMITY VENOUS CLINICAL HISTORY: Right leg pain and swelling. Sepsis.. COMPARISON STUDY: No priors. TECHNIQUE: Real-time, grayscale, and color Doppler sonography of the deep veins of the right lower extremity was performed from the inguinal crease to the calf. Compression and augmentation were utilized. FINDINGS: There is no sonographic evidence of deep venous thrombosis identified in the right lower extremity. The common femoral, superficial femoral, and popliteal veins are patent and normally compressible. There is occlusive superficial venous thrombosis in the greater saphenous vein within 1 cm of the junction with common femoral vein. This extends into the proximal thigh. The patient declined imaging more distally. The profunda femoris vein at the junction with the common femoral vein is clear. The visualized calf veins are patent. Soft tissue edema is seen in the right leg. IMPRESSION: 1. There is no sonographic evidence of deep venous thrombosis identified in the right lower extremity. 2. There is occlusive superficial venous thrombosis within the greater saphenous vein. This approaches within 1 cm of the common femoral vein. ACT 112: Negative or not required by law. Electronically signed by: David Edouard M.D. 12/09/2023 1:57 PM Discharge Plan Visit Data Chief Complaint: Weakness Stated Complaint: WEAKNESS, HYPOTENSIVE ED Provider: Wilman Kramer Discharge Problem: AMS (altered mental status), Acute hypotension, Abdominal pain, Acute UTI (urinary tract infection) Patient Disposition: Admitted As Inpatient Discharge Instructions Interventions: ED Discharge Assessment Last Done: 12/09/23 17:20
[2023-12-09] MEDS ORDERED: VANCOMYCIN CONSULT ACTIVE PRN (11:43)
--- NOTE | 2023-12-09 11:46 | XRay Report ---
SINGLE VIEW CHEST CLINICAL HISTORY: Sepsis FINDINGS: An AP, portable, upright chest radiograph is compared to study dated 11/09/2023. A 2-lead ca rdiac pacemaker is unchanged in position and partially obscures the right upper chest. The heart is e nlarged noting atherosclerotic calcification of the thoracic aorta. The prominence of the pulmonary v asculature. There is airspace consolidation of the right lung base and elevation of the right hemidia phragm. No large pleural effusion or pneumothorax is seen. The bony thorax is grossly intact. Arthrit ic change is seen in the shoulders and spine. Calcific joint bodies are seen on the left shoulder. IMPRESSION: 1. Cardiomegaly and cardiac pacemaker with prominence of the pulmonary vasculature. Correlate clinica lly for evidence of fluid overload/congestive change. 2. Airspace consolidation at the right lung base is suspicious for pneumonia/aspiration pneumonitis. Clinical correlation will be required and radiographic follow-up to resolution is recommended ACT 112: Negative or not required by law. Electronically signed by: David Edouard M.D. 12/09/2023 11:43 AM
[2023-12-09] MEDS: SODIUM CHLORIDE 0.9% 500 ML IV ONE ×2 (11:53→13:20)
[2023-12-09 12:01] LABS: Albumin Level 2.6 gm/dl (3.4-5.0); BUN Creatinine Ratio 27.7 (10-20); Bilirubin Direct 0.1 mg/dl (0-0.2); Bilirubin,Total 0.6 mg/dl (0.2-1.0); Calcium 8.6 mg/dl (8.6-10.3); Creatinine Clr Calc Pharmacy 27.5 ml/min; Est GFR (African American) 28.9 ml/min; Est GFR (Non-African American) 24.9 ml/min; Magnesium 2.5 mg/dl (1.7-2.4); Potassium 4.5 mmol/L (3.5-5.1)
[2023-12-09 12:14] LABS: Troponin I High Sensitivity 55.6 pg/ml (0-14)
[2023-12-09] MEDS: VANCOMYCIN HCL 2,000 MG in SODIUM CHLORIDE 0.9% 500 ML IV STA (12:24)
[2023-12-09] MEDS: CEFEPIME 2,000 MG/20 ML VIAL IV STA (12:24)
[2023-12-09 12:25] LABS: INR 1.4 (0.9-1.1); Partial Thromboplastin Ratio 1.3; Partial Thromboplastin Time 35 Seconds (21-31); Prothrombin Time 14.9 Seconds (9.0-12.0)
[2023-12-09 12:33] LABS: Hematocrit (blood only) 29.9 % (37.0-47.0); Hemoglobin 9.5 g/dl (12.0-16.0); Mean Corpuscular Hemoglobin 29.2 pg (25.0-34.0); Mean Corpuscular Hgb Conc 31.8 g/dL (32.0-36.0); Platelet Count 59 K/uL (130-400); RDW Coefficient of Variation 16.1 % (11.5-14.5); RDW Standard Deviation 54.8 fL (36.4-46.3); Red Blood Count 3.25 M/uL (4.20-5.40); White Blood Count 11.08 K/ul (4.8-10.8)
[2023-12-09 12:34] LABS: Basophils # (auto) 0.01 K/uL (0.00-0.20); Basophils % (auto) 0.1 %; Immature Granulocytes # (auto) 0.13 K/uL (0.01-0.20); Immature Granulocytes % (auto) 1.2 %; Lymphocytes # (auto) 0.29 K/uL (1.20-3.40); Lymphocytes % (auto) 2.6 %; Monocytes # (auto) 0.52 K/uL (0.11-0.59); Monocytes % (auto) 4.7 %; Neutrophils # (auto) 10.13 K/uL (1.40-6.50); Neutrophils % (auto) 91.4 %
[2023-12-09 12:58] LABS: Appearance Urine Cloudy (Clear); Bacteria Urine Automated 3+ (None Seen); Bilirubin Urine 1+ (Negative); Blood Urine Negative (Negative); Cast Urine Automated >20 /lpf (0-2); Color Urine Dark Yellow; Glucose Urine UA Negative (Negative); Ketones Urine Trace (Negative); Leukocyte Esterase Urine 1+ (Negative); Nitrite Urine Negative (Negative); Protein Urine 1+ (Negative); Specific Gravity Urine 1.021 (1.000-1.030); Urobilinogen Urine Negative (Negative); WBC Urine Automated 0-5 /hpf (0-5)
--- NOTE | 2023-12-09 13:03 | CT Scan Report ---
CT SCAN OF THE BRAIN WITHOUT IV CONTRAST CLINICAL HISTORY: Change in mental status. COMPARISON STUDY: No priors. TECHNIQUE: Unenhanced axial CT scan of the brain is performed from the vertex to the skull base. A do se lowering technique was utilized adhering to the principles of ALARA. FINDINGS: Brain parenchyma: There is age-related involutional change noting moderate subcortical and periventri cular microangiopathic disease. There is no hemorrhage, mass effect, or evidence of acute territorial ischemia by CT criteria. There is a chronic infarct in the left periventricular white matter. Callejas-w jennifer matter differentiation is preserved. No extra-axial fluid collection is seen. Ventricles, sulci, cisterns: Prominent secondary to involutional change. Intracranial vasculature: There is atherosclerotic calcification of the cavernous carotid and vertebr al arteries. Calvarium: Unremarkable. Sinuses and mastoids: The visualized paranasal sinuses are clear. The mastoid air cells are well pneu matized. Orbits: The bony orbits are grossly intact. There are bilateral ocular lens implants. IMPRESSION: There is no hemorrhage, mass effect, or evidence of acute territorial ischemia by CT lilliam alvarez. ACT 112: Negative or not required by law. Electronically signed by: David Edouard M.D. 12/09/2023 1:00 PM
--- NOTE | 2023-12-09 13:46 | XRay Report ---
RIGHT ANKLE 3 VIEWS CLINICAL HISTORY: Right ankle pain and swelling. FINDINGS: 3 views of the right ankle are obtained. No prior studies are available for comparison at t he time of dictation. The skeletal structures are osteopenic. No fracture is seen. The ankle mortise is intact. Degenerative change is noted at the tibiotalar articulation. There is a dorsal heel spur. Soft tissue edema is seen throughout the right leg. Atherosclerotic calcification is observed in the regional arteries. IMPRESSION: Soft tissue swelling with no acute bony abnormality identified. Electronically signed by: David Edouard M.D. 12/09/2023 1:45 PM
--- NOTE | 2023-12-09 14:00 | Ultrasound Report ---
ULTRASOUND RIGHT LOWER EXTREMITY VENOUS CLINICAL HISTORY: Right leg pain and swelling. Sepsis.. COMPARISON STUDY: No priors. TECHNIQUE: Real-time, grayscale, and color Doppler sonography of the deep veins of the right lower ex tremity was performed from the inguinal crease to the calf. Compression and augmentation were utilize d. FINDINGS: There is no sonographic evidence of deep venous thrombosis identified in the right lower ex tremity. The common femoral, superficial femoral, and popliteal veins are patent and normally liz sible. There is occlusive superficial venous thrombosis in the greater saphenous vein within 1 cm of the junction with common femoral vein. This extends into the proximal thigh. The patient declined perry ging more distally. The profunda femoris vein at the junction with the common femoral vein is clear. The visualized calf veins are patent. Soft tissue edema is seen in the right leg. IMPRESSION: 1. There is no sonographic evidence of deep venous thrombosis identified in the right lower extremity . 2. There is occlusive superficial venous thrombosis within the greater saphenous vein. This approache s within 1 cm of the common femoral vein. ACT 112: Negative or not required by law. Electronically signed by: David Edouard M.D. 12/09/2023 1:57 PM
--- NOTE | 2023-12-09 14:17 | CT Scan Report ---
CT SCAN OF THE ABDOMEN AND PELVIS WITHOUT IV CONTRAST CLINICAL HISTORY: Lower abdominal pain. COMPARISON STUDY: Abdominal CT dated 11/09/2023. TECHNIQUE: CT scan of the abdomen and pelvis is performed from the lung bases to the proximal femora. Images are reviewed in the axial, sagittal, and coronal planes. IV contrast was not administered for this examination as per the referring clinician. Note that the examination was performed in signific antly suboptimal fashion without oral and IV contrast. A dose lowering technique was utilized adherin g to the principles of ALARA. CT DOSE: 2077. mGy.cm FINDINGS: Lung bases: There is postsurgical change from prior cardiac valve surgeries. Pacemaker leads are in p lace. The heart is enlarged and without pericardial effusion. There are small pleural effusions with dependent atelectasis. There are innumerable bibasilar pulmonary nodules which measure up to 9 mm. Th ere is a small hiatal hernia. There is evidence of previous left mastectomy. Liver: The unenhanced liver is normal in size, contour, and attenuation. There is mild intrahepatic b iliary ductal dilatation. Gallbladder: Surgically absent noting clips in the gallbladder fossa. Spleen: Normal in size and attenuation. There are calcified splenic granulomas. Pancreas: The unenhanced pancreas appears enlarged and edematous with peripancreatic infiltration and fluid. A cyst gastrostomy tube is in place. No residual organized peripancreatic fluid collection is seen on this unenhanced examination. Adrenal glands: There is an indeterminate 2.1 cm left adrenal nodule. A 1.5 cm right adrenal nodule m eets criteria for a fat-containing adenoma. Kidneys: The unenhanced kidneys demonstrate cortical atrophy and are without hydronephrosis. There ar e no renal calculi identified. There is no evidence of contour deforming renal mass lesion. Abdominal vasculature: The abdominal aorta is normal in course and caliber noting advanced atheroscle rotic calcification. Bowel: There is mild colonic diverticulosis without CT evidence of acute diverticulitis. No bowel obs truction is seen. Residual enteric contrast is noted in the colon. The appendix is nonvisualized. Peritoneum: There is a moderate volume of abdominopelvic ascites. No intraperitoneal free air is seen . Numerous small foci of omental nodularity have not appreciably changed. Lymphadenopathy: Mildly enlarged mesenteric lymph nodes are again seen and measures up to 2.0 cm. The re are also mildly enlarged retroperitoneal lymph nodes which measure up to 1.8 cm in length. Pelvic viscera: The bladder is decompressed around a Falcon catheter and could not be evaluated. The u terus is surgically absent. No adnexal lesion is seen. There are bilateral fat-containing groin herni as, left larger than right. Skeletal structures: The skeletal structures are osteopenic. Moderate lumbosacral spondylosis is obse rved. No lytic or blastic lesions are seen. Arthritic change is noted in the hips. Soft tissues: There is anasarca of the body wall. IMPRESSION: 1. Again seen are findings of acute versus acute on chronic pancreatitis. 2. A cyst gastrostomy tube is in place. No organized peripancreatic fluid collection is seen on this unenhanced examination.. 3. Pleural effusions, anasarca, and abdominal ascites indicates fluid overload. 4. Again seen are numerous mildly enlarged mesenteric and retroperitoneal lymph nodes, as well as ome ntal nodularity. Metastatic disease is not excluded. Correlate for any oncological history. 5. Again seen are numerable pulmonary nodules at both lung bases. These are pathologically determined , and metastatic disease is not excluded. Again, this should be compared to any prior outside imaging studies and for any oncological history. 6. Additional findings as above. ACT 112: Negative or not required by law. Electronically signed by: David Edouard M.D. 12/09/2023 2:16 PM
[2023-12-09 14:29] LABS: Allen Test Pos (Pos); Base Excess ABG -2.1 mEq/L (-9-1.8); HCO3 ABG 21 mmol/L (19-24); Oxygen Saturation ABG 97.8 % (90-95); PCO2 ABG 31 mmHg (35-46); PO2 ABG 93 mmHg (80-95); pH ABG 7.44 (7.35-7.45)
[2023-12-09] MEDS: ACETAMINOPHEN 1,000 MG/100 ML VIAL IV STA (14:30)
--- NOTE | 2023-12-09 15:32 | History & Physical Report ---
Date of Service December 09, 2023 Assessment & Plan (1) Sepsis: Plan: Sepsis secondary to UTI and possibly pneumonia. Patient presents from [facility] on account of worsening lethargy poor appetite low oxygen saturations. Urinalysis shows evidence of UTI and also chest x-ray showed possible pneumonia although difficult to tell on account of pulmonary congestion. However urine and blood cultures already obtained Patient resuscitated with IV saline 30 mL/kg Continue empiric IV cefepime, she received a dose of IV vancomycin in the ED however in view of worsening renal function will hold vancomycin. (2) Acute UTI (urinary tract infection): Plan: Urinalysis showed evidence of UTI Urine cultures already obtained Continue empiric IV cefepime (3) Acute pancreatitis: Plan: Sometime last month, 11/13/2023, patient had acute pancreatitis with pancreatic pseudocyst She is now status post ERCP with cystogastrostomy CT abdomen showed evidence of possible chronic pancreatitis and also an intact cyst gastrectomy (4) Anasarca: Plan: Anasarca is possibly a combination of congestive heart failure and also low albumin Patient will benefit from IV albumin infusion and also diuresis with Lasix 40 mg twice daily (5) History of CVA (cerebrovascular accident): Plan: History of CVA x 2 With residual dysarthria (6) Acute kidney injury: Plan: Worsening kidney function from a baseline of 0.77-1.84 today Could be prerenal due to dehydration or could be due to congestive heart failure as well and fluid overload Received IV fluid resuscitation in the ED however on account of anasarca will institute diuresis with Lasix Monitor BMP (7) Severe malnutrition: Plan: As indicated by low albumin Encourage nutritional supplements ensure x 3 (8) Acute superficial venous thrombosis of left lower extremity: Plan: Doppler showed evidence of superficial thrombosis but very close to the deep veins However we will hold off anticoagulation in view of thrombocytopenia, platelets 59 today Plan Admit to PCU Monitor blood pressure closely History of Present Illness Chief Complaint: Generalized weakness Primary Care Provider: GEREMIAS Jett Is an 83-year-old female with a history of previous stroke with residual dysarthria, hypertension, breast cancer, atrial tachycardia with pacemaker who presents today from [facility] rehab on account of low blood pressures, low saturation poor appetite and worsening confusion. Patient was admitted here at [facility] sometime last month and was discharged on November 13, 2023 after she was managed for acute pancreatitis. During that admission, it was determined that she was also going to need cystogastrostomy on account of pancreatic pseudocyst. For that reason she was transferred to [facility] where she had the operation. After the operation she was then sent to [facility] for rehab. She has been in rehab ever since and was then brought to the hospital today from [facility] following the above complaints. Some of the history was obtained from the ED physician and also patient's and son by the bedside. Here in the emergency department initial blood pressures were low and saturations were low serum lactate was 3.2 ABG showed a pH of 7.44 pCO2 31 bicarbonate of 21. Serum creatinine was 1.84, just a month ago it was 0.77. CT abdomen was done which still showed evidence of acute on chronic pancreatitis, and a cyst gastrostomy tube in place and also pleural effusion on anasarca and abdominal ascites indicating fluid overload. Venous Doppler showed evidence of occlusive superficial venous thrombosis but very close to the common femoral vein. Patient was resuscitated with IV fluid and blood cultures were obtained she did empirically started on IV antibiotics and will be admitted to the hospital for management. Allergies Allergy/AdvReac Type Severity Reaction Status Date / Time Bactrim Allergy Unknown VOMITING Verified 10/02/17 07:48 celecoxib Allergy Unknown ELEVATED Verified 10/02/17 07:48 LIVER ENYZMES oxytetracycline Allergy Unknown ORAL Verified 10/02/17 07:48 MED-RASH polymyxin B Allergy Unknown ORAL Verified 10/02/17 07:48 MED-RASH tramadol Allergy Unknown UNABLE TO Verified 10/02/17 07:48 SLEEP Home Medications Medication Instructions Recorded Confirmed Type Asmanex Twisthaler 2 puff inhalation BID ##0 09/07/17 11/09/23 History buspirone 5 mg tablet 5 mg PO BID #0 tabs 09/07/17 11/09/23 History carvedilol 25 mg tablet 25 mg PO BID #0 tabs 09/07/17 11/09/23 History levothyroxine 100 mcg tablet 100 mcg PO QAM 90 days #90 tabs 09/07/17 11/09/23 History Ferrous Sulfate 325 mg PO .NOON 11/09/23 11/09/23 History albuterol sulfate 90 mcg/actuation 2 puff inhalation Q6H PRN 11/09/23 11/09/23 History aerosol inhaler sob/wheezing atorvastatin 40 mg tablet 40 mg PO DAILY 11/09/23 11/09/23 History benzonatate 100 mg capsule 100 mg PO TID PRN Cough 11/09/23 11/09/23 History furosemide 40 mg tablet 40 mg PO DAILY 11/09/23 11/09/23 History ykeswy-luideyvs-hcmnrqj 1 cap PO UD 11/09/23 11/09/23 History 6,000-19,000-30,000 unit capsule,delayed rel (Creon) lorazepam 0.5 mg tablet 0.5 mg PO Q8H PRN Other 11/09/23 11/09/23 History montelukast 10 mg tablet 10 mg PO .NOON 11/09/23 11/09/23 History ondansetron 4 mg disintegrating 4 mg PO HS 11/09/23 11/09/23 History tablet oxybutynin chloride 5 mg tablet 5 mg PO PM 11/09/23 11/09/23 History pantoprazole 40 mg tablet,delayed 40 mg PO QAM 11/09/23 11/09/23 History release spironolactone 100 mg tablet 100 mg PO QAM 11/09/23 11/09/23 History hydromorphone 0.5 mg/0.5 mL 0.5 mg (0.5 mL) IV Q6H PRN #0 mL 11/13/23 Rx injection syringe lorazepam 0.5 mg tablet 0.5 mg PO BID #0 tabs 11/13/23 Rx miconazole nitrate 2 % topical 1 applic EXT PRN PRN rash #0 grams 11/13/23 Rx powder (Desenex) ondansetron HCl (PF) 4 mg/2 mL 4 mg (2 mL) IV Q6H PRN #0 mL 11/13/23 Rx injection solution Past Med/Surg History Problem List Acute superficial venous thrombosis of left lower extremity Anasarca Sepsis Acute UTI (urinary tract infection) (Acute) Abdominal pain (Acute) Acute hypotension (Acute) AMS (altered mental status) (Acute) Urinary incontinence Severe malnutrition Acute kidney injury Elevated serum creatinine Melena Acute dehydration (Acute) Acute renal failure (Acute) Thrombocytopenia Elevated troponin (Acute) Acute pancreatitis (Acute) History of CVA (cerebrovascular accident) Anemia S/P TKR (total knee replacement) Social History Smoking Status: Never smoker Hx Alcohol Use: No Hx Substance Use: No Preferred Language: [place] Citizen Communication Ability: Effective Special Education Assistant Required: No Beliefs That Will Affect Care: None Current Living Situation: Spouse Feels Safe at Home: Yes Assistive Devices: Cane, Stair Lift and Walker Review of Systems Review of Systems: All systems reviewed are negative, apart from the ones contained in the history. Physical Exam Physical Exam: The patient is awake, alert and oriented 3, well developed and well nourished, normocephalic and atraumatic, lying in bed and in no acute distress. HEENT--PERRL, EOMI, mucous membranes and oropharynx mildly dry Neck--supple. No JVD. No bruits. Thyroid normal, trachea midline, no adenopathy. Heart--normal S1 and S2. No murmurs, rubs or gallops. Lungs--Reduced air entry on auscultation, bibasilar crackles Abdomen--normal bowel sounds and soft. Distended Extremities--no cyanosis or clubbing. Bilateral leg edema. Dermatologic--normal skin turgor, normal color, no abnormal lymph nodes, no rash. Neurologic--cranial nerves II through XII grossly intact. Rheumatologic--normal range of motion. Psychiatric--normal affect. Results & Data Results & Data Vital Signs (Past 12 Hours) Vital Signs Temp Pulse Resp BP Pulse Ox O2 Del Method 12/09/23 14:21 93 H 21 96 12/09/23 14:16 117/40 L 12/09/23 14:03 86 18 97 Room Air 12/09/23 14:00 87 21 94 12/09/23 14:00 107/58 L 12/09/23 13:57 90 21 98 12/09/23 13:39 96 H 24 99 12/09/23 13:21 85 20 96 12/09/23 13:12 88 21 95 12/09/23 13:12 84/59 L 12/09/23 12:30 102/71 12/09/23 12:21 94 H 27 H 96 12/09/23 12:07 93 H 12/09/23 12:03 94 12/09/23 12:03 91/60 L 12/09/23 11:51 96 H 27 H 96 12/09/23 11:51 76/51 L 12/09/23 11:45 98 H 25 H 97 12/09/23 11:34 100 Room Air 12/09/23 11:34 98.7 F 106 H 20 111/68 100 Room Air 12/09/23 11:31 85/54 L 12/09/23 11:30 102 H 25 H 97 12/09/23 11:21 103 H 26 H 99 Code Status & VTE Plan VTE Prophylaxis Plan VTE Prophylaxis will be ordered: Yes PG Care Time/CCT Total # of Minutes Spent Total Time Spent with Patient: Total time spent is greater than 50% in coordination of care (as documented) at patient's floor/unit and/or counseling patient: Coding Level of Care Code 28626 INT INP/OBS CARE 3/75MIN Diagnoses Sepsis A41.9 Acute UTI (urinary tract infection) N39.0 Acute pancreatitis K85.90 Anasarca R60.1 History of CVA (cerebrovascular accident) Z86.73 Acute kidney injury N17.9 Severe malnutrition E43 Acute superficial venous thrombosis of left lower extremity I82.812 Time Spent (min) 75
[2023-12-09 16:00] LABS: Adenovirus PCR Not Detected (NotDetected); Bordetella parapertussis PCR Not Detected (NotDetected); Bordetella pertussis PCR Not Detected (NotDetected); Chlamydia pneumoniae PCR Not Detected (NotDetected); Coronavirus 229E PCR Not Detected (NotDetected); Coronavirus CoV-2 (COVID19)PCR Not Detected (NotDetected); Coronavirus HKU1 PCR Not Detected (NotDetected); Coronavirus NL63 PCR Not Detected (NotDetected); Coronavirus OC43PCR Not Detected (NotDetected); Human Metapneumovirus PCR Not Detected (NotDetected); Influenza A PCR Not Detected (NotDetected); Influenza B PCR Not Detected (NotDetected); Mycoplasma pneumoniae PCR Not Detected (NotDetected); Parainfluenza Virus 1 PCR Not Detected (NotDetected); Parainfluenza Virus 2 PCR Not Detected (NotDetected); Parainfluenza Virus 3 PCR Not Detected (NotDetected); Parainfluenza Virus 4 PCR Not Detected (NotDetected); Respiratory Syncytial VirusPCR Not Detected (NotDetected); Rhinovirus/Enterovirus PCR Not Detected (NotDetected)
[2023-12-09] MEDS: MIDODRINE HCL 10 MG TAB PO ONE (16:03)
[2023-12-09] MEDS ORDERED: CEFEPIME 2,000 MG in SYRINGE 0 ML IV SCH (17:20)
[2023-12-09] MEDS ORDERED: ALBUTEROL HFA 8 GM INHALER INH PRN (17:20)
[2023-12-09] MEDS: FUROSEMIDE 40 MG/4 ML VIAL IV SCH (19:21)
[2023-12-09] MEDS: ALBUMIN 25% 25 GM/100 ML VIAL IV SCH (19:57)
[2023-12-09] MEDS: PANCREAZE (LIPASE 10,500U) CAP PO SCH (21:11)
[2023-12-09] MEDS: oxyBUTYnin chloride 5 MG TAB PO SCH (21:11)
[2023-12-09] MEDS: MIDODRINE HCL 2.5 MG TAB PO SCH (21:11)
[2023-12-09] MEDS: CEFEPIME 1,000 MG in SYRINGE 0 ML IV SCH (23:31)
[2023-12-10] MEDS: LEVOTHYROXINE SODIUM 100 MCG TABLET PO SCH (05:07)
--- NOTE | 2023-12-10 07:55 | Electrocardiogram Report ---
Test Reason : Blood Pressure : / mmHG Vent. Rate : 093 BPM Atrial Rate : 098 BPM P-R Int : 000 ms QRS Dur : 124 ms QT Int : 378 ms P-R-T Axes : 000 103 -53 degrees QTc Int : 469 ms Probable Atrial sensing, ventricular pacing Abnormal ECG When compared with ECG of 09-NOV-2023 10:28, HR has increased by 14 bpm Confirmed by Michael Perez ([id number]) on 12/10/2023 7:55:23 AM Referred By: Chelsie Graves Confirmed By:Michael Perez
[2023-12-10 08:00] LABS: Hematocrit (blood only) 22.6 % (37.0-47.0); Hemoglobin 7.2 g/dl (12.0-16.0); Mean Corpuscular Hemoglobin 29.1 pg (25.0-34.0); Mean Corpuscular Hgb Conc 31.9 g/dL (32.0-36.0); Mean Corpuscular Volume 91.5 fL (80.0-100.0); Mean Platelet Volume 11.8 fL (9.4-12.4); Platelet Count 45 K/uL (130-400); RDW Coefficient of Variation 15.9 % (11.5-14.5); RDW Standard Deviation 53.4 fL (36.4-46.3); Red Blood Count 2.47 M/uL (4.20-5.40); White Blood Count 9.07 K/ul (4.8-10.8)
[2023-12-10 08:08] LABS: Calcium 8.7 mg/dl (8.6-10.3); Creatinine Clr Calc Pharmacy 29.5 ml/min; Est GFR (African American) 32.2 ml/min; Est GFR (Non-African American) 27.8 ml/min; Potassium 4.3 mmol/L (3.5-5.1)
[2023-12-10] MEDS: ATORVASTATIN 40 MG TAB PO SCH ×2 (08:21→19:44)
[2023-12-10] MEDS: PANTOprazole 40 MG TAB PO SCH (08:22)
--- NOTE | 2023-12-10 12:07 | Hospitalist Progress Note ---
Date of Service December 10, 2023 Assessment & Plan (1) Sepsis: Plan: Sepsis secondary to UTI and possibly pneumonia. Patient presents from [facility] on account of worsening lethargy poor appetite low oxygen saturations. Urinalysis shows evidence of UTI and also chest x-ray showed possible pneumonia although difficult to tell on account of pulmonary congestion. However urine and blood cultures already obtained Patient resuscitated with IV saline 30 mL/kg Continue empiric IV cefepime, she received a dose of IV vancomycin in the ED however in view of worsening renal function will hold vancomycin. Some improvement following IV antibiotics, continue to monitor (2) Acute UTI (urinary tract infection): Plan: Urinalysis showed evidence of UTI Urine cultures already obtained Continue empiric IV cefepime (3) Acute kidney injury: Plan: Some improvement in renal function, serum creatinine dropped from 1.84-1.60 today Will continue gentle diuresis with IV Lasix, given that the renal function could have been due to fluid overload Continue to monitor kidney functions closely (4) Acute pancreatitis: Plan: Sometime last month, 11/13/2023, patient had acute pancreatitis with pancreatic pseudocyst She is now status post ERCP with cystogastrostomy CT abdomen showed evidence of possible chronic pancreatitis and also an intact cyst gastrectomy (5) Anasarca: Plan: Anasarca is possibly a combination of congestive heart failure and also low albumin Patient will benefit from IV albumin infusion and also diuresis with Lasix 40 mg daily (6) History of CVA (cerebrovascular accident): Plan: History of CVA x 2 With residual dysarthria (7) Severe malnutrition: Plan: As indicated by low albumin Encourage nutritional supplements ensure x 3 (8) Acute superficial venous thrombosis of left lower extremity: Plan: Doppler showed evidence of superficial thrombosis but very close to the deep veins However we will hold off anticoagulation in view of thrombocytopenia, platelets 45 today And INR 1.4 Plan Continue hospitalization Full code DVT prophylaxis SCDs Admission and Anticipated Discharge Date Admission Date: December 09, 2023 Subjective Patient seen and examined, more awake and alert, sitting up in her bed, tolerat ing clear liquid diet denies abdominal pain nausea Review of Systems Review of Systems: All systems reviewed are negative, apart from the ones contained in the history. Physical Exam Physical Exam: The patient is awake, alert and oriented 3, well developed and well nourished, normocephalic and atraumatic, lying in bed and in no acute distress. HEENT--PERRL, EOMI, mucous membranes and oropharynx mildly dry Neck--supple. No JVD. No bruits. Thyroid normal, trachea midline, no adenopathy. Heart--normal S1 and S2. No murmurs, rubs or gallops. Lungs--Reduced air entry on auscultation, bibasilar crackles Abdomen--normal bowel sounds and soft. Distended Extremities--no cyanosis or clubbing. Bilateral leg edema. Dermatologic--normal skin turgor, normal color, no abnormal lymph nodes, no rash. Neurologic--cranial nerves II through XII grossly intact. Rheumatologic--normal range of motion. Psychiatric--normal affect. Results & Data Results & Data Vital Signs (Past 12 Hours) Vital Signs Temp Pulse Pulse Resp BP BP Pulse Ox 12/10/23 11:03 98.1 F 73 16 93/58 L 100 12/10/23 07:52 97.5 F L 94 H 19 90/58 L 94 12/10/23 03:02 97.7 F 84 18 106/68 98 O2 Del Method 12/10/23 11:03 Room Air 12/10/23 07:52 Room Air 12/10/23 03:02 Room Air PG Care Time/CCT Total # of Minutes Spent Total Time Spent with Patient: Total time spent is greater than 50% in coordination of care (as documented) at patient's floor/unit and/or counseling patient: Coding Level of Care Code 23377 SUB INP/OBS CARE 2/35MIN Diagnoses Sepsis A41.9 Acute UTI (urinary tract infection) N39.0 Acute kidney injury N17.9 Acute pancreatitis K85.90 Anasarca R60.1 History of CVA (cerebrovascular accident) Z86.73 Severe malnutrition E43 Acute superficial venous thrombosis of left lower extremity I82.812 Time Spent (min) 35
[2023-12-10] MEDS: ALBUMIN 25% 25 GM/100 ML VIAL IV SCH (12:38)
--- NOTE | 2023-12-10 14:25 | Fluoroscopy Report ---
VIDEO SWALLOW STUDY CLINICAL HISTORY: Aspiration. COMPARISON STUDY: No priors. Fluoroscopy time: 56 seconds. Ka,r: 6.74 mGy FINDINGS: Fluoroscopic guidance is provided to the Department of speech pathology in performing a vid eo swallow study. The patient consumed barium-impregnated pudding, cracker with paste, nectar-thick l iquids, and thin barium while the swallowing mechanism was observed in real-time. There is pharyngeal penetration seen with thin barium. No aspiration was identified with any of the sampled textures. Th ere is pooling of material in the esophagus with delayed passage into the stomach. IMPRESSION: 1. Pharyngeal penetration was seen with thin barium. 2. No aspiration was identified with any of the sampled textures. 3. See dedicated speech pathology report for detailed findings and recommendations. Dictated: 12/10/2023 1:12 PM Transcribed: 12/10/2023 1:21 PM Ruben [id number] [email or web address] Electronically signed by: David Edouard M.D. 12/10/2023 2:24 PM
--- NOTE | 2023-12-10 17:12 | XRay Report ---
XR foot RT min 3V routine CLINICAL HISTORY: Right foot pain and swelling. COMPARISON: None FINDINGS: Alignment of the right foot is anatomic. Tarsometatarsal joints are intact. There is no ac [place] fracture within the right foot. Moderate joint space narrowing and osteophytosis of the right fir st MTP joint is noted. 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 Extensive dorsal forefoot soft tiss ue swelling is present. There is a plantar heel spur. Moderate vascular calcification. IMPRESSION: 1. No acute fractures within the right foot. 2. Extensive right foot soft tissue swelling. 3. 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 ACT 112: Negative or not required by law. Electronically signed by: Joaquin Garcia M.D. 12/10/2023 5:10 PM
[2023-12-10] MEDS: ACETAMINOPHEN 325 MG TAB PO PRN (17:20)
[2023-12-10] MEDS: MIDODRINE HCL 10 MG TAB PO SCH (17:21)
[2023-12-10] MEDS: busPIRone 5 MG TAB PO SCH (19:44)
[2023-12-10] MEDS: MIRTAZAPINE TAB 15 MG TAB PO SCH (19:44)
[2023-12-10] MEDS: oxyCODONE HCL IR 5 MG TAB (IMMEDIATE RELEASE) PO STA (19:45)
[2023-12-10] MEDS: LORazepam 0.5 MG TAB PO SCH (21:48)
[2023-12-11 08:04] LABS: Calcium 8.3 mg/dl (8.6-10.3); Potassium 4.1 mmol/L (3.5-5.1)
[2023-12-11 08:09] LABS: BUN Creatinine Ratio 32.3 (10-20); Creatinine Clr Calc Pharmacy 29.7 ml/min; Est GFR (African American) 32.5 ml/min
[2023-12-11 08:22] LABS: Hematocrit (blood only) 22.5 % (37.0-47.0); Hemoglobin 7.1 g/dl (12.0-16.0); Mean Corpuscular Hemoglobin 29.5 pg (25.0-34.0); Mean Corpuscular Hgb Conc 31.6 g/dL (32.0-36.0); Mean Corpuscular Volume 93.4 fL (80.0-100.0); Mean Platelet Volume 11.8 fL (9.4-12.4); Platelet Count 52 K/uL (130-400); RDW Coefficient of Variation 16.2 % (11.5-14.5); RDW Standard Deviation 55.8 fL (36.4-46.3); Red Blood Count 2.41 M/uL (4.20-5.40); White Blood Count 10.51 K/ul (4.8-10.8)
[2023-12-11] MEDS: FUROSEMIDE 40 MG/4 ML VIAL IV SCH (08:54)
[2023-12-11] MEDS ORDERED: SODIUM CHLORIDE 0.9% 250 ML IV PRN (08:57)
[2023-12-11] MEDS ORDERED: LEVOTHYROXINE SODIUM 100 MCG TABLET PO SCH (09:00)
--- NOTE | 2023-12-11 12:35 | Hospitalist Progress Note ---
Date of Service December 11, 2023 Assessment & Plan (1) Sepsis: Plan: Sepsis secondary to UTI and possibly pneumonia. Patient presents from [facility] on account of worsening lethargy poor appetite low oxygen saturations. Urinalysis shows evidence of UTI and also chest x-ray showed possible pneumonia although difficult to tell on account of pulmonary congestion. Continue empiric IV cefepime, Some improvement following IV antibiotics, continue to monitor (2) Acute UTI (urinary tract infection): Plan: Urinalysis showed evidence of UTI Urine cultures already obtained Continue empiric IV cefepime (3) Acute kidney injury: Plan: Some improvement in renal function, Will continue gentle diuresis with IV Lasix, given that the renal function could have been due to fluid overload Continue to monitor kidney functions closely (4) Acute pancreatitis: Plan: Sometime last month, 11/13/2023, patient had acute pancreatitis with pancreatic pseudocyst She is now status post ERCP with cystogastrostomy CT abdomen showed evidence of possible chronic pancreatitis and also an intact cyst gastrectomy Plan is outpatient follow-up for removal of stent (5) Anasarca: Plan: Anasarca is possibly a combination of congestive heart failure and also low albumin Patient will benefit from IV albumin infusion and also diuresis with Lasix 40 mg daily (6) History of CVA (cerebrovascular accident): Plan: History of CVA x 2 With residual dysarthria (7) Severe malnutrition: Plan: As indicated by low albumin Encourage nutritional supplements ensure x 3 (8) Acute superficial venous thrombosis of left lower extremity: Plan: Doppler showed evidence of superficial thrombosis but very close to the deep veins However we will hold off anticoagulation in view of thrombocytopenia, Continue SCD (9) Encephalopathy: Plan: Metabolic encephalopathy Metabolic encephalopathy on the background of some dementia following stroke x 2 Interval improvement (10) Bony spur: Plan: Patient was finding difficulty bearing weight on the right foot, x-ray showed evidence of a bony spur Patient may benefit from boot Plan Continue hospitalization Full code DVT prophylaxis SCDs Admission and Anticipated Discharge Date Admission Date: December 09, 2023 Subjective Patient seen and examined, more awake and alert, sitting up in her bed, tolerating clear liquid diet denies abdominal pain nausea Review of Systems Review of Systems: All systems reviewed are negative, apart from the ones contained in the history. Physical Exam Physical Exam: The patient is awake, alert and oriented 3, well developed and well nourished, normocephalic and atraumatic, lying in bed and in no acute distress. HEENT--PERRL, EOMI, mucous membranes and oropharynx mildly dry Neck--supple. No JVD. No bruits. Thyroid normal, trachea midline, no adenopathy. Heart--normal S1 and S2. No murmurs, rubs or gallops. Lungs--Reduced air entry on auscultation, bibasilar crackles Abdomen--normal bowel sounds and soft. Distended Extremities--no cyanosis or clubbing. Bilateral leg edema. Dermatologic--normal skin turgor, normal color, no abnormal lymph nodes, no rash. Neurologic--cranial nerves II through XII grossly intact. Rheumatologic--normal range of motion. Psychiatric--normal affect. Results & Data Results & Data Vital Signs (Past 12 Hours) Vital Signs Temp Pulse Pulse Resp BP BP Pulse Ox 12/11/23 10:51 98.6 F 79 20 111/69 97 12/11/23 10:36 97.7 F 81 18 121/63 95 12/11/23 10:21 76 20 100/66 96 12/11/23 10:06 97.5 F L 70 20 119/68 97 12/11/23 07:19 98.1 F 72 16 121/62 97 12/11/23 03:30 97.9 F 69 18 114/71 98 O2 Del Method 12/11/23 10:51 12/11/23 10:36 12/11/23 10:21 12/11/23 10:06 12/11/23 07:19 Room Air 12/11/23 03:30 Room Air PG Care Time/CCT Total # of Minutes Spent Total Time Spent with Patient: Total time spent is greater than 50% in coordination of care (as documented) at patient's floor/unit and/or counseling patient: Coding Level of Care Code 10461 SUB INP/OBS CARE 2/35MIN Diagnoses Sepsis A41.9 Acute UTI (urinary tract infection) N39.0 Acute kidney injury N17.9 Acute pancreatitis K85.90 Anasarca R60.1 History of CVA (cerebrovascular accident) Z86.73 Severe malnutrition E43 Acute superficial venous thrombosis of left lower extremity I82.812 Encephalopathy G93.40 Bony spur M77.9 Time Spent (min) 35
--- NOTE | 2023-12-11 17:13 | Gastrointestinal Consultation ---
Date of Consultation December 11, 2023 Assessment & Plan (1) Dysphagia: I do believe her problems are oropharyngeal so I don't think I have much to offer. She has recently had an EGD which revealed no esophageal abnormalities. The only other option is NPO and PEG tube but I don't want to do that with cystgastrostomy present and family is not interested. Unless there is other help you need I really have nothing to offer at this time. Will sign off. Please call if my services needed further History of Present Illness Reason for Consultation: esophageal dysmotility Attending Physician: Sulma Briseno MD History of Present Illness 83 year old female known to me from prior admit when she had pancreatitis and a pseudocyst. She had cystgastrostomy done by Dr. Fernando and was due to have it removed today. On Sunday she became very weak and was admitted with urosepsis and pneumonia. She has some difficulty with coughing while swallowing and had a swallowing study that showed minimal aspiration and I was asked to see her. She can not provide me much information other than she does have troubles. Her family says she does cough while eating. Speech pathology feels most of her trouble is in the oropharyngeal phase of swallowing Allergies Allergy/AdvReac Type Severity Reaction Status Date / Time Bactrim Allergy Unknown VOMITING Verified 10/02/17 07:48 celecoxib Allergy Unknown ELEVATED Verified 12/09/23 17:02 LIVER ENYZMES oxytetracycline Allergy Unknown ORAL Verified 12/09/23 17:02 MED-RASH polymyxin B Allergy Unknown ORAL Verified 12/09/23 17:02 MED-RASH sulfamethoxazole [Bactrim] Allergy Unknown VOMITING Verified 12/09/23 17:02 tramadol Allergy Unknown UNABLE TO Verified 12/09/23 17:02 SLEEP trimethoprim [Bactrim] Allergy Unknown VOMITING Verified 12/09/23 17:02 Home Medications Medication Instructions Recorded Confirmed Type Magnesium Hydroxide Susp 30 ml PO DAILY PRN Constipation 12/09/23 12/09/23 History Saccharomyces boulardii 250 mg 250 mg PO BID 12/09/23 12/09/23 History capsule acetaminophen 325 mg tablet 650 mg PO Q4 PRN Pain 12/09/23 12/09/23 History (Tylenol) albuterol sulfate 90 mcg/actuation 2 puff inhalation Q6 PRN Wheezing 12/09/23 12/09/23 History aerosol inhaler atorvastatin 40 mg tablet 40 mg PO HS 12/09/23 12/09/23 History benzonatate 100 mg capsule 100 mg PO BID PRN Cough 12/09/23 12/09/23 History buspirone 5 mg tablet 5 mg PO Q12 12/09/23 12/09/23 History calcium carbonate 1,000 mg PO QID PRN Indigestion 12/09/23 12/09/23 History carvedilol 12.5 mg tablet 12.5 mg PO BIDM 12/09/23 12/09/23 History cholecalciferol (vitamin D3) 25 25 mcg PO BID 12/09/23 12/09/23 History mcg (1,000 unit) tablet (Vitamin D3) clopidogrel 75 mg tablet 75 mg PO DAILY 12/09/23 12/09/23 History coenzyme Q10 100 mg capsule 100 mg PO DAILY 12/09/23 12/09/23 History (CoQ-10) cyanocobalamin (vitamin B-12) 1,000 mcg PO DAILY 12/09/23 12/09/23 History 1,000 mcg tablet (Vitamin B-12) docusate sodium 100 mg tablet 100 mg PO BID 12/09/23 12/09/23 History fluticasone furoate 200 1 inh inhalation DAILY 12/09/23 12/09/23 History mcg/actuation blister powder for inhalation furosemide 40 mg tablet 40 mg PO DAILY 12/09/23 12/09/23 History levothyroxine 100 mcg tablet 100 mcg PO DAILY 12/09/23 12/09/23 History dqeoaj-utqvdoqg-pdufoby 1 cap PO QID 12/09/23 12/09/23 History 3,000-10,000-14,000 unit capsule,delayed rel (Zenpep) lorazepam 0.5 mg tablet 0.5 mg PO Q12 12/09/23 12/09/23 History lutein 20 mg capsule 20 mg PO DAILY 12/09/23 12/09/23 History lysine 500 mg tablet 500 mg PO DAILY 12/09/23 12/09/23 History mirtazapine 15 mg tablet 7.5 mg PO HS 12/09/23 12/09/23 History ondansetron HCl 4 mg tablet 4 mg PO ACHS 12/09/23 12/09/23 History polyethylene glycol 3350 17 gram 17 g PO .QLUNCH PRN Constipation 12/09/23 12/09/23 History oral powder packet (Miralax) sennosides 8.6 mg-docusate sodium 1 tab-cap PO .QLUNCH PRN 12/09/23 12/09/23 History 50 mg tablet (Senokot-S) Constipation zinc sulfate 220 mg capsule 220 mg PO DAILY 12/09/23 12/09/23 History Patient History Social History Smoking Status: Never smoker Second Hand Exposure: No; Do You Dip or Chew Tobacco: No; Hx Alcohol Use: No Hx Substance Use: No Preferred Language: Kyrgyz Communication Ability: Effective Certified First Assistant Required: No Beliefs That Will Affect Care: None Current Living Situation: Spouse Feels Safe at Home: Yes Assistive Devices: Cane, Glasses and Walker Review of Systems Review of Systems: Unobtainable due to cognitive status Physical Exam Constitutional: + ill appearing and + thin Neck: trachea midline, no thyromegaly Respiratory: normal respiratory effort, lungs clear to auscultation Cardiovascular: RRR, no murmur, no edema Gastrointestinal (Abdomen): normal bowel sounds, soft, nontender, no hepatosplenomegaly Results & Data Vital Signs (Past 12 Hours) Vital Signs Temp Pulse Pulse Resp BP BP Pulse Ox 12/11/23 12:18 36.4 C L 74 18 120/64 98 12/11/23 11:18 36.4 C L 72 20 124/68 98 12/11/23 10:51 37.0 C 79 20 111/69 97 12/11/23 10:36 36.5 C 81 18 121/63 95 12/11/23 10:21 76 20 100/66 96 12/11/23 10:06 36.4 C L 70 20 119/68 97 12/11/23 07:19 36.7 C 72 16 121/62 97 O2 Del Method 12/11/23 12:18 12/11/23 11:18 12/11/23 10:51 12/11/23 10:36 12/11/23 10:21 12/11/23 10:06 12/11/23 07:19 Room Air Laboratory Results 12/11/23 12/09/23 Range/Units 07:34 11:57 WBC 10.51 (4.8-10.8) K/ul RBC 2.41 L (4.20-5.40) M/uL Hgb 7.1 L (12.0-16.0) g/dl Hct 22.5 L (37.0-47.0) % MCV 93.4 (80.0-100.0) fL MCH 29.5 (25.0-34.0) pg MCHC 31.6 L (32.0-36.0) g/dL RDW Std Deviation 55.8 H (36.4-46.3) fL RDW Coeff of Yan 16.2 H (11.5-14.5) % Plt Count 52 L (130-400) K/uL MPV 11.8 (9.4-12.4) fL Sodium 136 (136-145) mmol/L Potassium 4.1 (3.5-5.1) mmol/L Chloride 106 (98-107) mmol/L Carbon Dioxide 24 (21-32) mmol/L Anion Gap 6 (3-11) BUN 54 H (6-23) mg/dl Creatinine 1.67 H (0.6-1.2) mg/dl Est Cr Clr Drug Dosing 29.7 ml/min Est GFR ( Amer) 32.5 ml/min Est GFR (Non-Af Amer) 28.0 ml/min BUN/Creatinine Ratio 32.3 H (10-20) Glucose 100 H (70-99(Fasting)) mg/dl Calcium 8.3 L (8.6-10.3) mg/dl Blood Type A Positive Antibody Screen NEGATIVE Crossmatch See Detail Diagnostic Findings Abdomen/Pelvis CT 12/09/23 11:23 CT SCAN OF THE ABDOMEN AND PELVIS WITHOUT IV CONTRAST CLINICAL HISTORY: Lower abdominal pain. COMPARISON STUDY: Abdominal CT dated 11/09/2023. TECHNIQUE: CT scan of the abdomen and pelvis is performed from the lung bases to the proximal femora. Images are reviewed in the axial, sagittal, and coronal planes. IV contrast was not administered for this examination as per the refe rring clinician. Note that the examination was performed in significantly suboptimal fashion without oral and IV contrast. A dose lowering technique was utilized adhering to the principles of ALARA. CT DOSE: 2077. mGy.cm FINDINGS: Lung bases: There is postsurgical change from prior cardiac valve surgeries. Pacemaker leads are in place. The heart is enlarged and without pericardial effusion. There are small pleural effusions with dependent atelectasis. There are innumerable bibasilar pulmonary nodules which measure up to 9 mm. There is a small hiatal hernia. There is evidence of previous left mastectomy. Liver: The unenhanced liver is normal in size, contour, and attenuation. There is mild intrahepatic biliary ductal dilatation. Gallbladder: Surgically absent noting clips in the gallbladder fossa. Spleen: Normal in size and attenuation. There are calcified splenic granulomas. Pancreas: The unenhanced pancreas appears enlarged and edematous with peripancreatic infiltration and fluid. A cyst gastrostomy tube is in place. No residual organized peripancreatic fluid collection is seen on this unenhanced examination. Adrenal glands: There is an indeterminate 2.1 cm left adrenal nodule. A 1.5 cm right adrenal nodule meets criteria for a fat-containing adenoma. Kidneys: The unenhanced kidneys demonstrate cortical atrophy and are without hydronephrosis. There are no renal calculi identified. There is no evidence of contour deforming renal mass lesion. Abdominal vasculature: The abdominal aorta is normal in course and caliber noting advanced atherosclerotic calcification. Bowel: There is mild colonic diverticulosis without CT evidence of acute diverticulitis. No bowel obstruction is seen. Residual enteric contrast is noted in the colon. The appendix is nonvisualized. Peritoneum: There is a moderate volume of abdominopelvic ascites. No intraperitoneal free air is seen. Numerous small foci of omental nodularity have not appreciably changed. Lymphadenopathy: Mildly enlarged mesenteric lymph nodes are again seen and measures up to 2.0 cm. There are also mildly enlarged retroperitoneal lymph nodes which measure up to 1.8 cm in length. Pelvic viscera: The bladder is decompressed around a Falcon catheter and could not be evaluated. The uterus is surgically absent. No adnexal lesion is seen. There are bilateral fat-containing groin hernias, left larger than right. Skeletal structures: The skeletal structures are osteopenic. Moderate lumbosacral spondylosis is observed. No lytic or blastic lesions are seen. Arthritic change is noted in the hips. Soft tissues: There is anasarca of the body wall. IMPRESSION: 1. Again seen are findings of acute versus acute on chronic pancreatitis. 2. A cyst gastrostomy tube is in place. No organized peripancreatic fluid collection is seen on this unenhanced examination.. 3. Pleural effusions, anasarca, and abdominal ascites indicates fluid overload. 4. Again seen are numerous mildly enlarged mesenteric and retroperitoneal lymph nodes, as well as omental nodularity. Metastatic disease is not excluded. Correlate for any oncological history. 5. Again seen are numerable pulmonary nodules at both lung bases. These are pathologically determined, and metastatic disease is not excluded. Again, this should be compared to any prior outside imaging studies and for any oncological history. 6. Additional findings as above. ACT 112: Negative or not required by law. Electronically signed by: David Edouard M.D. 12/09/2023 2:16 PM Chest X-Ray 12/09/23 11:23 SINGLE VIEW CHEST CLINICAL HISTORY: Sepsis FINDINGS: An AP, portable, upright chest radiograph is compared to study dated 11/09/2023. A 2-lead cardiac pacemaker is unchanged in position and partially obscures the right upper chest. The heart is enlarged noting atherosclerotic calcification of the thoracic aorta. The prominence of the pulmonary vasculature. There is airspace consolidation of the right lung base and elevation of the right hemidiaphragm. No large pleural effusion or pneumothorax is seen. The bony thorax is grossly intact. Arthritic change is seen in the shoulders and spine. Calcific joint bodies are seen on the left shoulder. IMPRESSION: 1. Cardiomegaly and cardiac pacemaker with prominence of the pulmonary vasculature. Correlate clinically for evidence of fluid overload/congestive change. 2. Airspace consolidation at the right lung base is suspicious for pneumonia/aspiration pneumonitis. Clinical correlation will be required and radiographic follow-up to resolution is recommended ACT 112: Negative or not required by law. Electronically signed by: David Edouard M.D. 12/09/2023 11:[address] 12/09/23 11:23 CT SCAN OF THE BRAIN WITHOUT IV CONTRAST CLINICAL HISTORY: Change in mental status. COMPARISON STUDY: No priors. TECHNIQUE: Unenhanced axial CT scan of the brain is performed from the vertex to the skull base. A dose lowering technique was utilized adhering to the principles of ALARA. FINDINGS: Brain parenchyma: There is age-related involutional change noting moderate subcortical and periventricular microangiopathic disease. There is no hemorrhage, mass effect, or evidence of acute territorial ischemia by CT criteria. There is a chronic infarct in the left periventricular white matter. Callejas-white matter differentiation is preserved. No extra-axial fluid collection is seen. Ventricles, sulci, cisterns: Prominent secondary to involutional change. Intracranial vasculature: There is atherosclerotic calcification of the cavernous carotid and vertebral arteries. Calvarium: Unremarkable. Sinuses and mastoids: The visualized paranasal sinuses are clear. The mastoid air cells are well pneumatized. Orbits: The bony orbits are grossly intact. There are bilateral ocular lens implants. IMPRESSION: There is no hemorrhage, mass effect, or evidence of acute territorial ischemia by CT criteria. ACT 112: Negative or not required by law. Electronically signed by: David Edouard M.D. 12/09/2023 1:00 PM Ankle X-Ray 12/09/23 12:24 RIGHT ANKLE 3 VIEWS CLINICAL HISTORY: Right ankle pain and swelling. FINDINGS: 3 views of the right ankle are obtained. No prior studies are available for comparison at the time of dictation. The skeletal structures are osteopenic. No fracture is seen. The ankle mortise is intact. Degenerative change is noted at the tibiotalar articulation. There is a dorsal heel spur. Soft tissue edema is seen throughout the right leg. Atherosclerotic calcification is observed in the regional arteries. IMPRESSION: Soft tissue swelling with no acute bony abnormality identified. Electronically signed by: David Edouard M.D. 12/09/2023 1:45 PM Venous Doppler Study 12/09/23 12:24 ULTRASOUND RIGHT LOWER EXTREMITY VENOUS CLINICAL HISTORY: Right leg pain and swelling. Sepsis.. COMPARISON STUDY: No priors. TECHNIQUE: Real-time, grayscale, and color Doppler sonography of the deep veins of the right lower extremity was performed from the inguinal crease to the calf. Compression and augmentation were utilized. FINDINGS: There is no sonographic evidence of deep venous thrombosis identified in the right lower extremity. The common femoral, superficial femoral, and popliteal veins are patent and normally compressible. There is occlusive superficial venous thrombosis in the greater saphenous vein within 1 cm of the junction with common femoral vein. This extends into the proximal thigh. The patient declined imaging more distally. The profunda femoris vein at the junction with the common femoral vein is clear. The visualized calf veins are patent. Soft tissue edema is seen in the right leg. IMPRESSION: 1. There is no sonographic evidence of deep venous thrombosis identified in the right lower extremity. 2. There is occlusive superficial venous thrombosis within the greater saphenous vein. This approaches within 1 cm of the common femoral vein. ACT 112: Negative or not required by law. Electronically signed by: David Edouard M.D. 12/09/2023 1:57 PM Videofluoroscopic Swallow 12/10/23 11:30 VIDEO SWALLOW STUDY CLINICAL HISTORY: Aspiration. COMPARISON STUDY: No priors. Fluoroscopy time: 56 seconds. Ka,r: 6.74 mGy FINDINGS: Fluoroscopic guidance is provided to the Department of speech pathology in performing a video swallow study. The patient consumed barium- impregnated pudding, cracker with paste, nectar-thick liquids, and thin barium while the swallowing mechanism was observed in real-time. There is pharyngeal penetration seen with thin barium. No aspiration was identified with any of the sampled textures. There is pooling of material in the esophagus with delayed passage into the stomach. IMPRESSION: 1. Pharyngeal penetration was seen with thin barium. 2. No aspiration was identified with any of the sampled textures. 3. See dedicated speech pathology report for detailed findings and recommendations. Dictated: 12/10/2023 1:12 PM Transcribed: 12/10/2023 1:21 PM Ruben [id number] [email or web address] Electronically signed by: David Edouard M.D. 12/10/2023 2:24 PM Foot X-Ray 12/10/23 14:22 XR foot RT min 3V routine CLINICAL HISTORY: Right foot pain and swelling. COMPARISON: None FINDINGS: Alignment of the right foot is anatomic. Tarsometatarsal joints are intact. There is no acute fracture within the right foot. Moderate joint space narrowing and osteophytosis of the right first MTP joint is noted. 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 Extensive dorsal forefoot soft tissue swelling is present. There is a plantar heel spur. Moderate vascular calcification. IMPRESSION: 1. No acute fractures within the right foot. 2. Extensive right foot soft tissue swelling. 3. 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 ACT 112: Negative or not required by law. Electronically signed by: Joaquin Garcia M.D. 12/10/2023 5:10 PM
[2023-12-12 07:58] LABS: Hemoglobin 9.3 g/dl (12.0-16.0); Mean Corpuscular Hemoglobin 28.6 pg (25.0-34.0); Mean Corpuscular Hgb Conc 32.1 g/dL (32.0-36.0); Mean Corpuscular Volume 89.2 fL (80.0-100.0); Platelet Count 64 K/uL (130-400); RDW Coefficient of Variation 16.6 % (11.5-14.5); RDW Standard Deviation 54.8 fL (36.4-46.3); Red Blood Count 3.25 M/uL (4.20-5.40); White Blood Count 12.42 K/ul (4.8-10.8)
[2023-12-12 08:06] LABS: Calcium 8.1 mg/dl (8.6-10.3); Creatinine Clr Calc Pharmacy 35.3 ml/min; Est GFR (African American) 39.5 ml/min; Est GFR (Non-African American) 34.1 ml/min; Potassium 3.9 mmol/L (3.5-5.1)
[2023-12-12] MEDS: bisacodyL 10 MG SUPP PR STA (09:38)
[2023-12-12] MEDS: POLYETHYLENE (MIRALAX) 17 GM PACK PO SCH (09:38)
--- NOTE | 2023-12-12 12:08 | Hospitalist Progress Note ---
Date of Service December 12, 2023 Assessment & Plan (1) Sepsis: Plan: Sepsis secondary to UTI and possibly pneumonia. Now resolving following antibiotics Cultures remain negative (2) Acute UTI (urinary tract infection): Plan: Urinalysis showed evidence of UTI Urine cultures already obtained,Negative so far Continue empiric IV cefepime (3) Acute kidney injury: Plan: Some improvement in renal function, Will continue gentle diuresis with IV Lasix, given that the renal function could have been due to fluid overload Will hold Lasix for today Continue to monitor kidney functions closely (4) Acute pancreatitis: Plan: Sometime last month, 11/13/2023, patient had acute pancreatitis with pancreatic pseudocyst She is now status post ERCP with cystogastrostomy CT abdomen showed evidence of possible chronic pancreatitis and also an intact cyst gastrectomy Plan is outpatient follow-up for removal of stent (5) Anasarca: Plan: Anasarca is possibly a combination of congestive heart failure and also low albumin Patient will benefit from IV albumin infusion and also diuresis with Lasix 40 mg daily (6) History of CVA (cerebrovascular accident): Plan: History of CVA x 2 With residual dysarthria (7) Severe malnutrition: Plan: As indicated by low albumin Encourage nutritional supplements ensure x 3 (8) Acute superficial venous thrombosis of left lower extremity: Plan: Doppler showed evidence of superficial thrombosis but very close to the deep veins However we will hold off anticoagulation in view of thrombocytopenia, Continue SCD (9) Encephalopathy: Plan: Metabolic encephalopathy Metabolic encephalopathy on the background of some dementia following stroke x 2 Interval improvement (10) Bony spur: Plan: Patient was finding difficulty bearing weight on the right foot, x-ray showed evidence of a bony spur Patient may benefit from boot (11) Dysphagia: Plan: Oropharyngeal dysphagia. GI GI off and PEG tube however family declined Continue to tolerate diet, minced meat soft consistency (12) Constipated: Plan: Patient has not had a bowel movement in a couple of days Continue MiraLAX, add Dulcolax Plan Continue hospitalization, Discharge to rehab when accepted Full code DVT prophylaxis SCDs Admission and Anticipated Discharge Date Admission Date: December 09, 2023 Subjective Patient seen and examined, more awake and alert, sitting up in her bed, tolerating diet denies abdominal pain nausea, Says she has not had a bowel movement Review of Systems Review of Systems: All systems reviewed are negative, apart from the ones contained in the history. Physical Exam Physical Exam: The patient is awake, alert and oriented 3, well developed and well nourished, normocephalic and atraumatic, lying in bed and in no acute distress. HEENT--PERRL, EOMI, mucous membranes and oropharynx mildly dry Neck--supple. No JVD. No bruits. Thyroid normal, trachea midline, no adenopathy. Heart--normal S1 and S2. No murmurs, rubs or gallops. Lungs--Reduced air entry on auscultation, bibasilar crackles Abdomen--normal bowel sounds and soft. Distended Extremities--no cyanosis or clubbing. Bilateral leg edema. Dermatologic--normal skin turgor, normal color, no abnormal lymph nodes, no rash. Neurologic--cranial nerves II through XII grossly intact. Rheumatologic--normal range of motion. Psychiatric--normal affect. Results & Data Results & Data Vital Signs (Past 12 Hours) Vital Signs Temp Pulse Pulse Resp BP Pulse Ox O2 Del Method 12/12/23 10:48 97.5 F L 64 20 149/98 H 97 Room Air 12/12/23 08:49 Room Air 12/12/23 08:49 70 12/12/23 07:31 98.2 F 74 19 105/67 94 Room Air PG Care Time/CCT Total # of Minutes Spent Total Time Spent with Patient: Total time spent is greater than 50% in coordination of care (as documented) at patient's floor/unit and/or counseling patient: Coding Level of Care Code 84368 SUB INP/OBS CARE 2/35MIN Diagnoses Sepsis A41.9 Acute UTI (urinary tract infection) N39.0 Acute kidney injury N17.9 Acute pancreatitis K85.90 Anasarca R60.1 History of CVA (cerebrovascular accident) Z86.73 Severe malnutrition E43 Acute superficial venous thrombosis of left lower extremity I82.812 Encephalopathy G93.40 Bony spur M77.9 Dysphagia R13.10 Constipated K59.00 Time Spent (min) 35
[2023-12-12] MEDS: ONDANSETRON INJ 2 MG/ML 2 ML VIAL IV PRN (12:23)
[2023-12-12] MEDS: MIDODRINE HCL 2.5 MG TAB PO SCH (13:23)
[2023-12-13 07:18] LABS: Hematocrit (blood only) 29.8 % (37.0-47.0); Hemoglobin 9.7 g/dl (12.0-16.0); Mean Corpuscular Hemoglobin 28.8 pg (25.0-34.0); Mean Corpuscular Hgb Conc 32.6 g/dL (32.0-36.0); Mean Corpuscular Volume 88.4 fL (80.0-100.0); Mean Platelet Volume 10.5 fL (9.4-12.4); Platelet Count 53 K/uL (130-400); RDW Coefficient of Variation 16.4 % (11.5-14.5); RDW Standard Deviation 53.4 fL (36.4-46.3); Red Blood Count 3.37 M/uL (4.20-5.40); White Blood Count 9.21 K/ul (4.8-10.8)
[2023-12-13 07:44] LABS: BUN Creatinine Ratio 42.9 (10-20); Calcium 7.8 mg/dl (8.6-10.3); Creatinine Clr Calc Pharmacy 39.8 ml/min; Est GFR (African American) 45.6 ml/min; Est GFR (Non-African American) 39.4 ml/min; Potassium 4.1 mmol/L (3.5-5.1)
[2023-12-13] MEDS: bisacodyL 10 MG SUPP PR STA (11:12)
--- NOTE | 2023-12-13 12:18 | Hospitalist Progress Note ---
Date of Service December 13, 2023 Assessment & Plan (1) Sepsis: Plan: Sepsis secondary to UTI and possibly pneumonia. Now resolving following antibiotics Cultures remain negative (2) Acute UTI (urinary tract infection): Plan: Urinalysis showed evidence of UTI Urine cultures already obtained,Negative so far Continue empiric IV cefepime (3) Acute kidney injury: Plan: Kidney function continues to improve Avoid nephrotoxic's. (4) Acute pancreatitis: Plan: Sometime last month, 11/13/2023, patient had acute pancreatitis with pancreatic pseudocyst She is now status post ERCP with cystogastrostomy CT abdomen showed evidence of possible chronic pancreatitis and also an intact cyst gastrectomy Plan is outpatient follow-up for removal of stent (5) Anasarca: Plan: Anasarca is possibly a combination of congestive heart failure and also low albumin Much improved following IV albumin infusion and diuresis (6) History of CVA (cerebrovascular accident): Plan: History of CVA x 2 With residual dysarthria (7) Severe malnutrition: Plan: As indicated by low albumin Encourage nutritional supplements ensure x 3 (8) Acute superficial venous thrombosis of left lower extremity: Plan: Doppler showed evidence of superficial thrombosis but very close to the deep veins However we will hold off anticoagulation in view of thrombocytopenia, Continue SCD (9) Encephalopathy: Plan: Metabolic encephalopathy Metabolic encephalopathy on the background of some dementia following stroke x 2 Interval improvement (10) Bony spur: Plan: Patient was finding difficulty bearing weight on the right foot, x-ray showed evidence of a bony spur Patient may benefit from boot (11) Dysphagia: Plan: Oropharyngeal dysphagia. GI GI off and PEG tube however family declined Continue to tolerate diet, minced meat soft consistency (12) Constipated: Plan: Patient has not had a bowel movement in a couple of days Continue MiraLAX, add Dulcolax Plan Continue hospitalization, Discharge to rehab when accepted, Hopefully tomorrow Sunday Full code DVT prophylaxis SCDs Admission and Anticipated Discharge Date Admission Date: December 09, 2023 Subjective Patient seen and examined, more awake and alert, sitting up in her bed, tolerating diet denies abdominal pain nausea, Says she has not had a bowel movement, And says she does not like eggs for breakfast, she would prefer fruit and vegetables Review of Systems Review of Systems: All systems reviewed are negative, apart from the ones contained in the history. Physical Exam Physical Exam: The patient is awake, alert and oriented 3, well developed and well nourished, normocephalic and atraumatic, lying in bed and in no acute distress. HEENT--PERRL, EOMI, mucous membranes and oropharynx mildly dry Neck--supple. No JVD. No bruits. Thyroid normal, trachea midline, no adenopathy. Heart--normal S1 and S2. No murmurs, rubs or gallops. Lungs--Reduced air entry on auscultation, bibasilar crackles Abdomen--normal bowel sounds and soft. Distended Extremities--no cyanosis or clubbing. Bilateral leg edema. Dermatologic--normal skin turgor, normal color, no abnormal lymph nodes, no rash. Neurologic--cranial nerves II through XII grossly intact. Rheumatologic--normal range of motion. Psychiatric--normal affect. Results & Data Results & Data Vital Signs (Past 12 Hours) Vital Signs Temp Pulse Pulse Resp BP BP Pulse Ox 12/13/23 10:42 98.6 F 72 19 123/82 95 12/13/23 07:40 98.1 F 96 H 19 131/90 94 12/13/23 07:29 87 12/13/23 01:55 98.2 F 94 H 16 127/84 96 O2 Del Method 12/13/23 10:42 Room Air 12/13/23 07:40 Room Air 12/13/23 07:29 12/13/23 01:55 Room Air PG Care Time/CCT Total # of Minutes Spent Total Time Spent with Patient: Total time spent is greater than 50% in coordination of care (as documented) at patient's floor/unit and/or counseling patient: Coding Level of Care Code 06957 SUB INP/OBS CARE 2/35MIN Diagnoses Sepsis A41.9 Acute UTI (urinary tract infection) N39.0 Acute kidney injury N17.9 Acute pancreatitis K85.90 Anasarca R60.1 History of CVA (cerebrovascular accident) Z86.73 Severe malnutrition E43 Acute superficial venous thrombosis of left lower extremity I82.812 Encephalopathy G93.40 Bony spur M77.9 Dysphagia R13.10 Constipated K59.00 Time Spent (min) 35
[2023-12-14 07:21] LABS: Hematocrit (blood only) 29.8 % (37.0-47.0); Hemoglobin 9.4 g/dl (12.0-16.0); Mean Corpuscular Hemoglobin 28.1 pg (25.0-34.0); Mean Corpuscular Hgb Conc 31.5 g/dL (32.0-36.0); Mean Platelet Volume 10.9 fL (9.4-12.4); Platelet Count 53 K/uL (130-400); RDW Coefficient of Variation 16.1 % (11.5-14.5); RDW Standard Deviation 52.5 fL (36.4-46.3); Red Blood Count 3.35 M/uL (4.20-5.40); White Blood Count 8.46 K/ul (4.8-10.8)
[2023-12-14 07:50] LABS: BUN Creatinine Ratio 45.9 (10-20); Calcium 7.7 mg/dl (8.6-10.3); Creatinine Clr Calc Pharmacy 41.2 ml/min; Est GFR (African American) 47.4 ml/min; Est GFR (Non-African American) 40.9 ml/min; Potassium 4.2 mmol/L (3.5-5.1)
--- NOTE | 2023-12-14 10:38 | Hospitalist Progress Note ---
Date of Service December 14, 2023 Assessment & Plan (1) Sepsis: Plan: Sepsis secondary to UTI and possibly pneumonia. Now resolving following antibiotics Cultures remain negative (2) Acute UTI (urinary tract infection): Plan: Urinalysis showed evidence of UTI Urine cultures already obtained,Negative so far Continue empiric IV cefepime (3) Acute kidney injury: Plan: Kidney function continues to improve Avoid nephrotoxic's. (4) Acute pancreatitis: Plan: Sometime last month, 11/13/2023, patient had acute pancreatitis with pancreatic pseudocyst She is now status post ERCP with cystogastrostomy CT abdomen showed evidence of possible chronic pancreatitis and also an intact cyst gastrectomy Plan is outpatient follow-up for removal of stent (5) Anasarca: Plan: Anasarca is possibly a combination of congestive heart failure and also low albumin Much improved following IV albumin infusion and diuresis (6) History of CVA (cerebrovascular accident): Plan: History of CVA x 2 With residual dysarthria (7) Severe malnutrition: Plan: As indicated by low albumin Encourage nutritional supplements ensure x 3 (8) Acute superficial venous thrombosis of left lower extremity: Plan: Doppler showed evidence of superficial thrombosis but very close to the deep veins However we will hold off anticoagulation in view of thrombocytopenia, Continue SCD (9) Encephalopathy: Plan: Metabolic encephalopathy Metabolic encephalopathy on the background of some dementia following stroke x 2 Interval improvement (10) Bony spur: Plan: Patient was finding difficulty bearing weight on the right foot, x-ray showed evidence of a bony spur Patient may benefit from boot (11) Dysphagia: Plan: Oropharyngeal dysphagia. GI GI off and PEG tube however family declined Continue to tolerate diet, minced meat soft consistency (12) Constipated: Plan: Patient has not had a bowel movement in a couple of days Continue MiraLAX, add Dulcolax Plan [facility] [place] however after discussion with the son Wolfgang yesterday he said he wanted a referral for hospice. He said he does not think that his mom, the patient will benefit from rehab. Full code DVT prophylaxis SCDs Admission and Anticipated Discharge Date Admission Date: December 09, 2023 Subjective Patient seen and examined, Had an episode of nausea this morning Review of Systems Review of Systems: All systems reviewed are negative, apart from the ones contained in the history. Physical Exam Physical Exam: The patient is awake, alert and oriented 3, well developed and well nourished, normocephalic and atraumatic, lying in bed and in no acute distress. HEENT--PERRL, EOMI, mucous membranes and oropharynx mildly dry Neck--supple. No JVD. No bruits. Thyroid normal, trachea midline, no adenopathy. Heart--normal S1 and S2. No murmurs, rubs or gallops. Lungs--Reduced air entry on auscultation, bibasilar crackles Abdomen--normal bowel sounds and soft. Distended Extremities--no cyanosis or clubbing. Bilateral leg edema. Dermatologic--normal skin turgor, normal color, no abnormal lymph nodes, no rash. Neurologic--cranial nerves II through XII grossly intact. Rheumatologic--normal range of motion. Psychiatric--normal affect. Results & Data Results & Data Vital Signs (Past 12 Hours) Vital Signs Temp Pulse Pulse Resp BP BP Pulse Ox 12/14/23 07:50 97.7 F 69 20 133/84 93 12/14/23 02:53 98.1 F 68 20 122/69 96 12/13/23 23:00 79 12/13/23 22:42 98.4 F 72 18 125/72 95 O2 Del Method 12/14/23 07:50 Room Air 12/14/23 02:53 Room Air 12/13/23 23:00 12/13/23 22:42 Room Air PG Care Time/CCT Total # of Minutes Spent Total Time Spent with Patient: Total time spent is greater than 50% in coordination of care (as documented) at patient's floor/unit and/or counseling patient: Coding Level of Care Code 87767 SUB INP/OBS CARE 2/35MIN Diagnoses Sepsis A41.9 Acute UTI (urinary tract infection) N39.0 Acute kidney injury N17.9 Acute pancreatitis K85.90 Anasarca R60.1 History of CVA (cerebrovascular accident) Z86.73 Severe malnutrition E43 Acute superficial venous thrombosis of left lower extremity I82.812 Encephalopathy G93.40 Bony spur M77.9 Dysphagia R13.10 Constipated K59.00 Time Spent (min) 35
[2023-12-14] MEDS: HYDROmorphone INJ 0.5 MG/0.5 ML SYR IV STA (19:54)
--- NOTE | 2023-12-14 19:58 | Communication Note ---
Date of Service: December 14, 2023 Contacted by nursing as patient was acutely complaining of RLE pain. Nursing noting increasing serious drainage from the right upper thigh. Family at bedside and expressing significant concern about patient's discomfort. Upon examination, patient's vitals remain stable without fever or tachycardia. RLE significantly edematous with increasing patchy erythema w/o demarcated borders to the dorsal aspect of the right foot. Appreciable serious drainage from the right thigh from 4+ pitting edema. RLE edema > LLE edema. Heart RRR w/ normal S1/S2 and Lungs CTAB. Patient confused at baseline, but persistently repeating 'please help me nurse'. Patient with ongoing Cefepime for broad antibiotic coverage. Known superficial DVT in GSV. Anticoagulation remains held d/t thrombocytopenia. WBC count continues to downtrend (per daytime lab review), thus uncontrolled infection seems unlikely at this time. Will obtain RLE Venous Doppler d/t worsening RLE edema, foot erythema, and pain. Pain management ordered as Tylenol has been ineffective thus far, single dose of 0.25 mg Dilaudid ordered. Nursing noted benefit following pain management. Venous doppler showing occlusive clot in GSV, but no DVT. Suspect patient's symptoms (pain, edema, etc.) are related to superficial thrombophlebitis from active superficial clot. At this time, unable to anticoagulate due to thrombocytopenia. Will proceed with symptom management overnight. Vascular surgery consultation placed. Resident Activity Tracking Resident Involvement: Resident Care Provided Care Provided: Adult Hospital Medicine
--- NOTE | 2023-12-14 21:07 | Ultrasound Report ---
Exam(s): US VENOUS RIGHT LOWER EXTREMITY EXAM: US Duplex Right Lower Extremity Veins CLINICAL HISTORY: Reason for exam: Increasing pain/swelling in RLE. TECHNIQUE: Real-time duplex ultrasound scan of the right lower extremity veins integrating B-mode two-dimensional vascular structure, Doppler spectral analysis, color flow Doppler imaging and compression. COMPARISON: None. FINDINGS: Veins: There is occlusive thrombus greater saphenous vein in the upper and mid thigh. No DVT in the visualized deep veins, including the common femoral, superficial femoral, proximal deep femoral and popliteal veins. The remaining veins demonstrate normal color flow, are normally compressible, with normal phasic flow and/or augmentation response. Soft tissues: No popliteal cyst. IMPRESSION: 1. Occlusive thrombus GSV. 2. No DVT. Electronically signed by: Maryann Cyr M.D. 12/14/23 21:05 PM
[2023-12-15 08:09] LABS: Hematocrit (blood only) 32.1 % (37.0-47.0); Hemoglobin 10.1 g/dl (12.0-16.0); Mean Corpuscular Hemoglobin 28.1 pg (25.0-34.0); Mean Corpuscular Hgb Conc 31.5 g/dL (32.0-36.0); Mean Corpuscular Volume 89.2 fL (80.0-100.0); Mean Platelet Volume 11.7 fL (9.4-12.4); Platelet Count 51 K/uL (130-400); RDW Coefficient of Variation 16.5 % (11.5-14.5); RDW Standard Deviation 53.7 fL (36.4-46.3); White Blood Count 10.07 K/ul (4.8-10.8)
[2023-12-15 08:21] LABS: Calcium 7.8 mg/dl (8.6-10.3); Creatinine Clr Calc Pharmacy 38.4 ml/min; Est GFR (African American) 43.5 ml/min; Est GFR (Non-African American) 37.6 ml/min; Potassium 4.3 mmol/L (3.5-5.1)
--- NOTE | 2023-12-15 10:06 | Discharge Summary ---
Date of Service December 15, 2023 Admission HPI Per Admitting Provider Is an 83-year-old female with a history of previous stroke with residual dysarthria, hypertension, breast cancer, atrial tachycardia with pacemaker who presents today from [facility] rehab on account of low blood pressures, low saturation poor appetite and worsening confusion. Patient was admitted here at [facility] sometime last month and was discharged on November 13, 2023 after she was managed for acute pancreatitis. During that admission, it was determined that she was also going to need cystogastrostomy on account of pancreatic pseudocyst. For that reason she was transferred to [facility] where she had the operation. After the operation she was then sent to [facility] for rehab. She has been in rehab ever since and was then brought to the hospital today from [facility] following the above complaints. Some of the history was obtained from the ED physician and also patient's and son by the bedside. Here in the emergency department initial blood pressures were low and saturations were low serum lactate was 3.2 ABG showed a pH of 7.44 pCO2 31 bicarbonate of 21. Serum creatinine was 1.84, just a month ago it was 0.77. CT abdomen was done which still showed evidence of acute on chronic pancreatitis, and a cyst gastrostomy tube in place and also pleural effusion on anasarca and abdominal ascites indicating fluid overload. Venous Doppler showed evidence of occlusive superficial venous thrombosis but very close to the common femoral vein. Patient was resuscitated with IV fluid and blood cultures were obtained she did empirically started on IV antibiotics and will be admitted to the hospital for management. Principal Diagnosis uti, pna Discharge Exam The patient is awake, alert and oriented 3, well developed and well nourished, normocephalic and atraumatic, lying in bed and in no acute distress. HEENT--PERRL, EOMI, mucous membranes and oropharynx mildly dry Neck--supple. No JVD. No bruits. Thyroid normal, trachea midline, no adenopathy. Heart--normal S1 and S2. No murmurs, rubs or gallops. Lungs--Reduced air entry on auscultation, bibasilar crackles Abdomen--normal bowel sounds and soft. Distended Extremities--no cyanosis or clubbing. Bilateral leg edema. Dermatologic--normal skin turgor, normal color, no abnormal lymph nodes, no rash. Neurologic--cranial nerves II through XII grossly intact. Rheumatologic--normal range of motion. Psychiatric--normal affect. Discharge Data Allergies Allergy/AdvReac Type Severity Reaction Status Date / Time Bactrim Allergy Unknown VOMITING Verified 10/02/17 07:48 celecoxib Allergy Unknown ELEVATED Verified 12/09/23 17:02 LIVER ENYZMES oxytetracycline Allergy Unknown ORAL Verified 12/09/23 17:02 MED-RASH polymyxin B Allergy Unknown ORAL Verified 12/09/23 17:02 MED-RASH sulfamethoxazole [Bactrim] Allergy Unknown VOMITING Verified 12/09/23 17:02 tramadol Allergy Unknown UNABLE TO Verified 12/09/23 17:02 SLEEP trimethoprim [Bactrim] Allergy Unknown VOMITING Verified 12/09/23 17:02 Consultations 12/09/23 14:47 ED Decision to Admit Stat 12/10/23 15:33 Consult Gastroenterology Routine 12/14/23 22:39 Consult Vascular Surgery Routine Ordered Studies 12/09/23 11:23 CT Abdomen and Pelvis [CT abd pelvis wo con] Stat CT head/brain wo con Stat 12/09/23 12:24 US venous doppler LE RT Stat 12/10/23 11:30 Fluoro video [FL video swallow] Routine 12/14/23 19:44 US venous doppler LE RT Stat Hospital Course (1) Sepsis: Sepsis secondary to UTI and possibly pneumonia. Now resolved following antibiotics Cultures remain negative (2) Acute UTI (urinary tract infection): Urinalysis showed evidence of UTI Urine cultures already obtained,Negative so far was on IV cefepime for 6 days switch to po cefdinir for 5 days (3) Acute kidney injury: Kidney function continues to improve Avoid nephrotoxic's. (4) Acute pancreatitis: Sometime last month, 11/13/2023, patient had acute pancreatitis with pancreatic pseudocyst She is now status post ERCP with cystogastrostomy CT abdomen showed evidence of possible chronic pancreatitis and also an intact cyst gastrectomy Plan is outpatient follow-up for removal of stent (5) Anasarca: Anasarca is possibly a combination of congestive heart failure and also low albumin Much improved following IV albumin infusion and diuresis (6) History of CVA (cerebrovascular accident): History of CVA x 2 With residual dysarthria (7) Severe malnutrition: As indicated by low albumin Encourage nutritional supplements ensure x 3 (8) Acute superficial venous thrombosis of left lower extremity: On admission,Doppler showed evidence of superficial thrombosis but very close to the deep veins Due to pain, a Repeat doppler was done 12/13 which still showed occlusive thrombosis of the great saphenous vein However, given some redness, there's a possiblity of thrombophlebitis Will continue mild compress, pain relief and antibiotics However we will hold off anticoagulation in view of thrombocytopenia, Continue SCD (9) Encephalopathy: Metabolic encephalopathy Metabolic encephalopathy on the background of some dementia following stroke x 2 Interval improvement (10) Bony spur: Patient was finding difficulty bearing weight on the right foot, x-ray showed e vidence of a bony spur Patient may benefit from boot (11) Dysphagia: Oropharyngeal dysphagia. GI GI off and PEG tube however family declined Continue to tolerate diet, minced meat soft consistency (12) Constipated: Patient has not had a bowel movement in a couple of days Continue MiraLAX, add Dulcolax Plan Initial plan was for [facility] however after discussion with the son Wolfgang yesterday he said he wanted a referral for hospice. He said he does not think that his mom, the patient will benefit from rehab. Full code DVT prophylaxis SCDs Total Time Total Time Spent Total Time Spent (In Minutes): 35 Discharge Plan Discharge Items Patient Disposition: Transfer Halfway Fac Reason For Visit: SEPSIS Discharge Diagnosis: UTI, PNA Activity: Resume your previous activity Non-emergency contact: Primary Care Provider and Senior [employer] Call non-emergency contact if: you have any medication questions Follow-up/Referrals: Chelsie Graves CRNP [Primary Care Provider] - Diet: Regular Addtl Attending Provider Instructions: please follow up with your regular doctors Pending Studies at Discharge: No Stand-Alone Forms: My [facility] [employer] Skilled Items Patient informed of condition?: Yes DNR: No Discharge Level of Care: Skilled Communicable Disease: No Discharge Prognosis: Stable Lines: None Urinary Catheter: Yes Medications and DC Order Prescriptions: New midodrine 2.5 mg Tablet 5 mg PO TID@0800,1200,1700 30 Days Qty: 90 0RF cefdinir 300 mg capsule 300 mg PO BID 5 Days Qty: 10 0RF Continued furosemide 40 mg tablet 40 mg PO DAILY atorvastatin 40 mg tablet 40 mg PO HS buspirone 5 mg Tablet 5 mg PO Q12 acetaminophen [Tylenol] 325 mg Tablet 650 mg PO Q4 PRN (Reason: Pain) carvedilol 12.5 mg Tablet 12.5 mg PO BIDM Rx Instructions: must administer with a meal/food polyethylene glycol 3350 [Miralax] 17 gram Powder In Packet 17 g PO .QLUNCH PRN (Reason: Constipation) ondansetron HCl 4 mg Tablet 4 mg PO ACHS sennosides-docusate sodium [Senokot-S] 8.6-50 mg Tablet 1 tab-cap PO .QLUNCH PRN (Reason: Constipation) cyanocobalamin (vitamin B-12) [Vitamin B-12] 1,000 mcg Tablet 1,000 mcg PO DAILY clopidogrel 75 mg tablet 75 mg PO DAILY levothyroxine 100 mcg tablet 100 mcg PO DAILY lorazepam 0.5 mg Tablet 0.5 mg PO Q12 benzonatate 100 mg Capsule 100 mg PO BID PRN (Reason: Cough) calcium carbonate 500 mg calcium (1,250 mg) Tablet,Chewable 1,000 mg PO QID PRN (Reason: Indigestion) mirtazapine 15 mg Tablet 7.5 mg PO HS albuterol sulfate 90 mcg/actuation Hfa Aerosol Inhaler 2 puff INHALATION Q6 PRN (Reason: Wheezing) zinc sulfate 220 mg Capsule 220 mg PO DAILY lysine 500 mg Tablet 500 mg PO DAILY docusate sodium 100 mg Tablet 100 mg PO BID coenzyme Q10 [CoQ-10] 100 mg Capsule 100 mg PO DAILY Saccharomyces boulardii 250 mg Capsule 250 mg PO BID cholecalciferol (vitamin D3) [Vitamin D3] 25 mcg (1,000 unit) Tablet 25 mcg PO BID fluticasone furoate 200 mcg/actuation Blister With Device 1 inh INHALATION DAILY Zenpep 3,000-10,000 -14,000-unit Capsule,Delayed Release(Dr/Ec) 1 cap PO QID Magnesium Hydroxide Susp 30 ml PO DAILY PRN (Reason: Constipation) lutein 20 mg Capsule 20 mg PO DAILY Rx Instructions: give with meal/snack Discharge Orders: Discharge Order (Routine); Ordered 12/15/23 Ordered By: Sulma Briseno Admission Data Admit Date/Time: 12/09/23 15:12 Attending Provider: Sulma Briseno Admit Provider: Sulma Briseno Primary Care Provider: Chelsie Graves Other Providers: Sulma Briseno; Yunior Kinsey; [facility]; [facility]; Jacob Danielson Coding Level of Care Code 06266 INP/OBS DISCH >30 MIN Diagnoses Sepsis A41.9 Acute UTI (urinary tract infection) N39.0 Acute kidney injury N17.9 Acute pancreatitis K85.90 Anasarca R60.1 History of CVA (cerebrovascular accident) Z86.73 Severe malnutrition E43 Acute superficial venous thrombosis of left lower extremity I82.812 Encephalopathy G93.40 Bony spur M77.9 Dysphagia R13.10 Constipated K59.00 Time Spent (min) 35
--- NOTE | 2023-12-15 15:22 | Hospitalist Progress Note ---
Date of Service December 15, 2023 Assessment & Plan (1) Sepsis: Plan: Sepsis secondary to UTI and possibly pneumonia. Now resolved following antibiotics Cultures remain negative (2) Acute UTI (urinary tract infection): Plan: Urinalysis showed evidence of UTI Urine cultures already obtained,Negative so far was on IV cefepime for 6 days switch to po cefdinir for 5 days upon discharge (3) Acute kidney injury: Plan: Kidney function continues to improve Avoid nephrotoxic's. (4) Acute pancreatitis: Plan: Sometime last month, 11/13/2023, patient had acute pancreatitis with pancreatic pseudocyst She is now status post ERCP with cystogastrostomy CT abdomen showed evidence of possible chronic pancreatitis and also an intact cyst gastrectomy Plan is outpatient follow-up for removal of stent (5) Anasarca: Plan: Anasarca is possibly a combination of congestive heart failure and also low albumin Much improved following IV albumin infusion and diuresis (6) History of CVA (cerebrovascular accident): Plan: History of CVA x 2 With residual dysarthria (7) Severe malnutrition: Plan: As indicated by low albumin Encourage nutritional supplements ensure x 3 (8) Acute superficial venous thrombosis of left lower extremity: Plan: On admission,Doppler showed evidence of superficial thrombosis but very close to the deep veins Due to pain, a Repeat doppler was done 12/13 which still showed occlusive thro mbosis of the great saphenous vein However, given some redness, there's a possiblity of thrombophlebitis Will continue mild compress, pain relief and antibiotics However we will hold off anticoagulation in view of thrombocytopenia, Continue SCD (9) Encephalopathy: Plan: Metabolic encephalopathy Metabolic encephalopathy on the background of some dementia following stroke x 2 Interval improvement (10) Bony spur: Plan: Patient was finding difficulty bearing weight on the right foot, x-ray showed evidence of a bony spur Patient may benefit from boot (11) Dysphagia: Plan: Oropharyngeal dysphagia. GI GI off and PEG tube however family declined Continue to tolerate diet, minced meat soft consistency (12) Constipated: Plan: Patient has not had a bowel movement in a couple of days Continue MiraLAX, add Dulcolax Plan was supposed to d/c to [facility] today, however, unable to secure transportation Full code DVT prophylaxis SCDs Admission and Anticipated Discharge Date Admission Date: December 09, 2023 Subjective Patient seen and examined, wanted to drink only coffee Review of Systems 2 Review of Systems: All systems reviewed are negative, apart from the ones contained in the history. Physical Exam Physical Exam: The patient is awake, alert and oriented 3, well developed and well nourished, normocephalic and atraumatic, lying in bed and in no acute distress. HEENT--PERRL, EOMI, mucous membranes and oropharynx mildly dry Neck--supple. No JVD. No bruits. Thyroid normal, trachea midline, no adenopathy. Heart--normal S1 and S2. No murmurs, rubs or gallops. Lungs--Reduced air entry on auscultation, bibasilar crackles Abdomen--normal bowel sounds and soft. Distended Extremities--no cyanosis or clubbing. Bilateral leg edema. Dermatologic--normal skin turgor, normal color, no abnormal lymph nodes, no rash. Neurologic--cranial nerves II through XII grossly intact. Rheumatologic--normal range of motion. Psychiatric--normal affect. Results & Data Results & Data Vital Signs (Past 12 Hours) Vital Signs Temp Pulse Pulse Pulse Resp BP Pulse Ox 12/15/23 15:02 98.4 F 71 18 130/84 97 12/15/23 11:48 98.4 F 70 73 17 102/66 96 12/15/23 11:40 98.1 F 72 19 123/85 96 12/15/23 07:38 98.4 F 73 17 102/66 96 12/15/23 07:00 75 12/15/23 04:10 97.7 F 70 17 133/77 98 O2 Del Method 12/15/23 15:02 Room Air 12/15/23 11:48 12/15/23 11:40 Room Air 12/15/23 07:38 Room Air 12/15/23 07:00 12/15/23 04:10 Room Air PG Care Time/CCT Total # of Minutes Spent Total Time Spent with Patient: Total time spent is greater than 50% in coordination of care (as documented) at patient's floor/unit and/or counseling patient: Coding Level of Care Code 62277 SUB INP/OBS CARE 2/35MIN Diagnoses Sepsis A41.9 Acute UTI (urinary tract infection) N39.0 Acute kidney injury N17.9 Acute pancreatitis K85.90 Anasarca R60.1 History of CVA (cerebrovascular accident) Z86.73 Severe malnutrition E43 Acute superficial venous thrombosis of left lower extremity I82.812 Encephalopathy G93.40 Bony spur M77.9 Dysphagia R13.10 Constipated K59.00 Time Spent (min) 35
[2023-12-15] MEDS: HYDROmorphone INJ 0.5 MG/0.5 ML SYR IV ONE (20:12)
[2023-12-16 06:42] LABS: Hematocrit (blood only) 31.9 % (37.0-47.0); Hemoglobin 10.2 g/dl (12.0-16.0); Mean Corpuscular Hemoglobin 28.4 pg (25.0-34.0); Mean Corpuscular Volume 88.9 fL (80.0-100.0); Mean Platelet Volume 12.5 fL (9.4-12.4); Platelet Count 41 K/uL (130-400); RDW Coefficient of Variation 16.5 % (11.5-14.5); RDW Standard Deviation 53.4 fL (36.4-46.3); Red Blood Count 3.59 M/uL (4.20-5.40); White Blood Count 11.65 K/ul (4.8-10.8)
[2023-12-16 07:12] LABS: BUN Creatinine Ratio 45.4 (10-20); Calcium 7.7 mg/dl (8.6-10.3); Creatinine Clr Calc Pharmacy 35.1 ml/min; Est GFR (African American) 39.8 ml/min; Est GFR (Non-African American) 34.4 ml/min; Potassium 4.5 mmol/L (3.5-5.1)
--- NOTE | 2023-12-16 09:23 | Discharge Summary ---
Date of Service December 16, 2023 Admission HPI Per Admitting Provider Is an 83-year-old female with a history of previous stroke with residual dysarthria, hypertension, breast cancer, atrial tachycardia with pacemaker who presents today from [facility] rehab on account of low blood pressures, low saturation poor appetite and worsening confusion. Patient was admitted here at [facility] sometime last month and was discharged on November 13, 2023 after she was managed for acute pancreatitis. During that admission, it was determined that she was also going to need cystogastrostomy on account of pancreatic pseudocyst. For that reason she was transferred to [facility] where she had the operation. After the operation she was then sent to [facility] for rehab. She has been in rehab ever since and was then brought to the hospital today from [facility] following the above complaints. Some of the history was obtained from the ED physician and also patient's and son by the bedside. Here in the emergency department initial blood pressures were low and saturations were low serum lactate was 3.2 ABG showed a pH of 7.44 pCO2 31 bicarbonate of 21. Serum creatinine was 1.84, just a month ago it was 0.77. CT abdomen was done which still showed evidence of acute on chronic pancreatitis, and a cyst gastrostomy tube in place and also pleural effusion on anasarca and abdominal ascites indicating fluid overload. Venous Doppler showed evidence of occlusive superficial venous thrombosis but very close to the common femoral vein. Patient was resuscitated with IV fluid and blood cultures were obtained she did empirically started on IV antibiotics and will be admitted to the hospital for management. Principal Diagnosis UTI, anasarca Discharge Exam The patient is awake, alert and oriented 3, well developed and well nourished, normocephalic and atraumatic, lying in bed and in no acute distress. HEENT--PERRL, EOMI, mucous membranes and oropharynx mildly dry Neck--supple. No JVD. No bruits. Thyroid normal, trachea midline, no adenopathy. Heart--normal S1 and S2. No murmurs, rubs or gallops. Lungs--Reduced air entry on auscultation, bibasilar crackles Abdomen--normal bowel sounds and soft. Distended Extremities--no cyanosis or clubbing. Bilateral leg edema. Dermatologic--normal skin turgor, normal color, no abnormal lymph nodes, no rash. Neurologic--cranial nerves II through XII grossly intact. Rheumatologic--normal range of motion. Psychiatric--normal affect. Discharge Data Allergies Allergy/AdvReac Type Severity Reaction Status Date / Time Bactrim Allergy Unknown VOMITING Verified 10/02/17 07:48 celecoxib Allergy Unknown ELEVATED Verified 12/09/23 17:02 LIVER ENYZMES oxytetracycline Allergy Unknown ORAL Verified 12/09/23 17:02 MED-RASH polymyxin B Allergy Unknown ORAL Verified 12/09/23 17:02 MED-RASH sulfamethoxazole [Bactrim] Allergy Unknown VOMITING Verified 12/09/23 17:02 tramadol Allergy Unknown UNABLE TO Verified 12/09/23 17:02 SLEEP trimethoprim [Bactrim] Allergy Unknown VOMITING Verified 12/09/23 17:02 Consultations 12/09/23 14:47 ED Decision to Admit Stat 12/10/23 15:33 Consult Gastroenterology Routine 12/14/23 22:39 Consult Vascular Surgery Routine Ordered Studies 12/09/23 11:23 CT Abdomen and Pelvis [CT abd pelvis wo con] Stat CT head/brain wo con Stat 12/09/23 12:24 US venous doppler LE RT Stat 12/10/23 11:30 Fluoro video [FL video swallow] Routine 12/14/23 19:44 US venous doppler LE RT Stat Hospital Course (1) Sepsis: Sepsis secondary to UTI and possibly pneumonia. Now resolved following antibiotics Cultures remain negative (2) Acute UTI (urinary tract infection): Urinalysis showed evidence of UTI Urine cultures already obtained,Negative so far was on IV cefepime for 6 days switch to po cefdinir for 5 days upon discharge (3) Acute kidney injury: Kidney function continues to improve Avoid nephrotoxic's. (4) Acute pancreatitis: Sometime last month, 11/13/2023, patient had acute pancreatitis with pancreatic pseudocyst She is now status post ERCP with cystogastrostomy CT abdomen showed evidence of possible chronic pancreatitis and also an intact cyst gastrectomy Plan is outpatient follow-up for removal of stent (5) Anasarca: Anasarca is possibly a combination of congestive heart failure and also low oncotic pressure Much improved following IV albumin infusion and diuresis will continue PO lasix 40mg daily (6) History of CVA (cerebrovascular accident): History of CVA x 2 With residual dysarthria (7) Severe malnutrition: As indicated by low albumin Encourage nutritional supplements ensure x 3 (8) Acute superficial venous thrombosis of left lower extremity: On admission,Doppler showed evidence of superficial thrombosis but very close to the deep veins Due to pain, a Repeat doppler was done 12/13 which still showed occlusive thrombosis of the great saphenous vein However, given some redness, there's a possiblity of thrombophlebitis Will continue mild compress, pain relief and antibiotics However we will hold off anticoagulation in view of thrombocytopenia, Continue SCD (9) Encephalopathy: Metabolic encephalopathy Metabolic encephalopathy on the background of some dementia following stroke x 2 Interval improvement (10) Bony spur: Patient was finding difficulty bearing weight on the right foot, x-ray showed evidence of a bony spur Patient may benefit from boot (11) Dysphagia: Oropharyngeal dysphagia. GI GI off and PEG tube however family declined Continue to tolerate diet, minced meat soft consistency (12) Constipated: Patient has not had a bowel movement in a couple of days Continue MiraLAX, add Dulcolax Plan d/c to [facility] Full code DVT prophylaxis SCDs Total Time Total Time Spent Total Time Spent (In Minutes): 35 Discharge Plan Discharge Items Patient Disposition: Transfer Half-Way Fac Reason For Visit: SEPSIS Discharge Diagnosis: UTI, PNA Activity: Resume your previous activity Non-emergency contact: Primary Care Provider and Lead Fabricator Call non-emergency contact if: you have any medication questions Follow-up/Referrals: Chelsie Graves CRNP [Primary Care Provider] - Diet: Regular Addtl Attending Provider Instructions: please follow up with your regular doctors Pending Studies at Discharge: No Stand-Alone Forms: My [facility] Skilled Items Patient informed of condition?: Yes DNR: No Discharge Level of Care: Skilled Communicable Disease: No Discharge Prognosis: Stable Lines: None Urinary Catheter: Yes Medications and DC Order Prescriptions: New midodrine 2.5 mg Tablet 5 mg PO TID@0800,1200,1700 30 Days Qty: 90 0RF cefdinir 300 mg capsule 300 mg PO BID 5 Days Qty: 10 0RF Continued furosemide 40 mg tablet 40 mg PO DAILY atorvastatin 40 mg tablet 40 mg PO HS buspirone 5 mg Tablet 5 mg PO Q12 acetaminophen [Tylenol] 325 mg Tablet 650 mg PO Q4 PRN (Reason: Pain) carvedilol 12.5 mg Tablet 12.5 mg PO BIDM Rx Instructions: must administer with a meal/food polyethylene glycol 3350 [Miralax] 17 gram Powder In Packet 17 g PO .QLUNCH PRN (Reason: Constipation) ondansetron HCl 4 mg Tablet 4 mg PO ACHS sennosides-docusate sodium [Senokot-S] 8.6-50 mg Tablet 1 tab-cap PO .QLUNCH PRN (Reason: Constipation) cyanocobalamin (vitamin B-12) [Vitamin B-12] 1,000 mcg Tablet 1,000 mcg PO DAILY clopidogrel 75 mg tablet 75 mg PO DAILY levothyroxine 100 mcg tablet 100 mcg PO DAILY lorazepam 0.5 mg Tablet 0.5 mg PO Q12 benzonatate 100 mg Capsule 100 mg PO BID PRN (Reason: Cough) calcium carbonate 500 mg calcium (1,250 mg) Tablet,Chewable 1,000 mg PO QID PRN (Reason: Indigestion) mirtazapine 15 mg Tablet 7.5 mg PO HS albuterol sulfate 90 mcg/actuation Hfa Aerosol Inhaler 2 puff INHALATION Q6 PRN (Reason: Wheezing) zinc sulfate 220 mg Capsule 220 mg PO DAILY lysine 500 mg Tablet 500 mg PO DAILY docusate sodium 100 mg Tablet 100 mg PO BID coenzyme Q10 [CoQ-10] 100 mg Capsule 100 mg PO DAILY Saccharomyces boulardii 250 mg Capsule 250 mg PO BID cholecalciferol (vitamin D3) [Vitamin D3] 25 mcg (1,000 unit) Tablet 25 mcg PO BID fluticasone furoate 200 mcg/actuation Blister With Device 1 inh INHALATION DAILY Zenpep 3,000-10,000 -14,000-unit Capsule,Delayed Release(Dr/Ec) 1 cap PO QID Magnesium Hydroxide Susp 30 ml PO DAILY PRN (Reason: Constipation) lutein 20 mg Capsule 20 mg PO DAILY Rx Instructions: give with meal/snack Discharge Orders: Discharge Order (Routine); Ordered 12/16/23 Ordered By: Sulma Vela/Other Patient Handouts: Incontinence Medicine Women, Eating a High-Fiber Diet, Taking a Diuretic, Kidney Failure Self Care, Taking Your Blood Pressure, What is Delirium?, Dysphagia Aspiration, Diabetes- Hot Weather Safety, ED Lymphedema Admission Data Admit Date/Time: 12/09/23 15:12 Attending Provider: Sulma Briseno Admit Provider: Sulma Briseno Primary Care Provider: Chelsie Graves Other Providers: Sulma Briseno; Yunior Kinsey; [facility]; [facility]; Jacob Danielson Other Interventions: Discharge Summary Assessment (RN) Last Done: 12/16/23 08:37 Coding Level of Care Code 09641 INP/OBS DISCH >30 MIN Diagnoses Sepsis A41.9 Acute UTI (urinary tract infection) N39.0 Acute kidney injury N17.9 Acute pancreatitis K85.90 Anasarca R60.1 History of CVA (cerebrovascular accident) Z86.73 Severe malnutrition E43 Acute superficial venous thrombosis of left lower extremity I82.812 Encephalopathy G93.40 Bony spur M77.9 Dysphagia R13.10 Constipated K59.00 Time Spent (min) 35
[2023-12-16] MEDS: FUROSEMIDE 40 MG TAB PO SCH (09:41)
--- NOTE | 2023-12-16 15:05 | Electrocardiogram Report ---
Test Reason : Blood Pressure : / mmHG Vent. Rate : 094 BPM Atrial Rate : 087 BPM P-R Int : 000 ms QRS Dur : 136 ms QT Int : 400 ms P-R-T Axes : 000 026 085 degrees QTc Int : 500 ms Possible Sinus rhythm with 1st degree A-V block Left bundle branch block Abnormal ECG When compared with ECG of 15-DEC-2023 16:55, Ventricular pacing is no longer present Confirmed by Jose Altman ([id number]) on 12/16/2023 3:05:25 PM Referred By: Chelsie Graves Confirmed By:Jose Altman
== END 2023-12-16 10:41 | DRG 871 ==
LOC: ED 10:57 → EDINP 15:12 → 2S 17:20